=== PATIENT | male | born 1940 | race Caucasian/White ===

== ENCOUNTER → 2020-03-16 11:05 | Outpatient (BNVA) | payer MEDICARE, OTHER, SELFPAY | PROVIDERS: PCP Internal Medicine; Visit Provider Surgery Vascular Surgery | DX: I83.11 Varicose veins of right lower extremity with inflammation (principal); Z98.890 Other specified postprocedural states | CPT/HCPCS: 99213 ==

== ENCOUNTER → 2020-03-23 11:42 | Outpatient (BNVA) | payer MEDICARE, OTHER, SELFPAY | PROVIDERS: PCP Internal Medicine; Visit Provider Internal Medicine | DX: I48.92 Unspecified atrial flutter (principal); Z51.81 Encounter for therapeutic drug level monitoring; Z79.01 Long term (current) use of anticoagulants | CPT/HCPCS: 85610 ==

== ENCOUNTER 2020-04-07 10:39 | Outpatient (REF) | payer MEDICARE, OTHER, SELFPAY ==
[2020-04-07 13:51] LABS: MANUAL DIFF FLAG NO
[2020-04-07 14:02] LABS: Basophils Absolute Auto 0.1 X10*3/uL (0.0-0.2); Basophils Percent Auto 0.9 % (0-2); Hematocrit 45.4 % (42-52); Hemoglobin 14.4 g/dl (14.0-18.0); Imm Gran Abs Auto 0.02 X10*3/uL (0.00-0.03); Imm Gran Pct Auto 0.3 % (0.0-0.4); Mean Corpuscular HGB Conc 31.7 g/dl (31.0-36.0); Mean Corpuscular Hemoglobin 28.2 pg (27.0-33.0); Mean Platelet Volume 12.1 fL (9.4-12.4); Monocytes Absolute Auto 0.8 X10*3/uL (0.1-1.2); Monocytes Percent Auto 10.6 % (2-11); Neutrophils Absolute Auto 4.9 X10*3/uL (2.0-8.3); Neutrophils Percent Auto 62.2 % (45-73); Platelet Count 151 X10*3/uL (160-400); Red Cell Distribution Width 13.4 % (11.0-16.0); White Blood Count 7.8 X10*3/uL (4.8-10.8)
[2020-04-07 14:26] LABS: Alanine Aminotransferase 24 U/L (0-40); Alkaline Phosphatase 71 U/L (39-117); Anion Gap 12 (12-20); Aspartate Amino Transferase 23 U/L (5-37); Bilirubin Total 0.8 mg/dL (0.0-1.0); Blood Urea Nitrogen 26 mg/dL (9-16); Calcium 8.5 mg/dL (8.4-10.2); Carbon Dioxide 29 mmol/L (22-29); Chloride 102 mmol/L (96-108); Cholesterol 209 mg/dL; Estimated Glomerular Filt Rate > 60; Glucose Random 90 mg/dL (60-115); HDL Cholesterol 67 mg/dL; LDL Cholesterol Calculated 113 mg/dl; Potassium 4.5 mmol/l (3.3-5.1); Sodium 138 mmol/L (135-145); Total Protein 6.8 g/dL (6.5-8.0); Triglycerides 147 mg/dL
[2020-04-07 14:47] LABS: Prostate Specific Antigen 0.09 ng/mL (<0.05-4.0)
[2020-04-12 11:41] LABS: IgA 109 mg/dL (70-320); IgG 1312 mg/dL (600-1540); IgM 65 mg/dL (50-300)
== END 2020-04-07 10:40 | disposition home or self-care (01) ==
LOC: HO.HMGCLDS 10:39
PROVIDERS: PCP Internal Medicine; Visit Provider Internal Medicine Medical Oncology
DX: D47.2 Monoclonal gammopathy (principal); N40.0 Benign prostatic hyperplasia without lower urinary tract symptoms; C67.9 Malignant neoplasm of bladder, unspecified; C61 Malignant neoplasm of prostate; E66.09 Other obesity due to excess calories
CPT/HCPCS: 36415; 80053; 80061; 82784; 84153; 85025; 86334

== ENCOUNTER → 2020-04-20 11:30 | Outpatient (BNVA) | payer MEDICARE, OTHER, SELFPAY | PROVIDERS: PCP Internal Medicine; Visit Provider Internal Medicine | DX: I48.92 Unspecified atrial flutter (principal); Z51.81 Encounter for therapeutic drug level monitoring; Z79.01 Long term (current) use of anticoagulants | CPT/HCPCS: 85610; 99211 ==

== ENCOUNTER → 2020-05-20 10:49 | Outpatient (BNVA) | payer MEDICARE, OTHER, SELFPAY | PROVIDERS: PCP Internal Medicine; Visit Provider Internal Medicine | DX: I48.92 Unspecified atrial flutter (principal); Z51.81 Encounter for therapeutic drug level monitoring; Z79.01 Long term (current) use of anticoagulants | CPT/HCPCS: 85610; 99211 ==

== ENCOUNTER → 2020-06-15 09:25 | Outpatient (BNVA) | payer MEDICARE, OTHER, SELFPAY | PROVIDERS: PCP Internal Medicine; Referring Provider Internal Medicine; Visit Provider Surgery Vascular Surgery | DX: I83.11 Varicose veins of right lower extremity with inflammation (principal) | CPT/HCPCS: 99212 ==

== ENCOUNTER → 2020-06-17 11:06 | Outpatient (BNVA) | payer MEDICARE, OTHER, SELFPAY | PROVIDERS: PCP Internal Medicine; Visit Provider Internal Medicine | DX: I48.92 Unspecified atrial flutter (principal); Z79.01 Long term (current) use of anticoagulants; Z51.81 Encounter for therapeutic drug level monitoring | CPT/HCPCS: 85610; 99211 ==

== ENCOUNTER 2020-07-02 10:11 | Outpatient (REF) | payer MEDICARE, OTHER, SELFPAY ==
[2020-07-02 12:12] LABS: Prostate Specific Antigen 0.11 ng/mL (<0.05-4.0)
== END 2020-07-02 10:12 | disposition home or self-care (01) ==
LOC: HO.HMGCLDS 10:11
PROVIDERS: PCP Internal Medicine; Visit Provider Urology
DX: C61 Malignant neoplasm of prostate (principal); Z12.5 Encounter for screening for malignant neoplasm of prostate
CPT/HCPCS: 36415; 84153

== ENCOUNTER → 2020-07-09 10:25 | Outpatient (BNVA) | payer MEDICARE, OTHER, SELFPAY | PROVIDERS: PCP Internal Medicine; Visit Provider Urology | DX: Z13.89 Encounter for screening for other disorder (principal) | CPT/HCPCS: Q3014 ==

== ENCOUNTER → 2020-07-15 11:03 | Outpatient (BNVA) | payer MEDICARE, OTHER, SELFPAY | PROVIDERS: PCP Internal Medicine; Visit Provider Internal Medicine | DX: I48.92 Unspecified atrial flutter (principal); Z51.81 Encounter for therapeutic drug level monitoring; Z79.01 Long term (current) use of anticoagulants | CPT/HCPCS: 85610; 99211 ==

== ENCOUNTER → 2020-08-12 11:12 | Outpatient (BNVA) | payer MEDICARE, OTHER, SELFPAY | PROVIDERS: PCP Internal Medicine; Visit Provider Internal Medicine | DX: I48.92 Unspecified atrial flutter (principal); Z51.81 Encounter for therapeutic drug level monitoring; Z79.01 Long term (current) use of anticoagulants | CPT/HCPCS: 85610; 99211 ==

== ENCOUNTER → 2020-08-20 15:10 | Outpatient (REF) | payer MEDICARE, OTHER, SELFPAY ==
--- NOTE | 2020-08-20 15:13 | CA_ITS ---
Transthoracic Echocardiogram Patient (Last, First, Middle): Jung Funes C Gender: Male Date of : 1940 Age: 80 Procedure Date: 08/20/2020 Procedure Type: Transthoracic Echocardiogram Location: OP Height: 162.56 cm Weight: 90.72 kg BSA: 1.96 m2 Heart Rate: bpm BP: 132 / 65 mmHg Mold Tooling Technician: SATHYA Referring MD: Ever Davis MD Promotional Model: Bryce Yu MD Symptoms: I48.0 PAF Study Quality: Fair ECG Rhythm: Ventriculary paced rhythm Conclusions: - 1. Normal LV systolic function 2. At least mildly dilated left atrium 3. Mild aortic regurgitation 4. Normal calculated RV systolic pressure with elevated right atrial pressures 5. No gross pericardial effusion Findings Left Ventricle Normal left ventricular size, thickness, and systolic function. The visually estimated ejection fraction is between 60-65%. There is paradoxical septal motion consistent with a right ventricular pacemaker. Diastolic function is indeterminate on the basis of available data. Right Ventricle Normal right ventricular cavity size and systolic function. There is a pacemaker wire seen in the right ventricle. Atria The left atrium is mildly dilated. Interatrial shunt cannot be excluded. The right atrium is normal in size. A pacemaker wire is identified in the right atrium. Aortic Valve The aortic valve structure and function is likely normal. There is no aortic valve stenosis. There is mild aortic valve regurgitation. Mitral Valve There is mild anterior mitral leaflet thickening. There is trace mitral valve regurgitation. There is no mitral valve stenosis. Pulmonic Valve The pulmonic valve was not well visualized. Tricuspid Valve Likely normal tricuspid valve structure and function. There is mild tricuspid valve regurgitation. The right ventricular systolic pressure is normal. Mildly elevated right atrial pressure. There is no evidence of pulmonary hypertension. Great Vessels The pulmonary artery was not well visualized. There is mild dilatation of the ascending aorta measuring 4.10 cm. Venous The inferior vena cava is mildly dilated and collapses less than 50% with inspiration. Pericardium/Pleural There is no evidence of pericardial effusion. Prior Study Comparison No previous study in the last 5 years for comparison Measurements M-Mode Liner Measurements Normals - Women/Men AOV Cusps: 2.10 1.5-2.6 cm/m2 2D Linear Measurements IVSd: 1.03 0.6-0.9/0.6-1.0 cm LVIDd: 5.21 3.9-5.3/4.2-5.9 cm LVIDd Index: 2.66 2.4-3.2/2.2-3.1 cm/m2 LVIDs: 3.37 2.0-3.6 cm LVPWd: 1.01 0.7-1.1 cm Ao Root: 4.20 2.1-3.5 cm LA Diam: 3.90 2.7-3.8/3.0-4.0 cm LAIDs Index: 1.99 1.5-2.3 cm/m2 LV Mass: 249.24 67-162/88-224 g LV Mass Index: 127.17 43-95/49-115 g/m2 LVOT Diam: 2.20 3.0+(-)1.3 cm 2D Systolic Function EF 4C: 61.50 >55% EF 2C: 77.10 >55% EF BiP: 71.90 >55% Mitral Valve MV Pk E: 1.07 MV PK A: 0.47 MV Decel Time: 167.00 E/A: 2.30 E'Lateral: 9.46 E'Medial: 4.57 E/E' Med: 23.40 E/E' Lat: 11.30 PHT: 49.00 MVA PHT: 4.49 Decel Cochran: 6.40 Aortic Valve AoV Pk Luisito: 1.34 AoV Pk Grad: 7.00 LVOT LVOT Pk Luisito: 0.85 LVOT Mn Luisito: 0.62 LVOT VTI: 0.19 LVOT Pk Grad: 3.00 LVOT Mn Grad: 2.00 LVOT Diam: 2.20 LVOT Area: 3.80 Diastolic Function MV Pk E: 1.07 MV Pk A: 0.47 E/A: 2.30 E'Medial: 4.57 E/E' Med: 23.40 E' Laterial: 9.46 E/E' Lat: 11.30 Tricuspid Valve TR Pk Luisito: 2.67 TR Pk Grad: 29.00 RA Press: 8.00 RVSP: 37.00 Great Vessels Aorta Ao Root-2D: 4.20 2.0-3.7 cm Ao Asc: 4.10 2.1-3.4 cm Pulmonary Valve PV Pk Luisito: 0.92 Peak PV Grad: 3.00 Updated in Other Vendor System with Status of Final Bryce Yu MD electronically signed on 08/20/2020 4:50:34 PM with status of Final
== END ==
LOC: HO.CARD 15:10
PROVIDERS: Visit Provider Internal Medicine
DX: I48.0 Paroxysmal atrial fibrillation (principal)
CPT/HCPCS: 93306

== ENCOUNTER → 2020-08-30 13:59 | Outpatient (BNVA) | payer MEDICARE, OTHER, SELFPAY | PROVIDERS: PCP Internal Medicine; Visit Provider Internal Medicine | DX: I48.0 Paroxysmal atrial fibrillation (principal); I10 Essential (primary) hypertension; I77.810 Thoracic aortic ectasia | CPT/HCPCS: 93005; 99212 ==

== ENCOUNTER → 2020-09-09 11:09 | Outpatient (BNVA) | payer MEDICARE, OTHER, SELFPAY | PROVIDERS: PCP Internal Medicine; Visit Provider Internal Medicine | DX: I48.92 Unspecified atrial flutter (principal); Z51.81 Encounter for therapeutic drug level monitoring; Z79.01 Long term (current) use of anticoagulants | CPT/HCPCS: 85610; 99211 ==

== ENCOUNTER → 2020-09-14 09:15 | Outpatient (BNVA) | payer MEDICARE, OTHER, SELFPAY | PROVIDERS: PCP Internal Medicine; Visit Provider Surgery Vascular Surgery | DX: I83.11 Varicose veins of right lower extremity with inflammation (principal) | CPT/HCPCS: 99212 ==

== ENCOUNTER 2020-09-30 11:21 | Outpatient (REF) | payer MEDICARE, OTHER, SELFPAY ==
[2020-09-30 14:56] LABS: Prostate Specific Antigen 0.15 ng/mL (<0.05-4.0)
== END 2020-09-30 11:22 | disposition home or self-care (01) ==
LOC: HO.HMGCLDS 11:21
PROVIDERS: PCP Internal Medicine; Visit Provider Radiology Radiation Oncology
DX: Z12.5 Encounter for screening for malignant neoplasm of prostate (principal); C61 Malignant neoplasm of prostate
CPT/HCPCS: 36415; 84153

== ENCOUNTER 2020-10-06 10:39 | Outpatient (REF) | payer MEDICARE, OTHER, SELFPAY ==
[2020-10-06 11:36] LABS: MANUAL DIFF FLAG NO
[2020-10-06 11:51] LABS: Basophils Absolute Auto 0.1 X10*3/uL (0.0-0.2); Hematocrit 44.2 % (42-52); Hemoglobin 14.3 g/dl (14.0-18.0); Imm Gran Abs Auto 0.02 X10*3/uL (0.00-0.03); Imm Gran Pct Auto 0.3 % (0.0-0.4); Lymphocytes Absolute Auto 1.5 X10*3/uL (1.2-4.9); Mean Corpuscular HGB Conc 32.4 g/dl (31.0-36.0); Mean Corpuscular Hemoglobin 28.8 pg (27.0-33.0); Mean Corpuscular Volume 89.1 fL (80-98); Mean Platelet Volume 12.4 fL (9.4-12.4); Monocytes Absolute Auto 0.8 X10*3/uL (0.1-1.2); Monocytes Percent Auto 11.7 % (2-11); Neutrophils Absolute Auto 4.6 X10*3/uL (2.0-8.3); Platelet Count 145 X10*3/uL (160-400); Red Blood Count 4.96 X10*6/uL (4.60-5.80); Red Cell Distribution Width 13.3 % (11.0-16.0)
[2020-10-06 12:10] LABS: Alanine Aminotransferase 30 U/L (0-40); Alkaline Phosphatase 77 U/L (39-117); Anion Gap 11 (12-20); Aspartate Amino Transferase 20 U/L (5-37); Bilirubin Total 0.9 mg/dL (0.0-1.0); Blood Urea Nitrogen 24 mg/dL (9-16); Carbon Dioxide 27 mmol/L (22-29); Chloride 107 mmol/L (96-108); Estimated Glomerular Filt Rate > 60; Glucose Random 75 mg/dL (60-115); Potassium 4.3 mmol/L (3.3-5.1); Sodium 141 mmol/L (135-145); Total Protein 6.5 g/dL (6.5-8.0)
[2020-10-08 10:17] LABS: IgA 105 mg/dL (70-320); IgG 1219 mg/dL (600-1540); IgM 84 mg/dL (50-300)
== END 2020-10-06 10:40 | disposition home or self-care (01) ==
LOC: HO.LAB 10:39
PROVIDERS: PCP Internal Medicine; Visit Provider Internal Medicine Medical Oncology
DX: I48.92 Unspecified atrial flutter (principal); D47.2 Monoclonal gammopathy; Z51.81 Encounter for therapeutic drug level monitoring; Z79.01 Long term (current) use of anticoagulants
CPT/HCPCS: 36415; 80053; 82784; 85025; 85610; 86334; 99211

== ENCOUNTER 2020-10-14 08:09 | Outpatient (REF) | payer MEDICARE, OTHER, SELFPAY ==
[2020-10-14 11:48] LABS: Hematocrit 48.1 % (42-52); Hemoglobin 15.2 g/dl (14.0-18.0); Mean Corpuscular HGB Conc 31.6 g/dl (31.0-36.0); Mean Corpuscular Hemoglobin 28.4 pg (27.0-33.0); Mean Corpuscular Volume 89.9 fL (80-98); Mean Platelet Volume 12.2 fL (9.4-12.4); Platelet Count 145 X10*3/uL (160-400); Red Blood Count 5.35 X10*6/uL (4.60-5.80); Red Cell Distribution Width 13.6 % (11.0-16.0)
[2020-10-14 12:12] LABS: Alanine Aminotransferase 23 U/L (0-40); Albumin Level 4.3 g/dL (3.5-5.0); Alkaline Phosphatase 80 U/L (39-117); Anion Gap 10 (12-20); Aspartate Amino Transferase 22 U/L (5-37); Bilirubin Total 1.1 mg/dL (0.0-1.0); Blood Urea Nitrogen 24 mg/dL (9-16); Calcium 9.3 mg/dL (8.4-10.2); Carbon Dioxide 29 mmol/L (22-29); Chloride 106 mmol/L (96-108); Cholesterol 186 mg/dL; Estimated Glomerular Filt Rate > 60; Glucose Fasting 94 mg/dL (60-99); HDL Cholesterol 65 mg/dL; LDL Cholesterol Calculated 102 mg/dl; Potassium 4.4 mmol/L (3.3-5.1); Sodium 141 mmol/L (135-145); Total Protein 7.2 g/dL (6.5-8.0); Triglycerides 97 mg/dL
== END 2020-10-14 08:10 | disposition home or self-care (01) ==
LOC: HO.HMGCLDS 08:09
PROVIDERS: PCP Internal Medicine; Visit Provider Internal Medicine
DX: E78.5 Hyperlipidemia, unspecified (principal); I10 Essential (primary) hypertension; I83.11 Varicose veins of right lower extremity with inflammation; Z79.01 Long term (current) use of anticoagulants
CPT/HCPCS: 36415; 80053; 80061; 85027

== ENCOUNTER → 2020-11-03 11:22 | Outpatient (BNVA) | payer MEDICARE, OTHER, SELFPAY | PROVIDERS: PCP Internal Medicine; Visit Provider Internal Medicine | DX: I48.92 Unspecified atrial flutter (principal); Z51.81 Encounter for therapeutic drug level monitoring; Z79.01 Long term (current) use of anticoagulants | CPT/HCPCS: 85610; 99211 ==

== ENCOUNTER → 2020-11-18 11:23 | Outpatient (BNVA) | payer MEDICARE, OTHER, SELFPAY | PROVIDERS: PCP Internal Medicine; Visit Provider Internal Medicine | DX: I48.92 Unspecified atrial flutter (principal); Z51.81 Encounter for therapeutic drug level monitoring; Z79.01 Long term (current) use of anticoagulants | CPT/HCPCS: 85610; 99211 ==

== ENCOUNTER → 2020-12-16 11:26 | Outpatient (BNVA) | payer MEDICARE, OTHER, SELFPAY | PROVIDERS: PCP Internal Medicine; Visit Provider Internal Medicine | DX: I48.92 Unspecified atrial flutter (principal); Z51.81 Encounter for therapeutic drug level monitoring; Z79.01 Long term (current) use of anticoagulants | CPT/HCPCS: 85610; 99211 ==

== ENCOUNTER → 2021-01-20 11:28 | Outpatient (BNVA) | payer MEDICARE, OTHER, SELFPAY | PROVIDERS: PCP Internal Medicine; Visit Provider Internal Medicine | DX: I48.92 Unspecified atrial flutter (principal); Z51.81 Encounter for therapeutic drug level monitoring; Z79.01 Long term (current) use of anticoagulants | CPT/HCPCS: 85610; 99211 ==

== ENCOUNTER 2021-02-11 09:27 | Outpatient (REF) | payer MEDICARE, OTHER, SELFPAY ==
[2021-02-11 11:19] LABS: MANUAL DIFF FLAG NO
[2021-02-11 11:23] LABS: Basophils Percent Auto 0.7 % (0-2); Eosinophils Absolute Auto 0.1 X10*3/uL (0.0-0.4); Eosinophils Percent Auto 1.6 % (0-4); Hematocrit 44.7 % (42-52); Hemoglobin 14.5 g/dl (14.0-18.0); Imm Gran Abs Auto 0.01 X10*3/uL (0.00-0.03); Imm Gran Pct Auto 0.2 % (0.0-0.4); Lymphocytes Absolute Auto 1.4 X10*3/uL (1.2-4.9); Lymphocytes Percent Auto 25.1 % (20-40); Mean Corpuscular HGB Conc 32.4 g/dl (31.0-36.0); Mean Corpuscular Hemoglobin 29.1 pg (27.0-33.0); Mean Corpuscular Volume 89.6 fL (80-98); Mean Platelet Volume 11.7 fL (9.4-12.4); Monocytes Absolute Auto 0.6 X10*3/uL (0.1-1.2); Monocytes Percent Auto 10.5 % (2-11); Neutrophils Absolute Auto 3.4 X10*3/uL (2.0-8.3); Neutrophils Percent Auto 61.9 % (45-73); Platelet Count 142 X10*3/uL (160-400); Red Blood Count 4.99 X10*6/uL (4.60-5.80); Red Cell Distribution Width 13.5 % (11.0-16.0); White Blood Count 5.5 X10*3/uL (4.8-10.8)
[2021-02-11 11:37] LABS: Alanine Aminotransferase 20 U/L (0-40); Albumin Level 4.1 g/dL (3.5-5.0); Alkaline Phosphatase 79 U/L (39-117); Anion Gap 11 (12-20); Aspartate Amino Transferase 22 U/L (5-37); Bilirubin Total 1.1 mg/dL (0.0-1.0); Blood Urea Nitrogen 23 mg/dL (9-16); Calcium 9.2 mg/dL (8.4-10.2); Carbon Dioxide 26 mmol/L (22-29); Chloride 108 mmol/L (96-108); Cholesterol 179 mg/dL; Estimated Glomerular Filt Rate > 60; Glucose Fasting 89 mg/dL (60-99); HDL Cholesterol 67 mg/dL; LDL Cholesterol Calculated 98 mg/dl; Potassium 4.1 mmol/L (3.3-5.1); Sodium 141 mmol/L (135-145); Total Protein 6.7 g/dL (6.5-8.0); Triglycerides 74 mg/dL
[2021-02-11 12:00] LABS: Prostate Specific Antigen 0.09 ng/mL (<0.05-4.0)
[2021-02-15 21:06] LABS: PES - Abn Protein Band 1 0.5 g/dL (NONE DETECTED); Prot Elec - Albumin 4.2 g/dL (3.8-4.8); Prot Elec - Alpha1 0.3 g/dL (0.2-0.3); Prot Elec - Alpha2 0.7 g/dL (0.5-0.9); Prot Elec - Beta 1 0.4 g/dL (0.4-0.6); Prot Elec - Beta 2 0.2 g/dL (0.2-0.5); Prot Elec - Gamma 1.2 g/dL (0.8-1.7); Prot Elec - Total Protein 6.9 g/dL (6.1-8.1)
[2021-02-15 22:11] LABS: Kappa Light Chain, Free Serum 28.5 mg/L (3.3-19.4); Kappa/Lambda Lt Ch Free Ratio 0.96 (0.26-1.65); Lambda Light Chain, Free Serum 29.6 mg/L (5.7-26.3)
[2021-02-16 11:42] LABS: IgA 111 mg/dL (70-320); IgG 1255 mg/dL (600-1540); IgM 75 mg/dL (50-300)
[2021-02-16 15:31] LABS: Kappa, Serum 212 mg/dL (176-443); Kappa/Lambda Ratio, Serum 1.13 (1.29-2.55); Lambda, Serum 188 mg/dL (91-240)
== END 2021-02-11 09:28 | disposition home or self-care (01) ==
LOC: HO.HMGCLDS 09:27
PROVIDERS: PCP Internal Medicine; Visit Provider Internal Medicine Medical Oncology
DX: Z12.5 Encounter for screening for malignant neoplasm of prostate (principal); D47.2 Monoclonal gammopathy; N40.0 Benign prostatic hyperplasia without lower urinary tract symptoms; C61 Malignant neoplasm of prostate; E66.8 Other obesity
CPT/HCPCS: 36415; 80053; 80061; 82784; 83520; 83883; 84153; 84165; 85025; 86334

== ENCOUNTER → 2021-02-17 10:17 | Outpatient (BNVA) | payer MEDICARE, OTHER, SELFPAY | PROVIDERS: PCP Internal Medicine; Visit Provider Internal Medicine | DX: I48.92 Unspecified atrial flutter (principal); Z51.81 Encounter for therapeutic drug level monitoring; Z79.01 Long term (current) use of anticoagulants | CPT/HCPCS: 85610; 99211 ==

== ENCOUNTER 2021-03-10 11:49 | Outpatient (REF) | payer MEDICARE, OTHER, SELFPAY ==
[2021-03-10 14:42] LABS: PSA,Total (Free>4and<10) 0.09 ng/mL (0.00-4.00)
== END 2021-03-10 11:50 | disposition home or self-care (01) ==
LOC: HO.HMGCLDS 11:49
PROVIDERS: PCP Internal Medicine; Visit Provider Urology
DX: Z12.5 Encounter for screening for malignant neoplasm of prostate (principal); C61 Malignant neoplasm of prostate
CPT/HCPCS: 36415; 84153

== ENCOUNTER → 2021-03-16 15:40 | Outpatient (BNVA) | payer MEDICARE, OTHER, SELFPAY | PROVIDERS: PCP Internal Medicine; Visit Provider Urology | DX: N52.35 Erectile dysfunction following radiation therapy (principal); C67.9 Malignant neoplasm of bladder, unspecified; C61 Malignant neoplasm of prostate | CPT/HCPCS: 99212 ==

== ENCOUNTER → 2021-03-17 11:12 | Outpatient (BNVA) | payer MEDICARE, OTHER, SELFPAY | PROVIDERS: PCP Internal Medicine; Visit Provider Internal Medicine | DX: I48.92 Unspecified atrial flutter (principal); Z51.81 Encounter for therapeutic drug level monitoring; Z79.01 Long term (current) use of anticoagulants | CPT/HCPCS: 85610; 99211 ==

== ENCOUNTER → 2021-04-14 11:19 | Outpatient (BNVA) | payer MEDICARE, OTHER, SELFPAY | PROVIDERS: PCP Internal Medicine; Visit Provider Internal Medicine | DX: I48.92 Unspecified atrial flutter (principal); Z51.81 Encounter for therapeutic drug level monitoring; Z79.01 Long term (current) use of anticoagulants | CPT/HCPCS: 85610; 99211 ==

== ENCOUNTER 2021-04-29 07:57 | Outpatient (REF) | payer MEDICARE, OTHER, SELFPAY ==
[2021-04-29 11:33] LABS: Hematocrit 45.8 % (42.0-52.0); Hemoglobin 14.5 g/dl (14.0-18.0); Mean Corpuscular HGB Conc 31.7 g/dl (31.0-36.0); Mean Corpuscular Hemoglobin 28.5 pg (27.0-33.0); Mean Platelet Volume 12.5 fL (9.4-12.4); Platelet Count 154 X10*3/uL (160-400); Red Blood Count 5.09 X10*6/uL (4.60-5.80); Red Cell Distribution Width 13.1 % (11.0-16.0); White Blood Count 6.6 X10*3/uL (4.8-10.8)
[2021-04-29 12:12] LABS: Alanine Aminotransferase 21 U/L (0-40); Alkaline Phosphatase 75 U/L (39-117); Anion Gap 13 (12-20); Aspartate Amino Transferase 21 U/L (5-37); Blood Urea Nitrogen 27 mg/dL (9-16); Calcium 8.9 mg/dL (8.4-10.2); Carbon Dioxide 26 mmol/L (22-29); Chloride 106 mmol/L (96-108); Estimated Glomerular Filt Rate > 60; Glucose Random 94 mg/dL (60-115); Potassium 4.5 mmol/L (3.3-5.1); Sodium 140 mmol/L (135-145); Total Protein 6.9 g/dL (6.5-8.0)
== END 2021-04-29 07:58 | disposition home or self-care (01) ==
LOC: HO.HMGCLDS 07:57
PROVIDERS: PCP Internal Medicine; Visit Provider Internal Medicine
DX: E78.5 Hyperlipidemia, unspecified (principal); I10 Essential (primary) hypertension; I48.0 Paroxysmal atrial fibrillation
CPT/HCPCS: 36415; 80053; 85027

== ENCOUNTER 2021-05-11 11:04 | Outpatient (RCR) | payer MEDICARE, OTHER, SELFPAY ==
--- NOTE | 2021-05-12 08:28 | MHC.OT.OEV ---
[address] [phone] F: [phone] Occupational Therapy Evaluation Diagnosis: LATERAL EPICONDYLITIS OF LT ELBOW Date of Onset: 02/09/21 Attending Provider: Minnie Lowe Prescribed Treatment: KIKA KAN Follow Up Appointment: 06/18/20 History of Current Condition: REPORTS PAIN IN LEFT DORSAL FOREARM FOR ABOUT THREE MONTHS. HE STATES THE PAIN IS MOST SEVERE WITH LIFTING AND CARRYING ITEMS. PAIN RADIATES JUST PROXIMAL TO ELBOW DOWN TO RADIAL WRIST. Significant Medical History: MILD LEFT D3 OA, PPM (ATRIAL FLUTTER), BLADDER CANCER Precautions/Contraindications: [facility] Patient Goals: TO END THE PAIN Hand Dominance: Right QuickDASH Score: 16% Prior Level of Function and Occupation Self Care, Employment, Leisure: RETIRED. IND ADLs AND IADLs. 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 SPOUSE DOES MOST OF THE COOKING. 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 Living Situation, Family and/or Social Support: LIVES WITH SPOUSE Current Level of Function and Occupation Self Care, Employment, Leisure: DIFFICULTIES WITH LIFTING LAUNDRY WITH LEFT HAND OR CONTAINER OF WATER WITH OUTSTRETCHED ARM. PAIN WITH USE OF [address] IGOR (EXTENDED POLE) DENIES DIFFICULTIES WITH ADLs INCLUDING BUTTONS, ZIPPERS Sleep: MILD INTERRUPTIONS WITH SLEEPING Driving: NO DIFFICULTIES Pain Assessment Pain Score: 0-4/10 Pain Scale Used: Numeric (0 - 10) Pain Location and Description: PAINFREE AT REST 3-4/10 TO DORSAL FOREARM/ EXTENSOR WAD, SHARP PAIN Aggravating Factors: LIFTING, CARRYING, YARD WORK Alleviating Factors: REPOSITION ARM, ENJOYS SOAKING IN HOT TUB TAKES 1 ARTHRITIS PILL A DAY (FOR KNEES) Skin and Soft Tissue Assessment Skin and Soft Tissue: Fibrosis Comments: TENDER TO PALPATION AT EXTENSOR WAD OF LEFT FOREARM Edema Assessment Upper Extremity: Lower Extremity: Comments: CIRCUMFERENCE OF FOREARM, 20 CM PROXIMAL TO US LEFT 24.5 CM, RIGHT 23.5 CM CIRCUMFERENCE OF WRIST, DISTAL TO US LEFT 16.0 CM, RIGHT 15.8 CM Dexterity Assessment Dexterity: WNL Comments: Special Tests Comments: (+) COZENS AROM(PROM) Strength Elbow Flexion: L 145 Extension: L 3 Pronation: Supination: Comments: PAIN WITH RESISTED SUPINATION Flexion: Extension: Pronation: Supination: Comments: Wrist Flexion: L 40, R 42 Extension: L 62, R 48 Ulnar Deviation: Radial Deviation: Comments: Flexion: Extension: Ulnar Deviation: Radial Deviation: Comments: Thumb Thumb CMC Flexion: Thumb MCP Flexion: Thumb IP Flexion: Radial Abduction: Palmar Abduction: [place] (Kapandji 0-10): L 9, R 9 Comments: Digits Index MCP: PIP: DIP: Long MCP: PIP: DIP: Ring MCP: PIP: DIP: Small MCP: PIP: DIP: Comments: Gross Grasp: L 45, R 48 Lateral Pinch: Two-Point Pinch: Three-Jaw Niranjan: Comments: DENIES PAIN WITH MEDICAL INSURANCE VERIFIER TESTING WITH ELBOW EXTENDED: L 52, R 55 Patient Education Primary Language: Ivorian Washing Machine Loader Required: No Current Knowledge: Understands information with skills for self-management Teaching Method: Demonstration Handouts Phone Call Verbal Education Needs Identified on Evaluation: ADL's Disease Information Equipment Use Exercise Pain Safety How did patient/family demonstrate learning? Patient demonstrates Patient verbalizes Barriers to Learning: Hearing Readiness for Learning: Accepting Who was educated? Patient Comments: Plan of Care Assessment: MR OSMAN REPORTS A THREE MONTH HISTORY OF LEFT FOREARM PAIN THAT RADIATES FROM HIS DISTAL BICEP TO HIS RADIAL WRIST. HE STATES THAT THE PAIN IS REPRODUCED WITH LIFTING AND CARRYING OF OBJECTS > 5 POUNDS. HE STATES DOING MORE YARD WORK THIS FALL, WHICH INVOLVED USING A 10 FT POLE TO TRIM HIS BUSHES. A (+) COZENS SIGN WAS ELICITED AND REPORTED PAIN WITH RESISTED SUPINATION. A 16% LIMITATION IS REPORTED PER THE QUICK DASH ASSESSMENT. ONGOING SKILLED OT IS WARRANTED TO ACHIEVE OPTIMAL FUNCTIONAL LEVEL AND IMPROVE QOL. STG Duration: SEE BELOW Short Term Goals: SEE BELOW LTG Duration: 4 WEEKS Under Water Assistant Goals: IND HEP IND HEAT AND ICE QUICK DASH <8% IND JOINT PROTECTION AND ACTIVITY MODIFICATION STRATEGIES REPORT <2/10 PAIN WITH IADLs AND LIFTING ABOUT 10 POUNDS USING PROPER LIFTING STRATEGIES Frequency and Duration: The patient will be seen 2X/WEEK FOR 4 WEEKS Treatment Plan: Therapeutic Exercise Therapeutic Activity Home Exercise Program Splinting Neuro Re-ed Patient Education Desensitization/Sensory Re-ed Edema Control ADL Training Ultrasound NMES Iontophoresis Paraffin Fluidotherapy MHP Cold Packs Joint Mobilization Soft Tissue Mobilization Kinesiotaping Electronically Signed By: DARIEL CORONADO OTR/L Reviewed/agree with student documentation: N/A Therapist: Please sign and return to therapist, Thank you for your referral.
--- NOTE | 2021-05-26 07:37 | MHC.OT.DC ---
[address] [phone] F: [phone] Occupational Therapy Discharge Note Provider: Minnie Lowe Diagnosis: LATERAL EPICONDYLITIS OF LT ELBOW Date of Evaluation: 05/11/21 Date of Discharge: 05/26/21 Treatments to Date: 1 Cancellations to Date: 4 No Shows to Date: 0 Discharge Status: Patient Elected to Stop Discharge Summary: MR OSMAN PRESENTED TO OT WITH A DIAGNOSIS OF LATERAL EPICONDYLITIS. AT HIS FIRST INITIAL EVALUATION, Pt WAS EDUCATED ON MECHANISM OF INJURY, TASK MODIFICATION AND GENTLE STRETCHING. HE NOW REPORTS HIS ARM IS FEELING BETTER AND WOULD LIKE TO SELF DISCHARGE. D/C OT SERVICES. Electronically Signed By: DARIEL CORONADO OTR/Cassidy Reviewed/agree with student documentation: N/A Therapist: Please Sign and return to therapist, thank you for your referral.
== END 2021-05-26 13:05 | disposition home or self-care (01) ==
LOC: HO.OT 11:04
PROVIDERS: PCP Internal Medicine; Visit Provider Internal Medicine
DX: M77.12 Lateral epicondylitis, left elbow (principal)
CPT/HCPCS: 97035; 97110; 97166

== ENCOUNTER → 2021-05-12 11:10 | Outpatient (BNVA) | payer MEDICARE, OTHER, SELFPAY | PROVIDERS: PCP Internal Medicine; Visit Provider Internal Medicine | DX: I48.92 Unspecified atrial flutter (principal); Z51.81 Encounter for therapeutic drug level monitoring; Z79.01 Long term (current) use of anticoagulants | CPT/HCPCS: 85610; 99211 ==

== ENCOUNTER → 2021-06-22 10:57 | Outpatient (BNVA) | payer MEDICARE, OTHER, SELFPAY | PROVIDERS: PCP Internal Medicine; Visit Provider Internal Medicine | DX: I48.92 Unspecified atrial flutter (principal); Z51.81 Encounter for therapeutic drug level monitoring; Z79.01 Long term (current) use of anticoagulants | CPT/HCPCS: 85610; 99211 ==

== ENCOUNTER → 2021-07-20 11:21 | Outpatient (BNVA) | payer MEDICARE, OTHER, SELFPAY | PROVIDERS: PCP Internal Medicine; Visit Provider Internal Medicine | DX: I48.3 Typical atrial flutter (principal); Z51.81 Encounter for therapeutic drug level monitoring; Z79.01 Long term (current) use of anticoagulants | CPT/HCPCS: 85610; 99211 ==

== ENCOUNTER → 2021-07-28 14:08 | Outpatient (REF) | payer MEDICARE, OTHER, SELFPAY ==
--- NOTE | 2021-07-28 14:12 | CA_ITS ---
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 Normal LV systolic function with pseudonormal filling pattern 2. Mildly dilated left atrium 3. Mild aortic regurgitation 4. Normal RV systolic pressure 5. Mildly dilated ascending aorta at 4.2 cm 6. No gross pericardial effusion Findings Left Ventricle Normal left ventricular size, thickness, and systolic function. The visually estimated ejection fraction is between 60-65%. There is paradoxical septal motion consistent with a right ventricular pacemaker. Spectral Doppler is indicative of a pseudonormal filling pattern. measured global longitudinal endocardial strain is -13.9% which is reduced. Right Ventricle Normal right ventricular cavity size and systolic function. There is a pacemaker wire seen in the right ventricle. Atria The left atrium is mildly dilated. Interatrial shunt cannot be excluded. The right atrium is likely dilated. A pacemaker wire is identified in the right atrium. Aortic Valve There is mild calcification of the aortic valve. There is no aortic valve stenosis. There is mild aortic valve regurgitation. Mitral Valve Likely normal mitral valve structure and function. There is trace mitral valve regurgitation. There is no mitral valve stenosis. Pulmonic Valve The pulmonic valve was not well visualized. Tricuspid Valve Likely normal tricuspid valve structure and function. There is trace tricuspid valve regurgitation. Normal right atrial pressure. There is no evidence of pulmonary hypertension. Great Vessels The pulmonary artery was not well visualized. There is mild dilatation of the ascending aorta measuring 4.20 cm. Venous The inferior vena cava is normal in size and collapses greater than 50% with inspiration. Pericardium/Pleural There is no evidence of pericardial effusion. Prior Study Comparison No significant change compared to prior study dated: 08/20/2020. Measurements 2D Linear Measurements IVSd: 1.16 0.6-0.9/0.6-1.0 cm LVIDd: 4.26 3.9-5.3/4.2-5.9 cm LVIDd Index: 2.23 2.4-3.2/2.2-3.1 cm/m2 LVIDs: 3.02 2.0-3.6 cm LVPWd: 1.03 0.7-1.1 cm Ao Root: 4.30 2.1-3.5 cm LA Diam: 3.60 2.7-3.8/3.0-4.0 cm LAIDs Index: 1.88 1.5-2.3 cm/m2 LV Mass: 198.67 67-162/88-224 g LV Mass Index: 104.01 43-95/49-115 g/m2 LVOT Diam: 2.20 3.0+(-)1.3 cm 2D Systolic Function EF 4C: 61.50 >55% EF 2C: 60.40 >55% EF BiP: 60.40 >55% Aortic Valve AoV Pk Luisito: 1.22 AoV Mn Luisito: 0.83 AoV VTI: 0.22 AoV Pk Grad: 6.00 Aov Mn Grad: 3.00 CODY Cont.VTI: 3.10 LVOT LVOT Pk Luisito: 0.88 LVOT Mn Luisito: 0.64 LVOT VTI: 0.18 LVOT Pk Grad: 3.00 LVOT Mn Grad: 2.00 LVOT Diam: 2.20 LVOT Area: 3.80 Right Ventricle TAPSE (mm): 17.50 TVS' Luisito: 14.40 Tricuspid Valve TR Pk Luisito: 2.43 TR Pk Grad: 24.00 RA Press: 8.00 RVSP: 32.00 Great Vessels Aorta Ao Root-2D: 4.30 2.0-3.7 cm Ao Asc: 4.20 2.1-3.4 cm Ao Arch: 2.60 Updated in Other Vendor System with Status of Final Bryce Yu MD electronically signed on 07/29/2021 4:20:50 PM with status of Final
== END ==
LOC: HO.CARD 14:08
PROVIDERS: Visit Provider Internal Medicine
DX: I77.810 Thoracic aortic ectasia (principal)
CPT/HCPCS: 93306; 93356

== ENCOUNTER 2021-08-11 08:12 | Outpatient (REF) | payer MEDICARE, OTHER, SELFPAY ==
[2021-08-11 11:02] LABS: MANUAL DIFF FLAG NO
[2021-08-11 11:12] LABS: Basophils Absolute Auto 0.1 X10*3/uL (0.0-0.2); Basophils Percent Auto 1.1 % (0-2); Hematocrit 46.3 % (42.0-52.0); Hemoglobin 14.7 g/dl (14.0-18.0); Imm Gran Abs Auto 0.02 X10*3/uL (0.00-0.03); Imm Gran Pct Auto 0.3 % (0.0-0.4); Lymphocytes Absolute Auto 1.7 X10*3/uL (1.2-4.9); Lymphocytes Percent Auto 26.7 % (20-40); Mean Corpuscular HGB Conc 31.7 g/dl (31.0-36.0); Mean Corpuscular Hemoglobin 28.3 pg (27.0-33.0); Mean Corpuscular Volume 89.2 fL (80.0-98.0); Mean Platelet Volume 11.4 fL (9.4-12.4); Monocytes Absolute Auto 0.7 X10*3/uL (0.1-1.2); Monocytes Percent Auto 10.8 % (2-11); Neutrophils Percent Auto 61.1 % (45-73); Platelet Count 162 X10*3/uL (160-400); Red Blood Count 5.19 X10*6/uL (4.60-5.80); Red Cell Distribution Width 13.4 % (11.0-16.0); White Blood Count 6.5 X10*3/uL (4.8-10.8)
[2021-08-11 11:37] LABS: Sodium 142 mmol/L (135-145)
[2021-08-11 11:38] LABS: Alanine Aminotransferase 23 U/L (0-40); Albumin Level 4.1 g/dL (3.5-5.0); Alkaline Phosphatase 80 U/L (39-117); Anion Gap 11 (12-20); Aspartate Amino Transferase 24 U/L (5-37); Bilirubin Total 1.1 mg/dL (0.0-1.0); Blood Urea Nitrogen 35 mg/dL (9-16); Calcium 9.2 mg/dL (8.4-10.2); Carbon Dioxide 29 mmol/L (22-29); Chloride 106 mmol/L (96-108); Estimated Glomerular Filt Rate > 60; Glucose Random 94 mg/dL (60-115); Potassium 4.3 mmol/L (3.3-5.1)
[2021-08-12 13:06] LABS: IgA 123 mg/dL (70-320); IgG 1420 mg/dL (600-1540); IgM 76 mg/dL (50-300)
[2021-08-12 17:45] LABS: Kappa Light Chain, Free Serum 28.8 mg/L (3.3-19.4); Kappa/Lambda Lt Ch Free Ratio 1.35 (0.26-1.65); Lambda Light Chain, Free Serum 21.3 mg/L (5.7-26.3)
[2021-08-13 13:36] LABS: Beta-2 Microglobulin, Serum 2.49 mg/L (< OR = 2.51)
[2021-08-15 13:12] LABS: PES - Abn Protein Band 1 0.5 g/dL (NONE DETECTED); Prot Elec - Albumin 4.5 g/dL (3.8-4.8); Prot Elec - Alpha1 0.2 g/dL (0.2-0.3); Prot Elec - Alpha2 0.7 g/dL (0.5-0.9); Prot Elec - Beta 1 0.4 g/dL (0.4-0.6); Prot Elec - Beta 2 0.3 g/dL (0.2-0.5); Prot Elec - Gamma 1.4 g/dL (0.8-1.7); Prot Elec - Total Protein 7.5 g/dL (6.1-8.1)
[2021-08-16 15:36] LABS: Kappa, Serum 237 mg/dL (176-443); Kappa/Lambda Ratio, Serum 1.19 (1.29-2.55); Lambda, Serum 199 mg/dL (91-240)
== END 2021-08-11 08:13 | disposition home or self-care (01) ==
LOC: HO.HMGCLDS 08:12
PROVIDERS: PCP Internal Medicine; Visit Provider Internal Medicine Medical Oncology
DX: D47.2 Monoclonal gammopathy (principal); C67.9 Malignant neoplasm of bladder, unspecified; C61 Malignant neoplasm of prostate
CPT/HCPCS: 36415; 80053; 82232; 82784; 83521; 83883; 84165; 85025; 86334

== ENCOUNTER → 2021-08-17 11:42 | Outpatient (BNVA) | payer MEDICARE, OTHER, SELFPAY | PROVIDERS: PCP Internal Medicine; Visit Provider Internal Medicine | DX: I48.92 Unspecified atrial flutter (principal); Z51.81 Encounter for therapeutic drug level monitoring; Z79.01 Long term (current) use of anticoagulants | CPT/HCPCS: 85610; 99211 ==

== ENCOUNTER → 2021-09-05 12:37 | Outpatient (BNVA) | payer MEDICARE, OTHER, SELFPAY | PROVIDERS: PCP Internal Medicine; Referring Provider Internal Medicine; Visit Provider Internal Medicine | DX: Z45.018 Encounter for adjustment and management of other part of cardiac pacemaker (principal); I48.0 Paroxysmal atrial fibrillation; I77.810 Thoracic aortic ectasia; I10 Essential (primary) hypertension | CPT/HCPCS: 93005; 99212 ==

== ENCOUNTER → 2021-09-14 11:15 | Outpatient (BNVA) | payer MEDICARE, OTHER, SELFPAY | PROVIDERS: PCP Internal Medicine; Visit Provider Internal Medicine | DX: I48.92 Unspecified atrial flutter (principal); Z51.81 Encounter for therapeutic drug level monitoring; Z79.01 Long term (current) use of anticoagulants | CPT/HCPCS: 85610; 99211 ==

== ENCOUNTER → 2021-10-12 11:33 | Outpatient (BNVA) | payer MEDICARE, OTHER, SELFPAY | PROVIDERS: PCP Internal Medicine; Visit Provider Internal Medicine | DX: I48.92 Unspecified atrial flutter (principal); Z79.01 Long term (current) use of anticoagulants; Z51.81 Encounter for therapeutic drug level monitoring | CPT/HCPCS: 85610; 99211 ==

== ENCOUNTER 2021-10-19 10:55 | Outpatient (REF) | payer MEDICARE, OTHER, SELFPAY ==
[2021-10-19 14:10] LABS: Alanine Aminotransferase 27 U/L (0-40); Albumin Level 3.9 g/dL (3.5-5.0); Alkaline Phosphatase 74 U/L (39-117); Anion Gap 10 (12-20); Aspartate Amino Transferase 22 U/L (5-37); Bilirubin Total 1.3 mg/dL (0.0-1.0); Blood Urea Nitrogen 27 mg/dL (9-16); Calcium 9.1 mg/dL (8.4-10.2); Carbon Dioxide 27 mmol/L (22-29); Chloride 109 mmol/L (96-108); Cholesterol 165 mg/dL; Estimated Glomerular Filt Rate > 60; Glucose Fasting 97 mg/dL (60-99); HDL Cholesterol 61 mg/dL; LDL Cholesterol Calculated 91 mg/dl; Potassium 4.4 mmol/L (3.3-5.1); Sodium 142 mmol/L (135-145); Total Protein 6.8 g/dL (6.5-8.0); Triglycerides 67 mg/dL
== END 2021-10-19 10:56 | disposition home or self-care (01) ==
LOC: HO.HMGCLDS 10:55
PROVIDERS: PCP Internal Medicine; Visit Provider Internal Medicine
DX: E78.5 Hyperlipidemia, unspecified (principal); I10 Essential (primary) hypertension
CPT/HCPCS: 36415; 80053; 80061

== ENCOUNTER → 2021-11-14 11:34 | Outpatient (BNVA) | payer MEDICARE, OTHER, SELFPAY | PROVIDERS: PCP Internal Medicine; Visit Provider Internal Medicine | DX: I48.92 Unspecified atrial flutter (principal); Z79.01 Long term (current) use of anticoagulants; Z51.81 Encounter for therapeutic drug level monitoring | CPT/HCPCS: 85610; 99211 ==

== ENCOUNTER → 2021-12-22 11:20 | Outpatient (BNVA) | payer MEDICARE, OTHER, SELFPAY | PROVIDERS: PCP Internal Medicine; Visit Provider Internal Medicine | DX: I48.92 Unspecified atrial flutter (principal); Z51.81 Encounter for therapeutic drug level monitoring; Z79.01 Long term (current) use of anticoagulants | CPT/HCPCS: 85610; 99211 ==

== ENCOUNTER 2022-01-09 10:20 | Outpatient (REF) | payer MEDICARE, OTHER, SELFPAY ==
--- NOTE | ~2022-01-09 | US_ITS ---
EXAMINATION: US VENOUS ULTRASOUND WITH DOPPLER LOWER EXTREMITY, RIGHT CLINICAL INFORMATION: Right lower extremity pain and swelling. COMPARISON: None TECHNIQUE: Ultrasound of the deep veins is performed from the hip to the calf with compression sonography and color and pulse Doppler assessment. Spectral analysis with color-flow imaging is performed. FINDINGS: There is normal venous compression and respiratory variation and augmented flow. The visualized common femoral vein, superficial femoral vein, profunda femoral vein, popliteal vein, and the trifurcation region shows no evidence of deep venous thrombosis. Right popliteal cyst measuring 4.0 x 2.3 x 0.6 cm. Probable small to moderate right knee joint effusion. Moderate subcutaneous edema in the right calf. If the patient's symptoms persist, followup ultrasound in 5 days 7 days might be of value to exclude proximal propagation from a non-visualized calf vein. US/US venous duplex LE RT IMPRESSION: 1. No evidence for deep venous thrombosis in the visualized veins of the right lower extremity. 2. Right popliteal cyst as detailed above. 3. Small to moderate right knee joint effusion. 4. Moderate right calf subcutaneous edema.
== END 2022-01-09 10:21 | disposition home or self-care (01) ==
LOC: HO.HMGCX 10:20
PROVIDERS: Visit Provider Physician Assistant
DX: R22.41 Localized swelling, mass and lump, right lower limb (principal); M25.561 Pain in right knee
CPT/HCPCS: 93971

== ENCOUNTER 2022-01-10 10:56 | Outpatient (REF) | payer MEDICARE, OTHER, SELFPAY ==
--- NOTE | ~2022-01-10 | XR_ITS ---
EXAMINATION: XR KNEE, RIGHT CLINICAL INFORMATION: Right knee pain. COMPARISON: None TECHNIQUE: Four views of the right knee. FINDINGS: Mild to moderate tricompartmental degenerative joint changes are seen most pronounced in the femoral tibial compartments with joint space narrowing and chondrocalcinosis. There is no acute fracture or dislocation. Probable trace suprapatellar joint effusion. Moderate XR/XR knee RT 4V IMPRESSION: [id number] tricompartmental degenerative joint changes and probable trace suprapatellar joint effusion without definitive acute osseous abnormality. Moderate surrounding soft tissue swelling.
== END 2022-01-10 10:57 | disposition home or self-care (01) ==
LOC: HO.HMGCX 10:56
PROVIDERS: PCP Internal Medicine; Visit Provider Physician Assistant
DX: M25.561 Pain in right knee (principal)
CPT/HCPCS: 73564

== ENCOUNTER 2022-01-12 05:54 | Outpatient (REF) | payer MEDICARE, OTHER, SELFPAY ==
--- NOTE | ~2022-01-12 | XR_ITS ---
EXAMINATION: XR KNEE AP STANDING. Right knee. CLINICAL INFORMATION: Pain right knee COMPARISON: None TECHNIQUE: AP bilateral standing view of the knees was obtained. Right knee 1 view FINDINGS: AP bilateral knee standing: There is moderate loss of medial compartment joint space both knees with periarticular spurring. There are no loose bodies or bony erosive changes. There is calcification of menisci bilaterally. Right knee: There is moderate to severe loss of patellofemoral compartment joint space with periarticular spurring. No bony erosive changes seen. The soft tissues are normal. XR/XR knee RT 1V IMPRESSION: Moderate to severe degenerative changes medial compartment both knees. No visible acute fracture or dislocation seen. Bilateral chondrocalcinosis Moderate to severe degenerative changes patellofemoral compartment right knee.
--- NOTE | ~2022-01-12 | XR_ITS ---
EXAMINATION: XR KNEE AP STANDING. Right knee. CLINICAL INFORMATION: Pain right knee COMPARISON: None TECHNIQUE: AP bilateral standing view of the knees was obtained. Right knee 1 view FINDINGS: AP bilateral knee standing: There is moderate loss of medial compartment joint space both knees with periarticular spurring. There are no loose bodies or bony erosive changes. There is calcification of menisci bilaterally. Right knee: There is moderate to severe loss of patellofemoral compartment joint space with periarticular spurring. No bony erosive changes seen. The soft tissues are normal. XR/XR knee standing BI IMPRESSION: Moderate to severe degenerative changes medial compartment both knees. No visible acute fracture or dislocation seen. Bilateral chondrocalcinosis Moderate to severe degenerative changes patellofemoral compartment right knee.
== END 2022-01-12 05:55 | disposition home or self-care (01) ==
LOC: HO.HOSX 05:54
PROVIDERS: Visit Provider Physician Assistant
DX: M17.11 Unilateral primary osteoarthritis, right knee (principal); M25.562 Pain in left knee
CPT/HCPCS: 20610; 73560; 73565; 99202; J1040

== ENCOUNTER → 2022-01-25 11:27 | Outpatient (BNVA) | payer MEDICARE, OTHER, SELFPAY | PROVIDERS: PCP Internal Medicine; Visit Provider Internal Medicine | DX: I48.92 Unspecified atrial flutter (principal); Z79.01 Long term (current) use of anticoagulants; Z51.81 Encounter for therapeutic drug level monitoring | CPT/HCPCS: 85610; 99211 ==

== ENCOUNTER → 2022-01-27 11:28 | Outpatient (BNVA) | payer MEDICARE, OTHER, SELFPAY | PROVIDERS: PCP Internal Medicine; Visit Provider Internal Medicine | DX: I48.92 Unspecified atrial flutter (principal); Z79.01 Long term (current) use of anticoagulants; Z51.81 Encounter for therapeutic drug level monitoring | CPT/HCPCS: 85610; 99211 ==

== ENCOUNTER → 2022-02-06 11:10 | Outpatient (BNVA) | payer MEDICARE, OTHER, SELFPAY | PROVIDERS: PCP Internal Medicine; Visit Provider Internal Medicine | DX: I48.92 Unspecified atrial flutter (principal); Z51.81 Encounter for therapeutic drug level monitoring; Z79.01 Long term (current) use of anticoagulants | CPT/HCPCS: 85610; 99211 ==

== ENCOUNTER 2022-02-09 08:04 | Outpatient (REF) | payer MEDICARE, OTHER, SELFPAY ==
[2022-02-09 11:36] LABS: MANUAL DIFF FLAG NO
[2022-02-09 11:51] LABS: Basophils Percent Auto 0.7 % (0-2); Eosinophils Absolute Auto 0.2 X10*3/uL (0.0-0.4); Eosinophils Percent Auto 2.7 % (0-4); Hematocrit 42.6 % (42.0-52.0); Hemoglobin 13.8 g/dl (14.0-18.0); Imm Gran Abs Auto 0.02 X10*3/uL (0.00-0.03); Imm Gran Pct Auto 0.4 % (0.0-0.4); Lymphocytes Absolute Auto 1.3 X10*3/uL (1.2-4.9); Lymphocytes Percent Auto 23.7 % (20-40); Mean Corpuscular HGB Conc 32.4 g/dl (31.0-36.0); Mean Corpuscular Hemoglobin 29.4 pg (27.0-33.0); Mean Corpuscular Volume 90.6 fL (80.0-98.0); Mean Platelet Volume 11.7 fL (9.4-12.4); Monocytes Absolute Auto 0.6 X10*3/uL (0.1-1.2); Monocytes Percent Auto 10.9 % (2-11); Neutrophils Absolute Auto 3.5 x10*3/uL (2.0-8.3); Neutrophils Percent Auto 61.6 % (45-73); Platelet Count 118 X10*3/uL (160-400); Red Cell Distribution Width 15.5 % (11.0-16.0); White Blood Count 5.6 X10*3/uL (4.8-10.8)
[2022-02-14 14:17] LABS: IgA 109 mg/dL (70-320); IgG 1279 mg/dL (600-1540); IgM 60 mg/dL (50-300)
[2022-02-14 15:32] LABS: Kappa Light Chain, Free Serum 26.9 mg/L (3.3-19.4); Kappa/Lambda Lt Ch Free Ratio 1.36 (0.26-1.65); Lambda Light Chain, Free Serum 19.8 mg/L (5.7-26.3)
[2022-02-14 23:26] LABS: PES - Abn Protein Band 1 0.5 g/dL (NONE DETECTED); Prot Elec - Albumin 3.7 g/dL (3.8-4.8); Prot Elec - Alpha1 0.3 g/dL (0.2-0.3); Prot Elec - Alpha2 0.7 g/dL (0.5-0.9); Prot Elec - Beta 1 0.4 g/dL (0.4-0.6); Prot Elec - Beta 2 0.2 g/dL (0.2-0.5); Prot Elec - Gamma 1.1 g/dL (0.8-1.7); Prot Elec - Total Protein 6.4 g/dL (6.1-8.1)
[2022-02-18 15:32] LABS: Kappa, Serum 222 mg/dL (176-443); Kappa/Lambda Ratio, Serum 1.33 (1.29-2.55); Lambda, Serum 167 mg/dL (91-240)
== END 2022-02-09 08:05 | disposition home or self-care (01) ==
LOC: HO.HMGCLDS 08:04
PROVIDERS: PCP Internal Medicine; Visit Provider Internal Medicine Medical Oncology
DX: D47.2 Monoclonal gammopathy (principal)
CPT/HCPCS: 36415; 82784; 83521; 83883; 84165; 85025; 86334

== ENCOUNTER 2022-02-17 15:19 | Outpatient (REF) | payer MEDICARE, OTHER, SELFPAY ==
[2022-02-17 16:27] LABS: MANUAL DIFF FLAG NO
[2022-02-17 16:41] LABS: Anion Gap 14 (12-20); Carbon Dioxide 26 mmol/L (22-29); Chloride 105 mmol/L (96-108); Potassium 4.4 mmol/L (3.3-5.1); Sodium 141 mmol/L (135-145)
[2022-02-17 16:44] LABS: Basophils Percent Auto 0.6 % (0-2); Eosinophils Absolute Auto 0.2 X10*3/uL (0.0-0.4); Eosinophils Percent Auto 2.7 % (0-4); Hematocrit 41.8 % (42.0-52.0); Hemoglobin 13.7 g/dl (14.0-18.0); Imm Gran Abs Auto 0.02 X10*3/uL (0.00-0.03); Imm Gran Pct Auto 0.3 % (0.0-0.4); Lymphocytes Absolute Auto 1.5 X10*3/uL (1.2-4.9); Lymphocytes Percent Auto 22.6 % (20-40); Mean Corpuscular HGB Conc 32.8 g/dl (31.0-36.0); Mean Corpuscular Hemoglobin 29.2 pg (27.0-33.0); Mean Corpuscular Volume 89.1 fL (80.0-98.0); Mean Platelet Volume 11.4 fL (9.4-12.4); Monocytes Absolute Auto 0.7 X10*3/uL (0.1-1.2); Monocytes Percent Auto 10.7 % (2-11); Neutrophils Absolute Auto 4.3 x10*3/uL (2.0-8.3); Neutrophils Percent Auto 63.1 % (45-73); Platelet Count 162 X10*3/uL (160-400); Red Blood Count 4.69 X10*6/uL (4.60-5.80); Red Cell Distribution Width 15.5 % (11.0-16.0); White Blood Count 6.8 X10*3/uL (4.8-10.8)
[2022-02-17 16:52] LABS: B Type Natriuretic Peptide 295 pg/mL (<100); Troponin-I High Sensitivity 39.8 ng/L (<3.5-35.0)
[2022-02-20 12:46] LABS: NT-proBNP 1100 pg/mL
== END 2022-02-17 15:20 | disposition home or self-care (01) ==
LOC: HO.HMGCLDS 15:19
PROVIDERS: Absent Provider Internal Medicine Medical Oncology; PCP Internal Medicine
DX: R60.9 Edema, unspecified (principal)
CPT/HCPCS: 36415; 80051; 83880; 84484; 85025

== ENCOUNTER → 2022-02-20 11:11 | Outpatient (BNVA) | payer MEDICARE, OTHER, SELFPAY | PROVIDERS: PCP Internal Medicine; Visit Provider Internal Medicine | DX: I48.92 Unspecified atrial flutter (principal); Z79.01 Long term (current) use of anticoagulants; Z51.81 Encounter for therapeutic drug level monitoring | CPT/HCPCS: 85610; 99211 ==

== ENCOUNTER 2022-03-01 09:27 | Outpatient (REF) | payer MEDICARE, OTHER, SELFPAY ==
[2022-03-01 11:43] LABS: Anion Gap 13 (12-20); Blood Urea Nitrogen 28 mg/dL (9-16); Calcium 8.7 mg/dL (8.4-10.2); Carbon Dioxide 26 mmol/L (22-29); Chloride 107 mmol/L (96-108); Estimated Glomerular Filt Rate > 60; Glucose Random 95 mg/dL (60-115); Potassium 4.2 mmol/L (3.3-5.1); Sodium 142 mmol/L (135-145)
[2022-03-01 12:08] LABS: Prostate Specific Antigen 0.09 ng/mL (<0.05-4.0)
== END 2022-03-01 09:28 | disposition home or self-care (01) ==
LOC: HO.HMGCLDS 09:27
PROVIDERS: Urology; PCP Internal Medicine; Visit Provider Internal Medicine
DX: Z12.5 Encounter for screening for malignant neoplasm of prostate (principal); C61 Malignant neoplasm of prostate; N13.8 Other obstructive and reflux uropathy; N40.1 Benign prostatic hyperplasia with lower urinary tract symptoms; R60.9 Edema, unspecified
CPT/HCPCS: 36415; 80048; 84153

== ENCOUNTER → 2022-03-14 10:57 | Outpatient (BNVA) | payer MEDICARE, OTHER, SELFPAY | PROVIDERS: PCP Internal Medicine; Visit Provider Urology | DX: C61 Malignant neoplasm of prostate (principal); C67.9 Malignant neoplasm of bladder, unspecified; N52.35 Erectile dysfunction following radiation therapy | CPT/HCPCS: 99212 ==

== ENCOUNTER → 2022-03-28 11:39 | Outpatient (BNVA) | payer MEDICARE, OTHER, SELFPAY | PROVIDERS: PCP Internal Medicine; Visit Provider Internal Medicine | DX: I48.92 Unspecified atrial flutter (principal); Z79.01 Long term (current) use of anticoagulants; Z51.81 Encounter for therapeutic drug level monitoring | CPT/HCPCS: 85610; 99211 ==

== ENCOUNTER 2022-04-04 15:36 | Outpatient (REF) | payer MEDICARE, OTHER, SELFPAY ==
--- NOTE | ~2022-04-04 | US_ITS ---
EXAMINATION: Noninvasive assessment of the bilateral lower extremities with ARTERIAL DUPLEX CLINICAL INFORMATION: Peripheral vascular disease TECHNIQUE: Duplex Doppler techniques with waveform analysis and measurement of velocities in the bilateral common femoral, profunda femoris, superficial femoral, popliteal and tibial arteries were performed. COMPARISON: 02/25/2018 FINDINGS: DIRECT DUPLEX DOPPLER FINDINGS: RIGHT LEG: Common femoral artery: 104 cm/s, phasicity: Triphasic Profunda femoris artery: 66.3 cm/s, phasicity: Triphasic Superficial femoral artery (proximal): 92.5 cm/s, phasicity: Triphasic Superficial femoral artery (mid): 106 cm/s, phasicity: Triphasic Superficial femoral artery (distal): 104 cm/s, phasicity: Triphasic Popliteal artery: 63.4 cm/s, phasicity: Triphasic Posterior tibial artery: 104 cm/s, phasicity: Triphasic Peroneal artery: 49.1 cm/s, phasicity: Biphasic LEFT LEG: Common femoral artery: 79.1 cm/s, phasicity: Triphasic Profunda femoris artery: 52.2 cm/s, phasicity: Triphasic Superficial femoral artery (proximal): 85.6 cm/s, phasicity: Triphasic Superficial femoral artery (mid): 96.9 cm/s, phasicity: Triphasic Superficial femoral artery (distal): 120 cm/s, phasicity: Triphasic Popliteal artery: 69.6 cm/s, phasicity: Triphasic Posterior tibial artery: 87.0 cm/s, phasicity: Biphasic Peroneal artery: 58.0 cm/s, phasicity: Triphasic US/US arterial duplex LE BI IMPRESSION: Right leg: Normal duplex arterial ultrasound of the right lower extremity. No significant arterial stenosis or occlusion Left leg: Normal duplex arterial ultrasound of the left lower extremity. No significant arterial stenosis or occlusion
== END 2022-04-04 15:37 | disposition home or self-care (01) ==
LOC: HO.US 15:36
PROVIDERS: Visit Provider Internal Medicine
DX: I73.9 Peripheral vascular disease, unspecified (principal)
CPT/HCPCS: 93925

== ENCOUNTER 2022-04-12 15:29 | Outpatient (AMB) | payer MEDICARE, OTHER, SELFPAY ==
--- NOTE | 2022-04-12 15:42 | A.OFFVIS_ITS ---
Intake Intake Visit Reasons: Hydrocele Intake Note: Patient is present for Hydrocele Blood Thinner: Warfarin (Has pacemaker) Allergies No Known Allergies Allergy (Verified 12/21/22 11:15) HPI HPI Comments History of Present Illness Details Monica is a pleasant male. He is a patient of Dr. Lowe. He is seen for the following urologic conditions - prostate cancer - bladder cancer - erectile dysfunction Everything stable PSA stable Emptying stable Has upcoming March cystoscopy at [facility] No longer interested in sildenafil Prostate cancer brachytherapy 2015 [facility] Prostate cancer diagnosed by Dr. Joe Initial therapy brachytherapy at [facility] 2015 PSA well controlled subsequently Had mild associated urgency frequency responsive to Flomax Occasional nocturia PSA 03/01 0.1, 03/02 0.1 Continue surveillance Bladder cancer TURBT 2014 and 2015 Superficial bladder cancer diagnosed by Dr. Joe Management with TURBT Associated therapy immunotherapy induction at [facility] Check cystoscopies performed at [facility] Patient states last check cystoscopy normal Erectile Dysfunction Has not used any previous medication Previously prescribe sildenafil 100 mg Most common side effect is headache PFSH Medical History Annual physical exam Bladder cancer Bladder outlet obstruction Essential hypertension History of atrial fibrillation History of hydrocele HTN (hypertension) Hyperlipidemia Left tennis elbow Nocturia Nocturnal hypoxemia Normally functioning cardiac pacemaker present SHALONDA (obstructive sleep apnea) PAF (paroxysmal atrial fibrillation) Peripheral edema Prostate cancer Varicose veins of bilateral lower extremities with other complications Surgical History History of hydrocelectomy History of phacoemulsification of cataract of both eyes with intraocular lens implantation Hx of cardiac pacemaker Hx of colonoscopy Hx of cystoscopy Hx of parathyroidectomy Hx of subdural hematoma Hx of varicose vein stripping Family History Father Cancer Prostate cancer Mother Cancer, Onset Age: 85 Son No problems noted. Daughter No problems noted. Maternal Grandfather No problems noted. Maternal Grandmother No problems noted. Paternal Grandfather No problems noted. Paternal Grandmother No problems noted. Social History Housing: House Alcohol intake: current Alcohol intake frequency: holidays/special occasions only Alcohol type: wine Patient Tobacco Use Status: Never used Tobacco e-Cigarette/Vaping Use: Never Used Current occupational status: retired Cognitive needs: No Hearing needs: No Vision needs: Yes Review of Systems Const Denies chills and Denies fever(s) Card Reports no additional complaints and Denies syncope Resp Denies cough GI Denies abdominal pain and Denies heartburn Reports as per HPI and Denies change in libido Neuro Denies syncope Psych Denies change in libido Endo Denies change in libido Physical Exam Const General: cooperative, healthy appearing, comfortable and no acute distress Orientation/consciousness: patient oriented x3 HEENT Face and sinus: Yes normal facial exam Mouth: moist mucous membranes Neck Neck: Yes normal visual inspection, Yes full ROM and Yes trachea midline Chest Chest palpation & inspection: normal inspection of the chest Resp Effort & Inspection: normal respiratory effort, able to speak in complete sentences and no respiratory distress GI Inspection: Yes normal to inspection Rectal Exam - Male: Yes normal sphincter tone and Yes prostate normal Male General Exam: Yes normal external exam Penis: normal penis and circumcised Meatus: meatus normal Scrotum: scrotum normal Testes: Testes normal Back/Spine/Pelvis Cervical Spine: normal cervical lordosis Thoracic/Lumbar Spine: thoracic and lumbar spine normal to inspection Skin General skin exam: no rashes or lesions noted Neuro General: patient oriented x3, gait normal, tone normal and moves all extremities Extrem General: Yes normal to inspection and Yes capillary refill normal Assessment & Plan Assessment & Plan (1) Scrotal edema: Code(s): N50.89 - Other specified disorders of the male genital organs Plan No intervention needed Patient Instructions: Imaging studies, laboratory and physical exam results were discussed and reviewed in detail. No major barriers to patient understanding were identified. An opportunity to ask questions regarding the treatment plan was provided. All questions were answered. The patient expressed understanding and agreement with the above treatment plan. The patient is aware they should contact our office by phone for worsening of their current condition or the appearance of new urologic symptoms. Compliance is encouraged with any medications and followup testing that is ordered. It is a privilege to participate in the urologic care of your patient. If you have any questions or concerns regarding treatment for the above conditions, or other urologic issues, please do not hesitate to contact me. The office telephone contact is [phone]. This note is constructed using voice recognition software. While every effort has been made to ensure accuracy bruise trimmer errors may have been included. Yours sincerely, Dr Kalia Tavera MD, [facility] - Urology Providers of Expert, Compassionate Care for the Genitourinary System Coding Level of Care Code Est Pt Level 3 (25787) Diagnoses Scrotal edema N50.89
== END 2022-04-12 16:16 | disposition home or self-care (01) ==
LOC: HO.HUSH 15:29
PROVIDERS: PCP Internal Medicine; Visit Provider Urology
DX: N50.89 Other specified disorders of the male genital organs (principal)
CPT/HCPCS: 99213

== ENCOUNTER → 2022-04-12 15:29 | Outpatient (BNVA) | payer MEDICARE, OTHER, SELFPAY | PROVIDERS: PCP Internal Medicine; Visit Provider Urology | DX: N50.89 Other specified disorders of the male genital organs (principal) | CPT/HCPCS: 99212 ==

== ENCOUNTER 2022-04-20 12:41 | Outpatient (REF) | payer MEDICARE, OTHER, SELFPAY ==
--- NOTE | ~2022-04-20 | US_ITS ---
EXAMINATION: US ABDOMEN LIMITED CLINICAL INFORMATION: Question of ascites. COMPARISON: CT abdomen pelvis 01/18/2012 TECHNIQUE: Real-time imaging of the right upper quadrant abdominal viscera. FINDINGS: All 4 quadrants were examined and no ascites is seen. US/US abdomen limited IMPRESSION: No ascites is seen.
== END 2022-04-20 12:42 | disposition home or self-care (01) ==
LOC: HO.US 12:41
PROVIDERS: PCP Internal Medicine; Visit Provider Internal Medicine
DX: N50.89 Other specified disorders of the male genital organs (principal)
CPT/HCPCS: 76705

== ENCOUNTER → 2022-04-24 11:20 | Outpatient (BNVA) | payer MEDICARE, OTHER, SELFPAY | PROVIDERS: PCP Internal Medicine; Visit Provider Internal Medicine | DX: I48.92 Unspecified atrial flutter (principal); Z79.01 Long term (current) use of anticoagulants; Z51.81 Encounter for therapeutic drug level monitoring | CPT/HCPCS: 85610; 99211 ==

== ENCOUNTER 2022-04-27 09:47 | Outpatient (REF) | payer MEDICARE, OTHER, SELFPAY ==
[2022-04-27 12:12] LABS: Alanine Aminotransferase 24 U/L (0-40); Alkaline Phosphatase 102 U/L (39-117); Anion Gap 13 (12-20); Aspartate Amino Transferase 27 U/L (5-37); Bilirubin Total 1.3 mg/dL (0.0-1.0); Blood Urea Nitrogen 38 mg/dL (9-16); Calcium 8.9 mg/dL (8.4-10.2); Carbon Dioxide 28 mmol/L (22-29); Chloride 105 mmol/L (96-108); Estimated Glomerular Filt Rate 56; Glucose Random 95 mg/dL (60-115); Potassium 4.2 mmol/L (3.3-5.1); Sodium 142 mmol/L (135-145); Total Protein 7.1 g/dL (6.5-8.0)
[2022-04-27 12:16] LABS: HBS Num1 1.66 mIU/mL (0-7.99); HBc Num1 0.09 S/CO (0.00-0.79); HBsAGNum1 0.22 S/CO (0.00-0.99); Hepatitis B Core Antibody Nonreactive (Nonreactive); Hepatitis B Surface Antigen Negative (Negative); ~HepC Num1 0.11 S/CO (0.00-0.79); ~Hepatitis B Surface Antibody NONREACTIVE (Nonreactive); ~Hepatitis C Antibody Nonreactive (Nonreactive)
[2022-04-27 12:17] LABS: B Type Natriuretic Peptide 277 pg/mL (<100)
[2022-04-28 13:15] LABS: Hepatitis A Antibody IgM 0.17 Index (0-0.79); ~Hepatitis A Antibody IgM Nonreactive (Nonreactive)
[2022-05-01 15:46] LABS: Alpha Fetoprotein 2.2 ng/mL (<6.1)
== END 2022-04-27 09:48 | disposition home or self-care (01) ==
LOC: HO.HMGCLDS 09:47
PROVIDERS: PCP Internal Medicine; Visit Provider Internal Medicine
DX: N50.89 Other specified disorders of the male genital organs (principal); R18.8 Other ascites
CPT/HCPCS: 36415; 80053; 82105; 83880; 86704; 86706; 86709; 86803; 87340

== ENCOUNTER → 2022-05-17 11:02 | Outpatient (BNVA) | payer MEDICARE, OTHER, SELFPAY | PROVIDERS: PCP Internal Medicine; Visit Provider Urology | DX: C67.9 Malignant neoplasm of bladder, unspecified (principal); N50.89 Other specified disorders of the male genital organs | CPT/HCPCS: 51798; 99212 ==

== ENCOUNTER 2022-05-18 09:06 | Outpatient (REF) | payer MEDICARE, OTHER, SELFPAY | END 2022-05-18 09:07 | disposition home or self-care (01) | LOC: HO.SH 09:06 | PROVIDERS: Visit Provider Internal Medicine | DX: Z01.118 Encounter for examination of ears and hearing with other abnormal findings (principal); H90.3 Sensorineural hearing loss, bilateral | CPT/HCPCS: 92557 ==

== ENCOUNTER → 2022-05-22 11:06 | Outpatient (BNVA) | payer MEDICARE, OTHER, SELFPAY | PROVIDERS: PCP Internal Medicine; Visit Provider Internal Medicine | DX: I48.92 Unspecified atrial flutter (principal); Z79.01 Long term (current) use of anticoagulants; Z51.81 Encounter for therapeutic drug level monitoring | CPT/HCPCS: 85610; 99211 ==

== ENCOUNTER 2022-05-30 13:39 | Outpatient (REF) | payer SELFPAY ==
--- NOTE | 2022-05-30 14:20 | MHC.AU.HAS ---
Hearing Aid Evaluation Date of Visit: 05/30/22 Wash Test Checker Used: Historical Information: Description of Hearing: Audiogram dated 05/18/22 reveals normal hearing 250-1000Hz sloping to a mild to moderately-severe sensorineural hearing loss 1500-8000Hz in both ears. SRT is in agreement. WRS is good in the left ear and is excellent in the right ear. Summary: We discussed different hearing aid manufacturers and hearing aids styles. The patient decided to proceed with a pair of Oticon More 2 miniRITE-T 312 hearing aids in the color silver. / receivers. Double de la rosa domes. He has an iPhone but does not want to pair his hearing aids to his phone at the initial fitting. Quoted $3803 due at the hearing aid fitting. The patient has a $1700 reimbursable benefit (confirmed by Bianca). This was explained to the patient. He will call his insurance to confirm this. Paid nonrefundable $350 dispensing fee today. Patient will be contacted to schedule the fitting once the hearing aids arrive at our clinic. Hearing Aid Prescription: Based on the individual?s shared listening needs, communication environments, dexterity, desire for connectivity, and personal preferences, the following prescription for amplification has been made: Right ear: Peer Tutor: Oticon Model: More 2 miniRITE-T Battery Size: 312 Color: Silver Television Anchor: 2/85 Type of Dome: Double de la rosa Left ear: Left ear prescription to be same as Right Hearing Aid above: Peer Tutor: Oticon Model: More 2 miniRITE-T Battery Size: 312 Color: Silver Television Anchor: 2/85 Type of Dome: Double de la rosa Plan of Care: Patient wishes to purchase hearing aids as prescribed Primary Diagnosis: H90.3 Bilateral Sensorineural Hearing Loss Signature: Provider: Morgan Rothman, CCC-A
== END 2022-05-30 13:40 | disposition home or self-care (01) ==
LOC: HO.HAP 13:39
PROVIDERS: Visit Provider Internal Medicine
DX: Z46.1 Encounter for fitting and adjustment of hearing aid (principal); H90.3 Sensorineural hearing loss, bilateral
CPT/HCPCS: 92590

== ENCOUNTER → 2022-06-09 13:57 | Outpatient (BNVA) | payer MEDICARE, OTHER, SELFPAY | PROVIDERS: PCP Internal Medicine; Visit Provider Physician Assistant | DX: R60.0 Localized edema (principal) | CPT/HCPCS: 99212 ==

== ENCOUNTER 2022-06-13 13:49 | Outpatient (REF) | payer SELFPAY ==
--- NOTE | 2022-06-13 12:57 | MHC.AU.NPS ---
PURCHASE AND SALE AGREEMENT Date of Fitting: End of Adjustment Period:30 days from fitting date Intake Nurse: [facility] 3 YR Service Agreement? Opt In: expires? Following the expiration of [facility]?s service agreement, charges for items and services are billed at the usual and customary rate. Payment is due at the time of service. ? (Initialed) X Opt out: I understand by opting out of the service agreement I will be charged for any and all hearing aid related services obtained after the adjustment period.? (Initialed) Total Due at Fitting $?3803.00? Includes any opted in hearing aid service agreement, earmolds and accessories Right Ear: Left Ear: Make, Model, Serial Number and Color: Oticon More 2 miniRITE-T Serial #[id number] Silver Make, Model, Serial Number and Color: Oticon More 2 miniRITE-T Serial #[id number] Silver Manager Telemetry/Slim Tube: 2 Manager Telemetry/Slim Tube: 2/85 Earmold/Dome/CShell/SlimTip: Double de la rosa Earmold/Dome/CShell/SlimTip: Double de la rosa Type of Wax Guard: ProWax mini fit Type of Wax Guard: ProWax mini fit Battery Size: 312 Battery Size: 312 Needle Loom Operator Helper Repair Warranty: 07/02/2025 Needle Loom Operator Helper Repair Warranty: 07/02/2025 Needle Loom Operator Helper Loss and Damage Warranty: 07/02/2025 Needle Loom Operator Helper Loss and Damage Warranty: 07/02/2025 [facility] Service Plan: [facility] Service Plan: Accessories/Assistive Technology: The following items that may be supplied at initial fitting are not included in any warranty or service package: ? Hearing aid batteries ($5), Wax Guard packages ($10) Per [place] regulations, during the 30-day adjustment period, the pc analyst shall be able to cancel the purchase with a limited money back guarantee.? When a pc analyst returns the hearing aid within the adjustment period, the seller shall be entitled to retain the charges for earmolds, services provided to fit the hearing aid; and any repair, remake or adjustment performed that is not contained within any other warranty of sale or service, not to exceed 20% of the purchase garcia. ? [facility]?s non-refundable portion of the process, not including earmolds, is the previously paid hearing aid evaluation and selection fee of $350. ? Hearing aids that are lost or damaged beyond repair cannot be returned for credit, and the pc analyst is liable for the full purchase garcia. My signature below acknowledges that I have read and understand this hearing aid contract and have received the goods and services out lined above. ?Date? Home Address: ? This hearing aid will not restore normal hearing nor will it prevent further hearing loss. The sale of a hearing aid is restricted to those individuals who have obtained a medical evaluation from a licensed physician or tin can laborer. A fully informed adult whose hindu or personal beliefs preclude consultation with a physician may waive the requirement of a medical evaluation. The exercise of such a waiver is not in your best health interest and its use is strongly discouraged. It is also required that a person under the age of eighteen years obtain an evaluation by an parts designer in addition to the medical evaluation before a hearing aid can be sold to such person. Otilia Kruse,Title XV,Chapter 93:74 ?Base cost of hearing aid(s) includes the following one-time services during adjustment period: ? Pre-fitting programming ? Electroacoustic check ? Conformity Evaluation ? Hearing aid dispensing ? One adjustment period visit after fitting ? Instruction on use of devices ? Custom modifications to settings, fit ? As needed: Starter battery packs, wax guards, cleaning tools, case ? Pairing devices as needed
--- NOTE | 2022-06-13 15:58 | MHC.AU.HFA ---
Hearing Instrument Fitting- Adult- Binaural Date of Visit: 06/13/22 Hearing Instruments Dispensed: Right Ear: Oticon More 2 miniRITE-T Serial #[id number] Silver Repair Warranty: 07/02/2025 Loss and Damage Warranty: 07/02/2025 Service Plan: opted out Battery Size: 312 Diet Counselor: Type of Dome: 8mm Double de la rosa Type of Wax Guard: ProWax mini fit Left Ear: Oticon More 2 miniRITE-T Serial #[id number] Silver Repair Warranty: 07/02/2025 Loss and Damage Warranty: 07/02/2025 Service Plan: opted out Battery Size: 312 Diet Counselor: 2 Type of Dome: 8mm Double de la rosa Type of Wax Guard: ProWax mini fit Summary of Fitting: The patient is here today for a hearing aid fitting. The hearing aids were programmed to the patient's audiogram on adaptation level 3 with volume control and push buttons disabled. Real ear measurements reveals the hearing aids are functioning and meeting targets appropriately. The patient reported a comfortable sound percept and fit bilaterally. He was able to manipulate, insert and remove the hearing aids after some practice. We reviewed batteries and hearing aid care/cleaning. The importance of consistent, daily use was emphasized. We will evaluate retention and discuss need for any programming changes at the follow-up in 2-3 weeks. The patient prefers not to pair his hearing aids to his iPhone at the moment. He paid $3,803 today. He will submit paperwork to his insurance for a $1,700 reimbursement. A copy of the signed purchase agreement was given. Medical clearance waiver was signed. Diagnosis Code(s): Primary Diagnosis: H90.3 Bilateral Sensorineural Hearing Loss Signature: Provider: Morgan Rothman, [facility]
== END 2022-06-13 13:50 | disposition home or self-care (01) ==
LOC: HO.HAP 13:49
PROVIDERS: Visit Provider Internal Medicine
DX: Z46.1 Encounter for fitting and adjustment of hearing aid (principal)
CPT/HCPCS: V5261

== ENCOUNTER → 2022-06-22 11:10 | Outpatient (BNVA) | payer MEDICARE, OTHER, SELFPAY | PROVIDERS: PCP Internal Medicine; Visit Provider Internal Medicine | DX: I48.92 Unspecified atrial flutter (principal); Z79.01 Long term (current) use of anticoagulants; Z51.81 Encounter for therapeutic drug level monitoring | CPT/HCPCS: 85610; 99211 ==

== ENCOUNTER 2022-06-27 13:32 | Outpatient (REF) | payer OTHER, MEDICARE, SELFPAY ==
--- NOTE | 2022-06-27 13:56 | MHC.AU.HFU ---
Hearing Instrument Follow-Up- Binaural Date of Visit: 06/27/22 Right Ear: Oticon More 2 miniRITE-T Serial #[id number] Silver Repair Warranty: 07/02/2025 Loss and Damage Warranty: 07/02/2025 Service Plan: opted out Battery Size: 312 Wood Heel Back Liner: Type of Dome: 8mm Double de la rosa Type of Wax Guard: ProWax mini fit Dispensed By: [facility] Date of Fittin06/13/2022 Left Ear: Oticon More 2 miniRITE-T Serial #[id number] Silver Repair Warranty: 07/02/2025 Loss and Damage Warranty: 07/02/2025 Service Plan: opted out Battery Size: 312 Wood Heel Back Liner: Type of Dome: 8mm Double de la rosa Type of Wax Guard: ProWax mini fit Dispensed By: [facility] Date of Fittin06/13/2022 Follow-Up Summary: Jung Funes is here for a hearing aid check following his fitting. He reports improved hearing in all listening environments. 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 Jung reports no issues with fit or retention. He has been able to change batteries with no issues. We reviewed cleaning and general hearing aid care. He does not wish to have any programming changes made today. He does not want volume control and does not want his hearing aids paired to his iPhone. Reviewed charges as he opted out of the service plan. Recommended annual audiogram with hearing aid check, explained our protocol for scheduling that. Additional follow-up as needed. Diagnosis Code(s): Primary Diagnosis: H90.3 Bilateral Sensorineural Hearing Loss Signature: Provider: Karo Jacome, Morgan, CCC-A
== END 2022-06-27 13:33 | disposition home or self-care (01) ==
LOC: HO.HAP 13:32
PROVIDERS: Visit Provider Internal Medicine
DX: Z13.89 Encounter for screening for other disorder (principal)

== ENCOUNTER → 2022-08-08 10:11 | Outpatient (BNVA) | payer MEDICARE, OTHER, SELFPAY | PROVIDERS: PCP Internal Medicine; Visit Provider Surgery Vascular Surgery | DX: I48.92 Unspecified atrial flutter (principal); Z79.01 Long term (current) use of anticoagulants; Z51.81 Encounter for therapeutic drug level monitoring; I83.11 Varicose veins of right lower extremity with inflammation; R10.9 Unspecified abdominal pain | CPT/HCPCS: 85610; 99211; 99212 ==

== ENCOUNTER → 2022-08-10 12:52 | Outpatient (REF) | payer MEDICARE, OTHER, SELFPAY ==
--- NOTE | 2022-08-10 12:56 | CA_ITS ---
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 Normal LV systolic function with suggestion of elevated LVEDP 2. Moderately dilated right-sided chambers with mildly reduced RV systolic function 3. Mildly dilated left atrium 4. Mild aortic and mitral regurgitation 5. Moderately elevated retic a systolic pressure with significant elevated right atrial pressures 6. Mildly dilated ascending aorta at 4.3 cm 7. No gross pericardial effusion Findings Left Ventricle Normal left ventricular size, thickness, and systolic function. The visually estimated ejection fraction is between 60-65%. Elevated left ventricular end diastolic pressure. Peak GLS is -13.9%, which is reduced. Right Ventricle Moderately increased right ventricular cavity size. There is mildly decreased right ventricular systolic function. There is a pacemaker wire seen in the right ventricle. Atria The left atrium is mildly dilated. There is no evidence of interatrial shunt. The right atrium is moderately dilated. A pacemaker wire is identified in the right atrium. Aortic Valve There is mild calcification of the aortic valve. There is no aortic valve stenosis. There is mild aortic valve regurgitation. Mitral Valve Likely normal mitral valve structure and function. There is mild mitral annular calcification. There is mild mitral valve regurgitation. There is no mitral valve stenosis. Pulmonic Valve The pulmonic valve is likely normal. There is mild pulmonic valve regurgitation. Tricuspid Valve Normal tricuspid valve structure. There is moderate tricuspid valve regurgitation. Significantly elevated right atrial pressure. Moderate pulmonary hypertension is present. Great Vessels There is mild dilatation of the ascending aorta measuring 4.30 cm. Venous The inferior vena cava is moderately dilated and does not collapse with inspiration. Pericardium/Pleural There is no evidence of pericardial effusion. Prior Study Comparison Changes noted compared to prior study dated: 07/28/2021. Right-sided chambers are dilated with moderately elevated right ventricular systolic pressure of significantly elevated right atrial pressures Measurements 2D Linear Measurements IVSd: 1.07 0.6-0.9/0.6-1.0 cm LVIDd: 4.81 3.9-5.3/4.2-5.9 cm LVIDd Index: 2.36 2.4-3.2/2.2-3.1 cm/m2 LVIDs: 3.32 2.0-3.6 cm LVPWd: 1.01 0.7-1.1 cm LA Diam: 4.30 2.7-3.8/3.0-4.0 cm LAIDs Index: 2.11 1.5-2.3 cm/m2 LV Mass: 224.43 67-162/88-224 g LV Mass Index: 110.01 43-95/49-115 g/m2 LVOT Diam: 2.30 3.0+(-)1.3 cm 2D Systolic Function EF 4C: 64.70 >55% EF 2C: 64.70 >55% EF BiP: 64.10 >55% Mitral Valve MV Pk E: 0.84 MV Decel Time: 221.00 E'Lateral: 5.77 E'Medial: 5.33 E/E' Med: 15.80 E/E' Lat: 14.60 PHT: 65.00 MVA PHT: 3.38 Decel Broome: 3.79 Aortic Valve AoV Pk Luisito: 1.31 AoV Mn Luisito: 0.91 AoV VTI: 0.26 AoV Pk Grad: 7.00 Aov Mn Grad: 4.00 CODY Cont.VTI: 3.38 LVOT LVOT Pk Luisito: 0.99 LVOT Mn Luisito: 0.62 LVOT VTI: 0.22 LVOT Pk Grad: 4.00 LVOT Mn Grad: 2.00 LVOT Diam: 2.30 LVOT Area: 4.15 Diastolic Function MV Pk E: 0.84 E'Medial: 5.33 E/E' Med: 15.80 E' Laterial: 5.77 E/E' Lat: 14.60 Right Ventricle TAPSE (mm): 16.10 TVS' Luisito: 10.80 Tricuspid Valve TR Pk Luisito: 3.14 TR Pk Grad: 39.00 RA Press: 15.00 RVSP: 54.00 Great Vessels Aorta Sinus of Valsalva: 4.15 2.0-3.5 cm Ao Asc: 4.30 2.1-3.4 cm Updated in Other Vendor System with Status of Final Bryce Yu MD electronically signed on 08/11/2022 1:51:02 PM with status of Final
== END ==
LOC: HO.CARD 12:52
PROVIDERS: PCP Internal Medicine; Visit Provider Internal Medicine
DX: I77.810 Thoracic aortic ectasia (principal)
CPT/HCPCS: 93306; 93356

== ENCOUNTER 2022-08-11 10:42 | Outpatient (REF) | payer SELFPAY ==
--- NOTE | 2022-08-11 11:09 | MHC.AU.HFU ---
Hearing Instrument Follow-Up- Binaural Date of Visit: 08/11/22 Right Ear:Charger Tester: Oticon More 2 miniRITE-T Serial #[id number] Silver Repair Warranty: 07/02/2025 Loss and Damage Warranty: 07/02/2025 Service Plan: opted out Battery Size: 312 Rig Superintendent: Type of Dome: 8mm Double de la rosa Type of Wax Guard: ProWax mini fit Dispensed By: [facility] Date of Fittin06/13/2022 Left Ear:Charger Tester: Oticon More 2 miniRITE-T Serial #[id number] Silver Repair Warranty: 07/02/2025 Loss and Damage Warranty: 07/02/2025 Service Plan: opted out Battery Size: 312 Rig Superintendent: Type of Dome: 8mm Double de la rosa Type of Wax Guard: ProWax mini fit Dispensed By: [facility] Date of Fittin06/13/2022 Follow-Up Summary: Hearing Aid Problem - Shortly after last visit, patient went on vacation and the right aid stopped working. A new battery did not help. He is back from vacation. Listening check confirmed the right aid is not working. Changed wax guard (old one had debris on the under part of the guard) with aid now working. Showed patient how to change and practiced wax guard and dome change. Did not charge for today's visit, but patient knows from this appointment on he will be responsible for all services performed in the office. Recommendations: Hearing instrument follow-up or maintenance as needed.Please contact our clinic with any questions or concerns. Diagnosis Code(s):Primary Diagnosis: H90.3 Bilateral Sensorineural Hearing Loss Signature:Provider: Johnie Lopez, [facility]
== END 2022-08-11 10:43 | disposition home or self-care (01) ==
LOC: HO.HAP 10:42
PROVIDERS: Visit Provider Internal Medicine
DX: Z13.89 Encounter for screening for other disorder (principal)

== ENCOUNTER 2022-08-11 14:18 | Outpatient (REF) | payer MEDICARE, OTHER, SELFPAY ==
[2022-08-11 14:51] LABS: MANUAL DIFF FLAG NO
[2022-08-11 15:49] LABS: Basophils Absolute Auto 0.1 X10*3/uL (0.0-0.2); Basophils Percent Auto 0.9 % (0-2); Eosinophils Absolute Auto 0.2 X10*3/uL (0.0-0.4); Eosinophils Percent Auto 2.6 % (0-4); Hematocrit 39.5 % (42.0-52.0); Hemoglobin 12.5 g/dl (14.0-18.0); Imm Gran Abs Auto 0.02 X10*3/uL (0.00-0.03); Imm Gran Pct Auto 0.3 % (0.0-0.4); Lymphocytes Absolute Auto 1.2 X10*3/uL (1.2-4.9); Lymphocytes Percent Auto 20.4 % (20-40); Mean Corpuscular HGB Conc 31.6 g/dl (31.0-36.0); Mean Corpuscular Hemoglobin 28.9 pg (27.0-33.0); Mean Corpuscular Volume 91.4 fL (80.0-98.0); Mean Platelet Volume 11.6 fL (9.4-12.4); Monocytes Absolute Auto 0.8 X10*3/uL (0.1-1.2); Monocytes Percent Auto 13.7 % (2-11); Neutrophils Absolute Auto 3.6 x10*3/uL (2.0-8.3); Neutrophils Percent Auto 62.1 % (45-73); Platelet Count 124 X10*3/uL (160-400); Red Blood Count 4.32 X10*6/uL (4.60-5.80); White Blood Count 5.8 X10*3/uL (4.8-10.8)
[2022-08-11 16:06] LABS: B Type Natriuretic Peptide 325 pg/mL (<100)
[2022-08-11 16:13] LABS: Alanine Aminotransferase 23 U/L (0-40); Albumin Level 3.7 g/dL (3.5-5.0); Alkaline Phosphatase 115 U/L (39-117); Anion Gap 11 (12-20); Aspartate Amino Transferase 26 U/L (5-37); Bilirubin Total 1.8 mg/dL (0.0-1.0); Blood Urea Nitrogen 40 mg/dL (9-16); Calcium 9.4 mg/dL (8.4-10.2); Carbon Dioxide 31 mmol/L (22-29); Chloride 104 mmol/L (96-108); Estimated Glomerular Filt Rate > 60; Glucose Random 102 mg/dL (60-115); Potassium 4.3 mmol/L (3.3-5.1); Sodium 142 mmol/L (135-145); Total Protein 6.7 g/dL (6.5-8.0)
[2022-08-11 16:25] LABS: Prostate Specific Antigen < 0.10 ng/mL (<0.05-4.0)
[2022-08-14 16:34] LABS: IgA 156 mg/dL (70-320); IgG 1658 mg/dL (600-1540); IgM 103 mg/dL (50-300)
[2022-08-14 22:58] LABS: PES - Abn Protein Band 1 0.4 g/dL (NONE DETECTED); Prot Elec - Albumin 3.6 g/dL (3.8-4.8); Prot Elec - Alpha1 0.3 g/dL (0.2-0.3); Prot Elec - Alpha2 0.6 g/dL (0.5-0.9); Prot Elec - Beta 1 0.4 g/dL (0.4-0.6); Prot Elec - Beta 2 0.3 g/dL (0.2-0.5); Prot Elec - Gamma 1.3 g/dL (0.8-1.7); Prot Elec - Total Protein 6.4 g/dL (6.1-8.1)
[2022-08-15 13:23] LABS: Kappa Light Chain, Free Serum 58.4 mg/L (3.3-19.4); Kappa/Lambda Lt Ch Free Ratio 1.84 (0.26-1.65); Lambda Light Chain, Free Serum 31.8 mg/L (5.7-26.3)
[2022-08-18 16:23] LABS: Kappa, Serum 301 mg/dL (176-443); Kappa/Lambda Ratio, Serum 1.38 (1.29-2.55); Lambda, Serum 218 mg/dL (91-240)
== END 2022-08-11 14:19 | disposition home or self-care (01) ==
LOC: HO.LAB 14:18
PROVIDERS: PCP Internal Medicine; Visit Provider Internal Medicine Medical Oncology
DX: Z12.5 Encounter for screening for malignant neoplasm of prostate (principal); N40.0 Benign prostatic hyperplasia without lower urinary tract symptoms; D47.2 Monoclonal gammopathy; C67.9 Malignant neoplasm of bladder, unspecified; C61 Malignant neoplasm of prostate
CPT/HCPCS: 36415; 80053; 82784; 83521; 83880; 83883; 84153; 84165; 85025; 86334

== ENCOUNTER 2022-08-24 08:06 | Outpatient (REF) | payer MEDICARE, OTHER, SELFPAY ==
--- NOTE | ~2022-08-24 | CT_ITS ---
EXAMINATION: CT ABDOMEN AND PELVIS WITHOUT CONTRAST CLINICAL INFORMATION: Abdominal pain. COMPARISON: CT abdomen pelvis 01/18/2012. TECHNIQUE: Multidetector volumetric imaging was performed from the superior aspect of the liver through the pubic symphysis. Sagittal and coronal reformatted images were obtained on the technologist's workstation. This CT examination was performed using dose optimization techniques as appropriate, variously including the following: *Automated exposure control *Adjustment of mA and/or kV according to patient size (this includes techniques or standardized protocols for targeted exams where dose is matched to indication/reason for exam; i.e. extremities or head) *Use of iterative reconstruction technique DLP: 635 mGy-cm FINDINGS: LUNG BASES: Minimal platelike atelectasis in the left lung base. LIVER, GALLBLADDER, AND BILIARY TREE: The liver is normal size, shape with lobulated contour and normal attenuation. No focal lesion or intrahepatic ductal dilatation seen. The gallbladder is unremarkable with no evidence of radiopaque gallstones, gallbladder wall thickening, or obvious pericholecystic inflammatory changes. PANCREAS: Unremarkable. SPLEEN: The spleen is unremarkable. There is a small accessory splenule along the medial inferior tip of the spleen. ADRENAL GLANDS: Unremarkable. KIDNEYS AND URETERS: The kidneys are normal in size, shape, and attenuation. No hydronephrosis, hydroureter, or calculi seen. No perinephric stranding. There is a moderate size simple exophytic cyst upper pole right kidney measuring 4.6 x 4.5 x 4.7 cm. BLADDER: Unremarkable. GASTROINTESTINAL TRACT: There is diffuse diverticuli, oral contrast and stool without distention. There is no evidence of diverticulitis or bowel obstruction. The small bowel loops are normal caliber. Appendix is normal caliber. No inflammatory process seen in the abdomen. ABDOMINAL WALL: No significant hernia is appreciated. LYMPH NODES: Normal. VASCULAR: The abdominal aorta is normal caliber. 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 The intrahepatic IVC is prominent. IVC entering the right atrium is of normal caliber. The right atrium is normal size. The IVC is dilated extending into bilateral common iliac veins and hence varicose veins. Etiology for a dilated supra renal IVC needs to be excluded. Differential diagnosis includes ectasia, clot or stricture higher up. PELVIC VISCERA: There are radiation seeds in the prostate gland with a normal size prostate gland. No free fluid seen. Prominent inguinal canals containing fat is noted. There is small lipoma of left iliacus and left gluteus minimus muscles. OSSEOUS STRUCTURES: No aggressive lytic or sclerotic process seen. There is degenerative disc changes and vacuum disc phenomena throughout lumbar spine. 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 Differential diagnosis includes ectasia, stricture or thrombus. Recommend CT IVC study or routine venogram under fluoroscopy. 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 Diffuse colonic diverticulosis without diverticulitis. Mild constipation. Simple exophytic cyst upper pole right kidney. Fleischner guidelines were followed.
[2022-08-24] MEDS: Barium Sulfate Oral (Vanilla) 450 ML ORAL.SUSP PO (10:36)
[2022-08-24] MEDS: Barium Sulfate Oral (Mocha) 450 ML ORAL.SUSP PO (10:36)
== END 2022-08-24 08:07 | disposition home or self-care (01) ==
LOC: HO.CT 08:06
PROVIDERS: PCP Internal Medicine; Visit Provider Surgery Vascular Surgery
DX: R10.9 Unspecified abdominal pain (principal)
CPT/HCPCS: 74176

== ENCOUNTER 2022-08-25 10:38 | Outpatient (REF) | payer MEDICARE, OTHER, SELFPAY ==
--- NOTE | ~2022-08-25 | US_ITS ---
EXAMINATION: US LOWER EXTREMITY VENOUS (REFLUX EXAM), BILATERAL CLINICAL INDICATION: Chronic venous insufficiency with lower extremity varicose veins. Status post prior venous evaluation of the bilateral great saphenous veins. History of recurrent varicose veins with pain COMPARISON: 01/22/2020 and 01/09/2022 TECHNIQUE: Color flow triplex imaging and compression Doppler was performed to evaluate both the deep and the superficial systems bilaterally. To evaluate the superficial system, the examination was performed in the upright position. Color-flow Doppler ultrasound and compression ultrasound were utilized. In addition, maneuvers were utilized to demonstrate reflux. FINDINGS: 1. DEEP VENOUS ULTRASOUND OF THE RIGHT LOWER EXTREMITY: Common Femoral Vein: Compressible, normal respiratory variation and augmented flow. Femoral Vein: Compressible, normal color flow and augmentation. Popliteal Vein: Compressible, normal augmentation. Deep Reflux: There is deep venous reflux in the popliteal vein and superficial femoral vein measuring 2400 ms in each. There is no evidence of a Linares's cyst. 2. SUPERFICIAL ULTRASOUND WITH DOPPLER OF RIGHT LOWER EXTREMITY: GREAT SAPHENOUS VEIN: Saphenofemoral Junction: 1.1 cm; Reflux: 2604 ms Proximal Thigh: 0.8 cm; Reflux: 2032 ms Mid Thigh: Not visualized Above Knee: Not visualized At Knee: Possible remnant measuring 0.3 cm; Reflux: 3008 ms Below Knee: Possible remnant measuring 0.3 cm; Reflux: 2856 ms Mid Calf: Possible remnant measuring 0.5 cm; Reflux: 2660 ms Ankle: 0.5 cm; Reflux: 2268 ms DUPLICATED MEDIAL GREAT SAPHENOUS VEIN: Diameter: None Imaged Reflux: NA DUPLICATED LATERAL GREAT SAPHENOUS VEIN: Diameter: 0.3 cm Reflux: None SMALL SAPHENOUS VEIN: Proximal: 0.3 cm; Reflux: 0 ms Distal: 0.3 cm; Reflux: 0 ms VEIN OF GIACOMINI: None Imaged. PERFORATORS: Location: None Imaged Size: NA Reflux: NA VARICOSITIES: Location: Large varicose vein arising from of the residual great saphenous vein in the proximal thigh. Varicosities extending to the thigh and into the calf Size: 1.9 cm in the proximal thigh, 1.0 cm at the knee and 0.5 cm within the calf Reflux: Ranging from 640 ms to 3168 ms 3. DEEP VENOUS ULTRASOUND OF THE LEFT LOWER EXTREMITY: Common Femoral Vein: Compressible, normal respiratory variation and augmented flow. Femoral Vein: Compressible, normal color flow and augmentation. Popliteal Vein: Compressible, normal augmentation. Deep Reflux: Deep venous reflux is seen in the common femoral vein, superficial femoral vein and popliteal vein with reflux ranging from 1208 ms to 2488 ms There is no evidence of a Linares's cyst. 4. SUPERFICIAL ULTRASOUND WITH DOPPLER OF LEFT LOWER EXTREMITY: GREAT SAPHENOUS VEIN: Saphenofemoral Junction: 0.8 cm; Reflux: 0 ms Proximal Thigh: 0.8 cm; Reflux: 2160 ms Mid Thigh: Not visualized Above Knee: Not visualized At Knee: Not visualized Below Knee: Questionable remnant measuring 0.3 cm; Reflux: 0 ms Mid Calf: Questionable remnant measuring 0.3 cm; Reflux: 0 ms Ankle: Questionable remnant measuring 0.3 cm; Reflux: 2576 ms DUPLICATED MEDIAL GREAT SAPHENOUS VEIN: Diameter: None Imaged Reflux: NA DUPLICATED LATERAL GREAT SAPHENOUS VEIN: Diameter: 0.4 cm Reflux: None SMALL SAPHENOUS VEIN: Proximal: 0.4 cm; Reflux: 0 ms Distal: 0.4 cm; Reflux: 0 ms VEIN OF GIACOMINI: None Imaged. PERFORATORS: Location: None Imaged Size: NA Reflux: NA VARICOSITIES: Location: Distal thigh, knee and proximal calf Size: Ranging from 0.3 to 0.7 cm Reflux: Ranging from 2696 ms to 2840 ms US/US venous duplex LE BI IMPRESSION: Right: Great saphenous vein within the mid and distal thigh is not visualized consistent with prior ablation. Residual great saphenous vein in the at the saphenofemoral junction and proximal most thigh gives rise to a very large extensive varicose veins extending throughout the thigh and into the calf as described above. Questionable remnant great saphenous vein reverses varicosities seen in the calf. Severe deep venous reflux is seen within the right lower extremity Left: Great saphenous vein within the mid and distal thigh to the knee is not visualized consistent with prior ablation. Small residual great saphenous vein in the proximal thigh demonstrates reflux. Varicose veins seen in the distal thigh, knee and proximal calf reconstituted flow in the great saphenous vein in the calf. Severe deep venous reflux is seen throughout the left lower extremity
== END 2022-08-25 10:39 | disposition home or self-care (01) ==
LOC: HO.US 10:38
PROVIDERS: PCP Internal Medicine; Visit Provider Surgery Vascular Surgery
DX: I83.893 Varicose veins of bilateral lower extremities with other complications (principal)
CPT/HCPCS: 93970

== ENCOUNTER → 2022-09-04 12:51 | Outpatient (BNVA) | payer MEDICARE, OTHER, SELFPAY | PROVIDERS: PCP Internal Medicine; Visit Provider Internal Medicine | DX: Z45.018 Encounter for adjustment and management of other part of cardiac pacemaker (principal); I77.810 Thoracic aortic ectasia; I50.812 Chronic right heart failure; I36.1 Nonrheumatic tricuspid (valve) insufficiency; I48.0 Paroxysmal atrial fibrillation; I10 Essential (primary) hypertension | CPT/HCPCS: 93005; 93280; 99212 ==

== ENCOUNTER → 2022-09-05 11:19 | Outpatient (BNVA) | payer MEDICARE, OTHER, SELFPAY | PROVIDERS: PCP Internal Medicine; Visit Provider Internal Medicine | DX: I48.92 Unspecified atrial flutter (principal); Z79.01 Long term (current) use of anticoagulants; Z51.81 Encounter for therapeutic drug level monitoring | CPT/HCPCS: 85610; 99211 ==

== ENCOUNTER → 2022-09-13 15:10 | Outpatient (REF) | payer MEDICARE, OTHER, SELFPAY | LOC: HO.SL 15:10 | PROVIDERS: PCP Internal Medicine; Visit Provider Internal Medicine | DX: G47.33 Obstructive sleep apnea (adult) (pediatric) (principal) | CPT/HCPCS: 95806 ==

== ENCOUNTER → 2022-09-28 14:02 | Outpatient (BNVA) | payer MEDICARE, OTHER, SELFPAY | PROVIDERS: PCP Internal Medicine; Visit Provider Surgery Vascular Surgery | DX: I50.812 Chronic right heart failure (principal); R60.0 Localized edema; Z95.0 Presence of cardiac pacemaker | CPT/HCPCS: 99212 ==

== ENCOUNTER 2022-10-03 11:20 | Outpatient (REF) | payer MEDICARE, OTHER, SELFPAY ==
[2022-10-03 13:17] LABS: Anion Gap 15 (12-20); Blood Urea Nitrogen 44 mg/dL (9-16); Calcium 9.2 mg/dL (8.4-10.2); Carbon Dioxide 26 mmol/L (22-29); Chloride 106 mmol/L (96-108); Estimated Glomerular Filt Rate 52; Glucose Random 93 mg/dL (60-115); Potassium 4.4 mmol/L (3.3-5.1); Sodium 143 mmol/L (135-145)
== END 2022-10-03 11:21 | disposition home or self-care (01) ==
LOC: HO.LAB 11:20
PROVIDERS: Absent Provider Internal Medicine; PCP Internal Medicine; Visit Provider Internal Medicine
DX: I50.812 Chronic right heart failure (principal); I48.92 Unspecified atrial flutter
CPT/HCPCS: 36415; 80048; 85610; 99211

== ENCOUNTER → 2022-10-31 11:11 | Outpatient (BNVA) | payer MEDICARE, OTHER, SELFPAY | PROVIDERS: PCP Internal Medicine; Visit Provider Internal Medicine | DX: I48.92 Unspecified atrial flutter (principal); Z79.01 Long term (current) use of anticoagulants; Z51.81 Encounter for therapeutic drug level monitoring | CPT/HCPCS: 85610; 99211 ==

== ENCOUNTER 2022-11-08 08:49 | Outpatient (REF) | payer MEDICARE, OTHER, SELFPAY ==
[2022-11-08 11:05] LABS: MANUAL DIFF FLAG NO
[2022-11-08 11:40] LABS: Alanine Aminotransferase 31 U/L (0-40); Albumin Level 3.8 g/dL (3.5-5.0); Alkaline Phosphatase 139 U/L (39-117); Anion Gap 10 (12-20); Aspartate Amino Transferase 33 U/L (5-37); Blood Urea Nitrogen 41 mg/dL (9-16); Calcium 9.1 mg/dL (8.4-10.2); Carbon Dioxide 30 mmol/L (22-29); Chloride 107 mmol/L (96-108); Estimated Glomerular Filt Rate 56; Glucose Random 91 mg/dL (60-115); Potassium 4.4 mmol/L (3.3-5.1); Sodium 143 mmol/L (135-145); Total Protein 6.9 g/dL (6.5-8.0)
[2022-11-08 11:47] LABS: Basophils Percent Auto 0.7 % (0-2); Eosinophils Absolute Auto 0.1 X10*3/uL (0.0-0.4); Eosinophils Percent Auto 2.5 % (0-4); Hematocrit 42.8 % (42.0-52.0); Hemoglobin 13.8 g/dl (14.0-18.0); Imm Gran Abs Auto 0.02 X10*3/uL (0.00-0.03); Imm Gran Pct Auto 0.4 % (0.0-0.4); Lymphocytes Absolute Auto 1.6 X10*3/uL (1.2-4.9); Lymphocytes Percent Auto 27.9 % (20-40); Mean Corpuscular HGB Conc 32.2 g/dl (31.0-36.0); Mean Corpuscular Hemoglobin 29.7 pg (27.0-33.0); Mean Corpuscular Volume 92.2 fL (80.0-98.0); Mean Platelet Volume 11.2 fL (9.4-12.4); Monocytes Absolute Auto 0.6 X10*3/uL (0.1-1.2); Monocytes Percent Auto 10.6 % (2-11); Neutrophils Absolute Auto 3.3 x10*3/uL (2.0-8.3); Neutrophils Percent Auto 57.9 % (45-73); Platelet Count 154 X10*3/uL (160-400); Red Blood Count 4.64 X10*6/uL (4.60-5.80); Red Cell Distribution Width 14.1 % (11.0-16.0); White Blood Count 5.7 X10*3/uL (4.8-10.8)
[2022-11-08 11:49] LABS: Alanine Aminotransferase 29 U/L (0-40); Albumin Level 3.7 g/dL (3.5-5.0); Alkaline Phosphatase 142 U/L (39-117); Anion Gap 11 (12-20); Aspartate Amino Transferase 32 U/L (5-37); Blood Urea Nitrogen 42 mg/dL (9-16); Calcium 9.2 mg/dL (8.4-10.2); Carbon Dioxide 30 mmol/L (22-29); Chloride 108 mmol/L (96-108); Cholesterol 169 mg/dL; Estimated Glomerular Filt Rate > 60; Glucose Fasting 90 mg/dL (60-99); HDL Cholesterol 59 mg/dL; LDL Cholesterol Calculated 94 mg/dl; Potassium 4.5 mmol/L (3.3-5.1); Sodium 144 mmol/L (135-145); Total Protein 6.9 g/dL (6.5-8.0); Triglycerides 82 mg/dL
[2022-11-13 00:03] LABS: PES - Abn Protein Band 1 0.3 g/dL (NONE DETECTED); Prot Elec - Albumin 3.8 g/dL (3.8-4.8); Prot Elec - Alpha1 0.3 g/dL (0.2-0.3); Prot Elec - Alpha2 0.7 g/dL (0.5-0.9); Prot Elec - Beta 1 0.5 g/dL (0.4-0.6); Prot Elec - Beta 2 0.3 g/dL (0.2-0.5); Prot Elec - Gamma 1.5 g/dL (0.8-1.7); Prot Elec - Total Protein 6.9 g/dL (6.1-8.1)
[2022-11-13 20:49] LABS: IgA 152 mg/dL (70-320); IgG 1462 mg/dL (600-1540); IgM 99 mg/dL (50-300)
[2022-11-14 18:24] LABS: Kappa Light Chain, Free Serum 54.6 mg/L (3.3-19.4); Kappa/Lambda Lt Ch Free Ratio 1.96 (0.26-1.65); Lambda Light Chain, Free Serum 27.9 mg/L (5.7-26.3)
[2022-11-17 14:04] LABS: Kappa, Serum 276 mg/dL (176-443); Kappa/Lambda Ratio, Serum 1.36 (1.29-2.55); Lambda, Serum 203 mg/dL (91-240)
== END 2022-11-08 08:50 | disposition home or self-care (01) ==
LOC: HO.HMGCLDS 08:49
PROVIDERS: Internal Medicine Medical Oncology; PCP Internal Medicine; Visit Provider Internal Medicine
DX: Z00.00 Encounter for general adult medical examination without abnormal findings (principal); I10 Essential (primary) hypertension; I48.0 Paroxysmal atrial fibrillation; R60.9 Edema, unspecified; D47.2 Monoclonal gammopathy; C67.9 Malignant neoplasm of bladder, unspecified; C61 Malignant neoplasm of prostate
CPT/HCPCS: 36415; 80053; 80061; 82784; 83521; 83883; 84165; 85025; 86334

== ENCOUNTER → 2022-11-09 12:45 | Outpatient (BNVA) | payer MEDICARE, OTHER, SELFPAY | PROVIDERS: PCP Internal Medicine; Referring Provider Internal Medicine; Visit Provider Internal Medicine | DX: I11.0 Hypertensive heart disease with heart failure (principal); I50.812 Chronic right heart failure; I36.1 Nonrheumatic tricuspid (valve) insufficiency; I48.0 Paroxysmal atrial fibrillation; I77.810 Thoracic aortic ectasia | CPT/HCPCS: 99212 ==

== ENCOUNTER → 2022-11-28 11:40 | Outpatient (BNVA) | payer MEDICARE, OTHER, SELFPAY | PROVIDERS: PCP Internal Medicine; Visit Provider Internal Medicine | DX: I48.92 Unspecified atrial flutter (principal); Z79.01 Long term (current) use of anticoagulants; Z51.81 Encounter for therapeutic drug level monitoring | CPT/HCPCS: 85610; 99211 ==

== ENCOUNTER → 2022-12-04 14:45 | Outpatient (BNVA) | payer MEDICARE, OTHER, SELFPAY | PROVIDERS: PCP Internal Medicine; Visit Provider Internal Medicine | DX: G47.33 Obstructive sleep apnea (adult) (pediatric) (principal); G47.34 Idiopathic sleep related nonobstructive alveolar hypoventilation; I11.0 Hypertensive heart disease with heart failure; I50.812 Chronic right heart failure; I48.0 Paroxysmal atrial fibrillation; I36.1 Nonrheumatic tricuspid (valve) insufficiency; R60.0 Localized edema; Z95.0 Presence of cardiac pacemaker; Z79.01 Long term (current) use of anticoagulants; Z79.899 Other long term (current) drug therapy | CPT/HCPCS: 99202 ==

== ENCOUNTER 2022-12-04 15:39 | Outpatient (REF) | payer MEDICARE, OTHER, SELFPAY ==
--- NOTE | 2022-12-04 16:06 | MHC.AU.HA3 ---
Hearing Instrument Follow-Up- Binaural Date of Visit: 12/04/22 Right Ear: Make, Model, Color, Serial Number: Oticon More 2 miniRITE-T Serial #[id number] Silver Admissions Clinician Repair Warranty: 07/02/2025 Admissions Clinician Loss and Damage Warranty: 07/02/2025 [facility] Service Plan: opted out Battery Size: 312 Bicycle Ii Assembler/Slim Tube: 2/85 Earmold/Dome/CShell/SlimTip:8mm Double de la rosa Type of Wax Guard: ProWax mini fit Dispensed By: [facility] Date of Fittin06/13/2022 Left Ear: Make, Model, Color, Serial Number: Oticon More 2 miniRITE-T Serial #[id number] Silver Admissions Clinician Repair Warranty: 07/02/2025 Admissions Clinician Loss and Damage Warranty: 07/02/2025 [facility] Service Plan: opted out Battery Size: 312 Bicycle Ii Assembler/Slim Tube: 2/85 Earmold/Dome/CShell/SlimTip: 8mm Double de la rosa Type of Wax Guard: ProWax mini fit Dispensed By: [facility] Date of Fittin06/13/2022 Follow-Up Summary: Jung dropped off his left hearing aid reporting that it is . Upon inspection, wax guard was plugged. Cleaned hearing aid. Vacuumed microphones and replaced dome and wax guard. A listening check demonstrated that the hearing aid is now in good working order. Billed $50.00 (no service agreement). Recommendations: Hearing instrument follow-up or maintenance as needed. Diagnosis Code(s): Primary Diagnosis: H90.3 Bilateral Sensorineural Hearing Loss Signature: Provider: Johnie Chinchilla, [facility]
== END 2022-12-04 15:40 | disposition home or self-care (01) ==
LOC: HO.HAP 15:39
PROVIDERS: Visit Provider Internal Medicine
DX: Z13.89 Encounter for screening for other disorder (principal)

== ENCOUNTER → 2022-12-07 11:42 | Outpatient (BNVA) | payer MEDICARE, OTHER, SELFPAY | PROVIDERS: PCP Internal Medicine; Visit Provider Internal Medicine | DX: I48.92 Unspecified atrial flutter (principal); Z51.81 Encounter for therapeutic drug level monitoring; Z79.01 Long term (current) use of anticoagulants | CPT/HCPCS: 85610; 99211 ==

== ENCOUNTER 2022-12-07 12:26 | Outpatient (REF) | payer SELFPAY | END 2022-12-07 12:27 | disposition home or self-care (01) | LOC: HO.HAP 12:26 | PROVIDERS: Visit Provider Internal Medicine | DX: Z46.1 Encounter for fitting and adjustment of hearing aid (principal); H90.3 Sensorineural hearing loss, bilateral | CPT/HCPCS: 92593 ==

== ENCOUNTER 2022-12-08 10:52 | Outpatient (REF) | payer SELFPAY ==
--- NOTE | 2022-12-08 13:27 | MHC.AU.HA3 ---
Hearing Instrument Follow-Up- Binaural Date of Visit: 12/08/22 Right Ear: Make, Model, Color, Serial Number: Oticon More 2 miniRITE-T Serial #[id number] Silver Plumber Helper Repair Warranty: 07/02/2025 Plumber Helper Loss and Damage Warranty: 07/02/2025 [facility] Service Plan: opted out Battery Size: 312 Motion Picture Photographer/Slim Tube: 2/85 Earmold/Dome/CShell/SlimTip:8mm Double de la rosa Type of Wax Guard: ProWax mini fit Dispensed By: [facility] Date of Fittin06/13/2022 Left Ear: Make, Model, Color, Serial Number: Oticon More 2 miniRITE-T Serial #[id number] Silver Plumber Helper Repair Warranty: 07/02/2025 Plumber Helper Loss and Damage Warranty: 07/02/2025 [facility] Service Plan: opted out Battery Size: 312 Motion Picture Photographer/Slim Tube: 2/85 Earmold/Dome/CShell/SlimTip: 8mm Double de la rosa Type of Wax Guard: ProWax mini fit Dispensed By: [facility] Date of Fittin06/13/2022 Follow-Up Summary: [employer] dropped off his left hearing aid again reporting high battery drain. Could not replicate in office. A listening check demonstrated that the hearing aid is in good working order. However, will send for in-warranty highway safety engineer repair to check. Recommendations: Patient will be contacted when materials have arrived. Diagnosis Code(s): Primary Diagnosis: H90.3 Bilateral Sensorineural Hearing Loss Signature: Provider: Johnie Chinchilla, [facility]
== END 2022-12-08 10:53 | disposition home or self-care (01) ==
LOC: HO.HAP 10:52
PROVIDERS: Visit Provider Internal Medicine
DX: Z13.89 Encounter for screening for other disorder (principal)

== ENCOUNTER 2022-12-19 11:29 | Outpatient (AMB) | payer MEDICARE, OTHER, SELFPAY ==
[2022-12-19 11:24] VITALS: BMI 32.8
--- NOTE | 2022-12-19 11:24 | MHC.OFFVIS ---
Intake Vital Signs 12/19/22 11:24 Height 5 ft 4 in Weight 191 lb BMI 32.8 Intake Visit Reasons: 3 month leg check Intake Note: 3 mo leg check s/p conservative treatment compression,elevation & exercise. is still on diuretic and has lost a total of 30 lbs. Accompanied by: Self / Same As Patient Allergies No Known Allergies Allergy (Verified 12/19/22 11:32) HPI 3 month leg check HPI Details Very pleasant 82-year-old gentleman presents for follow-up regarding venous disease. He has done extremely well in terms of his lower extremity edema with Lasix. He had been double dosed by Cardiology and reports that he lost nearly 30 lb. He is overall doing significantly better in ambulating much better. He continues to be concerned about these extremely large varicosities in particular the right lower extremity. They have been a source of pain and discomfort for him. [facility] Medical History Annual physical exam Bladder cancer Bladder outlet obstruction Essential hypertension History of atrial fibrillation History of hydrocele HTN (hypertension) Hyperlipidemia Left tennis elbow Nocturia Nocturnal hypoxemia Normally functioning cardiac pacemaker present SHALONDA (obstructive sleep apnea) PAF (paroxysmal atrial fibrillation) Peripheral edema Prostate cancer Varicose veins of bilateral lower extremities with other complications Surgical History History of hydrocelectomy History of phacoemulsification of cataract of both eyes with intraocular lens implantation Hx of cardiac pacemaker Hx of colonoscopy Hx of cystoscopy Hx of parathyroidectomy Hx of subdural hematoma Hx of varicose vein stripping Family History Father Cancer Prostate cancer Mother Cancer, Onset Age: 85 Son No problems noted. Daughter No problems noted. Maternal Grandfather No problems noted. Maternal Grandmother No problems noted. Paternal Grandfather No problems noted. Paternal Grandmother No problems noted. Social History Housing: House Alcohol intake: current Alcohol intake frequency: holidays/special occasions only Alcohol type: wine Patient Tobacco Use Status: Never used Tobacco e-Cigarette/Vaping Use: Never Used Current occupational status: retired Cognitive needs: No Hearing needs: No Vision needs: Yes Review of Systems Const Reports as per HPI ENT Reports no additional complaints Card Denies chest pain, Denies chest pain at rest and Denies chest pain with activity Resp Denies chest congestion and Denies cough GI Reports no additional complaints Musc Details: pain over varicosities, aching of lower extremities, swelling, cramping, heaviness and tiredness, itching Denies abnormal gait Skin/Breast Reports pruritus and Denies wounds Neuro Reports no additional complaints and Denies abnormal gait Psych Denies no additional complaints Physical Exam Vital Signs: BMI result Body Mass Index 32.8 Const General: cooperative, healthy appearing and comfortable Orientation/consciousness: oriented to person, oriented to place and oriented to time Neck Carotids: no bruits Chest Chest palpation & inspection: normal inspection of the chest and normal palpation of entire chest wall Resp Effort & Inspection: normal respiratory effort and able to speak in complete sentences Cardio Rate: regular rate Heart sounds: S1 normal heart sound present and S2 normal heart sound present Peripheral pulses: Peripheral pulses 2+ throughout GI Inspection: Yes normal to inspection Skin Other: +2 edema, large rope-like varicosities greater than 4 mm right and left thigh and calf CEAP Classification C4 - skin color changes Ep - Etiology Primary As - superficial veins P - reflux General skin exam: dry skin Neuro General: oriented to person, oriented to place and oriented to time Extrem Right lower extremity: full ROM, normal capillary refill and edema Left lower extremity: full ROM, normal capillary refill and edema Psych Mental Status: mental status grossly normal Results Reviewed Results Reviewed: Brief summary of venous insufficiency testing is as follows: right great saphenous vein: Positive right small saphenous vein: negative right accessory vein: none present left great saphenous vein: Positive left small saphenous vein: negative left accessory vein: none present Please note there is no evidence of any venous aneurysms or significant tortuosity Assessment & Plan Assessment & Plan (1) Varicose veins of right lower extremity with inflammation: Code(s): I83.11 - Varicose veins of right lower extremity with inflammation Plan: This patient has varicose veins with inflammation. They continue to be a source of discomfort for the patient. The patient has tried conservative treatment with compression, leg elevation and exercise program for over 3 months time. They have been compliant with all treatment. This has provided minimal relief for the patient. I do not anticipate this course of treatment will alter the underlying etiology. The patient has been scheduled for lower extremity venous treatment inclusive of --- right great saphenous vein Cyanoacralate ablation. Risks, benefits, and complications of this procedure has been discussed in detail with the patient including but not limited to bleeding, infection, and the development of a DVT. The patient has demonstrated a clear understanding and has consented. We will schedule the patient as soon as possible. Thank you for allowing us to participate in this patient's care. If there are any questions or concerns please do not hesitate to contact us. Coding Level of Care Code Est Pt Level 4 (06736) Diagnoses Varicose veins of right lower extremity with inflammation I83.11
== END 2022-12-19 12:06 | disposition home or self-care (01) ==
LOC: HO.HVS 11:29
PROVIDERS: PCP Internal Medicine; Visit Provider Surgery Vascular Surgery
DX: I83.11 Varicose veins of right lower extremity with inflammation (principal)
CPT/HCPCS: 99214

== ENCOUNTER → 2022-12-19 11:29 | Outpatient (BNVA) | payer MEDICARE, OTHER, SELFPAY | PROVIDERS: PCP Internal Medicine; Visit Provider Surgery Vascular Surgery | DX: I83.11 Varicose veins of right lower extremity with inflammation (principal) | CPT/HCPCS: 99212 ==

== ENCOUNTER 2022-12-21 11:14 | Outpatient (AMB) | payer MEDICARE, OTHER, SELFPAY ==
[2022-12-21 11:20] LABS: ~PT, ~INR - Anti Coag Clinic 4.3 (0.9-1.1)
--- NOTE | 2022-12-21 11:40 | MHC.OFFVISCO ---
Intake Intake Visit Reasons: Anticoagulation Allergies No Known Allergies Allergy (Verified 12/21/22 11:15) Medication List - Last Reconciled 12/21/22 by Lily Lerner, RN acetaminophen ER (Tylenol Arthritis Pain) 650 mg PO Q8H amlodipine 2.5 mg PO DAILY furosemide (Lasix) 80 mg (2 x 40 mg) PO DAILY 90 days lisinopril 40 mg PO DAILY multivitamin 1 tab PO DAILY sildenafil 100 mg PO DAILY PRN 30 days tamsulosin 0.4 mg PO BEDTIME warfarin 5 mg See Protocol PO DIRECTED zolpidem 10 mg PO ONCE 2 days Nursing Note INR 4.3 out of therapeutic range INR HAS BEEN LABILE - NOT SURE OF SOURCE JUST YET MAY BE RELATED TO :1) MVI BRAND AND TYPE CHANGE FROM A SOLID TO A GUMMY ABOUT 1 MONTH AGO 2) FUROSEMIDE INCREASED ABOUT 1 MONTH AGO- EDEMA HAS DECREASED Medications and supplements reviewed Patient status: STATES FEELS BETTER WITH INCREASED FUROSEMIDE - Medications or supplements: NO RECENT - 1 MONTH AGO MENTIONED ABOVE Diet: GOOD EATS A MIX OF FRUITS AND VEGETABLES Denies any signs and symptoms of bleeding or clotting or unusual bruising Bleeding, bruising, clotting discussed Nutritional guidance given: REVIEW FOOD LIST WEEKLY TO SEE IF ANY THING HAS SNUCK INTO YOUR DIET Dose: HOLD TODAY THEN DECREASE DOSE 2.5MG X 3 DAYS/ 5MG X 4 DAYS F/U INR Date: 1 WEEK ? BRING PHOTO OF LABEL WITH PHONE TO CHECK MG AMTS OF VIT AND MIN IN MVI ? Patient verbalizing understanding of instructions given. Anti-Coag Initial Assessment Social Hx Patient Tobacco Use Status: Never used Tobacco alcohol intake: current Alcohol intake frequency: holidays/special occasions only Coding Level of Care Code Est Patient Level 1 Diagnoses Current use of anticoagulant therapy Z79.01 Assessment & Plan Assessment & Plan (1) Current use of anticoagulant therapy: Code(s): Z79.01 - half-way (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
== END 2022-12-21 11:46 | disposition home or self-care (01) ==
LOC: HO.ACS 11:14
PROVIDERS: PCP Internal Medicine; Visit Provider Internal Medicine
DX: Z79.01 Long term (current) use of anticoagulants (principal)

== ENCOUNTER → 2022-12-21 11:14 | Outpatient (BNVA) | payer MEDICARE, OTHER, SELFPAY | PROVIDERS: PCP Internal Medicine; Visit Provider Internal Medicine | DX: I48.92 Unspecified atrial flutter (principal); Z79.01 Long term (current) use of anticoagulants; Z51.81 Encounter for therapeutic drug level monitoring | CPT/HCPCS: 85610; 99211 ==

== ENCOUNTER 2022-12-26 14:00 | Outpatient (REF) | payer MEDICARE, OTHER, SELFPAY | END 2022-12-26 14:01 | disposition home or self-care (01) | LOC: HO.HAP 14:00 | PROVIDERS: Visit Provider Internal Medicine | DX: Z13.89 Encounter for screening for other disorder (principal) ==

== ENCOUNTER 2023-01-01 11:47 | Outpatient (AMB) | payer MEDICARE, OTHER, SELFPAY ==
[2023-01-01 12:02] LABS: ~PT, ~INR - Anti Coag Clinic 2.8 (0.9-1.1)
--- NOTE | 2023-01-01 12:12 | MHC.OFFVISCO ---
Intake Intake Visit Reasons: Anticoagulation Allergies No Known Allergies Allergy (Verified 01/01/23 11:53) Medication List - Last Reconciled 01/01/23 by Mireille Donato RN acetaminophen ER (Tylenol Arthritis Pain) 650 mg PO Q8H amlodipine 2.5 mg PO DAILY furosemide (Lasix) 80 mg (2 x 40 mg) PO DAILY 90 days lisinopril 40 mg PO DAILY multivitamin 1 tab PO DAILY sildenafil 100 mg PO DAILY PRN 30 days tamsulosin 0.4 mg PO BEDTIME warfarin 5 mg See Protocol PO DIRECTED zolpidem 10 mg PO ONCE 2 days Nursing Note NO CP,SOB,DIET/MED CHANGES,FALLS OR SX OF BLEEDING. RESUME PREV.DOSE AND FOLLOW-UP IN 4 WEEKS. GOOD UNDERSTANDING OF DOSING INSTR.L Anti-Coag Initial Assessment Social Hx Patient Tobacco Use Status: Never used Tobacco alcohol intake: current Alcohol intake frequency: holidays/special occasions only Coding Level of Care Code Est Patient Level 1 Diagnoses Current use of anticoagulant therapy Z79.01 Results AMB INR Fingerstick AMB INR Fingerstick 2.8 Last Edit by Mireille Donato RN on 01/01/23 12:03 Assessment & Plan Assessment & Plan (1) Current use of anticoagulant therapy: Code(s): Z79.01 - FPC (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
== END 2023-01-01 12:15 | disposition home or self-care (01) ==
LOC: HO.ACS 11:49
PROVIDERS: PCP Internal Medicine; Visit Provider Internal Medicine
DX: Z79.01 Long term (current) use of anticoagulants (principal)

== ENCOUNTER → 2023-01-01 11:47 | Outpatient (BNVA) | payer MEDICARE, OTHER, SELFPAY | PROVIDERS: PCP Internal Medicine; Visit Provider Internal Medicine | DX: I48.92 Unspecified atrial flutter (principal); Z51.81 Encounter for therapeutic drug level monitoring; Z79.01 Long term (current) use of anticoagulants | CPT/HCPCS: 85610; 99211 ==

== ENCOUNTER → 2023-01-21 20:30 | Outpatient (REF) | payer MEDICARE, OTHER, SELFPAY | LOC: HO.SL 20:30 | PROVIDERS: PCP Internal Medicine; Visit Provider Internal Medicine | DX: G47.33 Obstructive sleep apnea (adult) (pediatric) (principal); G47.34 Idiopathic sleep related nonobstructive alveolar hypoventilation | CPT/HCPCS: 95811 ==

== ENCOUNTER → 2023-01-21 20:30 | Outpatient (BNV) | payer MEDICARE, OTHER, SELFPAY | PROVIDERS: PCP Internal Medicine; Visit Provider Internal Medicine | DX: G47.33 Obstructive sleep apnea (adult) (pediatric) (principal) | CPT/HCPCS: 95811 ==

== ENCOUNTER 2023-01-25 10:38 | Outpatient (REF) | payer MEDICARE, OTHER, SELFPAY ==
[2023-01-25 13:25] LABS: MANUAL DIFF FLAG NO
[2023-01-25 13:51] LABS: Basophils Absolute Auto 0.1 X10*3/uL (0.0-0.2); Basophils Percent Auto 0.7 % (0-2); Hematocrit 38.3 % (42.0-52.0); Hemoglobin 12.6 g/dl (14.0-18.0); Imm Gran Abs Auto 0.05 X10*3/uL (0.00-0.03); Imm Gran Pct Auto 0.6 % (0.0-0.4); Lymphocytes Absolute Auto 1.1 X10*3/uL (1.2-4.9); Lymphocytes Percent Auto 13.2 % (20-40); Mean Corpuscular HGB Conc 32.9 g/dl (31.0-36.0); Mean Corpuscular Hemoglobin 30.3 pg (27.0-33.0); Mean Corpuscular Volume 92.1 fL (80.0-98.0); Monocytes Absolute Auto 1.1 X10*3/uL (0.1-1.2); Monocytes Percent Auto 13.2 % (2-11); Neutrophils Percent Auto 72.3 % (45-73); Platelet Count 199 X10*3/uL (160-400); Red Blood Count 4.16 X10*6/uL (4.60-5.80); Red Cell Distribution Width 13.8 % (11.0-16.0); White Blood Count 8.3 X10*3/uL (4.8-10.8)
[2023-01-25 13:59] LABS: Alanine Aminotransferase 19 U/L (0-40); Albumin Level 3.8 g/dL (3.5-5.0); Alkaline Phosphatase 113 U/L (39-117); Anion Gap 12 (12-20); Aspartate Amino Transferase 22 U/L (5-37); Bilirubin Total 0.9 mg/dL (0.0-1.0); Blood Urea Nitrogen 46 mg/dL (9-16); Calcium 9.6 mg/dL (8.4-10.2); Carbon Dioxide 27 mmol/L (22-29); Chloride 106 mmol/L (96-108); Cholesterol 171 mg/dL; Estimated Glomerular Filt Rate 49; Glucose Fasting 81 mg/dL (60-99); HDL Cholesterol 52 mg/dL; LDL Cholesterol Calculated 100 mg/dl; Potassium 4.4 mmol/L (3.3-5.1); Sodium 141 mmol/L (135-145); Total Protein 7.3 g/dL (6.5-8.0); Triglycerides 96 mg/dL
[2023-01-25 14:48] LABS: Erythrocyte Sedimentation Rate 42 MM/HR (0-15)
== END 2023-01-25 10:39 | disposition home or self-care (01) ==
LOC: HO.HMGCLDS 10:38
PROVIDERS: Internal Medicine Medical Oncology; PCP Internal Medicine; Visit Provider Urology
DX: Z12.5 Encounter for screening for malignant neoplasm of prostate (principal); N40.0 Benign prostatic hyperplasia without lower urinary tract symptoms; C61 Malignant neoplasm of prostate; E66.8 Other obesity
CPT/HCPCS: 36415; 80053; 80061; 84153; 85025; 85652

== ENCOUNTER 2023-01-29 13:20 | Outpatient (AMB) | payer MEDICARE, OTHER, SELFPAY ==
[2023-01-29 13:29] VITALS: BP 96/54; PULSE 70; O2SAT 94; BMI 32.8
--- NOTE | 2023-01-29 13:29 | MHC.OFFVIS ---
Intake Vital Signs 01/29/23 13:29 Height 5 ft 4 in Weight 191 lb BMI 32.8 BP 96/54 L Blood Pressure Location Lt brachial Position Sitting Pulse 70 Pulse Source Pulse Oximeter Pulse Oximetry (%) 94 Oxygen Delivery Method Room Air Intake Visit Reasons: Obstructive sleep apnea Intake Note: pt is here for follow up and states he is feeling okay today, here for titration study. Cloth Pattern Maker Required: No Allergies No Known Allergies Allergy (Verified 01/29/23 13:47) Medication List - Last Reconciled 01/29/23 by David Membreno MD acetaminophen ER (Tylenol Arthritis Pain) 650 mg PO Q8H amlodipine 2.5 mg PO DAILY furosemide (Lasix) 80 mg (2 x 40 mg) PO DAILY 90 days lisinopril 40 mg PO DAILY multivitamin 1 tab PO DAILY sildenafil 100 mg PO DAILY PRN 30 days tamsulosin 0.4 mg PO BEDTIME warfarin 5 mg See Protocol PO DIRECTED zolpidem 10 mg PO ONCE 2 days Do you need a note to return to daycare/school/sports/work: No HPI Obstructive sleep apnea HPI Details This 82 years old very pleasant gentleman is here for follow-up after polysomnogram study in the sleep lab. He had CPAP titration study in the sleep lab because associated nocturnal hypoxemia with moderately severe obstructive sleep apnea. He say is that his sleep was restless cause of aches and pains in the body, however he did sleep fairly well. He tolerated the fullface mask okay, Patient was titrated to a pressure of 15 cm to achieve optimal results. There were still some residual hypopneas and apneas but not significant. Further increase in the pressure is caused emergence of some central apnea. There was some residual hypoxemia and oxygen at 1 L/minute was required. [facility] Medical History Annual physical exam Bladder cancer Bladder outlet obstruction Essential hypertension History of atrial fibrillation History of hydrocele HTN (hypertension) Hyperlipidemia Left tennis elbow Nocturia Nocturnal hypoxemia Normally functioning cardiac pacemaker present SHALONDA (obstructive sleep apnea) PAF (paroxysmal atrial fibrillation) Peripheral edema Prostate cancer Varicose veins of bilateral lower extremities with other complications Surgical History History of hydrocelectomy History of phacoemulsification of cataract of both eyes with intraocular lens implantation Hx of cardiac pacemaker Hx of colonoscopy Hx of cystoscopy Hx of parathyroidectomy Hx of subdural hematoma Hx of varicose vein stripping Family History Father Cancer Prostate cancer Mother Cancer, Onset Age: 85 Son No problems noted. Daughter No problems noted. Maternal Grandfather No problems noted. Maternal Grandmother No problems noted. Paternal Grandfather No problems noted. Paternal Grandmother No problems noted. Social History Housing: House Alcohol intake: current Alcohol intake frequency: holidays/special occasions only Alcohol type: wine Patient Tobacco Use Status: Never used Tobacco e-Cigarette/Vaping Use: Never Used Current occupational status: retired Cognitive needs: No Hearing needs: No Vision needs: Yes Review of Systems Const All systems reviewed & are unremarkable except as noted in HPI and below Eyes Reports no additional complaints ENT Reports no additional complaints Card Denies chest pain, Reports irregular heart rhythm, Reports leg edema and Denies dyspnea on exertion Resp Denies cough, Denies excessive phlegm production, Denies dyspnea on exertion and Denies wheezing GI Reports no additional complaints Reports erectile dysfunction Musc Reports no additional complaints Skin/Breast Reports system reviewed and no additional complaints, except as documented Neuro Reports no additional complaints Psych Reports no additional complaints Aller/Immun Denies wheezing Physical Exam Vital Signs: Last Vital Signs Pulse 70 01/29/23 13:29 BP 96/54 L 01/29/23 13:29 Pulse Ox 94 01/29/23 13:29 Oxygen Delivery Method Room Air 01/29/23 13:29 BMI result Body Mass Index 32.8 Const General: comfortable, no acute distress, alert and awake Orientation/consciousness: patient oriented x3 HEENT Head: Yes normal to inspection General nose exam: No nasal polyps present and No nasal discharge present Face and sinus: Yes sinuses nontender Mouth: oropharynx normal (MALLAMPATI CLASS 2) Throat: Yes posterior oropharynx normal Eyes General: appearance normal, both eyes and all related structures Neck Neck: Yes normal visual inspection, Yes no lymphadenopathy, Yes trachea midline and Yes no JVD Thyroid: Thyroid normal Chest Chest palpation & inspection: normal inspection of the chest, normal palpation of entire chest wall and no tenderness Resp Effort & Inspection: normal respiratory effort Auscultation: clear to auscultation bilaterally, no crackles and no wheezes Cardio Palpation: normal PMI Rate: regular rate Rhythm: regular rhythm Heart sounds: no gallops and no murmurs GI Palpation (GI): Soft to palpation, Tenderness to palpation present (GI), No hepatosplenomegaly present and Palpable mass present Auscultation: normal bowel sounds Back/Spine/Pelvis Thoracic/Lumbar Spine: thoracic and lumbar spine normal to inspection Skin General skin exam: no rashes or lesions noted Neuro General: patient oriented x3 and no focal motor deficits Cranial nerves: Yes CN's II-XII intact bilaterally Extrem General: Yes normal to inspection, Yes no calf tenderness and Yes edema (VARICOSE VEINS AND STASIS EDEMA OF BOTH LEGS MORE SO ON THE RIGHT SIDE.) Psych Appearance: grossly normal and well kempt Speech and movement: Normal speech and movement present Results Reviewed Results Reviewed: CPAP titration study in the sleep lab, reviewed on , shows that the optimal results were obtained with pressure of 15 cm. Beyond that addition of higher bilevel pressures , did not make any significant difference. He did have O2 sat below 88% for 88 minutes, this was corrected by adding O2 1 L/minute. Assessment & Plan Assessment & Plan (1) SHALONDA (obstructive sleep apnea): Comment: THE SLEEP STUDY IS POSITIVE FOR MODERATELY SEVERE OBSTRUCTIVE SLEEP APNEA. I THINK BECAUSE HE HAS LOST SIGNIFICANT AMOUNT OF WEIGHT, THE DEGREE OF SLEEP APNEA MAY HAVE BEEN DECREASED. ASSOCIATED NOCTURNAL HYPOXEMIA IS OF CONCERN. PATIENT DID HAVE CPAP TITRATION STUDY OPTIMAL RESULTS OBTAINED WITH PRESSURE OF 15 CM USING FULLFACE MASK OF MEDIUM SIZE. PATIENT ALSO NEEDED O2 1 L/MINUTE ALONG WITH THE CPAP. I HAVE DISCUSSED WITH THE PATIENT TODAY HE AGREES TO GO ON THE CPAP. ORDERS ARE BEING GENERATED AND WILL BE SENT TO DME PROVIDER. Code(s): G47.33 - Obstructive sleep apnea (adult) (pediatric) (2) Nocturnal hypoxemia: Comment: PATIENT DOES HAVE ASSOCIATED NOCTURNAL HYPOXEMIA. IT WAS CORRECTED WITH THE USE OF CPAP BUT RESIDUAL HYPOXEMIA REMAINED AND HE REQUIRED O2 SUPPLEMENTATION AT 1 L/MINUTE. WE WILL ORDER OXYGEN 1 L/MINUTE ALONG WITH THE CPAP. Code(s): G47.34 - Idiopathic sleep related nonobstructive alveolar hypoventilation (3) Chronic right heart failure: Comment: PATIENT IS A KNOWN CASE OF CHRONIC RIGHT-SIDED HEART FAILURE, HE HAD RATHER SEVERE EDEMA OF LOWER EXTREMITIES, BACK ABOUT 3 MONTHS AGO, WHICH HAS IMPROVED WITH DIURESIS. THIS HAS RESULTED IN A WEIGHT LOSS OF ABOUT 36 LB. Code(s): I50.812 - Chronic right heart failure (4) Bilateral lower extremity edema: Comment: HE HAS MODERATE DEGREE OF EDEMA OF LOWER EXTREMITIES , WHICH IS PARTLY DUE TO CONGESTIVE HEART FAILURE AND PARTLY DUE TO PRESENCE OF VARICOSE VEINS. PATIENT IS BEING TREATED WITH DIURESIS IS AND HE IS ALSO FOLLOWED BY E VASCULAR SURGEON DR. PEREYRA, REGULARLY Code(s): R60.0 - Localized edema Coding Level of Care Code Est Pt Level 3 (13997) Diagnoses SHALONDA (obstructive sleep apnea) G47.33 Nocturnal hypoxemia G47.34 Chronic right heart failure I50.812 Bilateral lower extremity edema R60.0
== END 2023-01-29 13:47 | disposition home or self-care (01) ==
PROVIDERS: PCP Internal Medicine; Visit Provider Internal Medicine
DX: G47.33 Obstructive sleep apnea (adult) (pediatric) (principal); G47.34 Idiopathic sleep related nonobstructive alveolar hypoventilation; I50.812 Chronic right heart failure; R60.0 Localized edema
CPT/HCPCS: 99213

== ENCOUNTER → 2023-01-29 13:20 | Outpatient (BNVA) | payer MEDICARE, OTHER, SELFPAY | PROVIDERS: PCP Internal Medicine; Visit Provider Internal Medicine | DX: G47.33 Obstructive sleep apnea (adult) (pediatric) (principal); G47.34 Idiopathic sleep related nonobstructive alveolar hypoventilation; I50.812 Chronic right heart failure; R60.0 Localized edema | CPT/HCPCS: 99212 ==

== ENCOUNTER 2023-02-07 11:08 | Outpatient (AMB) | payer MEDICARE, OTHER, SELFPAY ==
[2023-02-07 11:27] LABS: Prothrombin Time Whole Bld POC 51.5 sec (11.1-13.5); ~PT, ~INR - Anti Coag Clinic 4.3 (0.9-1.1)
--- NOTE | 2023-02-07 11:30 | MHC.OFFVISCO ---
Intake Intake Visit Reasons: Anticoagulation Allergies No Known Allergies Allergy (Verified 02/07/23 11:21) Medication List - Last Reconciled 02/07/23 by Savannah Barrios RN acetaminophen ER (Tylenol Arthritis Pain) 650 mg PO Q8H amlodipine 2.5 mg PO DAILY furosemide (Lasix) 80 mg (2 x 40 mg) PO DAILY 90 days lisinopril 40 mg PO DAILY multivitamin 1 tab PO DAILY sildenafil 100 mg PO DAILY PRN 30 days tamsulosin 0.4 mg PO BEDTIME warfarin 5 mg See Protocol PO DIRECTED zolpidem 10 mg PO ONCE 2 days Nursing Note INR 4.3-? out of therapeutic range Medications and supplements reviewed Patient status: no c.o- unsure why inr is elev, denies new medications, denies tylenol, denies etoh, denies n/v/d Medications or supplements:no changes Diet: less Denies any signs and symptoms of bleeding or clotting or unusual bruising Bleeding, bruising, clotting discussed - aware high risk for bleeding- avoid high risk activities bruise noted- left forearm Nutritional guidance given: eat greens for 2 days, no reds for 2 days Dose: hold today, 2.5mg tomm then cont reg 2.5mg x 2, 5mg x 5 F/U INR Date : 1 week?? Patient verbalizing understanding of instructions given. pt to have right venaseal on 02/16/23 Anti-Coag Initial Assessment Social Hx Patient Tobacco Use Status: Never used Tobacco alcohol intake: current Alcohol intake frequency: holidays/special occasions only Coding Level of Care Code Est Patient Level 1 Diagnoses Current use of anticoagulant therapy Z79.01 Assessment & Plan Assessment & Plan (1) Current use of anticoagulant therapy: Code(s): Z79.01 - buttermaker continuous churn (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
== END 2023-02-07 11:41 | disposition home or self-care (01) ==
LOC: HO.ACS 11:08
PROVIDERS: PCP Internal Medicine; Visit Provider Internal Medicine
DX: Z79.01 Long term (current) use of anticoagulants (principal)

== ENCOUNTER → 2023-02-07 11:08 | Outpatient (BNVA) | payer MEDICARE, OTHER, SELFPAY | PROVIDERS: PCP Internal Medicine; Visit Provider Internal Medicine | DX: I48.92 Unspecified atrial flutter (principal); Z79.01 Long term (current) use of anticoagulants; Z51.81 Encounter for therapeutic drug level monitoring | CPT/HCPCS: 85610; 99211 ==

== ENCOUNTER → 2023-02-09 23:59 | Outpatient (BNV) | payer MEDICARE, OTHER, SELFPAY ==
--- NOTE | 2023-02-18 17:11 | MHC.OFFVIS ---
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 Daughter No problems noted. Maternal Grandfather No problems noted. Maternal Grandmother No problems noted. Paternal Grandfather No problems noted. Paternal Grandmother No problems noted. Social History Housing: House Alcohol intake: current Alcohol intake frequency: holidays/special occasions only Alcohol type: wine Patient Tobacco Use Status: Never used Tobacco Smoked in Last 30 Days: No e-Cigarette/Vaping Use: Never Used Use of substances other than those prescribed or required for medical reasons: No Advance Directives: No Advance Directives Information Provided: Yes Current occupational status: retired Cognitive needs: No Hearing needs: No Vision needs: Yes Office Procedures Cardiac Device Check Cardiac Device Check Details: Date of service- 02/09/2023 ; Battery life 40%; normal lead parameters; AP 21%; PATHOLOGY TECHNICIAN 93%; persistent atrial fibrillation, controlled. Overall normal device function. [id number]-Tixxop Cardiac Device Interrogation, pacemaker Procedure code (CPT) selection complete Assessment & Plan Assessment & Plan (1) PAF (paroxysmal atrial fibrillation): Code(s): I48.0 - Paroxysmal atrial fibrillation Coding Level of Care Code Procedure Only Diagnoses PAF (paroxysmal atrial fibrillation) I48.0 CPT Codes Cardiac Device Check - Cardiac Device 12: 10574-[id number] Cardiac Device Interrogation, pacemaker ([id number])
== END ==
PROVIDERS: PCP Internal Medicine; Visit Provider Internal Medicine
DX: I48.0 Paroxysmal atrial fibrillation (principal); Z95.0 Presence of cardiac pacemaker
CPT/HCPCS: 93294

== ENCOUNTER 2023-02-13 11:10 | Outpatient (AMB) | payer MEDICARE, OTHER, SELFPAY ==
[2023-02-13 11:34] LABS: Prothrombin Time Whole Bld POC 38.5 sec (11.1-13.5); ~PT, ~INR - Anti Coag Clinic 3.2 (0.9-1.1)
--- NOTE | 2023-02-13 11:42 | MHC.OFFVISCO ---
Intake Intake Visit Reasons: Anticoagulation Allergies No Known Allergies Allergy (Verified 02/13/23 11:27) Medication List - Last Reconciled 02/13/23 by Juliana Martinez, RN acetaminophen ER (Tylenol Arthritis Pain) 650 mg PO Q8H amlodipine 2.5 mg PO DAILY furosemide (Lasix) 80 mg (2 x 40 mg) PO DAILY 90 days lisinopril 40 mg PO DAILY multivitamin 1 tab PO DAILY sildenafil 100 mg PO DAILY PRN 30 days tamsulosin 0.4 mg PO BEDTIME warfarin 5 mg See Protocol PO DIRECTED zolpidem 10 mg PO ONCE 2 days Nursing Note Amb to ACS feeling ok, sts previous high INR, sts he had some salads with rick lettuce Medications and supplements reviewed HAS VENASEAL PRCEDURE SCED 02/[address] PEREYRA PT STS WARFARIN NOT DISCUSSED, PT PLAN TO CONTINUE WARFARIN, WILL COMPOSE NOTE TO DR PEREYRA No other changes in health, diet, medications, or supplements Denies any unusual signs and symptoms of bruising, bleeding, has resolving large ecchymosis left forearm Denies any new Chest pain, SOB, or clotting INR: 3.2 just above therapeutic range (prev INR was 4.3 on 02/07 had hold and decrease of warfarin) Nutritional guidance given: greens today then balance greens and reds in diet Dose: with upcoming procedure decrease warfarin today to 2.5mg (vs 5mg) then continue usual dosing; 2.5mg x 2 days and 5mg x 5 days unless otherwise directed by Dr Pereyra for procedure F/U INR: 1 week Patient verbalizes understanding of instructions given with accurate read back/ teach back of dosing Anti-Coag Initial Assessment Social Hx Patient Tobacco Use Status: Never used Tobacco alcohol intake: current Alcohol intake frequency: holidays/special occasions only Coding Level of Care Code Est Patient Level 1 Diagnoses Current use of anticoagulant therapy Z79.01 Time Spent (min) 15 Assessment & Plan Assessment & Plan (1) Current use of anticoagulant therapy: Code(s): Z79.01 - intermodal customer service (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
== END 2023-02-13 12:02 | disposition home or self-care (01) ==
LOC: HO.ACS 11:10
PROVIDERS: PCP Internal Medicine; Visit Provider Internal Medicine
DX: Z79.01 Long term (current) use of anticoagulants (principal)

== ENCOUNTER → 2023-02-13 11:10 | Outpatient (BNVA) | payer MEDICARE, OTHER, SELFPAY | PROVIDERS: PCP Internal Medicine; Visit Provider Internal Medicine | DX: C61 Malignant neoplasm of prostate (principal); C67.9 Malignant neoplasm of bladder, unspecified; I48.92 Unspecified atrial flutter; Z79.01 Long term (current) use of anticoagulants; Z51.81 Encounter for therapeutic drug level monitoring | CPT/HCPCS: 85610; 99211; 99212 ==

== ENCOUNTER 2023-02-13 11:52 | Outpatient (AMB) | payer MEDICARE, OTHER, SELFPAY ==
--- NOTE | 2023-02-13 11:56 | MHC.OFFVIS ---
Intake Intake Visit Reasons: PSA Follow Up(set) Intake Note: Patient is present for Follow Up PSA Urology Med: Sildenafil, Tamsulosin Antibiotic Allergy: none Blood Thinner: Warfarin [facility]: [facility] Allergies No Known Allergies Allergy (Verified 02/13/23 11:27) Medication List - Last Reconciled 02/13/23 by Kalia Tavera MD acetaminophen ER (Tylenol Arthritis Pain) 650 mg PO Q8H amlodipine 2.5 mg PO DAILY furosemide (Lasix) 80 mg (2 x 40 mg) PO DAILY 90 days lisinopril 40 mg PO DAILY multivitamin 1 tab PO DAILY sildenafil 100 mg PO DAILY PRN 30 days tamsulosin 0.4 mg PO BEDTIME warfarin 5 mg See Protocol PO DIRECTED zolpidem 10 mg PO ONCE 2 days HPI HPI Comments History of Present Illness Details Monica is a pleasant male. He is a patient of Dr. Lowe. He is seen for the following urologic conditions - prostate cancer - bladder cancer - erectile dysfunction PSA remains well controlled Continues with cystoscopy and checks at [facility] May check next year in office Prostate cancer brachytherapy 2015 [facility] Prostate cancer diagnosed by Dr. Joe Initial therapy brachytherapy at [facility] 2015 PSA well controlled subsequently Had mild associated urgency frequency responsive to Flomax Occasional nocturia PSA 03/01 0.1, 03/02 0.1, 01/31 0.1 Continue surveillance Bladder cancer TURBT 2014 and 2015 Superficial bladder cancer diagnosed by Dr. Joe Management with TURBT Associated therapy immunotherapy induction at [facility] Check cystoscopies performed at [facility] - March 2022 Patient states last check cystoscopy normal Erectile Dysfunction Has not used any previous medication Previously prescribe sildenafil 100 mg Most common side effect is headache PFSH Medical History Annual physical exam Bladder cancer Bladder outlet obstruction Essential hypertension History of atrial fibrillation History of hydrocele HTN (hypertension) Hyperlipidemia Left tennis elbow Nocturia Nocturnal hypoxemia Normally functioning cardiac pacemaker present SHALONDA (obstructive sleep apnea) PAF (paroxysmal atrial fibrillation) Peripheral edema Prostate cancer Varicose veins of bilateral lower extremities with other complications Surgical History History of hydrocelectomy History of phacoemulsification of cataract of both eyes with intraocular lens implantation Hx of cardiac pacemaker Hx of colonoscopy Hx of cystoscopy Hx of parathyroidectomy Hx of subdural hematoma Hx of varicose vein stripping Family History Father Cancer Prostate cancer Mother Cancer, Onset Age: 85 Son No problems noted. Daughter No problems noted. Maternal Grandfather No problems noted. Maternal Grandmother No problems noted. Paternal Grandfather No problems noted. Paternal Grandmother No problems noted. Social History Housing: House Alcohol intake: current Alcohol intake frequency: holidays/special occasions only Alcohol type: wine Patient Tobacco Use Status: Never used Tobacco e-Cigarette/Vaping Use: Never Used Current occupational status: retired Cognitive needs: No Hearing needs: No Vision needs: Yes Review of Systems Const Denies chills and Denies fever(s) Card Reports no additional complaints and Denies syncope Resp Denies cough GI Denies abdominal pain and Denies heartburn Reports as per HPI and Denies change in libido Neuro Denies syncope Psych Denies change in libido Endo Denies change in libido Physical Exam Const General: cooperative, healthy appearing, comfortable and no acute distress Orientation/consciousness: patient oriented x3 HEENT Face and sinus: Yes normal facial exam Mouth: moist mucous membranes Neck Neck: Yes normal visual inspection, Yes full ROM and Yes trachea midline Chest Chest palpation & inspection: normal inspection of the chest Resp Effort & Inspection: normal respiratory effort, able to speak in complete sentences and no respiratory distress GI Inspection: Yes normal to inspection Back/Spine/Pelvis Cervical Spine: normal cervical lordosis Thoracic/Lumbar Spine: thoracic and lumbar spine normal to inspection Skin General skin exam: no rashes or lesions noted Neuro General: patient oriented x3, gait normal, tone normal and moves all extremities Extrem General: Yes normal to inspection and Yes capillary refill normal Assessment & Plan Assessment & Plan (1) Prostate cancer: Comment: s/p RTX seed Code(s): C61 - Malignant neoplasm of prostate (2) Bladder cancer: Code(s): C67.9 - Malignant neoplasm of bladder, unspecified Qualifiers: Bladder location: unspecified site Qualified Code(s): C67.9 - Malignant neoplasm of bladder, unspecified Plan PSA next year Orders: Orders Prostate Specific Antigen 364 Days C61 - Malignant neoplasm of prostate Medications: Changed From tamsulosin 0.4 mg PO BEDTIME 90 caps 2RF C61 - Malignant neoplasm of prostate To tamsulosin 0.4 mg PO BEDTIME 90 caps 3RF 90 days C61 - Malignant neoplasm of prostate Patient Instructions: Imaging studies, laboratory and physical exam results were discussed and reviewed in detail. No major barriers to patient understanding were identified. An opportunity to ask questions regarding the treatment plan was provided. All questions were answered. The patient expressed understanding and agreement with the above treatment plan. The patient is aware they should contact our office by phone for worsening of their current condition or the appearance of new urologic symptoms. Compliance is encouraged with any medications and followup testing that is ordered. It is a privilege to participate in the urologic care of your patient. If you have any questions or concerns regarding treatment for the above conditions, or other urologic issues, please do not hesitate to contact me. The office telephone contact is [phone]. This note is constructed using voice recognition software. While every effort has been made to ensure accuracy casting house laborer errors may have been included. Yours sincerely, Dr Kalia Tavera MD, [facility] - Urology Providers of Expert, Compassionate Care for the Genitourinary System Coding Level of Care Code Est Pt Level 4 (40504) Diagnoses Prostate cancer C61 Bladder cancer C67.9 Bladder location: unspecified site
== END 2023-02-13 12:13 | disposition home or self-care (01) ==
PROVIDERS: PCP Internal Medicine; Visit Provider Urology
DX: C61 Malignant neoplasm of prostate (principal); C67.9 Malignant neoplasm of bladder, unspecified
CPT/HCPCS: 99214

== ENCOUNTER 2023-02-16 08:17 | Outpatient (AMB) | payer MEDICARE, OTHER, SELFPAY ==
[2023-02-16 08:56] VITALS: BMI 32.8
--- NOTE | 2023-02-16 08:56 | MHC.OFFVIS ---
Intake Vital Signs 02/16/23 08:56 Height 5 ft 4 in Weight 191 lb BMI 32.8 Intake Visit Reasons: Right Venaseal Intake Note: Right Venaseal Allergies No Known Allergies Allergy (Verified 02/13/23 11:27) [facility] Medical History Annual physical exam Bladder cancer Bladder outlet obstruction Essential hypertension History of atrial fibrillation History of hydrocele HTN (hypertension) Hyperlipidemia Left tennis elbow Nocturia Nocturnal hypoxemia Normally functioning cardiac pacemaker present SHALONDA (obstructive sleep apnea) PAF (paroxysmal atrial fibrillation) Peripheral edema Prostate cancer Varicose veins of bilateral lower extremities with other complications Surgical History History of hydrocelectomy History of phacoemulsification of cataract of both eyes with intraocular lens implantation Hx of cardiac pacemaker Hx of colonoscopy Hx of cystoscopy Hx of parathyroidectomy Hx of subdural hematoma Hx of varicose vein stripping Family History Father Cancer Prostate cancer Mother Cancer, Onset Age: 85 Son No problems noted. Daughter No problems noted. Maternal Grandfather No problems noted. Maternal Grandmother No problems noted. Paternal Grandfather No problems noted. Paternal Grandmother No problems noted. Social History Housing: House Alcohol intake: current Alcohol intake frequency: holidays/special occasions only Alcohol type: wine Patient Tobacco Use Status: Never used Tobacco e-Cigarette/Vaping Use: Never Used Current occupational status: retired Cognitive needs: No Hearing needs: No Vision needs: Yes Physical Exam Vital Signs: BMI result Body Mass Index 32.8 Office Procedures Vascular Office Procedure Details Details: Diagnosis: Right Leg varicose veins with inflammation Procedure: Endovenous Ablation of the right Great Saphenous Vein and accessory saphenous vein with VenaSeal Closure System Anesthesia: Local infiltration 5 cc, Estimated Blood Loss: min Specimen: none Duplex ultrasound was used to map out the insufficient saphenous vein, and access was determined and marked on the overlying skin. The depth and diameter of the vein(s) to be treated was documented. The patient was placed supine on the procedure table and the leg was prepped and draped using sterile technique. Ultasound guidance was again used to localize the access site. 1% lidocaine was injected as a local anesthetic in the subcutaneous tissues at the target location in the GSV in the lower leg. Using ultrasound guidance, access was gained at this location with the 19 gauge thin walled access needle and followed by introduction of a short guidewire, location confirmed with ultrasound. A small, 3 mm incision was made at the access site to allow for introduction and placement of the 7 Fr x7cm introducer/dilator. The dilator and guidewire were removed. The 0.035 guidewire from the VenaSeal kit was then introduced and positioned at the saphenofemoral junction using ultrasound guidance. The 80 cm 7 Fr introducer sheath/dilator was positioned 5cm from the saphenofemoral junction. The guidewire and dilator were removed, and the remaining sheath was flushed with sterile saline, with the syringe remaining in place prior to the next steps. The cyanoacrylate adhesive was precisely primed into the 5 F delivery catheter and this catheter/syringe combination was attached within the dispenser gun. This assembly was introduced through the 7F sheath and positioned 5 cm caudal of the saphenofemoral junction under ultrasound guidance. The steps from the IFU were followed for dispensing amounts, locations and compression times, 2 aliquots proximally with 3 minutes of compression, and 1 aliquot every 3 cm distally with 30 sec of compression along the course of the vessel. Following the last injection and compression sequence, the catheter and introducer sheath were pulled out from the access site. Hemostasis was achieved with manual compression and an adhesive bandage was applied to the incision. Ultrasound confirmed complete coaptation and closure of the treated segments of the GSV, and the absence of any DVT at the saphenofemoral junction. Treatment time was approximately 4 minutes and the vein length treated was 15 cm. In a similar fashion and accessory vein which was more medial and distal was treated it. Seven Urdu sheath was introduced. The assembly was introduced through that 7 Urdu sheath. We brought it as proximally as it would go. Due to tortuosity and had to be stopped. We then delivered 1 aliquot every 3 cm with 30 seconds of compression following along the course of the vessel. Treatment time was 2 minutes and a treatment length of 10 cm The drapes were removed and the patient cleaned and prepared for discharge. Post op ultrasound check is scheduled for 48-72 hours and the patient was given written post-op instructions. 04365 - Endoven Ther Chem Adhes 1st 00930 - Chem Ashes, subsequent vein All charges added?: Procedure code (CPT) selection complete Assessment & Plan Assessment & Plan Orders: Orders US venous duplex LE RT 02/19/23 M79.604 - Pain in right leg Coding Level of Care Code Procedure Only CPT Codes Details - Vascular 3: 88412 - Endoven Ther Chem Adhes 1st ([id number])
== END 2023-02-16 09:33 | disposition home or self-care (01) ==
PROVIDERS: PCP Internal Medicine; Visit Provider Surgery Vascular Surgery
DX: I83.11 Varicose veins of right lower extremity with inflammation (principal)
CPT/HCPCS: 36482

== ENCOUNTER → 2023-02-16 08:17 | Outpatient (BNVA) | payer MEDICARE, OTHER, SELFPAY | PROVIDERS: PCP Internal Medicine; Visit Provider Surgery Vascular Surgery | DX: I83.11 Varicose veins of right lower extremity with inflammation (principal) | CPT/HCPCS: 36482 ==

== ENCOUNTER 2023-02-17 08:08 | Emergency (ER) | payer MEDICARE, OTHER, SELFPAY ==
[2023-02-17 08:14] VITALS: BP 107/58; PULSE 86; RESP 19; TEMP 36.6; O2SAT 98; BMI 32.1
--- NOTE | 2023-02-17 09:11 | ED_ITS ---
HPI - Wound/Laceration General Chief Complaint: Wound/Laceration Stated Complaint: Bleeding / Venaseal post procedure 02/16 Time Seen by Provider: 02/17/23 09:02 Source: patient and family Mode of arrival: ambulatory Limitations: no limitations History of Present Illness HPI narrative: 82-year-old male history of varicose vein, and patient had endovenous ablation of the right great saphenous vein with venaseal closure system yesterday. Patient is on Coumadin for atrial fibrillation his AC was held for 2 days supposed to resume today patient did not take his medication yet. Woke up this morning found that the dressing was soaked with blood. No CP, no SOB, no dizziness. Related Data Home Medications Medication Instructions Recorded Confirmed acetaminophen 650 mg 650 mg PO Q8H 10/22/20 02/13/23 tablet,extended release (Tylenol Arthritis Pain) multivitamin 1 tab PO DAILY 05/12/21 02/13/23 Previous Rx's Medication Instructions Recorded sildenafil 100 mg tablet 100 mg PO DAILY PRN sexual 03/16/21 activity 30 days #30 tabs amlodipine 2.5 mg tablet 2.5 mg PO DAILY #90 tabs 05/01/22 warfarin 5 mg tablet 5 mg PO DIRECTED #120 tabs 07/28/22 lisinopril 40 mg tablet 40 mg PO DAILY #90 tabs 08/04/22 furosemide 40 mg tablet (Lasix) 80 mg (2 x 40 mg) PO DAILY 90 days 09/04/22 #180 tabs zolpidem 10 mg tablet 10 mg PO ONCE SLEEP STUDY 2 days 12/04/22 #2 tabs tamsulosin 0.4 mg capsule 0.4 mg PO BEDTIME 90 days #90 caps 02/13/23 Allergies Allergy/AdvReac Type Severity Reaction Status Date / Time No Known Allergies Allergy Verified 02/17/23 08:14 Review of Systems 2 Review of Systems: All other systems are reviewed and are negative Constitutional: Reports as per HPI and Reports no additional constitutional complaints Eyes: Reports as per HPI and Reports no additional eye complaints Reports system reviewed and no additional complaints, except as documented Cardiovascular: Reports as per HPI and Reports no additional cardiovascular complaints Respiratory: Reports as per HPI and Reports no additional respiratory complaints Gastrointestinal: Reports as per HPI and Reports no additional gastrointestinal complaints Genitourinary: Reports no additional female genitourinary complaints Musculoskeletal: Reports no additional musculoskeletal complaints Skin/Breast: Reports system reviewed and no additional complaints, except as docu Psychiatric: Reports no additional psychiatric complaints Endocrine: Reports no additional endocrine complaints Hematologic/Lymphatic: Reports no additional hematologic/lymphatic complaints Allergic/Immunologic: Reports no additional allergic/immunologic complaints Reports system reviewed and no additional complaints, except as documented and Reports Abnormal speech present [facility] Past Medical History Medical History Nocturnal hypoxemia SHALONDA (obstructive sleep apnea) Peripheral edema Annual physical exam Left tennis elbow Essential hypertension PAF (paroxysmal atrial fibrillation) History of hydrocele Nocturia Bladder outlet obstruction Bladder cancer Prostate cancer Hyperlipidemia HTN (hypertension) 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 Daughter No problems noted. Maternal Grandfather No problems noted. Maternal Grandmother No problems noted. Paternal Grandfather No problems noted. Paternal Grandmother No problems noted. Social History Social History Housing: House Alcohol intake: current Alcohol intake frequency: holidays/special occasions only Alcohol type: wine Patient Tobacco Use Status: Never used Tobacco Smoked in Last 30 Days: No e-Cigarette/Vaping Use: Never Used Use of substances other than those prescribed or required for medical reasons: No Advance Directives: No Advance Directives Information Provided: Yes Current occupational status: retired Cognitive needs: No Hearing needs: No Vision needs: Yes Physical Exam 2 Vital Signs: Vital Signs: Last Vital Signs Temp 97.8 F 02/17/23 09:12 Pulse 69 02/17/23 09:12 Resp 16 02/17/23 09:12 BP 121/69 02/17/23 09:12 Pulse Ox 95 02/17/23 09:12 O2 Del Method Room Air 02/17/23 09:12 BMI result Body Mass Index 32.1 Vital signs have been reviewed and appear to be correct. Blood pressure elevated. Heart rate normal. Respiratory rate normal. Temperature normal. Oxygen saturation normal. Appearance: Alert. Oriented X3. No acute distress. Head: Normal external exam. Normocephalic. Atraumatic. No Diaz signs noted. No raccoon eyes noted Eyes: PERRLA. EOMI. Conjunctiva and sclera normal. Eyelids normal. ENT: TM's Normal. Pharynx normal. Uvula midline. Moist mucous membranes. No trismus noted. No drooling noted. No muffled voice noted. Neck: Normal inspection. Neck supple. FROM. No adenopathy. Thyroid Normal. No meningeal signs. No neck mass noted. CVS: Normal heart rate and rhythm. Heart sound normal. No murmurs noted. Pulses normal throughout. Respiratory: No respiratory distress. Painless inspiration. Breath sounds normal. No wheezes/rales/rhonchi noted. Chest nontender. No accessory muscle usage noted or decreased air movement noted. Abdomen: Soft and nontender. Bowel sounds normal in all 4 quadrants. No distention noted. No organomegaly noted. No visible injury noted. Back: No CVA tenderness. Full range of motion noted. Skin: Skin warm and dry. Normal skin color. Normal skin turgor. No rashes/lesions/lacerations noted. Extremities: 2 small surgical incision on the inner aspect of the right leg, the mid calf incision is dry and clean and intact the mid thigh incision is soaked with blood no active oozing or bleeding. Otherwise neurovascular exam is intact. Cranial nerve exam: II-XII are grossly intact No motor deficit. No sensory deficit. Reflexes normal. Course Course Course Narrative: 82-year-old male on AC therapy Coumadin was held today is the 3rd day, had venous ablation of the right great saphenous vein yesterday today with mild surgical incision bleeding. Will check coags/CBC. Pressure dressing was applied to the incision then will recheck in [address] Will discuss with Dr[address] Smith. Reevaluation(s) Reevaluation #1: Demetri bandage with mild pressure wrap applied to the right mid thigh, surgical side was observed with no bleeding. Patient was instructed to resume his Coumadin therapy. Labs showing mild thrombocytopenia which is patient's baseline, INR is 2.1 today. Time: 10:59 Medical Decision Making Differential Diagnosis Differential Diagnoses: The differential diagnosis associated with the presentation includes (Coagulopathy, thrombocytopenia, severe anemia, severe varicose vein bleeding.) Admission/Observation Consideration of admission/observation: Escalation of care including admission/observation considered Consult Healthcare Provider Management of the patient was discussed with: Face Hardener (Dr. Smith) Lab Data MDM Lab Attestation statement: I reviewed the patient's lab results. 02/17/23 09:26 Labs: Lab Results 02/17/23 Range/Units 09:26 WBC 7.6 (4.8-10.8) X10*3/uL RBC 4.08 L (4.60-5.80) X10*6/uL Hgb 12.5 L (14.0-18.0) g/dl Hct 36.9 L (42.0-52.0) % MCV 90.4 (80.0-98.0) fL MCH 30.6 (27.0-33.0) pg MCHC 33.9 (31.0-36.0) g/dl RDW 13.5 (11.0-16.0) % Plt Count 132 L D (160-400) X10*3/uL MPV 10.6 (9.4-12.4) fL Immature Gran % (Auto) 0.3 (0.0-0.4) % Neut % (Auto) 65.1 (45-73) % Lymph % (Auto) 20.5 (20-40) % [place] % (Auto) 13.4 H (2-11) % Eos % (Auto) 0.0 (0-4) % Baso % (Auto) 0.7 (0-2) % Lymph # (Auto) 1.6 (1.2-4.9) X10*3/uL [place] # (Auto) 1.0 (0.1-1.2) X10*3/uL Eos # (Auto) 0.0 (0.0-0.4) X10*3/uL Baso # (Auto) 0.1 (0.0-0.2) X10*3/uL Abs Immat Gran (auto) 0.02 (0.00-0.03) X10*3/uL Absolute Neuts (auto) 5.0 (2.0-8.3) x10*3/uL Absolute Nucleated RBC 0.000 (0.0-0.012) X10*3/uL Nucleated RBC % (auto) 0.0 (0.0-0.2) /100WBC PT 25.5 H (11.1-13.3) SEC INR 2.1 H (0.9-1.1) APTT 38.4 H (26.0-36.4) SEC Discharge Plan Discharge Clinical Impression: Bleeding from varicose veins of right lower extremity Patient Disposition: Home, Self-Care Additional Instructions: Resume Coumadin therapy at 2.5 mg Coumadin today and tomorrow then full year old schedule on Sunday. Keep the pressure dressing for 2 days then can take it off. Follow-up with Dr. Smith as scheduled. Prescriptions: No Action amlodipine 2.5 mg tablet 2.5 mg PO DAILY Qty: 90 3RF warfarin 5 mg tablet 5 mg PO DIRECTED Qty: 120 3RF Protocol: Dose Management Condition: Sunday (Week One) Dose/Route: 5 mg Instruction: 1 x 5 mg tablet Condition: Sunday Dose/Route: 5 mg Instruction: 1 x 5 mg tablet Condition: Sunday Dose/Route: 2.5 mg Instruction: 0.5 x 5 mg tablets Condition: Sunday Dose/Route: 2.5 mg Instruction: 0.5 x 5 mg tablets Condition: Dose/Route: 5 mg Instruction: 1 x 5 mg tablet Condition: Sunday Dose/Route: 5 mg Instruction: 1 x 5 mg tablet Condition: Sunday Dose/Route: 2.5 mg Instruction: 0.5 x 5 mg tablets Condition: Sunday (Week Two) Dose/Route: 5 mg Instruction: 1 x 5 mg tablet Condition: Sunday Dose/Route: 5 mg Instruction: 1 x 5 mg tablet Condition: Sunday Dose/Route: 5 mg Instruction: 1 x 5 mg tablet Condition: Sunday Dose/Route: 2.5 mg Instruction: 0.5 x 5 mg tablets Condition: Dose/Route: 5 mg Instruction: 1 x 5 mg tablet Condition: Sunday Dose/Route: 5 mg Instruction: 1 x 5 mg tablet Condition: Sunday Dose/Route: 2.5 mg Instruction: 0.5 x 5 mg tablets Protocol Text: Adjustment Start Date: Sunday02/13/23 INR Value: 3.2 INR Date: 02/13/23 Recheck Date: 02/20/23 lisinopril 40 mg tablet 40 mg PO DAILY Qty: 90 3RF acetaminophen [Tylenol Arthritis Pain] 650 mg tablet extended release 650 mg PO Q8H sildenafil 100 mg tablet 100 mg PO DAILY PRN (Reason: sexual activity) 30 Days Qty: 30 1RF Rx Instructions: administer 60 minutes before intended activity multivitamin Tablet 1 tab PO DAILY tamsulosin 0.4 mg capsule 0.4 mg PO BEDTIME 90 Days Qty: 90 3RF furosemide [Lasix] 40 mg tablet 80 mg PO DAILY 90 Days Qty: 180 3RF zolpidem 10 mg tablet 10 mg PO ONCE 2 Days Qty: 2 0RF Referrals: Minnie Lowe MD [Primary Care Provider] - Bryant Smith MD [Physician] - (As scheduled.)
[2023-02-17 09:12] VITALS: BP 121/69; PULSE 69; RESP 16; TEMP 36.6; O2SAT 95
--- NOTE | 2023-02-17 09:16 | PC.NURSE ---
pt a&ox3, vss, pt comes in d/t post vein procedure on right leg/knee yesterday. pt verbalizing no pain daron. pt resting comfortably in no apparent distress. call rubin placed within reach.
[2023-02-17 09:29] LABS: MANUAL DIFF FLAG NO
[2023-02-17 09:32] LABS: Basophils Absolute Auto 0.1 X10*3/uL (0.0-0.2); Basophils Percent Auto 0.7 % (0-2); Hematocrit 36.9 % (42.0-52.0); Hemoglobin 12.5 g/dl (14.0-18.0); Imm Gran Abs Auto 0.02 X10*3/uL (0.00-0.03); Imm Gran Pct Auto 0.3 % (0.0-0.4); Lymphocytes Absolute Auto 1.6 X10*3/uL (1.2-4.9); Lymphocytes Percent Auto 20.5 % (20-40); Mean Corpuscular HGB Conc 33.9 g/dl (31.0-36.0); Mean Corpuscular Hemoglobin 30.6 pg (27.0-33.0); Mean Corpuscular Volume 90.4 fL (80.0-98.0); Mean Platelet Volume 10.6 fL (9.4-12.4); Monocytes Percent Auto 13.4 % (2-11); Neutrophils Percent Auto 65.1 % (45-73); Platelet Count 132 X10*3/uL (160-400); Red Blood Count 4.08 X10*6/uL (4.60-5.80); Red Cell Distribution Width 13.5 % (11.0-16.0); White Blood Count 7.6 X10*3/uL (4.8-10.8)
[2023-02-17 09:36] LABS: INTERNATIONAL NORM RATIO 2.1 (0.9-1.1); Prothrombin Time 25.5 SEC (11.1-13.3)
[2023-02-17 09:39] LABS: Partial Thromboplastin Time 38.4 SEC (26.0-36.4)
--- NOTE | 2023-02-17 09:43 | PC.NURSE ---
pt currently sleeping daron. respirations even and unlabored. call rubin placed within reach.
--- NOTE | 2023-02-17 11:13 | PC.NURSE ---
pt provided w/ discharge instructions - pt awaiting ride/clothes from before being discharged.
== END 2023-02-17 11:50 | disposition home or self-care (01) ==
PROVIDERS: Emergency Provider Emergency Medicine; PCP Internal Medicine
DX: I83.891 Varicose veins of right lower extremity with other complications (principal); I10 Essential (primary) hypertension; E78.5 Hyperlipidemia, unspecified; C61 Malignant neoplasm of prostate; I48.0 Paroxysmal atrial fibrillation; Z79.01 Long term (current) use of anticoagulants; Z79.899 Other long term (current) drug therapy
CPT/HCPCS: 36415; 85025; 85610; 85730; 99283; 99284

== ENCOUNTER 2023-02-19 10:32 | Outpatient (REF) | payer MEDICARE, OTHER, SELFPAY ==
--- NOTE | ~2023-02-19 | US_ITS ---
EXAMINATION: WITH DOPPLER OF RIGHT LOWER EXTREMITY CLINICAL INFORMATION: Status post Venaseal procedure on 02/16/2023. COMPARISON: Duplex from 08/25/2022. TECHNIQUE: Color flow triplex imaging and compression Doppler were performed as well as superficial ultrasound with Doppler. FINDINGS: TRIPLEX SCANNING OF RIGHT LOWER EXTREMITY: Respiratory variation, normal compression and augmented flow are noted throughout the lower extremity. The visualized common femoral vein, femoral vein, profunda femoral vein, popliteal vein and the calf veins show no evidence of deep venous thrombosis. There is no evidence of Linares's cyst. SUPERFICIAL ULTRASOUND WITH DOPPLER OF RIGHT LOWER EXTREMITY: The right great saphenous vein is occluded from the access site to 3.8 before the saphenofemoral junction. There is no extension of thrombus into the deep system. Multiple residual subcutaneous varicose veins are seen which are patent. US/US venous duplex LE RT IMPRESSION: 1. Normal triplex scan of the right lower extremity without evidence of deep venous thrombosis. 2. Excellent appearance status post Venaseal of the right great saphenous vein.
== END 2023-02-19 10:33 | disposition home or self-care (01) ==
LOC: HO.HMGCX 10:32
PROVIDERS: PCP Internal Medicine; Visit Provider Surgery Vascular Surgery
DX: M79.604 Pain in right leg (principal)
CPT/HCPCS: 93971

== ENCOUNTER 2023-02-22 11:15 | Outpatient (AMB) | payer MEDICARE, OTHER, SELFPAY ==
[2023-02-22 11:27] LABS: Prothrombin Time Whole Bld POC 16.6 sec (11.1-13.5); ~PT, ~INR - Anti Coag Clinic 1.4 (0.9-1.1)
--- NOTE | 2023-02-22 11:34 | MHC.OFFVISCO ---
Intake Intake Visit Reasons: Anticoagulation Allergies No Known Allergies Allergy (Verified 02/22/23 11:19) Medication List - Last Reconciled 02/22/23 by Juliana Martinez, RN acetaminophen ER (Tylenol Arthritis Pain) 650 mg PO Q8H amlodipine 2.5 mg PO DAILY furosemide (Lasix) 80 mg (2 x 40 mg) PO DAILY 90 days lisinopril 40 mg PO DAILY multivitamin 1 tab PO DAILY sildenafil 100 mg PO DAILY PRN 30 days tamsulosin 0.4 mg PO BEDTIME 90 days warfarin 5 mg See Protocol PO DIRECTED zolpidem 10 mg PO ONCE 2 days Nursing Note Amb to [facility] feeling OK was in ED 02/17 after bleeding from veno seal procedure of 02/16, sts he woke up on Sunday bleeding from one of the sites in ED INR 2.1, instructed to hold warfarin 02/17 and decrease dose to 2.5mg (vs 5mg) on 02/18 and 02/19 bleeding stopped in ED Medications and supplements reviewed No other changes in health, diet, medications, or supplements Denies any unusual signs and symptoms of bruising, bleeding, no further bleeding Denies any new Chest pain, SOB, or clotting INR: 1.4 critical below therapeutic range Nutritional guidance given: no greens x 2 days then balance greens and reds in diet Dose: increase dose today to 7.5mg, usual 5mg tomorrow, increase to 5mg on Sunday then resume usual dosing pattern Sunday (5mg x 5 days 2.5mg x 2 days); F/U INR: 1 week Patient verbalizes understanding of instructions given with accurate read back/ teach back of dosing critical INR 1.4 reported to [facility] at [facility], recent medical history, ED, dosing from ED, dosing plan for weekend and F/U Anti-Coag Initial Assessment Social Hx Patient Tobacco Use Status: Never used Tobacco alcohol intake: current Alcohol intake frequency: holidays/special occasions only Coding Level of Care Code Est Patient Level 1 Diagnoses Current use of anticoagulant therapy Z79.01 Time Spent (min) 20 Assessment & Plan Assessment & Plan (1) Current use of anticoagulant therapy: Code(s): Z79.01 - [facility] (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
== END 2023-02-22 12:00 | disposition home or self-care (01) ==
LOC: HO.ACS 11:15
PROVIDERS: PCP Internal Medicine; Visit Provider Internal Medicine
DX: Z79.01 Long term (current) use of anticoagulants (principal)

== ENCOUNTER → 2023-02-22 11:15 | Outpatient (BNVA) | payer MEDICARE, OTHER, SELFPAY | PROVIDERS: PCP Internal Medicine; Visit Provider Internal Medicine | DX: I48.92 Unspecified atrial flutter (principal); Z79.01 Long term (current) use of anticoagulants; Z51.81 Encounter for therapeutic drug level monitoring | CPT/HCPCS: 85610; 99211 ==

== ENCOUNTER 2023-02-22 11:51 | Outpatient (REF) | payer MEDICARE, OTHER, SELFPAY ==
--- NOTE | 2023-02-23 10:09 | MHC.AU.HA3 ---
Hearing Instrument Follow-Up- Binaural Date of Visit: 02/23/23 Right Ear: Make, Model, Color, Serial Number: Oticon More 2 miniRITE-T SN: [id number] Color: Silver Freight Car Cleaner Repair Warranty: 07/02/2025 Freight Car Cleaner Loss and Damage Warranty: 07/02/2025 [facility] Service Plan: OPTED OUT Battery Size: 312 Acute Care Certified Nursing Assistant/Slim Tube: 2/85 Earmold/Dome/CShell/SlimTip:8mm double de la rosa dome (no retention tail) Type of Wax Guard: miniFit ProWax Dispensed By: [facility] Date of Fittin06/13/2022 Left Ear: Make, Model, Color, Serial Number: Oticon More 2 miniRITE-T SN: [id number] Color: Silver Freight Car Cleaner Repair Warranty: 07/02/2025 Freight Car Cleaner Loss and Damage Warranty: 07/02/2025 [facility] Service Plan: OPTED OUT Battery Size: 312 Acute Care Certified Nursing Assistant/Slim Tube: 2/85 Earmold/Dome/CShell/SlimTip: 8mm double de la rosa dome (no retention tail) Type of Wax Guard: miniFit ProWax Dispensed By: [facility] Date of Fittin06/13/2022 Follow-Up Summary: Jung dropped off his right hearing aid reporting that it is . Upon inspection, wax guard was plugged. Cleaned hearing aid. Vacuumed microphones. Replaced dome and wax guard. A listening check demonstrated that the hearing aid is in good working order. Recommendations: Hearing instrument follow-up or maintenance as needed. Please contact our clinic with any questions or concerns. Diagnosis Code(s): Primary Diagnosis: H90.3 Bilateral Sensorineural Hearing Loss Signature: Provider: Johnie Chinchilla, [facility]
== END 2023-02-22 11:52 | disposition home or self-care (01) ==
LOC: HO.HAP 11:51
PROVIDERS: Visit Provider Internal Medicine
DX: Z13.89 Encounter for screening for other disorder (principal)
CPT/HCPCS: 85610; 99211

== ENCOUNTER 2023-02-26 12:12 | Outpatient (REF) | payer SELFPAY | END 2023-02-26 12:13 | disposition home or self-care (01) | LOC: HO.HAP 12:12 | PROVIDERS: Visit Provider Internal Medicine | DX: Z46.1 Encounter for fitting and adjustment of hearing aid (principal); H90.3 Sensorineural hearing loss, bilateral | CPT/HCPCS: 92592 ==

== ENCOUNTER 2023-03-01 10:00 | Outpatient (AMB) | payer MEDICARE, OTHER, SELFPAY ==
--- NOTE | 2023-03-01 10:07 | MHC.OFFVIS ---
Intake Vital Signs 03/01/23 10:07 Height 5 ft 4 in Intake Visit Reasons: 2 week follow up right venaseal Intake Note: 2 week follow up Right Venaseal 02/16/2023, pt states that he had bleeding at home after procedure and ended up going to the ED. Accompanied by: Self / Same As Patient Allergies No Known Allergies Allergy (Verified 03/01/23 11:24) HPI 2 week follow up right venaseal HPI Details Very pleasant 82-year-old gentleman presents for follow-up regarding right great saphenous vein Cyanoacralate ablation. He did relatively well postprocedure. He did have 1 bleeding episode after the procedure that did bring him to the emergency room. It was controlled with direct pressure. He has done well subsequent to that. Of note postprocedure ultrasound was negative for DVT. He is concerned about large cluster varicosities in particular the right calf. 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 Daughter No problems noted. Maternal Grandfather No problems noted. Maternal Grandmother No problems noted. Paternal Grandfather No problems noted. Paternal Grandmother No problems noted. Social History Housing: House Alcohol intake: current Alcohol intake frequency: holidays/special occasions only Alcohol type: wine Patient Tobacco Use Status: Never used Tobacco e-Cigarette/Vaping Use: Never Used Current occupational status: retired Cognitive needs: No Hearing needs: No Vision needs: Yes Review of Systems Const Reports as per HPI ENT Reports no additional complaints Card Denies chest pain, Denies chest pain at rest and Denies chest pain with activity Resp Denies chest congestion and Denies cough GI Reports no additional complaints Musc Details: pain over varicosities, aching of lower extremities, swelling, cramping, heaviness and tiredness, itching Denies abnormal gait Skin/Breast Reports pruritus and Denies wounds Neuro Reports no additional complaints and Denies abnormal gait Psych Denies no additional complaints Physical Exam Const General: cooperative, healthy appearing and comfortable Orientation/consciousness: oriented to person, oriented to place and oriented to time Neck Carotids: no bruits Chest Chest palpation & inspection: normal inspection of the chest and normal palpation of entire chest wall Resp Effort & Inspection: normal respiratory effort and able to speak in complete sentences Cardio Rate: regular rate Heart sounds: S1 normal heart sound present and S2 normal heart sound present Peripheral pulses: Peripheral pulses 2+ throughout GI Inspection: Yes normal to inspection Skin Other: +2 edema, large rope-like varicosities greater than 4 mm right thigh and calf CEAP Classification C4 - skin color changes Ep - Etiology Primary As - superficial veins P - reflux General skin exam: dry skin Neuro General: oriented to person, oriented to place and oriented to time Extrem Right lower extremity: full ROM, normal capillary refill and edema Left lower extremity: full ROM, normal capillary refill and edema Psych Mental Status: mental status grossly normal Assessment & Plan Assessment & Plan (1) Varicose veins of right lower extremity with inflammation: Comment: 02/16/2023 right great saphenous vein Cyanoacralate ablation Code(s): I83.11 - Varicose veins of right lower extremity with inflammation Plan: This patient has varicose veins with inflammation. They continue to be a source of discomfort for the patient. The patient has tried conservative treatment with compression, leg elevation and exercise program for over 3 months time. They have been compliant with all treatment. This has provided minimal relief for the patient. I do not anticipate this course of treatment will alter the underlying etiology. The patient has been scheduled for lower extremity venous treatment inclusive of --- right leg microphlebectomy. Risks, benefits, and complications of this procedure has been discussed in detail with the patient including but not limited to bleeding, infection, and the development of a DVT. The patient has demonstrated a clear understanding and has consented. We will schedule the patient as soon as possible. Thank you for allowing us to participate in this patient's care. If there are any questions or concerns please do not hesitate to contact us. Coding Level of Care Code Est Pt Level 4 (26169) Diagnoses Varicose veins of right lower extremity with inflammation I83.11
== END 2023-03-01 10:42 | disposition home or self-care (01) ==
PROVIDERS: PCP Internal Medicine; Visit Provider Surgery Vascular Surgery
DX: I83.11 Varicose veins of right lower extremity with inflammation (principal)
CPT/HCPCS: 99214

== ENCOUNTER → 2023-03-01 10:00 | Outpatient (BNVA) | payer MEDICARE, OTHER, SELFPAY | PROVIDERS: PCP Internal Medicine; Visit Provider Surgery Vascular Surgery | DX: I83.11 Varicose veins of right lower extremity with inflammation (principal); I48.92 Unspecified atrial flutter; Z51.81 Encounter for therapeutic drug level monitoring; Z79.01 Long term (current) use of anticoagulants | CPT/HCPCS: 85610; 99212 ==

== ENCOUNTER 2023-03-01 11:22 | Outpatient (AMB) | payer MEDICARE, OTHER, SELFPAY ==
[2023-03-01 11:31] LABS: Prothrombin Time Whole Bld POC 31.8 sec (11.1-13.5); ~PT, ~INR - Anti Coag Clinic 2.6 (0.9-1.1)
--- NOTE | 2023-03-01 11:33 | MHC.OFFVISCO ---
Intake Intake Visit Reasons: Anticoagulation Allergies No Known Allergies Allergy (Verified 03/01/23 11:24) Medication List - Last Reconciled 03/01/23 by Juliana Martinez, RN acetaminophen ER (Tylenol Arthritis Pain) 650 mg PO Q8H amlodipine 2.5 mg PO DAILY furosemide (Lasix) 80 mg (2 x 40 mg) PO DAILY 90 days lisinopril 40 mg PO DAILY multivitamin 1 tab PO DAILY sildenafil 100 mg PO DAILY PRN 30 days tamsulosin 0.4 mg PO BEDTIME 90 days warfarin 5 mg See Protocol PO DIRECTED zolpidem 10 mg PO ONCE 2 days Nursing Note Amb to [facility] feeling well Medications and supplements reviewed No changes in health, diet, medications, or supplements Denies any unusual signs and symptoms of bruising, bleeding Denies any new Chest pain, SOB, or clotting INR: 2.6 now in therapeutic range Nutritional guidance given: balance greens and reds in diet Dose: continue usual dosing; 2.5mg x 2 days and 5mg x 5 days F/U INR: 4 weeks Patient verbalizes understanding of instructions given with accurate read back/ teach back of dosing at very end of visit after all dosing pt then sts I will be holding the warfarin for a few days as having more work done on the leg March 13 Sts it all just happened today, going to OR on 03/13 for next procedure, I guess I should of told you that first adjusted warfarin dosing sheet, reviewed with pt LD warfarin 03/07 then hold, resume warfarin on 03/13 after procedure, take 5mg daily until Sunday usual 2.5mg, no greens until INR check 03/22, pt left chart review indicated SSS on 03/12, review of draft from Dr Smith no instructions for warfarin at present urgent compose note sent regarding instructions and that we will call pt with any update in the instructions as instructions given today based on date given by pt 03/13 Anti-Coag Initial Assessment Social Hx Patient Tobacco Use Status: Never used Tobacco alcohol intake: current Alcohol intake frequency: holidays/special occasions only Coding Level of Care Code Est Patient Level 2 Diagnoses Current use of anticoagulant therapy Z79.01 Time Spent (min) 30 Assessment & Plan Assessment & Plan (1) Current use of anticoagulant therapy: Code(s): 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
== END 2023-03-01 16:25 | disposition home or self-care (01) ==
LOC: HO.ACS 11:22
PROVIDERS: PCP Internal Medicine; Visit Provider Internal Medicine
DX: Z79.01 Long term (current) use of anticoagulants (principal)

== ENCOUNTER → 2023-03-07 14:00 | Outpatient (BNVA) | payer MEDICARE, OTHER, SELFPAY | PROVIDERS: PCP Internal Medicine; Visit Provider Internal Medicine ==

== ENCOUNTER 2023-03-13 11:37 | Outpatient (AMB) | payer MEDICARE, OTHER, SELFPAY ==
--- NOTE | 2023-03-13 11:49 | A.OFFVIS_ITS ---
Intake Intake Visit Reasons: 1Y PSA(set) Intake Note: Patient is Present for Follow Up PSA Urology Medication: TAMSULOSIN, SILDENAFIL Antibiotic Allergies: NKA Blood Thinners: NO Pharmacy:[facility] Compliants:OUT OF SILDENAFIL Allergies No Known Allergies Allergy (Verified 03/01/23 11:24) Medication List - Last Reconciled 03/13/23 by Kalia Tavera MD acetaminophen ER (Tylenol Arthritis Pain) 650 mg PO Q8H amlodipine 2.5 mg PO DAILY furosemide (Lasix) 80 mg (2 x 40 mg) PO DAILY 90 days lisinopril 40 mg PO DAILY multivitamin 1 tab PO DAILY sildenafil 100 mg PO DAILY PRN 30 days tamsulosin 0.4 mg PO BEDTIME 90 days warfarin 5 mg See Protocol PO DIRECTED zolpidem 10 mg PO ONCE 2 days HPI HPI Comments History of Present Illness Details Monica is a pleasant male. He is a patient of Dr. Lowe. He is seen for the following urologic conditions - prostate cancer - bladder cancer - erectile dysfunction PSA remains well controlled Continues with cystoscopy and checks at [facility] May check next year in office with cystoscopy Prostate cancer brachytherapy 2015 [facility] Prostate cancer diagnosed by Dr. Joe Initial therapy brachytherapy at [facility] 2015 PSA well controlled subsequently Had mild associated urgency frequency responsive to Flomax Occasional nocturia PSA 03/01 0.1, 03/02 0.1, 01/31 0.1 Continue surveillance Bladder cancer TURBT 2014 and 2015 Superficial bladder cancer diagnosed by Dr. Joe Management with TURBT Associated therapy immunotherapy induction at [facility] Check cystoscopies performed at 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 Daughter No problems noted. Maternal Grandfather No problems noted. Maternal Grandmother No problems noted. Paternal Grandfather No problems noted. Paternal Grandmother No problems noted. Social History Housing: House Alcohol intake: current Alcohol intake frequency: holidays/special occasions only Alcohol type: wine Patient Tobacco Use Status: Never used Tobacco e-Cigarette/Vaping Use: Never Used Current occupational status: retired Cognitive needs: No Hearing needs: No Vision needs: Yes Review of Systems Const Denies chills and Denies fever(s) Card Reports no additional complaints and Denies syncope Resp Denies cough GI Denies abdominal pain and Denies heartburn Reports as per HPI and Denies change in libido Neuro Denies syncope Psych Denies change in libido Endo Denies change in libido Physical Exam Const General: cooperative, healthy appearing, comfortable and no acute distress Orientation/consciousness: patient oriented x3 HEENT Face and sinus: Yes normal facial exam Mouth: moist mucous membranes Neck Neck: Yes normal visual inspection, Yes full ROM and Yes trachea midline Chest Chest palpation & inspection: normal inspection of the chest Resp Effort & Inspection: normal respiratory effort, able to speak in complete sentences and no respiratory distress GI Inspection: Yes normal to inspection Back/Spine/Pelvis Cervical Spine: normal cervical lordosis Thoracic/Lumbar Spine: thoracic and lumbar spine normal to inspection Skin General skin exam: no rashes or lesions noted Neuro General: patient oriented x3, gait normal, tone normal and moves all extremities Extrem General: Yes normal to inspection and Yes capillary refill normal Assessment & Plan Assessment & Plan (1) Prostate cancer: Comment: s/p RTX seed Code(s): C61 - Malignant neoplasm of prostate (2) Bladder outlet obstruction: Code(s): N32.0 - Bladder-neck obstruction Plan Twelve month follow-up cystoscopy with PSA Orders: Orders Prostate Specific Antigen 364 Days C61 - Malignant neoplasm of prostate Patient Instructions: Imaging studies, laboratory and physical exam results were discussed and reviewed in detail. No major barriers to patient understanding were identified. An opportunity to ask questions regarding the treatment plan was provided. All questions were answered. The patient expressed understanding and agreement with the above treatment plan. The patient is aware they should contact our office by phone for worsening of their current condition or the appearance of new urologic symptoms. Compliance is encouraged with any medications and followup testing that is ordered. It is a privilege to participate in the urologic care of your patient. If you have any questions or concerns regarding treatment for the above conditions, or other urologic issues, please do not hesitate to contact me. The office telephone contact is [phone]. This note is constructed using voice recognition software. While every effort has been made to ensure accuracy salad counter attendant errors may have been included. Yours sincerely, Dr Kalia Tavera MD, [facility] - Urology Providers of Expert, Compassionate Care for the Genitourinary System Coding Level of Care Code Est Pt Level 4 (59463) Diagnoses Prostate cancer C61 Bladder outlet obstruction N32.0
== END 2023-03-13 12:20 | disposition home or self-care (01) ==
PROVIDERS: PCP Internal Medicine; Visit Provider Urology
DX: C61 Malignant neoplasm of prostate (principal); N32.0 Bladder-neck obstruction
CPT/HCPCS: 99213

== ENCOUNTER → 2023-03-13 11:37 | Outpatient (BNVA) | payer MEDICARE, OTHER, SELFPAY | PROVIDERS: Visit Provider Urology | DX: C61 Malignant neoplasm of prostate (principal); N32.0 Bladder-neck obstruction; N52.9 Male erectile dysfunction, unspecified; Z85.51 Personal history of malignant neoplasm of bladder | CPT/HCPCS: 99212 ==

== ENCOUNTER 2023-04-02 07:40 | Day surgery (SDC) | payer MEDICARE, OTHER, SELFPAY ==
[2023-03-29 15:18] VITALS: BMI 33.5
[2023-04-02] VITALS (14 sets, daily range): BP systolic 99–117; BP diastolic 54–72; PULSE 69–71; RESP 16–20; TEMP 36.1–36.2; O2SAT 92–99
[2023-04-02 08:21] LABS: Hematocrit 38.9 % (42.0-52.0); Hemoglobin 12.8 g/dl (14.0-18.0); Mean Corpuscular HGB Conc 32.9 g/dl (31.0-36.0); Mean Corpuscular Hemoglobin 30.6 pg (27.0-33.0); Mean Corpuscular Volume 93.1 fL (80.0-98.0); Mean Platelet Volume 10.6 fL (9.4-12.4); Platelet Count 152 X10*3/uL (160-400); Red Blood Count 4.18 X10*6/uL (4.60-5.80); Red Cell Distribution Width 12.3 % (11.0-16.0); White Blood Count 6.9 X10*3/uL (4.8-10.8)
[2023-04-02 08:28] LABS: INTERNATIONAL NORM RATIO 1.2 (0.9-1.1); Prothrombin Time 14.6 SEC (11.1-13.3)
[2023-04-02 08:50] LABS: Anion Gap 11 (12-20); Blood Urea Nitrogen 38 mg/dL (9-16); Calcium 9.3 mg/dL (8.4-10.2); Carbon Dioxide 25 mmol/L (22-29); Chloride 109 mmol/L (96-108); Creatinine Clr Calc Pharmacy 44.7; Estimated Glomerular Filt Rate 58; Glucose Random 97 mg/dL (60-115); Sodium 141 mmol/L (135-145)
[2023-04-02] MEDS: Lactated Ringers 1,000 ML 50 ML IVCONT (09:14)
--- NOTE | 2023-04-02 10:05 | P.CONAN_ITS ---
Documented by User: Ange Mcclain NP 03/30/23 08:30 HPI - Anesthesia Eval Consult details Narrative: 82yo M for Right Micro Phlebectomy Pacer in situ Warfarin for persistant afib Follows [facility] [place] cardiology. Last office visit 08/2022 with bilat LE and scrotal swelling. Improved on increase lasix dose. 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 (Acute) Essential hypertension (Acute) PAF (paroxysmal atrial fibrillation) (Acute) Ascending aorta dilatation (Acute) Nocturia (Acute) Bladder outlet obstruction (Acute) Bladder cancer (Acute) Prostate cancer (Acute) Hyperlipidemia (Acute) HTN (hypertension) (Acute) Normally functioning cardiac pacemaker present (Acute) Current use of anticoagulant therapy (Acute) Varicose veins of right lower extremity with inflammation (Acute) Past Medical History Medical History (Updated 03/30/23 @ 11:22 by Nydia Banks RN) CHF (congestive heart failure) Nocturnal hypoxemia SHALONDA (obstructive sleep apnea) Peripheral edema Annual physical exam Left tennis elbow Essential hypertension PAF (paroxysmal atrial fibrillation) History of hydrocele Nocturia Bladder outlet obstruction Bladder cancer Prostate cancer Hyperlipidemia HTN (hypertension) 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 Daughter No problems noted. Maternal Grandfather No problems noted. Maternal Grandmother No problems noted. Paternal Grandfather No problems noted. Paternal Grandmother No problems noted. Surgical History Surgical History History of hydrocelectomy Hx of varicose vein stripping Hx of subdural hematoma History of phacoemulsification of cataract of both eyes with intraocular lens implantation Hx of cardiac pacemaker Hx of colonoscopy Hx of parathyroidectomy Hx of cystoscopy Social History Social History Housing: House Are you a primary anesthesiologist and critical care to a significant other at home: No Do you presently have visiting nurse or other home services: No Alcohol intake: current Alcohol intake frequency: holidays/special occasions only Alcohol type: wine Patient Tobacco Use Status: Never used Tobacco e-Cigarette/Vaping Use: Never Used Use of substances other than those prescribed or required for medical reasons: No Have you been hit, kicked, punched, or otherwise hurt by someone within the past year? If so, by whom?: No Are you DNR?: No Advance Directives: No Advance Directives Information Provided: Yes Advance Directives on File: No Recently lost weight without trying: No Current occupational status: retired Cognitive needs: No Hearing needs: No Vision needs: Yes Meds Allergies Allergy/AdvReac Type Severity Reaction Status Date / Time No Known Allergies Allergy Verified 04/02/23 08:10 Home Medications Medication Instructions Recorded Confirmed Last Taken Type acetaminophen 650 mg 650 mg PO Q8H 10/22/20 04/02/23 Unknown History tablet,extended release (Tylenol Arthritis Pain) multivitamin 1 tab PO DAILY 05/12/21 04/02/23 Unknown History Exam Exam Date and Time: March 30, 2023822 Height,Weight and Vital Signs: Height 5 ft 3 in Weight 85.729 kg Pertinent Lab Results Pertinent Lab Results: Laboratory Tests 01/25/23 02/17/23 10:52 09:26 WBC 7.6 Hgb 12.5 L Hct 36.9 L Plt Count 132 L D Sodium 141 Potassium 4.4 Chloride 106 Carbon Dioxide 27 BUN 46 H Creatinine 1.38 Narrative Narrative: Cardiac Device Check 08/2022 Details: Pacemaker interrogated today. Dual-chamber device, programmed DDDR mode. Battery status more than 3 years. Normal lead parameters. 20 recorded events. One episode of NSVT, 6 seconds. 19 atrial high rate events, longest 12 minutes. Probable atrial tachycardia. Less likely flutter. Pacing in the atrium 90%. Pacing the ventricle 96%. EKG 08/2022 Details: EKG with ventricular paced rhythm at 68/Min; possible atrial pacing versus sensing but not clear. PVCs. ECHO 08/2022 Conclusions: - 1. Normal LV systolic function with suggestion of elevated LVEDP 2. Moderately dilated right-sided chambers with mildly reduced RV systolic function 3. Mildly dilated left atrium 4. Mild aortic and mitral regurgitation 5. Moderately elevated retic a systolic pressure with significant elevated right atrial pressures 6. Mildly dilated ascending aorta at 4.3 cm 7. 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 Daughter No problems noted. Maternal Grandfather No problems noted. Maternal Grandmother No problems noted. Paternal Grandfather No problems noted. Paternal Grandmother No problems noted. Family history of problems with anesthesia: No Surgical History Surgical History History of hydrocelectomy Hx of varicose vein stripping Hx of subdural hematoma History of phacoemulsification of cataract of both eyes with intraocular lens implantation Hx of cardiac pacemaker Hx of colonoscopy Hx of parathyroidectomy Hx of cystoscopy History of Problems with Anesthesia: No Social History Social History Housing: House Are you a primary anesthesiologist and critical care to a significant other at home: No Do you presently have visiting nurse or other home services: No Alcohol intake: current Alcohol intake frequency: holidays/special occasions only Alcohol type: wine Patient Tobacco Use Status: Never used Tobacco e-Cigarette/Vaping Use: Never Used Use of substances other than those prescribed or required for medical reasons: No Have you been hit, kicked, punched, or otherwise hurt by someone within the past year? If so, by whom?: No Are you DNR?: No Advance Directives: No Advance Directives Information Provided: Yes Advance Directives on File: No Recently lost weight without trying: No Current occupational status: retired Cognitive needs: No Hearing needs: No Vision needs: Yes Meds Allergies Allergy/AdvReac Type Severity Reaction Status Date / Time No Known Allergies Allergy Verified 04/02/23 08:10 Home Medications Medication Instructions Recorded Confirmed Last Taken Type acetaminophen 650 mg 650 mg PO Q8H 10/22/20 04/02/23 Unknown History tablet,extended release (Tylenol Arthritis Pain) multivitamin 1 tab PO DAILY 05/12/21 04/02/23 Unknown History Exam Exam Date and Time: April 02, 2023 1002 Height,Weight and Vital Signs: Height 5 ft 3 in Weight 85.729 kg Vital Signs Temperature 97.2 F 04/02/23 08:07 Pulse Rate 69 04/02/23 08:07 Respiratory Rate 16 04/02/23 08:07 Blood Pressure 115/66 04/02/23 08:07 Pulse Oximetry 97 04/02/23 08:07 Oxygen Delivery Method Room Air 04/02/23 08:07 Temperature 97.2 F 04/02/23 08:07 Pulse Rate 69 04/02/23 08:07 Respiratory Rate 16 04/02/23 08:07 Blood Pressure 115/66 04/02/23 08:07 Pulse Oximetry 97 04/02/23 08:07 Oxygen Delivery Method Room Air 04/02/23 08:07 Airway Mallampati Class: II TM Dist: <=3cm Neck ROM: Limited Loose/Missing/Broken Teeth: No (patient denies) Heart: S1S2 Lungs: CTAB Assessment and Plan Assessment Anesthesia Assessment: Anesthesia Plan Discussed and Chart Reviewed Final Anesthetic Review Family History of Problems with Anesthesia: No History of Problems with Anesthesia: No NPO: Yes ASA Class: III Final Preanesthetic Review: No Changes in Pt Med Stat, Meds/Allgs Chart Reviewed and Consent Obtained/Reviewed Patient Risk: Intermediate Procedure Risk: Low Anesthetic Plan Anesthetic Plan: GA and Agree w/ Assess. and Plan Disposition: Standard PACU
--- NOTE | 2023-04-02 10:05 | MHC.SHP ---
Pre-Procedural Eval Section A Date of Service: 04/02/23 The patient is an INPATIENT: No Changes since office visit: Yes Patient answered all questions The History & Physical has been completed within 30 days and I have reviewed it.: No Section B Chief Complaint: Varicose veins of right lower extremity with infla Allergies: Allergies Allergy/AdvReac Type Severity Reaction Status Date / Time No Known Allergies Allergy Verified 04/02/23 08:10 Plan I have reviewed the history and physical and performed a pertinent physical examination on my patient. No changes have occurred unless specified. Time Spent With Patient Time: Total time managing care of this patient today ____ minutes.
--- NOTE | 2023-04-02 11:35 | P.OP_ITS ---
Operative Note Operative Note Date of Service: 04/02/23 Narrative: Operative note by [facility] Preoperative diagnosis: Right leg varicose veins with inflammation Postoperative diagnosis: Same Procedure:1. Right leg microphlebectomy (22) 2. Ligation of venous cluster x3 Surgeon:Bryant Smith M.D. Reptile Farmer: Alyssia Anesthesia: General Specimens: 1 Drains: None Estimated blood loss: 100 mL Indications: 82-year-old gentleman with a history of severe varicosities presents for right lower extremity microphlebectomy. Of note he has had prior office venous ablation is. He now presents for operative phlebectomy. The patient has signed the informed consent after reviewing risks, complications, benefits, and alternatives previously discussed with the patient. The patient was given the opportunity to ask any additional questions or voice any concerns. All questions were answered to the patient's satisfaction. Procedure in detail: Varicose veins were marked in the standing position on the right leg and the patient was then placed in the supine position. The right lower extremity was prepared and draped to allow knee flexion in the sterile field. The patient had large superficial varicose veins with significant symptoms of pain. It was there fore determined to perform microphlebectomies of the clusters of varicose veins. The patient had bulging varicose veins which were previously marked in the standing position. A small stab incision was made longitudinally directly overlying the varicose vein in the calf and the varicose vein was grasped with a hemostat aided by a vein hook. It was then dissected as far proximally and distally as possible and avulsed. A total of 22 stab incisions were made and the procedure of stab phlebectomies was repeated 22 times. In addition there was significant medial thigh clusters. Three individual c lusters had to be identified and ligated at the base with a 3-0 Polysorb. Residual varicosities were removed. Once again this was done in 3 separate locations. Hemostasis was checked and stab incision sites were closed with steri-strips and sterile dressing was given with gauze and krilex wrap followed by an davie bandage. Post-Op instructions were given and a follow-up appointment was recommended. This note is constructed using voice recognition software. While every effort has been made to ensure accuracy, interior design coordinator errors may have been included. Thank you for allowing me to participate in the care of your patient. Yours sincerely, Bryant Smith MD, FACS, R.P.V.I.
[2023-04-02] MEDS: fentaNYL citrate/PF 100 MCG/2 ML VIAL 25 MCG IVPUSH ×3 (11:42→12:22)
[2023-04-02] MEDS: Acetaminophen 325 MG TABLET 650 MG PO (11:42)
== END 2023-04-02 13:21 | disposition home or self-care (01) ==
PROVIDERS: PCP Internal Medicine; Visit Provider Surgery Vascular Surgery
PROC: (CPT 37766; principal; 2023-04-02 09:10)
DX: I83.11 Varicose veins of right lower extremity with inflammation (principal); M79.661 Pain in right lower leg; I10 Essential (primary) hypertension; I48.0 Paroxysmal atrial fibrillation; Z95.0 Presence of cardiac pacemaker; G47.33 Obstructive sleep apnea (adult) (pediatric); C61 Malignant neoplasm of prostate; C67.9 Malignant neoplasm of bladder, unspecified; Z79.01 Long term (current) use of anticoagulants; Z79.899 Other long term (current) drug therapy
CPT/HCPCS: 37766; 37785; 36415; 80048; 85027; 85610; 88304; J0690; J2371; J2405; J2795; J3010

== ENCOUNTER → 2023-04-02 07:40 | Outpatient (BNV) | payer MEDICARE, OTHER, SELFPAY | PROVIDERS: PCP Internal Medicine; Visit Provider Surgery Vascular Surgery | DX: I83.11 Varicose veins of right lower extremity with inflammation (principal) | CPT/HCPCS: 37766; 37785 ==

== ENCOUNTER 2023-04-05 11:07 | Outpatient (AMB) | payer MEDICARE, OTHER, SELFPAY ==
[2023-04-05 11:13] LABS: Prothrombin Time Whole Bld POC 13.6 sec (11.1-13.5); ~PT, ~INR - Anti Coag Clinic 1.1 (0.9-1.1)
--- NOTE | 2023-04-05 11:18 | MHC.OFFVISCO ---
Intake Intake Visit Reasons: Anticoagulation Allergies No Known Allergies Allergy (Verified 04/05/23 11:08) Medication List - Last Reconciled 04/05/23 by Juliana Martinez, RN acetaminophen ER (Tylenol Arthritis Pain) 650 mg PO Q8H amlodipine 2.5 mg PO DAILY furosemide (Lasix) 80 mg (2 x 40 mg) PO DAILY 90 days lisinopril 40 mg PO DAILY multivitamin 1 tab PO DAILY sildenafil 100 mg PO DAILY PRN 30 days tamsulosin 0.4 mg PO BEDTIME 90 days warfarin 5 mg See Protocol PO DIRECTED Nursing Note Amb to [facility] feeling well, sts he had his vein procedure on Monday 04/02 (no noted phone call from pt other than 03/07 phone call and DOS was not confirmed) pt sts he did call us back to change the appt to today pt sts he had LD warfarin on 03/28 and initially stated that he has not restarted it, as appt progressed he then stated that he took 5mg warfarin last night (Sunday) as this RN had concerns why warfarin not resumed before tonight and INR would be low, sts he bled after a previous procedure where warfarin was not held so physician wanted to hold this time before and after per pt Medications and supplements reviewed sts he has not been taking any tylenol there is discomfort only when I touch it No other changes in health, diet, medications, or supplements Denies any unusual signs and symptoms of bruising, bleeding, denies any post vein procedure right leg bleeding Denies any new Chest pain, SOB, or clotting INR: 1.1 expected low as pt only resumed warfarin last evening Nutritional guidance given: no greens x 3 more days, then balance greens and reds in diet Dose: took 5mg warfarin last night per pt, will take 5mg today and tomorrow then resume usual dosing schedule on Sunday, 2..5mg x 2 days and 5mg x 5 days F/U INR:Monday 04/09 Patient verbalizes understanding of instructions given with accurate read back/ teach back of dosing initial call to Dr Lowe office 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
== END 2023-04-05 12:17 | disposition home or self-care (01) ==
LOC: HO.ACS 11:07
PROVIDERS: PCP Internal Medicine; Visit Provider Internal Medicine
DX: Z79.01 Long term (current) use of anticoagulants (principal)

== ENCOUNTER → 2023-04-05 11:07 | Outpatient (BNVA) | payer MEDICARE, OTHER, SELFPAY | PROVIDERS: PCP Internal Medicine; Visit Provider Internal Medicine | DX: I48.92 Unspecified atrial flutter (principal); Z79.01 Long term (current) use of anticoagulants; Z51.81 Encounter for therapeutic drug level monitoring | CPT/HCPCS: 85610; 99212 ==

== ENCOUNTER 2023-04-09 11:05 | Outpatient (AMB) | payer MEDICARE, OTHER, SELFPAY ==
--- NOTE | 2023-04-09 11:12 | MHC.OFFVISCO ---
Intake Intake Visit Reasons: Anticoagulation Allergies No Known Allergies Allergy (Verified 04/09/23 11:05) Medication List - Last Reconciled 04/09/23 by Lily Lerner, RN acetaminophen ER (Tylenol Arthritis Pain) 650 mg PO Q8H amlodipine 2.5 mg PO DAILY furosemide (Lasix) 80 mg (2 x 40 mg) PO DAILY 90 days lisinopril 40 mg PO DAILY multivitamin 1 tab PO DAILY sildenafil 100 mg PO DAILY PRN 30 days tamsulosin 0.4 mg PO BEDTIME 90 days warfarin 5 mg See Protocol PO DIRECTED Nursing Note INR 1.4 UP FROM 1.1? out of therapeutic range Medications and supplements reviewed Patient status: PT HAD VEIN PROCEDURES AND HWLD WAFARFIN X 5 DAYS THEN DID NOT RESUME FOR SEVERAL DAYS AFTER DUE TO HX OF BLEED IN THE PAST Medications or supplements: NO CHANGES Diet: GOOD Denies any signs and symptoms of bleeding or clotting or unusual bruising Bleeding, bruising, clotting discussed Nutritional guidance given: AVOID GREENS X 2 DAYS Dose: 7.5MG TODAY THEN 2.5MG SUN SAT/ 5MG X OTHER DYS F/U INR Date : 04/13/23 ?? Patient verbalizing understanding of instructions given. Anti-Coag Initial Assessment Social Hx Patient Tobacco Use Status: Never used Tobacco alcohol intake: current Alcohol intake frequency: holidays/special occasions only Coding Level of Care Code Est Patient Level 1 Diagnoses Current use of anticoagulant therapy Z79.01 Assessment & Plan Assessment & Plan (1) Current use of anticoagulant therapy: Code(s): Z79.01 - shelter (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
[2023-04-09 11:13] LABS: Prothrombin Time Whole Bld POC 17.3 sec (11.1-13.5); ~PT, ~INR - Anti Coag Clinic 1.4 (0.9-1.1)
== END 2023-04-09 11:24 | disposition home or self-care (01) ==
LOC: HO.ACS 11:05
PROVIDERS: PCP Internal Medicine; Visit Provider Internal Medicine
DX: Z79.01 Long term (current) use of anticoagulants (principal)

== ENCOUNTER → 2023-04-09 11:05 | Outpatient (BNVA) | payer MEDICARE, OTHER, SELFPAY | PROVIDERS: PCP Internal Medicine; Visit Provider Internal Medicine | DX: I48.92 Unspecified atrial flutter (principal); Z79.01 Long term (current) use of anticoagulants; Z51.81 Encounter for therapeutic drug level monitoring | CPT/HCPCS: 85610; 99211 ==

== ENCOUNTER 2023-04-13 11:17 | Outpatient (AMB) | payer MEDICARE, OTHER, SELFPAY ==
--- NOTE | 2023-04-13 11:25 | MHC.OFFVISCO ---
Intake Intake Visit Reasons: Anticoagulation Allergies No Known Allergies Allergy (Verified 04/13/23 11:21) Medication List - Last Reconciled 04/13/23 by Savannah Barrios RN acetaminophen ER (Tylenol Arthritis Pain) 650 mg PO Q8H amlodipine 2.5 mg PO DAILY furosemide (Lasix) 80 mg (2 x 40 mg) PO DAILY 90 days lisinopril 40 mg PO DAILY multivitamin 1 tab PO DAILY sildenafil 100 mg PO DAILY PRN 30 days tamsulosin 0.4 mg PO BEDTIME 90 days warfarin 5 mg See Protocol PO DIRECTED Nursing Note INR: 2.5- in therapeutic range of 2-3 Medications and supplements reviewed- no changes No changes in health, diet, medications, or supplements, Denies any signs and symptoms of bleeding or bruising or clotting. 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
[2023-04-13 11:26] LABS: Prothrombin Time Whole Bld POC 29.8 sec (11.1-13.5); ~PT, ~INR - Anti Coag Clinic 2.5 (0.9-1.1)
== END 2023-04-13 11:38 | disposition home or self-care (01) ==
LOC: HO.ACS 11:17
PROVIDERS: PCP Internal Medicine; Visit Provider Internal Medicine
DX: Z79.01 Long term (current) use of anticoagulants (principal)

== ENCOUNTER → 2023-04-13 11:17 | Outpatient (BNVA) | payer MEDICARE, OTHER, SELFPAY | PROVIDERS: PCP Internal Medicine; Visit Provider Internal Medicine | DX: I48.92 Unspecified atrial flutter (principal); Z79.01 Long term (current) use of anticoagulants; Z51.81 Encounter for therapeutic drug level monitoring | CPT/HCPCS: 85610; 99211 ==

== ENCOUNTER 2023-04-19 11:10 | Outpatient (AMB) | payer MEDICARE, OTHER, SELFPAY ==
--- NOTE | 2023-04-19 11:12 | A.OFFVIS_ITS ---
Intake Vital Signs 04/19/23 11:14 Height 5 ft 4 in Weight 187 lb BMI 32.1 Intake Visit Reasons: 2 week follow up OR Micro Intake Note: pt here for 2 week FU micro on 04/02/23 and a hx of right venaseal on 02/16/23 Pt says his leg is still swollen and has some soreness on it but for the most part it feels ok Allergies No Known Allergies Allergy (Verified 04/19/23 11:14) HPI 2 week follow up OR Micro HPI Details Very pleasant 82-year-old gentleman presents for follow-up regarding venous disease. He has undergone right lower extremity operative microphlebectomy. He also has undergone ligation of venous cluster. Reports that the right leg is doing significantly better. He does have a little bit of a phlebitic area in the right medial calf. Other than that no significant complaints. He does have some varicosities on the left leg which have been a source of discomfort for him as well. 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 Daughter No problems noted. Maternal Grandfather No problems noted. Maternal Grandmother No problems noted. Paternal Grandfather No problems noted. Paternal Grandmother No problems noted. Social History Housing: House Are you a primary acute care registered nurse to a significant other at home: No Do you presently have visiting nurse or other home services: No Alcohol intake: current Alcohol intake frequency: holidays/special occasions only Alcohol type: wine Patient Tobacco Use Status: Never used Tobacco e-Cigarette/Vaping Use: Never Used Current occupational status: retired Cognitive needs: No Hearing needs: No Vision needs: Yes Review of Systems Const Reports as per HPI ENT Reports no additional complaints Card Denies chest pain, Denies chest pain at rest and Denies chest pain with activity Resp Denies chest congestion and Denies cough GI Reports no additional complaints Musc Details: pain over varicosities, aching of lower extremities, swelling, cramping, heaviness and tiredness, itching Denies abnormal gait Skin/Breast Reports pruritus and Denies wounds Neuro Reports no additional complaints and Denies abnormal gait Psych Denies no additional complaints Physical Exam Vital Signs: BMI result Body Mass Index 32.1 Const General: cooperative, healthy appearing and comfortable Orientation/consciousness: oriented to person, oriented to place and oriented to time Neck Carotids: no bruits Chest Chest palpation & inspection: normal inspection of the chest and normal palpation of entire chest wall Resp Effort & Inspection: normal respiratory effort and able to speak in complete sentences Cardio Rate: regular rate Heart sounds: S1 normal heart sound present and S2 normal heart sound present Peripheral pulses: Peripheral pulses 2+ throughout GI Inspection: Yes normal to inspection Skin Other: +2 edema, large rope-like varicosities greater than 4 mm CEAP Classification C4 - skin color changes Ep - Etiology Primary As - superficial veins P - reflux General skin exam: dry skin Neuro General: oriented to person, oriented to place and oriented to time Extrem Right lower extremity: full ROM, normal capillary refill and edema Left lower extremity: full ROM, normal capillary refill and edema Psych Mental Status: mental status grossly normal Assessment & Plan Assessment & Plan (1) Varicose veins of right lower extremity with inflammation: Comment: 02/16/2023 right great saphenous vein Cyanoacralate ablation 04/02/2023 - right leg operative microphlebectomy Code(s): I83.11 - Varicose veins of right lower extremity with inflammation (2) Varicose veins of left lower extremity with inflammation: Code(s): I83.12 - Varicose veins of left lower extremity with inflammation Plan: Patient has done well with right leg venous treatment. He continues to have prominent varicosities in the left lower extremity. They are a source of pain and discomfort for him. At the current time he has elected to manage this conservatively. Will plan for approximately a 3 month follow-up regarding his venous disease. At that time if they continue to be an issue may plan for microphlebectomy. Thank you for allowing us to assist in his care. If there ar e any questions or concerns please do not hesitate to contact us. Coding Level of Care Code Est Pt Level 4 (06493) Diagnoses Varicose veins of right lower extremity with inflammation I83.11 Varicose veins of left lower extremity with inflammation I83.12
[2023-04-19 11:14] VITALS: BMI 32.1
== END 2023-04-19 11:40 | disposition home or self-care (01) ==
PROVIDERS: PCP Internal Medicine; Visit Provider Surgery Vascular Surgery
DX: I83.11 Varicose veins of right lower extremity with inflammation (principal); I83.12 Varicose veins of left lower extremity with inflammation
CPT/HCPCS: 99024

== ENCOUNTER → 2023-04-19 11:10 | Outpatient (BNVA) | payer MEDICARE, OTHER, SELFPAY | PROVIDERS: PCP Internal Medicine; Visit Provider Surgery Vascular Surgery | DX: I83.11 Varicose veins of right lower extremity with inflammation (principal); I83.12 Varicose veins of left lower extremity with inflammation | CPT/HCPCS: 99212 ==

== ENCOUNTER 2023-05-02 11:15 | Outpatient (AMB) | payer MEDICARE, OTHER, SELFPAY ==
[2023-05-02 11:32] LABS: Prothrombin Time Whole Bld POC 37.3 sec (11.1-13.5); ~PT, ~INR - Anti Coag Clinic 3.1 (0.9-1.1)
--- NOTE | 2023-05-02 11:42 | MHC.OFFVISCO ---
Intake Intake Visit Reasons: Anticoagulation Allergies No Known Allergies Allergy (Verified 05/02/23 11:27) Medication List - Last Reconciled 05/02/23 by Mireille Donato RN acetaminophen ER (Tylenol Arthritis Pain) 650 mg PO Q8H amlodipine 2.5 mg PO DAILY furosemide (Lasix) 80 mg (2 x 40 mg) PO DAILY 90 days lisinopril 40 mg PO DAILY multivitamin 1 tab PO DAILY sildenafil 100 mg PO DAILY PRN 30 days tamsulosin 0.4 mg PO BEDTIME 90 days warfarin 5 mg See Protocol PO DIRECTED Nursing Note NO CP,SOB,DIET/MED CHANGES,FALLS OR SX OF BLEEDING. CONTINUE PRESENT DOSE AND FOLLOW-UP[ IN 3 WEEKS. GREENS TODAY GOOD UNDERSTANDING OF DOSING INSTR. Anti-Coag Initial Assessment Social Hx Patient Tobacco Use Status: Never used Tobacco alcohol intake: current Alcohol intake frequency: holidays/special occasions only Coding Level of Care Code Est Patient Level 1
== END 2023-05-02 11:44 | disposition home or self-care (01) ==
LOC: HO.ACS 11:15
PROVIDERS: PCP Internal Medicine; Visit Provider Internal Medicine
DX: Z79.01 Long term (current) use of anticoagulants (principal)

== ENCOUNTER → 2023-05-02 11:15 | Outpatient (BNVA) | payer MEDICARE, OTHER, SELFPAY | PROVIDERS: PCP Internal Medicine; Visit Provider Internal Medicine | DX: I48.92 Unspecified atrial flutter (principal); Z79.01 Long term (current) use of anticoagulants; Z51.81 Encounter for therapeutic drug level monitoring | CPT/HCPCS: 85610; 99211 ==

== ENCOUNTER → 2023-05-07 23:59 | Outpatient (BNV) | payer MEDICARE, OTHER, SELFPAY ==
--- NOTE | 2023-05-09 12:36 | A.OFFVIS_ITS ---
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 Daughter No problems noted. Maternal Grandfather No problems noted. Maternal Grandmother No problems noted. Paternal Grandfather No problems noted. Paternal Grandmother No problems noted. Social History Housing: House Are you a primary care director rn to a significant other at home: No Do you presently have visiting nurse or other home services: No Alcohol intake: current Alcohol intake frequency: holidays/special occasions only Alcohol type: wine Patient Tobacco Use Status: Never used Tobacco e-Cigarette/Vaping Use: Never Used Current occupational status: retired Cognitive needs: No Hearing needs: No Vision needs: Yes Office Procedures Cardiac Device Check Cardiac Device Check Details: Date of service- 05/07/2023 ; Battery life 40%; normal lead parameters; AP 13%; DISEASE AND INSECT CONTROL BOSS 94%; atrial burden 84%; Overall normal device function. [id number] Cardiac Device Interrogation, pacemaker Procedure code (CPT) selection complete Assessment & Plan Assessment & Plan (1) PAF (paroxysmal atrial fibrillation): Code(s): I48.0 - Paroxysmal atrial fibrillation Plan x Coding Level of Care Code Procedure Only Diagnoses PAF (paroxysmal atrial fibrillation) I48.0 CPT Codes Cardiac Device Check - Cardiac Device 12: [id number] Cardiac Device Interrogation, pacemaker ([id number])
== END ==
PROVIDERS: PCP Internal Medicine; Visit Provider Internal Medicine
DX: I48.0 Paroxysmal atrial fibrillation (principal); Z95.0 Presence of cardiac pacemaker
CPT/HCPCS: 93294

== ENCOUNTER 2023-05-10 11:45 | Outpatient (REF) | payer MEDICARE, OTHER, SELFPAY ==
[2023-05-10 13:06] LABS: MANUAL DIFF FLAG NO
[2023-05-10 13:26] LABS: Basophils Absolute Auto 0.1 X10*3/uL (0.0-0.2); Basophils Percent Auto 1.1 % (0-2); Eosinophils Absolute Auto 0.1 X10*3/uL (0.0-0.4); Hematocrit 39.5 % (42.0-52.0); Hemoglobin 12.6 g/dl (14.0-18.0); Imm Gran Abs Auto 0.02 X10*3/uL (0.00-0.03); Imm Gran Pct Auto 0.4 % (0.0-0.4); Lymphocytes Absolute Auto 1.5 X10*3/uL (1.2-4.9); Lymphocytes Percent Auto 26.2 % (20-40); Mean Corpuscular HGB Conc 31.9 g/dl (31.0-36.0); Mean Corpuscular Hemoglobin 29.2 pg (27.0-33.0); Mean Corpuscular Volume 91.6 fL (80.0-98.0); Mean Platelet Volume 11.3 fL (9.4-12.4); Monocytes Absolute Auto 0.7 X10*3/uL (0.1-1.2); Monocytes Percent Auto 11.7 % (2-11); Neutrophils Absolute Auto 3.3 x10*3/uL (2.0-8.3); Neutrophils Percent Auto 58.6 % (45-73); Platelet Count 170 X10*3/uL (160-400); Red Blood Count 4.31 X10*6/uL (4.60-5.80); Red Cell Distribution Width 12.7 % (11.0-16.0); White Blood Count 5.6 X10*3/uL (4.8-10.8)
[2023-05-10 13:58] LABS: Alanine Aminotransferase 18 U/L (0-40); Albumin Level 3.9 g/dL (3.5-5.0); Alkaline Phosphatase 96 U/L (39-117); Anion Gap 10 (12-20); Aspartate Amino Transferase 23 U/L (5-37); Bilirubin Total 0.8 mg/dL (0.0-1.0); Blood Urea Nitrogen 52 mg/dL (9-16); Calcium 9.1 mg/dL (8.4-10.2); Carbon Dioxide 26 mmol/L (22-29); Chloride 108 mmol/L (96-108); Estimated Glomerular Filt Rate > 60; Glucose Fasting 97 mg/dL (60-99); Potassium 4.3 mmol/L (3.3-5.1); Sodium 140 mmol/L (135-145); Total Protein 7.2 g/dL (6.5-8.0)
== END 2023-05-10 11:46 | disposition home or self-care (01) ==
LOC: HO.HMGCLDS 11:45
PROVIDERS: PCP Internal Medicine; Visit Provider Internal Medicine
DX: I10 Essential (primary) hypertension (principal); I48.0 Paroxysmal atrial fibrillation
CPT/HCPCS: 36415; 80053; 85025

== ENCOUNTER 2023-05-13 12:50 | Emergency (ER) | payer MEDICARE, OTHER, SELFPAY ==
--- NOTE | ~2023-05-13 | CT_ITS ---
EXAMINATION: CT HEAD WITHOUT CONTRAST CT CERVICAL SPINE WITHOUT CONTRAST CLINICAL INFORMATION: Trauma. COMPARISON: No similar priors. TECHNIQUE: Contiguous axial imaging was performed from the skull base to vertex without intravenous administration of contrast. Contiguous axial imaging was performed from the upper chest through the skull base without intravenous administration of contrast. Coronal and sagittal reformats were obtained at the acquisition workstation. This CT examination was performed using dose optimization techniques as appropriate, variously including the following: *Automated exposure control *Adjustment of mA and/or kV according to patient size (this includes techniques or standardized protocols for targeted exams where dose is matched to indication/reason for exam; i.e. extremities or head) *Use of iterative reconstruction technique DLP: 640 and 493 mGy-cm FINDINGS: Head: Examination is limited by motion. There is no evidence of acute intracranial hemorrhage or edematous territorial infarction. Scattered hypoattenuation in the periventricular and deep white matter are consistent with moderate microangiopathy. Hameed-white matter differentiation is preserved. Proportional prominence of the ventricles and sulcal spaces. No evidence for obstructive hydrocephalus. No abnormal mass effect or midline shift. No extra-axial fluid collections. No acute soft tissue or osseous abnormalities. Mucus retention cysts in the maxillary sinuses. Other paranasal sinuses, mastoids and middle ear cavities are clear. Bilateral lens extraction. Cervical Spine: Trace anterolisthesis disease of C3 on C4 and C7 on T1, most likely degenerative in nature, no associated soft tissue swelling or hematoma. No evidence of acute compression deformity or traumatic subluxation. Moderate to severe multilevel intervertebral disc height loss. Moderate multilevel uncovertebral/facet hypertrophy leading to various degrees of neural foraminal encroachment. Prominent degenerative calcifications in the atlantodental joint. No prevertebral soft tissue thickening. The thyroid gland and remaining cervical soft tissues are normal in appearance. Platelike opacities in the right upper lobe, favored to represent scarring or subsegmental atelectasis. Minimal smooth septal thickening of the right than left apices that could be seen with some degree of pulmonary edema. Superficial soft tissue nodule in the right occipital region measuring 1.4 cm (5:65) favoring to represent a nonaggressive skin-based lesion such as sebaceous cyst. CT/CT cervical spine wo IV con IMPRESSION: 1. No acute intracranial pathology. 2. Moderate chronic microangiopathy and generalized cerebral volume loss. 3. No acute cervical spinal fractures or malalignment. 4. Moderate to severe multilevel cervical spondylosis.
--- NOTE | ~2023-05-13 | XR_ITS ---
EXAMINATION: XR RIBS, RIGHT CLINICAL INFORMATION: Fall in bathtub, COMPARISON: Chest radiograph 04/04/2007. TECHNIQUE: 3 views of the right ribs were obtained. FINDINGS: Left subclavian pacemaker with leads terminating over the right atrium and right ventricle. Low lung volumes with mild scattered bibasilar reticular opacities, likely atelectasis. No focal consolidation. No appreciable pneumothorax, or pleural effusion. Cardiomediastinal silhouette is unchanged. Surgical clips overlie the right neck soft tissues. Osseous structures are unremarkable. Ribs are intact. Acute, mildly displaced right posterolateral ninth and 10th rib fractures. XR/XR ribs RT min 3V w CXR1V IMPRESSION: 1. Acute, mildly displaced right posterolateral 9th and 10th rib fractures. No appreciable pneumothorax. 2. Low lung volumes with mild bibasilar atelectasis.
--- NOTE | ~2023-05-13 | CT_ITS ---
Examination: CT chest, abdomen and pelvis with IV contrast. Clinical indications: Trauma. COMPARISON: CT abdomen pelvis 08/28/2022. TECHNIQUE: 5 mm thin axial and reformatted 3 mm thin sagittal and coronal images of chest, abdomen and pelvis were obtained following IV however mL Omnipaque 350 50. DLP 1533. This CT examination was performed using dose optimization technique as appropriate, variously including the following: Automated exposure control Adjustment of MA and/or KV according to patient size(this includes techniques or standardized protocols for targeted exams where dose is matched to indication/reason for exam; extremities or head. Use of iterative reconstruction techniques. FINDINGS: CHEST: LUNGS: The lungs are well-expanded with dependent bilateral posterior segment upper lobe atelectasis. Mild atelectatic changes also visualized in the lingula and right lower lobe. There is a right lower lobe moderate size consolidation/contusion or atelectasis. Mediastinum: The heart size is enlarged. There is visualized aorta is normal caliber without dissection or aneurysm. The periarticular is normal. There is mild coronary artery calcifications. No pericardial effusion seen. No abnormal size mediastinal or hilar lymph nodes seen. The central trachea and the bronchi widely patent. Thyroid lobes are symmetrical and normal. Dual pacer electrodes in right atrium and right ventricle. Pleura: There is minimal right posterior pleural thickening. No evidence of pleural effusion or calcified pleural plaques. Axilla: No abnormal-sized size lymph nodes seen. The chest wall is unremarkable. Osseous structures: No aggressive lytic or sclerotic process seen. Abdomen and pelvis: Liver, ducts and gallbladder: The liver is homogeneous in density, normal size and contour. No focal lesion or intrahepatic ductal dilatation seen. The gallbladder is unremarkable. Spleen: Unremarkable. Small accessory splenule seen inferior to the hilum. Pancreas: Unremarkable. Adrenal glands: Unremarkable. Kidneys and ureter: Both kidney nephrograms are normal size, shape and position. There are bilateral nonenhancing simple renal cysts. No radiopaque renal calculi or hydronephrosis seen. Lymphovascular structures: The abdominal aorta is of normal caliber. The IVC is slightly prominent and so are bilateral common iliac veins but no obstructive etiology seen GI tract: There is scattered stool, gas and diverticuli throughout the colon without distention or diverticulitis. Appendix is normal caliber. The small bowel loops are normal caliber. Abdominal wall: Unremarkable. There is a small lipoma of the left iliopsoas muscle measuring approximately 4.1 cm in length Pelvis: The urinary bladder is nondistended. There are radiation seeds in the prostate gland. No abnormal pelvic or inguinal lymphadenopathy. Osseous structures: Mild degenerative disc changes seen throughout lumbar spine. No aggressive lytic or sclerotic process. No evidence of fracture. CT/CT abdomen pelvis w IV con IMPRESSION: 1. Right lower lobe moderate size consolidation/contusion or atelectasis. There is minimal right posterior pleural thickening. Scattered atelectatic changes as described above 2. There is no pleural effusion or pneumothorax. 3. Mild cardiomegaly with coronary artery calcifications. 4. Bilateral renal cysts without radiopaque calculi or hydronephrosis. 5. Mild constipation with scattered colonic diverticulosis without diverticulitis. 6. Radiation seeds in the prostate gland. 7. Small lipoma left iliopsoas muscle.
[2023-05-13 13:07] VITALS: BP 102/60; BP 122/72; PULSE 70; PULSE 71; RESP 16; TEMP 36.6; O2SAT 96; O2SAT 98; BMI 25.8
[2023-05-13 14:52] LABS: MANUAL DIFF FLAG NO
[2023-05-13 14:53] LABS: Basophils Absolute Auto 0.1 X10*3/uL (0.0-0.2); Basophils Percent Auto 0.7 % (0-2); Eosinophils Percent Auto 0.2 % (0-4); Hemoglobin 12.3 g/dl (14.0-18.0); Imm Gran Abs Auto 0.02 X10*3/uL (0.00-0.03); Imm Gran Pct Auto 0.2 % (0.0-0.4); Lymphocytes Absolute Auto 1.2 X10*3/uL (1.2-4.9); Lymphocytes Percent Auto 14.4 % (20-40); Mean Corpuscular HGB Conc 32.4 g/dl (31.0-36.0); Mean Corpuscular Hemoglobin 29.5 pg (27.0-33.0); Mean Corpuscular Volume 91.1 fL (80.0-98.0); Mean Platelet Volume 10.4 fL (9.4-12.4); Monocytes Percent Auto 12.3 % (2-11); Neutrophils Absolute Auto 5.8 x10*3/uL (2.0-8.3); Neutrophils Percent Auto 72.2 % (45-73); Platelet Count 147 X10*3/uL (160-400); Red Blood Count 4.17 X10*6/uL (4.60-5.80); Red Cell Distribution Width 12.9 % (11.0-16.0); White Blood Count 8.1 X10*3/uL (4.8-10.8)
[2023-05-13 14:59] LABS: INTERNATIONAL NORM RATIO 3.9 (0.9-1.1); Prothrombin Time 47.9 SEC (11.1-13.3)
[2023-05-13 15:01] LABS: Partial Thromboplastin Time 50.3 SEC (26.0-36.4)
[2023-05-13 15:12] LABS: Alanine Aminotransferase 20 U/L (0-40); Albumin Level 3.7 g/dL (3.5-5.0); Alkaline Phosphatase 89 U/L (39-117); Anion Gap 12 (12-20); Aspartate Amino Transferase 23 U/L (5-37); Bilirubin Total 0.9 mg/dL (0.0-1.0); Blood Urea Nitrogen 37 mg/dL (9-16); Calcium 9.1 mg/dL (8.4-10.2); Carbon Dioxide 23 mmol/L (22-29); Chloride 110 mmol/L (96-108); Creatinine Clr Calc Pharmacy 47.7; Estimated Glomerular Filt Rate 58; Glucose Random 96 mg/dL (60-115); Potassium 4.9 mmol/L (3.3-5.1); Sodium 140 mmol/L (135-145)
--- NOTE | 2023-05-13 15:28 | ED_ITS ---
HPI - Fall General Chief Complaint: Fall Stated Complaint: BACK/RLQ PAIN W/BREATHING S/P FALL T-1 PER EMS Time Seen by Provider: 05/13/23 13:38 Source: patient Mode of arrival: EMS Limitations: no limitations History of Present Illness HPI Narrative: THIS IS 82 YEARS OLD MALE PRESENTED TO THE EMERGENCY DEPARTMENT COMPLAINING OF FALL THAT YESTERDAY, IS COMPLAINING OF RIGHT FLANK PAIN AND RIGHT CHEST WALL PAIN. IS ANTICOAGULATED WITH WARFARIN HE HAD A PACEMAKER IN THE PAST, HAS HISTORY OF SUBDURAL HEMATOMA, PAROXYSMAL AFIB Onset (ago): day(s) (1) Fall from: standing Fall witnessed: no Place fall occurred: home Loss of consciousness: none Prolonged down time: no Symptoms prior to fall: none Related Data Home Medications Medication Instructions Recorded Confirmed acetaminophen 650 mg 650 mg PO Q8H 10/22/20 04/09/23 tablet,extended release (Tylenol Arthritis Pain) multivitamin 1 tab PO DAILY 05/12/21 04/09/23 Previous Rx's Medication Instructions Recorded warfarin 5 mg tablet 5 mg PO DIRECTED #120 tabs 07/28/22 lisinopril 40 mg tablet 40 mg PO DAILY #90 tabs 08/04/22 furosemide 40 mg tablet (Lasix) 80 mg (2 x 40 mg) PO DAILY 90 days 09/04/22 #180 tabs tamsulosin 0.4 mg capsule 0.4 mg PO BEDTIME 90 days #90 caps 02/13/23 sildenafil 100 mg tablet 100 mg PO DAILY PRN sexual 03/13/23 activity 30 days #30 tabs amlodipine 2.5 mg tablet 2.5 mg PO DAILY #90 tabs 04/28/23 Allergies Allergy/AdvReac Type Severity Reaction Status Date / Time No Known Allergies Allergy Verified 05/02/23 11:27 Review of Systems 2 Constitutional: Constitutional: Reports no additional constitutional complaints Cardiovascular: Cardiovascular: Reports no additional cardiovascular complaints [facility] Past Medical History Attestation statement: The following information was validated with the patient. 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 Daughter No problems noted. Maternal Grandfather No problems noted. Maternal Grandmother No problems noted. Paternal Grandfather No problems noted. Paternal Grandmother No problems noted. Social History Social History Housing: House Are you a primary managed care coordinator to a significant other at home: No Do you presently have visiting nurse or other home services: No Alcohol intake: current Alcohol intake frequency: holidays/special occasions only Alcohol type: wine Patient Tobacco Use Status: Never used Tobacco e-Cigarette/Vaping Use: Never Used Advance Directives: Yes Advance Directives on File: Yes Advance Directives Date on File: 05/02/21 Current occupational status: retired Cognitive needs: No Hearing needs: No Vision needs: Yes Physical Exam 2 Vital Signs: Vital Signs: Last Vital Signs Temp 97.9 F 05/13/23 13:07 Pulse 71 05/13/23 13:07 Resp 16 05/13/23 13:07 BP 102/60 05/13/23 13:07 Pulse Ox 96 05/13/23 13:07 O2 Del Method Room Air 05/13/23 13:07 BMI result Body Mass Index 25.8 Const: General: cooperative Nutritional Appearance: well nourished O rientation/consciousness: patient oriented x3 HEENT: Other: NO INJURY Head: Yes normal to inspection General nose exam: Normal external nose present Face and sinus: Yes normal facial exam Mouth: Normal oral and palatal mucosa present Teeth and gingiva: dentition normal Throat: Yes posterior oropharynx normal Neck: Neck: Yes normal visual inspection Chest: Chest palpation & inspection: normal inspection of the chest Resp: Effort & Inspection: normal respiratory effort Cardio: Jugular venous distension: no JVD Rate: regular rate Rhythm: r egular rhythm GI: Other: TENDERNESS RT FLANK Inspection: Yes normal to inspection : General: Yes no CVA tenderness Back/Spine/Pelvis: Back: no CVA tenderness Thoracic/Lumbar Spine: thoracic and lumbar spine normal to inspection and other (TENDERNESS IN THE RIGHT CHEST WALL) Neuro: General: patient oriented x3 Cranial nerves: Yes CN's II-XII intact bilaterally Course Reevaluation(s) Reevaluation #1: SIGNED OUT TO DR Sewell CT PENDING Time: 16:38 Medical Decision Making Medical Decision Making [facility] Narrative: PATIENT PRESENTED TO EMERGENCY ROOM AFTER A FALL YESTERDAY HE IS ANTICOAGULATED WITH COUMADIN HE WILL NEED SCANS Differential Diagnosis Differential Diagnoses: The differential diagnosis associated with the presentation includes Admission/Observation Consideration of admission/observation: Escalation of care including admission/observation considered Lab Data 05/13/23 14:47 05/13/23 14:47 Labs: Lab Results 05/13/23 Range/Units 14:47 WBC 8.1 (4.8-10.8) X10*3/uL RBC 4.17 L (4.60-5.80) X10*6/uL Hgb 12.3 L (14.0-18.0) g/dl Hct 38.0 L (42.0-52.0) % MCV 91.1 (80.0-98.0) fL MCH 29.5 (27.0-33.0) pg MCHC 32.4 (31.0-36.0) g/dl RDW 12.9 (11.0-16.0) % Plt Count 147 L (160-400) X10*3/uL MPV 10.4 (9.4-12.4) fL Immature Gran % (Auto) 0.2 (0.0-0.4) % Neut % (Auto) 72.2 (45-73) % Lymph % (Auto) 14.4 L (20-40) % Cecil % (Auto) 12.3 H (2-11) % Eos % (Auto) 0.2 (0-4) % Baso % (Auto) 0.7 (0-2) % Lymph # (Auto) 1.2 (1.2-4.9) X10*3/uL Cecil # (Auto) 1.0 (0.1-1.2) X10*3/uL Eos # (Auto) 0.0 (0.0-0.4) X10*3/uL Baso # (Auto) 0.1 (0.0-0.2) X10*3/uL Abs Immat Gran (auto) 0.02 (0.00-0.03) X10*3/uL Absolute Neuts (auto) 5.8 (2.0-8.3) x10*3/uL Absolute Nucleated RBC 0.000 (0.0-0.012) X10*3/uL Nucleated RBC % (auto) 0.0 (0.0-0.2) /100WBC PT 47.9 H D (11.1-13.3) SEC INR 3.9 H D (0.9-1.1) APTT 50.3 H D (26.0-36.4) SEC Sodium 140 (135-145) mmol/L Potassium 4.9 (3.3-5.1) mmol/L Chloride 110 H (96-108) mmol/L Carbon Dioxide 23 (22-29) mmol/L Anion Gap 12 (12-20) BUN 37 H (9-16) mg/dL Creatinine 1.19 (0.5-1.4) mg/dL Estim Creat Clear Calc 47.7 Estimated GFR 58 Random Glucose 96 (60-115) mg/dL Calcium 9.1 (8.4-10.2) mg/dL Total Bilirubin 0.9 (0.0-1.0) mg/dL AST 23 (5-37) U/L ALT 20 (0-40) U/L Alkaline Phosphatase 89 (39-117) U/L Total Protein 7.0 (6.5-8.0) g/dL Albumin 3.7 (3.5-5.0) g/dL Discharge Plan Discharge Clinical Impression: Fall, Flank pain Prescriptions: No Action warfarin 5 mg tablet 5 mg PO DIRECTED Qty: 120 3RF Protocol: Dose Management Condition: Sunday (Week One) Dose/Route: 5 mg Instruction: 1 x 5 mg tablet Condition: Sunday Dose/Route: 5 mg Instruction: 1 x 5 mg tablet Condition: Sunday Dose/Route: 5 mg Instruction: 1 x 5 mg tablet Condition: Sunday Dose/Route: 2.5 mg Instruction: 0.5 x 5 mg tablets Condition: Dose/Route: 5 mg Instruction: 1 x 5 mg tablet Condition: Sunday Dose/Route: 5 mg Instruction: 1 x 5 mg tablet Condition: Sunday Dose/Route: 2.5 mg Instruction: 0.5 x 5 mg tablets Condition: Sunday (Week Two) Dose/Route: 5 mg Instruction: 1 x 5 mg tablet Condition: Sunday Dose/Route: 5 mg Instruction: 1 x 5 mg tablet Condition: Sunday Dose/Route: 5 mg Instruction: 1 x 5 mg tablet Condition: Sunday Dose/Route: 2.5 mg Instruction: 0.5 x 5 mg tablets Condition: Dose/Route: 5 mg Instruction: 1 x 5 mg tablet Condition: Sunday Dose/Route: 5 mg Instruction: 1 x 5 mg tablet Condition: Sunday Dose/Route: 2.5 mg Instruction: 0.5 x 5 mg tablets Protocol Text: Adjustment Start Date: Sunday05/02/23 INR Value: 3.1 INR Date: 05/02/23 Recheck Date: 05/23/23 lisinopril 40 mg tablet 40 mg PO DAILY Qty: 90 3RF amlodipine 2.5 mg tablet 2.5 mg PO DAILY Qty: 90 3RF acetaminophen [Tylenol Arthritis Pain] 650 mg tablet extended release 650 mg PO Q8H sildenafil 100 mg tablet 100 mg PO DAILY PRN (Reason: sexual activity) 30 Days Qty: 30 1RF Rx Instructions: administer 60 minutes before intended activity multivitamin Tablet 1 tab PO DAILY tamsulosin 0.4 mg capsule 0.4 mg PO BEDTIME 90 Days Qty: 90 3RF furosemide [Lasix] 40 mg tablet 80 mg PO DAILY 90 Days Qty: 180 3RF
[2023-05-13] MEDS: iohexoL 350 MG/ML 100 ML INFUS..BTL 85 ML IV (17:16)
[2023-05-13] MEDS: oxyCODONE HCl Immed Release 5 MG TABLET 10 MG PO (19:29)
[2023-05-13] MEDS: Morphine Sulfate 4 MG/ML CARTRIDGE IVPUSH (19:30)
[2023-05-13] MEDS: ondansetron HCL 4 MG/2 ML VIAL IVPUSH (19:30)
[2023-05-13 19:31] VITALS: BP 108/63; PULSE 89; RESP 16; O2SAT 99
--- NOTE | 2023-05-13 19:35 | PC.NURSE ---
late entry: Patient had 20g IV in RAC. pain medications administered
== END 2023-05-13 20:19 | disposition home or self-care (01) ==
PROVIDERS: Emergency Provider Emergency Medicine; PCP Internal Medicine
DX: R07.89 Other chest pain (principal); R10.9 Unspecified abdominal pain; I48.0 Paroxysmal atrial fibrillation; Z79.01 Long term (current) use of anticoagulants; Z79.899 Other long term (current) drug therapy
CPT/HCPCS: 36415; 70450; 71101; 71260; 72125; 74177; 80053; 85025; 85610; 85730; 96374; 96375; 99284; J2270; J2405; Q9967

== ENCOUNTER 2023-05-16 21:56 | Inpatient (IN) | payer MEDICARE, OTHER, SELFPAY ==
--- NOTE | ~2023-05-16 | XR_ITS ---
EXAMINATION: XR ANKLE, RIGHT CLINICAL INFORMATION: Pain and swelling. History of fall. COMPARISON: None available. TECHNIQUE: AP oblique, AP oblique, AP oblique, lateral radiographs of the right ankle FINDINGS: The oblique views are suboptimally oriented. The talar dome appears intact. Soft tissue prominence is present concentrically about the ankle. No acute appearing fractures visualized. Diffuse vascular calcifications. The base of the fifth metatarsal appears intact. The subtalar joints appear intact. No ankle effusion visualized. XR/XR ankle RT 2V IMPRESSION: *Concentric soft tissue prominence about the ankle which may represent edema or soft tissue inflammatory changes. *No acute fractures identified.
--- NOTE | ~2023-05-16 | XR_ITS ---
EXAMINATION: XR CHEST CLINICAL INFORMATION: NG tube placement. COMPARISON: 05/13/2023 TECHNIQUE: Frontal view of the chest was obtained. FINDINGS: Left subclavian pacer with leads in the right atrium and right ventricle. New NG tube is below the diaphragm. Cardiomediastinal silhouette is stable. Lungs are hypoexpanded with minimal atelectatic changes at the left lung base. No consolidation. No effusion. No pneumothorax. XR/XR chest 1V IMPRESSION: NG tube below the diaphragm.
--- NOTE | ~2023-05-16 | XR_ITS ---
EXAMINATION: XR HUMERUS RIGHT XR SHOULDER RIGHT CLINICAL INFORMATION: Right arm pain. COMPARISON: CT images of the chest (that include part of the right shoulder) from 05/17/2023. TECHNIQUE: Right shoulder, 3 views Right humerus, 2 views FINDINGS: Right shoulder: Alignment is normal at the acromioclavicular and glenohumeral joints. There is clavicular osteophyte formation and mild subchondral cystic change at the acromioclavicular joint. The humeral head is well-positioned over the intact glenoid. The glenohumeral joint space is maintained. There is chondrocalcinosis of the joint. No evidence of scapular or upper rib fracture. No apical pneumothorax. A right arm peripherally inserted catheter is partially included in the [id number]. Right humerus: Intact. Alignment is normal at the shoulder and elbow. Again noted is the right arm peripherally inserted catheter. The patient has displaced fractures of right 9th, 10th and 11th ribs. These are well seen on the recent chest CT from 05/17/2023. XR/XR humerus RT IMPRESSION: * No acute fracture or malalignment at the right shoulder or elbow. The humerus is intact. * Mild osteoarthritis of the acromioclavicular joint. * Again noted are acute fractures of right posterior 9th, 10th and 11th ribs.
--- NOTE | ~2023-05-16 | XR_ITS ---
EXAMINATION: XR HUMERUS RIGHT XR SHOULDER RIGHT CLINICAL INFORMATION: Right arm pain. COMPARISON: CT images of the chest (that include part of the right shoulder) from 05/17/2023. TECHNIQUE: Right shoulder, 3 views Right humerus, 2 views FINDINGS: Right shoulder: Alignment is normal at the acromioclavicular and glenohumeral joints. There is clavicular osteophyte formation and mild subchondral cystic change at the acromioclavicular joint. The humeral head is well-positioned over the intact glenoid. The glenohumeral joint space is maintained. There is chondrocalcinosis of the joint. No evidence of scapular or upper rib fracture. No apical pneumothorax. A right arm peripherally inserted catheter is partially included in the [id number]. Right humerus: Intact. Alignment is normal at the shoulder and elbow. Again noted is the right arm peripherally inserted catheter. The patient has displaced fractures of right 9th, 10th and 11th ribs. These are well seen on the recent chest CT from 05/17/2023. XR/XR shoulder RT min 2V IMPRESSION: * No acute fracture or malalignment at the right shoulder or elbow. The humerus is intact. * Mild osteoarthritis of the acromioclavicular joint. * Again noted are acute fractures of right posterior 9th, 10th and 11th ribs.
--- NOTE | ~2023-05-16 | XR_ITS ---
EXAMINATION: XR CHEST CLINICAL INFORMATION: PICC line placement. COMPARISON: Most recent chest radiograph dated 05/20/2023. TECHNIQUE: Frontal view of the chest was obtained. FINDINGS: Interval placement of a right-sided central venous catheter with the tip in the region of the distal SVC. Enterogastric tube redemonstrated with the tip beneath the left hemidiaphragm in the region of the gastric fundus. Left chest wall pacer again noted with its leads in the right heart. Linear atelectasis versus scarring within the left midlung and left lung base appearing similar when compared to the prior examination. New somewhat linear opacities within the right midlung which could represent atelectasis versus very early infiltrate. No pleural effusion or pneumothorax. Stable cardiomediastinal silhouette. XR/XR chest 1V IMPRESSION: 1. Interval placement of a right-sided central venous catheter with the tip in the region of the distal SVC. 2. Enterogastric tube in unchanged position. 3. New somewhat linear opacities within the right midlung which could represent atelectasis versus very early infiltrate. Stable linear atelectasis versus scarring within the left midlung and left lung base.
--- NOTE | ~2023-05-16 | CT_ITS ---
EXAMINATION: CT CHEST, ABDOMEN AND PELVIS WITH CONTRAST CLINICAL INFORMATION: Fall. Pain. COMPARISON: None available. TECHNIQUE: Multidetector volumetric imaging was performed from the thoracic inlet through the pubic symphysis following the administration of: Oral contrast: No Intravenous contrast: 85 mL Omnipaque 350 No contrast reaction reported Sagittal and coronal reformatted images were obtained on the technologist workstation. This CT examination was performed using dose optimization techniques as appropriate, variously including the following: *Automated exposure control *Adjustment of mA and/or kV according to patient size (this includes techniques or standardized protocols for targeted exams where dose is matched to indication/reason for exam; i.e. extremities or head) *Use of iterative reconstruction technique Total exam dose-length product: 1765 mGy-cm FINDINGS: CHEST: VASCULAR: The aorta is normal; no evidence of dissection, aneurysm, or traumatic aortic injury. The central pulmonary arteries enhance normally. AORTIC ISTHMUS: Normal. MEDIASTINUM:The heart is mildly enlarged. There is no pericardial effusion. There is no significant lymph node enlargement. LUNG: There is consolidation at the right lung base associated with minimal pleural fluid. There is right middle lobe and lingular scarring. CORONARY ARTERY CALCIFICATION: Moderate. PLEURA: There is minimal right pleural fluid. CHEST WALL/AXILLA: Unremarkable. ABDOMEN/PELVIS: LIVER : The liver is normal in size, shape, and attenuation. No focal liver lesions are seen. There is no intrahepatic biliary duct dilatation. GALLBLADDER, AND BILIARY TREE: unremarkable. PANCREAS: Normal; no mass or surrounding fluid. SPLEEN: Heterogeneous attenuation of the spleen related to contrast timing which limits assessment of subtle splenic injury. Normal in size. ADRENAL GLANDS: Masslike enlargement of the left adrenal gland measuring 3.4 x 3.2 cm with a small volume surrounding fluid/blood products. The right adrenal gland is unremarkable. KIDNEYS AND URETERS: The kidneys are normal in size, shape, and attenuation. No hydronephrosis, hydroureter, or calculi. There are scattered renal cysts measuring up to 4.4 cm upper pole right kidney. There is no hydronephrosis. URINARY BLADDER: No focal mass or wall thickening seen. Incidental left bladder diverticulum. No bladder calculi. GASTROINTESTINAL TRACT: There is retained stool throughout the colon particularly within the right colon. There are diverticula throughout the transverse descending and sigmoid colon without diverticulitis. There is mild infiltrative change/fluid along the right colon. VASCULAR STRUCTURES: There is no evidence of aortic or iliac injury. The inferior vena cava is intact. ACTIVE BLEEDING: No. LYMPH NODES: No lymphadenopathy. The aorta is unremarkable. PELVIC VISCERA: There is significant wall thickening of the vagina. ABDOMINAL WALL: No significant hernia is appreciated. OTHER OSSEOUS STRUCTURES: There is diffuse thoracolumbar disc degenerative change. There are fractures of the posterior lateral 9th, 10th and 11th ribs. CT/CT abdomen pelvis w IV con IMPRESSION: Fractures of the posterior lateral right 9th 10th and 11th ribs. Minimal right pleural effusion with associated right lung base consolidation likely representing atelectasis/scarring/contusion. Early infiltrate considered less likely. Retained stool throughout the colon particularly the right colon with right-sided pericolonic infiltrative change. Consider a right stercoral colitis. Diverticula of the transverse, descending and sigmoid colon without diverticulitis. Fleischner guidelines were followed.
--- NOTE | ~2023-05-16 | US_ITS ---
EXAMINATION: US VENOUS ULTRASOUND WITH DOPPLER LOWER EXTREMITY, RIGHT CLINICAL INFORMATION: Lower extremity swelling. Evaluate for deep vein thrombosis. COMPARISON: 02/19/2023 TECHNIQUE: Ultrasound of the deep veins is performed from the hip to the calf with compression sonography and color and pulse Doppler assessment. Spectral analysis with color-flow imaging is performed. FINDINGS: The common femoral vein is compressible. There is pulsatile flow within the visualized common femoral, profunda femoris, femoral and popliteal veins. Within the proximal thigh, the visualized profunda femoris vein is patent. Again noted is the occluded greater saphenous vein, although approximately 3 cm segment of vein is patent proximal to the saphenofemoral junction. Superficial femoral vein is patent in the proximal, mid and distal thigh. Popliteal vein is normal to the level of the trifurcation. On compression melton scale and color Doppler images, the visualized deep calf veins are grossly patent. The knee is suboptimally evaluated on this venous ultrasound exam. There appears to be a small amount of joint fluid at the medial knee. US/US venous duplex LE RT IMPRESSION: * No evidence of deep vein thrombosis in the right lower extremity. * The pulsatile flow within the femoral and popliteal veins could be a manifestation of elevated right-sided cardiac pressures. 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 * There appears to be a small right knee joint effusion.
--- NOTE | ~2023-05-16 | CT_ITS ---
EXAMINATION: CT HEAD WITHOUT CONTRAST CT CERVICAL SPINE WITHOUT CONTRAST CLINICAL INFORMATION: Fall. Patient on Coumadin. COMPARISON: None available. TECHNIQUE: Contiguous axial imaging was performed through the head and cervical spine without intravenous administration of contrast. This CT examination was performed using dose optimization techniques as appropriate, variously including the following: *Automated exposure control *Adjustment of mA and/or kV according to patient size (this includes techniques or standardized protocols for targeted exams where dose is matched to indication/reason for exam; i.e. extremities or head) *Use of iterative reconstruction technique DLP: 1018 mGy-cm FINDINGS: The lateral, third and fourth ventricles are normally outlined. The cortical sulci and basal cisterns are normally outlined as well. There is no acute territorial defect, hemorrhage or midline shift. The extra-axial spaces are unremarkable. Calvarium: Intact. Maxillofacial sinuses and mastoids: Clear as visualized. Cervical spine: There is minimal anterolisthesis C5 over C6 and C7 over T1. There is minimal retrolisthesis C4 over C5. The alignment is otherwise stable. There is diffuse [id number] cervical disc degenerative change with loss of disc space, endplate change and mild posterior osteophytes associated with diffuse facet osteoarthritic hypertrophic change with multilevel mild spinal canal and mild neuroforaminal narrowing. There is no fracture. The soft tissues are unremarkable. The visualized upper lung ge[place] are clear. CT/CT head/brain wo IV con IMPRESSION: No acute intracranial abnormality. No acute abnormality of the cervical spine.
--- NOTE | ~2023-05-16 | CT_ITS ---
EXAMINATION: CT HEAD WITHOUT CONTRAST CT CERVICAL SPINE WITHOUT CONTRAST CLINICAL INFORMATION: Fall. Patient on Coumadin. COMPARISON: None available. TECHNIQUE: Contiguous axial imaging was performed through the head and cervical spine without intravenous administration of contrast. This CT examination was performed using dose optimization techniques as appropriate, variously including the following: *Automated exposure control *Adjustment of mA and/or kV according to patient size (this includes techniques or standardized protocols for targeted exams where dose is matched to indication/reason for exam; i.e. extremities or head) *Use of iterative reconstruction technique DLP: 1018 mGy-cm FINDINGS: The lateral, third and fourth ventricles are normally outlined. The cortical sulci and basal cisterns are normally outlined as well. There is no acute territorial defect, hemorrhage or midline shift. The extra-axial spaces are unremarkable. Calvarium: Intact. Maxillofacial sinuses and mastoids: Clear as visualized. Cervical spine: There is minimal anterolisthesis C5 over C6 and C7 over T1. There is minimal retrolisthesis C4 over C5. The alignment is otherwise stable. There is diffuse [id number] cervical disc degenerative change with loss of disc space, endplate change and mild posterior osteophytes associated with diffuse facet osteoarthritic hypertrophic change with multilevel mild spinal canal and mild neuroforaminal narrowing. There is no fracture. The soft tissues are unremarkable. The visualized upper lung ge[place] are clear. CT/CT cervical spine wo IV con IMPRESSION: No acute intracranial abnormality. No acute abnormality of the cervical spine.
--- NOTE | ~2023-05-16 | CT_ITS ---
EXAMINATION: CT ABDOMEN AND PELVIS WITHOUT CONTRAST CLINICAL INFORMATION: Abdominal pain and distention COMPARISON: Previous CT of the abdomen and pelvis most recent 05/17/2023 TECHNIQUE: Multidetector volumetric imaging was performed from the superior aspect of the liver through the pubic symphysis. Sagittal and coronal reformatted images were obtained on the technologist's workstation. This CT examination was performed using dose optimization techniques as appropriate, variously including the following: *Automated exposure control *Adjustment of mA and/or kV according to patient size (this includes techniques or standardized protocols for targeted exams where dose is matched to indication/reason for exam; i.e. extremities or head) *Use of iterative reconstruction technique DLP: 831 mGy-cm FINDINGS: LUNG BASES: Atelectasis or small infiltrate in the right lower lobe and small right pleural effusion minimally increased from 05/17/2023 exam. Enlarged heart. Pacemaker leads partially visualized. LIVER, GALLBLADDER, AND BILIARY TREE: The liver is normal in size, shape, and attenuation. No focal hepatic lesion or biliary ductal dilatation is present. Shelby attenuation in the gallbladder probably representing vicarious excretion of previously administered IV contrast. PANCREAS: Unremarkable. SPLEEN: Unremarkable. ADRENAL GLANDS: Unremarkable. KIDNEYS AND URETERS: The kidneys are normal in size, shape, and attenuation. No hydronephrosis, hydroureter, or calculi seen. I lateral renal cysts. No imaging follow-up recommended. No perinephric stranding. BLADDER: Unremarkable. GASTROINTESTINAL TRACT: There is stool in the proximal colon. There is evidence of diverticulosis. No evidence of diverticulitis. The stomach is very distended and fluid-filled. Small bowel loops are dilated and fluid-filled. The small bowel is dilated to the cecum. This is new or increased compared to previous exam. Appendix is normal. There is a new small amount of ascites. ABDOMINAL WALL: No significant hernia is appreciated. LYMPH NODES: Normal. VASCULAR: Atherosclerotic disease. No aneurysm. PELVIC VISCERA: Radiation the prostate gland. OSSEOUS STRUCTURES: Recent-appearing right posterior ninth through 11th rib fractures. Degenerative changes of the spine and hip joints. CT/CT abdomen pelvis wo IV con IMPRESSION: New very dilated fluid-filled stomach. New dilated fluid-filled loops of small bowel. Small bowel dilated to the cecum. Differential would include ileus and distal small bowel obstruction. No abnormality of the ileocecal valve suggest the latter seen. Small amount of ascites. Stool in the right colon suggestive of constipation. Diverticulosis. Imaging follow-up recommended. Nasogastric tube placement should be considered to prevent possible aspiration. Increasing atelectasis/consolidation in the right lower lobe and small right pleural effusion. Findings will be communicated by the [place] workflow job setter Hipolito guidelines were followed.
[2023-05-16 22:01] VITALS: BP 124/73; BP 142/74; PULSE 120; PULSE 122; RESP 20; TEMP 36.9; O2SAT 92; O2SAT 97; BMI 32.4
--- NOTE | 2023-05-16 22:37 | ED_ITS ---
HPI - General Adult General Chief complaint: Fall Stated complaint: FALL T-4 DAYS AGO W/2 RIB FXS RUQ/ABD PAIN PER EMS Time Seen by Provider: 05/16/23 22:33 Source: patient Mode of arrival: ambulatory Limitations: no limitations History of Present Illness HPI narrative: Patient with history of AFib on Coumadin was seen here on 05/13 after mechanical fall with 2 rib fractures on the right side today he comes here as he fell again last night in tangled in his socks and now complaining of pain in the right side of the abdomen and a loss of consciousness hit his head to the ground also no nausea no vomiting no fever no neck pain patient drinking eating normally otherwise Related Data Home Medications Medication Instructions Recorded Confirmed acetaminophen 650 mg 650 mg PO Q8H 10/22/20 04/09/23 tablet,extended release (Tylenol Arthritis Pain) multivitamin 1 tab PO DAILY 05/12/21 04/09/23 Previous Rx's Medication Instructions Recorded warfarin 5 mg tablet 5 mg PO DIRECTED #120 tabs 07/28/22 lisinopril 40 mg tablet 40 mg PO DAILY #90 tabs 08/04/22 furosemide 40 mg tablet (Lasix) 80 mg (2 x 40 mg) PO DAILY 90 days 09/04/22 #180 tabs tamsulosin 0.4 mg capsule 0.4 mg PO BEDTIME 90 days #90 caps 02/13/23 sildenafil 100 mg tablet 100 mg PO DAILY PRN sexual 03/13/23 activity 30 days #30 tabs amlodipine 2.5 mg tablet 2.5 mg PO DAILY #90 tabs 04/28/23 oxycodone 5 mg tablet 5 mg PO Q6H PRN pain #20 tabs 05/13/23 Allergies Allergy/AdvReac Type Severity Reaction Status Date / Time No Known Allergies Allergy Verified 05/02/23 11:27 Review of Systems 2 Review of Systems: Yes all other systems are reviewed and are negative [facility] Past Medical History Medical History CHF (congestive heart failure) Nocturnal hypoxemia SHALONDA (obstructive sleep apnea) Peripheral edema Annual physical exam Left tennis elbow Essential hypertension PAF (paroxysmal atrial fibrillation) History of hydrocele Nocturia Bladder outlet obstruction Bladder cancer Prostate cancer Hyperlipidemia HTN (hypertension) 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 Daughter No problems noted. Maternal Grandfather No problems noted. Maternal Grandmother No problems noted. Paternal Grandfather No problems noted. Paternal Grandmother No problems noted. Social History Social History Housing: House Are you a primary adult caregiver to a significant other at home: No Do you presently have visiting nurse or other home services: No Alcohol intake: current Alcohol intake frequency: holidays/special occasions only Alcohol type: wine Patient Tobacco Use Status: Never used Tobacco Smoked in Last 30 Days: No e-Cigarette/Vaping Use: Never Used Use of substances other than those prescribed or required for medical reasons: No Advance Directives: Yes Advance Directives on File: Yes Advance Directives Date on File: 05/02/21 Current occupational status: retired Cognitive needs: No Hearing needs: No Vision needs: Yes Physical Exam ED Vital Signs: Vital Signs - 24 hr 05/16/23 22:01 05/16/23 23:29 Temperature 98.5 F 98.9 F Pulse Rate 122 H 69 Respiratory Rate 20 13 Blood Pressure 124/73 110/65 Pulse Oximetry 92 94 Oxygen Delivery Method Room Air Room Air BMI result Body Mass Index 32.4 Appearance: Alert. Oriented X3. No acute distress. Eyes: PERRLA, No Nystagmus ENT: Pharynx normal. Oral Mucosa moist Neck: Normal inspection. Neck supple. CVS: Normal heart rate and rhythm. Pulses normal. Respiratory: No respiratory distress. Equal air entry bilateral, no wheezing/rales/rhonchi Abdomen: Soft and nontender. Bowel sounds are present, no mass palpable, no CVA tenderness right abdominal wall hematoma Skin: Skin warm and dry. Normal skin color. Normal skin turgor. Extremities: No lower extremity edema. No calf tenderness Neuro: Oriented X 3. No motor deficit. No sensory deficit.No cerebellar signs , cranial nerves II-XII intact Medications Administered Discontinued Medications Generic Name Dose Route Start Last Admin Trade Name Aye PRN Reason Stop Dose Admin Sodium Chloride 1,000 mls @ 999 mls/hr 05/16/23 23:05 05/17/23 00:36 Ns IV 05/17/23 00:05 Infused .Q1H1M ONE Infusion Iohexol 85 ml 05/17/23 00:54 05/17/23 00:55 Iohexol 350 Mg/Ml 100 Ml Infus..Btl IV 05/17/23 00:55 85 ml ONCE ONE Administration Morphine Sulfate 2 mg 05/16/23 23:48 05/16/23 23:53 Morphine Sulfate 2 Mg/Ml Cartridge IVPUSH 05/16/23 23:49 2 mg ONCE ONE Administration Protocol Ondansetron HCl 4 mg 05/16/23 23:48 05/16/23 23:53 Ondansetron Hcl 4 Mg/2 Ml Vial IVPUSH 05/16/23 23:49 4 mg ONCE ONE Administration Medical Decision Making Medical Decision Making [facility] Narrative: Patient status post mechanical fall on Coumadin with right abdominal wall hematoma level showed JB with creatinine increased from 1.19 on 05/13 to 2.18 today patient says been drinking enough fluids , patient is on furosemide which he is not taking for last 2 days. Will admit patient for JB and abdominal wall hematoma hospitalist aware about the CT scan Differential Diagnosis Differential Diagnoses: The differential diagnosis associated with the presentation includes Abdominal wall hematoma/frequent falls/hepatic injury/lung contusion Admission/Observation Consideration of admission/observation: Escalation of care including admission/observation considered Consult Healthcare Provider Management of the patient was discussed with: Hospitalist Lab Data [facility] Lab Attestation statement: I reviewed the patient's lab results. 05/16/23 23:24 05/16/23 23:24 Labs: Lab Results 05/16/23 Range/Units 23:24 WBC 12.8 H (4.8-10.8) X10*3/uL RBC 3.94 L (4.60-5.80) X10*6/uL Hgb 11.5 L (14.0-18.0) g/dl Hct 35.6 L (42.0-52.0) % MCV 90.4 (80.0-98.0) fL MCH 29.2 (27.0-33.0) pg MCHC 32.3 (31.0-36.0) g/dl RDW 12.7 (11.0-16.0) % Plt Count 167 (160-400) X10*3/uL MPV 10.5 (9.4-12.4) fL Immature Gran % (Auto) 0.5 H (0.0-0.4) % Neut % (Auto) 82.8 H (45-73) % Lymph % (Auto) 4.2 L (20-40) % [place] % (Auto) 12.3 H (2-11) % Eos % (Auto) 0.0 (0-4) % Baso % (Auto) 0.2 (0-2) % Lymph # (Auto) 0.5 L (1.2-4.9) X10*3/uL [place] # (Auto) 1.6 H (0.1-1.2) X10*3/uL Eos # (Auto) 0.0 (0.0-0.4) X10*3/uL Baso # (Auto) 0.0 (0.0-0.2) X10*3/uL Abs Immat Gran (auto) 0.06 H (0.00-0.03) X10*3/uL Absolute Neuts (auto) 10.6 H (2.0-8.3) x10*3/uL Absolute Nucleated RBC 0.000 (0.0-0.012) X10*3/uL Nucleated RBC % (auto) 0.0 (0.0-0.2) /100WBC Smear Tech's Comments VERIFIED PT 55.7 H (11.1-13.3) SEC INR 4.6 H (0.9-1.1) Sodium 133 L (135-145) mmol/L Potassium 5.0 (3.3-5.1) mmol/L Chloride 104 (96-108) mmol/L Carbon Dioxide 21 L (22-29) mmol/L Anion Gap 13 (12-20) BUN 70 H (9-16) mg/dL Creatinine 2.18 H (0.5-1.4) mg/dL Estim Creat Clear Calc 24.9 Estimated GFR 29 Random Glucose 119 H (60-115) mg/dL Calcium 9.0 (8.4-10.2) mg/dL Independent Interpretation I performed an independent interpretation of an: CT Scan Radiology Impression Discussion of test interpretation with radiology: I have reviewed the radiologist's reading. Discharge Plan Discharge Clinical Impression: Acute renal failure, Abdominal wall contusion, Right rib fracture Patient Disposition: Admitted As Inpatient
[2023-05-16 23:29] VITALS: BP 110/65; PULSE 69; RESP 13; TEMP 37.2; O2SAT 94
[2023-05-16 23:29] LABS: Basophils Percent Auto 0.2 % (0-2); Hematocrit 35.6 % (42.0-52.0); Hemoglobin 11.5 g/dl (14.0-18.0); Imm Gran Abs Auto 0.06 X10*3/uL (0.00-0.03); Imm Gran Pct Auto 0.5 % (0.0-0.4); Lymphocytes Absolute Auto 0.5 X10*3/uL (1.2-4.9); Lymphocytes Percent Auto 4.2 % (20-40); MANUAL DIFF FLAG SCAN; Mean Corpuscular HGB Conc 32.3 g/dl (31.0-36.0); Mean Corpuscular Hemoglobin 29.2 pg (27.0-33.0); Mean Corpuscular Volume 90.4 fL (80.0-98.0); Mean Platelet Volume 10.5 fL (9.4-12.4); Monocytes Absolute Auto 1.6 X10*3/uL (0.1-1.2); Monocytes Percent Auto 12.3 % (2-11); Neutrophils Absolute Auto 10.6 x10*3/uL (2.0-8.3); Neutrophils Percent Auto 82.8 % (45-73); Platelet Count 167 X10*3/uL (160-400); Red Blood Count 3.94 X10*6/uL (4.60-5.80); Red Cell Distribution Width 12.7 % (11.0-16.0); SCAN SMEAR FLAG 1; White Blood Count 12.8 X10*3/uL (4.8-10.8)
[2023-05-16] MEDS: 0.9 % Sodium Chloride 1,000 ML 999 ML IV (23:29)
[2023-05-16 23:32] LABS: SLIDE REVIEW VERIFIED
[2023-05-16 23:38] LABS: INTERNATIONAL NORM RATIO 4.6 (0.9-1.1); Prothrombin Time 55.7 SEC (11.1-13.3)
[2023-05-16 23:41] LABS: Anion Gap 13 (12-20); Blood Urea Nitrogen 70 mg/dL (9-16); Carbon Dioxide 21 mmol/L (22-29); Chloride 104 mmol/L (96-108); Creatinine Clr Calc Pharmacy 24.9; Estimated Glomerular Filt Rate 29; Glucose Random 119 mg/dL (60-115); Sodium 133 mmol/L (135-145)
[2023-05-16] MEDS: ondansetron HCL 4 MG/2 ML VIAL IVPUSH (23:53)
[2023-05-16] MEDS: Morphine Sulfate 2 MG/ML CARTRIDGE IVPUSH (23:53)
--- NOTE | 2023-05-17 | ECG_ITS ---
Test Reason : chest wall pain Blood Pressure : / mmHG Vent. Rate : 069 BPM Atrial Rate : 069 BPM P-R Int : 000 ms QRS Dur : 176 ms QT Int : 464 ms P-R-T Axes : 000 -88 084 degrees QTc Int : 497 ms Ventricular-paced rhythm Abnormal ECG When compared with ECG of 26-SEP-2017 13:06, No significant changes seen Referred By: Gordy Lopez Electronically Signed By:KELSEY PRADHAN
--- NOTE | 2023-05-17 00:49 | PC.NURSE ---
pt reports not taking his lasix for a few days prior to arrival today
--- NOTE | 2023-05-17 00:51 | PC.NURSE ---
O2 89-90%. placed on 2L NC at this time. now 94%
[2023-05-17] MEDS: iohexoL 350 MG/ML 100 ML INFUS..BTL 85 ML IV (00:55)
[2023-05-17 03:11] LABS: Appearance Urine Clear; Color Urine Yellow; Glucose Urine UA Negative (Negative); Leukocyte Esterase Urine Negative (Negative); Nitrite Urine Negative (Negative); UMIC TRIGGER UACC YES; Urine Blood Trace (Negative); Urine Ketones Negative (Negative); Urine Protein 30 (1+) mg/dL (Neg-Trace)
[2023-05-17 03:14] VITALS: BP 111/55; PULSE 71; RESP 17; O2SAT 95
[2023-05-17 03:15] LABS: Bacteria Urine None Seen (None Seen); RBC Urine 0-2 /HPF (0-2); UACC Culture Trigger YES
--- NOTE | 2023-05-17 05:50 | PC.NURSE ---
hospitalist at bedside for admit
--- NOTE | 2023-05-17 06:00 | PC.NURSE ---
med rec complete. pt reports his has changed some of his meds so she knows more about his medications than he does at this time. will be back later today
[2023-05-17 06:03] VITALS: BP 104/50; PULSE 69; RESP 15; TEMP 37.3; O2SAT 92
[2023-05-17] MEDS: Morphine Sulfate 2 MG/ML CARTRIDGE IVPUSH ×2 (06:49→23:16)
--- NOTE | 2023-05-17 06:53 | P.HPHOSP_ITS ---
History of Present Illness Date of Service: 05/17/23 Attending physician on admission: Gordy Lopez Chief Complaint: RLQ abdominal pain following a fall Patient is a 82 year old pleasant white male with history of PAF, HTN, HLD, CHF, SHALONDA, ED, Prostate cancer, Bladder cancer and recent mechanical fall with resultant 9th & 10th rib fractures and lung contusion for which he was seen in the ED on 05/13 now returns to the Ed complaining of worsening RLQ abdominal pain for last several days. He additionally suffered another fall last night after he got entangled in his socks and reportedly hit his head and now reports rpain in the right side of the abdomen. A CT chest done tonight shows fractures of the posterior lateral right 9th, 10th and 11th ribs with minimal right pleural effusion and associated right lung base consolidation. He is also noted to have retained stool and concerns for right stercoral colitis. Lab work done was notable for elevated INR of 4.6 and acute renal failure with BUN of 70 and creatinine of 2.18 from 37 and 1.19 (05/13/23) respectively. He reports not taking his diuretics and Coumadin since he left the ER (highly doubt it). 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 Daughter No problems noted. Maternal Grandfather No problems noted. Maternal Grandmother No problems noted. Paternal Grandfather No problems noted. Paternal Grandmother No problems noted. Surgical History History of hydrocelectomy Hx of varicose vein stripping Hx of subdural hematoma History of phacoemulsification of cataract of both eyes with intraocular lens implantation Hx of cardiac pacemaker Hx of colonoscopy Hx of parathyroidectomy Hx of cystoscopy Social History Housing: House Are you a primary child care attendant school to a significant other at home: No Do you presently have visiting nurse or other home services: No Alcohol intake: current Alcohol intake frequency: holidays/special occasions only Alcohol type: wine Patient Tobacco Use Status: Never used Tobacco Smoked in Last 30 Days: No e-Cigarette/Vaping Use: Never Used Use of substances other than those prescribed or required for medical reasons: No Advance Directives: Yes Advance Directives on File: Yes Advance Directives Date on File: 05/02/21 Current occupational status: retired Cognitive needs: No Hearing needs: No Vision needs: Yes Meds Allergies Allergy/AdvReac Type Severity Reaction Status Date / Time No Known Allergies Allergy Verified 05/02/23 11:27 Home Medications Medication Instructions Recorded Confirmed Last Taken Type acetaminophen 650 mg 650 mg PO Q6-8H PRN Pain 10/22/20 05/17/23 Unknown History tablet,extended release (Tylenol Arthritis Pain) multivitamin 1 tab PO DAILY 05/12/21 05/17/23 Unknown History Physical Exam 2 Vital Signs and Narrative: Vital Signs: Last Vital Signs Temp 99.1 F 05/17/23 06:03 Pulse 69 05/17/23 06:03 Resp 15 05/17/23 06:03 BP 104/50 L 05/17/23 06:03 Pulse Ox 92 05/17/23 06:03 O2 Del Method Nasal Cannula 05/17/23 06:03 O2 Flow Rate 1 05/17/23 06:03 BMI result Body Mass Index 32.4 General: Well nourished elderly WM. Awake, alert and oriented x 4. No apparent distress Eyes: No pallor or jaundice. PERRLA, EOMI HENT: Moist oral mucus membranes. No oropharyngeal lesions. Neck: Supple. No cervical adenopathy. No JVD Cardiovascular: Irregularly irregular rate and rhythm. Normal heart sounds. No murmurs, rubs or gallops. No JVD. Trace bipedal peripheral edema. Respiratory: Normal respiratory effort with no accessory muscle use. CTAB. , CTA bilaterally Gastrointestinal: Abdomen is soft, non-tender, non-distended. NABS. No hepatosplenomegaly Extremities: No edema. No calf tenderness. Good peripheral pulses Skin: Warm/Dry. No rashes. No mottling. Capillary refill is < 2 seconds Neurological: AAOx4. Intact speech & cognition. Normal gait & balance. CN II - XII grossly intact but not individually tested. No motor or sensory deficits Hematologic: Noted with a huge ecchymosis on the right lower quadrant & right inguinal region concerning for abdominal wall hematoma. Psychiatric: Cooperative. Appropriate mood and affect. Results Labs 05/16/23 23:24 05/16/23 23:24 Labs: Laboratory Results - last 24 hr 05/16/23 12 23:24 02:56 MCV 90.4 MCH 29.2 MCHC 32.3 RDW 12.7 Plt Count 167 MPV 10.5 Immature Gran % (Auto) 0.5 H Neut % (Auto) 82.8 H Lymph % (Auto) 4.2 L [place] % (Auto) 12.3 H Eos % (Auto) 0.0 Baso % (Auto) 0.2 Lymph # (Auto) 0.5 L [place] # (Auto) 1.6 H Eos # (Auto) 0.0 Baso # (Auto) 0.0 Abs Immat Gran (auto) 0.06 H Absolute Neuts (auto) 10.6 H Absolute Nucleated RBC 0.000 Nucleated RBC % (auto) 0.0 Smear Tech's Comments VERIFIED PT 55.7 H INR 4.6 H Anion Gap 13 Estim Creat Clear Calc 24.9 Estimated GFR 29 Random Glucose 119 H Calcium 9.0 Urine Color Yellow Urine Appearance Clear Urine pH 5.0 Ur Specific [place] 1.020 Urine Protein 30 (1+) H Urine Glucose (UA) Negative Urine Ketones Negative Urine Blood Trace H Urine Nitrite Negative Ur Leukocyte Esterase Negative Urine RBC 0-2 Urine WBC 6-10 H Ur Squamous Epith Cells 11-20 Urine Bacteria None Seen Hyaline Casts 3-5 Imaging Radiologist's Impressions: Impressions Abdomen/Pelvis CT 05/17/23 01:18 IMPRESSION: Fractures of the posterior lateral right 9th 10th and 11th ribs. Minimal right pleural effusion with associated right lung base consolidation likely representing atelectasis/scarring/contusion. Early infiltrate considered less likely. Retained stool throughout the colon particularly the right colon with right-sided pericolonic infiltrative change. Consider a right stercoral colitis. Diverticula of the transverse, descending and sigmoid colon without diverticulitis. Fleischner guidelines were followed. Cervical Spine CT 05/17/23 01:18 IMPRESSION: No acute intracranial abnormality. No acute abnormality of the cervical spine. Chest CT 05/17/23 01:18 IMPRESSION: Fractures of the posterior lateral right 9th 10th and 11th ribs. Minimal right pleural effusion with associated right lung base consolidation likely representing atelectasis/scarring/contusion. Early infiltrate considered less likely. Retained stool throughout the colon particularly the right colon with right-sided pericolonic infiltrative change. Consider a right stercoral colitis. Diverticula of the transverse, descending and sigmoid colon without diverticulitis. Fleischner guidelines were followed. Head CT 05/17/23 01:18 IMPRESSION: No acute intracranial abnormality. No acute abnormality of the cervical spine. Assessment and Plan (1) Acute renal failure: Status: Acute (2) Right rib fracture: Status: Acute (3) Abdominal wall contusion: Status: Acute (4) Frequent falls: Status: Acute Plan 82 year old pleasant white male with history of PAF, HTN, HLD, CHF, SHALONDA, ED, Prostate cancer, Bladder cancer and recent mechanical fall with resultant 9th & 10th rib fractures and lung contusion here with 1. Acute renal failure - noted with BUN of 70 and creatinine of 2.18 from 37 and 1.19 (05/13/23) respectively - consider ATN - also possible component of pre-renal azotemia given soft BP - hold Lisinopril and Lasix - monitor - Renal consult if does not improve with these conservative measures 2. Right lower quadrant abdominal pain - with hematoma - admit for pain control - hold Coumadin and monitor INR - PRN analgesics 3. Supratherapeutic INR - INR of 4.6 (target 2-3) - hold Coumadin to 4. Frequent falls - unclear why he is falling so frequently - get PT evaluation - ?? implications on continued Warfarin therapy 5. Multiple rib fractures - noted with fracture right 9, 10 and 11 ribs (non-displaced) - breathing well without splinting DVT: Supratherapeutic INR CODE STATUS: Full code Admission for at least 2 midnights for management of JB, supratherapetic INR and PT eval for unsteady gait. Total time managing care of this patient today: 75 minutes. Quality Stroke Does the patient have a stroke diagnosis?: No VTE Prior VTE?: No VTE Risk Level:: Medical - moderate - high VTE Device Contraindication: N/A - Device Ordered VTE Drug Contraindication: Treatment Not Indicated
[2023-05-17 08:00] VITALS: BP 95/58; PULSE 69; RESP 15; TEMP 37; O2SAT 91
[2023-05-17] MEDS: 0.9 % Sodium Chloride 500 ML IV (08:01)
--- NOTE | 2023-05-17 08:47 | PHA.MEDREC ---
Pharmacy Consult ? Medication Reconciliation Pharmacy has completed the medication reconciliation. Spoke to patient and his at bedside. Patient states he stopped taking his warfarin after he was told to during a visit to the ED this past Sunday 05/13. His normal dosing schedule for warfarin was 5mg daily EXCEPT 2.5mg on Sunday and Sunday. His states he is not very good about taking his medications and hasn't been taking the water pill like he should, that's why he is here. Patient confirmed he takes his BP meds and tamsulosin at night, except the OTC meds and lasix he takes in the morning.
[2023-05-17 09:21] VITALS: BP 107/60; PULSE 64; RESP 16; TEMP 36.3; O2SAT 92
[2023-05-17 09:44] LABS: Hematocrit 33.6 % (42.0-52.0); Hemoglobin 11.1 g/dl (14.0-18.0); Mean Corpuscular Hemoglobin 29.9 pg (27.0-33.0); Mean Corpuscular Volume 90.6 fL (80.0-98.0); Mean Platelet Volume 10.5 fL (9.4-12.4); Platelet Count 161 X10*3/uL (160-400); Red Blood Count 3.71 X10*6/uL (4.60-5.80); White Blood Count 11.2 X10*3/uL (4.8-10.8)
[2023-05-17 09:53] LABS: INTERNATIONAL NORM RATIO 4.3 (0.9-1.1); Prothrombin Time 52.7 SEC (11.1-13.3)
[2023-05-17 09:56] LABS: Anion Gap 13 (12-20); Blood Urea Nitrogen 68 mg/dL (9-16); Calcium 8.5 mg/dL (8.4-10.2); Carbon Dioxide 20 mmol/L (22-29); Chloride 106 mmol/L (96-108); Creatinine Clr Calc Pharmacy 26.2; Estimated Glomerular Filt Rate 31; Glucose Random 105 mg/dL (60-115); Sodium 134 mmol/L (135-145)
[2023-05-17] MEDS: Morphine Sulfate 4 MG/ML CARTRIDGE 2 MG IVPUSH ×2 (09:57→16:51)
--- NOTE | 2023-05-17 09:57 | MHC.CM.PN ---
Addendum entered by Lissett Donato 05/17/23 11:07: A copy of the pts HCP has been requested. Original Note: IMM 05/17/23 Patient lives with . He is independnet with all functional mobility. PT rec Home w services. Preference of [facility] obtained. A referral has been sent to [facility]. DP home w [facility]. Pts will transport home.
[2023-05-17] MEDS: Docusate Sodium 100 MG CAPSULE PO ×2 (09:58→19:58)
[2023-05-17] MEDS: Multivitamin TABLET 1 TAB PO (09:58)
[2023-05-17] MEDS: Tamsulosin HCL 0.4 MG CAPSULE PO ×2 (09:58→19:58)
--- NOTE | 2023-05-17 14:03 | PM.EVENT ---
Event Note Date of Service: 05/17/23 Event Note: 82 year old pleasant white male with history of PAF, HTN, HLD, CHF, SHALONDA, ED, Prostate cancer, Bladder cancer and recent mechanical fall with resultant 9th & 10th rib fractures and lung contusion admitted for JB and abdominal hematoma 1. JB on CKD3 CPK low 110 possible component of pre-renal azotemia given soft BP - hold Lisinopril and Lasix - monitor renal function - Renal consult if does not improve with these conservative measures 2. Right lower quadrant abdominal pain likely due to fall and hematoma (see pictures) - admit for pain control - hold Coumadin and monitor INR - PRN analgesics 3. Supratherapeutic INR - INR of 4.3 (target 2-3) - hold Coumadin - follow INR daily 4. Frequent falls pt says he strained his shoulder carrying something heavy which caused him to slip the first time, then he slipped in his socks on the hardwood floor seen by PT - rec home with PT services when medically ready - ?? implications on continued Warfarin therapy 5. Multiple rib fractures - noted with fracture right 9, 10 and 11 ribs (non-displaced) - breathing well without splinting - IS 6. stercoral colitis will start bowel regimen 7. HTN bp soft hold lisinpril, lasix, norvasc follow bp closely 8. acute hyponatremia, mild ? due to diuretics improving, NA 134 DVT: Supratherapeutic INR, coumadin on hold CODE STATUS: Full code attending - dr. barbour Ongoing inpatient stay for management of JB, supratherapetic INR and PT eval for unsteady gait, closely monitoring of INR/blood pressure Time Spent With Patient Time: Total time managing care of this patient today ____ minutes.
[2023-05-17] MEDS: Lactated Ringers 1,000 ML 100 ML IVCONT (14:10)
[2023-05-17 15:26] VITALS: BP 115/64; PULSE 70; RESP 17; TEMP 36.6; O2SAT 94
[2023-05-17 19:36] VITALS: BP 122/57; PULSE 69; RESP 17; TEMP 36.7; O2SAT 93
[2023-05-17] MEDS: oxyCODONE HCl Immed Release 5 MG TABLET PO (19:57)
[2023-05-17] MEDS: Sennosides 8.6 MG TABLET 17.2 MG PO (19:58)
[2023-05-17] MEDS: 0.9 % Sodium Chloride Flush 3 ML SYRINGE IVFLUSH (19:58)
[2023-05-18] MEDS: Lactated Ringers 1,000 ML 100 ML IVCONT ×2 (01:09→09:41)
[2023-05-18 03:53] VITALS: BP 118/59; PULSE 69; RESP 18; TEMP 36.7; O2SAT 94
[2023-05-18] MEDS: Morphine Sulfate 2 MG/ML CARTRIDGE IVPUSH ×3 (06:17→21:43)
[2023-05-18 06:25] LABS: Hematocrit 33.6 % (42.0-52.0); Hemoglobin 11.1 g/dl (14.0-18.0); Mean Corpuscular Hemoglobin 29.8 pg (27.0-33.0); Mean Corpuscular Volume 90.3 fL (80.0-98.0); Mean Platelet Volume 10.9 fL (9.4-12.4); Platelet Count 161 X10*3/uL (160-400); Red Blood Count 3.72 X10*6/uL (4.60-5.80); White Blood Count 6.9 X10*3/uL (4.8-10.8)
[2023-05-18 06:28] LABS: Prothrombin Time 48.9 SEC (11.1-13.3)
[2023-05-18 06:36] LABS: Anion Gap 12 (12-20); Blood Urea Nitrogen 67 mg/dL (9-16); Calcium 8.5 mg/dL (8.4-10.2); Carbon Dioxide 19 mmol/L (22-29); Chloride 109 mmol/L (96-108); Creatinine Clr Calc Pharmacy 33.1; Estimated Glomerular Filt Rate 40; Glucose Random 99 mg/dL (60-115); Sodium 135 mmol/L (135-145)
[2023-05-18 07:16] VITALS: BP 117/54; PULSE 70; RESP 16; TEMP 36.6; O2SAT 92
[2023-05-18] MEDS: 0.9 % Sodium Chloride Flush 3 ML SYRINGE IVFLUSH ×3 (09:41→21:31)
[2023-05-18] MEDS: Multivitamin TABLET 1 TAB PO (09:41)
[2023-05-18] MEDS: Docusate Sodium 100 MG CAPSULE PO ×2 (09:41→21:30)
[2023-05-18] MEDS: polyethylene glycoL 3350 17 GM POWD.PACK PO (09:41)
[2023-05-18 11:06] VITALS: BP 117/54; PULSE 70; O2SAT 92
[2023-05-18] MEDS: Lactulose 20 GM/30 ML SOLUTION PO (12:09)
--- NOTE | 2023-05-18 12:29 | MHC.CM.PN ---
Per MD rounds pt not cleared for dc today. He is being weaned off O2. He may dc tomorrow DP [facility] will transport. [facility] notified of possible discharge tomorrow.
--- NOTE | 2023-05-18 12:40 | P.PNIM_ITS ---
Subjective Subjective Date of Service: 05/18/23 Interval History: seen and examined this morning follow up for fall, JB still feeling sore on right side, no other complaints no sob, no cough Review of Systems Review of Systems: Yes all other systems are reviewed and are negative Constitutional Constitutional: Denies chills and Denies fever(s) Cardiovascular Cardiovascular: Denies palpitations and Denies dyspnea Respiratory Respiratory: Denies cough and Denies dyspnea Endocrine Endocrine: Denies palpitations Physical Exam 2 Vital Signs: Vital Signs: Last Vital Signs Temp 97.9 F 05/18/23 07:16 Pulse 70 05/18/23 11:06 Resp 16 05/18/23 07:16 BP 117/54 L 05/18/23 11:06 Pulse Ox 92 05/18/23 11:06 O2 Del Method Nasal Cannula 05/18/23 07:16 O2 Flow Rate 1 05/18/23 07:16 BMI result Body Mass Index 32.4 Const: General: cooperative, comfortable, alert and awake Nutritional Appearance: overweight Orientation/consciousness: patient oriented x3 Resp: Effort & Inspection: able to speak in complete sentences, no respiratory distress and no use of accessory muscles Cardio: Rate: regular rate GI: Other: softly distended, no guarding, no rebound; +BS Palpation (GI): Soft to palpation Skin: Other: bruising similar to yesterday right side, groin and left leg Neuro: General: patient oriented x3, moves all extremities and CN's II-XI intact bilaterally Objective Data Active Medications Acetaminophen (Acetaminophen 325 Mg Tablet) 650 mg PO Q6H PRN PRN Reason: Pain, Mild (Pain Scale 1-3) Al Hydroxide/Mg Hydroxide (Magnesium Hydrox/Alum Hydrox 30 Ml Oral.Susp) 30 ml PO Q4H PRN PRN Reason: Heartburn/Nausea Docusate Sodium (Docusate Sodium 100 Mg Capsule) 100 mg PO BID [facility] Last Admin: 05/18/23 09:41 Dose: 100 mg Documented By: ASTER Lactated Ringer's (Lr) 1,000 mls @ 100 mls/hr IVCONT .Q10H [facility] Last Admin: 05/18/23 09:41 Dose: 100 mls/hr Documented By: ASTER Melatonin (Melatonin 3 Mg Tablet) 6 mg PO BEDTIME PRN PRN Reason: Insomnia Morphine Sulfate (Morphine Sulfate 2 Mg/Ml Cartridge) 2 mg IVPUSH Q4H PRN; Protocol PRN Reason: Pain, Severe (Pain Scale 7-10) Last Admin: 05/18/23 10:56 Dose: 2 mg Documented By: ASTER Multivitamins/Vitamin C (Multivitamin Tablet) 1 tab PO DAILY [facility] Last Admin: 05/18/23 09:41 Dose: 1 tab Documented By: ASTER Ondansetron HCl (Ondansetron Hcl 4 Mg/2 Ml Vial) 4 mg IVPUSH Q8H PRN PRN Reason: Nausea and Vomiting Oxycodone HCl (Oxycodone Hcl Immed Release 5 Mg Tablet) 5 mg PO Q6H PRN PRN Reason: Pain, Moderate(Pain Scale 4-6) Last Admin: 05/17/23 19:57 Dose: 5 mg Documented By: RONI Polyethylene Glycol (Polyethylene Glycol 3350 17 Gm Powd.Pack) 17 gm PO DAILY [facility] Last Admin: 05/18/23 09:41 Dose: 17 gm Documented By: ASTER Senna (Sennosides 8.6 Mg Tablet) 17.2 mg PO BEDTIME [facility] Last Admin: 05/17/23 19:58 Dose: 17.2 mg Documented By: RONI Sodium Chloride (0.9 % Sodium Chloride Flush 3 Ml Syringe) 3 ml IVFLUSH QSHIFT [facility] Last Admin: 05/18/23 09:41 Dose: 3 ml Documented By: ASTER Tamsulosin HCl (Tamsulosin Hcl 0.4 Mg Capsule) 0.4 mg PO BEDTIME [facility] Last Admin: 05/17/23 19:58 Dose: 0.4 mg Documented By: RONI Labs 05/18/23 06:04 05/18/23 06:04 Labs: Laboratory Results - last 24 hr 05/18/23 06:04 MCV 90.3 MCH 29.8 MCHC 33.0 RDW 13.0 Plt Count 161 MPV 10.9 Absolute Nucleated RBC 0.000 Nucleated RBC % (auto) 0.0 PT 48.9 H INR 4.0 H Anion Gap 12 Estim Creat Clear Calc 33.1 Estimated GFR 40 Random Glucose 99 Calcium 8.5 Microbiology Microbiology Results: Microbiology 05/17/23 Unknown Urine Culture - Final Urine clean catch - Urine allen top Assessment and Plan (1) Right rib fracture: Status: Acute (2) Abdominal wall contusion: Status: Acute (3) Acute renal failure: Status: Acute Plan 82 year old pleasant white male with history of PAF, HTN, HLD, CHF, SHALONDA, ED, Prostate cancer, Bladder cancer and recent mechanical fall with resultant 9th & 10th rib fractures and lung contusion here with 1. JB on CKD3 CPK low 110 possible component of pre-renal azotemia given soft BP hold Lisinopril and Lasix creatinine improving but not back to baseline 2. Right lower quadrant abdominal pain likely due to fall and hematoma (see pictures) H/H has remained stable hold Coumadin and monitor INR PRN analgesics 3. Supratherapeutic INR/paraoxysmal atrial fibrillation INR of 4.0 (target 2-3) hold Coumadin H/H stable follow INR daily 4. Frequent falls pt says he strained his shoulder carrying something heavy which caused him to slip the first time, then he slipped in his socks on the hardwood floor seen by PT - rec home with PT services when medically ready 5. Multiple rib fractures right 9, 10 and 11 ribs (non-displaced) breathing well without splinting continue pain control, IS 6. stercoral colitis continue bowel regimen 7. HTN bp soft hold lisinpril, lasix, norvasc follow bp closely 8. acute hyponatremia, mild resolved DVT: Supratherapeutic INR, coumadin on hold CODE STATUS: Full code attending - dr. barbour Ongoing inpatient stay for management of JB, supratherapetic INR and PT eval for unsteady gait, closely monitoring of INR/blood pressure Quality Stroke Does the patient have a stroke diagnosis?: No VTE Prior VTE?: No VTE Risk Level:: Medical - moderate - high VTE Device Contraindication: N/A - Device Ordered VTE Drug Contraindication: Treatment Not Indicated
[2023-05-18 15:49] VITALS: BP 110/60; PULSE 69; RESP 18; TEMP 36.3; O2SAT 93
[2023-05-18] MEDS: oxyCODONE HCl Immed Release 5 MG TABLET PO (18:15)
[2023-05-18 19:59] VITALS: BP 123/57; PULSE 69; RESP 18; TEMP 36.1; O2SAT 92
[2023-05-18] MEDS: Sennosides 8.6 MG TABLET 17.2 MG PO (21:30)
[2023-05-18] MEDS: Tamsulosin HCL 0.4 MG CAPSULE PO (21:30)
[2023-05-19] MEDS: Acetaminophen 325 MG TABLET 650 MG PO (03:17)
[2023-05-19] MEDS: oxyCODONE HCl Immed Release 5 MG TABLET PO (03:18)
[2023-05-19] MEDS: Melatonin 3 MG TABLET 6 MG PO (03:23)
[2023-05-19 03:59] VITALS: BP 128/58; PULSE 80; RESP 16; TEMP 36.6; O2SAT 93
[2023-05-19] MEDS: ondansetron HCL 4 MG/2 ML VIAL IVPUSH (05:55)
[2023-05-19 06:17] LABS: INTERNATIONAL NORM RATIO 4.6 (0.9-1.1); Prothrombin Time 55.9 SEC (11.1-13.3)
[2023-05-19 07:44] VITALS: BP 112/65; PULSE 68; RESP 18; TEMP 36.8; O2SAT 94
[2023-05-19] MEDS: Multivitamin TABLET 1 TAB PO (09:15)
[2023-05-19] MEDS: Docusate Sodium 100 MG CAPSULE PO ×2 (09:15→21:05)
[2023-05-19] MEDS: polyethylene glycoL 3350 17 GM POWD.PACK PO (09:15)
[2023-05-19] MEDS: 0.9 % Sodium Chloride Flush 3 ML SYRINGE IVFLUSH ×3 (09:15→21:05)
--- NOTE | 2023-05-19 10:14 | HO.PM.IMPN ---
Subjective Subjective Date of Service: 05/19/23 Interval History: seen and examined this morning follow up for fall, JB still feeling sore on right side complaining of constipation no sob, no cough Review of Systems Review of Systems: Yes all other systems are reviewed and are negative Constitutional Constitutional: Denies chills and Denies fever(s) Cardiovascular Cardiovascular: Denies palpitations and Denies dyspnea Respiratory Respiratory: Denies cough and Denies dyspnea Endocrine Endocrine: Denies palpitations Physical Exam Vital Signs: Vital Signs: Last Vital Signs Temp 98.2 F 05/19/23 07:44 Pulse 68 05/19/23 07:44 Resp 18 05/19/23 07:44 BP 112/65 05/19/23 07:44 Pulse Ox 94 05/19/23 07:44 O2 Del Method Room Air 05/19/23 07:44 O2 Flow Rate 1 05/18/23 07:16 BMI result Body Mass Index 32.4 Appearing in no acute distress lung sounds are clear to auscultation heart regular rate rhythm, clear S1, S2 positive bowel sounds, abdomen is soft, nontender neuro patient is alert x3, no focal deficits Hematoma to right side abd wrapping around to back, Left thigh hematoma Objective Data Active Medications Acetaminophen (Acetaminophen 325 Mg Tablet) 650 mg PO Q6H PRN PRN Reason: Pain, Mild (Pain Scale 1-3) Last Admin: 05/19/23 03:17 Dose: 650 mg Documented By: GUZMAN Al Hydroxide/Mg Hydroxide (Magnesium Hydrox/Alum Hydrox 30 Ml Oral.Susp) 30 ml PO Q4H PRN PRN Reason: Heartburn/Nausea Docusate Sodium (Docusate Sodium 100 Mg Capsule) 100 mg PO BID [facility] Last Admin: 05/19/23 09:15 Dose: 100 mg Documented By: KIANA Melatonin (Melatonin 3 Mg Tablet) 6 mg PO BEDTIME PRN PRN Reason: Insomnia Last Admin: 05/19/23 03:23 Dose: 6 mg Documented By: GUZMAN Morphine Sulfate (Morphine Sulfate 2 Mg/Ml Cartridge) 2 mg IVPUSH Q4H PRN; Protocol PRN Reason: Pain, Severe (Pain Scale 7-10) Last Admin: 05/18/23 21:43 Dose: 2 mg Documented By: GUZMAN Multivitamins/Vitamin C (Multivitamin Tablet) 1 tab PO DAILY [facility] Last Admin: 05/19/23 09:15 Dose: 1 tab Documented By: KIANA Ondansetron HCl (Ondansetron Hcl 4 Mg/2 Ml Vial) 4 mg IVPUSH Q8H PRN PRN Reason: Nausea and Vomiting Last Admin: 05/19/23 05:55 Dose: 4 mg Documented By: GUZMAN Oxycodone HCl (Oxycodone Hcl Immed Release 5 Mg Tablet) 5 mg PO Q6H PRN PRN Reason: Pain, Moderate(Pain Scale 4-6) Last Admin: 05/19/23 03:18 Dose: 5 mg Documented By: GUZMAN Polyethylene Glycol (Polyethylene Glycol 3350 17 Gm Powd.Pack) 17 gm PO DAILY [facility] Last Admin: 05/19/23 09:15 Dose: 17 gm Documented By: KIANA Senna (Sennosides 8.6 Mg Tablet) 17.2 mg PO BEDTIME [facility] Last Admin: 05/18/23 21:30 Dose: 17.2 mg Documented By: GUZMAN Sodium Chloride (0.9 % Sodium Chloride Flush 3 Ml Syringe) 3 ml IVFLUSH QSHIFT [facility] Last Admin: 05/19/23 09:15 Dose: 3 ml Documented By: KIANA Tamsulosin HCl (Tamsulosin Hcl 0.4 Mg Capsule) 0.4 mg PO BEDTIME [facility] Last Admin: 05/18/23 21:30 Dose: 0.4 mg Documented By: GUZMAN Labs 05/18/23 06:04 05/18/23 06:04 Labs: Laboratory Results - last 24 hr 05/19/23 05:27 Hold Purple Top SEE NOTE PT 55.9 H INR 4.6 H Microbiology Microbiology Results: Microbiology 05/17/23 Unknown Urine Culture - Final Urine clean catch - Urine allen top Assessment and Plan (1) Right rib fracture: Status: Acute (2) Abdominal wall contusion: Status: Acute (3) Acute renal failure: Status: Acute Plan 82 year old pleasant white male with history of PAF, HTN, HLD, CHF, SHALONDA, ED, Prostate cancer, Bladder cancer and recent mechanical fall with resultant 9th & 10th rib fractures and lung contusion here with JB on CKD3. resolving possible component of pre-renal azotemia given soft BP hold Lisinopril and Lasix for now creatinine improving but not back to baseline Right lower quadrant abdominal pain likely due to fall and hematoma H/H has remained stable hold Coumadin and monitor INR PRN analgesics Supratherapeutic INR/paraoxysmal atrial fibrillation INR of 4.6 (target 2-3) hold Coumadin H/H stable follow INR daily stercoral colitis continue bowel regimen fleets enema Frequent falls pt says he strained his shoulder carrying something heavy which caused him to slip the first time, then he slipped in his socks on the hardwood floor seen by PT - rec home with PT services when medically ready Multiple rib fractures right 9, 10 and 11 ribs (non-displaced) breathing well without splinting continue pain control, IS HTN bp soft hold lisinopril, lasix, norvasc follow bp closely Acute hyponatremia, mild resolved DVT: Supratherapeutic INR, coumadin on hold CODE STATUS: Full code attending Dr. Nava Ongoing inpatient stay for management of JB, supratherapetic INR and PT eval for unsteady gait, closely monitoring of INR/blood pressure Quality Stroke Does the patient have a stroke diagnosis?: No VTE Prior VTE?: No VTE Risk Level:: Medical - moderate - high VTE Device Contraindication: N/A - Device Ordered VTE Drug Contraindication: Treatment Not Indicated
[2023-05-19 15:16] VITALS: BP 119/62; PULSE 86; RESP 18; TEMP 36.3; O2SAT 93
[2023-05-19] MEDS: Mineral OiL enema 133 ML ENEMA PR (16:54)
[2023-05-19 19:30] VITALS: BP 123/63; PULSE 70; RESP 18; TEMP 36.3; O2SAT 93
[2023-05-19] MEDS: Sennosides 8.6 MG TABLET 17.2 MG PO (21:05)
[2023-05-19] MEDS: Tamsulosin HCL 0.4 MG CAPSULE PO (21:05)
[2023-05-20] MEDS: Morphine Sulfate 2 MG/ML CARTRIDGE IVPUSH ×2 (00:38→08:47)
[2023-05-20 00:47] VITALS: BP 123/61; PULSE 70; RESP 19; TEMP 36.6; O2SAT 93
[2023-05-20] MEDS: oxyCODONE HCl Immed Release 5 MG TABLET PO (02:38)
[2023-05-20] MEDS: Acetaminophen 325 MG TABLET 650 MG PO (02:39)
[2023-05-20] MEDS: ondansetron HCL 4 MG/2 ML VIAL IVPUSH (02:58)
[2023-05-20] MEDS: Magnesium Hydrox/Alum Hydrox 30 ML ORAL.SUSP PO ×2 (04:13→08:41)
[2023-05-20 07:09] LABS: Prothrombin Time 72.3 SEC (11.1-13.3)
[2023-05-20 07:17] VITALS: BP 109/93; PULSE 64; RESP 18; TEMP 36.2; O2SAT 93
[2023-05-20 08:19] LABS: INTERNATIONAL NORM RATIO 5.9 (0.9-1.1)
[2023-05-20] MEDS: 0.9 % Sodium Chloride Flush 3 ML SYRINGE IVFLUSH ×2 (08:37→20:38)
[2023-05-20] MEDS: Multivitamin TABLET 1 TAB PO (08:41)
[2023-05-20] MEDS: polyethylene glycoL 3350 17 GM POWD.PACK PO (08:41)
[2023-05-20] MEDS: Docusate Sodium 100 MG CAPSULE PO (08:41)
[2023-05-20 08:51] LABS: MANUAL DIFF FLAG NO
[2023-05-20 08:57] LABS: Basophils Percent Auto 0.5 % (0-2); Hemoglobin 12.9 g/dl (14.0-18.0); Imm Gran Abs Auto 0.04 X10*3/uL (0.00-0.03); Imm Gran Pct Auto 0.7 % (0.0-0.4); Lymphocytes Absolute Auto 0.5 X10*3/uL (1.2-4.9); Lymphocytes Percent Auto 8.3 % (20-40); Mean Corpuscular HGB Conc 33.1 g/dl (31.0-36.0); Mean Corpuscular Hemoglobin 29.3 pg (27.0-33.0); Mean Corpuscular Volume 88.4 fL (80.0-98.0); Mean Platelet Volume 10.3 fL (9.4-12.4); Monocytes Absolute Auto 0.9 X10*3/uL (0.1-1.2); Monocytes Percent Auto 16.2 % (2-11); Neutrophils Absolute Auto 4.2 x10*3/uL (2.0-8.3); Neutrophils Percent Auto 74.3 % (45-73); Platelet Count 240 X10*3/uL (160-400); Red Blood Count 4.41 X10*6/uL (4.60-5.80); Red Cell Distribution Width 12.6 % (11.0-16.0); White Blood Count 5.7 X10*3/uL (4.8-10.8)
[2023-05-20 09:05] LABS: Lactic Acid 1.4 mmol/L (0.5-2.0)
[2023-05-20 09:08] LABS: Anion Gap 17 (12-20); Blood Urea Nitrogen 59 mg/dL (9-16); Calcium 9.8 mg/dL (8.4-10.2); Carbon Dioxide 21 mmol/L (22-29); Chloride 108 mmol/L (96-108); Estimated Glomerular Filt Rate 55; Glucose Random 136 mg/dL (60-115); Potassium 4.6 mmol/L (3.3-5.1); Sodium 141 mmol/L (135-145)
--- NOTE | 2023-05-20 12:20 | P.PNIM_ITS ---
Subjective Subjective Date of Service: 05/20/23 Interval History: follow up for fall, JB complaining of constipation and abdominal distension no sob, no cough Review of Systems Review of Systems: Yes all other systems are reviewed and are negative Constitutional Constitutional: Denies chills and Denies fever(s) Cardiovascular Cardiovascular: Denies palpitations and Denies dyspnea Respiratory Respiratory: Denies cough and Denies dyspnea Endocrine Endocrine: Denies palpitations Physical Exam 2 Vital Signs: Vital Signs: Last Vital Signs Temp 97.1 F 05/20/23 07:17 Pulse 64 05/20/23 07:17 Resp 18 05/20/23 07:17 BP 109/93 H 05/20/23 07:17 Pulse Ox 93 05/20/23 07:17 O2 Del Method Room Air 05/20/23 07:17 O2 Flow Rate 1 05/18/23 07:16 BMI result Body Mass Index 32.4 Appearing in no acute distress lung sounds are clear to auscultation heart regular rate rhythm, clear S1, S2 Absent bowel sounds, distended neuro patient is alert x3, no focal deficits Objective Data Active Medications Acetaminophen (Acetaminophen 325 Mg Tablet) 650 mg PO Q6H PRN PRN Reason: Pain, Mild (Pain Scale 1-3) Last Admin: 05/20/23 02:39 Dose: 650 mg Documented By: GUZMAN Al Hydroxide/Mg Hydroxide (Magnesium Hydrox/Alum Hydrox 30 Ml Oral.Susp) 30 ml PO Q4H PRN PRN Reason: Heartburn/Nausea Last Admin: 05/20/23 08:41 Dose: 30 ml Documented By: SUSANNAH Docusate Sodium (Docusate Sodium 100 Mg Capsule) 100 mg PO BID [facility] Last Admin: 05/20/23 08:41 Dose: 100 mg Documented By: SUSANNAH Melatonin (Melatonin 3 Mg Tablet) 6 mg PO BEDTIME PRN PRN Reason: Insomnia Last Admin: 05/19/23 03:23 Dose: 6 mg Documented By: GUZMAN Morphine Sulfate (Morphine Sulfate 2 Mg/Ml Cartridge) 2 mg IVPUSH Q4H PRN; Protocol PRN Reason: Pain, Severe (Pain Scale 7-10) Last Admin: 05/20/23 08:47 Dose: 2 mg Documented By: SUSANNAH Multivitamins/Vitamin C (Multivitamin Tablet) 1 tab PO DAILY [facility] Last Admin: 05/20/23 08:41 Dose: 1 tab Documented By: SUSANNAH Ondansetron HCl (Ondansetron Hcl 4 Mg/2 Ml Vial) 4 mg IVPUSH Q8H PRN PRN Reason: Nausea and Vomiting Last Admin: 05/20/23 02:58 Dose: 4 mg Documented By: GUZMAN Oxycodone HCl (Oxycodone Hcl Immed Release 5 Mg Tablet) 5 mg PO Q6H PRN PRN Reason: Pain, Moderate(Pain Scale 4-6) Last Admin: 05/20/23 02:38 Dose: 5 mg Documented By: GUZMAN Polyethylene Glycol (Polyethylene Glycol 3350 17 Gm Powd.Pack) 17 gm PO DAILY [facility] Last Admin: 05/20/23 08:41 Dose: 17 gm Documented By: SUSANNAH Senna (Sennosides 8.6 Mg Tablet) 17.2 mg PO BEDTIME [facility] Last Admin: 05/19/23 21:05 Dose: 17.2 mg Documented By: GUZMAN Sodium Chloride (0.9 % Sodium Chloride Flush 3 Ml Syringe) 3 ml IVFLUSH QSHIFT [facility] Last Admin: 05/20/23 08:37 Dose: 3 ml Documented By: SUSANNAH Tamsulosin HCl (Tamsulosin Hcl 0.4 Mg Capsule) 0.4 mg PO BEDTIME [facility] Last Admin: 05/19/23 21:05 Dose: 0.4 mg Documented By: GUZMAN Labs 05/20/23 08:47 05/20/23 08:46 Labs: Laboratory Results - last 24 hr 05/20/23 05/20/23 05/20/23 05:35 08:46 08:47 MCV 88.4 MCH 29.3 MCHC 33.1 RDW 12.6 Plt Count 240 D MPV 10.3 Immature Gran % (Auto) 0.7 H Neut % (Auto) 74.3 H Lymph % (Auto) 8.3 L [place] % (Auto) 16.2 H Eos % (Auto) 0.0 Baso % (Auto) 0.5 Lymph # (Auto) 0.5 L [place] # (Auto) 0.9 Eos # (Auto) 0.0 Baso # (Auto) 0.0 Abs Immat Gran (auto) 0.04 H Absolute Neuts (auto) 4.2 Absolute Nucleated RBC 0.000 Nucleated RBC % (auto) 0.0 Hold Purple Top SEE NOTE PT 72.3 H D INR 5.9 H* Anion Gap 17 Cancelled Estim Creat Clear Calc 43.0 Cancelled Estimated GFR 55 Cancelled Random Glucose 136 H Cancelled Lactic Acid 1.4 Calcium 9.8 D Cancelled Assessment and Plan (1) Right rib fracture: Status: Acute (2) Abdominal wall contusion: Status: Acute (3) Acute renal failure: Status: Acute Plan 82 year old pleasant white male with history of PAF, HTN, HLD, CHF, SHALONDA, ED, Prostate cancer, Bladder cancer and recent mechanical fall with resultant 9th & 10th rib fractures and lung contusion here with SBO NGT Placed to [facility] General surgery consulted NPO for now Supratherapeutic INR/paraoxysmal atrial fibrillation INR of 5.9 (target 2-3) continue to hold Coumadin H/H stable follow INR daily vitamin K 2.5 mg now in ligh tof SBO and placement of NGT JB on CKD3. resolving possible component of pre-renal azotemia given soft BP hold Lisinopril and Lasix for now creatinine improving but not back to baseline Right lower quadrant abdominal pain likely due to fall and hematoma H/H has remained stable hold Coumadin and monitor INR PRN analgesics stercoral colitis continue bowel regimen fleets enema Frequent falls pt says he strained his shoulder carrying something heavy which caused him to slip the first time, then he slipped in his socks on the hardwood floor seen by PT - rec home with PT services when medically ready Multiple rib fractures right 9, 10 and 11 ribs (non-displaced) breathing well without splinting continue pain control, IS HTN bp soft hold lisinopril, lasix, norvasc follow bp closely Acute hyponatremia, mild resolved DVT: Supratherapeutic INR, coumadin on hold CODE STATUS: Full code attending Dr. Nava Ongoing inpatient stay for management of JB, supratherapetic INR and PT eval for unsteady gait, closely monitoring of INR/blood pressure Quality Stroke Does the patient have a stroke diagnosis?: No VTE Prior VTE?: No VTE Risk Level:: Medical - moderate - high VTE Device Contraindication: N/A - Device Ordered VTE Drug Contraindication: Treatment Not Indicated
--- NOTE | 2023-05-20 12:54 | P.CONGS_ITS ---
History of Present Illness Consult details Consult date: 05/20/23 Reason for consult: other (Abdominal distension, 3 rib fractures after a fall while anticoagulated) Requesting physician: Raeann Cristobal Narrative: The pt is an 82yo man on Coumadin for afib who fell on 05/12/23 when getting tangled in his socks. He is on Coumadin for PAF. He also has a history of obstructive sleep apnea, HTN, tricuspid insufficiency, LE edema. The patient presented to the emergency department here on 05/13/2023 after a fall. He was discharged home after evaluation. At that visit, he was supratherapeutic on his Coumadin and was diagnosed with 3 rib fractures including a pulmonary contusion. However, the patient was satting well according to EMR which was taken into account when he was discharged home. The patient return to the emergency department on 05/16/2023 with worsening pain and admitted to the hospitalist service. Patient has had ongoing abdominal distension and I was asked to evaluate the patient because of trauma, anticoagulation and concerns raised by the radiologist about possible right- sided colon stercoral colitis given the stool burden. The patient is accompanied by his at the bedside and daughter. Patient gave me permission to speak in front of them and examined him with them present. The patient reports he is fall in the bathtub after becoming unbalanced while trying to turn on the water with his left arm in an awkward position due to a right shoulder injury that occurred while moving stuff in his car the prior day. He continues to report deltoid pain that is improving. He continues to have right-sided chest and abdominal pain. He notes he is not passing gas and it has been almost a week, possibly longer without a bowel movement. He notes his abdominal bloating has affected his ability to eat and drink noting that he really was not eating for possibly more than a week as well. 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 Daughter No problems noted. Maternal Grandfather No problems noted. Maternal Grandmother No problems noted. Paternal Grandfather No problems noted. Paternal Grandmother No problems noted. Surgical History Surgical History History of hydrocelectomy Hx of varicose vein stripping Hx of subdural hematoma History of phacoemulsification of cataract of both eyes with intraocular lens implantation Hx of cardiac pacemaker Hx of colonoscopy Hx of parathyroidectomy Hx of cystoscopy Social History Social History Household Members: Spouse Housing: House Are you a primary client care specialist to a significant other at home: No Do you presently have visiting nurse or other home services: No Alcohol intake: current Alcohol intake frequency: holidays/special occasions only Alcohol type: wine Patient Tobacco Use Status: Never used Tobacco e-Cigarette/Vaping Use: Never Used Advance Directives Date on File: 05/02/21 service: No Current occupational status: retired Cognitive needs: No Hearing needs: No Vision needs: Yes Meds Allergies Allergy/AdvReac Type Severity Reaction Status Date / Time No Known Allergies Allergy Verified 05/02/23 11:27 Active Medications: Current Medications Acetaminophen (Acetaminophen 325 Mg Tablet) 650 mg PO Q6H PRN PRN Reason: Pain, Mild (Pain Scale 1-3) Last Admin: 05/20/23 02:39 Dose: 650 mg Al Hydroxide/Mg Hydroxide (Magnesium Hydrox/Alum Hydrox 30 Ml Oral.Susp) 30 ml PO Q4H PRN PRN Reason: Heartburn/Nausea Last Admin: 05/20/23 08:41 Dose: 30 ml Docusate Sodium (Docusate Sodium 100 Mg Capsule) 100 mg PO BID [facility] Last Admin: 05/20/23 08:41 Dose: 100 mg Melatonin (Melatonin 3 Mg Tablet) 6 mg PO BEDTIME PRN PRN Reason: Insomnia Last Admin: 05/19/23 03:23 Dose: 6 mg Morphine Sulfate (Morphine Sulfate 2 Mg/Ml Cartridge) 2 mg IVPUSH Q4H PRN; Protocol PRN Reason: Pain, Severe (Pain Scale 7-10) Last Admin: 05/20/23 08:47 Dose: 2 mg Multivitamins/Vitamin C (Multivitamin Tablet) 1 tab PO DAILY [facility] Last Admin: 05/20/23 08:41 Dose: 1 tab Ondansetron HCl (Ondansetron Hcl 4 Mg/2 Ml Vial) 4 mg IVPUSH Q8H PRN PRN Reason: Nausea and Vomiting Last Admin: 05/20/23 02:58 Dose: 4 mg Oxycodone HCl (Oxycodone Hcl Immed Release 5 Mg Tablet) 5 mg PO Q6H PRN PRN Reason: Pain, Moderate(Pain Scale 4-6) Last Admin: 05/20/23 02:38 Dose: 5 mg Polyethylene Glycol (Polyethylene Glycol 3350 17 Gm Powd.Pack) 17 gm PO DAILY [facility] Last Admin: 05/20/23 08:41 Dose: 17 gm Senna (Sennosides 8.6 Mg Tablet) 17.2 mg PO BEDTIME [facility] Last Admin: 05/19/23 21:05 Dose: 17.2 mg Sodium Chloride (0.9 % Sodium Chloride Flush 3 Ml Syringe) [facility] Last Admin: 05/20/23 08:37 Dose: 3 ml Tamsulosin HCl (Tamsulosin Hcl 0.4 Mg Capsule) 0.4 mg PO BEDTIME [facility] Last Admin: 05/19/23 21:05 Dose: 0.4 mg Home Medications Medication Instructions Recorded Confirmed Last Taken Type acetaminophen 650 mg 650 mg PO DAILY Pain 10/22/20 05/17/23 Unknown History tablet,extended release (Tylenol Arthritis Pain) multivitamin 1 tab PO DAILY 05/12/21 05/17/23 Unknown History amlodipine 2.5 mg tablet 2.5 mg PO BEDTIME 05/17/23 05/17/23 Unknown History calcium carbonate 600 mg-vitamin 1 tab PO DAILY 05/17/23 05/17/23 Unknown History D3 5 mcg (200 unit) tablet cholecalciferol (vitamin D3) 25 25 mcg PO DAILY 05/17/23 05/17/23 Unknown History mcg (1,000 unit) tablet lisinopril 40 mg tablet 40 mg PO BEDTIME 05/17/23 05/17/23 Unknown History Physical Exam 2 Vital Signs: Vital Signs: Last Vital Signs Temp 97.1 F 05/20/23 07:17 Pulse 64 05/20/23 07:17 Resp 18 05/20/23 07:17 BP 109/93 H 05/20/23 07:17 Pulse Ox 93 05/20/23 07:17 O2 Del Method Room Air 05/20/23 07:17 O2 Flow Rate 1 05/18/23 07:16 BMI result Body Mass Index 32.4 The patient is non-toxic & in surprisingly good spirits NC/AT, PERRLA, EOMI Mood, affect & judgment all appear appropriate Sclera anicteric conjunctiva pink and moist Oropharynx is clear with no aphthous ulcers, mucous membranes moist Neck is supple with no tenderness, masses, adenopathy or bruits Heart is regular, normal S1-S2 no rubs or murmurs Lungs are clear and equal anteriorly with no audible wheezing, rubs or dullness to percussion Abdomen is overweight with no demonstrable hernias. He has diffuse tympany but no peritoneal sign to percussion. No HSM, rebound, rigidity, guarding, masses or bruits are present. Rectal exam is deferred Skin has good turgor and is free of rashes Extremities free of cyanosis clubbing edema Results Labs 05/20/23 08:47 05/20/23 08:46 Labs: Abnormal lab results 05/20/23 05/20/23 05/20/23 Range/Units 05:35 08:46 08:47 RBC 4.41 L (4.60-5.80) X10*6/uL Hgb 12.9 L (14.0-18.0) g/dl Hct 39.0 L (42.0-52.0) % Immature Gran % (Auto) 0.7 H (0.0-0.4) % Neut % (Auto) 74.3 H (45-73) % Lymph % (Auto) 8.3 L (20-40) % [place] % (Auto) 16.2 H (2-11) % Lymph # (Auto) 0.5 L (1.2-4.9) X10*3/uL Abs Immat Gran (auto) 0.04 H (0.00-0.03) X10*3/uL PT 72.3 H D (11.1-13.3) SEC INR 5.9 H* (0.9-1.1) Carbon Dioxide 21 L (22-29) mmol/L BUN 59 H (9-16) mg/dL Random Glucose 136 H (60-115) mg/dL Short CBC 05/20/23 Range/Units 08:47 WBC 5.7 (4.8-10.8) X10*3/uL Hgb 12.9 L (14.0-18.0) g/dl Hct 39.0 L (42.0-52.0) % Plt Count 240 D (160-400) X10*3/uL BMP 05/20/23 05/20/23 08:46 08:47 Sodium 141 Cancelled Potassium 4.6 Cancelled Chloride 108 Cancelled Carbon Dioxide 21 L Cancelled BUN 59 H Cancelled Creatinine 1.26 Cancelled Calcium 9.8 D Cancelled Urine 05/17/23 Range/Units 02:56 Urine Color Yellow Urine Appearance Clear Urine pH 5.0 (5.0-9.0) Ur Specific [place] 1.020 (1.005-1.025) Urine Protein 30 (1+) H (Neg-Trace) mg/dL Urine Glucose (UA) Negative (Negative) mg/dL All other labs normal. Imaging Chest x-ray: image reviewed Abdomen CT scan report/results: report reviewed and image reviewed CT scan - chest: report reviewed and image reviewed CT scan - pelvis: report reviewed and image reviewed Additional studies: CTs to the day after his injury 05/13/23 were reviewed. Chest x-ray post nasogastric insertion today is reviewed. The NG is in proper position. It was secured to his gown with tape. Official read currently pending Assessment and Plan (1) Right rib fracture: Status: Acute (2) Abdominal wall contusion: Status: Acute (3) Acute renal failure: Status: Acute (4) Frequent falls: Status: Acute (5) Chronic right heart failure: Status: Acute (6) Anticoagulated on Coumadin: Status: Acute (7) Nonrheumatic tricuspid (valve) insufficiency: Status: Acute (8) Current use of anticoagulant therapy: Status: Acute (9) SHALONDA (obstructive sleep apnea): Status: Acute (10) Normally functioning cardiac pacemaker present: Status: Acute (11) HTN (hypertension): Status: Acute (12) Hyperlipidemia: Status: Acute Plan Retrospectively, in reviewing the patient's presenting CT of the abdomen and pelvis from 05/13/2023, I believe the patient had a right perinephric/abdominal contusion. In the setting of supratherapeutic anticoagulation, the patient likely continued to bleed contributing to relative hypovolemia that led to his acute kidney injury. Patient's renal numbers are currently improving, given his creatinine of 1.26 and BUN of 59 which is also down, however his INR is still supratherapeutic at 5.9, so gently adjusting his INR is in order; the patient has likely developed some mild degree of consumptive coagulopathy since his INR is increasing rather than decreasing and not eating vegetable/vitamin K is likely also contributing. His decreased p.o. intake including liquids is also likely contributing to a prerenal state due to his abdominal distension. His abdominal distention is likely more of an ileus than stercoral colitis given his lack of abdominal tenderness, lack of leukocytosis, however the patient is at risk for this since it has been a week since his last bowel movement. Abdominal distension puts him at risk for pulmonary complications so encourage IS/pulmonary toilet, out of bed and deep breathing. Per nursing, 1 full container has been aspirated out of the NG tube representing 1500 cc of old bilious material. Please monitor the nasogastric tube and it is okay to reposition p.r.n.. While the patient can have ice chips for comfort, he should not drink liquids due to risk of aspiration pneumonia. I reassured the patient and his that there is no evidence of hemothorax or hemoperitoneum as an etiology and that I do not believe he will require operative intervention, but rather support, possibly nutritionally while his body recovers. We discussed the possible plan in 2-3 days to obtain a Gastrografin small-bowel follow-through which would likely be both diagnostic and therapeutic the patient does not have return of bowel function. Would hold on any MiraLax or stimulant laxatives at this point to allow his ileus time to decompress and and the muscularis to recover. In communication with Raeann Cristobal, I recommended a nasogastric tube in gentle reversal of the Coumadin, continue to monitor the labs and physical exam. After 2-3 days of decompression, a Gastrografin study may be both diagnostic and therapeutic. The stool burden in the right colon, while significant, has a fair amount of air in it and historically, stercoral colitis tends to occur with firm/hard pellet it stool that mechanically erodes the mucosa causing the ulcer, pain in often leukocytosis which is lacking. Given this clinical setting, I do not believe that that is what is occurring. I have ordered a pre-albumin to assess the patient's nutritional status. By history, he does not sound like he has great nutritional reserves. He was taking a multivitamin, he focuses mostly on salads and carbohydrates rather than protein, so discussion regarding PICC and TPN may be in order when the patient has a better control PT/INR and when we see whether or not he is going to open up following NG decompression. Will follow. Please call me with questions or clinical changes Procedures Date of Service Date of Service: 05/20/23
[2023-05-20] MEDS: Phytonadione (Vit K1) Oral 10 MG/ML AMPUL 2.5 MG PO (15:11)
[2023-05-20 16:07] VITALS: BP 123/69; PULSE 68; RESP 20; TEMP 36.6; O2SAT 94
[2023-05-20] MEDS: 0.9 % Sodium Chloride 1,000 ML 75 ML IVCONT (19:07)
[2023-05-20 20:00] VITALS: BP 123/68; PULSE 70; RESP 18; TEMP 36.4; O2SAT 91
[2023-05-20] MEDS: Trolamine Salicylate 10 % Cream 85 GM TUBE 1 APPL TOPICAL (20:37)
[2023-05-21 03:46] VITALS: BP 123/77; PULSE 71; RESP 16; TEMP 36.3; O2SAT 93
[2023-05-21] MEDS: Morphine Sulfate 2 MG/ML CARTRIDGE IVPUSH (04:04)
[2023-05-21 06:26] LABS: Anion Gap 14 (12-20); Blood Urea Nitrogen 61 mg/dL (9-16); Calcium 9.5 mg/dL (8.4-10.2); Carbon Dioxide 26 mmol/L (22-29); Chloride 108 mmol/L (96-108); Creatinine Clr Calc Pharmacy 42.4; Estimated Glomerular Filt Rate 54; Glucose Random 106 mg/dL (60-115); Potassium 4.1 mmol/L (3.3-5.1); Sodium 144 mmol/L (135-145)
[2023-05-21 06:29] LABS: Prothrombin Time 71.2 SEC (11.1-13.3)
--- NOTE | 2023-05-21 06:48 | P.PNGS_ITS ---
Subjective Subjective Date of Service: 05/21/23 Patient reports: no new complaints, feels better, still having pain and no flatus Interval history: NG in place. The patient notes what he believes to be interval improvement in that he is now hungry but he is not passing any gas. He has the usual complaints from the nasogastric tube, however he denies any worsening chest pain, difficulty breathing, abdominal pain or new localizing neurological symptoms. Physical Exam 2 Vital Signs: Vital Signs: Last Vital Signs Temp 97.4 F 05/21/23 03:46 Pulse 71 05/21/23 03:46 Resp 16 05/21/23 03:46 BP 123/77 05/21/23 03:46 Pulse Ox 93 05/21/23 03:46 O2 Del Method Room Air 05/21/23 03:46 O2 Flow Rate 1 05/18/23 07:16 BMI result Body Mass Index 32.4 On exam he is speaking in full sentences He appears comfortable He is having no respiratory difficulty His abdomen is a difficult assessment. He notes that he feels less bloated, however it appears to be about the same as yesterday when I evaluated him and there is still no tenderness, rebound. No peritoneal sign to percussion is noted and he is tympanitic, perhaps less so than yesterday The nasogastric output was reviewed in in excess of 1500 cc of old stagnant bile. By comparison, this morning's bile appears fresh/yellow green which is encouraging. Objective Data Active Medications Acetaminophen (Acetaminophen 325 Mg Tablet) 650 mg PO Q6H PRN PRN Reason: Pain, Mild (Pain Scale 1-3) Last Admin: 05/20/23 02:39 Dose: 650 mg Documented By: GUZMAN Al Hydroxide/Mg Hydroxide (Magnesium Hydrox/Alum Hydrox 30 Ml Oral.Susp) 30 ml PO Q4H PRN PRN Reason: Heartburn/Nausea Last Admin: 05/20/23 08:41 Dose: 30 ml Documented By: KARLIEARTAngelica Docusate Sodium (Docusate Sodium 100 Mg Capsule) 100 mg PO BID [facility] Last Admin: 05/20/23 20:12 Dose: Not Given Documented By: NICOLA Non-Admin Reason: NPO Sodium Chloride (Ns) 1,000 mls @ 75 mls/hr IVCONT .[id number] [facility] Last Admin: 05/20/23 19:07 Dose: 75 mls/hr Documented By: SUSANNAH Melatonin (Melatonin 3 Mg Tablet) 6 mg PO BEDTIME PRN PRN Reason: Insomnia Last Admin: 05/19/23 03:23 Dose: 6 mg Documented By: GUZMAN Morphine Sulfate (Morphine Sulfate 2 Mg/Ml Cartridge) 2 mg IVPUSH Q4H PRN; Protocol PRN Reason: Pain, Severe (Pain Scale 7-10) Last Admin: 05/21/23 04:04 Dose: 2 mg Documented By: DARIA Multivitamins/Vitamin C (Multivitamin Tablet) 1 tab PO DAILY [facility] Last Admin: 05/20/23 08:41 Dose: 1 tab Documented By: SUSANNAH Ondansetron HCl (Ondansetron Hcl 4 Mg/2 Ml Vial) 4 mg IVPUSH Q8H PRN PRN Reason: Nausea and Vomiting Last Admin: 05/20/23 02:58 Dose: 4 mg Documented By: GUZMAN Oxycodone HCl (Oxycodone Hcl Immed Release 5 Mg Tablet) 5 mg PO Q6H PRN PRN Reason: Pain, Moderate(Pain Scale 4-6) Last Admin: 05/20/23 02:38 Dose: 5 mg Documented By: GUZMAN Polyethylene Glycol (Polyethylene Glycol 3350 17 Gm Powd.Pack) 17 gm PO DAILY [facility] Last Admin: 05/20/23 08:41 Dose: 17 gm Documented By: SUSANNAH Senna (Sennosides 8.6 Mg Tablet) 17.2 mg PO BEDTIME [facility] Last Admin: 05/20/23 20:12 Dose: Not Given Documented By: NICOLA Non-Admin Reason: NPO Sodium Chloride (0.9 % Sodium Chloride Flush 3 Ml Syringe) 3 ml IVFLUSH QSHIFT [facility] Last Admin: 05/20/23 20:38 Dose: 3 ml Documented By: NICOLA Tamsulosin HCl (Tamsulosin Hcl 0.4 Mg Capsule) 0.4 mg PO BEDTIME [facility] Last Admin: 05/20/23 20:13 Dose: Not Given Documented By: NICOLA Non-Admin Reason: NPO Trolamine Salicylate (Trolamine Salicylate 10 % Cream 85 Gm Tube) 1 appl TOPICAL TID PRN; Protocol PRN Reason: Pain, Mild (Pain Scale 1-3) Last Admin: 05/20/23 20:37 Dose: 1 appl Documented By: NICOLA Labs 05/20/23 08:47 05/21/23 05:49 Labs: Laboratory Results - last 24 hr 05/20/23 05/20/23 05/20/23 05:35 08:46 08:47 MCV 88.4 MCH 29.3 MCHC 33.1 RDW 12.6 Plt Count 240 D MPV 10.3 Immature Gran % (Auto) 0.7 H Neut % (Auto) 74.3 H Lymph % (Auto) 8.3 L [place] % (Auto) 16.2 H Eos % (Auto) 0.0 Baso % (Auto) 0.5 Lymph # (Auto) 0.5 L [place] # (Auto) 0.9 Eos # (Auto) 0.0 Baso # (Auto) 0.0 Abs Immat Gran (auto) 0.04 H Absolute Neuts (auto) 4.2 Absolute Nucleated RBC 0.000 Nucleated RBC % (auto) 0.0 PT 72.3 H D INR 5.9 H* Anion Gap 17 Cancelled Estim Creat Clear Calc 43.0 Cancelled Estimated GFR 55 Cancelled Random Glucose 136 H Cancelled Lactic Acid 1.4 Calcium 9.8 D Cancelled Prealbumin 05/20/23 05/21/23 14:55 05:49 MCV MCH MCHC RDW Plt Count MPV Immature Gran % (Auto) Neut % (Auto) Lymph % (Auto) [place] % (Auto) Eos % (Auto) Baso % (Auto) Lymph # (Auto) [place] # (Auto) Eos # (Auto) Baso # (Auto) Abs Immat Gran (auto) Absolute Neuts (auto) Absolute Nucleated RBC Nucleated RBC % (auto) PT INR Anion Gap 14 Estim Creat Clear Calc 42.4 Estimated GFR 54 Random Glucose 106 Lactic Acid Calcium 9.5 Prealbumin 14.0 L Procedures Date of Service Date of Service: 05/21/23 Progress Note: A&P Assessment and plan (1) Protein calorie malnutrition: Status: Acute (2) Anticoagulated on Coumadin: Status: Acute (3) Frequent falls: Status: Acute (4) Acute renal failure: Status: Acute (5) Ileus: Status: Acute Plan Given the patient's self-reported not eating for a week, his documented pre- albumin of 14 and ileus, a discussion for possible TPN in the next day or so should be considered. It is encouraging that the nature of NG output is changed to fresh appearing bile and that he is hungry, however, he is still not passing gas and may need TPN support. Encourage out of bed to chair and walking with supervision/support. Await better GI function, minimize narcotics. Recommend gentle correction of his coagulopathy and will reassess PT/INR when available later today. Will reassess later today. Okay for ice chips but given the questionable GI function, I would recommend avoiding p.o. meds and clamping the NG tube at this time. Time Spent With Patient Time: Total time managing care of this patient today ____ minutes. Quality Stroke Does the patient have a stroke diagnosis?: No VTE Prior VTE?: No VTE Risk Level:: Medical - moderate - high VTE Device Contraindication: N/A - Device Ordered VTE Drug Contraindication: Treatment Not Indicated
[2023-05-21 07:45] VITALS: BP 117/66; PULSE 86; RESP 18; TEMP 36.7; O2SAT 90
[2023-05-21 08:16] LABS: INTERNATIONAL NORM RATIO 5.8 (0.9-1.1)
--- NOTE | 2023-05-21 08:50 | P.PNIM_ITS ---
Subjective Subjective Date of Service: 05/21/23 Interval History: follow up for fall, JB, SBO complaining of constipation abdominal distension has improved no sob, no cough Review of Systems Review of Systems: Yes all other systems are reviewed and are negative Constitutional Constitutional: Denies chills and Denies fever(s) Cardiovascular Cardiovascular: Denies palpitations and Denies dyspnea Respiratory Respiratory: Denies cough and Denies dyspnea Endocrine Endocrine: Denies palpitations Physical Exam 2 Vital Signs: Vital Signs: Last Vital Signs Temp 98.1 F 05/21/23 07:45 Pulse 86 05/21/23 07:45 Resp 18 05/21/23 07:45 BP 117/66 05/21/23 07:45 Pulse Ox 90 L 05/21/23 07:45 O2 Del Method Room Air 05/21/23 07:45 O2 Flow Rate 1 05/18/23 07:16 BMI result Body Mass Index 32.4 Appearing in no acute distress lung sounds are clear to auscultation heart regular rate rhythm, clear S1, S2 positive bowel sounds, abdomen is soft, nontender neuro patient is alert x3, no focal deficits NGT in place to LIS Objective Data Active Medications Acetaminophen (Acetaminophen 325 Mg Tablet) 650 mg PO Q6H PRN PRN Reason: Pain, Mild (Pain Scale 1-3) Last Admin: 05/20/23 02:39 Dose: 650 mg Documented By: GUZMAN Al Hydroxide/Mg Hydroxide (Magnesium Hydrox/Alum Hydrox 30 Ml Oral.Susp) 30 ml PO Q4H PRN PRN Reason: Heartburn/Nausea Last Admin: 05/20/23 08:41 Dose: 30 ml Documented By: SUSANNAH Docusate Sodium (Docusate Sodium 100 Mg Capsule) 100 mg PO BID [facility] Last Admin: 05/20/23 20:12 Dose: Not Given Documented By: NICOLA Non-Admin Reason: NPO Sodium Chloride (Ns) 1,000 mls @ 75 mls/hr IVCONT .[id number] [facility] Last Admin: 05/20/23 19:07 Dose: 75 mls/hr Documented By: SUSANNAH Melatonin (Melatonin 3 Mg Tablet) 6 mg PO BEDTIME PRN PRN Reason: Insomnia Last Admin: 05/19/23 03:23 Dose: 6 mg Documented By: HO.ODRISM Morphine Sulfate (Morphine Sulfate 2 Mg/Ml Cartridge) 2 mg IVPUSH Q4H PRN; Protocol PRN Reason: Pain, Severe (Pain Scale 7-10) Last Admin: 05/21/23 04:04 Dose: 2 mg Documented By: DARIA Multivitamins/Vitamin C (Multivitamin Tablet) 1 tab PO DAILY [facility] Last Admin: 05/20/23 08:41 Dose: 1 tab Documented By: SUSANNAH Ondansetron HCl (Ondansetron Hcl 4 Mg/2 Ml Vial) 4 mg IVPUSH Q8H PRN PRN Reason: Nausea and Vomiting Last Admin: 05/20/23 02:58 Dose: 4 mg Documented By: GUZMAN Oxycodone HCl (Oxycodone Hcl Immed Release 5 Mg Tablet) 5 mg PO Q6H PRN PRN Reason: Pain, Moderate(Pain Scale 4-6) Last Admin: 05/20/23 02:38 Dose: 5 mg Documented By: GUZMAN Polyethylene Glycol (Polyethylene Glycol 3350 17 Gm Powd.Pack) 17 gm PO DAILY [facility] Last Admin: 05/20/23 08:41 Dose: 17 gm Documented By: SUSANNAH Senna (Sennosides 8.6 Mg Tablet) 17.2 mg PO BEDTIME [facility] Last Admin: 05/20/23 20:12 Dose: Not Given Documented By: NICOLA Non-Admin Reason: NPO Sodium Chloride (0.9 % Sodium Chloride Flush 3 Ml Syringe) [facility] Last Admin: 05/20/23 20:38 Dose: 3 ml Documented By: NICOLA Tamsulosin HCl (Tamsulosin Hcl 0.4 Mg Capsule) 0.4 mg PO BEDTIME [facility] Last Admin: 05/20/23 20:13 Dose: Not Given Documented By: NICOLA Non-Admin Reason: NPO Trolamine Salicylate (Trolamine Salicylate 10 % Cream 85 Gm Tube) 1 appl TOPICAL TID PRN; Protocol PRN Reason: Pain, Mild (Pain Scale 1-3) Last Admin: 05/20/23 20:37 Dose: 1 appl Documented By: NICOLA Labs 05/20/23 08:47 05/21/23 05:49 Labs: Laboratory Results - last 24 hr 05/20/23 05/20/23 05/20/23 08:46 08:47 14:55 MCV 88.4 MCH 29.3 MCHC 33.1 RDW 12.6 Plt Count 240 D MPV 10.3 Immature Gran % (Auto) 0.7 H Neut % (Auto) 74.3 H Lymph % (Auto) 8.3 L [place] % (Auto) 16.2 H Eos % (Auto) 0.0 Baso % (Auto) 0.5 Lymph # (Auto) 0.5 L [place] # (Auto) 0.9 Eos # (Auto) 0.0 Baso # (Auto) 0.0 Abs Immat Gran (auto) 0.04 H Absolute Neuts (auto) 4.2 Absolute Nucleated RBC 0.000 Nucleated RBC % (auto) 0.0 PT INR Anion Gap 17 Cancelled Estim Creat Clear Calc 43.0 Cancelled Estimated GFR 55 Cancelled Random Glucose 136 H Cancelled Lactic Acid 1.4 Calcium 9.8 D Cancelled Prealbumin 14.0 L 05/21/23 05:49 MCV MCH MCHC RDW Plt Count MPV Immature Gran % (Auto) Neut % (Auto) Lymph % (Auto) [place] % (Auto) Eos % (Auto) Baso % (Auto) Lymph # (Auto) [place] # (Auto) Eos # (Auto) Baso # (Auto) Abs Immat Gran (auto) Absolute Neuts (auto) Absolute Nucleated RBC Nucleated RBC % (auto) PT 71.2 H INR 5.8 H* Anion Gap 14 Estim Creat Clear Calc 42.4 Estimated GFR 54 Random Glucose 106 Lactic Acid Calcium 9.5 Prealbumin Assessment and Plan (1) Right rib fracture: Status: Acute (2) Abdominal wall contusion: Status: Acute (3) Acute renal failure: Status: Acute Plan 82 year old pleasant white male with history of PAF, HTN, HLD, CHF, SHALONDA, ED, Prostate cancer, Bladder cancer and recent mechanical fall with resultant 9th & 10th rib fractures and lung contusion here with SBO NGT Placed to LIS op so far, 3250ml General surgery following continue NPO for now encourage oob ambulating Supratherapeutic INR/paraoxysmal atrial fibrillation INR of 5.8 (target 2-3) continue to hold Coumadin H/H stable follow INR daily s/p oral vitamin K 2.5 mg will give one IV dose of 2.5 vit k now JB on CKD3. Resolved possible component of pre-renal azotemia given soft BP hold Lisinopril and Lasix Right lower quadrant abdominal pain likely due to fall and hematoma H/H has remained stable hold Coumadin and monitor INR PRN analgesics stercoral colitis continue bowel regimen fleets enema Frequent falls pt says he strained his shoulder carrying something heavy which caused him to slip the first time, then he slipped in his socks on the hardwood floor seen by PT - rec home with PT services when medically ready Multiple rib fractures right 9, 10 and 11 ribs (non-displaced) breathing well without splinting continue pain control, IS HTN bp soft hold lisinopril, lasix, norvasc follow bp closely Acute hyponatremia, mild resolved DVT: Supratherapeutic INR, coumadin on hold CODE STATUS: Full code attending Dr. Yo Ongoing inpatient stay for management of JB, supratherapetic INR and PT eval for unsteady gait, closely monitoring of INR/blood pressure Quality Stroke Does the patient have a stroke diagnosis?: No VTE Prior VTE?: No VTE Risk Level:: Medical - moderate - high VTE Device Contraindication: N/A - Device Ordered VTE Drug Contraindication: Treatment Not Indicated
[2023-05-21] MEDS: 0.9 % Sodium Chloride Flush 3 ML SYRINGE IVFLUSH ×3 (09:33→23:51)
[2023-05-21] MEDS: 0.9 % Sodium Chloride 1,000 ML 75 ML IVCONT ×2 (09:37→20:27)
[2023-05-21] MEDS: Phytonadione (Vit K1) 2.5 MG in 0.9 % Sodium Chloride 50 ML 50.25 MG IV (09:56)
--- NOTE | 2023-05-21 14:55 | MHC.CM.PN ---
Per MD rounds patient is not ready to discharge. Patients abdomen is distended. He has a Naso-gastric tube in place. Imaging indicates Bowel obstruction/illeus. PT evaluation recommendation initially, Home with services. Patients spouse was going to provide transportation home. If the patient requires STR CM will set up. Transport would be BLS if final disposition is STR.
[2023-05-21 15:31] VITALS: BP 131/72; PULSE 68; RESP 18; TEMP 36.4; O2SAT 90
[2023-05-21 20:00] VITALS: BP 141/74; PULSE 72; RESP 18; TEMP 36.4; O2SAT 93
[2023-05-22] MEDS: Morphine Sulfate 2 MG/ML CARTRIDGE IVPUSH ×2 (02:15→09:03)
[2023-05-22 04:00] VITALS: BP 139/72; PULSE 56; RESP 18; TEMP 37.2; O2SAT 93
--- NOTE | 2023-05-22 07:25 | PM.PNGS ---
Subjective Subjective Date of Service: 05/22/23 Patient reports: no new complaints, feels better, still having pain and flatus Interval history: The patient reports that he feels like he needs to have a bowel movement. He feels gurgling in his abdomen and started having flatus over the past few hours and is awaiting the nurse to take him to the toilet. He otherwise denies any new complaints such as localizing neurological symptoms, worsening chest pain, shortness of breath or visual changes Physical Exam Vital Signs: Vital Signs: Last Vital Signs Temp 98.9 F 05/22/23 04:00 Pulse 56 05/22/23 04:00 Resp 18 05/22/23 04:00 BP 139/72 05/22/23 04:00 Pulse Ox 93 05/22/23 04:00 O2 Del Method Room Air 05/22/23 04:00 O2 Flow Rate 1 05/18/23 07:16 BMI result Body Mass Index 32.4 On exam, he appears comfortable and nontoxic He is having no respiratory difficulty Abdomen is obese and protrude burnt with continued tympany but no peritoneal sign. Patient asked me to press lightly during the exam so he did not soil himself Objective Data Active Medications Acetaminophen (Acetaminophen 325 Mg Tablet) 650 mg PO Q6H PRN PRN Reason: Pain, Mild (Pain Scale 1-3) Last Admin: 05/20/23 02:39 Dose: 650 mg Documented By: GUZMAN Al Hydroxide/Mg Hydroxide (Magnesium Hydrox/Alum Hydrox 30 Ml Oral.Susp) 30 ml PO Q4H PRN PRN Reason: Heartburn/Nausea Last Admin: 05/20/23 08:41 Dose: 30 ml Documented By: SUSANNAH Docusate Sodium (Docusate Sodium 100 Mg Capsule) 100 mg PO BID [facility] Last Admin: 05/21/23 20:22 Dose: Not Given Documented By: ANGELY Non-Admin Reason: NPO Sodium Chloride (Ns) 1,000 mls @ 75 mls/hr IVCONT .[id number] [facility] Last Admin: 05/21/23 20:27 Dose: 75 mls/hr Documented By: ANGELY Melatonin (Melatonin 3 Mg Tablet) 6 mg PO BEDTIME PRN PRN Reason: Insomnia Last Admin: 05/19/23 03:23 Dose: 6 mg Documented By: GUZMAN Morphine Sulfate (Morphine Sulfate 2 Mg/Ml Cartridge) 2 mg IVPUSH Q4H PRN; Protocol PRN Reason: Pain, Severe (Pain Scale 7-10) Last Admin: 05/22/23 02:15 Dose: 2 mg Documented By: DARIA Multivitamins/Vitamin C (Multivitamin Tablet) 1 tab PO DAILY [facility] Last Admin: 05/21/23 09:39 Dose: Not Given Documented By: SONAM Non-Admin Reason: NPO Ondansetron HCl (Ondansetron Hcl 4 Mg/2 Ml Vial) 4 mg IVPUSH Q8H PRN PRN Reason: Nausea and Vomiting Last Admin: 05/20/23 02:58 Dose: 4 mg Documented By: GUZMAN Polyethylene Glycol (Polyethylene Glycol 3350 17 Gm Powd.Pack) 17 gm PO DAILY [facility] Last Admin: 05/21/23 09:39 Dose: Not Given Documented By: SONAM Non-Admin Reason: NPO Senna (Sennosides 8.6 Mg Tablet) 17.2 mg PO BEDTIME [facility] Last Admin: 05/21/23 20:23 Dose: Not Given Documented By: ANGELY Non-Admin Reason: NPO Sodium Chloride (0.9 % Sodium Chloride Flush 3 Ml Syringe) [facility] Last Admin: 05/21/23 23:51 Dose: 3 ml Documented By: DARIA Tamsulosin HCl (Tamsulosin Hcl 0.4 Mg Capsule) 0.4 mg PO BEDTIME [facility] Last Admin: 05/21/23 20:23 Dose: Not Given Documented By: ANGELY Non-Admin Reason: NPO Trolamine Salicylate (Trolamine Salicylate 10 % Cream 85 Gm Tube) 1 appl TOPICAL TID PRN; Protocol PRN Reason: Pain, Mild (Pain Scale 1-3) Last Admin: 05/20/23 20:37 Dose: 1 appl Documented By: NICOLA Labs 05/20/23 08:47 05/21/23 05:49 Labs: Laboratory Results - last 24 hr 05/21/23 05:49 PT 71.2 H INR 5.8 H* Labs from 05/22/2023 are currently pending Procedures Date of Service Date of Service: 05/22/23 Progress Note: A&P Assessment and plan (1) Ileus: Status: Acute (2) Protein calorie malnutrition: Status: Acute (3) Anticoagulated on Coumadin: Status: Acute (4) Frequent falls: Status: Acute (5) Right rib fracture: Status: Acute (6) Abdominal wall contusion: Status: Acute (7) Acute renal failure: Status: Acute (8) Chronic right heart failure: Status: Acute Plan Await morning labs for 05/22/2023 Await to see whether not the patient is having bowel function as evidenced by flatus and his complaints that he feels like he needs to defecate. Continue present management in the meantime. Time Spent With Patient Time: Total time managing care of this patient today ____ minutes. Quality Stroke Does the patient have a stroke diagnosis?: No VTE Prior VTE?: No VTE Risk Level:: Medical - moderate - high VTE Device Contraindication: N/A - Device Ordered VTE Drug Contraindication: Treatment Not Indicated
[2023-05-22 07:43] LABS: INTERNATIONAL NORM RATIO 1.4 (0.9-1.1); Prothrombin Time 17.2 SEC (11.1-13.3)
[2023-05-22 07:51] LABS: Anion Gap 15 (12-20); Blood Urea Nitrogen 59 mg/dL (9-16); Calcium 9.2 mg/dL (8.4-10.2); Carbon Dioxide 28 mmol/L (22-29); Chloride 111 mmol/L (96-108); Creatinine Clr Calc Pharmacy 44.8; Estimated Glomerular Filt Rate 57; Glucose Random 106 mg/dL (60-115); Potassium 3.8 mmol/L (3.3-5.1); Sodium 150 mmol/L (135-145)
[2023-05-22 07:52] VITALS: BP 148/73; PULSE 69; RESP 17; TEMP 36.5; O2SAT 92
[2023-05-22] MEDS: 0.9 % Sodium Chloride Flush 3 ML SYRINGE IVFLUSH (09:08)
[2023-05-22] MEDS: Dextrose 5 % 1,000 ML 100 ML IVCONT ×2 (09:30→20:05)
--- NOTE | 2023-05-22 10:25 | MHC.CM.PN ---
Per MD rounds no discharge today. Patient continue with high out put from NG tube. Dietitian consult ordered. TPN/PPN may be ordered today. DP home with [facility]. Patients will provide transportation home.
--- NOTE | 2023-05-22 10:52 | HO.PM.IMPN ---
Subjective Subjective Date of Service: 05/22/23 Interval History: follow up for fall, JB, SBO has small soft BM today abdominal distension has improved no sob, no cough Review of Systems Review of Systems: Yes all other systems are reviewed and are negative Constitutional Constitutional: Denies chills and Denies fever(s) Cardiovascular Cardiovascular: Denies palpitations and Denies dyspnea Respiratory Respiratory: Denies cough and Denies dyspnea Endocrine Endocrine: Denies palpitations Physical Exam Vital Signs: Vital Signs: Last Vital Signs Temp 97.7 F 05/22/23 07:52 Pulse 69 05/22/23 07:52 Resp 17 05/22/23 07:52 BP 148/73 H 05/22/23 07:52 Pulse Ox 92 05/22/23 07:52 O2 Del Method Room Air 05/22/23 07:52 O2 Flow Rate 1 05/18/23 07:16 BMI result Body Mass Index 32.4 Appearing in no acute distress lung sounds are clear to auscultation heart regular rate rhythm, clear S1, S2 positive bowel sounds, abdomen is soft, NGT neuro patient is alert x3, no focal deficits Objective Data Active Medications Acetaminophen (Acetaminophen 325 Mg Tablet) 650 mg PO Q6H PRN PRN Reason: Pain, Mild (Pain Scale 1-3) Last Admin: 05/20/23 02:39 Dose: 650 mg Documented By: GUZMAN Al Hydroxide/Mg Hydroxide (Magnesium Hydrox/Alum Hydrox 30 Ml Oral.Susp) 30 ml PO Q4H PRN PRN Reason: Heartburn/Nausea Last Admin: 05/20/23 08:41 Dose: 30 ml Documented By: SUSANNAH Docusate Sodium (Docusate Sodium 100 Mg Capsule) 100 mg PO BID [facility] Last Admin: 05/22/23 09:08 Dose: Not Given Documented By: SONAM Non-Admin Reason: NPO Dextrose (D5w) 1,000 mls @ 100 mls/hr IVCONT .Q10H [facility] Melatonin (Melatonin 3 Mg Tablet) 6 mg PO BEDTIME PRN PRN Reason: Insomnia Last Admin: 05/19/23 03:23 Dose: 6 mg Documented By: GUZMAN Morphine Sulfate (Morphine Sulfate 2 Mg/Ml Cartridge) 2 mg IVPUSH Q4H PRN; Protocol PRN Reason: Pain, Severe (Pain Scale 7-10) Last Admin: 05/22/23 09:03 Dose: 2 mg Documented By: SONAM Multivitamins/Vitamin C (Multivitamin Tablet) 1 tab PO DAILY [facility] Last Admin: 05/22/23 09:08 Dose: Not Given Documented By: SONAM Non-Admin Reason: NPO Ondansetron HCl (Ondansetron Hcl 4 Mg/2 Ml Vial) 4 mg IVPUSH Q8H PRN PRN Reason: Nausea and Vomiting Last Admin: 05/20/23 02:58 Dose: 4 mg Documented By: GUZMAN Polyethylene Glycol (Polyethylene Glycol 3350 17 Gm Powd.Pack) 17 gm PO DAILY [facility] Last Admin: 05/22/23 09:08 Dose: Not Given Documented By: SONAM Non-Anthony Reason: NPO Senna (Sennosides 8.6 Mg Tablet) 17.2 mg PO BEDTIME [facility] Last Admin: 05/21/23 20:23 Dose: Not Given Documented By: ANGELY Non-Admin Reason: NPO Sodium Chloride (0.9 % Sodium Chloride Flush 3 Ml Syringe) 3 ml IVFLUSH QSHIFT [facility] Last Admin: 05/22/23 09:08 Dose: 3 ml Documented By: SONAM Tamsulosin HCl (Tamsulosin Hcl 0.4 Mg Capsule) 0.4 mg PO BEDTIME [facility] Last Admin: 05/21/23 20:23 Dose: Not Given Documented By: ANGELY Non-Admin Reason: NPO Trolamine Salicylate (Trolamine Salicylate 10 % Cream 85 Gm Tube) 1 appl TOPICAL TID PRN; Protocol PRN Reason: Pain, Mild (Pain Scale 1-3) Last Admin: 05/20/23 20:37 Dose: 1 appl Documented By: NICOLA Labs 05/20/23 08:47 05/22/23 07:11 Labs: Laboratory Results - last 24 hr 05/22/23 07:11 Hold Purple Top SEE NOTE PT 17.2 H D INR 1.4 H D Anion Gap 15 Estim Creat Clear Calc 44.8 Estimated GFR 57 Random Glucose 106 Calcium 9.2 Assessment and Plan (1) Right rib fracture: Status: Acute (2) Abdominal wall contusion: Status: Acute (3) Acute renal failure: Status: Acute Plan 82 year old pleasant white male with history of PAF, HTN, HLD, CHF, SHALONDA, ED, Prostate cancer, Bladder cancer and recent mechanical fall with resultant 9th & 10th rib fractures and lung contusion here with Hypernatremia likely from hypovolemia, NPO status start D5W, recheck sodium this afternoon SBO NGT to LIS op last 24 hrs 1100ml General surgery following continue NPO for now with ice chips encourage oob ambulating Nutrition consult pending Supratherapeutic INR/paraoxysmal atrial fibrillation INR now 1.4 (target 2-3) H/H stable s/p vitamin K x2 resume warfarin 5 mg daily JB on CKD3. Resolved possible component of pre-renal azotemia given soft BP continue to hold Lisinopril and Lasix Right lower quadrant abdominal pain due to fall and hematoma H/H has remained stable PRN analgesics stercoral colitis continue bowel regimen when SBO resolves s/p fleets enema Frequent falls pt says he strained his shoulder carrying something heavy which caused him to slip the first time, then he slipped in his socks on the hardwood floor seen by PT - rec home with PT services when medically ready Multiple rib fractures right 9, 10 and 11 ribs (non-displaced) breathing well without splinting continue pain control, IS HTN bp soft hold lisinopril, lasix, norvasc follow bp closely Acute hyponatremia, mild resolved DVT: coumadin CODE STATUS: Full code attending Dr. Yo Ongoing inpatient stay for management of JB, supratherapetic INR and PT eval for unsteady gait, closely monitoring of INR/blood pressure Quality Stroke Does the patient have a stroke diagnosis?: No VTE Prior VTE?: No VTE Risk Level:: Medical - moderate - high VTE Device Contraindication: N/A - Device Ordered VTE Drug Contraindication: Treatment Not Indicated
--- NOTE | 2023-05-22 15:42 | PC.NURSE ---
NG clamped at 0945. Reattached to suction at 1400. No output after 1 hour attached to suction. Abdomen softly distended. Patient had a liquid BM. Reports feeling pressure in rectum. Dr. Mcmahon notified.
[2023-05-22 15:58] VITALS: BP 151/75; PULSE 65; RESP 18; TEMP 36.3; O2SAT 92
[2023-05-22 17:48] LABS: Sodium 149 mmol/L (135-145)
--- NOTE | 2023-05-22 18:02 | PC.NURSE ---
NA level 149 ,AMBER Cristobal made aware
[2023-05-22 20:00] VITALS: BP 148/73; PULSE 64; RESP 17; TEMP 36.8; O2SAT 92
--- NOTE | 2023-05-22 20:22 | PC.NURSE ---
Clamped NG tube at 1999,emptied for 420 ml of brown drainage,educated patient that only ice chips are allowed.Abdomen distended,hypoactive bowel sounds,no nausea,denies need for pain meds.Patient reports pasing small amt of flatus.
[2023-05-23 04:00] VITALS: BP 137/60; PULSE 69; RESP 16; TEMP 37.3; O2SAT 92
[2023-05-23] MEDS: Dextrose 5 % 1,000 ML 100 ML IVCONT ×3 (05:21→23:27)
[2023-05-23 06:45] LABS: INTERNATIONAL NORM RATIO 1.4 (0.9-1.1); Prothrombin Time 16.7 SEC (11.1-13.3)
[2023-05-23 07:05] LABS: Anion Gap 12 (12-20); Blood Urea Nitrogen 45 mg/dL (9-16); Calcium 8.8 mg/dL (8.4-10.2); Carbon Dioxide 30 mmol/L (22-29); Chloride 107 mmol/L (96-108); Creatinine Clr Calc Pharmacy 48.9; Estimated Glomerular Filt Rate > 60; Glucose Random 130 mg/dL (60-115); Potassium 3.5 mmol/L (3.3-5.1); Sodium 145 mmol/L (135-145)
[2023-05-23 07:50] VITALS: BP 135/69; PULSE 69; RESP 17; TEMP 36.9; O2SAT 92
--- NOTE | 2023-05-23 07:58 | PM.PNGS ---
Subjective Subjective Date of Service: 05/23/23 Patient reports: no flatus and no bowel movement Interval history: The patient reports minimal flatus since yesterday. He has self exam and his rectum and states that he feels particles and gravel and feels like he needs to move his bowels. He denies any abd pain but is uncomfortable from the NG tube. He is unsure how much liquid or ice he is taking, noting he is taking whatever the nurses give. He denies chest pain or shortness of breath Physical Exam Vital Signs: Vital Signs: Last Vital Signs Temp 98.4 F 05/23/23 07:50 Pulse 69 05/23/23 07:50 Resp 17 05/23/23 07:50 BP 135/69 05/23/23 07:50 Pulse Ox 92 05/23/23 07:50 O2 Del Method Room Air 05/23/23 07:50 O2 Flow Rate 1 05/18/23 07:16 BMI result Body Mass Index 32.4 On exam he is nontoxic He is having no respiratory distress Abdomen is per true Shawn nontender with tympany. Is unchanged since yesterday. No rebound, rigidity, peritoneal sign is noted. Objective Data Active Medications Acetaminophen (Acetaminophen 325 Mg Tablet) 650 mg PO Q6H PRN PRN Reason: Pain, Mild (Pain Scale 1-3) Last Admin: 05/20/23 02:39 Dose: 650 mg Documented By: GUZMAN Al Hydroxide/Mg Hydroxide (Magnesium Hydrox/Alum Hydrox 30 Ml Oral.Susp) 30 ml PO Q4H PRN PRN Reason: Heartburn/Nausea Last Admin: 05/20/23 08:41 Dose: 30 ml Documented By: KARLIEARTAngelica Docusate Sodium (Docusate Sodium 100 Mg Capsule) 100 mg PO BID [facility] Last Admin: 05/22/23 20:04 Dose: Not Given Documented By: ANGELY Non-Admin Reason: NPO Dextrose (D5w) 1,000 mls @ 100 mls/hr IVCONT .Q10H [facility] Last Admin: 05/23/23 05:21 Dose: 100 mls/hr Documented By: DARIA Melatonin (Melatonin 3 Mg Tablet) 6 mg PO BEDTIME PRN PRN Reason: Insomnia Last Admin: 05/19/23 03:23 Dose: 6 mg Documented By: HO.ODRISM Morphine Sulfate (Morphine Sulfate 2 Mg/Ml Cartridge) 1 mg IVPUSH Q4H PRN; Protocol PRN Reason: Pain, Moderate(Pain Scale 4-6) Multivitamins/Vitamin C (Multivitamin Tablet) 1 tab PO DAILY [facility] Last Admin: 05/22/23 09:08 Dose: Not Given Documented By: SONAM Non-Admin Reason: NPO Ondansetron HCl (Ondansetron Hcl 4 Mg/2 Ml Vial) 4 mg IVPUSH Q8H PRN PRN Reason: Nausea and Vomiting Last Admin: 05/20/23 02:58 Dose: 4 mg Documented By: CAREYRISGarfield Polyethylene Glycol (Polyethylene Glycol 3350 17 Gm Powd.Pack) 17 gm PO DAILY [facility] Last Admin: 05/22/23 09:08 Dose: Not Given Documented By: SONAM Non-Admin Reason: NPO Senna (Sennosides 8.6 Mg Tablet) 17.2 mg PO BEDTIME [facility] Last Admin: 05/22/23 20:04 Dose: Not Given Documented By: ANGELY Non-Admin Reason: NPO Sodium Chloride (0.9 % Sodium Chloride Flush 3 Ml Syringe) 3 ml IVFLUSH QSHIFT [facility] Last Admin: 05/23/23 00:50 Dose: Not Given Documented By: DARIA Non-Admin Reason: IV Running Tamsulosin HCl (Tamsulosin Hcl 0.4 Mg Capsule) 0.4 mg PO BEDTIME [facility] Last Admin: 05/22/23 20:04 Dose: Not Given Documented By: ANGELY Non-Admin Reason: NPO Trolamine Salicylate (Trolamine Salicylate 10 % Cream 85 Gm Tube) 1 appl TOPICAL TID PRN; Protocol PRN Reason: Pain, Mild (Pain Scale 1-3) Last Admin: 05/20/23 20:37 Dose: 1 appl Documented By: NICOLA Labs 05/20/23 08:47 05/23/23 05:42 Labs: Laboratory Results - last 24 hr 05/23/23 05:42 Hold Purple Top SEE NOTE PT 16.7 H INR 1.4 H Anion Gap 12 Estim Creat Clear Calc 48.9 Estimated GFR > 60 Random Glucose 130 H Calcium 8.8 Procedures Date of Service Date of Service: 05/23/23 Progress Note: A&P Assessment and plan (1) Ileus: Status: Acute (2) Protein calorie malnutrition: Status: Acute (3) Anticoagulated on Coumadin: Status: Acute (4) Frequent falls: Status: Acute (5) Right rib fracture: Status: Acute (6) Abdominal wall contusion: Status: Acute (7) Acute renal failure: Status: Acute (8) Constipation: Status: Acute Plan A communicated with the nurse since the patient's nasogastric tube is not secured and it is falling out. Per nursing notes, the patient appears to have received 1600 cc p.o.; in the setting of an ileus, this is not advised since the intestines are not working and increase the risk of aspiration as well as prolonging the ileus since the muscularis needs to recover. Consider a non osmotic enema given the patient's self rectal exam and concern regarding firm stool. His renal function precludes administration of phosphate/osmotic enemas. Consider TPN; consider Gastrografin small-bowel follow-through. I will be away starting noon today. Please consult the surgeon on-call if additional input regarding patient management is required. Time Spent With Patient Time: Total time managing care of this patient today ____ minutes. Quality Stroke Does the patient have a stroke diagnosis?: No VTE Prior VTE?: No VTE Risk Level:: Medical - moderate - high VTE Device Contraindication: N/A - Device Ordered VTE Drug Contraindication: Treatment Not Indicated
[2023-05-23] MEDS: Morphine Sulfate 2 MG/ML CARTRIDGE 1 MG IVPUSH ×2 (10:59→23:58)
--- NOTE | 2023-05-23 11:53 | P.PNIM_ITS ---
Subjective Subjective Date of Service: 05/23/23 Interval History: Continues to have drainage through NG tube. States abdomen feels less taut Review of Systems Denies chest pain Denies shortness of breath Denies nausea vomiting diarrhea Denies fever chills Physical Exam 2 Vital Signs: Vital Signs: Last Vital Signs Temp 98.4 F 05/23/23 07:50 Pulse 69 05/23/23 07:50 Resp 17 05/23/23 07:50 BP 135/69 05/23/23 07:50 Pulse Ox 92 05/23/23 07:50 O2 Del Method Room Air 05/23/23 07:50 O2 Flow Rate 1 05/18/23 07:16 BMI result Body Mass Index 32.4 Const: Other: Awake ill-appearing Resp: Other: Clear to auscultation bilaterally no rales rhonchi or wheezes Cardio: Other: No S4; positive S1-S2; no S3 murmurs rubs or gallops GI: Other: Distended slightly tympanitic. Quiet bowel sounds Extrem: Other: No edema bilaterally Objective Data Active Medications Acetaminophen (Acetaminophen 325 Mg Tablet) 650 mg PO Q6H PRN PRN Reason: Pain, Mild (Pain Scale 1-3) Last Admin: 05/20/23 02:39 Dose: 650 mg Documented By: GUZMAN Al Hydroxide/Mg Hydroxide (Magnesium Hydrox/Alum Hydrox 30 Ml Oral.Susp) 30 ml PO Q4H PRN PRN Reason: Heartburn/Nausea Last Admin: 05/20/23 08:41 Dose: 30 ml Documented By: FOGARTAngelica Docusate Sodium (Docusate Sodium 100 Mg Capsule) 100 mg PO BID [facility] Last Admin: 05/23/23 09:09 Dose: Not Given Documented By: SONAM Non-Admin Reason: NPO Dextrose (D5w) 1,000 mls @ 100 mls/hr IVCONT .Q10H [facility] Last Admin: 05/23/23 05:21 Dose: 100 mls/hr Documented By: DARIA Melatonin (Melatonin 3 Mg Tablet) 6 mg PO BEDTIME PRN PRN Reason: Insomnia Last Admin: 05/19/23 03:23 Dose: 6 mg Documented By: GUZMAN Morphine Sulfate (Morphine Sulfate 2 Mg/Ml Cartridge) 1 mg IVPUSH Q4H PRN; Protocol PRN Reason: Pain, Moderate(Pain Scale 4-6) Last Admin: 05/23/23 10:59 Dose: 1 mg Documented By: SONAM Multivitamins/Vitamin C (Multivitamin Tablet) 1 tab PO DAILY [facility] Last Admin: 05/23/23 09:09 Dose: Not Given Documented By: SONAM Non-Admin Reason: NPO Ondansetron HCl (Ondansetron Hcl 4 Mg/2 Ml Vial) 4 mg IVPUSH Q8H PRN PRN Reason: Nausea and Vomiting Last Admin: 05/20/23 02:58 Dose: 4 mg Documented By: CAREYRISGarfield Polyethylene Glycol (Polyethylene Glycol 3350 17 Gm Powd.Pack) 17 gm PO DAILY [facility] Last Admin: 05/23/23 09:09 Dose: Not Given Documented By: SONAM Non-Admin Reason: NPO Senna (Sennosides 8.6 Mg Tablet) 17.2 mg PO BEDTIME [facility] Last Admin: 05/22/23 20:04 Dose: Not Given Documented By: ANGELY Non-Admin Reason: NPO Sodium Chloride (0.9 % Sodium Chloride Flush 3 Ml Syringe) 3 ml IVFLUSH QSHIFT [facility] Last Admin: 05/23/23 09:09 Dose: Not Given Documented By: SONAM Non-Admin Reason: IV Running Tamsulosin HCl (Tamsulosin Hcl 0.4 Mg Capsule) 0.4 mg PO BEDTIME [facility] Last Admin: 05/22/23 20:04 Dose: Not Given Documented By: ANGELY Non-Admin Reason: NPO Trolamine Salicylate (Trolamine Salicylate 10 % Cream 85 Gm Tube) 1 appl TOPICAL TID PRN; Protocol PRN Reason: Pain, Mild (Pain Scale 1-3) Last Admin: 05/20/23 20:37 Dose: 1 appl Documented By: NICOLA Labs 05/20/23 08:47 05/23/23 05:42 Labs: Laboratory Results - last 24 hr 05/23/23 05:42 Hold Purple Top SEE NOTE PT 16.7 H INR 1.4 H Anion Gap 12 Estim Creat Clear Calc 48.9 Estimated GFR > 60 Random Glucose 130 H Calcium 8.8 Assessment and Plan (1) Hypernatremia: Status: Acute (2) SBO (small bowel obstruction): Status: Acute Plan 82 year old pleasant white male with history of PAF, HTN, HLD, CHF, SHALONDA, ED, Prostate cancer, Bladder cancer and recent mechanical fall with resultant 9th & 10th rib fractures and lung contusion ; developed SBO now on NG decompression 1.Hypernatremia -free water deficit remains 1.5 L -continue D5 W as ordered -follow renals/divalents 2.SBO -continue NGT to LIS -NPO for now with ice chips -Nutrition consult pending 3.Supratherapeutic INR/paraoxysmal atrial fibrillation -INR now 1.4 (target 2-3) -Given NPO status... 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
--- NOTE | 2023-05-23 14:35 | MHC.CM.PN ---
Per MD rounds no discharge today. The patient continues with NG tube. Dark drainage continues. DP confirmed with patient DP is still home with [facility]. Patients will transport.
[2023-05-23 15:04] VITALS: BMI 32.4
--- NOTE | 2023-05-23 15:32 | PC.NURSE ---
Soap suds enema administered per order. Pt currently retaining enema contents . Some light brown liquid drained. Awaiting enema results.
--- NOTE | 2023-05-23 15:33 | MHC.CLN ---
NUTRITION COMMUNICATED WITH MD. PLAN FOR PATIENT TO BEGIN PARENTERAL NUTRITION TOMORROW. NPO SINCE 05/20 WITH PATIENT REPORTING THAT HE HASN'T EATEN SINCE 05/19. CURRENTLY WITH PERIPHERAL LINE. QUESTION IF WILL RECEIVE CENTRAL LINE. IF PPN, RECOMMEND START AT 35 ML PER HOUR, 84 G DEXTROSE, 36 G PROTEIN, 428 KCALS. IF TPN, RECOMMEND START AT 30 ML PER HOUR, 108 G DEXTROSE, 36 G PROTEIN, 511 KCALS. REPLETE LYTES NEEDED. CHECK TRIGLYCERIDES. FOLLOW FOR PARENTERAL NUTRITION NEEDS AND DIET ADVANCEMENT. SEE CLINICAL NUTRITION ASSESSMENT 05/23/23.
[2023-05-23 15:48] VITALS: BP 133/82; PULSE 70; RESP 18; TEMP 37; O2SAT 92
--- NOTE | 2023-05-23 17:26 | PC.NURSE ---
per order NG tube was connected to suction for 1 hr. There was 50ml of dark brown fluid drained. NG tube clamped at 1730 per order for next 4 hrs - will report to the retail shift manager
[2023-05-23 19:03] VITALS: BP 134/64; PULSE 70; RESP 17; TEMP 36.5; O2SAT 95
[2023-05-24 03:26] VITALS: BP 134/71; PULSE 69; RESP 17; TEMP 36.7; O2SAT 94
[2023-05-24 06:17] LABS: Anion Gap 11 (12-20); Blood Urea Nitrogen 34 mg/dL (9-16); Calcium 8.2 mg/dL (8.4-10.2); Carbon Dioxide 30 mmol/L (22-29); Chloride 104 mmol/L (96-108); Creatinine Clr Calc Pharmacy 52.7; Estimated Glomerular Filt Rate > 60; Glucose Random 121 mg/dL (60-115); Magnesium 2.5 mg/dL (1.6-2.6); Phosphorus 2.6 mg/dL (2.7-4.5); Potassium 3.1 mmol/L (3.3-5.1); Sodium 142 mmol/L (135-145)
[2023-05-24 07:49] VITALS: BP 132/71; PULSE 69; RESP 17; TEMP 37.7; O2SAT 93
[2023-05-24 08:16] LABS: Albumin Level 2.9 g/dL (3.5-5.0)
--- NOTE | 2023-05-24 10:18 | HO.PICC ---
PICC Line Insertion NPICC Diagnosis: [] Indication: TPN Pertinent Labs: REVIEWED Technique: Following informed consent including risks, benefits and alternatives and using sterile technique including cap and mask, sterile gown, glove and drape, the RIGHT arm was prepped and draped in the usual sterile fashion of full barrier technique with CHG. Following completion of [place] Protocol the skin and soft tissues were anesthetized with 1% Lidocaine plain. Using ultrasound guidance, RIGHT BASILIC vein access was obtained. Over an 0.018 wire through peel-away sheath, a 5FR TRIPLE LUMEN PICC line PASV was positioned. Catheter length is 44CM internal length, AT THE 0CM AT THE BLAIRE external length, for a total trimmed length of 44CM. The procedure was performed in RM 272. Tip verification was performed by Marie Tee with Arthur 3CG. Tip located in SVC. Ultrasound was used to document vein patency and for needle entry. A CXR IS NEEDED FOR PICC PLACEMENT DUE TO HISTORY OF AFIB/PACER. Vascular Financial Accounting Manager has released the line for use and it is currently dressed with a StatLock, Tegaderm, and CHG disc. Verification has been performed for blood return and line patency. Arm Circumference: 28CM Equipment: Matchup POWER PICC SOLO Catheter Type: 5FR TRIPLE LUMEN PICC PASV Lot #: [id number]
--- NOTE | 2023-05-24 10:43 | MHC.CLN ---
F/U PLAN FOR PATIENT TO BEGIN TPN PICC LINE PLACED DISCUSSED WITH MD MOELLER SINCE 05/20 WITH PATIENT REPORTING THAT HE HASN'T EATEN SINCE 05/19 RECOMMEND START TPN AT 30 ML PER HOUR TO PROVIDE 511 KCALS, 108 G DEXTROSE, 36 G PROTEIN DISCUSSED WITH PHARMACY REPLETE LYTES NEEDED CHECK TRIGLYCERIDES 05/25
[2023-05-24 10:56] LABS: Basophils Absolute Auto 0.1 X10*3/uL (0.0-0.2); Basophils Percent Auto 0.5 % (0-2); Eosinophils Absolute Auto 0.2 X10*3/uL (0.0-0.4); Eosinophils Percent Auto 1.8 % (0-4); Hematocrit 36.8 % (42.0-52.0); Hemoglobin 11.8 g/dl (14.0-18.0); Imm Gran Abs Auto 0.36 X10*3/uL (0.00-0.03); Imm Gran Pct Auto 2.7 % (0.0-0.4); Lymphocytes Absolute Auto 1.3 X10*3/uL (1.2-4.9); Lymphocytes Percent Auto 10.1 % (20-40); MANUAL DIFF FLAG SCAN; Mean Corpuscular HGB Conc 32.1 g/dl (31.0-36.0); Mean Corpuscular Hemoglobin 29.6 pg (27.0-33.0); Mean Corpuscular Volume 92.2 fL (80.0-98.0); Mean Platelet Volume 10.7 fL (9.4-12.4); Monocytes Absolute Auto 1.6 X10*3/uL (0.1-1.2); Monocytes Percent Auto 12.3 % (2-11); NRBC Pct Auto 0.3 /100WBC (0.0-0.2); Neutrophils Absolute Auto 9.6 x10*3/uL (2.0-8.3); Neutrophils Percent Auto 72.6 % (45-73); Platelet Count 221 X10*3/uL (160-400); Red Blood Count 3.99 X10*6/uL (4.60-5.80); Red Cell Distribution Width 12.9 % (11.0-16.0); SCAN SMEAR FLAG 1; White Blood Count 13.2 X10*3/uL (4.8-10.8)
[2023-05-24] MEDS: Morphine Sulfate 2 MG/ML CARTRIDGE 1 MG IVPUSH (11:20)
[2023-05-24 11:21] LABS: SLIDE REVIEW VERIFIED
--- NOTE | 2023-05-24 14:26 | PM.PNGS ---
Subjective Subjective Date of Service: 05/24/23 <Radha Hoff PA-C - Last Filed: 05/24/23 14:28> 05/24/23 <Shahzad Lee MD - Last Filed: 05/24/23 16:16> Interval history: Denies abd pain, nausea. Passing flatus and has had multiple loose stools. Wants NGT out. <Radha Hoff PA-C - Last Filed: 05/24/23 14:28> Physical Exam Vital Signs: Vital Signs: Last Vital Signs Temp 99.8 F 05/24/23 07:49 Pulse 69 05/24/23 07:49 Resp 17 05/24/23 07:49 BP 132/71 05/24/23 07:49 Pulse Ox 93 05/24/23 07:49 O2 Del Method Room Air 05/24/23 07:49 O2 Flow Rate 1 05/18/23 07:16 BMI result Body Mass Index 32.4 <Radha Hoff PA-C - Last Filed: 05/24/23 14:28> Const: General: comfortable, no acute distress and alert <Radha Hoff PA-C - Last Filed: 05/24/23 14:28> GI: Inspection: Yes distended (mild) <Radha Hoff PA-C - Last Filed: 05/24/23 14:28> Palpation (GI): Soft to palpation, nontender, no guarding and not rigid <Radha Hoff PA-C - Last Filed: 05/24/23 14:28> Objective Data Active Medications Acetaminophen (Acetaminophen 325 Mg Tablet) 650 mg PO Q6H PRN PRN Reason: Pain, Mild (Pain Scale 1-3) Last Admin: 05/20/23 02:39 Dose: 650 mg Documented By: GUZMAN Al Hydroxide/Mg Hydroxide (Magnesium Hydrox/Alum Hydrox 30 Ml Oral.Susp) 30 ml PO Q4H PRN PRN Reason: Heartburn/Nausea Last Admin: 05/20/23 08:41 Dose: 30 ml Documented By: SUSANNAH Docusate Sodium (Docusate Sodium 100 Mg Capsule) 100 mg PO BID [facility] Last Admin: 05/24/23 10:54 Dose: Not Given Documented By: KIRA Non-Admin Reason: NPO Nutrition (Parenteral) (Parenteral Nutrition) 720 mls @ 30 mls/hr IV .Q24H [facility]; Protocol Stop: 05/25/23 20:59 Melatonin (Melatonin 3 Mg Tablet) 6 mg PO BEDTIME PRN PRN Reason: Insomnia Last Admin: 05/19/23 03:23 Dose: 6 mg Documented By: GUZMAN Morphine Sulfate (Morphine Sulfate 2 Mg/Ml Cartridge) 1 mg IVPUSH Q4H PRN; Protocol PRN Reason: Pain, Moderate(Pain Scale 4-6) Last Admin: 05/24/23 11:20 Dose: 1 mg Documented By: KIRA Multivitamins/Vitamin C (Multivitamin Tablet) 1 tab PO DAILY [facility] Last Admin: 05/24/23 10:54 Dose: Not Given Documented By: KIRA Non-Admin Reason: NPO Ondansetron HCl (Ondansetron Hcl 4 Mg/2 Ml Vial) 4 mg IVPUSH Q8H PRN PRN Reason: Nausea and Vomiting Last Admin: 05/20/23 02:58 Dose: 4 mg Documented By: GUZMAN Pharmacy Consult (Consult Rx Parenteral Nutrition Ordering) 1 each MISCELLANE DAILY PRN PRN Reason: Consult order Polyethylene Glycol (Polyethylene Glycol 3350 17 Gm Powd.Pack) 17 gm PO DAILY [facility] Last Admin: 05/24/23 10:54 Dose: Not Given Documented By: KIRA Non-Admin Reason: NPO Senna (Sennosides 8.6 Mg Tablet) 17.2 mg PO BEDTIME [facility] Last Admin: 05/23/23 20:54 Dose: Not Given Documented By: RAHUL Non-Admin Reason: NPO Sodium Chloride (0.9 % Sodium Chloride Flush 3 Ml Syringe) 3 ml IVFLUSH QSHIFT [facility] Last Admin: 05/24/23 10:53 Dose: Not Given Documented By: KIRA Non-Admin Reason: IV Running Sodium Chloride (0.9 % Sodium Chloride Flush 10 Ml Syringe) 5 ml IVFLUSH TID [facility] Tamsulosin HCl (Tamsulosin Hcl 0.4 Mg Capsule) 0.4 mg PO BEDTIME [facility] Last Admin: 05/23/23 20:54 Dose: Not Given Documented By: RAHUL Non-Admin Reason: NPO Trolamine Salicylate (Trolamine Salicylate 10 % Cream 85 Gm Tube) 1 appl TOPICAL TID PRN; Protocol PRN Reason: Pain, Mild (Pain Scale 1-3) Last Admin: 05/20/23 20:37 Dose: 1 appl Documented By: NICOLA <Radha Hoff PA-C - Last Filed: 05/24/23 14:28> Labs CBC & Chem 7: 05/24/23 05:42 05/24/23 05:45 <Radha Hoff PA-C - Last Filed: 05/24/23 14:28> Labs: Laboratory Results - last 24 hr 05/24/23 05/24/23 05:42 05:45 MCV 92.2 MCH 29.6 MCHC 32.1 RDW 12.9 Plt Count 221 MPV 10.7 Immature Gran % (Auto) 2.7 H Neut % (Auto) 72.6 Lymph % (Auto) 10.1 L Ness % (Auto) 12.3 H Eos % (Auto) 1.8 Baso % (Auto) 0.5 Lymph # (Auto) 1.3 Ness # (Auto) 1.6 H Eos # (Auto) 0.2 Baso # (Auto) 0.1 Abs Immat Gran (auto) 0.36 H Absolute Neuts (auto) 9.6 H Absolute Nucleated RBC 0.040 H Nucleated RBC % (auto) 0.3 H Smear Tech's Comments VERIFIED Hold Purple Top SEE NOTE PT 24.0 H D INR 2.0 H Anion Gap 11 L Estim Creat Clear Calc 52.7 Estimated GFR > 60 Random Glucose 121 H Calcium 8.2 L D Phosphorus 2.6 L Magnesium 2.5 Albumin 2.9 L <Radha Hoff PA-C - Last Filed: 05/24/23 14:28> Procedures Date of Service Date of Service: 05/24/23 <Radha Hoff PA-C - Last Filed: 05/24/23 14:28> 05/24/23 <Shahzad Lee MD - Last Filed: 05/24/23 16:16> Progress Note: A&P Assessment and plan (1) Ileus: Status: Acute <Radha Hoff PA-C - Last Filed: 05/24/23 14:28> Assessment and Plan: NGT has had scant output and abdomen is benign with evidence of return of GI function. Will dc NGT, advance to clears. To be started on TPN by medicine according to RN. <Radha Hoff PA-C - Last Filed: 05/24/23 14:28> NGT has had scant output and abdomen is benign with evidence of return of GI function. Will dc NGT, advance to clears. To be started on TPN by medicine according to RN. Agree with the above assessment and plan. Patient still distended but feels much improved after at passing multiple soft bowel movements. NG tube with minimal output. Continue non operative management. <Shahzad Lee MD - Last Filed: 05/24/23 16:16> Time Spent With Patient Time: Total time managing care of this patient today ____ minutes. <Radha Hoff PA-C - Last Filed: 05/24/23 14:28> Quality Stroke Does the patient have a stroke diagnosis?: No <Radha Hoff PA-C - Last Filed: 05/24/23 14:28> VTE Prior VTE?: No <Rahda Hoff PA-C - Last Filed: 05/24/23 14:28> VTE Risk Level:: Medical - moderate - high <Radha Hoff PA-C - Last Filed: 05/24/23 14:28> VTE Device Contraindication: N/A - Device Ordered <Radha Hoff PA-C - Last Filed: 05/24/23 14:28> VTE Drug Contraindication: Treatment Not Indicated <Radha Hoff PA-C - Last Filed: 05/24/23 14:28>
[2023-05-24 15:12] VITALS: BP 140/69; PULSE 69; RESP 18; TEMP 37.2; O2SAT 90
--- NOTE | 2023-05-24 15:30 | PC.NURSE ---
NG- tube removed at 1515 without complications. Patient tolerated well. Mouth care provided immediately after removal.
--- NOTE | 2023-05-24 15:46 | P.PNIM_ITS ---
Subjective Subjective Date of Service: 05/24/23 Interval History: seen and examined follow up for fall/rib fractures/hematoma and sbo pt reports having multiple BMs, abdominal pain improving no sob reporting right arm pain Review of Systems Review of Systems: Yes all other systems are reviewed and are negative Constitutional Constitutional: Denies chills and Denies fever(s) Cardiovascular Cardiovascular: Denies chest pain and Denies dyspnea Respiratory Respiratory: Denies dyspnea Gastrointestinal Gastrointestinal: Denies abdominal pain Physical Exam 2 Vital Signs: Vital Signs: Last Vital Signs Temp 99.0 F 05/24/23 15:12 Pulse 69 05/24/23 15:12 Resp 18 05/24/23 15:12 BP 140/69 H 05/24/23 15:12 Pulse Ox 90 L 05/24/23 15:12 O2 Del Method Room Air 05/24/23 15:12 O2 Flow Rate 1 05/18/23 07:16 BMI result Body Mass Index 32.4 Const: General: cooperative, comfortable, no acute distress, alert and awake Nutritional Appearance: overweight Orientation/consciousness: patient oriented x3 HEENT: Other: NGT in place draining dark material Resp: Effort & Inspection: normal respiratory effort, able to speak in complete sentences, no respiratory distress and no use of accessory muscles Cardio: Rate: regular rate GI: Inspection: No distended Palpation (GI): Soft to palpation Skin: Other: bruising to right side and left thigh Neuro: General: patient oriented x3, moves all extremities and CN's II-XI intact bilaterally Extrem: General: Yes no pedal edema Objective Data Active Medications Acetaminophen (Acetaminophen 325 Mg Tablet) 650 mg PO Q6H PRN PRN Reason: Pain, Mild (Pain Scale 1-3) Last Admin: 05/20/23 02:39 Dose: 650 mg Documented By: GUZMAN Al Hydroxide/Mg Hydroxide (Magnesium Hydrox/Alum Hydrox 30 Ml Oral.Susp) 30 ml PO Q4H PRN PRN Reason: Heartburn/Nausea Last Admin: 05/20/23 08:41 Dose: 30 ml Documented By: SUSANNAH Docusate Sodium (Docusate Sodium 100 Mg Capsule) 100 mg PO BID SUDARSHAN Last Admin: 05/24/23 10:54 Dose: Not Given Documented By: KIRA Non-Admin Reason: NPO Nutrition (Parenteral) (Parenteral Nutrition) 720 mls @ 30 mls/hr IV .Q24H SUDARSHAN; Protocol Stop: 05/25/23 20:59 Melatonin (Melatonin 3 Mg Tablet) 6 mg PO BEDTIME PRN PRN Reason: Insomnia Last Admin: 05/19/23 03:23 Dose: 6 mg Documented By: GUZMAN Morphine Sulfate (Morphine Sulfate 2 Mg/Ml Cartridge) 1 mg IVPUSH Q4H PRN; Protocol PRN Reason: Pain, Moderate(Pain Scale 4-6) Last Admin: 05/24/23 11:20 Dose: 1 mg Documented By: KIRA Multivitamins/Vitamin C (Multivitamin Tablet) 1 tab PO DAILY SUDARSHAN Last Admin: 05/24/23 10:54 Dose: Not Given Documented By: KIRA Non-Admin Reason: NPO Ondansetron HCl (Ondansetron Hcl 4 Mg/2 Ml Vial) 4 mg IVPUSH Q8H PRN PRN Reason: Nausea and Vomiting Last Admin: 05/20/23 02:58 Dose: 4 mg Documented By: GUZMAN Pharmacy Consult (Consult Rx Parenteral Nutrition Ordering) 1 each MISCELLANE DAILY PRN PRN Reason: Consult order Polyethylene Glycol (Polyethylene Glycol 3350 17 Gm Powd.Pack) 17 gm PO DAILY [facility] Last Admin: 05/24/23 10:54 Dose: Not Given Documented By: KIRA Non-Admin Reason: NPO Senna (Sennosides 8.6 Mg Tablet) 17.2 mg PO BEDTIME SUDARSHAN Last Admin: 05/23/23 20:54 Dose: Not Given Documented By: RAHUL Non-Admin Reason: NPO Sodium Chloride (0.9 % Sodium Chloride Flush 3 Ml Syringe) 3 ml IVFLUSH QSHIFT [facility] Last Admin: 05/24/23 10:53 Dose: Not Given Documented By: KIRA Non-Admin Reason: IV Running Sodium Chloride (0.9 % Sodium Chloride Flush 10 Ml Syringe) 5 ml IVFLUSH TID SUDARSHAN Tamsulosin HCl (Tamsulosin Hcl 0.4 Mg Capsule) 0.4 mg PO BEDTIME [facility] Last Admin: 05/23/23 20:54 Dose: Not Given Documented By: RAHUL Non-Admin Reason: NPO Trolamine Salicylate (Trolamine Salicylate 10 % Cream 85 Gm Tube) 1 appl TOPICAL TID PRN; Protocol PRN Reason: Pain, Mild (Pain Scale 1-3) Last Admin: 05/20/23 20:37 Dose: 1 appl Documented By: NICOLA Labs 05/24/23 05:42 05/24/23 05:45 Labs: Laboratory Results - last 24 hr 05/24/23 05/24/23 05:42 05:45 MCV 92.2 MCH 29.6 MCHC 32.1 RDW 12.9 Plt Count 221 MPV 10.7 Immature Gran % (Auto) 2.7 H Neut % (Auto) 72.6 Lymph % (Auto) 10.1 L [place] % (Auto) 12.3 H Eos % (Auto) 1.8 Baso % (Auto) 0.5 Lymph # (Auto) 1.3 [place] # (Auto) 1.6 H Eos # (Auto) 0.2 Baso # (Auto) 0.1 Abs Immat Gran (auto) 0.36 H Absolute Neuts (auto) 9.6 H Absolute Nucleated RBC 0.040 H Nucleated RBC % (auto) 0.3 H Smear Tech's Comments VERIFIED Hold Purple Top SEE NOTE PT 24.0 H D INR 2.0 H Anion Gap 11 L Estim Creat Clear Calc 52.7 Estimated GFR > 60 Random Glucose 121 H Calcium 8.2 L D Phosphorus 2.6 L Magnesium 2.5 Albumin 2.9 L Assessment and Plan (1) SBO (small bowel obstruction): Status: Acute (2) Constipation: Status: Acute Plan 82 year old pleasant white male with history of PAF, HTN, HLD, CHF, SHALONDA, ED, Prostate cancer, Bladder cancer and recent mechanical fall with resultant 9th & 10th rib fractures and lung contusion here with SBO discussed with surgery, NGT clamped, will remove if low residuals General surgery following NPO, PICC placed 05/24 for TPN encourage oob ambulating right arm pain reports r/t previous fall will obtain xrays Hypernatremia resolved Supratherapeutic INR/paraoxysmal atrial fibrillation INR now 2.0 (target 2-3) H/H stable s/p vitamin K x2 resume warfarin 5 mg daily when able to tolerate po JB on CKD3. Resolved possible component of pre-renal azotemia given soft BP continue to hold Lisinopril and Lasix Right lower quadrant abdominal pain due to fall and hematoma H/H has remained stable PRN analgesics stercoral colitis continue bowel regimen when SBO resolves s/p fleets enema Frequent falls pt says he strained his shoulder carrying something heavy which caused him to slip the first time, then he slipped in his socks on the hardwood floor seen by PT - rec home with PT services when medically ready Multiple rib fractures right 9, 10 and 11 ribs (non-displaced) breathing well without splinting continue pain control, IS HTN bp soft hold lisinopril, lasix, norvasc follow bp closely SHALONDA has not yet received CPAp machine DVT: mechanical devices, INR therapeutic 2.0 CODE STATUS: Full code attending Dr. Yo Ongoing inpatient stay for management of bowel obstruction, TPN, closely monitoring of INR/blood pressure Quality Stroke Does the patient have a stroke diagnosis?: No VTE Prior VTE?: No VTE Risk Level:: Medical - moderate - high VTE Device Contraindication: N/A - Device Ordered VTE Drug Contraindication: Treatment Not Indicated
[2023-05-24 19:49] VITALS: BP 126/79; PULSE 80; RESP 17; TEMP 37.6; O2SAT 92
[2023-05-24] MEDS: Parenteral Nutrition 720 ML 30 ML IV (21:41)
[2023-05-24] MEDS: 0.9 % Sodium Chloride Flush 10 ML SYRINGE 5 ML IVFLUSH (21:42)
[2023-05-25 02:37] VITALS: BP 122/62; PULSE 70; RESP 18; TEMP 37.1; O2SAT 92
[2023-05-25 06:32] LABS: INTERNATIONAL NORM RATIO 1.7 (0.9-1.1); Prothrombin Time 21.1 SEC (11.1-13.3)
[2023-05-25 06:35] LABS: Anion Gap 15 (12-20); Blood Urea Nitrogen 28 mg/dL (9-16); Calcium 8.3 mg/dL (8.4-10.2); Carbon Dioxide 29 mmol/L (22-29); Chloride 102 mmol/L (96-108); Creatinine Clr Calc Pharmacy 54.2; Estimated Glomerular Filt Rate > 60; Glucose Random 116 mg/dL (60-115); Potassium 3.3 mmol/L (3.3-5.1); Sodium 143 mmol/L (135-145)
[2023-05-25 06:55] LABS: Magnesium 2.5 mg/dL (1.6-2.6); Phosphorus 2.3 mg/dL (2.7-4.5); Triglycerides 68 mg/dL (<150)
[2023-05-25 07:32] VITALS: BP 131/62; PULSE 69; RESP 18; TEMP 36.9; O2SAT 93
[2023-05-25 08:24] LABS: Basophils Percent Auto 0.2 % (0-2); Hematocrit 35.1 % (42.0-52.0); Hemoglobin 11.3 g/dl (14.0-18.0); Imm Gran Abs Auto 0.45 X10*3/uL (0.00-0.03); Imm Gran Pct Auto 2.6 % (0.0-0.4); Lymphocytes Absolute Auto 1.6 X10*3/uL (1.2-4.9); Lymphocytes Percent Auto 9.3 % (20-40); MANUAL DIFF FLAG SCAN; Mean Corpuscular HGB Conc 32.2 g/dl (31.0-36.0); Mean Corpuscular Hemoglobin 29.6 pg (27.0-33.0); Mean Corpuscular Volume 91.9 fL (80.0-98.0); Monocytes Absolute Auto 1.7 X10*3/uL (0.1-1.2); Monocytes Percent Auto 9.9 % (2-11); NRBC Pct Auto 0.2 /100WBC (0.0-0.2); Neutrophils Absolute Auto 13.4 x10*3/uL (2.0-8.3); Platelet Count 220 X10*3/uL (160-400); Red Blood Count 3.82 X10*6/uL (4.60-5.80); Red Cell Distribution Width 12.9 % (11.0-16.0); SCAN SMEAR FLAG 1; White Blood Count 17.2 X10*3/uL (4.8-10.8)
[2023-05-25 08:52] LABS: SLIDE REVIEW VERIFIED
[2023-05-25] MEDS: Potassium Phosphate/NS 15 MMOL/250 ML PLAST..BAG 62.5 MMOL IV (09:10)
[2023-05-25] MEDS: 0.9 % Sodium Chloride Flush 10 ML SYRINGE 5 ML IVFLUSH ×3 (09:10→22:14)
--- NOTE | 2023-05-25 10:15 | MHC.CLN ---
Addendum entered by Maggi Salmeron, LATISHA 05/25/23 14:35: DIET ADVANCED TO REGULAR, LOW FIBER 05/25. FOLLOW FOR PO INTAKE AND NUTRITIONAL NEEDS. Original Note: F/U PICC LINE PLACED. NGT OUT AND STARTED CLEAR LIQUIDS 05/24. CONTINUE TPN. LABS REVIEWED. DISCUSSED WITH PHARMACY. RECOMMEND DAY 2 TPN 05/25: TPN AT 45 ML PER HOUR TO PROVIDE 767 KCALS, 162 G DEXTROSE, 54 G PROTEIN. REPLETE LYTES NEEDED. RECOMMEND DAY 3 TPN 05/26: TPN AT 65 ML PER HOUR, ADD 70 G LIPIDS TO PROVIDE 1808 KCALS (27.5 KCALS/KG CMW), 234 G DEXTROSE, 78 G PROTEIN (1.2 G/KG CMW). REPLETE LYTES NEEDED. FOLLOW FOR TPN TOLERANCE, LYTES, DIET ADVANCEMENT AND PO INTAKE.
[2023-05-25 10:38] VITALS: BP 131/62; PULSE 69; O2SAT 93
--- NOTE | 2023-05-25 11:36 | MHC.CM.PN ---
PER MD ROUNDS, PT NOT READY TO [place] DCP REMAINS HOME VIA FAMILY TRANSPORT A REFERRAL HAS ALSO BEEN MADE TO [place] IN CASE SERVICES ARE INDICATED AT [place]
[2023-05-25] MEDS: Morphine Sulfate 2 MG/ML CARTRIDGE 1 MG IVPUSH (12:22)
--- NOTE | 2023-05-25 15:17 | P.PNIM_ITS ---
Subjective Subjective Date of Service: 05/25/23 Interval History: seen and examined this morning follow up for hematoma, rib fractures, sbo still passing gas, no abdominal pain. having some right foot pain no sob no cough Review of Systems Review of Systems: Yes all other systems are reviewed and are negative Constitutional Constitutional: Denies chills and Denies fever(s) Cardiovascular Cardiovascular: Denies chest pain, Denies palpitations and Denies dyspnea Respiratory Respiratory: Denies cough and Denies dyspnea Gastrointestinal Gastrointestinal: Denies abdominal pain Endocrine Endocrine: Denies palpitations Physical Exam 2 Vital Signs: Vital Signs: Last Vital Signs Temp 98.5 F 05/25/23 07:32 Pulse 69 05/25/23 10:38 Resp 18 05/25/23 07:32 BP 131/62 05/25/23 10:38 Pulse Ox 93 05/25/23 10:38 O2 Del Method Room Air 05/25/23 07:32 O2 Flow Rate 1 05/18/23 07:16 BMI result Body Mass Index 32.4 Const: General: cooperative, comfortable, no acute distress, alert and awake Nutritional Appearance: overweight Orientation/consciousness: patient oriented x3 Resp: Effort & Inspection: normal respiratory effort, able to speak in complete sentences, no respiratory distress and no use of accessory muscles Cardio: Rate: regular rate GI: Other: softly distended, no guarding, no rebound; +BS Inspection: No distended Palpation (GI): Soft to palpation Skin: Other: bruising to right side and left thigh Neuro: General: patient oriented x3, moves all extremities and CN's II-XI intact bilaterally Extrem: General: Yes no pedal edema Objective Data Active Medications Acetaminophen (Acetaminophen 325 Mg Tablet) 650 mg PO Q6H PRN PRN Reason: Pain, Mild (Pain Scale 1-3) Last Admin: 05/20/23 02:39 Dose: 650 mg Documented By: GUZMAN Al Hydroxide/Mg Hydroxide (Magnesium Hydrox/Alum Hydrox 30 Ml Oral.Susp) 30 ml PO Q4H PRN PRN Reason: Heartburn/Nausea Last Admin: 05/20/23 08:41 Dose: 30 ml Documented By: SUSANNAH Docusate Sodium (Docusate Sodium 100 Mg Capsule) 100 mg PO BID SUDARSHAN Last Admin: 05/25/23 09:40 Dose: Not Given Documented By: KIRA Non-Admin Reason: Normal bowel movements Nutrition (Parenteral) (Parenteral Nutrition) 720 mls @ 30 mls/hr IV .Q24H SUDARSHAN; Protocol Stop: 05/25/23 20:59 Last Admin: 05/24/23 21:41 Dose: 30 mls/hr Documented By: ELLA Nutrition (Parenteral) (Parenteral Nutrition) 1,080 mls @ 45 mls/hr IV .Q24H SUDARSHAN; Protocol Stop: 05/26/23 20:59 Melatonin (Melatonin 3 Mg Tablet) 6 mg PO BEDTIME PRN PRN Reason: Insomnia Last Admin: 05/19/23 03:23 Dose: 6 mg Documented By: GUZMAN Morphine Sulfate (Morphine Sulfate 2 Mg/Ml Cartridge) 1 mg IVPUSH Q4H PRN; Protocol PRN Reason: Pain, Moderate(Pain Scale 4-6) Last Admin: 05/25/23 12:22 Dose: 1 mg Documented By: JOHNNA Multivitamins/Vitamin C (Multivitamin Tablet) 1 tab PO DAILY [facility] Last Admin: 05/25/23 09:40 Dose: Not Given Documented By: KIRA Non-Admin Reason: Physician Approved Ondansetron HCl (Ondansetron Hcl 4 Mg/2 Ml Vial) 4 mg IVPUSH Q8H PRN PRN Reason: Nausea and Vomiting Last Admin: 05/20/23 02:58 Dose: 4 mg Documented By: GUZMAN Pharmacy Consult (Consult Rx Parenteral Nutrition Ordering) 1 each MISCELLANE DAILY PRN PRN Reason: Consult order Polyethylene Glycol (Polyethylene Glycol 3350 17 Gm Powd.Pack) 17 gm PO DAILY [facility] Last Admin: 05/25/23 09:40 Dose: Not Given Documented By: KIRA Non-Admin Reason: Normal bowel movements Senna (Sennosides 8.6 Mg Tablet) 17.2 mg PO BEDTIME [facility] Last Admin: 05/24/23 20:44 Dose: Not Given Documented By: ELLA Non-Admin Reason: pending PO tolerance Sodium Chloride (0.9 % Sodium Chloride Flush 3 Ml Syringe) 3 ml IVFLUSH QSHIFT [facility] Last Admin: 05/25/23 09:40 Dose: Not Given Documented By: KIRA Non-Admin Reason: Previously Administered Sodium Chloride (0.9 % Sodium Chloride Flush 10 Ml Syringe) 5 ml IVFLUSH TID [facility] Last Admin: 05/25/23 09:10 Dose: 5 ml Documented By: KIRA Tamsulosin HCl (Tamsulosin Hcl 0.4 Mg Capsule) 0.4 mg PO BEDTIME [facility] Last Admin: 05/24/23 20:44 Dose: Not Given Documented By: ELLA Non-Admin Reason: pending PO tolerance Trolamine Salicylate (Trolamine Salicylate 10 % Cream 85 Gm Tube) 1 appl TOPICAL TID PRN; Protocol PRN Reason: Pain, Mild (Pain Scale 1-3) Last Admin: 05/20/23 20:37 Dose: 1 appl Documented By: NICOLA Warfarin Sodium (Warfarin Sodium 5 Mg Tablet) 5 mg PO DAILY@1800 [facility] Labs 05/25/23 05:28 05/25/23 05:28 Labs: Laboratory Results - last 24 hr 05/25/23 05:28 MCV 91.9 MCH 29.6 MCHC 32.2 RDW 12.9 Plt Count 220 MPV 11.0 Immature Gran % (Auto) 2.6 H Neut % (Auto) 78.0 H Lymph % (Auto) 9.3 L [place] % (Auto) 9.9 Eos % (Auto) 0.0 Baso % (Auto) 0.2 Lymph # (Auto) 1.6 [place] # (Auto) 1.7 H Eos # (Auto) 0.0 Baso # (Auto) 0.0 Abs Immat Gran (auto) 0.45 H Absolute Neuts (auto) 13.4 H Absolute Nucleated RBC 0.030 H Nucleated RBC % (auto) 0.2 Smear Tech's Comments VERIFIED Hold Purple Top SEE NOTE PT 21.1 H INR 1.7 H Anion Gap 15 Estim Creat Clear Calc 54.2 Estimated GFR > 60 Random Glucose 116 H Calcium 8.3 L Phosphorus 2.3 L Magnesium 2.5 Triglycerides 68 Assessment and Plan (1) SBO (small bowel obstruction): Status: Acute (2) Right rib fracture: Status: Acute Plan 82 year old pleasant white male with history of PAF, HTN, HLD, CHF, SHALONDA, ED, Prostate cancer, Bladder cancer and recent mechanical fall with resultant 9th & 10th rib fractures and lung contusion here with anemia and hematoma, hospital course complicated by SBO s/p NGT placement improving with conservative management and now with possible pneumonia possible pneumonia CXR 05/24 showing likely atelectasis but can't rule out early infiltrate given increase in white count, will start antibiotics no sepsis blood cultures ordered continue IS SBO NGT removed 05/24, tolerating clear liquids PICC placed 05/24 for TPN, will continue until tolerating solids general surgery following encourage oob ambulating, IS right arm pain reports r/t previous fall xrays negative ortho recommended outpatient follow up Hypernatremia resolved Supratherapeutic INR/paraoxysmal atrial fibrillation INR 1.7 (target 2-3) H/H stable resume warfarin 5 mg daily follow INR daily JB on CKD3. Resolved possible component of pre-renal azotemia given soft BP continue to hold Lisinopril Right lower quadrant abdominal pain due to fall and hematoma H/H has remained stable PRN analgesics stercoral colitis continue bowel regimen when SBO resolves s/p fleets enema and having bowel movements Frequent falls pt says he strained his shoulder carrying something heavy which caused him to slip the first time, then he slipped in his socks on the hardwood floor seen by PT - rec home with PT services when medically ready Multiple rib fractures right 9, 10 and 11 ribs (non-displaced) breathing well without splinting continue pain control, IS HTN bp under adequate control at this time hold lisinopril, norvasc follow bp closely on lasix for leg edema per patient will resume SHALONDA has not yet received CPAp machine DVT: mechanical devices, resume coumadin CODE STATUS: Full code attending Dr. Yo dispo: home vs str when medically ready. will need PICC line removed prior to discharge Ongoing inpatient stay for management of bowel obstruction, TPN, closely monitoring of INR/blood pressure Quality Stroke Does the patient have a stroke diagnosis?: No VTE Prior VTE?: No VTE Risk Level:: Medical - moderate - high VTE Device Contraindication: N/A - Device Ordered VTE Drug Contraindication: Treatment Not Indicated
[2023-05-25 15:44] VITALS: BP 134/66; PULSE 72; RESP 17; TEMP 37.3; O2SAT 92
[2023-05-25] MEDS: Furosemide 40 MG/4 ML VIAL IVPUSH (15:47)
[2023-05-25] MEDS: 0.9 % Sodium Chloride Flush 3 ML SYRINGE IVFLUSH ×2 (15:49→22:18)
[2023-05-25] MEDS: cefTRIAXone sodium 1 GM in 0.9 % Sodium Chloride 50 ML IV (16:48)
[2023-05-25] MEDS: Doxycycline Hyclate 100 MG in 0.9 % Sodium Chloride 250 ML 166.67 MG IV (17:33)
[2023-05-25] MEDS: Warfarin Sodium 5 MG TABLET PO (17:34)
[2023-05-25 19:43] VITALS: BP 120/59; PULSE 70; RESP 17; TEMP 37; O2SAT 92
[2023-05-25] MEDS: Parenteral Nutrition 1,080 ML 45 ML IV (22:08)
[2023-05-25] MEDS: Tamsulosin HCL 0.4 MG CAPSULE PO (22:16)
--- NOTE | 2023-05-25 22:36 | PC.NURSE ---
Pt experiencing frequent loose stools, at least 5 BM's since care was assumed at 1900. Dr. Lopez notified, no new orders placed. Plan of care ongoing.
[2023-05-26 04:00] VITALS: BP 128/61; PULSE 72; RESP 16; TEMP 36.7; O2SAT 92
[2023-05-26] MEDS: Doxycycline Hyclate 100 MG in 0.9 % Sodium Chloride 250 ML 166.67 MG IV ×2 (05:09→18:33)
[2023-05-26] MEDS: Morphine Sulfate 2 MG/ML CARTRIDGE 1 MG IVPUSH ×2 (05:11→12:07)
[2023-05-26] MEDS: Trolamine Salicylate 10 % Cream 85 GM TUBE 1 APPL TOPICAL (05:12)
[2023-05-26 06:24] LABS: Hematocrit 34.1 % (42.0-52.0); Hemoglobin 11.4 g/dl (14.0-18.0); Mean Corpuscular HGB Conc 33.4 g/dl (31.0-36.0); Mean Corpuscular Hemoglobin 30.4 pg (27.0-33.0); Mean Corpuscular Volume 90.9 fL (80.0-98.0); Platelet Count 199 X10*3/uL (160-400); Red Blood Count 3.75 X10*6/uL (4.60-5.80); Red Cell Distribution Width 13.2 % (11.0-16.0); White Blood Count 21.6 X10*3/uL (4.8-10.8)
[2023-05-26 06:30] LABS: INTERNATIONAL NORM RATIO 1.4 (0.9-1.1); Prothrombin Time 17.1 SEC (11.1-13.3)
[2023-05-26 06:42] LABS: Albumin Level 2.9 g/dL (3.5-5.0); Anion Gap 15 (12-20); Blood Urea Nitrogen 27 mg/dL (9-16); Calcium 8.2 mg/dL (8.4-10.2); Carbon Dioxide 28 mmol/L (22-29); Chloride 100 mmol/L (96-108); Creatinine Clr Calc Pharmacy 42.7; Estimated Glomerular Filt Rate 54; Glucose Random 120 mg/dL (60-115); Magnesium 2.2 mg/dL (1.6-2.6); Phosphorus 2.6 mg/dL (2.7-4.5); Potassium 3.2 mmol/L (3.3-5.1); Sodium 140 mmol/L (135-145)
[2023-05-26 06:57] VITALS: BP 152/67; PULSE 76; RESP 16; TEMP 37.6; O2SAT 93
[2023-05-26 08:29] LABS: Uric Acid 8.1 mg/dL (3.4-7.0)
[2023-05-26] MEDS: Multivitamin TABLET 1 TAB PO (09:37)
--- NOTE | 2023-05-26 09:39 | HO.PM.IMPN ---
Subjective Subjective Date of Service: 05/26/23 Interval History: seen and examined this morning follow up for rib fractures, hematoma, SBO belly pain improved, having diarrhea no cough, no sob Review of Systems Review of Systems: Yes all other systems are reviewed and are negative Constitutional Constitutional: Denies chills and Denies fever(s) Cardiovascular Cardiovascular: Denies chest pain, Denies palpitations and Denies dyspnea Respiratory Respiratory: Denies cough and Denies dyspnea Endocrine Endocrine: Denies palpitations Physical Exam Vital Signs: Vital Signs: Last Vital Signs Temp 99.6 F 05/26/23 06:57 Pulse 76 05/26/23 06:57 Resp 16 05/26/23 06:57 BP 152/67 H 05/26/23 06:57 Pulse Ox 93 05/26/23 06:57 O2 Del Method Room Air 05/26/23 06:57 O2 Flow Rate 1 05/18/23 07:16 BMI result Body Mass Index 32.4 Const: General: cooperative, no acute distress, alert and awake Nutritional Appearance: overweight Orientation/consciousness: patient oriented x3 Resp: Other: diminished breath sounds; no rales or wheezing Effort & Inspection: normal respiratory effort, able to speak in complete sentences, no respiratory distress and no use of accessory muscles Cardio: Rate: regular rate GI: Other: softly distended, +BS, no guarding, no rebound Palpation (GI): Soft to palpation Skin: Other: old bruising right side trunk, left leg and groin Neuro: General: patient oriented x3, moves all extremities and CN's II-XI intact bilaterally Extrem: Other: chronic venous stasis changes b/l; swelling right ankle Objective Data Active Medications Acetaminophen (Acetaminophen 325 Mg Tablet) 650 mg PO Q6H PRN PRN Reason: Pain, Mild (Pain Scale 1-3) Last Admin: 05/20/23 02:39 Dose: 650 mg Documented By: GUZMAN Al Hydroxide/Mg Hydroxide (Magnesium Hydrox/Alum Hydrox 30 Ml Oral.Susp) 30 ml PO Q4H PRN PRN Reason: Heartburn/Nausea Last Admin: 05/20/23 08:41 Dose: 30 ml Documented By: SUSANNAH Docusate Sodium (Docusate Sodium 100 Mg Capsule) 100 mg PO BID SUDARSHAN Last Admin: 05/25/23 20:15 Dose: Not Given Documented By: ELLA Non-Admin Reason: frequent BM Nutrition (Parenteral) (Parenteral Nutrition) 1,080 mls @ 45 mls/hr IV .Q24H SUDARSHAN; Protocol Stop: 05/26/23 20:59 Last Admin: 05/25/23 22:08 Dose: 45 mls/hr Documented By: ELLA Ceftriaxone Sodium 1 gm/ (Sodium Chloride) 50 mls @ 100 mls/hr IV Q24H SUDARSHAN Last Infusion: 05/25/23 17:39 Dose: Infused Documented By: KIRA Doxycycline Hyclate 100 mg/ (Sodium Chloride) 250 mls @ 166.67 mls/hr IV Q12H SUDARSHAN Last Infusion: 05/26/23 07:50 Dose: Infused Documented By: SONAM Melatonin (Melatonin 3 Mg Tablet) 6 mg PO BEDTIME PRN PRN Reason: Insomnia Last Admin: 05/19/23 03:23 Dose: 6 mg Documented By: GUZMAN Morphine Sulfate (Morphine Sulfate 2 Mg/Ml Cartridge) 1 mg IVPUSH Q4H PRN; Protocol PRN Reason: Pain, Moderate(Pain Scale 4-6) Last Admin: 05/26/23 05:11 Dose: 1 mg Documented By: ELLA Multivitamins/Vitamin C (Multivitamin Tablet) 1 tab PO DAILY [facility] Last Admin: 05/25/23 09:40 Dose: Not Given Documented By: KIRA Non-Admin Reason: Physician Approved Ondansetron HCl (Ondansetron Hcl 4 Mg/2 Ml Vial) 4 mg IVPUSH Q8H PRN PRN Reason: Nausea and Vomiting Last Admin: 05/20/23 02:58 Dose: 4 mg Documented By: GUZMAN Pharmacy Consult (Consult Rx Parenteral Nutrition Ordering) 1 each MISCELLANE DAILY PRN PRN Reason: Consult order Polyethylene Glycol (Polyethylene Glycol 3350 17 Gm Powd.Pack) 17 gm PO DAILY [facility] Last Admin: 05/25/23 09:40 Dose: Not Given Documented By: KIRA Non-Admin Reason: Normal bowel movements Senna (Sennosides 8.6 Mg Tablet) 17.2 mg PO BEDTIME [facility] Last Admin: 05/25/23 20:15 Dose: Not Given Documented By: ELLA Non-Admin Reason: Frequent BM Sodium Chloride (0.9 % Sodium Chloride Flush 3 Ml Syringe) 3 ml IVFLUSH QSHIFT [facility] Last Admin: 05/25/23 22:18 Dose: 3 ml Documented By: ELLA Sodium Chloride (0.9 % Sodium Chloride Flush 10 Ml Syringe) 5 ml IVFLUSH TID [facility] Last Admin: 05/25/23 22:14 Dose: 5 ml Documented By: ELLA Tamsulosin HCl (Tamsulosin Hcl 0.4 Mg Capsule) 0.4 mg PO BEDTIME [facility] Last Admin: 05/25/23 22:16 Dose: 0.4 mg Documented By: ELLA Trolamine Salicylate (Trolamine Salicylate 10 % Cream 85 Gm Tube) 1 appl TOPICAL TID PRN; Protocol PRN Reason: Pain, Mild (Pain Scale 1-3) Last Admin: 05/26/23 05:12 Dose: 1 appl Documented By: ELLA Warfarin Sodium (Warfarin Sodium 5 Mg Tablet) 5 mg PO DAILY@1800 [facility] Last Admin: 05/25/23 17:34 Dose: 5 mg Documented By: KIRA Labs 05/26/23 05:44 05/26/23 05:44 Labs: Laboratory Results - last 24 hr 05/25/23 05/26/23 16:28 05:44 MCV 90.9 MCH 30.4 MCHC 33.4 RDW 13.2 Plt Count 199 MPV 11.0 Absolute Nucleated RBC 0.000 Nucleated RBC % (auto) 0.0 Hold Purple Top SEE NOTE PT 17.1 H INR 1.4 H Anion Gap 15 Estim Creat Clear Calc 42.7 Estimated GFR 54 Random Glucose 120 H Uric Acid 8.1 H Calcium 8.2 L Phosphorus 2.6 L Magnesium 2.2 Albumin 2.9 L Hold Yellow Top See Note Microbiology Microbiology Results: Microbiology 05/25/23 16:28 Blood Culture - Preliminary Blood - Venous Assessment and Plan (1) SBO (small bowel obstruction): Status: Acute (2) Right rib fracture: Status: Acute (3) Abdominal wall contusion: Status: Acute Plan 82 year old pleasant white male with history of PAF, HTN, HLD, CHF, SHALONDA, ED, Prostate cancer, Bladder cancer and recent mechanical fall with resultant 9th & 10th rib fractures and lung contusion here with anemia and hematoma, hospital course complicated by SBO s/p NGT placement improving with conservative management and now with possible pneumonia possible pneumonia CXR 05/24 showing likely atelectasis but can't rule out early infiltrate given increase in white count, will start antibiotics to cover for possible pneumonia no sepsis blood cultures pending continue IS SBO PICC placed 05/24 for TPN, will continue until tolerating solids NGT removed 05/24, tolerating clear liquids general surgery following encourage oob ambulating, IS right arm pain reports r/t previous fall xrays negative for fracture ortho recommended outpatient follow up OT evaluation pending Hypernatremia resolved paraoxysmal atrial fibrillation INitially with Supratherapeutic INR and coumadin was held due to hematoma INR 1.4 (target 2-3) H/H stable continue warfarin 5 mg daily follow INR daily JB on CKD3. Resolved with IVF possible component of pre-renal azotemia given soft BP continue to hold Lisinopril Right lower quadrant abdominal pain due to fall and hematoma H/H has remained stable PRN analgesics stercoral colitis continue bowel regimen when SBO resolves s/p fleets enema and having bowel movements - follow diarrhea if continues consider checking cdif Frequent falls pt says he strained his shoulder carrying something heavy which caused him to slip the first time, then he slipped in his socks on the hardwood floor seen by PT - rec home with PT services when medically ready Multiple rib fractures right 9, 10 and 11 ribs (non-displaced) breathing well without splinting continue pain control, IS HTN bp under adequate control at this time hold lisinopril, norvasc follow bp closely on lasix for leg edema per patient overall in positive fluid balance given one dose of IV lasix home dose of lasix (80) remains on hold - follow fluid status closely SHALONDA has not yet received CPAP machine DVT: mechanical devices, resume coumadin CODE STATUS: Full code attending Dr. Yo dispo: home vs str when medically ready. will need PICC line removed prior to discharge Ongoing inpatient stay for management of bowel obstruction, TPN, closely monitoring of INR/blood pressure Quality Stroke Does the patient have a stroke diagnosis?: No VTE Prior VTE?: No VTE Risk Level:: Medical - moderate - high VTE Device Contraindication: N/A - Device Ordered VTE Drug Contraindication: Treatment Not Indicated
[2023-05-26] MEDS: 0.9 % Sodium Chloride Flush 3 ML SYRINGE IVFLUSH ×3 (10:34→18:34)
[2023-05-26] MEDS: 0.9 % Sodium Chloride Flush 10 ML SYRINGE 5 ML IVFLUSH ×3 (10:34→20:40)
[2023-05-26 15:27] VITALS: BP 130/64; PULSE 83; RESP 20; TEMP 36.9; O2SAT 92
--- NOTE | 2023-05-26 15:33 | PC.NURSE ---
Patient reporting pain in bottom of both feet and right ankle. Right ankle and leg more edematous than left. Limited ROM right ankle. Pain with manipulation. Difficulty bearing weight, but OOB with Kira Steady. Venous doppler done yesterday negative. +PP. skin dry and intact. Dr. Dove in to assess. Order for ankle xray and change in pain medication. SALOME wrap applied to right ankle.
[2023-05-26] MEDS: cefTRIAXone sodium 1 GM in 0.9 % Sodium Chloride 50 ML IV (17:48)
[2023-05-26] MEDS: Warfarin Sodium 5 MG TABLET PO (17:49)
[2023-05-26] MEDS: oxyCODONE HCl Immed Release 5 MG TABLET PO (18:42)
[2023-05-26 19:36] VITALS: BP 116/58; PULSE 74; RESP 18; TEMP 37.3; O2SAT 94
[2023-05-26] MEDS: Parenteral Nutrition 1,560 ML 65 ML IV (20:28)
[2023-05-26] MEDS: Docusate Sodium 100 MG CAPSULE PO (20:40)
[2023-05-26] MEDS: Tamsulosin HCL 0.4 MG CAPSULE PO (20:40)
[2023-05-27 03:18] VITALS: BP 113/67; PULSE 72; RESP 16; TEMP 37.3; O2SAT 93
[2023-05-27] MEDS: Acetaminophen 325 MG TABLET 650 MG PO ×2 (03:34→20:47)
[2023-05-27] MEDS: Doxycycline Hyclate 100 MG in 0.9 % Sodium Chloride 250 ML 166.67 MG IV ×2 (05:44→16:48)
[2023-05-27 07:02] LABS: MANUAL DIFF FLAG NO
[2023-05-27 07:08] LABS: Basophils Absolute Auto 0.1 X10*3/uL (0.0-0.2); Basophils Percent Auto 0.3 % (0-2); Lymphocytes Percent Auto 8.2 % (20-40); PLT CLUMP 1; Red Cell Distribution Width 13.2 % (11.0-16.0); SCAN SMEAR FLAG 1
[2023-05-27 07:10] LABS: Hematocrit 29.9 % (42.0-52.0); Hemoglobin 9.8 g/dl (14.0-18.0); Imm Gran Abs Auto 0.35 X10*3/uL (0.00-0.03); Imm Gran Pct Auto 1.9 % (0.0-0.4); Lymphocytes Absolute Auto 1.5 X10*3/uL (1.2-4.9); Mean Corpuscular HGB Conc 32.8 g/dl (31.0-36.0); Mean Corpuscular Hemoglobin 29.6 pg (27.0-33.0); Mean Corpuscular Volume 90.3 fL (80.0-98.0); Mean Platelet Volume 11.1 fL (9.4-12.4); Monocytes Absolute Auto 1.5 X10*3/uL (0.1-1.2); Monocytes Percent Auto 8.2 % (2-11); Neutrophils Absolute Auto 14.7 x10*3/uL (2.0-8.3); Neutrophils Percent Auto 81.4 % (45-73); Red Blood Count 3.31 X10*6/uL (4.60-5.80)
[2023-05-27 07:12] LABS: Platelet Count 138 X10*3/uL (160-400); White Blood Count 18.1 X10*3/uL (4.8-10.8)
[2023-05-27 07:15] LABS: INTERNATIONAL NORM RATIO 1.5 (0.9-1.1); Prothrombin Time 18.5 SEC (11.1-13.3)
[2023-05-27 07:20] VITALS: BP 106/55; PULSE 71; RESP 18; TEMP 36.8; O2SAT 95
[2023-05-27 07:27] LABS: Anion Gap 13 (12-20); Blood Urea Nitrogen 33 mg/dL (9-16); Calcium 7.9 mg/dL (8.4-10.2); Carbon Dioxide 23 mmol/L (22-29); Chloride 101 mmol/L (96-108); Creatinine Clr Calc Pharmacy 49.8; Estimated Glomerular Filt Rate > 60; Glucose Random 130 mg/dL (60-115); Magnesium 2.2 mg/dL (1.6-2.6); Phosphorus 3.4 mg/dL (2.7-4.5); Potassium 3.6 mmol/L (3.3-5.1); Sodium 133 mmol/L (135-145)
[2023-05-27] MEDS: Furosemide 40 MG TABLET PO (08:09)
[2023-05-27] MEDS: 0.9 % Sodium Chloride Flush 10 ML SYRINGE 5 ML IVFLUSH ×3 (08:10→22:08)
[2023-05-27] MEDS: 0.9 % Sodium Chloride Flush 3 ML SYRINGE IVFLUSH ×3 (08:10→23:48)
[2023-05-27] MEDS: Docusate Sodium 100 MG CAPSULE PO ×2 (08:10→20:43)
[2023-05-27] MEDS: Multivitamin TABLET 1 TAB PO (08:10)
[2023-05-27 08:38] LABS: Immature Retic Fraction 15.1 % (2.3-13.4); Retic HGB Equivalent 27.6 pg (30.0-35.0); Reticulocyte Percent 1.2 % (0.5-1.8); Reticulocytes Absolute 0.038 X10*6/uL (0.026-0.095)
[2023-05-27 08:47] LABS: Iron 14 mcg/dL (45-160); Lactate Dehydrogenase 347 U/L (118-273); Percent Iron Saturation 13 % (15-50); Total Iron Binding Capacity 109 mcg/dL (228-428); Unsaturated Iron Binding 95 ug/dL
[2023-05-27 09:19] LABS: Ferritin 616 ng/mL (20-250)
[2023-05-27 09:23] LABS: Procalcitonin 1.68 ng/mL
[2023-05-27 11:10] LABS: OBS Int Ctl Valid YES; OBS1 POSITIVE (NEGATIVE)
--- NOTE | 2023-05-27 11:55 | HO.PM.IMPN ---
Subjective Subjective Date of Service: 05/27/23 Interval History: tolerating full liquids, passing gas, no diarrhea minimal cough Review of Systems Review of Systems: Yes all other systems are reviewed and are negative Physical Exam Vital Signs: Vital Signs: Last Vital Signs Temp 98.3 F 05/27/23 07:20 Pulse 71 05/27/23 07:20 Resp 18 05/27/23 07:20 BP 106/55 L 05/27/23 07:20 Pulse Ox 95 05/27/23 07:20 O2 Del Method Room Air 05/27/23 07:20 O2 Flow Rate 1 05/18/23 07:16 BMI result Body Mass Index 32.4 Gen: in no acute distress HEENT: sclera anicteric, moist mucus membranes Neck: supple Lungs: clear to auscultation bilaterally Heart: regular rate and rhythm, no murmurs Abd: soft, non-tender, non-distended, normal bowel sounds x4 quad Ext: no edema, RUE PICC Skin: warm/well-perfused Neuro: alert and oriented x3, no focal findings Psych: appropriate affect Objective Data Active Medications Acetaminophen (Acetaminophen 325 Mg Tablet) 650 mg PO Q6H PRN PRN Reason: Pain, Mild (Pain Scale 1-3) Last Admin: 05/27/23 03:34 Dose: 650 mg Documented By: CELSO Al Hydroxide/Mg Hydroxide (Magnesium Hydrox/Alum Hydrox 30 Ml Oral.Susp) 30 ml PO Q4H PRN PRN Reason: Heartburn/Nausea Last Admin: 05/20/23 08:41 Dose: 30 ml Documented By: SUSANNAH Docusate Sodium (Docusate Sodium 100 Mg Capsule) 100 mg PO BID [facility] Last Admin: 05/27/23 08:10 Dose: 100 mg Documented By: SONAM Furosemide (Furosemide 40 Mg Tablet) 40 mg PO DAILY [facility]; Protocol Last Admin: 05/27/23 08:09 Dose: 40 mg Documented By: SONAM Ceftriaxone Sodium 1 gm/ (Sodium Chloride) 50 mls @ 100 mls/hr IV Q24H [facility] Last Infusion: 05/26/23 18:22 Dose: Infused Documented By: ANGELY Doxycycline Hyclate 100 mg/ (Sodium Chloride) 250 mls @ 166.67 mls/hr IV Q12H [facility] Last Infusion: 05/27/23 07:15 Dose: Infused Documented By: SONAM Nutrition (Parenteral) (Parenteral Nutrition) 1,560 mls @ 65 mls/hr IV .Q24H [facility]; Protocol Stop: 05/27/23 20:59 Last Admin: 05/26/23 20:28 Dose: 65 mls/hr Documented By: GENESIS Melatonin (Melatonin 3 Mg Tablet) 6 mg PO BEDTIME PRN PRN Reason: Insomnia Last Admin: 05/19/23 03:23 Dose: 6 mg Documented By: GUZMAN Morphine Sulfate (Morphine Sulfate 2 Mg/Ml Cartridge) 1 mg IVPUSH Q4H PRN; Protocol PRN Reason: Pain, Moderate(Pain Scale 4-6) Last Admin: 05/26/23 12:07 Dose: 1 mg Documented By: SONAM Multivitamins/Vitamin C (Multivitamin Tablet) 1 tab PO DAILY [facility] Last Admin: 05/27/23 08:10 Dose: 1 tab Documented By: SONAM Ondansetron HCl (Ondansetron Hcl 4 Mg/2 Ml Vial) 4 mg IVPUSH Q8H PRN PRN Reason: Nausea and Vomiting Last Admin: 05/20/23 02:58 Dose: 4 mg Documented By: GUZMAN Oxycodone HCl (Oxycodone Hcl Immed Release 5 Mg Tablet) 5 mg PO Q6H PRN PRN Reason: Pain, Severe (Pain Scale 7-10) Last Admin: 05/26/23 18:42 Dose: 5 mg Documented By: ANGELY Polyethylene Glycol (Polyethylene Glycol 3350 17 Gm Powd.Pack) 17 gm PO DAILY [facility] Last Admin: 05/25/23 09:40 Dose: Not Given Documented By: KIRA Non-Admin Reason: Normal bowel movements Senna (Sennosides 8.6 Mg Tablet) 17.2 mg PO BEDTIME [facility] Last Admin: 05/25/23 20:15 Dose: Not Given Documented By: ELLA Non-Admin Reason: Frequent BM Sodium Chloride (0.9 % Sodium Chloride Flush 3 Ml Syringe) 3 ml IVFLUSH QSHIFT [facility] Last Admin: 05/27/23 08:10 Dose: 3 ml Documented By: SONAM Sodium Chloride (0.9 % Sodium Chloride Flush 10 Ml Syringe) 5 ml IVFLUSH TID [facility] Last Admin: 05/27/23 08:10 Dose: 5 ml Documented By: SONAM Tamsulosin HCl (Tamsulosin Hcl 0.4 Mg Capsule) 0.4 mg PO BEDTIME [facility] Last Admin: 05/26/23 20:40 Dose: 0.4 mg Documented By: GENESIS Trolamine Salicylate (Trolamine Salicylate 10 % Cream 85 Gm Tube) 1 appl TOPICAL TID PRN; Protocol PRN Reason: Pain, Mild (Pain Scale 1-3) Last Admin: 05/26/23 05:12 Dose: 1 appl Documented By: ELLA Warfarin Sodium (Warfarin Sodium 5 Mg Tablet) 5 mg PO DAILY@1800 [facility] Last Admin: 05/26/23 17:49 Dose: 5 mg Documented By: ASTER Labs 05/27/23 06:49 05/27/23 06:48 Labs: Laboratory Results - last 24 hr 05/27/23 05/27/23 05/27/23 06:48 06:49 10:51 MCV 90.3 MCH 29.6 MCHC 32.8 RDW 13.2 Plt Count 138 L D MPV 11.1 Immature Gran % (Auto) 1.9 H Neut % (Auto) 81.4 H Lymph % (Auto) 8.2 L [place] % (Auto) 8.2 Eos % (Auto) 0.0 Baso % (Auto) 0.3 Lymph # (Auto) 1.5 [place] # (Auto) 1.5 H Eos # (Auto) 0.0 Baso # (Auto) 0.1 Abs Immat Gran (auto) 0.35 H Absolute Neuts (auto) 14.7 H Absolute Nucleated RBC 0.000 Nucleated RBC % (auto) 0.0 Absolute Retic 0.038 Percent Retic 1.2 Immature Retic Fraction 15.1 H Retic Hgb Equivalent 27.6 L PT 18.5 H INR 1.5 H Anion Gap 13 Estim Creat Clear Calc 49.8 Estimated GFR > 60 Random Glucose 130 H Calcium 7.9 L Phosphorus 3.4 Magnesium 2.2 Iron 14 L TIBC 109 L % Saturation 13 L Unsat Iron Binding 95 Ferritin 616 H Lactate Dehydrogenase 347 H Procalcitonin 1.68 Stool Occult Blood POSITIVE Microbiology Microbiology Results: Microbiology 05/25/23 16:28 Blood Culture - Preliminary Blood - Venous No growth after 24 hours. 05/25/23 16:28 Blood Culture - Preliminary Blood - Venous No growth after 24 hours. Assessment and Plan (1) SBO (small bowel obstruction): Status: Acute (2) Right rib fracture: Status: Acute (3) Abdominal wall contusion: Status: Acute Plan d11 82yo M with pAF, HTN, HLD, CHF, SHALONDA, hx prostate + bladder CA admitted with 9th + 10th + 11th rib fractures/lung contusion after mechanical fall hospital course complicated by SBO + pneumonia PNA - started ceftriaxone + doxycycline 05/25/23 given early infiltrate + leukocytosis; PCT elevated; blood cultures negative; not hypoxic SBO - NGT removed 05/24/23 - advance to regular diet and monitor for tolerance - PICC placed 05/24 for TPN, will d/c TPN today R arm pain - due to fall; no fracture, outpt f/u per Orthopedics, OT eval pending RLQ pain - due to fall; H+H stable hyperNa - resolved paroxysmal AF - initially INR supratherapeutic and warfarin held due to hematoma - INR today 1.5, continue to monitor on warfarin 5 mg daily, goal 2-3 prerenal JB/CKD3 - resolved with IV fluids and holding lisinopril stercoral colitis - resume bowel regimen normocytic anemia - FOBT+ but likely due to stercoral colitis; continue to monitor H+H - start iron repletion upon discharge frequent falls - pt strained shoulder carring something heavy then slipped on hardwood floor while wearing socks - per PT, home with PT multiple rib fractures - pain control, IS HTN - BP controlled despite holding lisinopril + amlodipine peripheral edema - on furosemide for leg edema; given 1 dose IV for positive fluid balance SHALONDA - awaiting home CPAP machine VTE ppx - warfarin dispo - anticipate home with VNA In my clinical judgment, the patient requires continued inpatient hospitalization for the following reasons: SBO resolution Total time managing care of this patient today: 40 minutes. Quality Stroke Does the patient have a stroke diagnosis?: No VTE Prior VTE?: No VTE Risk Level:: Medical - moderate - high VTE Device Contraindication: N/A - Device Ordered VTE Drug Contraindication: Treatment Not Indicated
[2023-05-27 12:24] LABS: CDiff Gene PCR NEGATIVE (Negative)
[2023-05-27 15:31] VITALS: BP 120/60; PULSE 74; RESP 16; TEMP 37.4; O2SAT 95
[2023-05-27] MEDS: cefTRIAXone sodium 1 GM in 0.9 % Sodium Chloride 50 ML IV (16:15)
--- NOTE | 2023-05-27 16:35 | PC.NURSE ---
OOB to recliner with 2 assist and a walker ,patient very weak but tolerated it fairly well
[2023-05-27] MEDS: oxyCODONE HCl Immed Release 5 MG TABLET PO (17:48)
[2023-05-27] MEDS: Warfarin Sodium 5 MG TABLET PO (17:50)
[2023-05-27 19:09] VITALS: BP 124/60; PULSE 77; RESP 16; TEMP 36.5; O2SAT 97
[2023-05-27] MEDS: Tamsulosin HCL 0.4 MG CAPSULE PO (20:43)
[2023-05-28] VITALS: BP 115/62; PULSE 70; RESP 18; TEMP 36.6; O2SAT 94
[2023-05-28] MEDS: Doxycycline Hyclate 100 MG in 0.9 % Sodium Chloride 250 ML 166.67 MG IV (05:56)
[2023-05-28 06:55] LABS: Hematocrit 30.2 % (42.0-52.0); Hemoglobin 9.8 g/dl (14.0-18.0); Mean Corpuscular HGB Conc 32.5 g/dl (31.0-36.0); Mean Corpuscular Hemoglobin 29.2 pg (27.0-33.0); Mean Corpuscular Volume 89.9 fL (80.0-98.0); Mean Platelet Volume 11.5 fL (9.4-12.4); Platelet Count 142 X10*3/uL (160-400); Red Blood Count 3.36 X10*6/uL (4.60-5.80); Red Cell Distribution Width 13.2 % (11.0-16.0); White Blood Count 15.8 X10*3/uL (4.8-10.8)
[2023-05-28 06:58] LABS: Anion Gap 12 (12-20); Blood Urea Nitrogen 33 mg/dL (9-16); Calcium 8.2 mg/dL (8.4-10.2); Carbon Dioxide 24 mmol/L (22-29); Chloride 102 mmol/L (96-108); Creatinine Clr Calc Pharmacy 52.7; Estimated Glomerular Filt Rate > 60; Glucose Random 89 mg/dL (60-115); Magnesium 2.2 mg/dL (1.6-2.6); Phosphorus 3.4 mg/dL (2.7-4.5); Potassium 3.9 mmol/L (3.3-5.1); Sodium 134 mmol/L (135-145)
[2023-05-28 07:06] LABS: INTERNATIONAL NORM RATIO 1.4 (0.9-1.1); Prothrombin Time 16.6 SEC (11.1-13.3)
[2023-05-28 07:34] VITALS: BP 117/56; PULSE 71; RESP 16; TEMP 36.1; O2SAT 94
[2023-05-28 07:36] LABS: Folate 10.3 ng/mL (> or = 4.0); Vitamin B12 890 pg/mL (200-900)
[2023-05-28] MEDS: 0.9 % Sodium Chloride Flush 3 ML SYRINGE IVFLUSH (09:05)
[2023-05-28] MEDS: Multivitamin TABLET 1 TAB PO (09:05)
[2023-05-28] MEDS: Furosemide 40 MG TABLET PO (09:05)
--- NOTE | 2023-05-28 11:37 | PM.DS ---
DS: Providers Provider Date of Service: 05/28/23 Date of admission: 05/17/23 06:13 Primary care physician: Minine Lowe MD Consults: 05/20/23 12:20 Consult to General Surgery Routine Consulting Provider: [facility] General Surgeons Reason for consultation: SBO 05/25/23 11:36 Consult to Orthopedics Routine Consulting Provider: [facility] Orthopedic Surgeons Reason for consultation: right shoulder pain, limited ROM Has provider been notified: No DS: Diagnosis Discharge Diagnosis (1) SBO (small bowel obstruction): Status: Acute (2) Right rib fracture: Status: Acute (3) Abdominal wall contusion: Status: Acute DS: Summary Hospital Course Hospital Course: Patient is a 82 year old pleasant white male with history of PAF, HTN, HLD, CHF, SHALONDA, ED, Prostate cancer, Bladder cancer and recent mechanical fall with resultant 9th & 10th rib fractures and lung contusion for which he was seen in the ED on 05/13 now returns to the Ed complaining of worsening RLQ abdominal pain for last several days. He additionally suffered another fall last night after he got entangled in his socks and reportedly hit his head and now reports rpain in the right side of the abdomen. A CT chest done tonight shows fractures of the posterior lateral right 9th, 10th and 11th ribs with minimal right pleural effusion and associated right lung base consolidation. He is also noted to have retained stool and concerns for right stercoral colitis. Lab work done was notable for elevated INR of 4.6 and acute renal failure with BUN of 70 and creatinine of 2.18 from 37 and 1.19 (05/13/23) respectively. He reports not taking his diuretics and Coumadin since he left the ER (highly doubt it). [age] treated for pneumonia, ileus, small-bowel obstruction, supratherapeutic INR. Initially patient was admitted for a rib fractures and hematoma due to supratherapeutic INR. His course was complicated by ileus and then subsequently small-bowel obstruction. NG tube had been placed and initially had drained significant amount of fluid, NGT for 3 days. clamped a few times in between, Started TPN 05/24/23-05/27/23. He has been doing really well, Good appetite, moving his bowels, ambulating in room and hallway. He also had JB on CKD which resolved after holding lisinopril and Lasix and his creatinine improved back to baseline. The hematoma to abd and thigh started resolving on their own, his warfarin was held for several days and INR went from 5.9-1.4 and he received 2 doses of vitamin k while his INR was over 5 because at that time he had an SBO and there may have been a possibility of surgical intervention. Fortunately he did not require surgical intervention and SBO resolved with NGT. Plan os for dc home with services multiple rib fractures good pain control during hospital stay, may continue to use IS at home HTN BP controlled despite holding lisinopril + amlodipine, both stopped on discharge SHALONDA cpap Time Attestation Discharge coordination time: Greater than 30 minutes Quality: Safe Use of Opioids Does Pt have an Active Cancer Diagnosis on the Problem List?: No Quality: Stroke Does the patient have a stroke diagnosis?: No Physical Exam Vital Signs: Vital Signs: Last Vital Signs Temp 97.0 F 05/28/23 07:34 Pulse 71 05/28/23 07:34 Resp 16 05/28/23 07:34 BP 117/56 L 05/28/23 07:34 Pulse Ox 94 05/28/23 07:34 O2 Del Method Room Air 05/28/23 07:34 O2 Flow Rate 1 05/18/23 07:16 BMI result Body Mass Index 32.4 Appearing in no acute distress head is normocephalic atraumatic eyes pupils are PERRLA sclera is anicteric mouth throat mucous membranes are intact and moist neck is supple no lymphadenopathy, no JVD noted lung sounds are clear to auscultation heart regular rate rhythm, clear S1, S2 positive bowel sounds, abdomen is soft, nontender neuro patient is alert x3, no focal deficits DS: Data Data Completed and Pending Labs on day of discharge: Laboratory Results - last 24 hr 05/27/23 05/28/23 10:51 06:12 WBC 15.8 H RBC 3.36 L Hgb 9.8 L Hct 30.2 L MCV 89.9 MCH 29.2 MCHC 32.5 RDW 13.2 Plt Count 142 L MPV 11.5 Absolute Nucleated RBC 0.000 Nucleated RBC % (auto) 0.0 PT 16.6 H INR 1.4 H Sodium 134 L Potassium 3.9 Chloride 102 Carbon Dioxide 24 Anion Gap 12 BUN 33 H Creatinine 1.03 Estim Creat Clear Calc 52.7 Estimated GFR > 60 Random Glucose 89 Calcium 8.2 L Phosphorus 3.4 Magnesium 2.2 Vitamin B12 890 Folate 10.3 C. difficile Tox B Gene NEGATIVE Preliminary micro results at discharge 05/25/23 16:28 Blood Culture - Preliminary Blood - Venous No growth after 48 hours. 05/25/23 16:28 Blood Culture - Preliminary Blood - Venous No growth after 48 hours. Discharge Plan Discharge Anticipated Discharge Date/Time: 05/28/23 11:31 Patient Disposition: Home Health Service Discharge Diagnosis: Small-bowel obstruction Pneumonia Ileus JB on CKD stage 3 Stercoral colitis Normocytic anemia Frequent falls Referrals: [facility] [Outside] - 3-5 Days (HOME CARE SERVICES FOR SN AND PT- A NURSE WILL CALL YOU TO SET UP FIRST VISIT) Minnie Lowe MD [Primary Care Provider] - 1 Week Discharge Medications: New cefuroxime axetil 500 mg tablet 500 mg PO BID Qty: 6 0RF doxycycline hyclate 100 mg tablet 100 mg PO BID Qty: 6 0RF Continued calcium carbonate-vitamin D3 600 mg-5 mcg (200 unit) Tablet 1 tab PO DAILY cholecalciferol (vitamin D3) 25 mcg (1,000 unit) Tablet 25 mcg PO DAILY warfarin 5 mg tablet 5 mg PO DAILY acetaminophen [Tylenol Arthritis Pain] 650 mg tablet extended release 650 mg PO DAILY multivitamin Tablet 1 tab PO DAILY tamsulosin 0.4 mg capsule 0.4 mg PO BEDTIME 90 Days Qty: 90 3RF furosemide [Lasix] 40 mg tablet 80 mg PO DAILY 90 Days Qty: 180 3RF Discontinued amlodipine 2.5 mg tablet 2.5 mg PO BEDTIME lisinopril 40 mg tablet 40 mg PO BEDTIME Discharge Orders: Discharge Order (Routine); Ordered 05/28/23 Ordered By: Raeann Cristobal Diet: Advance to usual diet Activity on Discharge: As tolerated Stand Alone Forms: Patient Portal Discharge page Care Plan Goals: Complete course of antibiotic for pneumonia your blood pressure medications (lisinoprol, amlodipine) were stopped due to low blood pressure. May discuss with your primary care provider to restart of blood pressure allows. Health Concerns: Small-bowel obstruction Pneumonia Ileus JB on CKD stage 3 Stercoral colitis Normocytic anemia Frequent falls Plan of Treatment: Follow-up with primary care provider as needed Take all medications as prescribed Assessment: See discharge summary
--- NOTE | 2023-05-28 11:44 | MHC.CM.PN ---
Addendum entered by Gabby Nash 05/28/23 14:19: DP: PT HAS FAILED O.T. EVAL, REC. ACUTE REHAB. PT AND ARE AGREEABLE AND ACCEPT [facility] BED. BLS TRANSPORT BOOKED FOR 3: 30 PM VIA [facility]. [email or web address] AWARE. IMM ADDRESSED Original Note: DP: PT HAS BEEN MEDICALLY CLEARED FOR DC HOME WITH NEW [facility] SERVICES . FAMILY WILL TRANSPORT. [facility] NOTIFIED OF TODAY'S DC.
--- NOTE | 2023-05-28 11:54 | P.F2F_ITS ---
Service Date Service Date: 05/28/23 Encounter Date of encounter: 05/28/23 Reasons for Services Signs and symptoms assessed: SBO Ileus pneumonia JB Reason for [facility]: CV/CP assess and/or care Reason for occupational therapy: home safety and mobility Homebound: Leaving the home is medically contraindicated at this time without the asist of a device and/or another person due th the listed conditions above and below. Reason homebound: unsteady gait / fall risk Certification: Based on the above findings, I certify that this patient is confined to the home and needs intermittent [facility] care, physical therapy and/or speech therapy, or continues to need occupational therapy. The patient is under my care, and I have initiated the establishment of the plan of care. The patient will be followed by a physician who will periodically review the plan of care. Time Spent With Patient Time: Total time managing care of this patient today ____ minutes.
--- NOTE | 2023-05-28 12:06 | MHC.CLN ---
F/U DIET ADVANCED TO REGULAR ON 05/27. TPN DISCONTINUED AFTER 05/27 BAG ADMINISTERED. PATIENT SCHEDULED FOR DISCHARGE TODAY.
--- NOTE | 2023-05-30 14:34 | P.CDIM_ITS ---
PROVIDER RESPONSE TEXT: To clarify, the appropriate diagnosis supported by the clinical indicators: Moderate QUERY TEXT: PHYSICIAN'S DOCUMENTATION REQUEST Date of Query: 05/23/2023 12:18 PM EST Patient Name: Jung Funes Admit Date: 05/17/2023 Dear Omid Smart, A review of the medical record indicates additional documentation may be needed. Please review below and update the documentation accordingly. Documentation General Surgery Progress Note 05/23/23 includes the diagnosis of malnutrition. Additional clinical indicators from the record include: HT: 5'4 WT: 85.729 kg BMI: 32.4 If possible, please provide additional specificity regarding the severity of the malnutrition using t he above information: Mild Moderate Severe Other (explain) Clinically unable to determine (explain) Thank you, Cristine Rangel RN Use of terms such as suspected, likely, concern for, or probable (associated with a specific diagnosi s that is being evaluated, monitored, or treated as if it exists) are acceptable and can be coded in the inpatient se tting, when documented at the time of discharge. Please use your independent medical judgment in providing your response. THIS QUERY IS PART OF THE PERMANENT MEDICAL RECORD
== END 2023-05-28 16:07 | DRG 813 ==
LOC: HO.ED 05-17 01:55 → HO.EDOVER 05-17 06:20 → HO.S3 05-17 07:30
PROVIDERS: Family Medicine; Physician Assistant Medical; Surgery; Admitting Provider Internal Medicine; Emergency Provider Internal Medicine; PCP Internal Medicine; Visit Provider Nurse Practitioner Acute Care
DX: D68.32 Hemorrhagic disorder due to extrinsic circulating anticoagulants (principal); J18.9 Pneumonia, unspecified organism; N17.9 Acute kidney failure, unspecified; E87.0 Hyperosmolality and hypernatremia; E87.1 Hypo-osmolality and hyponatremia; S22.41XA Multiple fractures of ribs, right side, initial encounter for closed fracture; I13.0 Hypertensive heart and chronic kidney disease with heart failure and stage 1 through stage 4 chronic kidney disease, or unspecified chronic kidney disease; K56.7 Ileus, unspecified; J98.11 Atelectasis; E44.0 Moderate protein-calorie malnutrition; K56.609 Unspecified intestinal obstruction, unspecified as to partial versus complete obstruction; I07.1 Rheumatic tricuspid insufficiency; S70.12XA Contusion of left thigh, initial encounter; S30.1XXA Contusion of abdominal wall, initial encounter; R79.1 Abnormal coagulation profile; K52.89 Other specified noninfective gastroenteritis and colitis; Z68.32 Body mass index [BMI] 32.0-32.9, adult; T45.515A Adverse effect of anticoagulants, initial encounter; I50.812 Chronic right heart failure; I48.0 Paroxysmal atrial fibrillation; W19.XXXA Unspecified fall, initial encounter; N18.30 Chronic kidney disease, stage 3 unspecified; R29.6 Repeated falls; Z95.0 Presence of cardiac pacemaker; Z79.01 Long term (current) use of anticoagulants; Z79.899 Other long term (current) drug therapy
CPT/HCPCS: 36415; 36573; 70450; 71045; 71260; 72125; 73030; 73060; 73600; 74176; 74177; 80048; 81001; 82040; 82272; 82550; 82607; 82728; 82746; 83540; 83605; 83615; 83735; 84100; 84134; 84145; 84295; 84478; 84550; 85025; 85027; 85045; 85610; 87040; 87086; 87493; 93005; 93971; 97162; 97167; 97530; 99285; C1751; J0696; J1940; J2270; J2405; J3430; J7120; Q9967

== ENCOUNTER 2023-05-17 06:13 | Outpatient (BNV) | payer MEDICARE, OTHER, SELFPAY | END 2023-05-17 07:26 | PROVIDERS: Admitting Provider Internal Medicine; Emergency Provider Internal Medicine; PCP Internal Medicine; Visit Provider Internal Medicine | DX: R07.89 Other chest pain (principal); R94.31 Abnormal electrocardiogram [ECG] [EKG] | CPT/HCPCS: 93010 ==

== ENCOUNTER → 2023-05-17 06:13 | Outpatient (BNV) | payer MEDICARE, OTHER, SELFPAY | PROVIDERS: Admitting Provider Internal Medicine; Emergency Provider Internal Medicine; Visit Provider Internal Medicine | DX: K56.609 Unspecified intestinal obstruction, unspecified as to partial versus complete obstruction (principal); S22.31XA Fracture of one rib, right side, initial encounter for closed fracture; S30.1XXA Contusion of abdominal wall, initial encounter | CPT/HCPCS: 99223; 99232; 99233; 99239; 99499; G0180 ==

== ENCOUNTER → 2023-05-17 06:13 | Outpatient (BNV) | payer MEDICARE, OTHER, SELFPAY | PROVIDERS: Admitting Provider Internal Medicine; Emergency Provider Internal Medicine; PCP Internal Medicine; Visit Provider Surgery | DX: K56.7 Ileus, unspecified (principal) | CPT/HCPCS: 99222; 99231; 99232 ==

== ENCOUNTER → 2023-06-18 15:30 | Outpatient (BNVA) | payer MEDICARE, OTHER, SELFPAY | PROVIDERS: PCP Internal Medicine; Visit Provider Nurse Practitioner Family | DX: I11.0 Hypertensive heart disease with heart failure (principal); I50.812 Chronic right heart failure; I48.0 Paroxysmal atrial fibrillation; I77.810 Thoracic aortic ectasia; I36.1 Nonrheumatic tricuspid (valve) insufficiency; Z79.01 Long term (current) use of anticoagulants; Z95.0 Presence of cardiac pacemaker | CPT/HCPCS: 99212 ==

== ENCOUNTER 2023-06-18 15:31 | Outpatient (AMB) | payer MEDICARE, OTHER, SELFPAY ==
--- NOTE | 2023-06-18 15:32 | MHC.OFFVIS ---
Intake Vital Signs 06/18/23 15:33 Height 5 ft 4 in Weight 190 lb 7.67 oz BMI 32.7 BP 114/62 Blood Pressure Location Lt brachial Position Sitting Pulse 70 Pulse Source Pulse Oximeter Intake Visit Reasons: FU after cardiac rehab Dining Room Attendant Required: No On Site Wastewater Systems Technician: On Site Wastewater Systems Technician Present Accompanied by: Significant Other Allergies No Known Allergies Allergy (Verified 06/18/23 15:36) Medication List - Last Reconciled 06/18/23 by KATHLEEN AtkinsC acetaminophen ER (Tylenol Arthritis Pain) 650 mg PO DAILY calcium carbonate-vitamin D3 600 mg-5 mcg (200 unit) 1 tab PO DAILY cefuroxime axetil 500 mg PO BID cholecalciferol (vitamin D3) 25 mcg PO DAILY doxycycline hyclate 100 mg PO BID furosemide 20 mg PO DAILY furosemide (Lasix) 40 mg PO DAILY multivitamin 1 tab PO DAILY pantoprazole 40 mg PO BID tamsulosin 0.4 mg PO BEDTIME 90 days warfarin 5 mg PO DAILY HPI FU after cardiac rehab HPI Details Monica since an 82-year-old male with past medical history of hypertension, hyperlipidemia, paroxysmal atrial fibrillation, tricuspid regurgitation, pacemaker, chronic right heart failure who was recently admitted to [facility] after having a mechanical fall pre for developing pneumonia. He was sent to rehab then had GI bleeding and was admitted at [facility] for 2 days. He was then sent back to rehab and was finally discharged to home on 06/15/2023. Today he reports that he is still feeling very weak overall. He has discomfort in his legs and is ambulating with a walker. He will have home physical therapy set up. He denies any chest discomfort at rest or with activity. No shortness of breath, PND, orthopnea. He does have bilateral leg edema which he says looks improved from increased swelling that he had in the recent past. No lightheadedness, presyncope, syncope, recurrent falls. No signs of bleeding. He has follow-up with GI in 10 days. Takes all his medications as directed including Coumadin. is present. [facility] Medical History (Updated 06/18/23 @ 16:50 by AKTHLEEN AtkinsC) Nonrheumatic tricuspid (valve) insufficiency Chronic right heart failure Current use of anticoagulant therapy Anticoagulated on Coumadin Right rib fracture CHF (congestive heart failure) Nocturnal hypoxemia SHALONDA (obstructive sleep apnea) Peripheral edema Annual physical exam Left tennis elbow Essential hypertension PAF (paroxysmal atrial fibrillation) History of hydrocele Nocturia Bladder outlet obstruction Bladder cancer Prostate cancer Hyperlipidemia HTN (hypertension) Normally functioning cardiac pacemaker present Varicose veins of bilateral lower extremities with other complications History of atrial fibrillation Surgical History History of hydrocelectomy Hx of varicose vein stripping Hx of subdural hematoma History of phacoemulsification of cataract of both eyes with intraocular lens implantation Hx of cardiac pacemaker Hx of colonoscopy Hx of parathyroidectomy Hx of cystoscopy Family History Father Cancer Prostate cancer Mother Cancer, Onset Age: 85 Son No problems noted. Daughter No problems noted. Maternal Grandfather No problems noted. Maternal Grandmother No problems noted. Paternal Grandfather No problems noted. Paternal Grandmother No problems noted. Social History Household Members: Spouse Housing: House Are you a primary school child care attendant to a significant other at home: No Do you presently have visiting nurse or other home services: No Alcohol intake: current Alcohol intake frequency: holidays/special occasions only Alcohol type: wine Patient Tobacco Use Status: Never used Tobacco e-Cigarette/Vaping Use: Never Used Advance Directives Date on File: 05/02/21 service: No Current occupational status: retired Cognitive needs: No Hearing needs: No Vision needs: Yes Review of Systems Const All systems reviewed & are unremarkable except as noted in HPI and below Reports fatigue and Reports weakness ENT Denies dizziness Card Denies chest pain, Denies chest pain at rest, Denies chest pain with activity, Denies rapid heart rate, Denies pedal edema, Denies edema, Denies leg edema, Denies lightheadedness, Denies palpitations, Denies dyspnea, Denies dyspnea on exertion and Denies orthopnea Resp Denies cough, Denies dyspnea and Denies dyspnea on exertion GI Denies hematochezia and Denies change in stool character Musc Reports abnormal gait, Reports limited range of motion (leg weakness), Denies muscle cramps, Denies muscle weakness, Denies numbness, Denies radiating pain into limb, Denies stiffness and Denies tingling Neuro Reports abnormal gait, Denies dizziness, Denies numbness, Denies tingling and Reports weakness Endo Reports fatigue and Denies palpitations Physical Exam Vital Signs: Last Vital Signs Pulse 70 06/18/23 15:33 BP 114/62 06/18/23 15:33 BMI result Body Mass Index 32.7 Const Other: ambulates slowly with walker General: cooperative and no acute distress Orientation/consciousness: patient oriented x3 Neck Neck: Yes normal visual inspection and Yes no JVD Resp Effort & Inspection: normal respiratory effort Auscultation: clear to auscultation bilaterally, no crackles, no rales, no rhonchi and no wheezes Cardio Jugular venous distension: no JVD Rate: regular rate Rhythm: regular rhythm Heart sounds: S1 normal heart sound present, S2 normal heart sound present, no murmurs and no rubs Neuro General: patient oriented x3 Extrem Other: tight bilateral lower leg edema to level of knee. R>L - he states improved from prior Psych Appearance: grossly normal Mental Status: mental status grossly normal Speech and movement: Normal speech and movement present Assessment & Plan Assessment & Plan (1) Chronic right heart failure: Comment: PATIENT IS A KNOWN CASE OF CHRONIC RIGHT-SIDED HEART FAILURE, HE HAD RATHER SEVERE EDEMA OF LOWER EXTREMITIES, BACK ABOUT 3 MONTHS AGO, WHICH HAS IMPROVED WITH DIURESIS. THIS HAS RESULTED IN A WEIGHT LOSS OF ABOUT 36 LB. Code(s): I50.812 - Chronic right heart failure Plan: History of chronic right heart failure. Last echo done on 08/10/2022 showing EF 60-65%, moderate increase in the RV size and mildly decreased RV systolic function, moderately elevated RV systolic pressure with significant elevated right atrial pressures, moderate tricuspid regurgitation, dilated ascending aorta 4.3. He is on Lasix which had been 80 mg daily. He tells me that during rehab his dose was reduced down to 60 mg daily. He does have bilateral leg edema on examination which seems to be chronic for him. He tells me overall his legs currently look better than they had been in the recent past. Signs and symptoms of decompensated heart failure reviewed with him. Instructed to increase his Lasix to 80 mg daily if he sees that his leg edema is increasing or weight is going up. Instructed on daily weight monitoring. Low-salt diet reviewed. Leg elevation when sitting. (2) PAF (paroxysmal atrial fibrillation): Code(s): I48.0 - Paroxysmal atrial fibrillation Plan: History of paroxysmal atrial fibrillation. Recent hospitalization with acute illness. Discharge summary reviewed and does not seem that he had issues with PAF during his admission. He is not on rate slowing medications. He is on Coumadin for anticoagulation. INR goal 2-3. Follows with [facility] anticoagulation Clinic. Did have GI bleeding at rehab facility and was admitted to [facility] for 2 days. He has follow-up with Dr. Barraza for GI on 06/28/2023. At present he denies any bleeding issues. (3) Ascending aorta dilatation: Code(s): I77.810 - Thoracic aortic ectasia Plan: As above, 4.3 cm. Will follow with periodic echoes. Blood pressure well controlled. (4) Nonrheumatic tricuspid (valve) insufficiency: Comment: THIS MAY BE THE UNDERLYING CAUSE FOR HIS CONGESTIVE HEART FAILURE, PATIENT IS BEING ACTIVELY FOLLOWED BY CARDIOLOGY. Code(s): I36.1 - Nonrheumatic tricuspid (valve) insufficiency Plan: Moderate tricuspid regurgitation. May be related to pacemaker wire that goes through valve and is sitting in right ventricle. Managing with diuretics at this time. (5) Current use of anticoagulant therapy: Code(s): Z79.01 - correction (current) use of anticoagulants Plan: He is on Coumadin for anticoagulation as above. (6) Essential hypertension: Code(s): I10 - Essential (primary) hypertension Plan: Well controlled at present. No med changes made. (7) Pacemaker: Code(s): Z95.0 - Presence of cardiac pacemaker Plan: Biotronik dual-chamber pacemaker in place. Functioning normally on remote pacemaker monitoring. V paces 94%, A paced 13 %. Battery 40%. Plan Time spent with chart review, documentation, interview and assessment Coding Level of Care Code Est Pt Level 4 (27440) Diagnoses Chronic right heart failure I50.812 PAF (paroxysmal atrial fibrillation) I48.0 Ascending aorta dilatation I77.810 Nonrheumatic tricuspid (valve) insufficiency I36.1 Current use of anticoagulant therapy Z79.01 Essential hypertension I10 Pacemaker Z95.0 Time Spent (min) 30
[2023-06-18 15:33] VITALS: BP 114/62; PULSE 70; BMI 32.7
== END 2023-06-18 16:20 | disposition home or self-care (01) ==
PROVIDERS: PCP Internal Medicine; Visit Provider Nurse Practitioner Family
DX: I50.812 Chronic right heart failure (principal); I48.0 Paroxysmal atrial fibrillation; I77.810 Thoracic aortic ectasia; I36.1 Nonrheumatic tricuspid (valve) insufficiency; Z79.01 Long term (current) use of anticoagulants; I10 Essential (primary) hypertension; Z95.0 Presence of cardiac pacemaker
CPT/HCPCS: 99214

== ENCOUNTER → 2023-06-20 14:14 | Outpatient (BNVA) | payer MEDICARE, OTHER, SELFPAY | PROVIDERS: PCP Internal Medicine; Visit Provider Internal Medicine ==

== ENCOUNTER → 2023-06-22 16:02 | Outpatient (BNVA) | payer MEDICARE, OTHER, SELFPAY | PROVIDERS: PCP Internal Medicine; Visit Provider Internal Medicine ==

== ENCOUNTER 2023-06-25 09:40 | Outpatient (AMB) | payer MEDICARE, OTHER, SELFPAY ==
--- NOTE | 2023-06-25 09:49 | MHC.PC.OV ---
Vital Signs 06/25/23 09:50 Height 5 ft 4 in Weight 200 lb BMI 34.3 BP 120/66 Blood Pressure Location Lt brachial Position Sitting Pulse 68 Pulse Source Pulse Oximeter Pulse Oximetry (%) 95 Oxygen Delivery Method Room Air Intake Visit Reasons: HD F/U-[place] 06/15/22-Bowel Obstruction/GI Bleed Intake Note: Pt is here today for a Hospital follow up visit. Allergies No Known Allergies Allergy (Verified 06/25/23 09:54) Tobacco use date assessed: 06/25/23 Fall risk assessment: 2 + Falls in past year Last assessed Fall Risk: 06/25/23 Dental Screening Dental Screen Date: 06/25/23 Did you have a dental visit in the last 12 months?: Yes Did you have a dental problem in the last 6 months where you did not have access to dental care?: No Was dental information given to patient?: Patient has dentist HPI HD F/U-[place] 06/15/22-Bowel Obstruction/GI Bleed HPI Details Patient presents for follow-up of hospitalization for pneumonia followed by low-grade GI bleed and diverticulitis and prolonged SNF stay for deconditioning. Patient is feeling better but still weak having difficulties walking up and down the stairs. he denies palpitation chest pain PND orthopnea. He is chronic lower extremity edema has been managed with furosemide. Patient has been on Coumadin for AFib. Patient follows up with GI for episode of a bleed most likely related to diverticular disease. He has been getting periodic blood test for CBC and electrolytes. [facility] Medical History (Updated 06/25/23 @ 11:27 by Minnie Lowe MD) Nonrheumatic tricuspid (valve) insufficiency Chronic right heart failure Current use of anticoagulant therapy Anticoagulated on Coumadin Right rib fracture CHF (congestive heart failure) Nocturnal hypoxemia SHALONDA (obstructive sleep apnea) Peripheral edema Annual physical exam Left tennis elbow Essential hypertension PAF (paroxysmal atrial fibrillation) History of hydrocele Nocturia Bladder outlet obstruction Bladder cancer Prostate cancer Hyperlipidemia HTN (hypertension) Normally functioning cardiac pacemaker present Varicose veins of bilateral lower extremities with other complications History of atrial fibrillation Surgical History History of hydrocelectomy Hx of varicose vein stripping Hx of subdural hematoma History of phacoemulsification of cataract of both eyes with intraocular lens implantation Hx of cardiac pacemaker Hx of colonoscopy Hx of parathyroidectomy Hx of cystoscopy Family History Father Cancer Prostate cancer Mother Cancer, Onset Age: 85 Son No problems noted. Daughter No problems noted. Maternal Grandfather No problems noted. Maternal Grandmother No problems noted. Paternal Grandfather No problems noted. Paternal Grandmother No problems noted. Social History Household Members: Spouse Housing: House Are you a primary career resource technician to a significant other at home: No Do you presently have visiting nurse or other home services: No Alcohol intake: current Alcohol intake frequency: holidays/special occasions only Alcohol type: wine Patient Tobacco Use Status: Never used Tobacco e-Cigarette/Vaping Use: Never Used Advance Directives Date on File: 05/02/21 service: No Current occupational status: retired Cognitive needs: No Hearing needs: No Vision needs: Yes Questionnaire PHQ-9 Over the last 2 weeks, how often have you been bothered by any of the following problems? 1. Little interest or pleasure in doing things: not at all 2. Feeling down, depressed, or hopeless: not at all 3. Trouble falling or staying asleep, or sleeping too much: several days 4. Feeling tired or having little energy: several days 5. Poor appetite or overeating: not at all 6. Feeling bad about yourself - or that you are a failure or have let yourself or your family down: not at all 7. Trouble concentrating on things, such as reading the newspaper or watching television: not at all 8. Moving or speaking so slowly that other people could have noticed. Or the opposite - being so fidgety or restless that you have been moving around a lot more than usual: not at all 9. Thoughts that you would be better off or of hurting yourself in some way: not at all Total score: 2 Depression Screening Interpretation: Negative Depression Screening Done: Yes Source: Developed by Drs. Chago Lowery, Jennifer Farah, Ricardo Godoy and colleagues, with an educational jared from [employer]. Thrive Questionnaire Date Thrive assessed: 06/25/23 I am a: Patient What is your living situation today?: I have a steady place to live Within the past 12 months, did the food you bought not last and you didn't have the money to get more?: Never true Within the past 12 months, did you worry whether your food would run out before you got money to buy more?: Never true Do you have trouble paying for medicines?: No Do you have trouble getting transportation to medical appointments?: No Do you have trouble paying your heating and electricity bill?: No Do you have trouble taking care of your child, family member or friend?: No Do you have trouble with day-to-day activities such as bathing, preparing meals, shopping, managing finances, etc.?: No Are you currently unemployed and looking for a job?: No Are you interested in more education?: No Please select the resources that you would like help with: None AUDIT C Alcohol Use Questionnaire (AUDIT-C) 1. How often do you have a drink containing alcohol?: Monthly or less 2. How many drinks containing alcohol do you have on a typical day when you are drinking?: 1 or 2 3. How often do you have six or more drinks on one occasion?: Never Total Score: 1 TIMMY-7 AMB Questionnaire TIMMY-7 Date TIMMY - 7 assessed: 06/25/23 Feeling nervous, anxious, or on edge: 0 = Not at all Not being able to stop or control worryin = Not at all Worrying too much about different things: 0 = Not at all Trouble relaxin = Not at all Being so restless that it is hard to sit still: 0 = Not at all Becoming easily annoyed or irritable: 0 = Not at all Feeling afraid as if something awful might happen: 0 = Not at all Total TIMMY-7 score (0-4 normal; 5-9 mild; 10-14 moderate; 15-21 severe): 0 Source: Developed by Drs. Chago Lowery, Jennifer Farah, Ricardo Godoy and colleagues, with an educational jared from [employer]. Review of Systems Const All systems reviewed & are unremarkable except as noted in HPI and below Reports no additional complaints Eyes Reports no additional complaints ENT Reports no additional complaints Card Reports no additional complaints Resp Reports no additional complaints GI Reports no additional complaints Reports no additional complaints Physical exam (Primary Care) Vital Signs: Last Vital Signs Pulse 68 06/25/23 09:50 BP 120/66 06/25/23 09:50 Pulse Ox 95 06/25/23 09:50 Oxygen Delivery Method Room Air 06/25/23 09:50 BMI result Body Mass Index 34.3 Tobacco/Smoking Status: Tobacco use Status Tobacco use date assessed 06/25/23 06/25/23 09:56 Patient Tobacco Use Status Never used Tobacco 06/25/23 09:56 e-Cigarette/Vaping Use Never Used 06/25/23 09:56 PHQ-9: PHQ-9 Score PHQ-9: Total score 2 06/25/23 11:03 Depression Screening Interpretation: Negative Thrive Assessment: Date of Thrive Assessment Date Thrive assessed 06/25/23 06/25/23 11:03 Const General: no acute distress HENMT Head: Yes normal to inspection Mouth: Normal oral and palatal mucosa present Eyes General: appearance normal, both eyes and all related structures Neck Neck: Yes supple Resp Effort & Inspection: normal respiratory effort Auscultation: clear to auscultation bilaterally Cardio Rhythm: abnormal rhythm irregularly irregular Heart sounds: S1 normal heart sound present and S2 normal heart sound present GI Inspection: Yes obesity Palpation (GI): Soft to palpation Extrem Other: 3+ pitting edema bilaterally Assessment and Plan Assessment & Plan (1) PAF (paroxysmal atrial fibrillation): Comment: S/P pacemaker, on Coumadin Code(s): I48.0 - Paroxysmal atrial fibrillation Plan: Follow-up with Coumadin clinic (2) Prostate cancer: Comment: s/p RTX seed Code(s): C61 - Malignant neoplasm of prostate Plan: Follow-up with urology (3) Bladder cancer: Code(s): C67.9 - Malignant neoplasm of bladder, unspecified Qualifiers: Bladder location: unspecified site Qualified Code(s): C67.9 - Malignant neoplasm of bladder, unspecified Plan: Follow-up with urology (4) GI bleed: Comment: 2 diverticula, f/u GI Code(s): K92.2 - Gastrointestinal hemorrhage, unspecified Plan: Monitor CBC and follow-up with GI, continue iron supplement (5) Bilateral lower extremity edema: Comment: HE HAS MODERATE DEGREE OF EDEMA OF LOWER EXTREMITIES, PATIENT IS BEING TREATED WITH DIURESIS IS AND HE IS ALSO FOLLOWED BY E VASCULAR SURGEON DR. PEREYRA, REGULARLY Code(s): R60.0 - Localized edema Plan: Continue high dose of Lasix monitor electrolytes and renal function, Coding Level of Care Code Est Pt Level 4 (39415) Diagnoses PAF (paroxysmal atrial fibrillation) I48.0 Prostate cancer C61 Malignant neoplasm of urinary bladder, unspecified site C67.9 Bladder location: unspecified site GI bleed K92.2 Bilateral lower extremity edema R60.0
[2023-06-25 09:50] VITALS: BP 120/66; PULSE 68; O2SAT 95; BMI 34.3
== END 2023-06-25 10:24 | disposition home or self-care (01) ==
PROVIDERS: PCP Internal Medicine; Visit Provider Internal Medicine
DX: I48.0 Paroxysmal atrial fibrillation (principal); C61 Malignant neoplasm of prostate; C67.9 Malignant neoplasm of bladder, unspecified; K92.2 Gastrointestinal hemorrhage, unspecified; R60.0 Localized edema
CPT/HCPCS: 99214

== ENCOUNTER → 2023-06-25 12:43 | Outpatient (BNVA) | payer MEDICARE, OTHER, SELFPAY | PROVIDERS: PCP Internal Medicine; Visit Provider Internal Medicine ==

== ENCOUNTER 2023-06-28 08:25 | Outpatient (REF) | payer MEDICARE, OTHER, SELFPAY ==
[2023-06-28 11:47] LABS: MANUAL DIFF FLAG NO
[2023-06-28 12:22] LABS: Basophils Absolute Auto 0.1 X10*3/uL (0.0-0.2); Basophils Percent Auto 1.1 % (0-2); Hematocrit 33.8 % (42.0-52.0); Hemoglobin 10.3 g/dl (14.0-18.0); Imm Gran Abs Auto 0.02 X10*3/uL (0.00-0.03); Imm Gran Pct Auto 0.3 % (0.0-0.4); Lymphocytes Absolute Auto 1.5 X10*3/uL (1.2-4.9); Lymphocytes Percent Auto 21.4 % (20-40); Mean Corpuscular HGB Conc 30.5 g/dl (31.0-36.0); Mean Corpuscular Hemoglobin 29.1 pg (27.0-33.0); Mean Corpuscular Volume 95.5 fL (80.0-98.0); Monocytes Absolute Auto 0.8 X10*3/uL (0.1-1.2); Monocytes Percent Auto 11.4 % (2-11); Neutrophils Absolute Auto 4.6 x10*3/uL (2.0-8.3); Neutrophils Percent Auto 65.8 % (45-73); Platelet Count 240 X10*3/uL (160-400); Red Blood Count 3.54 X10*6/uL (4.60-5.80); Red Cell Distribution Width 16.7 % (11.0-16.0)
[2023-06-28 12:30] LABS: Alanine Aminotransferase 15 U/L (0-40); Albumin Level 3.6 g/dL (3.5-5.0); Alkaline Phosphatase 128 U/L (39-117); Anion Gap 14 (12-20); Aspartate Amino Transferase 21 U/L (5-37); Blood Urea Nitrogen 25 mg/dL (9-16); Carbon Dioxide 30 mmol/L (22-29); Chloride 104 mmol/L (96-108); Cholesterol 148 mg/dL (<200); Estimated Glomerular Filt Rate 58; Glucose Fasting 104 mg/dL (60-99); HDL Cholesterol 57 mg/dL (>40); LDL Cholesterol Calculated 75 mg/dL (<100); Potassium 3.3 mmol/L (3.3-5.1); Sodium 145 mmol/L (135-145); Total Protein 7.1 g/dL (6.5-8.0); Triglycerides 82 mg/dL (<150)
[2023-06-28 12:33] LABS: Prostate Specific Antigen 0.11 ng/mL (<0.05-4.0)
[2023-06-29 11:27] LABS: PES - Abn Protein Band 1 0.3 g/dL (NONE DETECTED); Prot Elec - Albumin 3.3 g/dL (3.8-4.8); Prot Elec - Alpha1 0.4 g/dL (0.2-0.3); Prot Elec - Alpha2 0.8 g/dL (0.5-0.9); Prot Elec - Beta 1 0.4 g/dL (0.4-0.6); Prot Elec - Beta 2 0.3 g/dL (0.2-0.5); Prot Elec - Gamma 1.4 g/dL (0.8-1.7); Prot Elec - Total Protein 6.5 g/dL (6.1-8.1)
[2023-06-29 16:57] LABS: Kappa Light Chain, Free Serum 81.7 mg/L (3.3-19.4); Lambda Light Chain, Free Serum 38.9 mg/L (5.7-26.3)
[2023-07-03 15:39] LABS: Kappa, Serum 330 mg/dL (176-443); Lambda, Serum 194 mg/dL (91-240)
== END 2023-06-28 08:26 | disposition home or self-care (01) ==
LOC: HO.HMGCLDS 08:25
PROVIDERS: PCP Internal Medicine; Visit Provider Internal Medicine Medical Oncology
DX: N40.0 Benign prostatic hyperplasia without lower urinary tract symptoms (principal); E66.8 Other obesity; C61 Malignant neoplasm of prostate; C67.9 Malignant neoplasm of bladder, unspecified; D47.2 Monoclonal gammopathy; Z12.5 Encounter for screening for malignant neoplasm of prostate
CPT/HCPCS: 36415; 80053; 80061; 83521; 83883; 84153; 84165; 85025

== ENCOUNTER → 2023-06-29 23:59 | Outpatient (BNV) | payer MEDICARE, OTHER, SELFPAY | PROVIDERS: PCP Internal Medicine; Visit Provider Internal Medicine | DX: I11.0 Hypertensive heart disease with heart failure (principal); I50.9 Heart failure, unspecified; I48.0 Paroxysmal atrial fibrillation; I71.02 Dissection of abdominal aorta | CPT/HCPCS: G0180 ==

== ENCOUNTER → 2023-07-02 14:41 | Outpatient (BNVA) | payer MEDICARE, OTHER, SELFPAY | PROVIDERS: PCP Internal Medicine; Visit Provider Internal Medicine ==

== ENCOUNTER → 2023-07-06 15:54 | Outpatient (BNVA) | payer MEDICARE, OTHER, SELFPAY | PROVIDERS: PCP Internal Medicine; Visit Provider Internal Medicine ==

== ENCOUNTER → 2023-07-09 11:32 | Outpatient (BNVA) | payer MEDICARE, OTHER, SELFPAY | PROVIDERS: PCP Internal Medicine; Visit Provider Internal Medicine ==

== ENCOUNTER 2023-07-10 13:40 | Outpatient (AMB) | payer MEDICARE, OTHER, SELFPAY ==
[2023-07-10 13:51] LABS: Prothrombin Time Whole Bld POC > 96.0 sec (11.1-13.5); ~PT, ~INR - Anti Coag Clinic > 8.0 (0.9-1.1)
--- NOTE | 2023-07-10 14:26 | MHC.OFFVISCO ---
Intake Intake Visit Reasons: Anticoagulation Allergies No Known Allergies Allergy (Verified 07/10/23 13:41) Medication List - Last Reconciled 07/10/23 by Juliana Lynn, RN acetaminophen ER (Tylenol Arthritis Pain) 650 mg PO DAILY calcium carbonate-vitamin D3 600 mg-5 mcg (200 unit) 1 tab PO DAILY cholecalciferol (vitamin D3) 25 mcg PO DAILY docusate sodium 100 mg PO BID PRN furosemide (Lasix) 80 mg PO DAILY magnesium oxide 400 mg PO BID multivitamin 1 tab PO DAILY pantoprazole 40 mg PO BID pantoprazole 40 mg PO BID tamsulosin 0.4 mg PO BEDTIME 90 days thiamine HCl (vitamin B1) 100 mg PO DAILY warfarin 5 mg See Protocol PO DAILY warfarin 2.5 mg See Protocol PO DAILY Nursing Note INR yesterday was 5.7 by [facility] after taking double doses by mistake over the weekend. INR: POC >8 X2. PT BROUGHT TO LAB FOR VERIFICATION WITH ADDED CBC AND BMPF. CALLED AND IS NOW HERE IN LAB SITTING WITH PT. PT RECOGNIZES NEED FOR ASSISTANCE AND ASKED FOR TO BE CALLED. UPON QUESTIONING PT, HE NOTED DARK STOOLS LATELY. NO OTHER OBVIOUS BLEEDING. PT IS EDEMATOUS UP TO HIS SCROTUM. DENIES ANY PAIN BUT VEBALIZES DISCOMFORT. STATES FUROSEMIDE IS 80MG DAILY. INR 9.3 confirmed by lab CBC and BMP completed and requested Dr Lowe be notified with results t/c to PCP - Dr Lowe recommends pt go to the ER Call placed to ER by nurse Lily spoke with nurse Perez with pt status above. Pt was brought to the ER via wheel chair with , with unusual large amt of people waiting spouse and decided they will go home and come back tomorrow, Pt and state he will go to ER or call ambulance with any black stools, change in mental status or confusion,any falls, unusual bleeding or bruising, instructed not take any warfarin both pt and understand and agree They will report back [facility] tomorrow for repeat INR. stated that she will feed him foods high in vit k such as broccoli and spinach as soon as they get home. Both advised to stay home and minimize any activity to decrease risk of falls Will also notify Dr Bush of pt status with this note. Anti-Coag Initial Assessment Social Hx Patient Tobacco Use Status: Never used Tobacco alcohol intake: current Alcohol intake frequency: holidays/special occasions only Coding Level of Care Code Est Patient Level 2 Diagnoses Current use of anticoagulant therapy Z79. 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 - half-way (current) use of anticoagulants Complete Blood Count Auto Diff Today Z79. - half-way (current) use of anticoagulants
== END 2023-07-10 16:15 | disposition home or self-care (01) ==
LOC: HO.ACS 13:40
PROVIDERS: PCP Internal Medicine; Visit Provider Internal Medicine
DX: Z79.01 Long term (current) use of anticoagulants (principal)

== ENCOUNTER 2023-07-10 13:40 | Outpatient (REF) | payer MEDICARE, OTHER, SELFPAY ==
[2023-07-10 14:43] LABS: MANUAL DIFF FLAG NO
[2023-07-10 14:47] LABS: Basophils Absolute Auto 0.1 X10*3/uL (0.0-0.2); Basophils Percent Auto 0.8 % (0-2); Hematocrit 34.3 % (42.0-52.0); Hemoglobin 10.5 g/dl (14.0-18.0); Imm Gran Abs Auto 0.02 X10*3/uL (0.00-0.03); Imm Gran Pct Auto 0.3 % (0.0-0.4); Lymphocytes Absolute Auto 1.4 X10*3/uL (1.2-4.9); Lymphocytes Percent Auto 19.2 % (20-40); Mean Corpuscular HGB Conc 30.6 g/dl (31.0-36.0); Mean Corpuscular Hemoglobin 29.2 pg (27.0-33.0); Mean Corpuscular Volume 95.5 fL (80.0-98.0); Monocytes Absolute Auto 0.9 X10*3/uL (0.1-1.2); Monocytes Percent Auto 11.9 % (2-11); Neutrophils Absolute Auto 4.9 x10*3/uL (2.0-8.3); Neutrophils Percent Auto 67.8 % (45-73); Platelet Count 198 X10*3/uL (160-400); Red Blood Count 3.59 X10*6/uL (4.60-5.80); Red Cell Distribution Width 17.2 % (11.0-16.0); White Blood Count 7.3 X10*3/uL (4.8-10.8)
[2023-07-10 14:57] LABS: Prothrombin Time 113.3 SEC (11.1-13.3)
[2023-07-10 14:58] LABS: Anion Gap 13 (12-20); Blood Urea Nitrogen 29 mg/dL (9-16); Calcium 9.2 mg/dL (8.4-10.2); Carbon Dioxide 31 mmol/L (22-29); Chloride 102 mmol/L (96-108); Estimated Glomerular Filt Rate > 60; Glucose Random 101 mg/dL (60-115); Potassium 3.3 mmol/L (3.3-5.1); Sodium 143 mmol/L (135-145)
[2023-07-10 15:09] LABS: INTERNATIONAL NORM RATIO 9.3 (0.9-1.1)
== END 2023-07-10 13:41 | disposition home or self-care (01) ==
LOC: HO.LAB 13:40
PROVIDERS: PCP Internal Medicine; Visit Provider Internal Medicine
DX: Z13.89 Encounter for screening for other disorder (principal)
CPT/HCPCS: 36415; 80048; 85025; 85610; 99212

== ENCOUNTER 2023-07-11 11:17 | Inpatient (IN) | payer MEDICARE, OTHER, SELFPAY ==
--- NOTE | ~2023-07-11 | XR_ITS ---
EXAMINATION: XR CHEST CLINICAL INFORMATION: CHF exacerbation COMPARISON: Chest x-ray May 24, 2023 TECHNIQUE: Frontal portable view of the chest was obtained. 1224 hours FINDINGS: Pacemaker leads in right atrium and right ventricle. No acute airspace disease. No pulmonary vascular congestion. There is no pleural effusion and no pneumothorax. XR/XR chest 1V IMPRESSION: No acute abnormality of chest.
--- NOTE | ~2023-07-11 | US_ITS ---
EXAMINATION: US VENOUS ULTRASOUND WITH DOPPLER LOWER EXTREMITY, BILATERAL CLINICAL INFORMATION: Bilateral leg swelling. Bilateral leg swelling. COMPARISON: Venous ultrasound 05/25/2023. TECHNIQUE: Ultrasound of the deep veins is performed from the hip to the calf with compression sonography and color and pulse Doppler assessment. Spectral analysis with color-flow imaging is performed. FINDINGS: RIGHT: There is normal venous compression and respiratory variation and augmented flow. The visualized common femoral vein, superficial femoral vein, profunda femoral vein, popliteal vein, and the trifurcation region shows no evidence of deep venous thrombosis. Biphasic waveforms throughout suggestive of increased right atrial pressure. 5.9 x 1.1 x 1.0 cm Linares's cyst. LEFT: There is normal venous compression and respiratory variation and augmented flow. The visualized common femoral vein, superficial femoral vein, profunda femoral vein, popliteal vein, and the trifurcation region shows no evidence of deep venous thrombosis. There is eccentric wall thickening of the gastrocnemius vein which may relate to changes from a remote DVT but does not have the appearance of an acute DVT. Biphasic waveforms throughout suggestive of increased right atrial pressure. There is no significant popliteal fossa cyst. US/US venous duplex LE BI IMPRESSION: No evidence of acute DVT in the bilateral lower extremities. Eccentric wall thickening of the left gastrocnemius vein consistent with sequela of prior DVT. Biphasic venous Doppler waveforms suggesting elevated right heart pressures. 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
--- NOTE | 2023-07-11 07:00 | CA_ITS ---
Transthoracic Echocardiogram Patient (Last, First, Middle): Jung Funes C Gender: Male Date of : 1940 Age: 83 Procedure Date: 07/11/2023 Procedure Type: Transthoracic Echocardiogram Location: ER Height: 162.56 cm Weight: 94.35 kg BSA: 1.99 m2 Heart Rate: bpm BP: 126 / 78 mmHg Director Franchise Sales: TO Referring MD: Annalisa CLARK Clinical Molecular Geneticist: Bryce Yu MD Symptoms: chf exacerbation Study Quality: Fair/Contrast ECG Rhythm: Ventriculary paced rhythm Conclusions: - 1. Mildly reduced LV ejection fraction 45-50% 2. Moderately dilated right ventricle with moderately reduced RV systolic function 3. Biatrial enlargement with severe left atrial enlargement 4. Mild aortic and mitral regurgitation 5. Moderately elevated right ventricular systolic pressure significantly elevated right atrial pressures 6. No gross pericardial effusion Findings Procedure Information Contrast agent, definity, is being given per protocol without apparent complications. Left Ventricle Normal left ventricular cavity size. There is mildly increased left ventricular wall thickness. The left ventricular systolic function is mildly decreased. The visually estimated ejection fraction is between 45-50%. There is paradoxical septal motion consistent with a right ventricular pacemaker. Elevated filling pressures. Right Ventricle Moderately increased right ventricular cavity size. There is moderately decreased right ventricular systolic function. There is a pacemaker wire seen in the right ventricle. Atria The left atrium is severely dilated. The right atrium is moderately dilated. Aortic Valve There is mild calcification of the aortic valve. There is no aortic valve stenosis. There is mild aortic valve regurgitation. Mitral Valve There is mild anterior and posterior mitral leaflet thickening. There is mild mitral valve regurgitation. There is no mitral valve stenosis. Pulmonic Valve The pulmonic valve was not well visualized. Tricuspid Valve There is mild to moderate tricuspid valve regurgitation. Significantly elevated right atrial pressure. Moderate pulmonary hypertension is present. Great Vessels The pulmonary artery was not well visualized. There is moderate dilatation of the ascending aorta measuring 4.60 cm. Venous The inferior vena cava is moderately dilated and does not collapse with inspiration. Pericardium/Pleural There is no evidence of pericardial effusion. Prior Study Comparison Changes noted compared to prior study dated: 08/10/2022. LV systolic function is mildly reduced. Delay in reporting due to technical issues Measurements 2D Linear Measurements IVSd: 1.51 0.6-0.9/0.6-1.0 cm LVIDd: 4.47 3.9-5.3/4.2-5.9 cm LVIDd Index: 2.25 2.4-3.2/2.2-3.1 cm/m2 LVIDs: 3.42 2.0-3.6 cm LVPWd: 1.22 0.7-1.1 cm LA Diam: 3.80 2.7-3.8/3.0-4.0 cm LAIDs Index: 1.91 1.5-2.3 cm/m2 LV Mass: 295.29 67-162/88-224 g LV Mass Index: 148.39 43-95/49-115 g/m2 LVOT Diam: 2.20 3.0+(-)1.3 cm 2D Systolic Function EF 4C: 46.70 >55% EF 2C: 45.60 >55% EF BiP: 46.00 >55% Mitral Valve MV Pk E: 0.75 MV PK A: 0.33 MV Decel Time: 182.00 E/A: 2.30 E'Lateral: 4.90 E'Medial: 4.03 E/E' Med: 18.70 E/E' Lat: 15.40 PHT: 53.00 MVA PHT: 4.15 Decel Clayton: 4.15 Aortic Valve AoV Pk Luisito: 1.10 AoV Pk Grad: 5.00 LVOT LVOT Pk Luisito: 0.81 LVOT Mn Luisito: 0.52 LVOT VTI: 0.16 LVOT Pk Grad: 3.00 LVOT Mn Grad: 1.00 LVOT Diam: 2.20 LVOT Area: 3.80 Diastolic Function MV Pk E: 0.75 MV Pk A: 0.33 E/A: 2.30 E'Medial: 4.03 E/E' Med: 18.70 E' Laterial: 4.90 E/E' Lat: 15.40 Right Ventricle TAPSE (mm): 12.90 TVS' Luisito: 8.74 Tricuspid Valve TR Pk Luisito: 3.32 TR Pk Grad: 44.00 RA Press: 15.00 RVSP: 59.00 Great Vessels Aorta Sinus of Valsalva: 4.57 2.0-3.[address] [place]: 3.75 1.7-3.4 cm Ao Asc: 4.60 2.1-3.4 cm Updated in Other Vendor System with Status of Final Bryce Yu MD electronically signed on 07/12/2023 12:25:50 PM with status of Final
[2023-07-11 11:19] VITALS: BP 137/86; PULSE 71; RESP 18; TEMP 36.3; O2SAT 93; BMI 35.7
--- NOTE | 2023-07-11 11:24 | ECG_ITS ---
Test Reason : LEG SWELLING Blood Pressure : / mmHG Vent. Rate : 069 BPM Atrial Rate : 055 BPM P-R Int : 000 ms QRS Dur : 184 ms QT Int : 512 ms P-R-T Axes : 000 267 081 degrees QTc Int : 548 ms Ventricular-paced rhythm Abnormal ECG When compared with ECG of 17-MAY-2023 07:26, No significant change was found Referred By: Grey Carrillo Electronically Signed By:EDI COSTELLO MD
--- NOTE | 2023-07-11 11:26 | ED.GENADULT ---
HPI - General Adult General Chief complaint: General Medical Stated complaint: Needs infusion Time Seen by Provider: 07/11/23 12:28 Source: patient Mode of arrival: ambulatory Limitations: no limitations History of Present Illness HPI narrative: Patient is an 83 year old assigned male at with a history of CHF, pacemaker, and atrial fib on coumadin presenting to the emergency department today with increased weight gain and concern of high INR. Patient states that he was told yesterday that he has an elevated INR and has been experiencing significant weight gain of at least 10lbs despite being on 80mg of lasix. Patient denies any dizziness, lightheadedness, abdominal pain, nausea, vomiting, fever, chills, blurry vision, double vision, loss of vision, chest pain, difficulty breathing, shortness of breath, back pain, night sweats, pain with urination, increased urinary frequency, increased urinary urgency, blood in his urine or stool, syncope or a near syncopal episode, recent trauma or falls, bowel incontinence, bladder incontinence, bowel retention, bladder retention, or any other complaints at this time. Onset (ago): day(s) Relieving factors: none Exacerbating factors: none Associated symptoms: denies other symptoms Treatments prior to arrival: none Related Data Home Medications Medication Instructions Recorded Confirmed acetaminophen 650 mg 650 mg PO DAILY Pain 10/22/20 07/11/23 tablet,extended release (Tylenol Arthritis Pain) multivitamin 1 tab PO DAILY 05/12/21 07/11/23 calcium carbonate 600 mg-vitamin 1 tab PO DAILY 05/17/23 07/11/23 D3 5 mcg (200 unit) tablet cholecalciferol (vitamin D3) 25 25 mcg PO DAILY 05/17/23 07/11/23 mcg (1,000 unit) tablet magnesium oxide 400 mg (241.3 mg 400 mg PO DAILY 06/20/23 07/11/23 magnesium) tablet furosemide 40 mg tablet (Lasix) 80 mg PO DAILY 06/25/23 07/11/23 amlodipine 2.5 mg tablet 2.5 mg PO DAILY 07/11/23 07/11/23 ferrous sulfate 325 mg (65 mg 325 mg PO DAILY 07/11/23 07/11/23 iron) tablet lisinopril 40 mg tablet 40 mg PO DAILY 07/11/23 07/11/23 Previous Rx's Medication Instructions Recorded tamsulosin 0.4 mg capsule 0.4 mg PO BEDTIME 90 days #90 caps 02/13/23 Allergies Allergy/AdvReac Type Severity Reaction Status Date / Time No Known Allergies Allergy Verified 07/10/23 13:41 Review of Systems Constitutional: Constitutional: Reports no additional constitutional complaints, Denies chills, Denies fever(s), Denies night sweats and Reports weight gain Eyes: Eyes: Reports no additional eye complaints, Denies blurry vision, Denies change in vision, Denies diplopia, Denies eye discharge, Denies loss of vision and Denies eye pain ENT: Denies dizziness Cardiovascular: Cardiovascular: Reports no additional cardiovascular complaints, Denies chest pain, Reports leg edema, Denies lightheadedness, Denies Loss of Consciousness and Denies dyspnea Respiratory: Respiratory: Reports no additional respiratory complaints and Denies dyspnea Gastrointestinal: Gastrointestinal: Reports no additional gastrointestinal complaints, Denies abdominal pain, Denies melena, Denies hematochezia, Denies change in bowel habits and Denies change in stool character Genitourinary: Genitourinary: Reports no additional male genitourinary complaints, Denies hematuria, Denies oliguria, Denies difficulty urinating, Denies dysuria, Denies urinary frequency, Denies urinary hesitancy, Denies urinary incontinence and Denies urinary urgency Musculoskeletal: Musculoskeletal: Reports no additional musculoskeletal complaints, Denies numbness and Denies tingling Neurologic: Denies dizziness, Denies loss of vision, Denies numbness and Denies tingling Psychiatric: Psychiatric: Reports no additional psychiatric complaints Endocrine: Endocrine: Reports no additional endocrine complaints Hematologic/Lymphatic: Hematologic/Lymphatic: Reports no additional hematologic/lymphatic complaints Allergic/Immunologic: Allergic/Immunologic: Reports no additional allergic/immunologic complaints [facility] Past Medical History Attestation statement: The following information was validated with the patient. 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 Daughter No problems noted. Maternal Grandfather No problems noted. Maternal Grandmother No problems noted. Paternal Grandfather No problems noted. Paternal Grandmother No problems noted. Social History Social History Household Members: Spouse Housing: House Are you a primary morning caregiver to a significant other at home: No Do you presently have visiting nurse or other home services: No Alcohol intake: current Alcohol intake frequency: holidays/special occasions only Alcohol type: wine Patient Tobacco Use Status: Never used Tobacco e-Cigarette/Vaping Use: Never Used Use of substances other than those prescribed or required for medical reasons: No Currently Displaying Signs/Symptoms of Drug Intoxication Withdrawal: No Any prior treatment program specific to substance use: No Have you been hit, kicked, punched, or otherwise hurt by someone within the past year? If so, by whom?: No Do you feel safe in your current relationship?: Yes Is there a partner from a previous relationship who is making you feel unsafe now?: No Are you made to feel afraid or neglected: No Protestant Healthcare Practices: hinduism Advance Directives: Yes Advance Directives on File: Yes Advance Directives Date on File: 05/02/21 Do you have thoughts of harming others: None Do you have a plan to hurt others: No Plan Recently lost weight without trying: No Eating poorly because of decreased appetite: No Nutrition Risks: No Nutritional Risk service: No Current occupational status: retired Cognitive needs: No Hearing needs: No Vision needs: Yes Physical Exam ED Vital Signs: Vital Signs - 24 hr 07/11/23 11:19 07/11/23 13:27 07/11/23 13:58 Temperature 97.4 F 97.6 F 97.6 F Pulse Rate 71 69 68 Respiratory Rate 18 18 16 Blood Pressure 137/86 124/77 126/79 Pulse Oximetry 93 95 94 Oxygen Delivery Method Room Air Room Air Room Air BMI result Body Mass Index 35.7 Const General: cooperative, no acute distress, alert and awake Nutritional Appearance: well nourished Orientation/consciousness: patient oriented x3 Limitations: no limitations HENMT Head: Yes normal to inspection and Yes atraumatic Ears: hearing grossly normal bilaterally and external ears normal General nose exam: Normal external nose present, no nasal discharge noted and no epistaxis Face and sinus: Yes normal facial exam, No abrasion and No laceration Mouth: Normal oral and palatal mucosa present, no drooling and no muffled voice Eyes General: appearance normal, both eyes and all related structures Periorbital: periorbital findings normal Eyelids: Yes eyelids normal Conjunctivae: conjunctivae normal Pupils: Equal, round and reactive pupils present EOM: EOMs intact bilaterally Neck Neck: Yes normal visual inspection, Yes full ROM and Yes no lymphadenopathy Chest Chest palpation & inspection: normal inspection of the chest Resp Effort & Inspection: normal respiratory effort and able to speak in complete sentences GI Inspection: Yes normal to inspection Neuro General: patient oriented x3 and moves all extremities Cranial nerves: Yes Equal, round and reactive pupils present Cognition (Neuro): normal cognition Motor exam (neuro): 5/5 motor strength present throughout Sensory Exam: Normal double simultaneous stimulation for sensation Coordination: [id number]-vc-[id number] test normal Extrem Other: bilateral lower leg 4+ edema General: Yes full ROM and Yes capillary refill normal Psych Appearance: grossly normal Mental Status: mental status grossly normal Affect: normal affect Attitude: cooperative Thought process: Normal thought process present Thought content: Normal thought content present Insight: Good insight present (Psych) Course Course Course Narrative: RME: 83-year-old male history of pacemaker, right-sided heart failure, GI bleed presents to the ED for elevated Coumadin and also increased swelling of lower extremities. Patient states last INR test was 9. Patient denies any chest pain or shortness of breath. Patient admits to increased swelling of lower extremities and scrotum. Labs, EKG, ultrasound, chest x-ray, COVID swab ordered. Positive for bilateral lower extremity swelling with pitting edema. Lower extremity anasarca. Medications Administered Generic Name Dose Route Start Last Admin Trade Name Freq PRN Reason Stop Dose Admin Sodium Chloride 3 ml 07/11/23 16:00 07/11/23 16:40 0.9 % Sodium Chloride Flush 3 Ml Syringe IVFLUSH 3 ml QSHIFT SUDARSHAN Administration Discontinued Medications Generic Name Dose Route Start Last Admin Trade Name Aye PRN Reason Stop Dose Admin Furosemide 80 mg 07/11/23 12:49 07/11/23 13:23 Furosemide 100 Mg/10 Ml Vial IVPUSH 07/11/23 12:50 80 mg ONCE ONE Administration Protocol Potassium Chloride 10 meq in 100 mls @ 100 mls/hr 07/11/23 13:00 07/11/23 19:13 Potassium Chloride/H20 IV 07/11/23 14:59 Infused Q1H SUDARSHAN Infusion Metolazone 5 mg 07/11/23 12:49 07/11/23 13:23 Metolazone 5 Mg Tablet PO 07/11/23 12:50 5 mg ONCE ONE Administration Potassium Chloride 40 meq 07/11/23 14:05 07/11/23 15:18 Potassium Chloride Packet 20 Meq Packet PO 07/11/23 14:06 40 meq ONCE ONE Administration Medical Decision Making Medical Decision Making [facility] Narrative: Patient is an 83 year old assigned male at with a history of CHF, atrial fib on coumadin, and a pacemaker presenting to the emergency department today with weight gain and an elevated Coumadin. Patient's physical exam was as noted in the physical exam portion of this note. Patient has significant edema to the bilateral lower extremities. Patient's blood work showed an elevated BNP of 352, potassium of 3.1, and INR of 8.1. Patient's EKG was unremarkable. Patient's chest x-ray and bilateral venous duplex US of the lower extremities showed no acute process. 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 Hospitalist team agreed to admission. I explained my physical exam findings as well as all test results to the patient. I answered all questions asked by the patient. Patient verbalized agreement and understanding with this treatment plan and admission. Differential Diagnosis Differential Diagnoses: The differential diagnosis associated with the presentation includes Fluid retention Anasarca CHF exacerbation Elevated INR Admission/Observation Consideration of admission/observation: Escalation of care including admission/observation considered Patient would have been admitted to the hospital had his work up had any findings where hospital admission was appropriate and his clinical presentation warranted hospital admission. Consult Healthcare Provider Management of the patient was discussed with: Hospitalist (agreed to admission.) and Finished Cloth Checker (spoke with cardiology as noted in the MDM Rationale portion of this note.) Lab Data [facility] Lab Attestation statement: I reviewed the patient's lab results. My interpretation of these results are in the MDM Rationale portion of this note. 07/11/23 11:37 07/11/23 11:37 Labs: Lab Results 07/11/23 07/11/23 Range/Units 11:37 13:57 WBC 6.2 (4.8-10.8) X10*3/uL RBC 3.80 L (4.60-5.80) X10*6/uL Hgb 10.9 L (14.0-18.0) g/dl Hct 35.8 L (42.0-52.0) % MCV 94.2 (80.0-98.0) fL MCH 28.7 (27.0-33.0) pg MCHC 30.4 L (31.0-36.0) g/dl RDW 17.1 H (11.0-16.0) % Plt Count 203 (160-400) X10*3/uL MPV 10.4 (9.4-12.4) fL Immature Gran % (Auto) 0.5 H (0.0-0.4) % Neut % (Auto) 67.4 (45-73) % Lymph % (Auto) 18.3 L (20-40) % Gordon % (Auto) 12.5 H (2-11) % Eos % (Auto) 0.2 (0-4) % Baso % (Auto) 1.1 (0-2) % Lymph # (Auto) 1.1 L (1.2-4.9) X10*3/uL Gordon # (Auto) 0.8 (0.1-1.2) X10*3/uL Eos # (Auto) 0.0 (0.0-0.4) X10*3/uL Baso # (Auto) 0.1 (0.0-0.2) X10*3/uL Abs Immat Gran (auto) 0.03 (0.00-0.03) X10*3/uL Absolute Neuts (auto) 4.2 (2.0-8.3) x10*3/uL Absolute Nucleated RBC 0.000 (0.0-0.012) X10*3/uL Nucleated RBC % (auto) 0.0 (0.0-0.2) /100WBC PT 98.7 H (11.1-13.3) SEC INR 8.1 H* (0.9-1.1) APTT 51.7 H (26.0-36.8) SEC Sodium 142 (135-145) mmol/L Potassium 3.1 L (3.3-5.1) mmol/L Chloride 102 (96-108) mmol/L Carbon Dioxide 31 H (22-29) mmol/L Anion Gap 12 (12-20) BUN 28 H (9-16) mg/dL Creatinine 1.06 (0.5-1.4) mg/dL Estim Creat Clear Calc 52.7 Estimated GFR > 60 Random Glucose 97 (60-115) mg/dL Calcium 9.1 (8.4-10.2) mg/dL Total Bilirubin 0.9 (0.0-1.0) mg/dL AST 23 (5-37) U/L ALT 13 (0-40) U/L Alkaline Phosphatase 125 H (39-117) U/L Troponin I High Sens 96.7 H 97.7 H (<3.5-35.0) ng/L B-Natriuretic Peptide 352 H (<100) pg/mL Total Protein 7.1 (6.5-8.0) g/dL Albumin 3.7 (3.5-5.0) g/dL COVID-19 (BOY) Negative (Negative) COVID-19 Clin Com See Note Independent Interpretation I performed an independent interpretation of an: EKG, Plain X-Ray and CT Scan Interpretation: My interpretation is in agreement with the radiologist's impression of these imaging studies. EXAMINATION: XR CHEST CLINICAL INFORMATION: CHF exacerbation COMPARISON: Chest x-ray May 24, 2023 TECHNIQUE: Frontal portable view of the chest was obtained. 1224 hours FINDINGS: Pacemaker leads in right atrium and right ventricle. No acute airspace disease. No pulmonary vascular congestion. There is no pleural effusion and no pneumothorax. XR/XR chest 1V IMPRESSION: No acute abnormality of chest. Dictated By: Link Rehman MD Signed By: Electronically signed by Link Rehman MD 07/11/23 1411 EXAMINATION: US VENOUS ULTRASOUND WITH DOPPLER LOWER EXTREMITY, BILATERAL CLINICAL INFORMATION: Bilateral leg swelling. Bilateral leg swelling. COMPARISON: Venous ultrasound 05/25/2023. TECHNIQUE: Ultrasound of the deep veins is performed from the hip to the calf with compression sonography and color and pulse Doppler assessment. Spectral analysis with color-flow imaging is performed. FINDINGS: RIGHT: There is normal venous compression and respiratory variation and augmented flow. The visualized common femoral vein, superficial femoral vein, profunda femoral vein, popliteal vein, and the trifurcation region shows no evidence of deep venous thrombosis. Biphasic waveforms throughout suggestive of increased right atrial pressure. 5.9 x 1.1 x 1.0 cm Linares's cyst. LEFT: There is normal venous compression and respiratory variation and augmented flow. The visualized common femoral vein, superficial femoral vein, profunda femoral vein, popliteal vein, and the trifurcation region shows no evidence of deep venous thrombosis. There is eccentric wall thickening of the gastrocnemius vein which may relate to changes from a remote DVT but does not have the appearance of an acute DVT. Biphasic waveforms throughout suggestive of increased right atrial pressure. There is no significant popliteal fossa cyst. US/US venous duplex LE BI IMPRESSION: No evidence of acute DVT in the bilateral lower extremities. Eccentric wall thickening of the left gastrocnemius vein consistent with sequela of prior DVT. Biphasic venous Doppler waveforms suggesting elevated right heart pressures. 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 Dictated By: Jamal Ang MD Signed By: Electronically signed by Jamal Ang MD 07/11/23 1339 Vent. Rate: 069 BPM Atrial Rate: 055 BPM P-R Int: 000 ms QRS Dur: 184 ms QT Int: 512 ms P-R-T Axes: 000 267 081 degrees QTc Int: 548 ms Ventricular-paced rhythm Abnormal ECG When compared with ECG of 17-MAY-2023 07:26, No significant change was found DD/ 1132 Radiology Impression Discussion of test interpretation with radiology: I have reviewed the radiologist's reading. Critical Care Time Critical Care Time Critical Care Time: Yes Total Critical Care Time: 45 Attestation: I spent 45 minutes of Critical Care Time with this patient. This does not include time spent on separately reported billable procedures. Discharge Plan Discharge Clinical Impression: Fluid overload, Elevated INR Patient Disposition: Admitted As Inpatient Interventions: Admission Worksheet (ED) Last Done: 07/11/23 15:12 Discharge Date/Time: 07/11/23 16:12
[2023-07-11 11:46] LABS: MANUAL DIFF FLAG NO
[2023-07-11 11:54] LABS: Basophils Absolute Auto 0.1 X10*3/uL (0.0-0.2); Basophils Percent Auto 1.1 % (0-2); Eosinophils Percent Auto 0.2 % (0-4); Hematocrit 35.8 % (42.0-52.0); Hemoglobin 10.9 g/dl (14.0-18.0); Imm Gran Abs Auto 0.03 X10*3/uL (0.00-0.03); Imm Gran Pct Auto 0.5 % (0.0-0.4); Lymphocytes Absolute Auto 1.1 X10*3/uL (1.2-4.9); Lymphocytes Percent Auto 18.3 % (20-40); Mean Corpuscular HGB Conc 30.4 g/dl (31.0-36.0); Mean Corpuscular Hemoglobin 28.7 pg (27.0-33.0); Mean Corpuscular Volume 94.2 fL (80.0-98.0); Mean Platelet Volume 10.4 fL (9.4-12.4); Monocytes Absolute Auto 0.8 X10*3/uL (0.1-1.2); Monocytes Percent Auto 12.5 % (2-11); Neutrophils Absolute Auto 4.2 x10*3/uL (2.0-8.3); Neutrophils Percent Auto 67.4 % (45-73); Platelet Count 203 X10*3/uL (160-400); Red Cell Distribution Width 17.1 % (11.0-16.0); White Blood Count 6.2 X10*3/uL (4.8-10.8)
[2023-07-11 11:57] LABS: Partial Thromboplastin Time 51.7 SEC (26.0-36.8)
[2023-07-11 12:01] LABS: Prothrombin Time 98.7 SEC (11.1-13.3)
[2023-07-11 12:04] LABS: INTERNATIONAL NORM RATIO 8.1 (0.9-1.1)
[2023-07-11 12:06] LABS: Alanine Aminotransferase 13 U/L (0-40); Albumin Level 3.7 g/dL (3.5-5.0); Alkaline Phosphatase 125 U/L (39-117); Anion Gap 12 (12-20); Aspartate Amino Transferase 23 U/L (5-37); Bilirubin Total 0.9 mg/dL (0.0-1.0); Blood Urea Nitrogen 28 mg/dL (9-16); Calcium 9.1 mg/dL (8.4-10.2); Carbon Dioxide 31 mmol/L (22-29); Chloride 102 mmol/L (96-108); Creatinine Clr Calc Pharmacy 52.7; Estimated Glomerular Filt Rate > 60; Glucose Random 97 mg/dL (60-115); Potassium 3.1 mmol/L (3.3-5.1); Sodium 142 mmol/L (135-145); Total Protein 7.1 g/dL (6.5-8.0)
[2023-07-11 12:11] LABS: B Type Natriuretic Peptide 352 pg/mL (<100); Troponin-I High Sensitivity 96.7 ng/L (<3.5-35.0)
[2023-07-11 12:30] LABS: COVID-19 Test Negative (Negative); IDNOW Serial# 08D9AD1C
[2023-07-11] MEDS: metOLazone 5 MG TABLET PO (13:23)
[2023-07-11] MEDS: Potassium Chloride/H20 10 MEQ/100 ML PIGGYBACK 100 MEQ IV (13:23)
[2023-07-11] MEDS: Furosemide 100 MG/10 ML VIAL 80 MG IVPUSH (13:23)
[2023-07-11 13:27] VITALS: BP 124/77; PULSE 69; RESP 18; TEMP 36.4; O2SAT 95
[2023-07-11 13:58] VITALS: BP 126/79; PULSE 68; RESP 16; TEMP 36.4; O2SAT 94
--- NOTE | 2023-07-11 14:07 | PHA.MEDREC ---
Pharmacy Consult ? Medication Reconciliation Pharmacy has completed the medication reconciliation through Rx claims and verified with patient. Pt had list but it was very outdated. Pt unreliable historian and med rec was entered based on claims and how he stated he takes his medications. Patient said he does not take docusate so it was omitted, confirmed that he is taking 80mg of furosemide daily, not 20mg. Patient also stated he does not take pantoprazole and doesn't remember fir vitamin B1 is supposed to be on his list but states he does not take vitamine B1 100 mg from claims hx. Patient also stated that he was taking warfarin 5 mg 5 days of the week and 2.5 mg the other 2 days of the week previously, but stated he is not currently taking the warfarin because of high results and the need for adjustment Pt list was incomplete and unreliable and indicated that warfarin and furosemide were changing.
--- NOTE | 2023-07-11 14:09 | PM.IMHP ---
History of Present Illness Date of Service: 07/11/23 Attending physician on admission: [facility] Chief Complaint: edema 83 year old male with history of PAF, pacemaker in place, HTN, HLD, CHF, SHALONDA, ED, tricuspid regurgitation, Prostate cancer, Bladder cancer presented to the ED earlier to evaluate swelling in the legs and scrotum. He states he was started on lasix 80mg by cardiology, Dr Davis, and states he lost 30 pounds. However, was recently hospitalized due to a fall and lasix was reduced to 60mg. States since discharge has been gaining weight (appears to be about 20 pounds per record) with increased swelling in the legs and scrotum. Has some CORNEJO but not overly bothersome. No orthopnea, PND, lightheadness, palpitations, or chest pain. No recent illness. He does not restrict fluids but states he doesnt use much sodium. However, he is drinking 3/4 gallon of milk daily (about 1200mg sodium) in addition to some soft drinks and water. On arrival VSS. Hematology studies unremarkable. Renal function baseline. Lytes normal except for K 3.1, CO2 31. Initial trop 96, repeat pending. BNP 352. INR 8.1 (has been doubling dose of lasix). Negative COVID-19. Ble venous duplex negative for acute dvt, but shows sequela of prior dvt. Biphasic doppler suggests elevated R heart pressures. CXR negative for any acute pulmonary abnormality. In the ED, given 10meq KCl IV, 5mg metolazone, and 80 mg IV lasix. Review of Systems Review of Systems: General: No fevers, malaise, unintentional weight loss HEENT: No blurred vision, diplopia. No sore throat, nasal congestion, rhinorrhea, sinus pain, ear pain Cardiovascular: No chest pain, palpitations. +ble edema, +scrotal edema Respiratory: +CORNEJO. No shortness of breath at rest, orthopnea, PND, wheezing, cough GI: No abdominal pain, nausea, vomiting, diarrhea, constipation, melena, hematochezia : No dysuria, hematuria, increased urinary frequency, decreased urinary output MSK: No myalgia, back pain Neuro: No headaches, weakness, paresthesias Skin: No rashes or lesions [facility] Medical History Nonrheumatic tricuspid (valve) insufficiency Chronic right heart failure Current use of anticoagulant therapy Anticoagulated on Coumadin Right rib fracture CHF (congestive heart failure) Nocturnal hypoxemia SHALONDA (obstructive sleep apnea) Peripheral edema Annual physical exam Left tennis elbow Essential hypertension PAF (paroxysmal atrial fibrillation) History of hydrocele Nocturia Bladder outlet obstruction Bladder cancer Prostate cancer Hyperlipidemia HTN (hypertension) Normally functioning cardiac pacemaker 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 Daughter No problems noted. Maternal Grandfather No problems noted. Maternal Grandmother No problems noted. Paternal Grandfather No problems noted. Paternal Grandmother No problems noted. Surgical History History of hydrocelectomy Hx of varicose vein stripping Hx of subdural hematoma History of phacoemulsification of cataract of both eyes with intraocular lens implantation Hx of cardiac pacemaker Hx of colonoscopy Hx of parathyroidectomy Hx of cystoscopy Social History Household Members: Spouse Housing: House Are you a primary physician primary care sports medicine to a significant other at home: No Do you presently have visiting nurse or other home services: No Alcohol intake: current Alcohol intake frequency: holidays/special occasions only Alcohol type: wine Patient Tobacco Use Status: Never used Tobacco e-Cigarette/Vaping Use: Never Used Use of substances other than those prescribed or required for medical reasons: No Currently Displaying Signs/Symptoms of Drug Intoxication Withdrawal: No Any prior treatment program specific to substance use: No Have you been hit, kicked, punched, or otherwise hurt by someone within the past year? If so, by whom?: No Do you feel safe in your current relationship?: Yes Is there a partner from a previous relationship who is making you feel unsafe now?: No Are you made to feel afraid or neglected: No [employer] Healthcare Practices: christian Advance Directives: Yes Advance Directives on File: Yes Advance Directives Date on File: 05/02/21 Do you have thoughts of harming others: None Do you have a plan to hurt others: No Plan Recently lost weight without trying: No Eating poorly because of decreased appetite: No Nutrition Risks: No Nutritional Risk service: No Current occupational status: retired Cognitive needs: No Hearing needs: No Vision needs: Yes Meds Allergies Allergy/AdvReac Type Severity Reaction Status Date / Time No Known Allergies Allergy Verified 07/10/23 13:41 Active Medications: Current Medications Acetaminophen (Acetaminophen 325 Mg Tablet) 650 mg PO Q6H PRN PRN Reason: Pain, Mild (Pain Scale 1-3) Furosemide (Furosemide 100 Mg/10 Ml Vial) 80 mg IVPUSH DAILY [facility]; Protocol Potassium Chloride (Potassium Chloride/H20) 10 meq in 100 mls @ 100 mls/hr IV Q1H SUDARSHAN Stop: 07/11/23 14:59 Last Infusion: 07/11/23 13:45 Dose: 0 mls/hr Ondansetron HCl (Ondansetron Hcl 4 Mg/2 Ml Vial) 4 mg IVPUSH Q8H PRN PRN Reason: Nausea and Vomiting Senna (Sennosides 8.6 Mg Tablet) 17.2 mg PO BEDTIME PRN PRN Reason: Constipation Sodium Chloride (0.9 % Sodium Chloride Flush 3 Ml Syringe) 3 ml IVFLUSH [facility] Home Medications Medication Instructions Recorded Confirmed Last Taken Type acetaminophen 650 mg 650 mg PO DAILY Pain 10/22/20 07/11/23 Unknown History tablet,extended release (Tylenol Arthritis Pain) multivitamin 1 tab PO DAILY 05/12/21 07/11/23 Unknown History calcium carbonate 600 mg-vitamin 1 tab PO DAILY 05/17/23 07/11/23 Unknown History D3 5 mcg (200 unit) tablet cholecalciferol (vitamin D3) 25 25 mcg PO DAILY 05/17/23 07/11/23 Unknown History mcg (1,000 unit) tablet magnesium oxide 400 mg (241.3 mg 400 mg PO DAILY 06/20/23 07/11/23 Unknown History magnesium) tablet furosemide 40 mg tablet (Lasix) 80 mg PO DAILY 06/25/23 07/11/23 Unknown History amlodipine 2.5 mg tablet 2.5 mg PO DAILY 07/11/23 07/11/23 Unknown History ferrous sulfate 325 mg (65 mg 325 mg PO DAILY 07/11/23 07/11/23 Unknown History iron) tablet lisinopril 40 mg tablet 40 mg PO DAILY 07/11/23 07/11/23 Unknown History Physical Exam Vital Signs and Narrative: Vital Signs: Last Vital Signs Temp 97.6 F 07/11/23 13:58 Pulse 68 07/11/23 13:58 Resp 16 07/11/23 13:58 BP 126/79 07/11/23 13:58 Pulse Ox 94 07/11/23 13:58 O2 Del Method Room Air 07/11/23 13:58 BMI result Body Mass Index 35.7 Constitutional - Awake and Alert, No apparent distress Eyes - PERRLA, EOMI Neck- +JVD Cardiovascular - S1S2, RRR, 4+ pitting edema ble Respiratory - Normal lung expansion, Normal respiratory effort, No respiratory distress, bibasilar crackles Gastrointestinal - NT / ND; +BS; No rebound or guarding - 3+scrotal edema Extremities - no calf tenderness bilaterally, no swelling Skin - Warm/Dry Neurological - Alert & oriented x3 Psychological - Appropriate affect Results Labs 07/11/23 11:37 07/11/23 11:37 Labs: Laboratory Results - last 24 hr 07/11/23 11:37 MCV 94.2 MCH 28.7 MCHC 30.4 L RDW 17.1 H Plt Count 203 MPV 10.4 Immature Gran % (Auto) 0.5 H Neut % (Auto) 67.4 Lymph % (Auto) 18.3 L Cassia % (Auto) 12.5 H Eos % (Auto) 0.2 Baso % (Auto) 1.1 Lymph # (Auto) 1.1 L Cassia # (Auto) 0.8 Eos # (Auto) 0.0 Baso # (Auto) 0.1 Abs Immat Gran (auto) 0.03 Absolute Neuts (auto) 4.2 Absolute Nucleated RBC 0.000 Nucleated RBC % (auto) 0.0 PT 98.7 H INR 8.1 H* APTT 51.7 H Anion Gap 12 Estim Creat Clear Calc 52.7 Estimated GFR > 60 Random Glucose 97 Calcium 9.1 Total Bilirubin 0.9 AST 23 ALT 13 Alkaline Phosphatase 125 H B-Natriuretic Peptide 352 H Total Protein 7.1 Albumin 3.7 COVID-19 (BOY) Negative COVID-19 Clin Com See Note Imaging Radiologist's Impressions: Impressions Venous Duplex 07/11/23 12:10 IMPRESSION: No evidence of acute DVT in the bilateral lower extremities. Eccentric wall thickening of the left gastrocnemius vein consistent with sequela of prior DVT. Biphasic venous Doppler waveforms suggesting elevated right heart pressures. 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 Assessment and Plan (1) CHF exacerbation: Status: Acute (2) Elevated INR: Status: Acute (3) Nonrheumatic tricuspid (valve) insufficiency: Status: Acute Plan 83 year old male with history of PAF, pacemaker in place, HTN, HLD, CHF, SHALONDA, ED, tricuspid regurgitation, Prostate cancer, Bladder cancer admitted for management of CHF exacebration #Acute CHF exacerbation -+JVD, scrotal edema, venous doppler suggestive of elevated R heart pressures -80mg IV lasix -Add 5mg metolazone daily per Dr. Davis -Strict I&O -Daily weights -Cardiac diet -update echo -cardiology consult -counseled on fluid restrictions and low sodium diet -follow renal fx, lytes, and trend bnp #Elevated troponins -likely due to above -echo -cardiology consult -monitor on telemetry #Tricuspid regurgitation -likely contributing to CHF above -cardiology consult -update echo #Hypokakemia -likely due to diuresis -repleted. Follow lytes #Supratherapuetic INR -INR 8.1. Vitamin K not indicated at this time. -Hold coumadin -Follow INR daily #HTN -bp reasonably controlled -continue home meds #Paroxysmal atrial fibrillation -hold coumadin given supratherapeutic INR -not on rate control medication #SHALONDA -not yet on cpap #HLD -statin DVt prophylaxis- scps- inr supratherapeutic, resume as appropriate Full code Pt requires inpt stay at least 2 midnights for IV diuresis for management of significant volume overload secondary to congestive heart failure and will require close monitoring of renal function, electrolytes, and I&O. Quality Stroke Does the patient have a stroke diagnosis?: No VTE Prior VTE?: No VTE Risk Level:: Medical - moderate - high VTE Device Contraindication: Treatment Not Indicated VTE Drug Contraindication: N/A - Med Ordered
[2023-07-11 14:23] LABS: Troponin-I High Sensitivity 97.7 ng/L (<3.5-35.0)
[2023-07-11] MEDS: Potassium Chloride Packet 20 MEQ PACKET 40 MEQ PO (15:18)
[2023-07-11 16:31] VITALS: BP 127/80; PULSE 73; RESP 18; TEMP 36.7; O2SAT 93
[2023-07-11] MEDS: 0.9 % Sodium Chloride Flush 3 ML SYRINGE IVFLUSH ×2 (16:40→20:11)
[2023-07-11 16:41] VITALS: BMI 36.3
[2023-07-11 19:13] VITALS: BP 132/67; PULSE 69; RESP 18; TEMP 36.7; O2SAT 97
[2023-07-11] MEDS: Tamsulosin HCL 0.4 MG CAPSULE PO (20:10)
[2023-07-11 23:59] VITALS: BP 123/78; PULSE 69; RESP 16; TEMP 37.1; O2SAT 96
[2023-07-12 04:00] VITALS: BP 111/58; PULSE 70; RESP 16; TEMP 37.5
[2023-07-12 06:52] LABS: MANUAL DIFF FLAG NO
[2023-07-12 06:59] LABS: Basophils Absolute Auto 0.1 X10*3/uL (0.0-0.2); Hematocrit 31.9 % (42.0-52.0); Lymphocytes Absolute Auto 1.6 X10*3/uL (1.2-4.9); Lymphocytes Percent Auto 23.2 % (20-40); Mean Corpuscular HGB Conc 31.3 g/dl (31.0-36.0); Mean Corpuscular Hemoglobin 28.8 pg (27.0-33.0); Mean Corpuscular Volume 91.9 fL (80.0-98.0); Mean Platelet Volume 10.6 fL (9.4-12.4); Monocytes Absolute Auto 0.9 X10*3/uL (0.1-1.2); Monocytes Percent Auto 13.6 % (2-11); Neutrophils Absolute Auto 4.2 x10*3/uL (2.0-8.3); Neutrophils Percent Auto 62.2 % (45-73); Platelet Count 170 X10*3/uL (160-400); Red Blood Count 3.47 X10*6/uL (4.60-5.80); Red Cell Distribution Width 17.2 % (11.0-16.0); White Blood Count 6.7 X10*3/uL (4.8-10.8)
[2023-07-12 07:14] LABS: Prothrombin Time 70.7 SEC (11.1-13.3)
[2023-07-12 07:17] LABS: B Type Natriuretic Peptide 397 pg/mL (<100)
[2023-07-12 07:21] VITALS: BP 107/64; PULSE 69; RESP 20; TEMP 37.1; O2SAT 95
[2023-07-12 07:25] LABS: Anion Gap 15 (12-20); Blood Urea Nitrogen 26 mg/dL (9-16); Calcium 8.9 mg/dL (8.4-10.2); Carbon Dioxide 31 mmol/L (22-29); Chloride 98 mmol/L (96-108); Creatinine Clr Calc Pharmacy 59.4; Estimated Glomerular Filt Rate > 60; Glucose Random 86 mg/dL (60-115); Potassium 2.6 mmol/L (3.3-5.1); Sodium 141 mmol/L (135-145)
[2023-07-12 07:37] LABS: INTERNATIONAL NORM RATIO 5.8 (0.9-1.1)
[2023-07-12 08:13] LABS: Magnesium 1.9 mg/dL (1.6-2.6)
--- NOTE | 2023-07-12 08:36 | MHC.CM.PN ---
IMM 2. Pt lives at home with his , self-care, uses a cane and walker. Pts will transport him home. DCP: return home self-care. HCP copy requested. PCP: Dr. Minnie Lowe
[2023-07-12] MEDS: Potassium Chloride ER 20 MEQ TAB.ER.PRT 40 MEQ PO ×3 (09:16→14:56)
[2023-07-12] MEDS: Cholecalciferol (Vitamin D3) 25 MCG TABLET PO (09:16)
[2023-07-12] MEDS: Ferrous Sulfate 324 MG TABLET.DR PO (09:16)
[2023-07-12] MEDS: lisinopriL 40 MG TABLET PO (09:16)
[2023-07-12] MEDS: amLODIPine Besylate 2.5 MG TABLET PO (09:16)
[2023-07-12] MEDS: Calcium + Vitamin D 250 MG TABLET 500 MG PO (09:17)
[2023-07-12] MEDS: Magnesium Oxide 400 MG TABLET PO (09:17)
[2023-07-12] MEDS: Multivitamin TABLET 1 TAB PO (09:17)
[2023-07-12] MEDS: Furosemide 100 MG/10 ML VIAL 80 MG IVPUSH (09:20)
[2023-07-12] MEDS: 0.9 % Sodium Chloride Flush 3 ML SYRINGE IVFLUSH ×2 (09:20→14:56)
--- NOTE | 2023-07-12 10:22 | P.CONCA_ITS ---
History of Present Illness History of Present Illness Date of Service: 07/12/23 Requesting physician: [facility] Consult reason: congestive heart failure Chief complaint: CHF exacerbation Narrative: I was consulted to see Jung in cardiology consultation today for congestive heart failure hospitalization. 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 He is on chronic high dose of Lasix at home for right heart failure. Patient came to the hospital with progressive leg swelling, scrotal swelling. He has not noticed much abdominal distension. However he is notice exertional shortness of breath when he climbs 3/4 of his stairs. He denies any significant orthopnea, PND. He denies any palpitations, lightheadedness, syncope. He came to the hospital was noted to have elevated BNP with significant right heart failure findings. His EKG shows ventricular paced rhythm. Underlying atrial rhythm is unclear could be atrial fibrillation. He said he feels better with leg swelling much improved since yesterday. Has a negative balance of 1300 cc. His creatinine is stable. He was also noted to be significantly elevated INR, he thinks this is due to his Ms. Taking taking warfarin therapy. Review of Systems 2 Constitutional: Constitutional: Reports poor appetite, Reports weakness and Reports weight gain Eyes: Eyes: Reports no additional eye complaints Cardiovascular: Cardiovascular: Reports Abdominal Distension, Denies chest pain, Denies rapid heart rate, Reports leg edema, Denies lightheadedness, Denies Loss of Consciousness, Denies palpitations and Reports dyspnea on exertion Respiratory: Respiratory: Reports dyspnea on exertion Gastrointestinal: Gastrointestinal: Reports no additional gastrointestinal complaints Genitourinary: Genitourinary: Reports scrotal swelling Integumentary/Breasts: Skin/Breast: Reports system reviewed and no additional complaints, except as docu Neurologic: Reports system reviewed and no additional complaints, except as documented and Reports weakness Psychiatric: Psychiatric: Reports no additional psychiatric complaints Endocrine: Endocrine: Denies palpitations PMFSH Past Medical History Medical History Nonrheumatic tricuspid (valve) insufficiency Chronic right heart failure Current use of anticoagulant therapy Anticoagulated on Coumadin Right rib fracture CHF (congestive heart failure) Nocturnal hypoxemia SHALONDA (obstructive sleep apnea) Peripheral edema Annual physical exam Left tennis elbow Essential hypertension PAF (paroxysmal atrial fibrillation) History of hydrocele Nocturia Bladder outlet obstruction Bladder cancer Prostate cancer Hyperlipidemia HTN (hypertension) 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 Daughter No problems noted. Maternal Grandfather No problems noted. Maternal Grandmother No problems noted. Paternal Grandfather No problems noted. Paternal Grandmother No problems noted. Surgical History Surgical History History of hydrocelectomy Hx of varicose vein stripping Hx of subdural hematoma History of phacoemulsification of cataract of both eyes with intraocular lens implantation Hx of cardiac pacemaker Hx of colonoscopy Hx of parathyroidectomy Hx of cystoscopy Social History Social History Household Members: Spouse Housing: House Are you a primary healthcare administrator to a significant other at home: No Do you presently have visiting nurse or other home services: No Alcohol intake: current Alcohol intake frequency: holidays/special occasions only Alcohol type: wine Patient Tobacco Use Status: Never used Tobacco e-Cigarette/Vaping Use: Never Used Use of substances other than those prescribed or required for medical reasons: No Currently Displaying Signs/Symptoms of Drug Intoxication Withdrawal: No Any prior treatment program specific to substance use: No Have you been hit, kicked, punched, or otherwise hurt by someone within the past year? If so, by whom?: No Do you feel safe in your current relationship?: Yes Is there a partner from a previous relationship who is making you feel unsafe now?: No Are you made to feel afraid or neglected: No Anabaptism Healthcare Practices: pentecostalism Advance Directives: Yes Advance Directives on File: Yes Advance Directives Date on File: 05/02/21 Do you have thoughts of harming others: None Do you have a plan to hurt others: No Plan Recently lost weight without trying: No Eating poorly because of decreased appetite: No Nutrition Risks: No Nutritional Risk service: No Current occupational status: retired Cognitive needs: No Hearing needs: No Vision needs: Yes Meds Allergies Allergy/AdvReac Type Severity Reaction Status Date / Time No Known Allergies Allergy Verified 07/10/23 13:41 Active Medications: Current Medications Acetaminophen (Acetaminophen 325 Mg Tablet) 650 mg PO Q6H PRN PRN Reason: Pain, Mild (Pain Scale 1-3) Amlodipine Besylate (Amlodipine Besylate 2.5 Mg Tablet) 2.5 mg PO DAILY [facility]; Protocol Last Admin: 07/12/23 09:16 Dose: 2.5 mg Calcium Carbonate/Cholecalciferol (Calcium + Vitamin D 250 Mg Tablet) 500 mg PO DAILY [facility] Last Admin: 07/12/23 09:17 Dose: 500 mg Ferrous Sulfate (Ferrous Sulfate 324 Mg Tablet.Dr) 324 mg PO DAILY [facility] Last Admin: 07/12/23 09:16 Dose: 324 mg Furosemide 200 mg/ Sodium (Chloride) 100 mls @ 2.5 mls/hr IVCONT .Q24H [facility] Lisinopril (Lisinopril 40 Mg Tablet) 40 mg PO DAILY [facility]; Protocol Last Admin: 07/12/23 09:16 Dose: 40 mg Magnesium Oxide (Magnesium Oxide 400 Mg Tablet) 400 mg PO DAILY [facility] Last Admin: 07/12/23 09:17 Dose: 400 mg Metolazone (Metolazone 5 Mg Tablet) 5 mg PO DAILY [facility] Multivitamins/Vitamin C (Multivitamin Tablet) 1 tab PO DAILY [facility] Last Admin: 07/12/23 09:17 Dose: 1 tab Ondansetron HCl (Ondansetron Hcl 4 Mg/2 Ml Vial) 4 mg IVPUSH Q8H PRN PRN Reason: Nausea and Vomiting Potassium Chloride (Potassium Chloride Er 20 Meq Tab.Er.Prt) 40 meq PO Q6H [facility] Stop: 07/12/23 13:31 Last Admin: 07/12/23 09:16 Dose: 40 meq Senna (Sennosides 8.6 Mg Tablet) 17.2 mg PO BEDTIME PRN PRN Reason: Constipation Sodium Chloride (0.9 % Sodium Chloride Flush 3 Ml Syringe) 3 ml IVFLUSH QSHIFT [facility] Last Admin: 07/12/23 09:20 Dose: 3 ml Tamsulosin HCl (Tamsulosin Hcl 0.4 Mg Capsule) 0.4 mg PO BEDTIME [facility] Last Admin: 07/11/23 20:10 Dose: 0.4 mg Vitamin D (Cholecalciferol (Vitamin D3) 25 Mcg Tablet) 25 mcg PO DAILY [facility] Last Admin: 07/12/23 09:16 Dose: 25 mcg Home Medications Medication Instructions Recorded Confirmed Last Taken Type acetaminophen 650 mg 650 mg PO DAILY Pain 10/22/20 07/11/23 Unknown History tablet,extended release (Tylenol Arthritis Pain) multivitamin 1 tab PO DAILY 05/12/21 07/11/23 Unknown History calcium carbonate 600 mg-vitamin 1 tab PO DAILY 05/17/23 07/11/23 Unknown History D3 5 mcg (200 unit) tablet cholecalciferol (vitamin D3) 25 25 mcg PO DAILY 05/17/23 07/11/23 Unknown History mcg (1,000 unit) tablet magnesium oxide 400 mg (241.3 mg 400 mg PO DAILY 06/20/23 07/11/23 Unknown History magnesium) tablet furosemide 40 mg tablet (Lasix) 80 mg PO DAILY 06/25/23 07/11/23 Unknown History amlodipine 2.5 mg tablet 2.5 mg PO DAILY 07/11/23 07/11/23 Unknown History ferrous sulfate 325 mg (65 mg 325 mg PO DAILY 07/11/23 07/11/23 Unknown History iron) tablet lisinopril 40 mg tablet 40 mg PO DAILY 07/11/23 07/11/23 Unknown History Physical Exam 2 Vital Signs: Vital Signs: Last Vital Signs Temp 98.7 F 07/12/23 07:21 Pulse 69 07/12/23 07:21 Resp 20 07/12/23 07:21 BP 107/64 07/12/23 07:21 Pulse Ox 95 07/12/23 07:21 O2 Del Method Room Air 07/12/23 07:21 BMI result Body Mass Index 36.3 Const: General: cooperative, comfortable, no acute distress, alert and awake Nutritional Appearance: obese Orientation/consciousness: patient oriented x3 Limitations: no limitations HEENT: Head: Yes normocephalic and Yes atraumatic Neck: Neck: Yes trachea midline, Yes supple and Yes JVD Resp: Effort & Inspection: normal respiratory effort Auscultation: crackles bilateral at the base Cardio: Jugular venous distension: JVD Rate: regular rate Rhythm: r egular rhythm Heart sounds: S1 normal heart sound present, S2 normal heart sound present, no click, no gallops and Murmur heart sound present systolic GI: Inspection: Yes distended Auscultation: normal bowel sounds Skin: General skin exam: no rashes or lesions noted and ecchymosis Neuro: General: patient oriented x3 and no focal motor deficits Extrem: General: No clubbing, No cyanosis and Yes edema Objective Labs and Meds 07/12/23 06:11 07/12/23 06:11 Lab results: Laboratory Results - last 24 hr 07/11/23 07/11/23 07/12/23 11:37 13:57 06:11 WBC 6.2 6.7 RBC 3.80 L 3.47 L Hgb 10.9 L 10.0 L Hct 35.8 L 31.9 L MCV 94.2 91.9 MCH 28.7 28.8 MCHC 30.4 L 31.3 RDW 17.1 H 17.2 H Plt Count 203 170 MPV 10.4 10.6 Immature Gran % (Auto) 0.5 H 0.0 Neut % (Auto) 67.4 62.2 Lymph % (Auto) 18.3 L 23.2 Guthrie % (Auto) 12.5 H 13.6 H Eos % (Auto) 0.2 0.0 Baso % (Auto) 1.1 1.0 Lymph # (Auto) 1.1 L 1.6 Guthrie # (Auto) 0.8 0.9 Eos # (Auto) 0.0 0.0 Baso # (Auto) 0.1 0.1 Abs Immat Gran (auto) 0.03 0.00 Absolute Neuts (auto) 4.2 4.2 Absolute Nucleated RBC 0.000 0.000 Nucleated RBC % (auto) 0.0 0.0 PT 98.7 H 70.7 H D INR 8.1 H* 5.8 H* D APTT 51.7 H Sodium 142 141 Potassium 3.1 L 2.6 L* Chloride 102 98 Carbon Dioxide 31 H 31 H Anion Gap 12 15 BUN 28 H 26 H Creatinine 1.06 0.95 Estim Creat Clear Calc 52.7 59.4 Estimated GFR > 60 > 60 Random Glucose 97 86 Calcium 9.1 8.9 Magnesium 1.9 Total Bilirubin 0.9 AST 23 ALT 13 Alkaline Phosphatase 125 H Troponin I High Sens 96.7 H 97.7 H B-Natriuretic Peptide 352 H 397 H Total Protein 7.1 Albumin 3.7 COVID-19 (BOY) Negative COVID-19 Clin Com See Note EKG shows ventricular paced rhythm Imaging Radiologist's impression: Impressions Venous Duplex 07/11/23 12:10 IMPRESSION: No evidence of acute DVT in the bilateral lower extremities. Eccentric wall thickening of the left gastrocnemius vein consistent with sequela of prior DVT. Biphasic venous Doppler waveforms suggesting elevated right heart pressures. 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 Chest X-Ray 07/11/23 12:15 IMPRESSION: No acute abnormality of chest. Assessment and Plan (1) CHF exacerbation: Status: Acute Patient with CHF exacerbation predominantly right-sided heart failure. Continues to remain significantly fluid overloaded at this time. Continue Lasix both switch to IV Lasix drip at 5 mg an hour. Also give metolazone 2.5 mg as he has some component of cardiorenal syndrome. Strict intake and output chart needs to be pursued. Continue to monitor electrolytes and renal function. Replace electrolytes as needed. Continue trend BNP. Most likely cause for a right heart failure seems to be RV dysfunction and persistent atrial fibrillation. I am not sure if tricuspid regurgitation is contributing to his symptoms. Will review the echocardiogram once it is available to be reviewed. (2) Pacemaker: Status: Acute Biotronik pacemaker in place seems to be working and pacing in the ventricle appropriately although there is no atrial pacing and appears patient might be in persistent atrial fibrillation. Unknown duration. Will have the pacemaker company interrogate the device. (3) PAF (paroxysmal atrial fibrillation): Status: Acute Atrial fibrillation, rate controlled. May be more persistent rather than paroxysmal at this point in time. On warfarin for long time but came with significantly elevated INR. Dangers of warfarin therapy in variant [place] INRs was discussed with him. Consider switching to direct oral anticoagulant. Would consider Eliquis 5 mg b.i.d. once the INR is below 2 and creatinine is less than 1.5. Will follow with you. Procedures Date of Service Date of Service: 07/12/23
--- NOTE | 2023-07-12 10:23 | HO.PM.IMPN ---
Subjective Subjective Date of Service: 07/12/23 Interval History: f/u on fluid overload chf, he remains highly fluid overloaded, potassium is low this morning and didn't tolerate IV Overall swelling is better in the the legs, no sob Physical Exam Vital Signs: Vital Signs: Last Vital Signs Temp 98.7 F 07/12/23 07:21 Pulse 69 07/12/23 07:21 Resp 20 07/12/23 07:21 BP 107/64 07/12/23 07:21 Pulse Ox 95 07/12/23 07:21 O2 Del Method Room Air 07/12/23 07:21 BMI result Body Mass Index 36.3 Constitutional - Awake and Alert, No apparent distress Eyes - PERRLA, EOMI Neck- +JVD Cardiovascular - S1S2, RRR, fabio 3+ pitting edema Respiratory - Normal lung expansion, Normal respiratory effort, No respiratory distress, bibasilar crackles Gastrointestinal - NT / ND; +BS; No rebound or guarding - 3+scrotal edema Extremities - no calf tenderness bilaterally, no swelling Skin - Warm/Dry Neurological - Alert & oriented x3 Psychological - Appropriate affect Objective Data Active Medications Acetaminophen (Acetaminophen 325 Mg Tablet) 650 mg PO Q6H PRN PRN Reason: Pain, Mild (Pain Scale 1-3) Amlodipine Besylate (Amlodipine Besylate 2.5 Mg Tablet) 2.5 mg PO DAILY [facility]; Protocol Last Admin: 07/12/23 09:16 Dose: 2.5 mg Documented By: MACEY Calcium Carbonate/Cholecalciferol (Calcium + Vitamin D 250 Mg Tablet) 500 mg PO DAILY [facility] Last Admin: 07/12/23 09:17 Dose: 500 mg Documented By: MACEY Ferrous Sulfate (Ferrous Sulfate 324 Mg Tablet.Dr) 324 mg PO DAILY [facility] Last Admin: 07/12/23 09:16 Dose: 324 mg Documented By: MACEY Furosemide 200 mg/ Sodium (Chloride) 100 mls @ 2.5 mls/hr IVCONT .Q24H [facility] Lisinopril (Lisinopril 40 Mg Tablet) 40 mg PO DAILY [facility]; Protocol Last Admin: 07/12/23 09:16 Dose: 40 mg Documented By: MACEY Magnesium Oxide (Magnesium Oxide 400 Mg Tablet) 400 mg PO DAILY [facility] Last Admin: 07/12/23 09:17 Dose: 400 mg Documented By: MACEY Metolazone (Metolazone 5 Mg Tablet) 5 mg PO DAILY [facility] Multivitamins/Vitamin C (Multivitamin Tablet) 1 tab PO DAILY [facility] Last Admin: 07/12/23 09:17 Dose: 1 tab Documented By: MACEY Ondansetron HCl (Ondansetron Hcl 4 Mg/2 Ml Vial) 4 mg IVPUSH Q8H PRN PRN Reason: Nausea and Vomiting Potassium Chloride (Potassium Chloride Er 20 Meq Tab.Er.Prt) 40 meq PO Q6H [facility] Stop: 07/12/23 13:31 Last Admin: 07/12/23 09:16 Dose: 40 meq Documented By: MACEY Senna (Sennosides 8.6 Mg Tablet) 17.2 mg PO BEDTIME PRN PRN Reason: Constipation Sodium Chloride (0.9 % Sodium Chloride Flush 3 Ml Syringe) 3 ml IVFLUSH QSHIFT [facility] Last Admin: 07/12/23 09:20 Dose: 3 ml Documented By: MACEY Tamsulosin HCl (Tamsulosin Hcl 0.4 Mg Capsule) 0.4 mg PO BEDTIME [facility] Last Admin: 07/11/23 20:10 Dose: 0.4 mg Documented By: TOCKULWINDER Vitamin D (Cholecalciferol (Vitamin D3) 25 Mcg Tablet) 25 mcg PO DAILY [facility] Last Admin: 07/12/23 09:16 Dose: 25 mcg Documented By: MACEY Labs 07/12/23 06:11 07/12/23 06:11 Labs: Laboratory Results - last 24 hr 07/11/23 07/12/23 11:37 06:11 MCV 94.2 91.9 MCH 28.7 28.8 MCHC 30.4 L 31.3 RDW 17.1 H 17.2 H Plt Count 203 170 MPV 10.4 10.6 Immature Gran % (Auto) 0.5 H 0.0 Neut % (Auto) 67.4 62.2 Lymph % (Auto) 18.3 L 23.2 Mcclain % (Auto) 12.5 H 13.6 H Eos % (Auto) 0.2 0.0 Baso % (Auto) 1.1 1.0 Lymph # (Auto) 1.1 L 1.6 [place]clain # (Auto) 0.8 0.9 Eos # (Auto) 0.0 0.0 Baso # (Auto) 0.1 0.1 Abs Immat Gran (auto) 0.03 0.00 Absolute Neuts (auto) 4.2 4.2 Absolute Nucleated RBC 0.000 0.000 Nucleated RBC % (auto) 0.0 0.0 PT 98.7 H 70.7 H D INR 8.1 H* 5.8 H* D APTT 51.7 H Anion Gap 12 15 Estim Creat Clear Calc 52.7 59.4 Estimated GFR > 60 > 60 Random Glucose 97 86 Calcium 9.1 8.9 Magnesium 1.9 Total Bilirubin 0.9 AST 23 ALT 13 Alkaline Phosphatase 125 H B-Natriuretic Peptide 352 H 397 H Total Protein 7.1 Albumin 3.7 COVID-19 (BOY) Negative COVID-19 Clin Com See Note Assessment and Plan (1) CHF exacerbation: Status: Acute (2) Elevated INR: Status: Acute Plan 83 year old male with history of PAF, pacemaker in place, HTN, HLD, CHF, SHALONDA, ED, tricuspid regurgitation, Prostate cancer, Bladder cancer admitted for management of CHF exacebration #Acute diastolic CHF exacerbation, last echo 08/31 EF 65%, markedly fluid, neg 1.3 L overnight -changed to IV Lasis drip -continue Metolazone -salt/water restriction, daily weight, chf education, -repeat echo -follow Bmp and correct as needed # HypOkalemia d/t diuretics, replace oraly, didn't tolerate iv #Elevated troponins, type 2 mi from acute heart failure #Tricuspid regurgitation -likely contributing to CHF above -update echo #Supratherapuetic INR, 8.1--> 5.8 today, resume coumadin when INR 2 or < 2 and consider possibility of changing to eliquis or xarelto -Follow INR daily #HTN--continue present meds #Paroxysmal atrial fibrillation, pacemaker interogation today #SHALONDA -not yet on cpap #HLD -statin DVt prophylaxis- scps- inr supratherapeutic, resume as appropriate Full code need for inptient: IV diuretics for acute heart failure and frequent electrolyte check re replacement and need for cardiac monitoring Quality Stroke Does the patient have a stroke diagnosis?: No VTE Prior VTE?: No VTE Risk Level:: Medical - moderate - high VTE Device Contraindication: Treatment Not Indicated VTE Drug Contraindication: N/A - Med Ordered
--- NOTE | 2023-07-12 11:00 | PC.NURSE ---
Assumed care for this pt at this time
[2023-07-12 11:28] VITALS: BP 99/52; PULSE 69; RESP 20; TEMP 36.6; O2SAT 95
[2023-07-12] MEDS: Furosemide 200 MG in 0.9 % Sodium Chloride 80 ML IVCONT (12:03)
[2023-07-12] MEDS: metOLazone 5 MG TABLET PO (12:03)
[2023-07-12 13:36] LABS: Anion Gap 14 (12-20); Carbon Dioxide 35 mmol/L (22-29); Chloride 93 mmol/L (96-108); Potassium 2.9 mmol/L (3.3-5.1); Sodium 139 mmol/L (135-145)
[2023-07-12 15:31] VITALS: BP 116/63; PULSE 69; RESP 19; TEMP 36.8; O2SAT 96
[2023-07-12 19:44] VITALS: BP 104/62; PULSE 72; RESP 19; TEMP 37.1; O2SAT 92
[2023-07-12] MEDS: Tamsulosin HCL 0.4 MG CAPSULE PO (20:08)
[2023-07-12 23:09] VITALS: BP 110/66; PULSE 69; RESP 20; TEMP 36.6; O2SAT 93
--- NOTE | 2023-07-12 23:21 | PC.RT ---
Patient refuses Cpap/Bipap. Patient attempted several times with a few adjustments to attempt to increase compliance. Patient states he cannot tolerate the mask. He will let staff know of he changes his mind. Vurrent vitals HR 68, RR 16, Spo2 96 on room air. Patient has pulse ox transmitted to nursing station.
[2023-07-13 03:21] LABS: Anion Gap 13 (12-20); Blood Urea Nitrogen 34 mg/dL (9-16); Calcium 8.9 mg/dL (8.4-10.2); Carbon Dioxide 37 mmol/L (22-29); Chloride 94 mmol/L (96-108); Creatinine Clr Calc Pharmacy 45.5; Estimated Glomerular Filt Rate 55; Glucose Random 93 mg/dL (60-115); Magnesium 1.8 mg/dL (1.6-2.6); Potassium 3.2 mmol/L (3.3-5.1); Sodium 141 mmol/L (135-145)
[2023-07-13 03:39] VITALS: BP 101/57; PULSE 75; RESP 18; TEMP 36.7; O2SAT 93
[2023-07-13] MEDS: Potassium Chloride Packet 20 MEQ PACKET 40 MEQ PO (04:34)
[2023-07-13 06:19] VITALS: BMI 34.4
[2023-07-13 07:12] VITALS: BP 96/52; PULSE 69; RESP 18; TEMP 37.4; O2SAT 98
[2023-07-13] MEDS: Ferrous Sulfate 324 MG TABLET.DR PO (07:55)
[2023-07-13] MEDS: Multivitamin TABLET 1 TAB PO (07:55)
[2023-07-13] MEDS: Potassium Chloride ER 20 MEQ TAB.ER.PRT 40 MEQ PO (07:55)
[2023-07-13] MEDS: amLODIPine Besylate 2.5 MG TABLET PO (07:55)
[2023-07-13] MEDS: lisinopriL 40 MG TABLET PO (07:55)
[2023-07-13] MEDS: Calcium + Vitamin D 250 MG TABLET 500 MG PO (07:55)
[2023-07-13] MEDS: Cholecalciferol (Vitamin D3) 25 MCG TABLET PO (07:55)
[2023-07-13] MEDS: 0.9 % Sodium Chloride Flush 3 ML SYRINGE IVFLUSH ×3 (07:56→20:12)
[2023-07-13] MEDS: metOLazone 5 MG TABLET PO (07:56)
[2023-07-13] MEDS: Magnesium Oxide 400 MG TABLET PO (07:56)
--- NOTE | 2023-07-13 10:38 | P.PNIM_ITS ---
Subjective Subjective Date of Service: 07/13/23 Interval History: f/u on fluid overload chf. His breathing is more comfortable and notes less swelling in the leg, but doesn't appreciate change in scrotal edema Physical Exam 2 Vital Signs: Vital Signs: Last Vital Signs Temp 99.3 F 07/13/23 07:12 Pulse 69 07/13/23 07:12 Resp 18 07/13/23 07:12 BP 96/52 L 07/13/23 07:12 Pulse Ox 98 07/13/23 07:12 O2 Del Method Nasal Cannula 07/13/23 07:12 O2 Flow Rate 2 07/13/23 07:12 BMI result Body Mass Index 34.4 Constitutional - Awake and Alert, No apparent distress Eyes - PERRLA, EOMI Neck- +JVD Cardiovascular - S1S2, RRR, fabio 2+ pitting edema Respiratory - Normal lung expansion, Normal respiratory effort, No respiratory distress, bibasilar crackles Gastrointestinal - NT / ND; +BS; No rebound or guarding - 3+scrotal edema Extremities - no calf tenderness bilaterally, no swelling Skin - Warm/Dry Neurological - Alert & oriented x3 Psychological - Appropriate affect Objective Data Active Medications Acetaminophen (Acetaminophen 325 Mg Tablet) 650 mg PO Q6H PRN PRN Reason: Pain, Mild (Pain Scale 1-3) Amlodipine Besylate (Amlodipine Besylate 2.5 Mg Tablet) 2.5 mg PO DAILY [facility]; Protocol Last Admin: 07/13/23 07:55 Dose: 2.5 mg Documented By: ZULY Calcium Carbonate/Cholecalciferol (Calcium + Vitamin D 250 Mg Tablet) 500 mg PO DAILY [facility] Last Admin: 07/13/23 07:55 Dose: 500 mg Documented By: ZULY Ferrous Sulfate (Ferrous Sulfate 324 Mg Tablet.Dr) 324 mg PO DAILY [facility] Last Admin: 07/13/23 07:55 Dose: 324 mg Documented By: ZULY Furosemide 200 mg/ Sodium (Chloride) 100 mls @ 2.5 mls/hr IVCONT .Q24H [facility] Last Admin: 07/12/23 12:03 Dose: 5 mg/hr, 2.5 mls/hr Documented By: ZULY Lisinopril (Lisinopril 40 Mg Tablet) 40 mg PO DAILY [facility]; Protocol Last Admin: 07/13/23 07:55 Dose: 40 mg Documented By: ZULY Magnesium Oxide (Magnesium Oxide 400 Mg Tablet) 400 mg PO DAILY [facility] Last Admin: 07/13/23 07:56 Dose: 400 mg Documented By: ZULY Metolazone (Metolazone 5 Mg Tablet) 5 mg PO DAILY [facility] Last Admin: 07/13/23 07:56 Dose: 5 mg Documented By: ZULY Multivitamins/Vitamin C (Multivitamin Tablet) 1 tab PO DAILY [facility] Last Admin: 07/13/23 07:55 Dose: 1 tab Documented By: ZULY Ondansetron HCl (Ondansetron Hcl 4 Mg/2 Ml Vial) 4 mg IVPUSH Q8H PRN PRN Reason: Nausea and Vomiting Potassium Chloride (Potassium Chloride Er 20 Meq Tab.Er.Prt) 40 meq PO DAILY [facility] Last Admin: 07/13/23 07:55 Dose: 40 meq Documented By: ZULY Senna (Sennosides 8.6 Mg Tablet) 17.2 mg PO BEDTIME PRN PRN Reason: Constipation Sodium Chloride (0.9 % Sodium Chloride Flush 3 Ml Syringe) 3 ml IVFLUSH QSHIFT [facility] Last Admin: 07/13/23 07:56 Dose: 3 ml Documented By: ZULY Tamsulosin HCl (Tamsulosin Hcl 0.4 Mg Capsule) 0.4 mg PO BEDTIME [facility] Last Admin: 07/12/23 20:08 Dose: 0.4 mg Documented By: JEAN Vitamin D (Cholecalciferol (Vitamin D3) 25 Mcg Tablet) 25 mcg PO DAILY [facility] Last Admin: 07/13/23 07:55 Dose: 25 mcg Documented By: ZULY Labs 07/12/23 06:11 07/13/23 02:58 Labs: Laboratory Results - last 24 hr 07/12/23 07/13/23 12:41 02:58 Hold Purple Top SEE NOTE Anion Gap 14 13 Estim Creat Clear Calc 45.5 Estimated GFR 55 Random Glucose 93 Calcium 8.9 Magnesium 1.8 Assessment and Plan (1) CHF exacerbation: Status: Acute (2) Elevated INR: Status: Acute Plan 83 year old male with history of PAF, pacemaker in place, HTN, HLD, CHF, SHALONDA, ED, tricuspid regurgitation, Prostate cancer, Bladder cancer admitted for management of CHF exacebration #Acute systolic CHF exacerbation, echo 07/11, EF 45-50%, -IV lasix push to IV lasix drip on 07/12, neg 5 liters, still with sings of overloa -continue Metolazone, reduce to 2.5 -salt/water restriction, daily weight, chf education, -follow Bmp and correct as needed -continue lisinpril but reduce dose given lower BP, stop norvasc and metolazone, will discuss jardiance and aldactone with cardiology # HypOkalemia d/t diuretics, replace oraly #Elevated troponins, type 2 mi from acute heart failure #Tricuspid regurgitation -likely contributing to CHF above -update echo #Paroxysmal atrial fibrillation, rate controlled #Supratherapuetic INR, 8.1--> 5.8, restart coumadin when inr around 2 #HTN--BP on lower side, reduce lisinopril, stop norvasc, stop metolazone #SHALONDA -not yet on cpap #HLD -statin DVt prophylaxis- scps- inr supratherapeutic, resume as appropriate Full code need for inptient: IV diuretics for acute heart failure and frequent electrolyte check re replacement and need for cardiac monitoring Quality Stroke Does the patient have a stroke diagnosis?: No VTE Prior VTE?: No VTE Risk Level:: Medical - moderate - high VTE Device Contraindication: Treatment Not Indicated VTE Drug Contraindication: N/A - Med Ordered
[2023-07-13 11:13] VITALS: BP 92/55; PULSE 69; RESP 20; TEMP 37.3; O2SAT 95
[2023-07-13 11:15] LABS: INTERNATIONAL NORM RATIO 3.7 (0.9-1.1); Prothrombin Time 45.1 SEC (11.1-13.3)
--- NOTE | 2023-07-13 11:21 | PM.PNCARD ---
Subjective Subjective Date of Service: 07/13/23 Principal diagnosis: CHF,, atrial fibrillation. Interval history: Patient overnight has diuresed about 3.5 L. Total negative balance of about 5 L. His creatinine is risen slightly. He is responded well to diuretic therapy at this point time. No bleeding issues. Feels better and says his scrotal selling as has leg edema is improved. Review of Systems Constitutional: Reports no additional constitutional complaints Cardiovascular: Denies chest pain, Reports leg edema (Improving), Denies lightheadedness, Denies Loss of Consciousness, Denies palpitations and Reports dyspnea on exertion Respiratory: Reports no additional respiratory complaints and Reports dyspnea on exertion Genitourinary: Reports scrotal swelling (Improving) Reports system reviewed and no additional complaints, except as documented Endocrine: Denies palpitations Physical Exam Vital Signs: Last Vital Signs Temp 99.2 F 07/13/23 11:13 Pulse 69 07/13/23 11:13 Resp 20 07/13/23 11:13 BP 92/55 L 07/13/23 11:13 Pulse Ox 95 07/13/23 11:13 O2 Del Method Nasal Cannula 07/13/23 11:13 O2 Flow Rate 2 07/13/23 11:13 BMI result Body Mass Index 34.4 Const General: cooperative, comfortable, no acute distress, alert and awake Nutritional Appearance: obese Orientation/consciousness: patient oriented x3 Limitations: no limitations HEENT Head: Yes normocephalic and Yes atraumatic Neck Neck: Yes trachea midline, Yes supple and Yes JVD Resp Effort & Inspection: normal respiratory effort Auscultation: crackles bilateral at the base Cardio Jugular venous distension: JVD Rate: regular rate Rhythm: regular rhythm Heart sounds: S1 normal heart sound present, S2 normal heart sound present, no click, no gallops and Murmur heart sound present systolic GI Inspection: Yes distended Auscultation: normal bowel sounds Skin General skin exam: no rashes or lesions noted and ecchymosis Neuro General: patient oriented x3 and no focal motor deficits Extrem General: No clubbing, No cyanosis and Yes edema Objective Labs and Meds 07/12/23 06:11 07/13/23 02:58 Lab results: Laboratory Results - last 24 hr 07/12/23 07/13/23 07/13/23 12:41 02:58 11:01 Hold Purple Top SEE NOTE PT 45.1 H D INR 3.7 H D Sodium 139 141 Potassium 2.9 L* 3.2 L Chloride 93 L 94 L Carbon Dioxide 35 H 37 H Anion Gap 14 13 BUN 34 H Creatinine 1.24 Estim Creat Clear Calc 45.5 Estimated GFR 55 Random Glucose 93 Calcium 8.9 Magnesium 1.8 Progress Note: A&P Assessment and plan (1) CHF exacerbation: Status: Acute Assessment and Plan: Right heart failure syndrome improving but more rapid diuresis than expected. Expected slight rise in creatinine has happened his rapid diuresis. Will temperature diuresis again and avoid using metolazone. Continue Lasix drip at 5 mg an hour. Continue strict intake and output chart. Replace potassium aggressively. Follow-up renal function and BNP tomorrow. Continues to need diuresis. (2) PAF (paroxysmal atrial fibrillation): Status: Acute Assessment and Plan: Prior history of paroxysmal atrial fibrillation appears to be more persistent. Will review pacer check if done not done will also pacer company to review his pacemaker. His INRs downtrending. Once INR is closer to 2 can switch to oral anticoagulation therapy with Eliquis depending on his renal function. Will follow with you Time Spent With Patient Time: Total time managing care of this patient today ____ minutes. Progress Note: Quality Stroke Does the patient have a stroke diagnosis?: No Procedures Date of Service Date of Service: 07/13/23
[2023-07-13 11:27] LABS: B Type Natriuretic Peptide 247 pg/mL (<100)
[2023-07-13] MEDS: Furosemide 200 MG in 0.9 % Sodium Chloride 80 ML IVCONT (11:54)
--- NOTE | 2023-07-13 12:11 | MHC.CM.PN ---
HCP obtained and added to chart, it names: Shira Funes as primary and Salo Funes as alternate.
[2023-07-13 15:50] VITALS: BP 102/55; PULSE 69; RESP 20; TEMP 36.7; O2SAT 91
[2023-07-13 19:35] VITALS: BP 93/51; PULSE 77; RESP 16; TEMP 37.2; O2SAT 94
[2023-07-13] MEDS: Tamsulosin HCL 0.4 MG CAPSULE PO (20:12)
[2023-07-13 22:57] VITALS: BP 110/62; PULSE 72; RESP 17; TEMP 36.7; O2SAT 97
[2023-07-14 03:25] VITALS: BP 98/43; PULSE 82; RESP 17; TEMP 36.9; O2SAT 94
[2023-07-14 06:39] LABS: Anion Gap 13 (12-20); Blood Urea Nitrogen 44 mg/dL (9-16); Calcium 9.1 mg/dL (8.4-10.2); Carbon Dioxide 36 mmol/L (22-29); Chloride 92 mmol/L (96-108); Creatinine Clr Calc Pharmacy 38.1; Estimated Glomerular Filt Rate 47; Glucose Random 95 mg/dL (60-115); Potassium 3.4 mmol/L (3.3-5.1); Sodium 138 mmol/L (135-145)
[2023-07-14 06:44] LABS: INTERNATIONAL NORM RATIO 2.9 (0.9-1.1); Prothrombin Time 35.4 SEC (11.1-13.3)
[2023-07-14] MEDS: Acetaminophen 325 MG TABLET 650 MG PO ×2 (07:16→19:46)
[2023-07-14 07:27] VITALS: BP 102/60; PULSE 63; RESP 18; TEMP 36.2; O2SAT 95
[2023-07-14] MEDS: Magnesium Oxide 400 MG TABLET PO (07:34)
[2023-07-14] MEDS: Multivitamin TABLET 1 TAB PO (07:34)
[2023-07-14] MEDS: Cholecalciferol (Vitamin D3) 25 MCG TABLET PO (07:34)
[2023-07-14] MEDS: Potassium Chloride ER 20 MEQ TAB.ER.PRT 40 MEQ PO (07:34)
[2023-07-14] MEDS: 0.9 % Sodium Chloride Flush 3 ML SYRINGE IVFLUSH ×2 (07:34→16:20)
[2023-07-14] MEDS: Calcium + Vitamin D 250 MG TABLET 500 MG PO (07:34)
[2023-07-14] MEDS: Ferrous Sulfate 324 MG TABLET.DR PO (07:34)
--- NOTE | 2023-07-14 08:32 | P.PNIM_ITS ---
Subjective Subjective Date of Service: 07/14/23 Interval History: f/u on fluid overload chf exacerbation. No sob leg swelling and scrotal swelling is better. Cr is trending up and BP on lower side Physical Exam 2 Vital Signs: Vital Signs: Last Vital Signs Temp 97.1 F 07/14/23 07:27 Pulse 63 07/14/23 07:27 Resp 18 07/14/23 07:27 BP 102/60 07/14/23 07:27 Pulse Ox 95 07/14/23 07:27 O2 Del Method Nasal Cannula 07/14/23 07:27 O2 Flow Rate 2 07/14/23 07:27 BMI result Body Mass Index 34.4 Constitutional - Awake and Alert, No apparent distress Eyes - PERRLA, EOMI Neck- -JVD Cardiovascular - S1S2, RRR, fabio 2+ pitting edema Respiratory - Normal lung expansion, Normal respiratory effort, No respiratory distress, bibasilar crackles Gastrointestinal - NT / ND; +BS; No rebound or guarding - 2+scrotal edema Extremities - no calf tenderness bilaterally, no swelling Skin - Warm/Dry Neurological - Alert & oriented x3 Psychological - Appropriate affect Objective Data Active Medications Acetaminophen (Acetaminophen 325 Mg Tablet) 650 mg PO Q6H PRN PRN Reason: Pain, Mild (Pain Scale 1-3) Last Admin: 07/14/23 07:16 Dose: 650 mg Documented By: ROSARIO Calcium Carbonate/Cholecalciferol (Calcium + Vitamin D 250 Mg Tablet) 500 mg PO DAILY [facility] Last Admin: 07/14/23 07:34 Dose: 500 mg Documented By: ROSARIO Ferrous Sulfate (Ferrous Sulfate 324 Mg Tablet.) 324 mg PO DAILY [facility] Last Admin: 07/14/23 07:34 Dose: 324 mg Documented By: ROSARIO Magnesium Oxide (Magnesium Oxide 400 Mg Tablet) 400 mg PO DAILY [facility] Last Admin: 07/14/23 07:34 Dose: 400 mg Documented By: ROSARIO Multivitamins/Vitamin C (Multivitamin Tablet) 1 tab PO DAILY [facility] Last Admin: 07/14/23 07:34 Dose: 1 tab Documented By: ROSARIO Ondansetron HCl (Ondansetron Hcl 4 Mg/2 Ml Vial) 4 mg IVPUSH Q8H PRN PRN Reason: Nausea and Vomiting Potassium Chloride (Potassium Chloride Er 20 Meq Tab.Er.Prt) 40 meq PO DAILY [facility] Last Admin: 07/14/23 07:34 Dose: 40 meq Documented By: ROSARIO Senna (Sennosides 8.6 Mg Tablet) 17.2 mg PO BEDTIME PRN PRN Reason: Constipation Sodium Chloride (0.9 % Sodium Chloride Flush 3 Ml Syringe) 3 ml IVFLUSH QSHIFT [facility] Last Admin: 07/14/23 07:34 Dose: 3 ml Documented By: ROSARIO Tamsulosin HCl (Tamsulosin Hcl 0.4 Mg Capsule) 0.4 mg PO BEDTIME [facility] Last Admin: 07/13/23 20:12 Dose: 0.4 mg Documented By: IRA Vitamin D (Cholecalciferol (Vitamin D3) 25 Mcg Tablet) 25 mcg PO DAILY [facility] Last Admin: 07/14/23 07:34 Dose: 25 mcg Documented By: ROSARIO Labs 07/12/23 06:11 07/14/23 05:59 Labs: Laboratory Results - last 24 hr 07/13/23 07/14/23 11:01 05:59 Hold Purple Top SEE NOTE PT 45.1 H D 35.4 H D INR 3.7 H D 2.9 H Anion Gap 13 Estim Creat Clear Calc 38.1 Estimated GFR 47 Random Glucose 95 Calcium 9.1 B-Natriuretic Peptide 247 H Assessment and Plan (1) CHF exacerbation: Status: Acute (2) Elevated INR: Status: Acute Plan 83 year old male with history of PAF, pacemaker in place, HTN, HLD, CHF, SHALONDA, ED, tricuspid regurgitation, Prostate cancer, Bladder cancer admitted for management of CHF exacebration #Acute systolic CHF exacerbation, echo 07/11, EF 45-50%, -Hold IV Lasix drip in light of rising Cr and BP trending down. IV lasix push to IV lasix drip on 07/12, neg 6 liters -salt/water restriction, daily weight, chf education, -follow Bmp and correct K as needed -hold lisinopril and norvascl today in light of low BP and rising Cr # HypOkalemia d/t diuretics, replace oraly #Elevated troponins, type 2 mi from acute heart failure #Paroxysmal atrial fibrillation, rate controlled #Supratherapuetic INR, in general variable INR levels, will switch to eliquis when INR < 2 #HTN--BP on lower side hold lisnipril, norvasc, metolazone and lasix drip #SHALONDA -not yet on cpap #HLD -statin DVt prophylaxis- scps- inr supratherapeutic, resume as appropriate Full code need for inptient: IV diuretics for acute heart failure and frequent electrolyte check re replacement and need for cardiac monitoring Quality Stroke Does the patient have a stroke diagnosis?: No VTE Prior VTE?: No VTE Risk Level:: Medical - moderate - high VTE Device Contraindication: Treatment Not Indicated VTE Drug Contraindication: N/A - Med Ordered
--- NOTE | 2023-07-14 11:04 | PM.PNCARD ---
Subjective Subjective Date of Service: 07/14/23 Principal diagnosis: CHF,, atrial fibrillation. Interval history: Patient has overall diuresed 6 L. BNP is downtrending. Creatinine is up to 1.44. He feels a lot better. Not using oxygen sleeping comfortably. INR today is 2.9. Potassium is still low Review of Systems Constitutional: Reports no additional constitutional complaints Physical Exam Vital Signs: Last Vital Signs Temp 97.1 F 07/14/23 07:27 Pulse 63 07/14/23 07:27 Resp 18 07/14/23 07:27 BP 102/60 07/14/23 07:27 Pulse Ox 95 07/14/23 07:27 O2 Del Method Nasal Cannula 07/14/23 07:27 O2 Flow Rate 2 07/14/23 07:27 BMI result Body Mass Index 34.4 Const General: cooperative, comfortable, no acute distress, alert and awake Nutritional Appearance: obese Orientation/consciousness: patient oriented x3 Limitations: no limitations HEENT Head: Yes normocephalic and Yes atraumatic Neck Neck: Yes trachea midline, Yes supple and Yes no JVD Resp Effort & Inspection: normal respiratory effort Auscultation: crackles bilateral at the base Cardio Jugular venous distension: no JVD Rate: regular rate Rhythm: regular rhythm Heart sounds: S1 normal heart sound present, S2 normal heart sound present, no click, no gallops and Murmur heart sound present systolic GI Inspection: Yes distended Auscultation: normal bowel sounds Skin General skin exam: no rashes or lesions noted and ecchymosis Neuro General: patient oriented x3 and no focal motor deficits Extrem General: No clubbing, No cyanosis and Yes edema Objective Labs and Meds 07/12/23 06:11 07/14/23 05:59 Lab results: Laboratory Results - last 24 hr 07/13/23 07/14/23 11:01 05:59 Hold Purple Top SEE NOTE PT 45.1 H D 35.4 H D INR 3.7 H D 2.9 H Sodium 138 Potassium 3.4 Chloride 92 L Carbon Dioxide 36 H Anion Gap 13 BUN 44 H Creatinine 1.44 H Estim Creat Clear Calc 38.1 Estimated GFR 47 Random Glucose 95 Calcium 9.1 B-Natriuretic Peptide 247 H Progress Note: A&P Assessment and plan (1) CHF exacerbation: Status: Acute Assessment and Plan: CHF exacerbation in this elderly gentleman related to possible persistent AFib and RV dysfunction. There is no significant tricuspid regurgitation explaining his right heart failure syndrome probably related to RV dysfunction persistent atrial fibrillation. Clinically doing well. Creatinine is going up probably due to more rapid diuresis. Can switch to p.o. Bumex rather than Lasix at 2 mg daily. Heart failure management was discussed with the patient. Additional diuretics at home if there is weight gain rather than hospitalization. He understands. Continue replace potassium to above 4. Follow-up BMP and BNP tomorrow. If stable can potentially discharged home. Out of bed to chair and ambulate with physical therapy consult. (2) PAF (paroxysmal atrial fibrillation): Status: Acute Assessment and Plan: Atrial fibrillation which appears to be more persistent at this point time. Although I do not see a pacemaker evaluation. Will need to monitor. Continue rate control for now. Once INR is closer to 2 can switch to Eliquis therapy for more predictable oral anticoagulation. Patient is agreeable to the same. Follow-up lab work tomorrow. Will sign of the case. Thank you for allowing me to partake in his care Time Spent With Patient Time: Total time managing care of this patient today ____ minutes. Progress Note: Quality Stroke Does the patient have a stroke diagnosis?: No Procedures Date of Service Date of Service: 07/14/23
[2023-07-14 11:32] VITALS: BP 100/60; PULSE 67; RESP 18; TEMP 36.2; O2SAT 92
[2023-07-14 15:59] VITALS: BP 84/70; PULSE 73; RESP 18; TEMP 36.5; O2SAT 92
[2023-07-14] MEDS: 0.9 % Sodium Chloride 1,000 ML 100 ML IVCONT (16:20)
[2023-07-14 18:00] VITALS: BP 97/53; PULSE 69; RESP 18; O2SAT 94
[2023-07-14] MEDS: Tamsulosin HCL 0.4 MG CAPSULE PO (19:46)
[2023-07-14 19:59] VITALS: BP 102/52; PULSE 69; RESP 18; TEMP 37.1; O2SAT 90
[2023-07-15] VITALS (7 sets, daily range): BP systolic 98–119; BP diastolic 54–61; PULSE 58–75; RESP 18–20; TEMP 36–37; O2SAT 92–97; BMI 32.6
[2023-07-15] MEDS: 0.9 % Sodium Chloride 1,000 ML 100 ML IVCONT (05:35)
[2023-07-15 06:01] LABS: INTERNATIONAL NORM RATIO 2.3 (0.9-1.1); Prothrombin Time 28.1 SEC (11.1-13.3)
[2023-07-15 06:09] LABS: Anion Gap 14 (12-20); Blood Urea Nitrogen 49 mg/dL (9-16); Calcium 8.6 mg/dL (8.4-10.2); Carbon Dioxide 36 mmol/L (22-29); Chloride 94 mmol/L (96-108); Creatinine Clr Calc Pharmacy 39.5; Estimated Glomerular Filt Rate 49; Glucose Random 92 mg/dL (60-115); Potassium 3.6 mmol/L (3.3-5.1); Sodium 140 mmol/L (135-145)
--- NOTE | 2023-07-15 08:41 | P.PNIM_ITS ---
Subjective Subjective Date of Service: 07/15/23 Interval History: feels better, no shorntess, has residual swelling in legs Physical Exam 2 Vital Signs: Vital Signs: Last Vital Signs Temp 97.1 F 07/15/23 07:36 Pulse 69 07/15/23 07:36 Resp 18 07/15/23 07:36 BP 119/60 07/15/23 07:36 Pulse Ox 95 07/15/23 07:36 O2 Del Method Nasal Cannula 07/15/23 07:36 O2 Flow Rate 3 07/15/23 07:36 BMI result Body Mass Index 32.6 Constitutional - Awake and Alert, No apparent distress Eyes - PERRLA, EOMI Neck- -JVD Cardiovascular - S1S2, RRR, fabio 2+ pitting edema Respiratory - Normal lung expansion, Normal respiratory effort, No respiratory distress, bibasilar crackles Gastrointestinal - NT / ND; +BS; No rebound or guarding - 2+scrotal edema Extremities - no calf tenderness bilaterally, no swelling Skin - Warm/Dry Neurological - Alert & oriented x3 Psychological - Appropriate affect Objective Data Active Medications Acetaminophen (Acetaminophen 325 Mg Tablet) 650 mg PO Q6H PRN PRN Reason: Pain, Mild (Pain Scale 1-3) Last Admin: 07/14/23 19:46 Dose: 650 mg Documented By: IRA Bumetanide (Bumetanide 1 Mg Tablet) 2 mg PO BID@0800,1700 [facility]; Protocol Last Admin: 07/14/23 16:20 Dose: Not Given Documented By: ROSARIO Non-Admin Reason: low BP. held med Calcium Carbonate/Cholecalciferol (Calcium + Vitamin D 250 Mg Tablet) 500 mg PO DAILY [facility] Last Admin: 07/14/23 07:34 Dose: 500 mg Documented By: ROSARIO Ferrous Sulfate (Ferrous Sulfate 324 Mg Tablet.) 324 mg PO DAILY [facility] Last Admin: 07/14/23 07:34 Dose: 324 mg Documented By: ROSARIO Magnesium Oxide (Magnesium Oxide 400 Mg Tablet) 400 mg PO DAILY [facility] Last Admin: 07/14/23 07:34 Dose: 400 mg Documented By: ROSARIO Multivitamins/Vitamin C (Multivitamin Tablet) 1 tab PO DAILY [facility] Last Admin: 07/14/23 07:34 Dose: 1 tab Documented By: HO.PHANLYM Ondansetron HCl (Ondansetron Hcl 4 Mg/2 Ml Vial) 4 mg IVPUSH Q8H PRN PRN Reason: Nausea and Vomiting Potassium Chloride (Potassium Chloride Er 20 Meq Tab.Er.Prt) 40 meq PO DAILY [facility] Last Admin: 07/14/23 07:34 Dose: 40 meq Documented By: ROSARIO Senna (Sennosides 8.6 Mg Tablet) 17.2 mg PO BEDTIME PRN PRN Reason: Constipation Sodium Chloride (0.9 % Sodium Chloride Flush 3 Ml Syringe) 3 ml IVFLUSH QSHIFT [facility] Last Admin: 07/14/23 19:47 Dose: Not Given Documented By: IRA Non-Admin Reason: IV Running Tamsulosin HCl (Tamsulosin Hcl 0.4 Mg Capsule) 0.4 mg PO BEDTIME [facility] Last Admin: 07/14/23 19:46 Dose: 0.4 mg Documented By: IRA Vitamin D (Cholecalciferol (Vitamin D3) 25 Mcg Tablet) 25 mcg PO DAILY [facility] Last Admin: 07/14/23 07:34 Dose: 25 mcg Documented By: ROSARIO Labs 07/12/23 06:11 07/15/23 05:43 Labs: Laboratory Results - last 24 hr 07/15/23 05:43 Hold Purple Top SEE NOTE PT 28.1 H D INR 2.3 H Anion Gap 14 Estim Creat Clear Calc 39.5 Estimated GFR 49 Random Glucose 92 Calcium 8.6 Assessment and Plan (1) CHF exacerbation: Status: Acute (2) Elevated INR: Status: Acute Plan 83 year old male with history of PAF, pacemaker in place, HTN, HLD, CHF, SHALONDA, ED, tricuspid regurgitation, Prostate cancer, Bladder cancer admitted for management of CHF exacebration #Acute systolic CHF exacerbation, echo 07/11, EF 45-50%, -started on IV Lasix push, changed to IV drip, now changed oral Bumex -salt/water restriction, daily weight, chf education, -follow Bmp and correct K as needed -Restart Lisinopril at lower dose, stop norvasc # HypOkalemia d/t diuretics, replace oraly #Elevated troponins, type 2 mi from acute heart failure #Paroxysmal atrial fibrillation, rate controlled #Supratherapuetic INR, inconistent level, will transition to eliquis when inr 2 or less #HTN--BP on lowe side, holding norvas, metolazone, restarting Lisinopril at lower dose #Mild JB--resolved. #SHALONDA -cpapa #HLD -statin DVt prophylaxis- scps- inr supratherapeutic, resume as appropriate Full code need for inptient: IV diuretics for acute heart failure and frequent electrolyte check re replacement and need for cardiac monitoring Quality Stroke Does the patient have a stroke diagnosis?: No VTE Prior VTE?: No VTE Risk Level:: Medical - moderate - high VTE Device Contraindication: Treatment Not Indicated VTE Drug Contraindication: N/A - Med Ordered
[2023-07-15] MEDS: Magnesium Oxide 400 MG TABLET PO (09:23)
[2023-07-15] MEDS: Cholecalciferol (Vitamin D3) 25 MCG TABLET PO (09:25)
[2023-07-15] MEDS: Potassium Chloride ER 20 MEQ TAB.ER.PRT 40 MEQ PO (09:25)
[2023-07-15] MEDS: Calcium + Vitamin D 250 MG TABLET 500 MG PO (09:25)
[2023-07-15] MEDS: lisinopriL 10 MG TABLET PO (09:25)
[2023-07-15] MEDS: Multivitamin TABLET 1 TAB PO (09:25)
[2023-07-15] MEDS: Ferrous Sulfate 324 MG TABLET.DR PO (09:25)
[2023-07-15] MEDS: Bumetanide 1 MG TABLET 2 MG PO ×2 (09:26→18:12)
[2023-07-15] MEDS: 0.9 % Sodium Chloride Flush 3 ML SYRINGE IVFLUSH ×3 (09:26→21:14)
[2023-07-15] MEDS: Tamsulosin HCL 0.4 MG CAPSULE PO (21:14)
[2023-07-16] VITALS (8 sets, daily range): BP systolic 86–121; BP diastolic 53–72; PULSE 2–74; RESP 16–20; TEMP 36.6–37.3; O2SAT 90–97
[2023-07-16 06:27] LABS: INTERNATIONAL NORM RATIO 1.8 (0.9-1.1); Prothrombin Time 22.5 SEC (11.1-13.3)
[2023-07-16 06:38] LABS: Anion Gap 13 (12-20); Blood Urea Nitrogen 48 mg/dL (9-16); Calcium 8.9 mg/dL (8.4-10.2); Carbon Dioxide 37 mmol/L (22-29); Chloride 90 mmol/L (96-108); Creatinine Clr Calc Pharmacy 41.4; Estimated Glomerular Filt Rate 53; Glucose Random 87 mg/dL (60-115); Potassium 3.1 mmol/L (3.3-5.1); Sodium 137 mmol/L (135-145)
[2023-07-16] MEDS: Calcium + Vitamin D 250 MG TABLET 500 MG PO (08:15)
[2023-07-16] MEDS: Ferrous Sulfate 324 MG TABLET.DR PO (08:15)
[2023-07-16] MEDS: Potassium Chloride ER 20 MEQ TAB.ER.PRT 40 MEQ PO (08:15)
[2023-07-16] MEDS: Cholecalciferol (Vitamin D3) 25 MCG TABLET PO (08:15)
[2023-07-16] MEDS: Apixaban 5 MG TABLET PO ×2 (08:15→21:08)
[2023-07-16] MEDS: Acetaminophen 325 MG TABLET 650 MG PO ×2 (08:15→16:50)
[2023-07-16] MEDS: Multivitamin TABLET 1 TAB PO (08:15)
[2023-07-16] MEDS: Magnesium Oxide 400 MG TABLET PO (08:15)
--- NOTE | 2023-07-16 08:28 | PC.NURSE ---
Addendum entered by Wei Arana RN 07/16/23 10:51: per md order and confirmed via telephone administer 250ml bolus once then cont infusion 100cc/hr NS until BP improves then d/c Original Note: informed MD of pt's bp. held meds d/t low bp
[2023-07-16] MEDS: 0.9 % Sodium Chloride 1,000 ML 250 ML IVCONT (10:47)
[2023-07-16] MEDS: 0.9 % Sodium Chloride 1,000 ML 100 ML IVCONT (10:47)
--- NOTE | 2023-07-16 13:00 | P.PNIM_ITS ---
Subjective Subjective Date of Service: 07/16/23 Interval History: f/u on heart failure, no sob, leg swelling is better, SBP was in the 80s and BP meds held and given some IVF with improvment, was asssymptoamtic Physical Exam 2 Vital Signs: Vital Signs: Last Vital Signs Temp 99.1 F 07/16/23 11:43 Pulse 73 07/16/23 11:43 Resp 17 07/16/23 11:43 BP 105/56 L 07/16/23 11:43 Pulse Ox 96 07/16/23 11:43 O2 Del Method Nasal Cannula 07/16/23 11:43 O2 Flow Rate 2 07/16/23 11:43 BMI result Body Mass Index 32.6 Constitutional - Awake and Alert, No apparent distress Eyes - PERRLA, EOMI Neck- -JVD Cardiovascular - S1S2, RRR, fabio 2+ pitting edema Respiratory - Normal lung expansion, Normal respiratory effort, No respiratory distress, bibasilar crackles Gastrointestinal - NT / ND; +BS; No rebound or guarding - 1+scrotal edema Extremities - no calf tenderness bilaterally, no swelling Skin - Warm/Dry Neurological - Alert & oriented x3 Psychological - Appropriate affect Objective Data Active Medications Acetaminophen (Acetaminophen 325 Mg Tablet) 650 mg PO Q6H PRN PRN Reason: Pain, Mild (Pain Scale 1-3) Last Admin: 07/16/23 08:15 Dose: 650 mg Documented By: CHETNA Apixaban (Apixaban 5 Mg Tablet) 5 mg PO BID [facility] Last Admin: 07/16/23 08:15 Dose: 5 mg Documented By: CHETNA Bumetanide (Bumetanide 1 Mg Tablet) 2 mg PO BID@0800,1700 [facility]; Protocol Last Admin: 07/16/23 08:21 Dose: Not Given Documented By: CHETNA Non-Admin Reason: low bp - holding Calcium Carbonate/Cholecalciferol (Calcium + Vitamin D 250 Mg Tablet) 500 mg PO DAILY [facility] Last Admin: 07/16/23 08:15 Dose: 500 mg Documented By: CHETNA Ferrous Sulfate (Ferrous Sulfate 324 Mg Tablet.) 324 mg PO DAILY [facility] Last Admin: 07/16/23 08:15 Dose: 324 mg Documented By: CHETNA Sodium Chloride (Ns) 1,000 mls @ 100 mls/hr IVCONT .Q10H [facility] Last Infusion: 07/16/23 12:25 Dose: Infused Documented By: CHETNA Sodium Chloride (Ns) 1,000 mls @ 250 mls/hr IVCONT .Q4H [facility] Stop: 07/16/23 13:59 Last Infusion: 07/16/23 12:25 Dose: Infused Documented By: CHETNA Lisinopril (Lisinopril 10 Mg Tablet) 10 mg PO DAILY [facility]; Protocol Last Admin: 07/16/23 08:21 Dose: Not Given Documented By: CHETNA Non-Admin Reason: low bp - holding Magnesium Oxide (Magnesium Oxide 400 Mg Tablet) 400 mg PO DAILY [facility] Last Admin: 07/16/23 08:15 Dose: 400 mg Documented By: CHETNA Multivitamins/Vitamin C (Multivitamin Tablet) 1 tab PO DAILY [facility] Last Admin: 07/16/23 08:15 Dose: 1 tab Documented By: CHETNA Ondansetron HCl (Ondansetron Hcl 4 Mg/2 Ml Vial) 4 mg IVPUSH Q8H PRN PRN Reason: Nausea and Vomiting Potassium Chloride (Potassium Chloride Er 20 Meq Tab.Er.Prt) 40 meq PO DAILY [facility] Last Admin: 07/16/23 08:15 Dose: 40 meq Documented By: CHETNA Senna (Sennosides 8.6 Mg Tablet) 17.2 mg PO BEDTIME PRN PRN Reason: Constipation Sodium Chloride (0.9 % Sodium Chloride Flush 3 Ml Syringe) 3 ml IVFLUSH QSHIFT [facility] Last Admin: 07/16/23 12:25 Dose: Not Given Documented By: CHETNA Non-Admin Reason: See Note Tamsulosin HCl (Tamsulosin Hcl 0.4 Mg Capsule) 0.4 mg PO BEDTIME [facility] Last Admin: 07/15/23 21:14 Dose: 0.4 mg Documented By: SHANIQUA Vitamin D (Cholecalciferol (Vitamin D3) 25 Mcg Tablet) 25 mcg PO DAILY [facility] Last Admin: 07/16/23 08:15 Dose: 25 mcg Documented By: CHETNA Labs 07/12/23 06:11 07/16/23 05:59 Labs: Laboratory Results - last 24 hr 07/16/23 05:59 Hold Purple Top SEE NOTE PT 22.5 H INR 1.8 H Anion Gap 13 Estim Creat Clear Calc 41.4 Estimated GFR 53 Random Glucose 87 Calcium 8.9 Assessment and Plan (1) CHF exacerbation: Status: Acute (2) Elevated INR: Status: Acute Plan 83 year old male with history of PAF, pacemaker in place, HTN, HLD, CHF, SHALONDA, ED, tricuspid regurgitation, Prostate cancer, Bladder cancer admitted for management of CHF exacebration #Acute systolic CHF exacerbation, echo 07/11, EF 45-50%, -initially treated with IV Lasix push, changed to IV drip and achieved good effect, and then changed to oral Bumex 2 bid. Neg 6.5 Liter -BP has been runing on low side and has prompted stopping Lisinopril 40, norvasc and infact Bumex has been on hold and given so normal saline for SBP in 80s today -salt/water restriction, daily weight, chf education, -follow Bmp and correct K as needed -Hold Lisinopril today (home dose 40 but was on 10 here)--hold today if BP is ok, resume tomorrow at 10 # HypOkalemia d/t diuretics, replace oraly, ? add Aldactone, discuss with cardiology #Elevated troponins, type 2 mi from acute heart failure #Paroxysmal atrial fibrillation, rate controlled #Supratherapuetic INR, inconistent levels, INR is now < 2, starting eliquis today 07/16 #HTN--BP on low side today with SBP in 80s, hold Lisinopril, Norvasc and Bumex #Mild JB--resolved. #SHALONDA -cpapa #HLD -statin DVt prophylaxis- eliquis Full code need for inpatient: heart failure with fluctuating blood pressure and meds being adjsusted in light of hypotension dc tomorrow if stable Quality Stroke Does the patient have a stroke diagnosis?: No VTE Prior VTE?: No VTE Risk Level:: Medical - moderate - high VTE Device Contraindication: Treatment Not Indicated VTE Drug Contraindication: N/A - Med Ordered
--- NOTE | 2023-07-16 13:14 | MHC.CM.PN ---
EMR REVIEWED, PT HYPOTENSIVE AND RECEIVING IV FLUIDS, PT ALSO REMAINS ON SUPPLEMENTAL O2, NO PLAN FOR DC AT THIS TIME, CM WILL CONT TO FOLLOW DC NEEDS.
[2023-07-16] MEDS: 0.9 % Sodium Chloride Flush 3 ML SYRINGE IVFLUSH (21:11)
[2023-07-17 03:50] VITALS: BP 100/53; PULSE 100; RESP 18; TEMP 37.2; O2SAT 96
[2023-07-17 07:03] LABS: INTERNATIONAL NORM RATIO 2.6 (0.9-1.1); Prothrombin Time 31.2 SEC (11.1-13.3)
[2023-07-17 07:43] VITALS: BP 108/55; PULSE 69; RESP 20; TEMP 36.6; O2SAT 96
[2023-07-17] MEDS: Calcium + Vitamin D 250 MG TABLET 500 MG PO (08:18)
[2023-07-17] MEDS: Magnesium Oxide 400 MG TABLET PO (08:18)
[2023-07-17] MEDS: Cholecalciferol (Vitamin D3) 25 MCG TABLET PO (08:18)
[2023-07-17] MEDS: 0.9 % Sodium Chloride Flush 3 ML SYRINGE IVFLUSH (08:18)
[2023-07-17] MEDS: Apixaban 5 MG TABLET PO (08:18)
[2023-07-17] MEDS: Ferrous Sulfate 324 MG TABLET.DR PO (08:18)
[2023-07-17] MEDS: Potassium Chloride ER 20 MEQ TAB.ER.PRT 40 MEQ PO (08:18)
[2023-07-17] MEDS: Multivitamin TABLET 1 TAB PO (08:18)
[2023-07-17] MEDS: Acetaminophen 325 MG TABLET 650 MG PO (08:46)
[2023-07-17 09:06] LABS: Anion Gap 13 (12-20); Blood Urea Nitrogen 48 mg/dL (9-16); Calcium 9.3 mg/dL (8.4-10.2); Carbon Dioxide 37 mmol/L (22-29); Chloride 91 mmol/L (96-108); Creatinine Clr Calc Pharmacy 41.7; Estimated Glomerular Filt Rate 53; Glucose Random 90 mg/dL (60-115); Potassium 3.6 mmol/L (3.3-5.1); Sodium 137 mmol/L (135-145)
--- NOTE | 2023-07-17 09:14 | P.F2F_ITS ---
Service Date Service Date: 07/17/23 Encounter Date of encounter: 07/17/23 Reasons for Services Signs and symptoms assessed: Heart failure, shortness of breath at rest Reason for half-way: medication management and teach disease management Homebound: Leaving the home is medically contraindicated at this time without the asist of a device and/or another person due th the listed conditions above and below. Reason homebound: leg weakness and shortness of breath with minimal effort Homebound supporting statement: Homebound due to shortness of breath with minimal effort from heart failure and therefore needs the assistnace of another p Certification: Based on the above findings, I certify that this patient is confined to the home and needs intermittent half-way care, physical therapy and/or speech t herapy, or continues to need occupational therapy. The patient is under my care, and I have initiated the establishment of the plan of care. The patient will be followed by a physician who will periodically review the plan of care. Time Spent With Patient Time: Total time managing care of this patient today ____ minutes.
--- NOTE | 2023-07-17 09:29 | PM.PNCARD ---
Subjective Subjective Date of Service: 07/17/23 Principal diagnosis: CHF,, atrial fibrillation. Interval history: He states he feels fine. Yesterday, he had some low blood pressure issues but that seems better now. Could be from over diuresis. Review of Systems Review of Systems Yes all other systems are reviewed and are negative Constitutional: Reports as per HPI and Reports no additional constitutional complaints Eyes: Reports as per HPI and Denies no additional eye complaints Denies system reviewed and no additional complaints, except as documented and Reports as per HPI Cardiovascular: Reports as per HPI, Reports no additional cardiovascular complaints, Denies acrocyanosis, Denies cool extremities, Denies chest pain, Denies leg edema, Denies lightheadedness, Denies palpitations and Denies dyspnea Respiratory: Reports as per HPI, Denies no additional respiratory complaints and Denies dyspnea Gastrointestinal: Reports as per HPI and Denies no additional gastrointestinal complaints Genitourinary: Reports no additional male genitourinary complaints and Reports as per HPI Musculoskeletal: Reports no additional musculoskeletal complaints and Reports as per HPI Skin/Breast: Reports system reviewed and no additional complaints, except as docu Reports system reviewed and no additional complaints, except as documented and Reports as per HPI Psychiatric: Reports no additional psychiatric complaints and Reports as per HPI Endocrine: Reports no additional endocrine complaints, Reports as per HPI and Denies palpitations Hematologic/Lymphatic: Reports no additional hematologic/lymphatic complaints and Reports as per HPI Allergic/Immunologic: Reports no additional allergic/immunologic complaints and Reports as per HPI Physical Exam Vital Signs: Last Vital Signs Temp 97.9 F 07/17/23 07:43 Pulse 69 07/17/23 07:43 Resp 20 07/17/23 07:43 BP 108/55 L 07/17/23 07:43 Pulse Ox 96 07/17/23 07:43 O2 Del Method Nasal Cannula 07/17/23 07:43 O2 Flow Rate 2 07/17/23 07:43 BMI result Body Mass Index 32.6 Const General: comfortable and no acute distress Orientation/consciousness: patient oriented x3 HEENT Other: Unremarkable Head: Yes normal to inspection Neck Neck: Yes normal visual inspection Chest Chest palpation & inspection: normal inspection of the chest Resp Auscultation: clear to auscultation bilaterally Cardio Palpation: normal PMI Heart sounds: S1 normal heart sound present, S2 normal heart sound present, no gallops, no murmurs and no rubs GI Palpation (GI): Soft to palpation Back/Spine/Pelvis Other: unremarkable Skin General skin exam: no rashes or lesions noted Neuro General: patient oriented x3 Extrem General: Yes normal to inspection Psych Mental Status: mental status grossly normal Objective Labs and Meds 07/12/23 06:11 07/17/23 08:45 Lab results: Laboratory Results - last 24 hr 07/17/23 07/17/23 05:53 08:45 Hold Purple Top SEE NOTE PT 31.2 H D INR 2.6 H Sodium 137 Potassium 3.6 Chloride 91 L Carbon Dioxide 37 H Anion Gap 13 BUN 48 H Creatinine 1.28 Estim Creat Clear Calc 41.7 Estimated GFR 53 Random Glucose 90 Calcium 9.3 Progress Note: A&P Assessment and plan (1) Acute on chronic right heart failure: Status: Acute (2) Pulmonary hypertension: Status: Acute (3) Cardiomyopathy: Status: Acute Plan In the recent echocardiogram, LVEF 45-50%. Dilated right ventricle with reduced function. Significant biatrial enlargement. Moderate pulmonary hypertension with increased right heart pressures. Clinically, he seems essentially euvolemic. So far, he is-7.5 L. Low blood pressure issues could be related to aggressive diuresis. Can hold the diuretic for a couple days or so. He is also off all the blood pressure medications. For diuretics, resume his home dose of Lasix in 2 days. We can add metolazone as needed during follow-up. Otherwise, spironolactone is also had because of hypokalemia. Further meds to be titrated as an outpatient once the blood pressure gets better. Follow-up in the clinic will be arranged. Discussed with Dr. Nava. Time Spent With Patient Time: Total time managing care of this patient today ____ minutes. Progress Note: Quality Stroke Does the patient have a stroke diagnosis?: No Procedures Date of Service Date of Service: 07/17/23
[2023-07-17 11:19] VITALS: BP 108/60; PULSE 70; RESP 20; TEMP 36.6; O2SAT 91
--- NOTE | 2023-07-17 11:36 | PM.DS ---
DS: Providers Provider Date of Service: 07/17/23 Date of admission: 07/11/23 14:00 Primary care physician: Minnie Lowe MD Consults: 07/11/23 14:29 Consult to Cardiology Routine Consulting Provider: [facility] Reason for consultation: chf exacerbation DS: Diagnosis Discharge Diagnosis (1) Acute on chronic right heart failure: Status: Acute (2) Pulmonary hypertension: Status: Acute (3) Cardiomyopathy: Status: Acute DS: Summary Hospital Course Hospital Course: admission HPI Chief Complaint: edema 83 year old male with history of PAF, pacemaker in place, HTN, HLD, CHF, SHALONDA, ED, tricuspid regurgitation, Prostate cancer, Bladder cancer presented to the ED earlier to evaluate swelling in the legs and scrotum. He states he was started on lasix 80mg by cardiology, Dr Davis, and states he lost 30 pounds. However, was recently hospitalized due to a fall and lasix was reduced to 60mg. States since discharge has been gaining weight (appears to be about 20 pounds per record) with increased swelling in the legs and scrotum. Has some CORNEJO but not overly bothersome. No orthopnea, PND, lightheadness, palpitations, or chest pain. No recent illness. He does not restrict fluids but states he doesnt use much sodium. However, he is drinking 3/4 gallon of milk daily (about 1200mg sodium) in addition to some soft drinks and water. On arrival VSS. Hematology studies unremarkable. Renal function baseline. Lytes normal except for K 3.1, CO2 31. Initial trop 96, repeat pending. BNP 352. INR 8.1 (has been doubling dose of lasix). Negative COVID-19. Ble venous duplex negative for acute dvt, but shows sequela of prior dvt. Biphasic doppler suggests elevated R heart pressures. CXR negative for any acute pulmonary abnormality. In the ED, given 10meq KCl IV, 5mg metolazone, and 80 mg IV lasix. Hospital course: Patient presented with increased leg edema, scrotal edema and weight gain, elevated BNP. His clinical presentation was consistent with acute exacerbation heart failue with reduced EF and initially was started on IV Lasix push, but due to peristent edema and positive fluid balance, he was then initiated on Lasix drip and Metolazone with good effect, he has since down 7.5 liters and blood pressure started trending down so Lisinopril, Novasc and Metolazone were stopped. He devellped mild renal insuficiency from the aggresive diuresis and in fact required some replacement due to low blood pressure. Renal function has recovered. He had hypokalemia d/t diuretics and was replaced. Potassium i snow 3.6. Aldactone 25 mg daily is being added to hep retain potassium. Of note he was on coumadin for AFIB with fluctuating INR levels, when he presented INR was 8 and was on hold until it dropped to less than and instrument and electrical technician advised transitioning to eliquis 5 bid. Due to blood pressure on lower side, lisinopril, Norvasc have been discontinued and he is to resume Lasix home dose in 2 days. Echo on 07/11, EF 45-50%, HypOkalemia d/t diuretics, replace oraly, added Aldactone, repeat labs within a week #Elevated troponins, type 2 mi from acute heart failure #Paroxysmal atrial fibrillation, rate controlled #Supratherapuetic INR, fluctuating INR levels, coumadin is changed to eliquis 5 mg bi #HTN--BP on low side so holding Lisinopril, Norvasc until he sees instrument and electrical technician or PCP #Mild JB--resolved. #HLD -statin Time Attestation Discharge coordination time: Greater than 30 minutes Quality: Safe Use of Opioids Does Pt have an Active Cancer Diagnosis on the Problem List?: No Quality: Stroke Does the patient have a stroke diagnosis?: No Physical Exam Vital Signs: Vital Signs: Last Vital Signs Temp 97.8 F 07/17/23 11:19 Pulse 70 07/17/23 11:19 Resp 20 07/17/23 11:19 BP 108/60 07/17/23 11:19 Pulse Ox 91 L 07/17/23 11:19 O2 Del Method Room Air 07/17/23 11:19 O2 Flow Rate 2 07/17/23 07:43 BMI result Body Mass Index 32.6 DS: Data Data Completed and Pending Completed studies during hospitalization [Text1]: Procedures Insertion of Infusion Device into Superior Vena Cava, Percutaneous Approach (05/17/23) Ultrasonography of Superior Vena Cava, Guidance (05/17/23) Labs on day of discharge: Laboratory Results - last 24 hr 07/17/23 07/17/23 05:53 08:45 Hold Purple Top SEE NOTE PT 31.2 H D INR 2.6 H Sodium 137 Potassium 3.6 Chloride 91 L Carbon Dioxide 37 H Anion Gap 13 BUN 48 H Creatinine 1.28 Estim Creat Clear Calc 41.7 Estimated GFR 53 Random Glucose 90 Calcium 9.3 Discharge Plan Discharge Anticipated Discharge Date/Time: 07/17/23 11:31 Patient Disposition: Home Health Service Discharge Diagnosis: Acute on chronic heart failure, hypokalemia Referrals: Minnie Lowe MD [Primary Care Provider] - 1 Week Discharge Medications: New Eliquis 5 mg Tablet 5 mg PO BID Qty: 60 2RF spironolactone [Aldactone] 25 mg tablet 25 mg PO DAILY Qty: 60 0RF Continued calcium carbonate-vitamin D3 600 mg-5 mcg (200 unit) Tablet 1 tab PO DAILY cholecalciferol (vitamin D3) 25 mcg (1,000 unit) Tablet 25 mcg PO DAILY ferrous sulfate 325 mg (65 mg iron) tablet 325 mg PO DAILY multivitamin Tablet 1 tab PO DAILY tamsulosin 0.4 mg capsule 0.4 mg PO BEDTIME 90 Days Qty: 90 3RF magnesium oxide 400 mg (241.3 mg magnesium) tablet 400 mg PO DAILY furosemide [Lasix] 40 mg tablet 80 mg PO DAILY Discontinued amlodipine 2.5 mg tablet 2.5 mg PO DAILY lisinopril 40 mg tablet 40 mg PO DAILY acetaminophen [Tylenol Arthritis Pain] 650 mg tablet extended release 650 mg PO DAILY Discharge Orders: Discharge Order (Routine); Ordered 07/17/23 Ordered By: Wily Nava Diet: Low salt diet Activity on Discharge: As tolerated Stand Alone Forms: Patient Portal Discharge page Care Plan Goals: recovery from heart failure Health Concerns: Acute on chronic heart failure Hypokalemia Plan of Treatment: Take your medications as prescribed Start taking Lasix on Follow up with Dr. Ryan Plunkettactone is new medication You will have lab work done next week to check potassium Stop taking Lisinopril and Amlodipine until you see Dr. Davis Avoid salty food and not drinking more than 1500 cc of water daily, weight yourself daily and if your weight goes up by 2 Ib in a single day, call your doctor Assessment: see above
--- NOTE | 2023-07-17 12:25 | MHC.CM.PN ---
PT MEDICALLY CLEARED FOR DC HOME, HOSPITALIST ORDERED VNA SERVICES HOWEVER CM MET W/PT WHO REPORTS HE IS LEAVING FOR [place] ON SUNDAY MORNING AND DECLINES VNA SERVICES, PT WILL DC ON AND HAS A $30 COPAY, DISCOUNT CARDS DID NOT APPLY WHEN CM CALLED NUMBERS INTO [facility], PT AWARE AND REPORTS NO ISSUES W/COVERING THE COST, FAMILY WILL TRANSPORT.
[2023-07-17] MEDS: Spironolactone 25 MG TABLET PO (13:02)
== END 2023-07-17 13:42 | disposition home health service (06) | DRG 280 ==
LOC: HO.ED 12:28 → HO.EDOVER 14:10 → HO.IMC 15:09
PROVIDERS: Physician Assistant; Physician Assistant Medical; Admitting Provider Physician Assistant; Emergency Provider Emergency Medicine Emergency Medical Services; PCP Internal Medicine; Visit Provider Internal Medicine
DX: I11.0 Hypertensive heart disease with heart failure (principal); I21.A1 Myocardial infarction type 2; I50.33 Acute on chronic diastolic (congestive) heart failure; N17.9 Acute kidney failure, unspecified; I48.19 Other persistent atrial fibrillation; I27.29 Other secondary pulmonary hypertension; I07.1 Rheumatic tricuspid insufficiency; I49.5 Sick sinus syndrome; I42.9 Cardiomyopathy, unspecified; E87.6 Hypokalemia; R79.1 Abnormal coagulation profile; I50.813 Acute on chronic right heart failure; G47.33 Obstructive sleep apnea (adult) (pediatric); Z95.0 Presence of cardiac pacemaker; Z79.01 Long term (current) use of anticoagulants; Z86.718 Personal history of other venous thrombosis and embolism; Z20.822 Contact with and (suspected) exposure to COVID-19; Z79.899 Other long term (current) drug therapy
CPT/HCPCS: 36415; 71045; 80048; 80051; 80053; 83735; 83880; 84484; 85025; 85610; 85730; 87635; 93005; 93306; 93970; 99212; 99285; J1940; J3480; Q9957

== ENCOUNTER → 2023-07-11 14:00 | Outpatient (BNV) | payer MEDICARE, OTHER, SELFPAY | PROVIDERS: Admitting Provider Physician Assistant; Emergency Provider Emergency Medicine Emergency Medical Services; PCP Internal Medicine; Visit Provider Physician Assistant | DX: I50.813 Acute on chronic right heart failure (principal); I27.20 Pulmonary hypertension, unspecified; I42.9 Cardiomyopathy, unspecified | CPT/HCPCS: 99223; 99232; 99233; 99238; G0180 ==

== ENCOUNTER → 2023-07-11 14:00 | Outpatient (BNV) | payer MEDICARE, OTHER, SELFPAY | PROVIDERS: Admitting Provider Physician Assistant; Emergency Provider Emergency Medicine Emergency Medical Services; PCP Internal Medicine; Visit Provider Internal Medicine Cardiovascular Disease | DX: I50.9 Heart failure, unspecified (principal); Z95.0 Presence of cardiac pacemaker; I48.0 Paroxysmal atrial fibrillation; R94.31 Abnormal electrocardiogram [ECG] [EKG]; I35.1 Nonrheumatic aortic (valve) insufficiency; I34.0 Nonrheumatic mitral (valve) insufficiency | CPT/HCPCS: 93010; 93306; 99222; 99233 ==

== ENCOUNTER → 2023-08-06 23:59 | Outpatient (BNV) | payer MEDICARE, OTHER, SELFPAY ==
--- NOTE | 2023-08-08 14:36 | A.OFFVIS_ITS ---
Intake Intake Visit Reasons: Remote Device Check- [employer] Allergies No Known Allergies Allergy (Verified 08/07/23 14:39) [facility] Medical History Cardiomyopathy Pulmonary hypertension Pacemaker Nonrheumatic tricuspid (valve) insufficiency Chronic right heart failure Current use of anticoagulant therapy Anticoagulated on Coumadin Right rib fracture CHF (congestive heart failure) Nocturnal hypoxemia SHALONDA (obstructive sleep apnea) Peripheral edema Annual physical exam Left tennis elbow Essential hypertension PAF (paroxysmal atrial fibrillation) History of hydrocele Nocturia Bladder outlet obstruction Bladder cancer Prostate cancer Hyperlipidemia HTN (hypertension) Normally functioning cardiac pacemaker present Varicose veins of bilateral lower extremities with other complications History of atrial fibrillation Surgical History History of hydrocelectomy Hx of varicose vein stripping Hx of subdural hematoma History of phacoemulsification of cataract of both eyes with intraocular lens implantation Hx of cardiac pacemaker Hx of colonoscopy Hx of parathyroidectomy Hx of cystoscopy Family History Father Cancer Prostate cancer Mother Cancer, Onset Age: 85 Son No problems noted. Daughter No problems noted. Maternal Grandfather No problems noted. Maternal Grandmother No problems noted. Paternal Grandfather No problems noted. Paternal Grandmother No problems noted. Social History Household Members: Spouse Housing: House Are you a primary child care leader to a significant other at home: No Do you presently have visiting nurse or other home services: No Alcohol intake: current Alcohol intake frequency: holidays/special occasions only Alcohol type: wine Patient Tobacco Use Status: Never used Tobacco e-Cigarette/Vaping Use: Never Used Advance Directives Date on File: 05/02/21 service: No Current occupational status: retired Cognitive needs: No Hearing needs: No Vision needs: Yes Office Procedures Cardiac Device Check Cardiac Device Check Details: Date of service- 08/06/2023 ; Battery life 40%; RA sensing amplitude intermittently below limit, otherwise normal lead parameters; AP 7%; SYSTEM DEVELOPER ASSOCIATE MANAGER 93%. Overall normal device function. [id number] Cardiac Device Interrogation, pacemaker Procedure code (CPT) selection complete Assessment & Plan Assessment & Plan (1) Chronic right heart failure: Comment: PATIENT IS A KNOWN CASE OF CHRONIC RIGHT-SIDED HEART FAILURE, HE HAD RATHER SEVERE EDEMA OF LOWER EXTREMITIES, BACK ABOUT 3 MONTHS AGO, WHICH HAS IMPROVED WITH DIURESIS. THIS HAS RESULTED IN A WEIGHT LOSS OF ABOUT 36 LB. Code(s): I50.812 - Chronic right heart failure Plan x Coding Level of Care Code Procedure Only Diagnoses Chronic right heart failure I50.812 CPT Codes Cardiac Device Check - Cardiac Device 12: [id number] Cardiac Device Interrogation, pacemaker ([id number])
== END ==
PROVIDERS: PCP Internal Medicine; Visit Provider Internal Medicine
DX: I50.812 Chronic right heart failure (principal); Z95.0 Presence of cardiac pacemaker
CPT/HCPCS: 93294

== ENCOUNTER 2023-08-07 14:07 | Outpatient (REF) | payer MEDICARE, OTHER, SELFPAY | END 2023-08-07 14:08 | disposition home or self-care (01) | LOC: HO.LAB 14:07 | PROVIDERS: PCP Internal Medicine; Visit Provider Urology | DX: C67.9 Malignant neoplasm of bladder, unspecified (principal); N52.9 Male erectile dysfunction, unspecified; Z85.46 Personal history of malignant neoplasm of prostate; Z79.01 Long term (current) use of anticoagulants; Z79.899 Other long term (current) drug therapy | CPT/HCPCS: 52000; 88121; 99212 ==

== ENCOUNTER 2023-08-07 14:07 | Outpatient (AMB) | payer MEDICARE, OTHER, SELFPAY ==
--- NOTE | 2023-08-07 14:37 | A.OFFVIS_ITS ---
Intake Intake Visit Reasons: Cysto/PSA(Set)VM to confirm Intake Note: Patient is Present for Cystoscopy Urology Med: Tamsulosin Antibiotic Allergy: None Blood Thinner: Eliquis URO- G Disposable Cystoscope lot: [id number] exp: 10/21/23 Allergies No Known Allergies Allergy (Verified 08/14/23 11:28) HPI HPI Comments History of Present Illness Details Monica is a pleasant male. He is a patient of Dr. Lowe. He is seen for the following urologic conditions - prostate cancer - bladder cancer - erectile dysfunction Cystoscopy normal Yearly followup Prostate cancer brachytherapy 2015 [facility] Prostate cancer diagnosed by Dr. Joe Initial therapy brachytherapy at [facility] 2015 PSA well controlled subsequently Had mild associated urgency frequency responsive to Flomax Occasional nocturia PSA 03/01 0.1, 03/02 0.1, 01/31 0.1 Continue surveillance Bladder cancer TURBT 2014 and 2015 Superficial bladder cancer diagnosed by Dr. Joe Management with TURBT Associated therapy immunotherapy induction at [facility] Check cystoscopies performed at [facility] - March 2022 Patient states last check cystoscopy normal Erectile Dysfunction Has not used any previous medication Previously prescribe sildenafil 100 mg Most common side effect is headache PFSH Medical History Cardiomyopathy Pulmonary hypertension Pacemaker Nonrheumatic tricuspid (valve) insufficiency Chronic right heart failure Current use of anticoagulant therapy Anticoagulated on Coumadin Right rib fracture CHF (congestive heart failure) Nocturnal hypoxemia SHALONDA (obstructive sleep apnea) Peripheral edema Annual physical exam Left tennis elbow Essential hypertension PAF (paroxysmal atrial fibrillation) History of hydrocele Nocturia Bladder outlet obstruction Bladder cancer Prostate cancer Hyperlipidemia HTN (hypertension) Normally functioning cardiac pacemaker present Varicose veins of bilateral lower extremities with other complications History of atrial fibrillation Surgical History History of hydrocelectomy Hx of varicose vein stripping Hx of subdural hematoma History of phacoemulsification of cataract of both eyes with intraocular lens implantation Hx of cardiac pacemaker Hx of colonoscopy Hx of parathyroidectomy Hx of cystoscopy Family History Father Cancer Prostate cancer Mother Cancer, Onset Age: 85 Son No problems noted. Daughter No problems noted. Maternal Grandfather No problems noted. Maternal Grandmother No problems noted. Paternal Grandfather No problems noted. Paternal Grandmother No problems noted. Social History Household Members: Spouse Housing: House Are you a primary wound care nurse to a significant other at home: No Do you presently have visiting nurse or other home services: No Alcohol intake: current Alcohol intake frequency: holidays/special occasions only Alcohol type: wine Patient Tobacco Use Status: Never used Tobacco e-Cigarette/Vaping Use: Never Used Advance Directives Date on File: 05/02/21 service: No Current occupational status: retired Cognitive needs: No Hearing needs: No Vision needs: Yes Review of Systems Const Denies chills and Denies fever(s) Card Reports no additional complaints and Denies syncope Resp Denies cough GI Denies abdominal pain and Denies heartburn Reports as per HPI and Denies change in libido Neuro Denies syncope Psych Denies change in libido Endo Denies change in libido Physical Exam Const General: cooperative, healthy appearing, comfortable and no acute distress Orientation/consciousness: patient oriented x3 HEENT Face and sinus: Yes normal facial exam Mouth: moist mucous membranes Neck Neck: Yes normal visual inspection, Yes full ROM and Yes trachea midline Chest Chest palpation & inspection: normal inspection of the chest Resp Effort & Inspection: normal respiratory effort, able to speak in complete sentences and no respiratory distress GI Inspection: Yes normal to inspection Back/Spine/Pelvis Cervical Spine: normal cervical lordosis Thoracic/Lumbar Spine: thoracic and lumbar spine normal to inspection Skin General skin exam: no rashes or lesions noted Neuro General: patient oriented x3, gait normal, tone normal and moves all extremities Extrem General: Yes normal to inspection and Yes capillary refill normal Office Procedures Cystoscopy Consent Discussed risk and benefit or proposed procedure with the patient. Information consent for procedure given to the patient. Discussed technical aspects, risks, benefits and alternatives in full. Addressed all of the patient's questions and concerns regarding the procedure. The patient demonstrated knowledge and un derstanding. They wish to proceed with this procedure. Preparation The patient was prepped in the usual manner. A residence counselor was present and in the room. Genitalia was prepped with betadine solution in a sterile manner. Lidocaine Jelly 2% was placed into the urethra and 16Fr flexible Olympus cystoscope was inserted into the meatus after adequate lubrication. Procedure Meatus circumcised Urethra anterior and posterior urethra normal Prostatic Urethra unremarkable Bladder examination with retroflexion of cystoscope Bladder Orifices normal shape and position Bladder Capacity medium Trabeculations - Cellule Formation - Diverticulum Formation - Mucosal Erythema - Bladder Tumor - [id number] DISPOSABLE SCOPE URO-G FLEXIBLE SCOPE Procedure code (CPT) selection complete Office Meds lidocaine HCl 2 % mucosal jelly in applicator Performing Provider: Kalia Tavera MD Performing Location: [facility] [place] [facility] Administered by: Jordin Penny LPN on 08/07/23 14:46 Dose Route Admin Location Dispensed Lot Number Expiration Date ND Risk Consulting Treasury Director 10 mL intra-urethral 10 mL nitrofurantoin monohydrate/macrocrystals 100 mg capsule Performing Provider: Kalia Tavera MD Performing Location: [facility] [place] Administered by: Jordin Penny LPN on 08/07/23 14:46 Dose Route Admin Location Dispensed Lot Number Expiration Date ND Risk Consulting Treasury Director 100 mg PO 1 cap naproxen 500 mg tablet Performing Provider: Kalia Tavera MD Performing Location: [facility] [place] Administered by: Jordin Penny LPN on 08/07/23 14:46 Dose Route Admin Location Dispensed Lot Number Expiration Date ND Risk Consulting Treasury Director 500 mg PO 1 tab Assessment & Plan Assessment & Plan (1) Prostate cancer: Comment: s/p RTX seed Code(s): C61 - Malignant neoplasm of prostate (2) Bladder cancer: Code(s): C67.9 - Malignant neoplasm of bladder, unspecified Qualifiers: Bladder location: unspecified site Qualified Code(s): C67.9 - Malignant neoplasm of bladder, unspecified Plan Twelve month follow-up cystoscopy Orders: Orders AMB Cystoscopy 08/07/23 C67.9 - Malignant neoplasm of bladder, unspecified AMB Urinalysis Automated 08/07/23 Z13.9 - Encounter for screening, unspecified FISH Bladder Cancer 08/07/23 C67.9 - Malignant neoplasm of bladder, unspecified Patient Instructions: Imaging studies, laboratory and physical exam results were discussed and reviewed in detail. No major barriers to patient understanding were identified. An opportunity to ask questions regarding the treatment plan was provided. All questions were answered. The patient expressed understanding and agreement with the above treatment plan. The patient is aware they should contact our office by phone for worsening of their current condition or the appearance of new urologic symptoms. Compliance is encouraged with any medications and followup testing that is ordered. It is a privilege to participate in the urologic care of your patient. If you have any questions or concerns regarding treatment for the above conditions, or other urologic issues, please do not hesitate to contact me. The office telephone contact is [phone]. This note is constructed using voice recognition software. While every effort has been made to ensure accuracy inspector multifocal lens errors may have been included. Yours sincerely, Dr Kalia Tavera MD, [facility] - [facility]rology Providers of Expert, Compassionate Care for the Genitourinary System Coding Level of Care Code Est Pt Level 4 (62451) Diagnoses Prostate cancer C61 Malignant neoplasm of urinary bladder, unspecified site C67.9 Bladder location: unspecified site CPT Codes Cystoscopy - CPT: 06539-[id number] ([id number])
== END 2023-08-07 15:13 | disposition home or self-care (01) ==
PROVIDERS: PCP Internal Medicine; Visit Provider Urology
DX: C67.9 Malignant neoplasm of bladder, unspecified (principal)
CPT/HCPCS: 52000; 99213

== ENCOUNTER 2023-08-08 15:09 | Outpatient (AMB) | payer MEDICARE, OTHER, SELFPAY ==
--- NOTE | 2023-08-08 15:11 | A.OFFVIS_ITS ---
Intake Vital Signs 08/08/23 15:12 Height 5 ft 4 in Weight 196 lb 3.382 oz BMI 33.7 BP 130/72 Blood Pressure Location Lt brachial Position Sitting Pulse 69 Intake Visit Reasons: [facility] [place] dc fu Intake Note: Follow-up [facility] [place] dc feeling ok Supervisor Accounts Receivable Required: No Allergies No Known Allergies Allergy (Verified 08/07/23 14:39) Medication List - Last Reconciled 08/08/23 by Ever Davis MD apixaban (Eliquis) 5 mg PO BID calcium carbonate-vitamin D3 600 mg-5 mcg (200 unit) 1 tab PO DAILY cholecalciferol (vitamin D3) 25 mcg PO DAILY ferrous sulfate 325 mg PO DAILY furosemide (Lasix) 80 mg PO DAILY multivitamin 1 tab PO DAILY spironolactone (Aldactone) 25 mg PO DAILY tamsulosin 0.4 mg PO BEDTIME 90 days HPI HPI Comments History of Present Illness Details Jung returns for follow-up regarding chronic atrial fibrillation as well as congestive heart failure. Recently hospitalized for heart failure exacerbation. He underwent diuresis and lost a significant amount of weight. Per documentation, he lost about 7.5 L. He states that he is actually doing much better. Not much of shortness of breath and that is about his baseline. His leg swelling is better but he states it has not completely gone. Scrotum is also improved. [facility], [facility] Medical History Cardiomyopathy Pulmonary hypertension Pacemaker Nonrheumatic tricuspid (valve) insufficiency Chronic right heart failure Current use of anticoagulant therapy Anticoagulated on Coumadin Right rib fracture CHF (congestive heart failure) Nocturnal hypoxemia SHALONDA (obstructive sleep apnea) Peripheral edema Annual physical exam Left tennis elbow Essential hypertension PAF (paroxysmal atrial fibrillation) History of hydrocele Nocturia Bladder outlet obstruction Bladder cancer Prostate cancer Hyperlipidemia HTN (hypertension) Normally functioning cardiac pacemaker present Varicose veins of bilateral lower extremities with other complications History of atrial fibrillation Surgical History History of hydrocelectomy Hx of varicose vein stripping Hx of subdural hematoma History of phacoemulsification of cataract of both eyes with intraocular lens implantation Hx of cardiac pacemaker Hx of colonoscopy Hx of parathyroidectomy Hx of cystoscopy Family History Father Cancer Prostate cancer Mother Cancer, Onset Age: 85 Son No problems noted. Daughter No problems noted. Maternal Grandfather No problems noted. Maternal Grandmother No problems noted. Paternal Grandfather No problems noted. Paternal Grandmother No problems noted. Social History Household Members: Spouse Housing: House Are you a primary child caregiver to a significant other at home: No Do you presently have visiting nurse or other home services: No Alcohol intake: current Alcohol intake frequency: holidays/special occasions only Alcohol type: wine Patient Tobacco Use Status: Never used Tobacco e-Cigarette/Vaping Use: Never Used Advance Directives Date on File: 05/02/21 service: No Current occupational status: retired Cognitive needs: No Hearing needs: No Vision needs: Yes Review of Systems Const Denies chills, Denies fatigue, Denies fever(s), Denies frequent falls, Denies weakness, Denies weight gain and Denies weight loss ENT Denies dizziness Card Denies chest pain, Denies leg edema, Denies lightheadedness, Denies palpitations, Denies dyspnea, Denies dyspnea on exertion, Denies orthopnea and Denies other (loss of consciousness) Resp Denies cough, Denies dyspnea and Denies dyspnea on exertion GI Denies hematochezia and Denies change in stool character Musc Denies abnormal gait, Denies muscle weakness, Denies numbness, Denies radiating pain into limb and Denies tingling Neuro Denies abnormal gait, Denies dizziness, Denies frequent falls, Denies numbness, Denies tingling and Denies weakness Endo Denies fatigue and Denies palpitations Physical Exam Vital Signs: Last Vital Signs Pulse 69 08/08/23 15:12 BP 130/72 08/08/23 15:12 BMI result Body Mass Index 33.7 Const General: comfortable and no acute distress Orientation/consciousness: patient oriented x3 HEENT Other: Unremarkable Head: Yes normal to inspection Neck Neck: Yes normal visual inspection Chest Chest palpation & inspection: normal inspection of the chest Resp Auscultation: clear to auscultation bilaterally Cardio Palpation: normal PMI Heart sounds: S1 normal heart sound present, S2 normal heart sound present, no gallops, no murmurs and no rubs GI Palpation (GI): Soft to palpation Back/Spine/Pelvis Other: unremarkable Skin General skin exam: no rashes or lesions noted Neuro General: patient oriented x3 Extrem Other: 2+ edema. General: Yes normal to inspection Psych Mental Status: mental status grossly normal Assessment & Plan Assessment & Plan (1) Chronic right heart failure: Code(s): I50.812 - Chronic right heart failure Plan: Add Lasix 40 mg p.m.. He can continue 80 mg a.m.. If still overloaded, probably increase it to 80 mg/80 mg or add some metolazone. Check labs before next visit. He did have hypokalemia and hence spironolactone was added. As we are increasing the diuretic, we can add some additional potassium. (2) Nonrheumatic tricuspid (valve) insufficiency: Code(s): I36.1 - Nonrheumatic tricuspid (valve) insufficiency Plan: Echocardiogram had [id number] tricuspid regurgitation. Again no specific management. Diuretics only. (3) Persistent atrial fibrillation: Code(s): I48.19 - Other persistent atrial fibrillation Plan: Continue Eliquis. (4) Ascending aorta dilatation: Code(s): I77.810 - Thoracic aortic ectasia Plan: In the most recent echocardiogram, size 4.6 cm. With his many comorbidities and age and frailty, may not be suitable for any interventions even if it is enlarging. (5) Essential hypertension: Code(s): I10 - Essential (primary) hypertension Plan: Stable. He has been on lisinopril and amlodipine in the past. Not in his list anymore. Plan To return in 4 weeks to reassess CHF. Orders: Orders Basic Metabolic Panel 4 Weeks I50.22 - Chronic systolic (congestive) heart failure Medications: New furosemide (Lasix) Take 80mg am and 40mg afternoon. 40 mg PO DAILY 90 days 90 tabs 3RF potassium chloride ER 20 mEq PO DAILY 90 days 90 tabs 3RF Coding Level of Care Code Est Pt Level 4 (92755) Diagnoses Chronic right heart failure I50.812 Nonrheumatic tricuspid (valve) insufficiency I36.1 Persistent atrial fibrillation I48.19 Ascending aorta dilatation I77.810 Essential hypertension I10
[2023-08-08 15:12] VITALS: BP 130/72; PULSE 69; BMI 33.7
== END 2023-08-08 15:37 | disposition home or self-care (01) ==
PROVIDERS: PCP Internal Medicine; Visit Provider Internal Medicine
DX: I50.812 Chronic right heart failure (principal); I36.1 Nonrheumatic tricuspid (valve) insufficiency; I48.19 Other persistent atrial fibrillation; I77.810 Thoracic aortic ectasia; I10 Essential (primary) hypertension
CPT/HCPCS: 99214

== ENCOUNTER → 2023-08-08 15:09 | Outpatient (BNVA) | payer MEDICARE, OTHER, SELFPAY | PROVIDERS: PCP Internal Medicine; Visit Provider Internal Medicine | DX: I11.0 Hypertensive heart disease with heart failure (principal); I50.812 Chronic right heart failure; I36.1 Nonrheumatic tricuspid (valve) insufficiency; I48.19 Other persistent atrial fibrillation; I77.810 Thoracic aortic ectasia | CPT/HCPCS: 99212 ==

== ENCOUNTER 2023-08-14 11:17 | Outpatient (AMB) | payer MEDICARE, OTHER, SELFPAY ==
--- NOTE | 2023-08-14 11:22 | MHC.OFFVIS ---
Intake Vital Signs 08/14/23 11:23 Height 5 ft 4 in Weight 196 lb BMI 33.6 Intake Visit Reasons: 4 month leg check Intake Note: Patient presents for a 4 month leg check. Patient states he was in the hospital for about 7 weeks for broken ribs and issues with his digestion due to his fall. Has swelling and redness on both legs. Right leg is worse. States he's taking a water pill to try to help with swelling. Accompanied by: Self / Same As Patient Allergies No Known Allergies Allergy (Verified 08/14/23 11:28) HPI 4 month leg check HPI Details Very pleasant 83-year-old gentleman presents for routine surveillance follow-up regarding venous disease. He unfortunately has had significant issues since his last visit. If he had a fall with several broken ribs. He also has a history of chronic AFib as well as congestive heart failure. He had been in the hospital for several weeks. He has had significant edema of the lower extremities. [facility] Medical History Cardiomyopathy Pulmonary hypertension Pacemaker Nonrheumatic tricuspid (valve) insufficiency Chronic right heart failure Current use of anticoagulant therapy Anticoagulated on Coumadin Right rib fracture CHF (congestive heart failure) Nocturnal hypoxemia SHALONDA (obstructive sleep apnea) Peripheral edema Annual physical exam Left tennis elbow Essential hypertension PAF (paroxysmal atrial fibrillation) History of hydrocele Nocturia Bladder outlet obstruction Bladder cancer Prostate cancer Hyperlipidemia HTN (hypertension) Normally functioning cardiac pacemaker present Varicose veins of bilateral lower extremities with other complications History of atrial fibrillation Surgical History History of hydrocelectomy Hx of varicose vein stripping Hx of subdural hematoma History of phacoemulsification of cataract of both eyes with intraocular lens implantation Hx of cardiac pacemaker Hx of colonoscopy Hx of parathyroidectomy Hx of cystoscopy Family History Father Cancer Prostate cancer Mother Cancer, Onset Age: 85 Son No problems noted. Daughter No problems noted. Maternal Grandfather No problems noted. Maternal Grandmother No problems noted. Paternal Grandfather No problems noted. Paternal Grandmother No problems noted. Social History Household Members: Spouse Housing: House Are you a primary director day care center to a significant other at home: No Do you presently have visiting nurse or other home services: No Alcohol intake: current Alcohol intake frequency: holidays/special occasions only Alcohol type: wine Patient Tobacco Use Status: Never used Tobacco e-Cigarette/Vaping Use: Never Used Advance Directives Date on File: 05/02/21 service: No Current occupational status: retired Cognitive needs: No Hearing needs: No Vision needs: Yes Review of Systems Const All systems reviewed & are unremarkable except as noted in HPI and below Reports no additional complaints ENT Reports Normal hearing present Card Denies chest pain, Denies chest pain at rest, Denies chest pain with activity and Denies pedal edema Resp Denies cough GI Denies abdominal pain Musc Denies abnormal gait, Denies muscle cramps and Denies radiating pain into limb Skin/Breast Denies skin ulcer and Denies wounds Neuro Reports Normal hearing present and Denies abnormal gait Psych Reports no additional complaints Physical Exam Vital Signs: BMI result Body Mass Index 33.6 Const General: cooperative, healthy appearing and comfortable Orientation/consciousness: oriented to person, oriented to place and oriented to time HEENT Head: Yes normal to inspection Neck Neck: Yes normal visual inspection Carotids: no bruits Chest Chest palpation & inspection: normal inspection of the chest Resp Effort & Inspection: normal respiratory effort and able to speak in complete sentences Auscultation: clear to auscultation bilaterally, no crackles, no rales, no rhonchi and no wheezes Cardio Rate: regular rate Rhythm: regular rhythm Heart sounds: S1 normal heart sound present and S2 normal heart sound present Bruits: no carotid bruits Peripheral pulses: Peripheral pulses 2+ throughout GI Inspection: Yes normal to inspection Skin Wounds: no wounds Hair: normal Neuro General: oriented to person, oriented to place and oriented to time Cranial nerves: Yes CN's II-XII intact bilaterally and Yes Normal hearing present Cognition (Neuro): normal cognition Motor exam (neuro): 5/5 motor strength present throughout Extrem Other: venous exam: +2 edema General: No clubbing, No cyanosis and No edema Psych Appearance: grossly normal Mental Status: mental status grossly normal Speech and movement: Normal speech and movement present Assessment & Plan Assessment & Plan (1) Bilateral lower extremity edema: Code(s): R60.0 - Localized edema Plan: Patient has significant amount of lower extremity edema. At the current time he has had multiple medical issues. At the current time would like to manage this electively. I will bring him back in approximately 3 months time for routine leg check. At that time I hope he does continue to diurese and improve. He will follow up with us once again in approximately 3 months time. In addition we did discuss conservative measures including compression elevation and exercise. Thank you for allowing us to assist in his care. Coding Level of Care Code Est Pt Level 3 (95020) Diagnoses Bilateral lower extremity edema R60.0
[2023-08-14 11:23] VITALS: BMI 33.6
== END 2023-08-14 11:45 | disposition home or self-care (01) ==
LOC: HO.HVS 11:18
PROVIDERS: PCP Internal Medicine; Visit Provider Surgery Vascular Surgery
DX: R60.0 Localized edema (principal)
CPT/HCPCS: 99213

== ENCOUNTER → 2023-08-14 11:17 | Outpatient (BNVA) | payer MEDICARE, OTHER, SELFPAY | PROVIDERS: PCP Internal Medicine; Visit Provider Surgery Vascular Surgery | DX: R60.0 Localized edema (principal) | CPT/HCPCS: 99212 ==

== ENCOUNTER 2023-08-21 09:53 | Outpatient (AMB) | payer MEDICARE, OTHER, SELFPAY ==
[2023-08-21 10:03] VITALS: BP 110/68; PULSE 67; O2SAT 96; BMI 35.2
--- NOTE | 2023-08-21 10:03 | MHC.PC.OV ---
Vital Signs 08/21/23 10:03 Height 5 ft 4 in Weight 205 lb BMI 35.2 BP 110/68 Blood Pressure Location Lt brachial Position Sitting Pulse 67 Pulse Source Pulse Oximeter Pulse Oximetry (%) 96 Oxygen Delivery Method Room Air Intake Visit Reasons: [facility], broken ribs Intake Note: Pt is here today for a Hospital follow up visit. Allergies No Known Allergies Allergy (Verified 08/21/23 10:05) Medication List - Last Reconciled 08/21/23 by Minnie Lowe MD apixaban (Eliquis) 5 mg PO BID calcium carbonate-vitamin D3 600 mg-5 mcg (200 unit) 1 tab PO DAILY cholecalciferol (vitamin D3) 25 mcg PO DAILY ferrous sulfate 325 mg PO DAILY furosemide (Lasix) 40 mg PO DIRECTED multivitamin 1 tab PO DAILY potassium chloride ER 20 mEq PO DAILY 90 days spironolactone (Aldactone) 25 mg PO DAILY tamsulosin 0.4 mg PO BEDTIME 90 days Tobacco use date assessed: 08/21/23 HPI [facility], broken ribs HPI Details Patient presents for the follow-up of hospitalization at [facility] for [facility] weeks after fall with a complication of fracture ribs and right-sided heart failure. Patient is feeling better ambulating with a cane and reports persistent weakness in the lower extremities which is slowly getting better with patient increasing physical activity. he denies chest pain shortness for breath. Patient reports persistent extensive bilateral lower extremities swelling due to lymphedema and right-sided heart failure. He follows up with Cardiology. Patient has been taking Eliquis for chronic AFib. Beta-blockers were discontinue during the hospitalization because of low blood pressure on high dose of diuretics. [facility] Medical History (Updated 08/21/23 @ 15:59 by Minnie Lowe MD) Cardiomyopathy Pulmonary hypertension Pacemaker Nonrheumatic tricuspid (valve) insufficiency Chronic right heart failure Current use of anticoagulant therapy Anticoagulated on Coumadin Right rib fracture CHF (congestive heart failure) Nocturnal hypoxemia SHALONDA (obstructive sleep apnea) Peripheral edema Annual physical exam Left tennis elbow Essential hypertension PAF (paroxysmal atrial fibrillation) History of hydrocele Nocturia Bladder outlet obstruction Bladder cancer Prostate cancer Hyperlipidemia HTN (hypertension) Normally functioning cardiac pacemaker present Varicose veins of bilateral lower extremities with other complications Surgical History History of hydrocelectomy Hx of varicose vein stripping Hx of subdural hematoma History of phacoemulsification of cataract of both eyes with intraocular lens implantation Hx of cardiac pacemaker Hx of colonoscopy Hx of parathyroidectomy Hx of cystoscopy Family History Father Cancer Prostate cancer Mother Cancer, Onset Age: 85 Son No problems noted. Daughter No problems noted. Maternal Grandfather No problems noted. Maternal Grandmother No problems noted. Paternal Grandfather No problems noted. Paternal Grandmother No problems noted. Social History Household Members: Spouse Housing: House Are you a primary direct care counselor to a significant other at home: No Do you presently have visiting nurse or other home services: No Alcohol intake: current Alcohol intake frequency: holidays/special occasions only Alcohol type: wine Patient Tobacco Use Status: Never used Tobacco e-Cigarette/Vaping Use: Never Used Advance Directives Date on File: 05/02/21 service: No Current occupational status: retired Cognitive needs: No Hearing needs: No Vision needs: Yes Questionnaire Thrive Questionnaire Date Thrive assessed: 07/12/23 TIMMY-7 AMB Questionnaire TIMMY-7 Date TIMMY - 7 assessed: 06/25/23 Source: Developed by Drs. Chago Lowery, Jennifer Farah, Ricardo Godoy and colleagues, with an educational jared from [employer]. Review of Systems Const All systems reviewed & are unremarkable except as noted in HPI and below Reports no additional complaints Eyes Reports no additional complaints ENT Reports no additional complaints Card Reports no additional complaints Resp Reports no additional complaints GI Reports no additional complaints Reports no additional complaints Physical exam (Primary Care) Vital Signs: Last Vital Signs Pulse 67 08/21/23 10:03 BP 110/68 08/21/23 10:03 Pulse Ox 96 08/21/23 10:03 Oxygen Delivery Method Room Air 08/21/23 10:03 BMI result Body Mass Index 35.2 Tobacco/Smoking Status: Tobacco use Status Tobacco use date assessed 08/21/23 08/21/23 10:10 Patient Tobacco Use Status Never used Tobacco 08/21/23 10:10 e-Cigarette/Vaping Use Never Used 08/21/23 10:10 Thrive Assessment: Date of Thrive Assessment Date Thrive assessed 07/12/23 08/21/23 10:10 Const General: no acute distress HENMT Head: Yes normal to inspection Neck Neck: Yes supple Resp Effort & Inspection: normal respiratory effort Auscultation: clear to auscultation bilaterally Cardio Rhythm: abnormal rhythm irregularly irregular Heart sounds: S1 normal heart sound present and S2 normal heart sound present GI Inspection: Yes normal to inspection Extrem Other: 4+ pitting edema bilaterally Assessment and Plan Assessment & Plan (1) Persistent atrial fibrillation: Comment: s/p pacemaker Code(s): I48.19 - Other persistent atrial fibrillation Plan: Continue Eliquis (2) Hypokalemia: Code(s): E87.6 - Hypokalemia Plan: Check basic metabolic panel (3) Chronic right heart failure: Comment: Echo 07/04: left ventricular ejection fraction 45-50%, moderately dilated right ventricle, moderate decreased, RV systolic function mild aortic and mitral regurgitation, moderately increased right ventricular systolic pressure Code(s): I50.812 - Chronic right heart failure Plan: Patient has been on spironolactone and high dose of furosemide for severe lower extremities but off beta blockers or SALOME inhibitors due to low blood pressure, follow-up with the cardiology (4) Ascending aorta dilatation: Code(s): I77.810 - Thoracic aortic ectasia (5) Bladder cancer: Comment: In remission follow-up with Dr. Tavera, negative cystoscopy at [id number] Code(s): C67.9 - Malignant neoplasm of bladder, unspecified Qualifiers: Bladder location: unspecified site Qualified Code(s): C67.9 - Malignant neoplasm of bladder, unspecified Plan: Follow-up with urology (6) Prostate cancer: Comment: s/p RTX seed Code(s): C61 - Malignant neoplasm of prostate Plan: Follow-up with urology, undetectable PSA for the last 3 years (7) Nocturnal hypoxemia: Comment: PATIENT DOES HAVE ASSOCIATED NOCTURNAL HYPOXEMIA. IT WAS CORRECTED WITH THE USE OF CPAP BUT RESIDUAL HYPOXEMIA REMAINED AND HE REQUIRED O2 SUPPLEMENTATION AT 1 L/MINUTE. WE WILL ORDER OXYGEN 1 L/MINUTE ALONG WITH THE CPAP. Code(s): G47.34 - Idiopathic sleep related nonobstructive alveolar hypoventilation Plan: Continue CPAP and supplemental O2 follow-up with pulmonology Orders: Orders Complete Blood Count Auto Diff Today E87.6 - Hypokalemia, I48.19 - Other persistent atrial fibrillation Comprehensive Met. Panel Today E87.6 - Hypokalemia, I48.19 - Other persistent atrial fibrillation Hemoglobin A1c Today E87.6 - Hypokalemia, I48.19 - Other persistent atrial fibrillation IRON PROFILE Today K92.2 - Gastrointestinal hemorrhage, unspecified Medications: Changed From furosemide (Lasix) Take 2 40mg tabs (80mg) in the morning. Take 1 40mg tab in the afternoon. 40 mg PO DIRECTED 90 tabs 3RF To furosemide (Lasix) Take 2 40mg tabs (80mg) in the morning. Take 1 40mg tab in the afternoon. 40 mg PO DIRECTED From spironolactone (Aldactone) 25 mg PO DAILY 60 tabs 0RF To spironolactone (Aldactone) 25 mg PO DAILY Coding Level of Care Code Est Pt Level 4 (19033) Diagnoses Persistent atrial fibrillation I48.19 Hypokalemia E87.6 Chronic right heart failure I50.812 Ascending aorta dilatation I77.810 Malignant neoplasm of urinary bladder, unspecified site C67.9 Bladder location: unspecified site Prostate cancer C61 Nocturnal hypoxemia G47.34
== END 2023-08-21 10:37 | disposition home or self-care (01) ==
LOC: HO.HMGC 09:54
PROVIDERS: PCP Internal Medicine; Visit Provider Internal Medicine
DX: I48.19 Other persistent atrial fibrillation (principal); I50.812 Chronic right heart failure; I77.810 Thoracic aortic ectasia; C67.9 Malignant neoplasm of bladder, unspecified; C61 Malignant neoplasm of prostate; E87.6 Hypokalemia; G47.34 Idiopathic sleep related nonobstructive alveolar hypoventilation
CPT/HCPCS: 99214

== ENCOUNTER 2023-08-21 10:38 | Outpatient (REF) | payer MEDICARE, OTHER, SELFPAY ==
[2023-08-21 13:16] LABS: MANUAL DIFF FLAG NO
[2023-08-21 13:31] LABS: Basophils Absolute Auto 0.1 X10*3/uL (0.0-0.2); Eosinophils Absolute Auto 0.2 X10*3/uL (0.0-0.4); Eosinophils Percent Auto 2.5 % (0-4); Hematocrit 36.4 % (42.0-52.0); Hemoglobin 11.3 g/dl (14.0-18.0); Imm Gran Abs Auto 0.02 X10*3/uL (0.00-0.03); Imm Gran Pct Auto 0.3 % (0.0-0.4); Lymphocytes Absolute Auto 1.5 X10*3/uL (1.2-4.9); Lymphocytes Percent Auto 23.5 % (20-40); Mean Corpuscular Hemoglobin 28.2 pg (27.0-33.0); Mean Corpuscular Volume 90.8 fL (80.0-98.0); Mean Platelet Volume 10.5 fL (9.4-12.4); Monocytes Percent Auto 16.5 % (2-11); Neutrophils Absolute Auto 3.5 x10*3/uL (2.0-8.3); Neutrophils Percent Auto 56.2 % (45-73); Platelet Count 197 X10*3/uL (160-400); Red Blood Count 4.01 X10*6/uL (4.60-5.80); Red Cell Distribution Width 16.1 % (11.0-16.0); White Blood Count 6.3 X10*3/uL (4.8-10.8)
[2023-08-21 13:59] LABS: Alanine Aminotransferase 16 U/L (0-40); Albumin Level 3.5 g/dL (3.5-5.0); Alkaline Phosphatase 145 U/L (39-117); Anion Gap 12 (12-20); Aspartate Amino Transferase 27 U/L (5-37); Blood Urea Nitrogen 32 mg/dL (9-16); Calcium 9.3 mg/dL (8.4-10.2); Carbon Dioxide 30 mmol/L (22-29); Chloride 104 mmol/L (96-108); Estimated Glomerular Filt Rate > 60; Glucose Random 85 mg/dL (60-115); Iron 26 mcg/dL (45-160); Percent Iron Saturation 8 % (15-50); Potassium 3.6 mmol/L (3.3-5.1); Sodium 142 mmol/L (135-145); Total Iron Binding Capacity 317 mcg/dL (228-428); Total Protein 7.2 g/dL (6.5-8.0); Unsaturated Iron Binding 291 ug/dL
[2023-08-21 14:06] LABS: Estimated Average Glucose 114 mg/dL; Hemoglobin A1c % 5.6 % (<6.0)
== END 2023-08-21 10:39 | disposition home or self-care (01) ==
LOC: HO.HMGCLDS 10:38
PROVIDERS: PCP Internal Medicine; Visit Provider Internal Medicine
DX: K92.2 Gastrointestinal hemorrhage, unspecified (principal); I48.19 Other persistent atrial fibrillation; E87.6 Hypokalemia
CPT/HCPCS: 36415; 80053; 83036; 83540; 85025

== ENCOUNTER 2023-08-28 13:39 | Outpatient (AMB) | payer MEDICARE, OTHER, SELFPAY ==
--- NOTE | 2023-08-28 13:40 | MHC.OFFVIS ---
Intake Intake Visit Reasons: Obstructive sleep apnea Intake Note: pt is on the phone for a follow up visit, on the phone to talk about cpap set up and current health issues. Retanned Leather Roller Required: No Allergies No Known Allergies Allergy (Verified 08/28/23 14:42) Medication List - Last Reconciled 08/28/23 by David Membreno MD apixaban (Eliquis) 5 mg PO BID calcium carbonate-vitamin D3 600 mg-5 mcg (200 unit) 1 tab PO DAILY cholecalciferol (vitamin D3) 25 mcg PO DAILY ferrous sulfate 325 mg PO DAILY furosemide (Lasix) 40 mg PO DIRECTED multivitamin 1 tab PO DAILY potassium chloride ER 20 mEq PO DAILY 90 days spironolactone (Aldactone) 25 mg PO DAILY tamsulosin 0.4 mg PO BEDTIME 90 days Do you need a note to return to daycare/school/sports/work: No HPI Obstructive sleep apnea HPI Details THIS 83 YEARS OLD GENTLEMAN, REQUESTED TELE VISIT BECAUSE HE COULD NOT COME TO THE OFFICE. HE WAS SCHEDULED TO HAVE AN OFFICE VISIT TO DISCUSS ABOUT THE CPAP DEVICE, THIS GENTLEMAN HAD HOME-BASED SLEEP STUDY WHICH SHOWED MODERATELY SEVERE OBSTRUCTIVE SLEEP APNEA AND NOCTURNAL HYPOXEMIA. THIS WAS FOLLOWED BY IS CPAP TITRATION STUDY IN THE SLEEP LAB DONE ON 01/21/2023. THEN THIS PATIENT WAS SEEN HERE ON 01/29 AND A CPAP DEVICE WAS ORDERED. PER TITRATION STUDY HE REQUIRED FULL FACE MASK WITH PRESSURE OF 15 CM TO TREAT HIS SLEEP APNEA DISORDER. 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 HE HAD FALLEN IN APRIL 2023 SUSTAINED MULTIPLE RIB FRACTURES. INITIALLY WAS IN THE HOSPITAL AND THEN SENT TO A REHAB FACILITY WHERE HE SPENT SEVERAL WEEKS.. SUBSEQUENTLY HE WAS AGAIN HOSPITALIZED IN RELATION TO ABDOMINAL PAIN AND OTHER MEDICAL ISSUES. BECAUSE OF THE BEING IN THE HOSPITAL IN AND OUT HE WAS NOT ABLE TO GET HIS CPAP DEVICE. DURING HIS HOSPITAL STAY HE WAS PROVIDED WITH THIS CPAP DEVICE AND HE SLEPT BETTER. NOW AT HOME HE HAS POOR SLEEP AGAIN. HE IS COMPLAINING OF FREQUENT AWAKENING AND HE IS FEELING TIRED AND SLEEPY DURING THE DAYTIME. [facility] Medical History (Updated 08/28/23 @ 14:54 by David Membreno MD) SHALONDA (obstructive sleep apnea) Cardiomyopathy Pulmonary hypertension Pacemaker Nonrheumatic tricuspid (valve) insufficiency Chronic right heart failure Current use of anticoagulant therapy Anticoagulated on Coumadin Right rib fracture CHF (congestive heart failure) Nocturnal hypoxemia Peripheral edema Annual physical exam Left tennis elbow Essential hypertension PAF (paroxysmal atrial fibrillation) History of hydrocele Nocturia Bladder outlet obstruction Bladder cancer Prostate cancer Hyperlipidemia HTN (hypertension) Normally functioning cardiac pacemaker present Varicose veins of bilateral lower extremities with other complications Surgical History History of hydrocelectomy Hx of varicose vein stripping Hx of subdural hematoma History of phacoemulsification of cataract of both eyes with intraocular lens implantation Hx of cardiac pacemaker Hx of colonoscopy Hx of parathyroidectomy Hx of cystoscopy Family History Father Cancer Prostate cancer Mother Cancer, Onset Age: 85 Son No problems noted. Daughter No problems noted. Maternal Grandfather No problems noted. Maternal Grandmother No problems noted. Paternal Grandfather No problems noted. Paternal Grandmother No problems noted. Social History Household Members: Spouse Housing: House Are you a primary women's health care nurse practitioner to a significant other at home: No Do you presently have visiting nurse or other home services: No Alcohol intake: current Alcohol intake frequency: holidays/special occasions only Alcohol type: wine Patient Tobacco Use Status: Never used Tobacco e-Cigarette/Vaping Use: Never Used Advance Directives Date on File: 05/02/21 service: No Current occupational status: retired Cognitive needs: No Hearing needs: No Vision needs: Yes Review of Systems Const All systems reviewed & are unremarkable except as noted in HPI and below Eyes Reports no additional complaints ENT Reports no additional complaints Card Denies chest pain, Reports irregular heart rhythm, Reports leg edema and Denies dyspnea on exertion Resp Denies cough, Denies excessive phlegm production, Denies dyspnea on exertion and Denies wheezing GI Reports no additional complaints Reports erectile dysfunction Musc Reports no additional complaints Skin/Breast Reports system reviewed and no additional complaints, except as documented Neuro Reports no additional complaints Psych Reports no additional complaints Aller/Immun Denies wheezing Physical Exam Const Other: TELE-VISIT NO PHYSICAL EXAM PERFORMED Results Reviewed Results Reviewed: CPAP TITRATION STUDY ON WAS SUCCESSFUL AND IS OBSTRUCTIVE EVENTS WELL HYPOXEMIA WAS CORRECTED WITH PRESSURE OF 15 CM USING FULLFACE MASK 2022 Assessment & Plan Assessment & Plan (1) Nocturnal hypoxemia: Comment: PATIENT DOES HAVE ASSOCIATED NOCTURNAL HYPOXEMIA. IT WAS CORRECTED WITH THE USE OF CPAP BUT RESIDUAL HYPOXEMIA REMAINED AND HE REQUIRED O2 SUPPLEMENTATION AT 1 L/MINUTE. WE WILL ORDER OXYGEN 1 L/MINUTE ALONG WITH THE CPAP. Code(s): G47.34 - Idiopathic sleep related nonobstructive alveolar hypoventilation Plan: FULLFACE MASK WITH PRESSURE OF 15 CM O2 1 L/MINUTE ALONG WITH THE CPAP (2) SHALONDA (obstructive sleep apnea): Comment: THE SLEEP STUDY WAS POSITIVE FOR MODERATELY SEVERE OBSTRUCTIVE SLEEP APNEA. HE ALSO HAD NOCTURNAL HYPOXEMIA. CPAP TITRATION STUDY ON 01/21, WAS SUCCESSFUL WITH PRESSURE OF 15 CM USING FULLFACE MASK. HE HAD PERSISTENT HYPOXEMIA WHICH REQUIRED O2 1 L/MINUTE TO CORRECT IT . Code(s): G47.33 - Obstructive sleep apnea (adult) (pediatric) Plan: CPAP ORDERS HAVE ALREADY BEEN SENT TO THE DME. EXPLANATION FOR DELAYED ELECTROENCEPHALOGRAPH TECHNICIAN OF THE CPAP IS BEING SENT . PATIENT IS GIVEN INSTRUCTIONS TO START USING THE CPAP SOON HE GETS IT. WILL RECHECK FOR COMPLIANCE IN ABOUT 6 WEEKS Telehealth Telehealth Location of provider rendering services: practice address Location of patient: address on file Patient Identification confirmed using: Name, : Yes Telehealth method: voice only Patient verbally consented to treatment: Yes Patient verbally consented to billing insurance company: Yes Patient informed of any privacy concerns related to visit: Yes Minutes spent on Phone/Video with Pt.: 20 Coding Level of Care Code Tele New Pt Level 4 (07922) Diagnoses Nocturnal hypoxemia G47.34 SHALONDA (obstructive sleep apnea) G47.33
== END 2023-08-28 14:43 | disposition home or self-care (01) ==
LOC: HO.HPS 13:39
PROVIDERS: PCP Internal Medicine; Visit Provider Internal Medicine
DX: G47.33 Obstructive sleep apnea (adult) (pediatric) (principal); G47.34 Idiopathic sleep related nonobstructive alveolar hypoventilation
CPT/HCPCS: 99442

== ENCOUNTER → 2023-08-28 13:39 | Outpatient (BNVA) | payer MEDICARE, OTHER, SELFPAY | PROVIDERS: PCP Internal Medicine; Visit Provider Internal Medicine ==

== ENCOUNTER 2023-09-05 13:26 | Outpatient (AMB) | payer MEDICARE, OTHER, SELFPAY ==
[2023-09-05 13:33] VITALS: BP 102/62; PULSE 77; BMI 34.4
--- NOTE | 2023-09-05 13:33 | A.OFFVIS_ITS ---
Intake Vital Signs 09/05/23 13:33 Height 5 ft 4 in Weight 200 lb 9.93 oz BMI 34.4 BP 102/62 Blood Pressure Location Lt brachial Position Sitting Pulse 77 Intake Visit Reasons: 4 wk f/up med chg HS Intake Note: 4 week follow up Supervisor Gluing Required: No Accompanied by: Self / Same As Patient Allergies No Known Allergies Allergy (Verified 09/05/23 13:36) Medication List - Last Reconciled 09/05/23 by Ever Davis MD apixaban (Eliquis) 5 mg PO BID calcium carbonate-vitamin D3 600 mg-5 mcg (200 unit) 1 tab PO DAILY cholecalciferol (vitamin D3) 25 mcg PO DAILY ferrous sulfate 325 mg PO DAILY furosemide (Lasix) 40 mg PO DIRECTED metolazone 2.5 mg PO DIRECTED multivitamin 1 tab PO DAILY potassium chloride ER 40 mEq (2 x 20 mEq) PO DAILY 90 days spironolactone (Aldactone) 25 mg PO DAILY tamsulosin 0.4 mg PO BEDTIME 90 days HPI HPI Comments History of Present Illness Details Jung returns for follow-up regarding chronic atrial fibrillation as well as congestive heart failure. Recently hospitalized for heart failure exacerbation. He underwent diuresis and lost a significant amount of weight. Per documentation, he lost about 7.5 L. He states that he is overall better but scrotum is still bothering him. It is still swollen up. He states that he is taking Lasix 80 mg in the morning and 40 mg in the afternoon. He is also taking metolazone twice a week, just started. Potassium was increased recently but he has not corrected that from pharmacy. Apart from scrotal swelling, he feels o julia. [facility] Medical History (Updated 09/05/23 @ 14:05 by Ever Davis MD) SHAOLNDA (obstructive sleep apnea) Cardiomyopathy Pulmonary hypertension Pacemaker Nonrheumatic tricuspid (valve) insufficiency Chronic right heart failure Current use of anticoagulant therapy Anticoagulated on Coumadin Right rib fracture CHF (congestive heart failure) Nocturnal hypoxemia Peripheral edema Annual physical exam Left tennis elbow Essential hypertension PAF (paroxysmal atrial fibrillation) History of hydrocele Nocturia Bladder outlet obstruction Bladder cancer Prostate cancer Hyperlipidemia HTN (hypertension) Normally functioning cardiac pacemaker present Varicose veins of bilateral lower extremities with other complications Surgical History History of hydrocelectomy Hx of varicose vein stripping Hx of subdural hematoma History of phacoemulsification of cataract of both eyes with intraocular lens implantation Hx of cardiac pacemaker Hx of colonoscopy Hx of parathyroidectomy Hx of cystoscopy Family History Father Cancer Prostate cancer Mother Cancer, Onset Age: 85 Son No problems noted. Daughter No problems noted. Maternal Grandfather No problems noted. Maternal Grandmother No problems noted. Paternal Grandfather No problems noted. Paternal Grandmother No problems noted. Social History Household Members: Spouse Housing: House Are you a primary child care team lead to a significant other at home: No Do you presently have visiting nurse or other home services: No Alcohol intake: current Alcohol intake frequency: holidays/special occasions only Alcohol type: wine Patient Tobacco Use Status: Never used Tobacco e-Cigarette/Vaping Use: Never Used Advance Directives Date on File: 05/02/21 service: No Current occupational status: retired Cognitive needs: No Hearing needs: No Vision needs: Yes Review of Systems Const Denies weakness ENT Denies dizziness Card Denies chest pain, Denies chest pain with activity, Denies syncope, Denies rapid heart rate, Denies pedal edema, Denies edema, Denies leg edema, Denies lightheadedness, Denies palpitations, Denies dyspnea, Denies dyspnea on exertion and Denies orthopnea Resp Denies cough, Denies dyspnea and Denies dyspnea on exertion GI Denies hematochezia and Denies change in stool character Musc Denies abnormal gait, Denies muscle cramps, Denies muscle weakness, Denies numbness, Denies radiating pain into limb and Denies tingling Neuro Denies abnormal gait, Denies dizziness, Denies syncope, Denies numbness, Denies tingling and Denies weakness Endo Denies palpitations Physical Exam Vital Signs: Last Vital Signs Pulse 77 09/05/23 13:33 BP 102/62 09/05/23 13:33 BMI result Body Mass Index 34.4 Const General: comfortable and no acute distress Orientation/consciousness: patient oriented x3 HEENT Other: Unremarkable Head: Yes normal to inspection Neck Neck: Yes normal visual inspection Chest Chest palpation & inspection: normal inspection of the chest Resp Auscultation: clear to auscultation bilaterally Cardio Palpation: normal PMI Heart sounds: S1 normal heart sound present, S2 normal heart sound present, no gallops, no murmurs and no rubs GI Palpation (GI): Soft to palpation Back/Spine/Pelvis Other: unremarkable Skin General skin exam: no rashes or lesions noted Neuro General: patient oriented x3 Extrem Other: 2+ edema. General: Yes normal to inspection Psych Mental Status: mental status grossly normal Office Procedures EKG Details: EKG with ventricular paced rhythm at 77/Min; PVCs and 1 couplet. [id number], Complete Assessment & Plan Assessment & Plan (1) Chronic right heart failure: Code(s): I50.812 - Chronic right heart failure Plan: Current regimen includes Lasix 80 mg/40 mg; metolazone 2.5 mg Mondays and . Check labs. Potassium was increased recently but he has not changed the dose at home yet. Further changes after labs are reviewed. Part of the reason why there is difficulty in controlling right heart failure is because of the sleep apnea and he still does not have CPAP mask. Advised him to get that sorted out. (2) Nonrheumatic tricuspid (valve) insufficiency: Code(s): I36.1 - Nonrheumatic tricuspid (valve) insufficiency Plan: Echocardiogram had [id number] tricuspid regurgitation. Diuretics as above. (3) Persistent atrial fibrillation: Code(s): I48.19 - Other persistent atrial fibrillation Plan: Continue Eliquis. This atrial fibrillation has been a recent issue over the last year. I am not clear if he will respond to cardioversion as he has got untreated sleep apnea. We will still keep this in mind. (4) Ascending aorta dilatation: Code(s): I77.810 - Thoracic aortic ectasia Plan: In the most recent echocardiogram, size 4.6 cm. With his many comorbidities and age and frailty, may not be suitable for any interventions even if it is enlarging. (5) Essential hypertension: Code(s): I10 - Essential (primary) hypertension Plan: Stable. He has been on lisinopril and amlodipine in the past. Not in his list anymore. (6) SHALONDA (obstructive sleep apnea): Code(s): G47.33 - Obstructive sleep apnea (adult) (pediatric) Plan: He is got moderately severe obstructive sleep apnea but not yet on CPAP. He states he is still trying to get it sorted out. Importance of the same discussed. (7) PVC (premature ventricular contraction): Code(s): I49.3 - Ventricular premature depolarization Plan: Somewhat fluctuating heart rate on exam. On the EKG there is ventricular paced rhythm with underlying atrial fibrillation and PVCs including a couplet. Reasonable to get a Holter monitor. Plan To return in 4 weeks to reassess CHF. Orders: Orders B Type Natriuretic Peptide Today I48.19 - Other persistent atrial fibrillation, I50.9 - Heart failure, unspecified Basic Metabolic Panel Today I48.19 - Other persistent atrial fibrillation Magnesium Today I48.19 - Other persistent atrial fibrillation, I50.22 - Chronic systolic (congestive) heart failure ECG 3 day holter monitor Today I48.19 - Other persistent atrial fibrillation Coding Level of Care Code Est Pt Level 4 (20155) Diagnoses Chronic right heart failure I50.812 Nonrheumatic tricuspid (valve) insufficiency I36.1 Persistent atrial fibrillation I48.19 Ascending aorta dilatation I77.810 Essential hypertension I10 SHALONDA (obstructive sleep apnea) G47.33 PVC (premature ventricular contraction) I49.3 CPT Codes EKG - CPT: [id number], Complete ([id number])
== END 2023-09-05 14:05 | disposition home or self-care (01) ==
PROVIDERS: PCP Internal Medicine; Visit Provider Internal Medicine
DX: I50.812 Chronic right heart failure (principal); I36.1 Nonrheumatic tricuspid (valve) insufficiency; I48.19 Other persistent atrial fibrillation; I77.810 Thoracic aortic ectasia; I10 Essential (primary) hypertension; G47.33 Obstructive sleep apnea (adult) (pediatric); I49.3 Ventricular premature depolarization
CPT/HCPCS: 93010; 99214

== ENCOUNTER 2023-09-05 13:26 | Outpatient (REF) | payer MEDICARE, OTHER, SELFPAY ==
[2023-09-05 15:32] LABS: Anion Gap 12 (12-20); Blood Urea Nitrogen 48 mg/dL (9-16); Calcium 9.5 mg/dL (8.4-10.2); Carbon Dioxide 36 mmol/L (22-29); Chloride 97 mmol/L (96-108); Estimated Glomerular Filt Rate 45; Glucose Random 96 mg/dL (60-115); Magnesium 2.2 mg/dL (1.6-2.6); Potassium 3.9 mmol/L (3.3-5.1); Sodium 141 mmol/L (135-145)
[2023-09-05 15:38] LABS: B Type Natriuretic Peptide 340 pg/mL (<100)
== END 2023-09-05 13:27 | disposition home or self-care (01) ==
LOC: HO.LAB 13:26
PROVIDERS: PCP Internal Medicine; Visit Provider Internal Medicine
DX: I11.0 Hypertensive heart disease with heart failure (principal); I50.812 Chronic right heart failure; I36.1 Nonrheumatic tricuspid (valve) insufficiency; I48.19 Other persistent atrial fibrillation; I77.810 Thoracic aortic ectasia; G47.33 Obstructive sleep apnea (adult) (pediatric); I49.3 Ventricular premature depolarization; Z79.899 Other long term (current) drug therapy
CPT/HCPCS: 36415; 80048; 83735; 83880; 93005; 99212

== ENCOUNTER 2023-09-13 09:54 | Outpatient (REF) | payer MEDICARE, OTHER, SELFPAY ==
[2023-09-13 11:26] LABS: Anion Gap 12 (12-20); Blood Urea Nitrogen 54 mg/dL (9-16); Calcium 9.5 mg/dL (8.4-10.2); Carbon Dioxide 34 mmol/L (22-29); Chloride 98 mmol/L (96-108); Estimated Glomerular Filt Rate 46; Glucose Random 127 mg/dL (60-115); Potassium 3.8 mmol/L (3.3-5.1); Sodium 140 mmol/L (135-145)
== END 2023-09-13 09:55 | disposition home or self-care (01) ==
LOC: HO.LAB 09:54
PROVIDERS: PCP Internal Medicine; Visit Provider Internal Medicine
DX: I50.812 Chronic right heart failure (principal); R60.0 Localized edema
CPT/HCPCS: 36415; 80048

== ENCOUNTER → 2023-09-19 11:43 | Outpatient (REF) | payer MEDICARE, OTHER, SELFPAY ==
--- NOTE | 2023-09-19 11:46 | HM_ITS ---
Conclusion: 1. Patient was monitored for total period of 2 days and 22 hours 2. Baseline appears to be ventricularly paced rhythm, atrial rhythm is unclear 3. Frequent PVCs noted with total burden of 3.7% with 1 ventricular triplet at 150 beats per minute 4. No patient marked events MTDD
== END ==
LOC: HO.CARD 11:43
PROVIDERS: PCP Internal Medicine; Visit Provider Internal Medicine
DX: I48.19 Other persistent atrial fibrillation (principal)
CPT/HCPCS: 93242

== ENCOUNTER → 2023-09-19 11:46 | Outpatient (BNV) | payer MEDICARE, OTHER, SELFPAY | PROVIDERS: PCP Internal Medicine; Visit Provider Internal Medicine Cardiovascular Disease | DX: I49.3 Ventricular premature depolarization (principal) | CPT/HCPCS: 93244 ==

== ENCOUNTER 2023-10-04 14:55 | Outpatient (REF) | payer MEDICARE, OTHER, SELFPAY ==
[2023-10-04 17:14] LABS: Alanine Aminotransferase 20 U/L (0-40); Albumin Level 4.2 g/dL (3.5-5.0); Alkaline Phosphatase 125 U/L (39-117); Anion Gap 12 (12-20); Aspartate Amino Transferase 32 U/L (5-37); Bilirubin Total 1.4 mg/dL (0.0-1.0); Blood Urea Nitrogen 94 mg/dL (9-16); Calcium 10.2 mg/dL (8.4-10.2); Carbon Dioxide 37 mmol/L (22-29); Chloride 93 mmol/L (96-108); Estimated Glomerular Filt Rate 35; Glucose Random 82 mg/dL (60-115); Magnesium 2.6 mg/dL (1.6-2.6); Potassium 3.7 mmol/L (3.3-5.1); Sodium 138 mmol/L (135-145); Total Protein 8.7 g/dL (6.5-8.0)
[2023-10-04 17:40] LABS: B Type Natriuretic Peptide 231 pg/mL (<100)
== END 2023-10-04 14:56 | disposition home or self-care (01) ==
LOC: HO.LAB 14:55
PROVIDERS: PCP Internal Medicine; Visit Provider Nurse Practitioner Family
DX: I11.0 Hypertensive heart disease with heart failure (principal); I50.812 Chronic right heart failure; E78.5 Hyperlipidemia, unspecified; I48.0 Paroxysmal atrial fibrillation; I77.810 Thoracic aortic ectasia; I36.1 Nonrheumatic tricuspid (valve) insufficiency; Z79.01 Long term (current) use of anticoagulants; Z95.0 Presence of cardiac pacemaker; Z79.899 Other long term (current) drug therapy
CPT/HCPCS: 36415; 80053; 83735; 83880; 99212

== ENCOUNTER 2023-10-04 14:55 | Outpatient (AMB) | payer MEDICARE, OTHER, SELFPAY ==
[2023-10-04 14:58] VITALS: BP 100/62; PULSE 68; BMI 32.2
--- NOTE | 2023-10-04 14:58 | MHC.OFFVIS ---
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 Required: No Allergies No Known Allergies Allergy (Verified 10/04/23 15:02) Medication List - Last Reconciled 10/04/23 by Nithya Trinh NP-C apixaban (Eliquis) 5 mg PO BID calcium carbonate-vitamin D3 600 mg-5 mcg (200 unit) 1 tab PO DAILY cholecalciferol (vitamin D3) 25 mcg PO DAILY ferrous sulfate 325 mg PO DAILY furosemide (Lasix) 40 mg PO DIRECTED metolazone 2.5 mg PO DIRECTED multivitamin 1 tab PO DAILY potassium chloride ER 40 mEq (2 x 20 mEq) PO DAILY 90 days spironolactone (Aldactone) 25 mg PO DAILY tamsulosin 0.4 mg PO BEDTIME 90 days HPI HPI 1 mth f/up labs / holter HS: Details: Monica is an 83-year-old male with past medical history of hypertension, hyperlipidemia, paroxysmal atrial fibrillation, tricuspid regurgitation, pacemaker, chronic right heart failure with last hospital admission 07/11/2023 for decompensated heart failure. He was diuresed and sent home with Lasix 80 mg daily which was increased from 40 mg daily. On follow-up visit he did have signs of fluid retention and his Lasix dose was further increased up to 80 mg b.i.d.. He now presents for follow-up. Today he reports that he has been feeling better since the increase Lasix dose. He has been urinating frequently. He says his leg edema is much improved. His scrotal swelling is nearly back to normal. No concerning shortness of breath, PND, orthopnea. No chest discomfort at rest or with activity. He denies heart palpitations, lightheadedness, presyncope, syncope, falls. No bleeding issues reported. Taking all meds as directed. is present. COUNT INCLUDES THE [facility] Medical History SHALONDA (obstructive sleep apnea) Cardiomyopathy Pulmonary hypertension Pacemaker Nonrheumatic tricuspid (valve) insufficiency Chronic right heart failure Current use of anticoagulant therapy Anticoagulated on Coumadin Right rib fracture CHF (congestive heart failure) Nocturnal hypoxemia Peripheral edema Annual physical exam Left tennis elbow Essential hypertension PAF (paroxysmal atrial fibrillation) History of hydrocele Nocturia Bladder outlet obstruction Bladder cancer Prostate cancer Hyperlipidemia HTN (hypertension) Normally functioning cardiac pacemaker present Varicose veins of bilateral lower extremities with other complications Surgical History History of hydrocelectomy Hx of varicose vein stripping Hx of subdural hematoma History of phacoemulsification of cataract of both eyes with intraocular lens implantation Hx of cardiac pacemaker Hx of colonoscopy Hx of parathyroidectomy Hx of cystoscopy Family History Father Cancer Prostate cancer Mother Cancer, Onset Age: 85 Son No problems noted. Daughter No problems noted. Maternal Grandfather No problems noted. Maternal Grandmother No problems noted. Paternal Grandfather No problems noted. Paternal Grandmother No problems noted. Social History Household Members: Spouse Housing: House Are you a primary rn medicare to a significant other at home: No Do you presently have visiting nurse or other home services: No Alcohol intake: current Alcohol intake frequency: holidays/special occasions only Alcohol type: wine Patient Tobacco Use Status: Never used Tobacco e-Cigarette/Vaping Use: Never Used Advance Directives Date on File: 05/02/21 service: No Current occupational status: retired Cognitive needs: No Hearing needs: No Vision needs: Yes Review of Systems Const All systems reviewed & are unremarkable except as noted in HPI and below ENT Denies dizziness Card Denies chest pain, Denies chest pain at rest, Denies chest pain with activity, Denies rapid heart rate, Denies pedal edema, Denies edema, Reports leg edema, Denies lightheadedness, Denies palpitations, Denies dyspnea, Denies dyspnea on exertion and Denies orthopnea Resp Denies cough, Denies dyspnea and Denies dyspnea on exertion GI Denies hematochezia and Denies change in stool character Details: Scrotal swelling has improved Musc Denies abnormal gait, Denies limited range of motion, Denies muscle cramps, Denies muscle weakness, Denies numbness, Denies radiating pain into limb, Denies stiffness and Denies tingling Neuro Denies abnormal gait, Denies dizziness, Denies numbness and Denies tingling Endo Denies palpitations Physical Exam Vital Signs: Last Vital Signs Pulse 68 10/04/23 14:58 BP 100/62 10/04/23 14:58 BMI result Body Mass Index 32.2 Const General: cooperative, healthy appearing, comfortable and no acute distress Orientation/consciousness: patient oriented x3 Neck Neck: Yes normal visual inspection and Yes no JVD Resp Effort & Inspection: normal respiratory effort Auscultation: clear to auscultation bilaterally, no rales, no rhonchi and no wheezes Cardio Jugular venous distension: no JVD Rate: regular rate Rhythm: regular rhythm Heart sounds: S1 normal heart sound present, S2 normal heart sound present, no murmurs and no rubs Neuro General: patient oriented x3 Extrem Other: Mildly pitting edema in his lower extremities. He reports legs are much improved then his last visit. Psych Appearance: grossly normal Mental Status: mental status grossly normal Speech and movement: Normal speech and movement present Assessment & Plan Assessment & Plan (1) Chronic right heart failure: Code(s): I50.812 - Chronic right heart failure Category: Medical Plan: History of chronic right heart failure. Last echo done on 07/11/2023 showing EF 45-50%, moderately reduced RV systolic function, mild aortic and mitral regurgitation, moderately elevated RVSP and RA pressures. Last heart failure admission that day. Since then as outpatient his diuretics have been further increase due to recurrent leg and scrotal edema. He is currently on 80 mg b.i.d.. On exam today he does have some mildly pitting lower leg edema. He reports that his scrotum is nearly normal. His weight is near his baseline. At this time will check labs to evaluate kidney function, electrolytes, BNP. --labs available prior to completion of this note. Shows potassium 3.7, chloride 93, CO2 37, BUN 94 which is greatly increased, creatinine 1.86 which is also increased, BNP 231 which is down from prior. Will have him reduce his Lasix back to 80 mg in the morning and 40 mg in the evening. Continue Aldactone 25 mg daily. P.r.n. metolazone when directed. Will need to reduce Eliquis dose down to 2.5 mg b.i.d. based on current kidney function. He should have recheck of labs in about 2 weeks. Patient informed. Reviewed fluid restriction 48 oz daily, low-salt diet. Signs and symptoms of right heart failure reviewed. Emergency care if warranted. Cardiology office visit in 2 months, sooner if needed. (2) PAF (paroxysmal atrial fibrillation): Comment: S/P pacemaker, on Coumadin Code(s): I48.0 - Paroxysmal atrial fibrillation Category: Medical Plan: History of paroxysmal atrial fibrillation. Holter monitor done on 09/19/2023 shows V paced rhythm, unclear assessment for atrial fibrillation, frequent PVCs with total burden 3.7%, 1 ventricular triplet 150 beats per minute. Pulse regular on examination today. He is not on rate slowing medications. He is on Eliquis for anticoagulation. Will need to temporarily reduced dose as above. At present he denies any bleeding issues. (3) Ascending aorta dilatation: Code(s): I77.810 - Thoracic aortic ectasia Category: Medical Plan: Echo shows ascending aorta 4.6 cm. Will follow with periodic echoes. Blood pressure well controlled. (4) Nonrheumatic tricuspid (valve) insufficiency: Code(s): I36.1 - Nonrheumatic tricuspid (valve) insufficiency Category: Medical Plan: Mild tricuspid regurgitation. May be related to pacemaker wire that goes through valve and is sitting in right ventricle. Managing with diuretics at this time. (5) Current use of anticoagulant therapy: Code(s): Z79.01 - custodial (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 Plan: He is on Eliquis for anticoagulation as above. (6) Essential hypertension: Code(s): I10 - Essential (primary) hypertension Category: Medical Plan: Well controlled at present. No med changes made. (7) Pacemaker: Code(s): Z95.0 - Presence of cardiac pacemaker Category: Medical Plan: Biotronik dual-chamber pacemaker in place. Functioning normally on remote pacemaker monitoring. Will arrange for office interrogation next visit. Plan Time spent with chart review, documentation, interview and assessment Orders: Orders Comprehensive Met. Panel 10/04/23 I50.812 - Chronic right heart failure B Type Natriuretic Peptide 10/04/23 I50.812 - Chronic right heart failure Magnesium 10/04/23 I50.812 - Chronic right heart failure Coding Level of Care Code Est Pt Level 4 (15304) Diagnoses Chronic right heart failure I50.812 PAF (paroxysmal atrial fibrillation) I48.0 Ascending aorta dilatation I77.810 Nonrheumatic tricuspid (valve) insufficiency I36.1 Current use of anticoagulant therapy Z79.01 Essential hypertension I10 Pacemaker Z95.0 Time Spent (min) 35
== END 2023-10-04 15:56 | disposition home or self-care (01) ==
PROVIDERS: PCP Internal Medicine; Visit Provider Nurse Practitioner Family
DX: I50.812 Chronic right heart failure (principal); I48.0 Paroxysmal atrial fibrillation; I77.810 Thoracic aortic ectasia; I36.1 Nonrheumatic tricuspid (valve) insufficiency; Z79.01 Long term (current) use of anticoagulants; I10 Essential (primary) hypertension; Z95.0 Presence of cardiac pacemaker
CPT/HCPCS: 99214

== ENCOUNTER 2023-10-18 08:41 | Outpatient (AMB) | payer MEDICARE, OTHER, SELFPAY ==
--- NOTE | 2023-10-18 08:42 | A.OFFPC_ITS ---
Vital Signs 10/18/23 08:57 Height 5 ft 4 in Weight 187 lb BMI 32.1 BP 118/76 Blood Pressure Location Lt brachial Position Sitting Pulse 63 Pulse Source Pulse Oximeter Pulse Oximetry (%) 96 Oxygen Delivery Method Room Air Intake Visit Reasons: Annual PE/ [facility] [place] pays for PE Intake Note: Pt is here today for PE. Allergies No Known Allergies Allergy (Verified 10/18/23 08:59) Medication List - Last Reconciled 10/18/23 by Minnie Lowe MD apixaban (Eliquis) 2.5 mg PO BID calcium carbonate-vitamin D3 600 mg-5 mcg (200 unit) 1 tab PO DAILY cholecalciferol (vitamin D3) 25 mcg PO DAILY ferrous sulfate 325 mg PO DAILY furosemide (Lasix) 80 mg PO QID metolazone 2.5 mg PO DIRECTED multivitamin 1 tab PO DAILY potassium chloride ER 40 mEq (2 x 20 mEq) PO DAILY 90 days spironolactone (Aldactone) 25 mg PO DAILY tamsulosin 0.4 mg PO BEDTIME 90 days Tobacco use date assessed: 10/18/23 Dental Screening Dental Screen Date: 06/25/23 HPI Annual PE/ [email or web address] [place] pays for PE HPI Details Pt presents for PE. Patient has a chronic lower extremity edema and has been on 3 diuretics managed by Cardiology [facility] Medical History (Updated 10/18/23 @ 15:56 by Minnie Lowe MD) SHALONDA (obstructive sleep apnea) Cardiomyopathy Pulmonary hypertension Pacemaker Nonrheumatic tricuspid (valve) insufficiency Chronic right heart failure Current use of anticoagulant therapy Anticoagulated on Coumadin Right rib fracture CHF (congestive heart failure) Nocturnal hypoxemia Peripheral edema Annual physical exam Left tennis elbow Essential hypertension PAF (paroxysmal atrial fibrillation) History of hydrocele Nocturia Bladder outlet obstruction Bladder cancer Prostate cancer Hyperlipidemia HTN (hypertension) Normally functioning cardiac pacemaker present Varicose veins of bilateral lower extremities with other complications Surgical History History of hydrocelectomy Hx of varicose vein stripping Hx of subdural hematoma History of phacoemulsification of cataract of both eyes with intraocular lens implantation Hx of cardiac pacemaker Hx of colonoscopy Hx of parathyroidectomy Hx of cystoscopy Family History Father Cancer Prostate cancer Mother Cancer, Onset Age: 85 Son No problems noted. Daughter No problems noted. Maternal Grandfather No problems noted. Maternal Grandmother No problems noted. Paternal Grandfather No problems noted. Paternal Grandmother No problems noted. Social History Household Members: Spouse Housing: House Are you a primary health care aide to a significant other at home: No Do you presently have visiting nurse or other home services: No Alcohol intake: current Alcohol intake frequency: holidays/special occasions only Alcohol type: wine Patient Tobacco Use Status: Never used Tobacco e-Cigarette/Vaping Use: Never Used Advance Directives Date on File: 05/02/21 service: No Current occupational status: retired Cognitive needs: No Hearing needs: No Vision needs: Yes Questionnaire Thrive Questionnaire Date Thrive assessed: 07/12/23 TIMMY-7 AMB Questionnaire TIMMY-7 Date TIMMY - 7 assessed: 06/25/23 Source: Developed by Drs. Chago Lowery, Jennifer Farah, Ricardo Godoy and colleagues, with an educational jared from [employer]. Review of Systems Const All systems reviewed & are unremarkable except as noted in HPI and below Reports no additional complaints Eyes Reports no additional complaints ENT Reports no additional complaints Card Reports no additional complaints Resp Reports no additional complaints GI Reports no additional complaints Reports no additional complaints Physical exam (Primary Care) Vital Signs: Last Vital Signs Pulse 63 10/18/23 08:57 BP 118/76 10/18/23 08:57 Pulse Ox 96 10/18/23 08:57 Oxygen Delivery Method Room Air 10/18/23 08:57 BMI result Body Mass Index 32.1 Tobacco/Smoking Status: Tobacco use Status Tobacco use date assessed 10/18/23 10/18/23 09:04 Patient Tobacco Use Status Never used Tobacco 10/18/23 08:43 e-Cigarette/Vaping Use Never Used 10/18/23 08:43 Thrive Assessment: Date of Thrive Assessment Date Thrive assessed 07/12/23 10/18/23 08:43 Const General: no acute distress HENMT Head: Yes normal to inspection Ears: hearing grossly normal bilaterally Face and sinus: Yes normal facial exam Mouth: Normal oral and palatal mucosa present Eyes General: appearance normal, both eyes and all related structures Neck Neck: Yes no lymphadenopathy and Yes supple Resp Effort & Inspection: normal respiratory effort Auscultation: clear to auscultation bilaterally Cardio Rhythm: regular rhythm Heart sounds: S1 normal heart sound present and S2 normal heart sound present GI Inspection: Yes normal to inspection Palpation (GI): Soft to palpation Extrem Other: 3+ pitting edema and chronic venous stasis of lower extremities Assessment and Plan Assessment & Plan (1) Prostate cancer: Comment: s/p RTX seed Code(s): C61 - Malignant neoplasm of prostate Plan: Follow-up with urology (2) Bladder cancer: Comment: In remission follow-up with Dr. Tavera, negative cystoscopy at [facility] 2021 Code(s): C67.9 - Malignant neoplasm of bladder, unspecified Qualifiers: Bladder location: unspecified site Qualified Code(s): C67.9 - Malignant neoplasm of bladder, unspecified Plan: Follow-up with urology (3) Essential hypertension: Comment: Off BP medications Code(s): I10 - Essential (primary) hypertension (4) Persistent atrial fibrillation: Comment: s/p pacemaker Code(s): I48.19 - Other persistent atrial fibrillation Plan: Anticoagulated on Eliquis (5) Chronic right heart failure: Comment: Echo 06/2023, left ventricular ejection fraction 45-50%, moderate dilated right ventricle, moderate reduced right ventricle systolic function and moderately elevated right ventricular systolic pressure severe left atrial enlargement, mild aortic regurgitation and mild mitral regurgitation Code(s): I50.812 - Chronic right heart failure Plan: Follow-up with the cardiology for management of chronic lower extremity edema (6) Bilateral lower extremity edema: Code(s): R60.0 - Localized edema Plan: See above (7) Varicose veins of right lower extremity with inflammation: Comment: 02/16/2023 right great saphenous vein Cyanoacralate ablation 04/02/2023 - right leg operative microphlebectomy Code(s): I83.11 - Varicose veins of right lower extremity with inflammation (8) Nocturnal hypoxemia: Comment: PATIENT DOES HAVE ASSOCIATED NOCTURNAL HYPOXEMIA. IT WAS CORRECTED WITH THE USE OF CPAP BUT RESIDUAL HYPOXEMIA REMAINED AND HE REQUIRED O2 SUPPLEMENTATION AT 1 L/MINUTE. WE WILL ORDER OXYGEN 1 L/MINUTE ALONG WITH THE CPAP. Code(s): G47.34 - Idiopathic sleep related nonobstructive alveolar hypoventilation Plan: Continue CPAP with oxygen supplement 2 L (9) Chronic kidney disease, stage 3: Code(s): N18.30 - Chronic kidney disease, stage 3 unspecified Plan: Monitor renal function and avoid nephrotoxins Orders: Orders Comprehensive Met. Panel Today Minnie Lowe MD C61 - Malignant neoplasm of prostate, C67.9 - Malignant neoplasm of bladder, unspecified, I10 - Essential (primary) hypertension, I48.19 - Other persistent atrial fibrillation, N17.9 - Acute kidney failure, unspecified Hemoglobin A1c Today Minnie Lowe MD C61 - Malignant neoplasm of prostate, C67.9 - Malignant neoplasm of bladder, unspecified, I10 - Essential (primary) hypertension, I48.19 - Other persistent atrial fibrillation, N17.9 - Acute kidney failure, unspecified Lipid Panel Today Minnie Lowe MD C61 - Malignant neoplasm of prostate, C67.9 - Malignant neoplasm of bladder, unspecified, I10 - Essential (primary) hypertension, I48.19 - Other persistent atrial fibrillation, N17.9 - Acute kidney failure, unspecified B Type Natriuretic Peptide Today Minnie Lowe MD C61 - Malignant neoplasm of prostate, C67.9 - Malignant neoplasm of bladder, unspecified, I10 - Essential (primary) hypertension, I48.19 - Other persistent atrial fibrillation, N17.9 - Acute kidney failure, unspecified Complete Blood Count Auto Diff Today Minnie Lowe MD C61 - Malignant neoplasm of prostate, C67.9 - Malignant neoplasm of bladder, unspecified, I10 - Essential (primary) hypertension, I48.19 - Other persistent atrial fibrillation, N17.9 - Acute kidney failure, unspecified IRON PROFILE Today Minnie Lowe MD C61 - Malignant neoplasm of prostate, C67.9 - Malignant neoplasm of bladder, unspecified, I10 - Essential (primary) hypertension, I48.19 - Other persistent atrial fibrillation, N17.9 - Acute kidney failure, unspecified Medications: Changed From apixaban (Eliquis) 5 mg PO BID 60 tabs 2RF To apixaban (Eliquis) 2.5 mg PO BID Wily Nava MD From furosemide (Lasix) 80 mg PO QID To furosemide (Lasix) 2 TAB QAM, 1 Q PM Minnie Lowe MD From potassium chloride ER NEW DOSE: Take 2 tabs daily to equal 40 mEq daily 40 mEq (2 x 20 mEq) PO DAILY 90 days 180 tabs 2RF To potassium chloride ER 40 mEq (2 x 20 mEq) PO BID 90 days 360 tabs 2RF Minnie Lowe MD Coding Level of Care Code Est Pt Prev Care >65y(86837) Diagnoses Prostate cancer C61 Malignant neoplasm of urinary bladder, unspecified site C67.9 Bladder location: unspecified site Essential hypertension I10 Persistent atrial fibrillation I48.19 Chronic right heart failure I50.812 Bilateral lower extremity edema R60.0 Varicose veins of right lower extremity with inflammation I83.11 Nocturnal hypoxemia G47.34 Chronic kidney disease, stage 3 N18.30
[2023-10-18 08:57] VITALS: BP 118/76; PULSE 63; O2SAT 96; BMI 32.1
== END 2023-10-18 10:10 | disposition home or self-care (01) ==
LOC: HO.HMGC 08:41
PROVIDERS: PCP Internal Medicine; Visit Provider Internal Medicine
DX: Z00.00 Encounter for general adult medical examination without abnormal findings (principal); C61 Malignant neoplasm of prostate; C67.9 Malignant neoplasm of bladder, unspecified; I48.19 Other persistent atrial fibrillation; N18.30 Chronic kidney disease, stage 3 unspecified; I50.812 Chronic right heart failure; I13.0 Hypertensive heart and chronic kidney disease with heart failure and stage 1 through stage 4 chronic kidney disease, or unspecified chronic kidney disease; R60.0 Localized edema; I83.11 Varicose veins of right lower extremity with inflammation; G47.34 Idiopathic sleep related nonobstructive alveolar hypoventilation
CPT/HCPCS: 99397

== ENCOUNTER 2023-10-18 09:50 | Outpatient (REF) | payer MEDICARE, OTHER, SELFPAY ==
[2023-10-18 13:40] LABS: B Type Natriuretic Peptide 315 pg/mL (<100)
[2023-10-18 14:03] LABS: Anion Gap 17 (12-20); Blood Urea Nitrogen 59 mg/dL (9-16); Calcium 9.6 mg/dL (8.4-10.2); Carbon Dioxide 28 mmol/L (22-29); Chloride 96 mmol/L (96-108); Estimated Glomerular Filt Rate 43; Glucose Random 100 mg/dL (60-115); Potassium 3.5 mmol/L (3.3-5.1); Sodium 137 mmol/L (135-145)
== END 2023-10-18 09:51 | disposition home or self-care (01) ==
LOC: HO.HMGCLDS 09:50
PROVIDERS: PCP Internal Medicine; Visit Provider Nurse Practitioner Family
DX: N17.9 Acute kidney failure, unspecified (principal); I50.812 Chronic right heart failure
CPT/HCPCS: 36415; 80048; 83880

== ENCOUNTER 2023-10-29 09:37 | Outpatient (AMB) | payer MEDICARE, OTHER, SELFPAY ==
--- NOTE | 2023-10-29 09:48 | MHC.OFFVIS ---
Vital Signs 10/29/23 09:49 Height 5 ft 4 in Weight 194 lb BMI 33.3 BP 98/60 Blood Pressure Location Lt brachial Position Sitting Pulse 71 Pulse Source Pulse Oximeter Pulse Oximetry (%) 94 Oxygen Delivery Method Room Air Intake Visit Reasons: Obstructive sleep apnea Intake Note: pt is here for follow up of SHALONDA, and is having great difficulty with pressure,he feels it is to high. and Surgical First Assistant Required: No Allergies No Known Allergies Allergy (Verified 10/29/23 09:57) Medication List - Last Reconciled 10/29/23 by David Membreno MD apixaban (Eliquis) 2.5 mg (1/2 x 5 mg) PO BID calcium carbonate-vitamin D3 600 mg-5 mcg (200 unit) 1 tab PO DAILY cholecalciferol (vitamin D3) 25 mcg PO DAILY ferrous sulfate 325 mg PO DAILY furosemide (Lasix) 2 TAB QAM, 1 Q PM metolazone 2.5 mg PO DIRECTED multivitamin 1 tab PO DAILY potassium chloride ER 40 mEq (2 x 20 mEq) PO BID 90 days spironolactone (Aldactone) 25 mg PO DAILY tamsulosin 0.4 mg PO BEDTIME 90 days Do you need a note to return to daycare/school/sports/work: No HPI HPI Obstructive sleep apnea: Details: This 83 years old gentleman comes for follow-up for his obstructive sleep apnea. As per his lost polysomnogram study in the sleep lab, he was noted to require BiPAP 22/18 cm along with O2 1 L/minute. He has been provided the BiPAP settings, but he is not able to use the BIPAP and complains that the pressures are too high. At the same time he has tried only about 3-4 times per night to use the BiPAP . His sleep is fragmented, he has hard time in sleeping in the bed. He sleeps better in a recliner, and he thinks that he can not use the BiPAP when sleeping in the recliner. He denies any daytime sleepiness. He does not have any ongoing respiratory problems such as cough wheezing or shortness of breath. [facility] Medical History SHALONDA (obstructive sleep apnea) Cardiomyopathy Pulmonary hypertension Pacemaker Nonrheumatic tricuspid (valve) insufficiency Chronic right heart failure Current use of anticoagulant therapy Anticoagulated on Coumadin Right rib fracture CHF (congestive heart failure) Nocturnal hypoxemia Peripheral edema Annual physical exam Left tennis elbow Essential hypertension PAF (paroxysmal atrial fibrillation) History of hydrocele Nocturia Bladder outlet obstruction Bladder cancer Prostate cancer Hyperlipidemia HTN (hypertension) Normally functioning cardiac pacemaker present Varicose veins of bilateral lower extremities with other complications Surgical History History of hydrocelectomy Hx of varicose vein stripping Hx of subdural hematoma History of phacoemulsification of cataract of both eyes with intraocular lens implantation Hx of cardiac pacemaker Hx of colonoscopy Hx of parathyroidectomy Hx of cystoscopy Family History Father Cancer Prostate cancer Mother Cancer, Onset Age: 85 Son No problems noted. Daughter No problems noted. Maternal Grandfather No problems noted. Maternal Grandmother No problems noted. Paternal Grandfather No problems noted. Paternal Grandmother No problems noted. Social History Household Members: Spouse Housing: House Are you a primary healthcare interpreter to a significant other at home: No Do you presently have visiting nurse or other home services: No Alcohol intake: current Alcohol intake frequency: holidays/special occasions only Alcohol type: wine Patient Tobacco Use Status: Never used Tobacco e-Cigarette/Vaping Use: Never Used Advance Directives Date on File: 05/02/21 service: No Current occupational status: retired Cognitive needs: No Hearing needs: No Vision needs: Yes Review of Systems Const All systems reviewed & are unremarkable except as noted in HPI and below Eyes Reports no additional complaints ENT Reports no additional complaints Card Denies chest pain, Reports irregular heart rhythm, Reports leg edema and Denies dyspnea on exertion Resp Denies cough, Denies excessive phlegm production, Denies dyspnea on exertion and Denies wheezing GI Reports no additional complaints Reports erectile dysfunction Musc Reports no additional complaints Skin/Breast Reports system reviewed and no additional complaints, except as documented Neuro Reports no additional complaints Psych Reports no additional complaints Aller/Immun Denies wheezing Physical Exam Vital Signs: Last Vital Signs Pulse 71 10/29/23 09:49 BP 98/60 10/29/23 09:49 Pulse Ox 94 10/29/23 09:49 Oxygen Delivery Method Room Air 10/29/23 09:49 BMI result Body Mass Index 33.3 Const General: comfortable, no acute distress, alert and awake Orientation/consciousness: patient oriented x3 HEENT Head: Yes normal to inspection General nose exam: No nasal polyps present and No nasal discharge present Face and sinus: Yes sinuses nontender Mouth: oropharynx normal Throat: Yes posterior oropharynx normal Eyes General: appearance normal, both eyes and all related structures Neck Neck: Yes normal visual inspection, Yes no lymphadenopathy, Yes trachea midline and Yes no JVD Thyroid: Thyroid normal Chest Chest palpation & inspection: normal inspection of the chest, normal palpation of entire chest wall and no tenderness Resp Other: Percussion note is resonant, breath sounds are only slightly distant. Lungs are basically clear I did not hear any wheezes rhonchi or crepitations. Cardio Palpation: normal PMI Rate: regular rate Rhythm: regular rhythm Heart sounds: no gallops and no murmurs GI Palpation (GI): Soft to palpation, nontender, No hepatosplenomegaly present and no masses Auscultation: normal bowel sounds Back/Spine/Pelvis Thoracic/Lumbar Spine: thoracic and lumbar spine normal to inspection and thoraco-lumbar ROM limited Skin General skin exam: no rashes or lesions noted Neuro General: patient oriented x3 and no focal motor deficits Cranial nerves: Yes CN's II-XII intact bilaterally Extrem General: Yes normal to inspection, Yes no clubbing, cyanosis or edema and Yes no calf tenderness Psych Appearance: grossly normal and well kempt Speech and movement: Normal speech and movement present Assessment & Plan Assessment & Plan (1) SHALONDA (obstructive sleep apnea): Comment: This 83 years old gentleman is a known case of obstructive sleep apnea . He has had CPAP titration study in the sleep lab, He was found to have rather severe obstructive sleep apnea and requiring high pressure ( BIPAP of 22/18 CMs ) along with O2 1 L/minute. Patient is having hard time in adjusting to the BiPAP. He tried only a few nights during. The last 30 nights Complains of pressure being too high. Code(s): G47.33 - Obstructive sleep apnea (adult) (pediatric) Category: Medical Plan: Had a long discussion with him. I stress that he does need to use the BiPAP at night. I would send instructions to the DME provider to down adjust the pressure to 20/ 16 cm and see if. He can tolerate it well I have also advised him to try to sleep in the recliner if that is more comfortable. (2) Nocturnal hypoxemia: Comment: PATIENT DOES HAVE ASSOCIATED NOCTURNAL HYPOXEMIA. HE HAS REQUIRED O2 1 L/MINUTE ALONG WITH THE BIPAP. Code(s): G47.34 - Idiopathic sleep related nonobstructive alveolar hypoventilation Category: Medical Plan: THE PLAN IS THAT ONCE HE STARTS USING THE BIPAP REGULARLY WE WILL DO ANOTHER OVERNIGHT OXIMETRY RECORDING TO SEE IF HE NEEDS. OXYGEN SUPPLEMENTATION Coding Level of Care Code Est Pt Level 3 (73737) Diagnoses SHALONDA (obstructive sleep apnea) G47.33 Nocturnal hypoxemia G47.34
[2023-10-29 09:49] VITALS: BP 98/60; PULSE 71; O2SAT 94; BMI 33.3
== END 2023-10-29 10:16 | disposition home or self-care (01) ==
PROVIDERS: PCP Internal Medicine; Visit Provider Internal Medicine
DX: G47.33 Obstructive sleep apnea (adult) (pediatric) (principal); G47.34 Idiopathic sleep related nonobstructive alveolar hypoventilation
CPT/HCPCS: 99213

== ENCOUNTER → 2023-10-29 09:37 | Outpatient (BNVA) | payer MEDICARE, OTHER, SELFPAY | PROVIDERS: PCP Internal Medicine; Visit Provider Internal Medicine | DX: G47.33 Obstructive sleep apnea (adult) (pediatric) (principal); G47.34 Idiopathic sleep related nonobstructive alveolar hypoventilation; Z99.81 Dependence on supplemental oxygen | CPT/HCPCS: 99212 ==

== ENCOUNTER 2023-11-01 09:28 | Outpatient (REF) | payer MEDICARE, OTHER, SELFPAY ==
[2023-11-01 13:16] LABS: MANUAL DIFF FLAG NO
[2023-11-01 13:36] LABS: Basophils Absolute Auto 0.1 X10*3/uL (0.0-0.2); Basophils Percent Auto 0.9 % (0-2); Hematocrit 41.9 % (42.0-52.0); Hemoglobin 13.3 g/dl (14.0-18.0); Imm Gran Abs Auto 0.04 X10*3/uL (0.00-0.03); Imm Gran Pct Auto 0.6 % (0.0-0.4); Lymphocytes Absolute Auto 1.3 X10*3/uL (1.2-4.9); Lymphocytes Percent Auto 20.1 % (20-40); Mean Corpuscular HGB Conc 31.7 g/dl (31.0-36.0); Mean Corpuscular Hemoglobin 28.7 pg (27.0-33.0); Mean Corpuscular Volume 90.3 fL (80.0-98.0); Mean Platelet Volume 10.5 fL (9.4-12.4); Monocytes Absolute Auto 0.9 X10*3/uL (0.1-1.2); Monocytes Percent Auto 13.7 % (2-11); Neutrophils Absolute Auto 4.2 x10*3/uL (2.0-8.3); Neutrophils Percent Auto 64.7 % (45-73); Platelet Count 208 X10*3/uL (160-400); Red Blood Count 4.64 X10*6/uL (4.60-5.80); Red Cell Distribution Width 19.2 % (11.0-16.0); White Blood Count 6.5 X10*3/uL (4.8-10.8)
[2023-11-01 13:56] LABS: Alanine Aminotransferase 25 U/L (0-40); Albumin Level 3.7 g/dL (3.5-5.0); Alkaline Phosphatase 117 U/L (39-117); Anion Gap 13 (12-20); Aspartate Amino Transferase 29 U/L (5-37); Bilirubin Total 1.3 mg/dL (0.0-1.0); Blood Urea Nitrogen 49 mg/dL (9-16); Calcium 9.8 mg/dL (8.4-10.2); Carbon Dioxide 31 mmol/L (22-29); Chloride 101 mmol/L (96-108); Cholesterol 151 mg/dL (<200); Estimated Glomerular Filt Rate 50; Glucose Fasting 107 mg/dL (60-99); HDL Cholesterol 63 mg/dL (>40); LDL Cholesterol Calculated 73 mg/dL (<100); Potassium 4.1 mmol/L (3.3-5.1); Sodium 141 mmol/L (135-145); Total Protein 7.9 g/dL (6.5-8.0); Triglycerides 76 mg/dL (<150)
[2023-11-01 14:02] LABS: Prostate Specific Antigen < 0.10 ng/mL (<0.05-4.0)
[2023-11-02 14:48] LABS: IgA 196 mg/dL (70-320); IgG 2023 mg/dL (600-1540); IgM 109 mg/dL (50-300)
[2023-11-02 22:28] LABS: PES - Abn Protein Band 1 0.3 g/dL (NONE DETECTED); Prot Elec - Albumin 3.7 g/dL (3.8-4.8); Prot Elec - Alpha1 0.3 g/dL (0.2-0.3); Prot Elec - Alpha2 0.7 g/dL (0.5-0.9); Prot Elec - Beta 1 0.4 g/dL (0.4-0.6); Prot Elec - Beta 2 0.4 g/dL (0.2-0.5); Prot Elec - Gamma 1.8 g/dL (0.8-1.7); Prot Elec - Total Protein 7.3 g/dL (6.1-8.1)
[2023-11-06 11:04] LABS: Kappa Light Chain, Free Serum 116.2 mg/L (3.3-19.4); Kappa/Lambda Lt Ch Free Ratio 2.89 (0.26-1.65); Lambda Light Chain, Free Serum 40.2 mg/L (5.7-26.3)
[2023-11-14 18:18] LABS: Kappa, Serum 439 mg/dL (176-443); Kappa/Lambda Ratio, Serum 1.86 (1.29-2.55); Lambda, Serum 236 mg/dL (91-240)
== END 2023-11-01 09:29 | disposition home or self-care (01) ==
LOC: HO.HMGCLDS 09:28
PROVIDERS: PCP Internal Medicine; Visit Provider Internal Medicine Medical Oncology
DX: N40.0 Benign prostatic hyperplasia without lower urinary tract symptoms (principal); E66.8 Other obesity; D47.2 Monoclonal gammopathy; C67.9 Malignant neoplasm of bladder, unspecified; Z12.5 Encounter for screening for malignant neoplasm of prostate
CPT/HCPCS: 36415; 80053; 80061; 82784; 83521; 83883; 84153; 84165; 85025; 86334

== ENCOUNTER 2023-11-06 11:48 | Outpatient (REF) | payer MEDICARE, OTHER, SELFPAY ==
[2023-11-06 12:06] LABS: MANUAL DIFF FLAG NO
[2023-11-06 12:29] LABS: Basophils Absolute Auto 0.1 X10*3/uL (0.0-0.2); Basophils Percent Auto 1.4 % (0-2); Eosinophils Percent Auto 0.7 % (0-4); Hematocrit 41.8 % (42.0-52.0); Hemoglobin 13.5 g/dl (14.0-18.0); Imm Gran Abs Auto 0.03 X10*3/uL (0.00-0.03); Imm Gran Pct Auto 0.5 % (0.0-0.4); Lymphocytes Absolute Auto 1.4 X10*3/uL (1.2-4.9); Lymphocytes Percent Auto 23.6 % (20-40); Mean Corpuscular HGB Conc 32.3 g/dl (31.0-36.0); Mean Corpuscular Hemoglobin 28.9 pg (27.0-33.0); Mean Corpuscular Volume 89.5 fL (80.0-98.0); Mean Platelet Volume 10.8 fL (9.4-12.4); Monocytes Absolute Auto 0.8 X10*3/uL (0.1-1.2); Monocytes Percent Auto 13.3 % (2-11); Neutrophils Absolute Auto 3.5 x10*3/uL (2.0-8.3); Neutrophils Percent Auto 60.5 % (45-73); Platelet Count 194 X10*3/uL (160-400); Red Blood Count 4.67 X10*6/uL (4.60-5.80); Red Cell Distribution Width 18.8 % (11.0-16.0); White Blood Count 5.8 X10*3/uL (4.8-10.8)
[2023-11-06 12:41] LABS: Estimated Average Glucose 126 mg/dL; Hemoglobin A1C 149.9419 umol/L
[2023-11-06 12:55] LABS: Alanine Aminotransferase 23 U/L (0-40); Albumin Level 3.7 g/dL (3.5-5.0); Alkaline Phosphatase 125 U/L (39-117); Anion Gap 11 (12-20); Aspartate Amino Transferase 31 U/L (5-37); B Type Natriuretic Peptide 552 pg/mL (<100); Bilirubin Total 1.4 mg/dL (0.0-1.0); Blood Urea Nitrogen 40 mg/dL (9-16); Calcium 9.4 mg/dL (8.4-10.2); Carbon Dioxide 32 mmol/L (22-29); Chloride 100 mmol/L (96-108); Cholesterol 151 mg/dL (<200); Estimated Glomerular Filt Rate 54; Glucose Random 101 mg/dL (60-115); HDL Cholesterol 64 mg/dL (>40); Iron 74 mcg/dL (45-160); LDL Cholesterol Calculated 73 mg/dL (<100); Percent Iron Saturation 23 % (15-50); Potassium 3.7 mmol/L (3.3-5.1); Sodium 139 mmol/L (135-145); Total Iron Binding Capacity 317 mcg/dL (228-428); Total Protein 7.6 g/dL (6.5-8.0); Triglycerides 71 mg/dL (<150); Unsaturated Iron Binding 243 ug/dL
== END 2023-11-06 11:49 | disposition home or self-care (01) ==
LOC: HO.LAB 11:48
PROVIDERS: PCP Internal Medicine; Visit Provider Internal Medicine
DX: N17.9 Acute kidney failure, unspecified (principal); I48.19 Other persistent atrial fibrillation; I10 Essential (primary) hypertension; C67.9 Malignant neoplasm of bladder, unspecified; C61 Malignant neoplasm of prostate
CPT/HCPCS: 36415; 80053; 80061; 83036; 83540; 83880; 85025

== ENCOUNTER → 2023-11-06 23:59 | Outpatient (BNV) | payer MEDICARE, OTHER, SELFPAY ==
--- NOTE | 2023-11-07 20:43 | A.OFFVIS_ITS ---
Intake Visit Reasons: Remote device check- [employer] Allergies No Known Allergies Allergy (Verified 10/29/23 09:57) [facility] Medical History SHALONDA (obstructive sleep apnea) Cardiomyopathy Pulmonary hypertension Pacemaker Nonrheumatic tricuspid (valve) insufficiency Chronic right heart failure Current use of anticoagulant therapy Anticoagulated on Coumadin Right rib fracture CHF (congestive heart failure) Nocturnal hypoxemia Peripheral edema Annual physical exam Left tennis elbow Essential hypertension PAF (paroxysmal atrial fibrillation) History of hydrocele Nocturia Bladder outlet obstruction Bladder cancer Prostate cancer Hyperlipidemia HTN (hypertension) Normally functioning cardiac pacemaker present Varicose veins of bilateral lower extremities with other complications Surgical History History of hydrocelectomy Hx of varicose vein stripping Hx of subdural hematoma History of phacoemulsification of cataract of both eyes with intraocular lens implantation Hx of cardiac pacemaker Hx of colonoscopy Hx of parathyroidectomy Hx of cystoscopy Family History Father Cancer Prostate cancer Mother Cancer, Onset Age: 85 Son No problems noted. Daughter No problems noted. Maternal Grandfather No problems noted. Maternal Grandmother No problems noted. Paternal Grandfather No problems noted. Paternal Grandmother No problems noted. Social History Household Members: Spouse Housing: House Are you a primary lead caregiver to a significant other at home: No Do you presently have visiting nurse or other home services: No Alcohol intake: current Alcohol intake frequency: holidays/special occasions only Alcohol type: wine Patient Tobacco Use Status: Never used Tobacco e-Cigarette/Vaping Use: Never Used Advance Directives Date on File: 05/02/21 service: No Current occupational status: retired Cognitive needs: No Hearing needs: No Vision needs: Yes Office Procedures Cardiac Device Check Cardiac Device Check Details: Date of service- 11/06/2023 ; Battery life 40%; normal lead parameters; AP 15%; [employer] 90%; no significant arrhythmias. Overall normal device function. [id number] Cardiac Device Interrogation, pacemaker Procedure code (CPT) selection complete Assessment & Plan Assessment & Plan (1) Persistent atrial fibrillation: Comment: s/p pacemaker Code(s): I48.19 - Other persistent atrial fibrillation Category: Medical Plan: x Coding Level of Care Code Procedure Only Diagnoses Persistent atrial fibrillation I48.19 CPT Codes Cardiac Device Check - Cardiac Device 12: [id number] Cardiac Device Interrogation, pacemaker ([id number])
== END ==
PROVIDERS: PCP Internal Medicine; Visit Provider Internal Medicine
DX: I48.19 Other persistent atrial fibrillation (principal); Z95.0 Presence of cardiac pacemaker
CPT/HCPCS: 93294

== ENCOUNTER 2023-12-03 13:47 | Outpatient (AMB) | payer MEDICARE, OTHER, SELFPAY ==
--- NOTE | 2023-12-03 14:09 | MHC.OFFVIS ---
Vital Signs 12/03/23 14:10 Height 5 ft 4 in Weight 194 lb BMI 33.3 BP 100/60 Blood Pressure Location Lt brachial Position Sitting Pulse 62 Pulse Source Pulse Oximeter Intake Visit Reasons: 2 mth fu with [facility] [employer] Allergies No Known Allergies Allergy (Verified 10/29/23 09:57) Medication List - Last Reconciled 12/03/23 by JUAN Atkins apixaban (Eliquis) 2.5 mg (1/2 x 5 mg) PO BID calcium carbonate-vitamin D3 600 mg-5 mcg (200 unit) 1 tab PO DAILY cholecalciferol (vitamin D3) 25 mcg PO DAILY ferrous sulfate 325 mg PO DAILY furosemide 80 mg PO DIRECTED metolazone 2.5 mg PO DIRECTED multivitamin 1 tab PO DAILY potassium chloride ER 40 mEq (2 x 20 mEq) PO BID 90 days spironolactone (Aldactone) 25 mg PO DAILY tamsulosin 0.4 mg PO BEDTIME 90 days HPI HPI 2 mth fu with [employer]: Details: Monica is an 83-year-old male with past medical history of hypertension, hyperlipidemia, paroxysmal atrial fibrillation, tricuspid regurgitation, pacemaker, chronic right heart failure with last hospital admission 07/11/2023 for decompensated heart failure who presents for follow-up. Today he reports that he has been doing well since his last follow-up in September. He tells me that his weight and swelling has been stable. He has some mild nonpitting leg edema and tells me the scrotal edema is nearly resolved. He has been taking Lasix 80 mg in the morning and 40 mg in the afternoon as directed. He has no concerning shortness of breath, PND, orthopnea. No chest discomfort at rest or with activity. He denies heart palpitations, lightheadedness, presyncope, syncope, falls. No bleeding issues reported. Taking all meds as directed. [facility] Medical History SHALONDA (obstructive sleep apnea) Cardiomyopathy Pulmonary hypertension Pacemaker Nonrheumatic tricuspid (valve) insufficiency Chronic right heart failure Current use of anticoagulant therapy Anticoagulated on Coumadin Right rib fracture CHF (congestive heart failure) Nocturnal hypoxemia Peripheral edema Annual physical exam Left tennis elbow Essential hypertension PAF (paroxysmal atrial fibrillation) History of hydrocele Nocturia Bladder outlet obstruction Bladder cancer Prostate cancer Hyperlipidemia HTN (hypertension) Normally functioning cardiac pacemaker present Varicose veins of bilateral lower extremities with other complications Surgical History History of hydrocelectomy Hx of varicose vein stripping Hx of subdural hematoma History of phacoemulsification of cataract of both eyes with intraocular lens implantation Hx of cardiac pacemaker Hx of colonoscopy Hx of parathyroidectomy Hx of cystoscopy Family History Father Cancer Prostate cancer Mother Cancer, Onset Age: 85 Son No problems noted. Daughter No problems noted. Maternal Grandfather No problems noted. Maternal Grandmother No problems noted. Paternal Grandfather No problems noted. Paternal Grandmother No problems noted. Social History Household Members: Spouse Housing: House Are you a primary disabilities caregiver to a significant other at home: No Do you presently have visiting nurse or other home services: No Alcohol intake: current Alcohol intake frequency: holidays/special occasions only Alcohol type: wine Patient Tobacco Use Status: Never used Tobacco e-Cigarette/Vaping Use: Never Used Advance Directives Date on File: 05/02/21 service: No Current occupational status: retired Cognitive needs: No Hearing needs: No Vision needs: Yes Review of Systems Const All systems reviewed & are unremarkable except as noted in HPI and below Denies weakness ENT Denies dizziness Card Denies chest pain, Denies chest pain with activity, Denies syncope, Denies rapid heart rate, Denies pedal edema, Denies edema, Reports leg edema, Denies lightheadedness, Denies palpitations, Denies dyspnea, Denies dyspnea on exertion and Denies orthopnea Resp Denies cough, Denies dyspnea and Denies dyspnea on exertion GI Denies hematochezia and Denies change in stool character Musc Denies abnormal gait, Denies muscle cramps, Denies muscle weakness, Denies numbness, Denies radiating pain into limb and Denies tingling Neuro Denies abnormal gait, Denies dizziness, Denies syncope, Denies numbness, Denies tingling and Denies weakness Endo Denies palpitations Physical Exam Vital Signs: Last Vital Signs Pulse 62 12/03/23 14:10 BP 100/60 12/03/23 14:10 BMI result Body Mass Index 33.3 Const General: cooperative, healthy appearing, comfortable and no acute distress Orientation/consciousness: patient oriented x3 Neck Neck: Yes normal visual inspection and Yes no JVD Chest Chest palpation & inspection: normal inspection of the chest Resp Effort & Inspection: normal respiratory effort Auscultation: clear to auscultation bilaterally, no crackles, no rales, no rhonchi and no wheezes Cardio Jugular venous distension: no JVD Rate: regular rate Rhythm: regular rhythm Heart sounds: S1 normal heart sound present, S2 normal heart sound present, no gallops, no murmurs and no rubs Neuro General: patient oriented x3 Extrem Other: mild nonpitting edema of lower legs Psych Appearance: grossly normal Mental Status: mental status grossly normal Speech and movement: Normal speech and movement present Office Procedures Cardiac Device Check Cardiac Device Check Details: [employer] dual-chamber pacemaker interrogation today, battery 3 years 3 months, right atrial threshold 0.4 volts at 0.4 milliseconds, RV threshold 0.4 volts at 0.4 milliseconds, DDDR mode with low rate 60, PAF episodes, longest 37 minutes, V rate controlled at 76, a paced 50%, V paced 95%, atrial burden 75% [id number] Cardiac Device Check, pacemaker dual lead Procedure code (CPT) selection complete Assessment & Plan Assessment & Plan (1) Chronic right heart failure: Comment: Echo 06/2023, left ventricular ejection fraction 45-50%, moderate dilated right ventricle, moderate reduced right ventricle systolic function and moderately elevated right ventricular systolic pressure severe left atrial enlargement, mild aortic regurgitation and mild mitral regurgitation Code(s): I50.812 - Chronic right heart failure Category: Medical Plan: History of chronic right heart failure. Last echo done on 07/11/2023 showing EF 45-50%, moderately reduced RV systolic function, mild aortic and mitral regurgitation, moderately elevated RVSP and RA pressures. Last heart failure admission 06/2023. Since then his condition has been fairly stable. His diuretics have been adjusted some due to swelling and then mild JB. At this point he is on metolazone 2.5 mg once weekly, Lasix 80 mg in the a.m. and 40 mg in the p.m., Aldactone 25 mg daily. Labs done on 11/06/2023 showed potassium 3.7, creatinine 1.27, BNP 552. His typical BNP seems to run in the 200-300s. Today he reports that his breathing, weight and edema have all been stable. On exam he does have some mild nonpitting leg edema. He is currently pleased with how he is doing. Will have him continue on current med management. Informed him that if he gains 3 lb in a day or 5 lb in a week he is to take additional 40 mg of Lasix in the p.m. for 2-3 days until weight is back to baseline. He also can take the additional Lasix if he notices increasing edema. Reviewed fluid restriction 48 oz daily, low-salt diet. Signs and symptoms of right heart failure reviewed. Emergency care if warranted. Cardiology office visit in 3 months, sooner if needed. (2) PAF (paroxysmal atrial fibrillation): Comment: S/P pacemaker, on Coumadin Code(s): I48.0 - Paroxysmal atrial fibrillation Category: Medical Plan: History of paroxysmal atrial fibrillation. Holter monitor done on 09/19/2023 shows V paced rhythm, unclear assessment for atrial fibrillation, frequent PVCs with total burden 3.7%, 1 ventricular triplet 150 beats per minute. Pulse regular on examination today. Device interrogation today does show an episode of atrial fibrillation lasting 37 minutes on 10/24/2023 with V rate 76. Patient denies any feelings of heart palpitations. He is not on rate slowing medications. He is on Eliquis for anticoagulation. Last labs done 11/06/2023 shows creatinine 1.27, GFR 54. Creatinine was as high as 1.86 on 10/04/2023. At that time his Eliquis dose was reduced to 0.5 mg b.i.d.. Now the creatinine has normalized will resume his 5 mg b.i.d. dosing to reduce stroke risk reduction. (3) Ascending aorta dilatation: Code(s): I77.810 - Thoracic aortic ectasia Category: Medical Plan: Echo 07/11/2023 shows ascending aorta 4.6 cm. Will follow with periodic echoes. Blood pressure well controlled. (4) Nonrheumatic tricuspid (valve) insufficiency: Code(s): I36.1 - Nonrheumatic tricuspid (valve) insufficiency Category: Medical Plan: Mild tricuspid regurgitation. May be related to pacemaker wire that goes through valve and is sitting in right ventricle. Managing with diuretics at this time. 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 (6) Essential hypertension: Comment: Off BP medications Code(s): I10 - Essential (primary) hypertension Category: Medical Plan: Well controlled at present. No med changes made. (7) Pacemaker: Code(s): Z95.0 - Presence of cardiac pacemaker Category: Medical Plan: [employer] dual-chamber pacemaker in place. Functioning normally on office interrogation done today. Next office interrogation due in 6 months. Continue with remote pacemaker monitoring. Plan Time spent with chart review, documentation, interview and assessment Medications: New apixaban (Eliquis) Dose increased, creatinine 1.27, weight 194 lb 5 mg PO BID 60 tabs 5RF Changed From furosemide Take two 40mg tabs in the morning and take one 40mg tab in the afternoon. 40 mg PO DIRECTED 90 days 90 tabs 0RF To furosemide Take two 40mg tabs in the morning and take one 40mg tab in the afternoon. 80 mg PO DIRECTED Discontinued apixaban (Eliquis) Discontinued Reason: Doctor's Order 2.5 mg (1/2 x 5 mg) PO BID 60 tabs 5RF Coding Level of Care Code Est Pt Level 4 (93823) Diagnoses Chronic right heart failure I50.812 PAF (paroxysmal atrial fibrillation) I48.0 Ascending aorta dilatation I77.810 Nonrheumatic tricuspid (valve) insufficiency I36.1 Current use of anticoagulant therapy Z79.01 Essential hypertension I10 Pacemaker Z95.0 CPT Codes Cardiac Device Check - Cardiac Device 2: [id number] Cardiac Device Check, pacemaker dual lead ([id number]) Time Spent (min) 28
[2023-12-03 14:10] VITALS: BP 100/60; PULSE 62; BMI 33.3
== END 2023-12-03 14:47 | disposition home or self-care (01) ==
PROVIDERS: PCP Internal Medicine; Visit Provider Nurse Practitioner Family
DX: I50.812 Chronic right heart failure (principal); I48.0 Paroxysmal atrial fibrillation; I77.810 Thoracic aortic ectasia; I36.1 Nonrheumatic tricuspid (valve) insufficiency; Z79.01 Long term (current) use of anticoagulants; I10 Essential (primary) hypertension; Z95.0 Presence of cardiac pacemaker
CPT/HCPCS: 93280; 99214

== ENCOUNTER → 2023-12-03 13:47 | Outpatient (BNVA) | payer MEDICARE, OTHER, SELFPAY | PROVIDERS: PCP Internal Medicine; Visit Provider Nurse Practitioner Family | DX: I11.0 Hypertensive heart disease with heart failure (principal); I50.812 Chronic right heart failure; I48.0 Paroxysmal atrial fibrillation; I77.810 Thoracic aortic ectasia; I36.1 Nonrheumatic tricuspid (valve) insufficiency; Z79.01 Long term (current) use of anticoagulants; Z79.899 Other long term (current) drug therapy; Z45.018 Encounter for adjustment and management of other part of cardiac pacemaker | CPT/HCPCS: 93280; 99212 ==

== ENCOUNTER 2023-12-10 14:03 | Outpatient (AMB) | payer MEDICARE, OTHER, SELFPAY ==
--- NOTE | 2023-12-10 14:07 | A.OFFVIS_ITS ---
Vital Signs 12/10/23 14:08 Height 5 ft 4 in Weight 197 lb BMI 33.8 BP 120/68 Blood Pressure Location Lt brachial Position Sitting Pulse 61 Pulse Source Pulse Oximeter Pulse Oximetry (%) 92 Oxygen Delivery Method Room Air Intake Visit Reasons: Obstructive sleep apnea Intake Note: pt is here for follow up to discuss the cpap usage, he is having great difficulty. Administrative Nursing Supervisor Required: No Allergies No Known Allergies Allergy (Verified 12/10/23 14:14) Medication List - Last Reconciled 12/10/23 by David Membreno MD apixaban (Eliquis) 5 mg PO BID calcium carbonate-vitamin D3 600 mg-5 mcg (200 unit) 1 tab PO DAILY cholecalciferol (vitamin D3) 25 mcg PO DAILY ferrous sulfate 325 mg PO DAILY furosemide 40 mg PO DIRECTED 90 days metolazone 2.5 mg PO DIRECTED multivitamin 1 tab PO DAILY potassium chloride ER 40 mEq (2 x 20 mEq) PO BID 90 days spironolactone (Aldactone) 25 mg PO DAILY tamsulosin 0.4 mg PO BEDTIME 90 days Do you need a note to return to daycare/school/sports/work: No HPI HPI Obstructive sleep apnea: Details: Jung is 83 years old very bright gentleman, comes for follow-up for his sleep apnea. He has tried is best, but can not tolerate the BiPAP or CPAP. He sleeps much better without trying to use the device. He thinks that actually his sleep is fairly good, He does take naps during the daytime in a recliner. He does not have any chronic. pulmonary disease Is main issue is cardiac disease with atrial fibrillation and mild congestive failure, which are under good control with. His current meds He does have a permanent cardiac pacemaker. When he had lab based CPAP titration, he was found to have nocturnal hypoxemia, and in addition to the bile Pap support he also needed O2 1 L/minute. At home now he does not have any oxygen. [facility] Medical History SHALONDA (obstructive sleep apnea) Cardiomyopathy Pulmonary hypertension Pacemaker Nonrheumatic tricuspid (valve) insufficiency Chronic right heart failure Current use of anticoagulant therapy Anticoagulated on Coumadin Right rib fracture CHF (congestive heart failure) Nocturnal hypoxemia Peripheral edema Annual physical exam Left tennis elbow Essential hypertension PAF (paroxysmal atrial fibrillation) History of hydrocele Nocturia Bladder outlet obstruction Bladder cancer Prostate cancer Hyperlipidemia HTN (hypertension) Normally functioning cardiac pacemaker present Varicose veins of bilateral lower extremities with other complications Surgical History History of hydrocelectomy Hx of varicose vein stripping Hx of subdural hematoma History of phacoemulsification of cataract of both eyes with intraocular lens implantation Hx of cardiac pacemaker Hx of colonoscopy Hx of parathyroidectomy Hx of cystoscopy Family History Father Cancer Prostate cancer Mother Cancer, Onset Age: 85 Son No problems noted. Daughter No problems noted. Maternal Grandfather No problems noted. Maternal Grandmother No problems noted. Paternal Grandfather No problems noted. Paternal Grandmother No problems noted. Social History Household Members: Spouse Housing: House Are you a primary primary care physician to a significant other at home: No Do you presently have visiting nurse or other home services: No Alcohol intake: current Alcohol intake frequency: holidays/special occasions only Alcohol type: wine Patient Tobacco Use Status: Never used Tobacco e-Cigarette/Vaping Use: Never Used Advance Directives Date on File: 05/02/21 service: No Current occupational status: retired Cognitive needs: No Hearing needs: No Vision needs: Yes Review of Systems Const All systems reviewed & are unremarkable except as noted in HPI and below Eyes Reports no additional complaints ENT Reports no additional complaints Card Denies chest pain, Reports irregular heart rhythm, Reports leg edema and Denies dyspnea on exertion Resp Denies cough, Denies excessive phlegm production, Denies dyspnea on exertion and Denies wheezing GI Reports no additional complaints Reports erectile dysfunction Musc Reports no additional complaints Skin/Breast Reports system reviewed and no additional complaints, except as documented Neuro Reports no additional complaints Psych Reports no additional complaints Aller/Immun Denies wheezing Physical Exam Vital Signs: Last Vital Signs Pulse 61 12/10/23 14:08 BP 120/68 12/10/23 14:08 Pulse Ox 92 12/10/23 14:08 Oxygen Delivery Method Room Air 12/10/23 14:08 BMI result Body Mass Index 33.8 Const General: comfortable, no acute distress, alert and awake Orientation/consciousness: patient oriented x3 HEENT Head: Yes normal to inspection General nose exam: No nasal polyps present and No nasal discharge present Face and sinus: Yes sinuses nontender Mouth: oropharynx normal Throat: Yes posterior oropharynx normal Eyes General: appearance normal, both eyes and all related structures Neck Neck: Yes normal visual inspection, Yes no lymphadenopathy, Yes trachea midline and Yes no JVD Thyroid: Thyroid normal Chest Chest palpation & inspection: normal inspection of the chest, normal palpation of entire chest wall and no tenderness Resp Other: Percussion note is resonant, breath sounds are only slightly distant. Lungs are basically clear I did not hear any wheezes rhonchi or crepitations. Cardio Palpation: normal PMI Rate: regular rate Rhythm: regular rhythm Heart sounds: no gallops and no murmurs GI Palpation (GI): Soft to palpation, nontender, No hepatosplenomegaly present and no masses Auscultation: normal bowel sounds Back/Spine/Pelvis Thoracic/Lumbar Spine: thoracic and lumbar spine normal to inspection and thoraco-lumbar ROM limited Skin General skin exam: no rashes or lesions noted Neuro General: patient oriented x3 and no focal motor deficits Cranial nerves: Yes CN's II-XII intact bilaterally Extrem General: Yes normal to inspection, Yes no clubbing, cyanosis or edema and Yes no calf tenderness Psych Appearance: grossly normal and well kempt Speech and movement: Normal speech and movement present Results Reviewed Results Reviewed: Compliance report for the last 60 nights reveals that he has used only 17 nights and average usage is less than 1 hour. Practically he has been totally non compliant/ on able to use BiPAP Assessment & Plan Assessment & Plan (1) SHALONDA (obstructive sleep apnea): Comment: This 83 years old gentleman is a known case of obstructive sleep apnea . He has had CPAP titration study in the sleep lab, He was found to have rather severe obstructive sleep apnea and requiring high pressure ( BIPAP of 22/18 CMs ) along with O2 1 L/minute. Patient is having hard time in using the BiPAP, and attempting to use the BiPAP is actually disturbing his sleep at night. Code(s): G47.33 - Obstructive sleep apnea (adult) (pediatric) Category: Medical Plan: IT IS VERY OBVIOUS THAT HE IS NOT GOING TO BE ABLE TO USE BIPAP/CPAP SO IT IS OKAY FOR HIM TO RETURN THE DEVICE. HE WILL BE BETTER OF USING O2 2 L/MINUTE AT NIGHTTIME. HAD A GOOD DISCUSSION WITH HIM AND HE UNDERSTANDS WELL. (2) Nocturnal hypoxemia: Comment: PATIENT DOES HAVE ASSOCIATED NOCTURNAL HYPOXEMIA. HE HAS REQUIRED O2 1 L/MINUTE ALONG WITH THE BIPAP. NOW HE IS NOT ABLE TO USE BIPAP. AND ALSO DOES NOT HAVE O2 AT HOME. Code(s): G47.34 - Idiopathic sleep related nonobstructive alveolar hypoventilation Category: Medical Plan: AFTER LONG DISCUSSION WE HAVE DECIDED TO RETURN THE BIPAP APPARATUS, HE WILL BE CHECKED FOR NOCTURNAL HYPOXEMIA ONCE AGAIN WITH OVERNIGHT OXIMETRY RECORDING, AND THEN WOULD BE STARTED ON OXYGEN THERAPY 2 L/MINUTE, Coding Level of Care Code Est Pt Level 3 (86055) Diagnoses SHALONDA (obstructive sleep apnea) G47.33 Nocturnal hypoxemia G47.34
[2023-12-10 14:08] VITALS: BP 120/68; PULSE 61; O2SAT 92; BMI 33.8
== END 2023-12-10 14:38 | disposition home or self-care (01) ==
PROVIDERS: PCP Internal Medicine; Visit Provider Internal Medicine
DX: G47.33 Obstructive sleep apnea (adult) (pediatric) (principal); G47.34 Idiopathic sleep related nonobstructive alveolar hypoventilation
CPT/HCPCS: 99213

== ENCOUNTER → 2023-12-10 14:03 | Outpatient (BNVA) | payer MEDICARE, OTHER, SELFPAY | PROVIDERS: PCP Internal Medicine; Visit Provider Internal Medicine | DX: G47.33 Obstructive sleep apnea (adult) (pediatric) (principal); G47.34 Idiopathic sleep related nonobstructive alveolar hypoventilation | CPT/HCPCS: 99212 ==

== ENCOUNTER 2023-12-22 09:21 | Emergency (ER) | payer MEDICARE, OTHER, SELFPAY ==
[2023-12-22 09:33] VITALS: BP 99/56; PULSE 69; RESP 16; TEMP 36.8; O2SAT 94
[2023-12-22 09:41] VITALS: BP 112/70; BP 99/56; PULSE 69; PULSE 95; RESP 16; TEMP 36.8; O2SAT 94; O2SAT 96; BMI 32.1
--- NOTE | 2023-12-22 09:50 | ED_ITS ---
HPI - General Adult General Chief complaint: Extremity Injury, Lower Stated complaint: L FOOT LAC,BLEED CONTROLLED,+THINNER PER EMS Time Seen by Provider: 12/22/23 09:37 Source: patient and RN notes reviewed Mode of arrival: ambulatory Limitations: no limitations History of Present Illness ED Provider: Evie Tate HPI narrative: This is a 83-year-old male, with a history of CHF, pacemaker, and atrial fibrillation on Coumadin, who presents emergency department with complaints of left foot wound. Patient states that he was having a normal day, walking outside to get his mail when suddenly he noticed his left foot was bleeding. He denies injuring his left foot. He applied pressure to the however reports that this this continued to spray out. He called EMS who wrapped the area with a pressure dressing. He reports he is otherwise feeling well, no dizziness, headache, blurred vision, chest pain, shortness of breath. No other complaints or concerns this MD complaint: Varicose vein bleeding Onset (ago): minute(s) Location: left and lower extremity Radiation: non-radiation Quality: aching Pain Consistency: constant Relieving factors: none Exacerbating factors: none Associated symptoms: denies other symptoms Treatments prior to arrival: none Related Data Home Medications ?Medication ?Instructions ?Recorded ?Confirmed multivitamin 1 tab PO DAILY 05/12/21 12/10/23 calcium carbonate 600 mg-vitamin 1 tab PO DAILY 05/17/23 12/10/23 D3 5 mcg (200 unit) tablet cholecalciferol (vitamin D3) 25 25 mcg PO DAILY 05/17/23 12/10/23 mcg (1,000 unit) tablet ferrous sulfate 325 mg (65 mg 325 mg PO DAILY 07/11/23 12/10/23 iron) tablet Previous Rx's ?Medication ?Instructions ?Recorded spironolactone 25 mg tablet 25 mg PO DAILY #30 tabs 09/07/23 (Aldactone) potassium chloride 20 mEq 40 meq (2 x 20 mEq) PO BID 90 days 10/18/23 tablet,extended release #360 tabs tamsulosin 0.4 mg capsule 0.4 mg PO BEDTIME 90 days #90 caps 11/19/23 apixaban 5 mg tablet (Eliquis) 5 mg PO BID #60 tabs 12/03/23 furosemide 40 mg tablet 40 mg PO DIRECTED 90 days #270 12/06/23 tabs metolazone 2.5 mg tablet 2.5 mg PO DIRECTED #20 tabs 12/17/23 Allergies Allergy/AdvReac Type Severity Reaction Status Date / Time No Known Allergies Allergy Verified 12/22/23 09:44 Review of Systems Review of Systems: Yes all other systems are reviewed and are negative Constitutional: Constitutional: Reports as per HPI [facility] Past Medical History Medical History SHALONDA (obstructive sleep apnea) Cardiomyopathy Pulmonary hypertension Pacemaker Nonrheumatic tricuspid (valve) insufficiency Chronic right heart failure Current use of anticoagulant therapy Anticoagulated on Coumadin Right rib fracture CHF (congestive heart failure) Nocturnal hypoxemia Peripheral edema Annual physical exam Left tennis elbow Essential hypertension PAF (paroxysmal atrial fibrillation) History of hydrocele Nocturia Bladder outlet obstruction Bladder cancer Prostate cancer Hyperlipidemia HTN (hypertension) Normally functioning cardiac pacemaker present Varicose veins of bilateral lower extremities with other complications Surgical History History of hydrocelectomy Hx of varicose vein stripping Hx of subdural hematoma History of phacoemulsification of cataract of both eyes with intraocular lens implantation Hx of cardiac pacemaker Hx of colonoscopy Hx of parathyroidectomy Hx of cystoscopy Family History Family History Father Cancer Prostate cancer Mother Cancer, Onset Age: 85 Son No problems noted. Daughter No problems noted. Maternal Grandfather No problems noted. Maternal Grandmother No problems noted. Paternal Grandfather No problems noted. Paternal Grandmother No problems noted. Social History Social History Household Members: Spouse Housing: House Are you a primary patient care representative to a significant other at home: No Do you presently have visiting nurse or other home services: No Alcohol intake: current Alcohol intake frequency: holidays/special occasions only Alcohol type: wine Patient Tobacco Use Status: Never used Tobacco e-Cigarette/Vaping Use: Never Used Advance Directives: Yes Advance Directives on File: Yes Advance Directives Date on File: 05/02/21 service: No Current occupational status: retired Cognitive needs: No Hearing needs: No Vision needs: Yes Physical Exam ED Vital Signs: Vital Signs - 24 hr 12/22/23 09:33 12/22/23 09:41 12/22/23 11:03 Temperature 98.3 F 98.3 F 98.3 F Pulse Rate 69 69 69 Respiratory Rate 16 16 16 Blood Pressure 99/56 L 99/56 L 99/56 L Pulse Oximetry 94 94 94 Oxygen Delivery Method Room Air Room Air Room Air BMI result Body Mass Index 32.1 Const General: cooperative, comfortable and no acute distress Orientation/consciousness: patient oriented x3 Limitations: no limitations HENMT Head: Yes normal to inspection, Yes normocephalic and Yes atraumatic Ears: hearing grossly normal bilaterally General nose exam: Normal external nose present Face and sinus: Yes normal facial exam Mouth: Normal oral and palatal mucosa present, oropharynx normal and moist mucous membranes Throat: Yes posterior oropharynx normal Eyes General: appearance normal, both eyes and all related structures Eyelids: Yes eyelids normal Conjunctivae: conjunctivae normal Sclerae: sclerae normal Pupils: Equal, round and reactive pupils present EOM: EOMs intact bilaterally Neck Neck: Yes normal visual inspection, Yes full ROM and Yes no lymphadenopathy Lymphatic: no lymphadenopathy noted Chest Chest palpation & inspection: normal inspection of the chest Resp Effort & Inspection: normal respiratory effort and able to speak in complete sentences Auscultation: clear to auscultation bilaterally, no crackles, no rales, no rhonchi and no wheezes Cardio Rate: regular rate Rhythm: regular rhythm Heart sounds: S1 normal heart sound present and S2 normal heart sound present GI Inspection: Yes normal to inspection Skin Other: Left foot medial aspect there is a 1mm circular wound overlying varicose vein, no active bleeding, no surrounding erythema or ecchymosis General skin exam: no rashes or lesions noted Trauma: no lacerations or abrasions Wounds: no wounds Neuro General: patient oriented x3 and moves all extremities Cranial nerves: Yes Equal, round and reactive pupils present Extrem General: Yes normal to inspection Right upper extremity: normal to inspection Left upper extremity: normal to inspection Right lower extremity: normal to inspection Left lower extremity: normal to inspection Medications Administered Discontinued Medications Generic Name Dose Route Start Last Admin Trade Name Freq PRN Reason Stop Dose Admin Bacitracin 1 appl 12/22/23 10:51 12/22/23 10:54 Bacitracin Oint 0.9 Gm Packet TOPICAL 12/22/23 10:52 1 appl ONCE ONE Administration Protocol Lidocaine HCl 5 ml 12/22/23 10:01 12/22/23 10:04 Lidocaine Hcl 1 % Mpf 5 Ml Vial INFILTRATI 12/22/23 10:02 5 ml ONCE ONE Administration Procedures Procedure Narrative Procedure Narrative: Area was prepped using Betadine. Local anesthesia was achieved using 1-1/2 cc of 1% lidocaine. One suture, 5 0 nylon, figure-eight stitch, was placed overlying the varicose vein. No active bleeding. Patient tolerated procedure well without any complications or concerns. Medical Decision Making Medical Decision Making [facility] Narrative: This is a 83-year-old, with a history of CHF, pacemaker, and atrial fib on coumadin, who presents with bleeding varicose vein on his left foot. On arrival, patient well-appearing, asymptomatic. Area is not actively bleeding however given appearance, this may rebleed. I discussed the risks and benefits of placing a suture in this area, he is agreeable to having this performed. A figure-eight stitch was placed overlying the varicosity. No active bleeding. Patient tolerated procedure well. Discussed return precautions. Advised to return in 10 days to have the suture removed, or follow-up with PCP. His blood pressure is slightly hypotensive, however patient is feeling well, no excessive blood loss, and has a hx of hypotension in the past. . He understands and agrees with plan. Patient stable for discharge. Differential Diagnosis Differential Diagnoses: The differential diagnosis associated with the presentation includes Laceration, puncture wound, varicose vein Discharge Plan Discharge Clinical Impression: Bleeding from varicose vein Patient Disposition: Home, Self-Care Instructions: Care For Your Stitches (ED) Additional Instructions: You were seen in the emergency department due to a bleeding varicose vein. We placed 1 suture that needs to be removed in 10 days. Keep wound clean and dry. Do not submerge wound. You may shower, and use light/mild soap to the region, pat dry. You may return here or follow-up with your primary care physician. Watch for any signs of infection including but not limited to increased redness, swelling, fevers or chills. If any of these occur, please return for re-evaluation. Prescriptions: No Action spironolactone [Aldactone] 25 mg tablet 25 mg PO DAILY Qty: 30 5RF tamsulosin 0.4 mg capsule 0.4 mg PO BEDTIME 90 Days Qty: 90 3RF furosemide 40 mg tablet 40 mg PO DIRECTED 90 Days Qty: 270 3RF Rx Instructions: Take two 40mg tabs in the morning and take one 40mg tab in the afternoon. metolazone 2.5 mg tablet 2.5 mg PO DIRECTED Qty: 20 2RF Rx Instructions: Take one tab, 2.5mg on Sunday and - once swelling improves, cut back to Sunday only calcium carbonate-vitamin D3 600 mg-5 mcg (200 unit) Tablet 1 tab PO DAILY cholecalciferol (vitamin D3) 25 mcg (1,000 unit) Tablet 25 mcg PO DAILY ferrous sulfate 325 mg (65 mg iron) tablet 325 mg PO DAILY potassium chloride 20 mEq tablet extended release 40 meq PO BID 90 Days Qty: 360 2RF multivitamin Tablet 1 tab PO DAILY Eliquis 5 mg tablet 5 mg PO BID Qty: 60 5RF Rx Instructions: Dose increased, creatinine 1.27, weight 194 lb Interventions: ED Discharge Assessment Last Done: 12/22/23 11:03 Discharge Date/Time: 12/22/23 11:08 Print Language: Greek
[2023-12-22] MEDS: Lidocaine HCl 1 % MPF 5 ML VIAL INFILTRATI (10:04)
--- NOTE | 2023-12-22 10:13 | PC.NURSE ---
Jung is coming in from home via EMS, he reports that he went out for a morning walk, came home and noticed blood trailing down his foot. he reports that he must have nicked a varicose vein, bleeding controlled with pressure dressing by EMS. Upon arrival, bleeding continues to be controlled with pressure dressing. Patient reports no pain or discomfort. Bleeding minimal when dressing taken down by AMBER. AMBER in room providing suture at this time
[2023-12-22] MEDS: Bacitracin Oint 0.9 GM PACKET 1 APPL TOPICAL (10:54)
[2023-12-22 11:03] VITALS: BP 99/56; PULSE 69; RESP 16; TEMP 36.8; O2SAT 94
== END 2023-12-22 11:08 | disposition home or self-care (01) ==
PROVIDERS: Emergency Provider Emergency Medicine Emergency Medical Services; PCP Internal Medicine
DX: I83.892 Varicose veins of left lower extremity with other complications (principal); I48.91 Unspecified atrial fibrillation; Z95.0 Presence of cardiac pacemaker; Z79.01 Long term (current) use of anticoagulants
CPT/HCPCS: 12001; 99284

== ENCOUNTER 2024-01-01 10:19 | Outpatient (AMB) | payer MEDICARE, OTHER, SELFPAY ==
--- NOTE | 2024-01-01 10:37 | MHC.OFFVIS ---
Vital Signs 01/01/24 10:38 Height 5 ft 4 in Weight 196 lb BMI 33.6 BP 96/58 L Blood Pressure Location Lt brachial Position Sitting Pulse 128 H Pulse Source Pulse Oximeter Pulse Oximetry (%) 94 Oxygen Delivery Method Room Air Intake Visit Reasons: Obstructive sleep apnea Intake Note: pt is here for follow up and he is tired but he is getting older. He does get very short of breath with some activity but other things he does fine. Section Repairer Required: No Allergies No Known Allergies Allergy (Verified 01/01/24 11:36) Medication List - Last Reconciled 01/01/24 by David Membreno MD apixaban (Eliquis) 5 mg PO BID calcium carbonate-vitamin D3 600 mg-5 mcg (200 unit) 1 tab PO DAILY cholecalciferol (vitamin D3) 25 mcg PO DAILY ferrous sulfate 325 mg PO DAILY furosemide 40 mg PO DIRECTED 90 days metolazone 2.5 mg PO DIRECTED multivitamin 1 tab PO DAILY potassium chloride ER 40 mEq (2 x 20 mEq) PO BID 90 days spironolactone (Aldactone) 25 mg PO DAILY tamsulosin 0.4 mg PO BEDTIME 90 days Do you need a note to return to daycare/school/sports/work: No HPI HPI Obstructive sleep apnea: Details: THIS GENTLEMAN IS 83 YEARS OLD, VERY PLEASANT, VERY ALERT, AND REMAINS ACTIVE. HOWEVER HIS GAIT IS SOMEWHAT SLOW. HE HAS HISTORY OF OBSTRUCTIVE SLEEP APNEA WELL NOCTURNAL HYPOXEMIA. HE HAS TRIED HIS BEST BUT IS NOT ABLE TO USE THE CPAP. WE WANTED TO TREAT HIM AT LEAST WITH OXYGEN 2 L/MINUTE AT NIGHT, BUT INSURANCE HAS DECLINED TO PAY FOR THE OVERNIGHT OXIMETRY RECORDING OR FOR OXYGEN , REQUIRING THAT HE MUST USE THE CPAP AND PROVE THAT HIS OXYGEN IS NOT CORRECTED WITH THIS MODALITY. THIS GENTLEMAN DOES NOT HAVE ANY CHRONIC PULMONARY DISEASE. HE DENIES COUGH OR EXPECTORATION. HE DOES GET SHORT OF BREATH WHEN HE WALKS AROUND, EVEN THOUGH HIS WALKING IS SLOW. HIS SLEEP IS SOMEWHAT FRAGMENTED WHICH MAY BE DUE TO HIS AGE, IF HE DOES NOT GET ENOUGH SLEEP AT NIGHT HE WOULD MAKE IT UP DURING THE DAYTIME. COUNT INCLUDES THE [facility] Medical History SHALONDA (obstructive sleep apnea) Cardiomyopathy Pulmonary hypertension Pacemaker Nonrheumatic tricuspid (valve) insufficiency Chronic right heart failure Current use of anticoagulant therapy Anticoagulated on Coumadin Right rib fracture CHF (congestive heart failure) Nocturnal hypoxemia Peripheral edema Annual physical exam Left tennis elbow Essential hypertension PAF (paroxysmal atrial fibrillation) History of hydrocele Nocturia Bladder outlet obstruction Bladder cancer Prostate cancer Hyperlipidemia HTN (hypertension) Normally functioning cardiac pacemaker present Varicose veins of bilateral lower extremities with other complications Surgical History History of hydrocelectomy Hx of varicose vein stripping Hx of subdural hematoma History of phacoemulsification of cataract of both eyes with intraocular lens implantation Hx of cardiac pacemaker Hx of colonoscopy Hx of parathyroidectomy Hx of cystoscopy Family History Father Cancer Prostate cancer Mother Cancer, Onset Age: 85 Son No problems noted. Daughter No problems noted. Maternal Grandfather No problems noted. Maternal Grandmother No problems noted. Paternal Grandfather No problems noted. Paternal Grandmother No problems noted. Social History Household Members: Spouse Housing: House Are you a primary senior care specialist to a significant other at home: No Do you presently have visiting nurse or other home services: No Alcohol intake: current Alcohol intake frequency: holidays/special occasions only Alcohol type: wine Patient Tobacco Use Status: Never used Tobacco e-Cigarette/Vaping Use: Never Used Advance Directives: Yes Advance Directives on File: Yes Advance Directives Date on File: 05/02/21 Do you have a plan to hurt others: No Plan service: No Current occupational status: retired Cognitive needs: No Hearing needs: No Vision needs: Yes Review of Systems Const All systems reviewed & are unremarkable except as noted in HPI and below Eyes Reports no additional complaints ENT Reports no additional complaints Card Denies chest pain, Reports irregular heart rhythm, Reports leg edema and Denies dyspnea on exertion Resp Denies cough, Denies excessive phlegm production, Denies dyspnea on exertion and Denies wheezing GI Reports no additional complaints Reports erectile dysfunction Musc Reports no additional complaints Skin/Breast Reports system reviewed and no additional complaints, except as documented Neuro Reports no additional complaints Psych Reports no additional complaints Aller/Immun Denies wheezing Physical Exam Vital Signs: Last Vital Signs Pulse 128 H 01/01/24 10:38 BP 96/58 L 01/01/24 10:38 Pulse Ox 94 01/01/24 10:38 Oxygen Delivery Method Room Air 01/01/24 10:38 BMI result Body Mass Index 33.6 Const General: comfortable, no acute distress, alert and awake Orientation/consciousness: patient oriented x3 HEENT Head: Yes normal to inspection General nose exam: No nasal polyps present and No nasal discharge present Face and sinus: Yes sinuses nontender Mouth: oropharynx normal Throat: Yes posterior oropharynx normal Eyes General: appearance normal, both eyes and all related structures Neck Neck: Yes normal visual inspection, Yes no lymphadenopathy, Yes trachea midline and Yes no JVD Thyroid: Thyroid normal Chest Chest palpation & inspection: normal inspection of the chest, normal palpation of entire chest wall and no tenderness Resp Other: Percussion note is resonant, breath sounds are only slightly distant. Lungs are basically clear I did not hear any wheezes rhonchi or crepitations. Cardio Palpation: normal PMI Rate: regular rate Rhythm: regular rhythm Heart sounds: no gallops and no murmurs GI Palpation (GI): Soft to palpation, nontender, No hepatosplenomegaly present and no masses Auscultation: normal bowel sounds Back/Spine/Pelvis Thoracic/Lumbar Spine: thoracic and lumbar spine normal to inspection and thoraco-lumbar ROM limited Skin General skin exam: no rashes or lesions noted Neuro General: patient oriented x3 and no focal motor deficits Cranial nerves: Yes CN's II-XII intact bilaterally Extrem General: Yes normal to inspection, Yes no clubbing, cyanosis or edema and Yes no calf tenderness Psych Appearance: grossly normal and well kempt Speech and movement: Normal speech and movement present Office Procedures 6 Minute Walk Time:: 11:15 SPO2 % at rest: 94 Pulse at rest: 90 SPO2 % during excercise: 93 Pulse during excercise: 140 SPO2 % after excercise: 95 Pulse after excercise: 100 Distance in yards walked: 120 Garrett Score: 2 Performance Observations:: Jung walked on level ground without assistance, he walked on room air the entire walk maintaining his SPO2 93-95% no supplemental O2 needed. His HR did increase to 140 bpm at 3mins, his HR recovered to 81 with a brief rest, MD jones. [id number] - 6 Minute Walk Results Reviewed Results Reviewed: 6 MINUTES WALK TEST Assessment & Plan Assessment & Plan (1) SHALONDA (obstructive sleep apnea): Comment: This 83 years old gentleman is a known case of obstructive sleep apnea . He has had CPAP titration study in the sleep lab, He was found to have rather severe obstructive sleep apnea and requiring high pressure ( BIPAP of 22/18 CMs ) along with O2 1 L/minute. Patient tried his best but could not use the BiPAP. Code(s): G47.33 - Obstructive sleep apnea (adult) (pediatric) Category: Medical Plan: discussed with the patient at length. and he does not want to try anymore thus we will send the order to DME to remove the CPAP device from his house, (2) Nocturnal hypoxemia: Comment: PATIENT DOES HAVE ASSOCIATED NOCTURNAL HYPOXEMIA. HE HAS REQUIRED O2 1 L/MINUTE ALONG WITH THE BIPAP. NOW HE IS NOT ABLE TO USE BIPAP. AND ALSO DOES NOT HAVE O2 AT HOME. WE TRY TO ORDER THE O2. BUT PER INSURANCE HE WILL NOT GET OXYGEN , WITH THE DAD NOSES OF SHALONDA, ALL HE HAD TRIED THESE. BIPAP FOR A WHILE Code(s): G47.34 - Idiopathic sleep related nonobstructive alveolar hypoventilation Category: Medical Plan: TRY TO QUALIFY HIM FOR OXYGEN WIT.H THIS 6 MINUTES WALK AND HE DID NOT QUALIFY Orders: Orders AMB 6 minute walk Today G47.34 - Idiopathic sleep related nonobstructive alveolar hypoventilation Coding Level of Care Code Est Pt Level 3 (35756) Diagnoses SHALONDA (obstructive sleep apnea) G47.33 Nocturnal hypoxemia G47.34 CPT Codes Coding ([id number])
[2024-01-01 10:38] VITALS: BP 96/58; PULSE 128; O2SAT 94; BMI 33.6
[2024-01-01 14:16] VITALS: PULSE 90; O2SAT 94
== END 2024-01-01 11:21 | disposition home or self-care (01) ==
PROVIDERS: PCP Internal Medicine; Visit Provider Internal Medicine
DX: G47.33 Obstructive sleep apnea (adult) (pediatric) (principal); G47.34 Idiopathic sleep related nonobstructive alveolar hypoventilation
CPT/HCPCS: 94618; 99213

== ENCOUNTER → 2024-01-01 10:19 | Outpatient (BNVA) | payer MEDICARE, OTHER, SELFPAY | PROVIDERS: PCP Internal Medicine; Visit Provider Internal Medicine | DX: G47.33 Obstructive sleep apnea (adult) (pediatric) (principal); G47.34 Idiopathic sleep related nonobstructive alveolar hypoventilation | CPT/HCPCS: 94618; 99212 ==

== ENCOUNTER 2024-01-01 11:29 | Emergency (ER) | payer MEDICARE, OTHER, SELFPAY ==
[2024-01-01 11:33] VITALS: BP 113/55; PULSE 71; RESP 20; TEMP 36.2; O2SAT 94; BMI 33.7
--- NOTE | 2024-01-01 11:39 | ED_ITS ---
HPI - Skin/Abscess/Foreign Bdy General Chief complaint: Wound/Laceration Stated complaint: Suture removal Time Seen by Provider: 01/01/24 11:39 Source: patient, RN notes reviewed and old records reviewed Mode of arrival: ambulatory History of Present Illness ED Provider: Megan West PA-C HPI narrative: 83-year-old male with past medical history CHF, pacemaker, AFib on Coumadin, presenting to ED for suture removal. Patient was seen and treated in our ED on 12/21 s/p bleeding varicose vein on left foot, 1 figure 8 suture was placed which control bleeding. Patient denies complaints at present, or recurrence of bleeding, redness around site or pain Related Data Home Medications ?Medication ?Instructions ?Recorded ?Confirmed multivitamin 1 tab PO DAILY 05/12/21 01/01/24 calcium carbonate 600 mg-vitamin 1 tab PO DAILY 05/17/23 01/01/24 D3 5 mcg (200 unit) tablet cholecalciferol (vitamin D3) 25 25 mcg PO DAILY 05/17/23 01/01/24 mcg (1,000 unit) tablet ferrous sulfate 325 mg (65 mg 325 mg PO DAILY 07/11/23 01/01/24 iron) tablet Previous Rx's ?Medication ?Instructions ?Recorded spironolactone 25 mg tablet 25 mg PO DAILY #30 tabs 09/07/23 (Aldactone) potassium chloride 20 mEq 40 meq (2 x 20 mEq) PO BID 90 days 10/18/23 tablet,extended release #360 tabs tamsulosin 0.4 mg capsule 0.4 mg PO BEDTIME 90 days #90 caps 11/19/23 apixaban 5 mg tablet (Eliquis) 5 mg PO BID #60 tabs 12/03/23 furosemide 40 mg tablet 40 mg PO DIRECTED 90 days #270 12/06/23 tabs metolazone 2.5 mg tablet 2.5 mg PO DIRECTED #20 tabs 12/17/23 Allergies Allergy/AdvReac Type Severity Reaction Status Date / Time No Known Allergies Allergy Verified 01/01/24 11:36 Review of Systems Review of Systems: Constitutional: No Fever, No Chills Cardiovascular: No Chest Pain, No SOB Respiratory: No Cough, No Sputum, No Wheezing Gastrointestinal: No Nausea, No Abdominal pain Musculoskeletal: No joint pain, No Myalgias, No Joint Swelling Skin: + Skin Lesions, No rash Neuro: No Weakness Yes all other systems are reviewed and are negative Constitutional: Constitutional: Reports as per [facility] Past Medical History Attestation statement: The following information was validated with the patient. Source: old records reviewed Medical History SHALONDA (obstructive sleep apnea) Cardiomyopathy Pulmonary hypertension Pacemaker Nonrheumatic tricuspid (valve) insufficiency Chronic right heart failure Current use of anticoagulant therapy Anticoagulated on Coumadin Right rib fracture CHF (congestive heart failure) Nocturnal hypoxemia Peripheral edema Annual physical exam Left tennis elbow Essential hypertension PAF (paroxysmal atrial fibrillation) History of hydrocele Nocturia Bladder outlet obstruction Bladder cancer Prostate cancer Hyperlipidemia HTN (hypertension) Normally functioning cardiac pacemaker present Varicose veins of bilateral lower extremities with other complications Surgical History History of hydrocelectomy Hx of varicose vein stripping Hx of subdural hematoma History of phacoemulsification of cataract of both eyes with intraocular lens implantation Hx of cardiac pacemaker Hx of colonoscopy Hx of parathyroidectomy Hx of cystoscopy Family History Family History Father Cancer Prostate cancer Mother Cancer, Onset Age: 85 Son No problems noted. Daughter No problems noted. Maternal Grandfather No problems noted. Maternal Grandmother No problems noted. Paternal Grandfather No problems noted. Paternal Grandmother No problems noted. Social History Social History Household Members: Spouse Housing: House Are you a primary care management coordinator to a significant other at home: No Do you presently have visiting nurse or other home services: No Alcohol intake: current Alcohol intake frequency: holidays/special occasions only Alcohol type: wine Patient Tobacco Use Status: Never used Tobacco e-Cigarette/Vaping Use: Never Used Advance Directives Date on File: 05/02/21 service: No Current occupational status: retired Cognitive needs: No Hearing needs: No Vision needs: Yes Physical Exam Vital Signs: Vital Signs: Last Vital Signs Temp 97.2 F 01/01/24 11:33 Pulse 71 01/01/24 11:33 Resp 20 01/01/24 11:33 BP 113/55 L 01/01/24 11:33 Pulse Ox 94 01/01/24 11:33 O2 Del Method Room Air 01/01/24 11:33 BMI result Body Mass Index 33.7 Const: General: cooperative, healthy appearing and no acute distress Orientation/consciousness: patient oriented x3 Limitations: no limitations HEENT: Head: Yes normal to inspection and Yes atraumatic Ears: hearing grossly normal bilaterally General nose exam: Normal external nose present Face and sinus: Yes normal facial exam Eyes: General: appearance normal, both eyes and all related structures EOM: EOMs intact bilaterally Neck: Neck: Yes normal visual inspection and Yes no meningeal signs Resp: Effort & Inspection: normal respiratory effort and no respiratory distress Cardio: Rate: regular rate Skin: Rashes: no rashes Neuro: General: patient oriented x3, tone normal and no meningeal signs Cranial nerves: Yes CN's II-XII intact bilaterally Gait exam (Neuro): Normal gait present Extrem: Other: Figure-eight suture noted to left foot, no active bleeding, no surrounding erythema, fluctuance or induration Medical Decision Making Medical Decision Making MDM Narrative: 83-year-old male with past medical history CHF, pacemaker, AFib on Coumadin, presenting to ED for suture removal. Patient was seen and treated in our ED on 12/21 s/p bleeding varicose vein on left foot, 1 figure 8 suture was placed which control bleeding. On exam vital signs stable, NAD, nontoxic appearing, left foot with [id number] suture intact, no active bleeding, no signs of infection/cellulitis. Suture removed without complication Recommended close PCP follow-up Please refer to course for remaining clinical decision making, interpretation of labs/imaging results, and discussions with consultants and/or family members. Results discussed with patient including worrisome signs and symptoms and strict return precautions, and when to return to the emergency department. They verbalized understanding and feel safe for discharge at this time. Differential Diagnosis Differential Diagnoses: The differential diagnosis associated with the presentation includes As above External Record Review External record reviewed: Inpatient record, Office record, Outpatient record, Prior outpatient labs, Prior outpatient radiology, Primary care record and Outside ED record Tests considered The following testing was considered but not selected: As above Procedures Procedure Narrative Procedure Narrative: Suture removal 1 suture removed No complications Discharge Plan Discharge Clinical Impression: Visit for suture removal Patient Disposition: Home, Self-Care Instructions: Stitches Removal (ED) Additional Instructions: Keep a close eye on the area, if rebleeds 1st apply direct pressure for 15 minutes without letting go, if bleeding continues return to the emergency department Please follow-up with your doctor If area begins look infected return to the ED Prescriptions: No Action spironolactone [Aldactone] 25 mg tablet 25 mg PO DAILY Qty: 30 5RF tamsulosin 0.4 mg capsule 0.4 mg PO BEDTIME 90 Days Qty: 90 3RF furosemide 40 mg tablet 40 mg PO DIRECTED 90 Days Qty: 270 3RF Rx Instructions: Take two 40mg tabs in the morning and take one 40mg tab in the afternoon. metolazone 2.5 mg tablet 2.5 mg PO DIRECTED Qty: 20 2RF Rx Instructions: Take one tab, 2.5mg on Sunday and - once swelling improves, cut back to Sunday only calcium carbonate-vitamin D3 600 mg-5 mcg (200 unit) Tablet 1 tab PO DAILY cholecalciferol (vitamin D3) 25 mcg (1,000 unit) Tablet 25 mcg PO DAILY ferrous sulfate 325 mg (65 mg iron) tablet 325 mg PO DAILY potassium chloride 20 mEq tablet extended release 40 meq PO BID 90 Days Qty: 360 2RF multivitamin Tablet 1 tab PO DAILY Eliquis 5 mg tablet 5 mg PO BID Qty: 60 5RF Rx Instructions: Dose increased, creatinine 1.27, weight 194 lb Referrals: Minnie Lowe MD [Primary Care Provider] - 3 days Print Language: Mosotho
[2024-01-01 12:04] VITALS: BP 113/55; PULSE 71; RESP 20; TEMP 36.2; O2SAT 94
== END 2024-01-01 12:04 | disposition home or self-care (01) ==
PROVIDERS: Emergency Provider Emergency Medicine Emergency Medical Services; PCP Internal Medicine
DX: Z48.02 Encounter for removal of sutures (principal)
CPT/HCPCS: 99282

== ENCOUNTER 2024-01-15 10:04 | Outpatient (AMB) | payer MEDICARE, OTHER, SELFPAY ==
--- NOTE | 2024-01-15 10:06 | A.OFFVIS_ITS ---
Vital Signs 01/15/24 10:08 Height 5 ft 4 in Weight 189 lb BMI 32.4 BP 120/72 Blood Pressure Location Lt brachial Position Sitting Intake Visit Reasons: 3 month leg check Intake Note: Pt presents to the office today for a 3 month leg check. Pt states his water pills are helping but states he still has some swelling. Pt states he has more swelling in his right leg. Pt denies any numbness or tingling in his legs or feet. Allergies No Known Allergies Allergy (Verified 01/15/24 10:06) HPI HPI 3 month leg check: Details: Very pleasant 83-year-old gentleman presents for follow-up regarding lower extremities. It is significant swelling of bilateral lower extremities. He has a history of congestive heart failure and he had been hospitalized several m onths prior and subsequently diuresed. He had reports that he is doing significantly better. He does have occasional left knee pain. He does note swelling that does persist but is much better right more so than left. He now presents for routine follow-up. [facility] Medical History SHALONDA (obstructive sleep apnea) Cardiomyopathy Pulmonary hypertension Pacemaker Nonrheumatic tricuspid (valve) insufficiency Chronic right heart failure Current use of anticoagulant therapy Anticoagulated on Coumadin Right rib fracture CHF (congestive heart failure) Nocturnal hypoxemia Peripheral edema Annual physical exam Left tennis elbow Essential hypertension PAF (paroxysmal atrial fibrillation) History of hydrocele Nocturia Bladder outlet obstruction Bladder cancer Prostate cancer Hyperlipidemia HTN (hypertension) Normally functioning cardiac pacemaker present Varicose veins of bilateral lower extremities with other complications Surgical History History of hydrocelectomy Hx of varicose vein stripping Hx of subdural hematoma History of phacoemulsification of cataract of both eyes with intraocular lens implantation Hx of cardiac pacemaker Hx of colonoscopy Hx of parathyroidectomy Hx of cystoscopy Family History Father Cancer Prostate cancer Mother Cancer, Onset Age: 85 Son No problems noted. Daughter No problems noted. Maternal Grandfather No problems noted. Maternal Grandmother No problems noted. Paternal Grandfather No problems noted. Paternal Grandmother No problems noted. Social History Household Members: Spouse Housing: House Are you a primary healthcare administrator to a significant other at home: No Do you presently have visiting nurse or other home services: No Alcohol intake: current Alcohol intake frequency: holidays/special occasions only Alcohol type: wine Patient Tobacco Use Status: Never used Tobacco e-Cigarette/Vaping Use: Never Used Advance Directives Date on File: 05/02/21 service: No Current occupational status: retired Cognitive needs: No Hearing needs: No Vision needs: Yes Review of Systems Const Reports as per HPI ENT Reports no additional complaints Card Denies chest pain, Denies chest pain at rest and Denies chest pain with activity Resp Denies chest congestion and Denies cough GI Reports no additional complaints Musc Details: pain over varicosities, aching of lower extremities, swelling, cramping, heaviness and tiredness, itching Denies abnormal gait Skin/Breast Reports pruritus and Denies wounds Neuro Reports no additional complaints and Denies abnormal gait Psych Denies no additional complaints Physical Exam Vital Signs: Last Vital Signs BP 120/72 01/15/24 10:08 BMI result Body Mass Index 32.4 Const General: cooperative, healthy appearing and comfortable Orientation/consciousness: oriented to person, oriented to place and oriented to time Neck Carotids: no bruits Chest Chest palpation & inspection: normal inspection of the chest and normal palpation of entire chest wall Resp Effort & Inspection: normal respiratory effort and able to speak in complete sentences Cardio Rate: regular rate Heart sounds: S1 normal heart sound present and S2 normal heart sound present Peripheral pulses: Peripheral pulses 2+ throughout GI Inspection: Yes normal to inspection Skin Other: +2 edema, CEAP Classification C4 - skin color changes Ep - Etiology Primary As - superficial veins P - reflux General skin exam: dry skin Neuro General: oriented to person, oriented to place and oriented to time Extrem Right lower extremity: full ROM, normal capillary refill and edema Left lower extremity: full ROM, normal capillary refill and edema Psych Mental Status: mental status grossly normal Assessment & Plan Assessment & Plan (1) Varicose veins of left lower extremity with inflammation: Code(s): I83.12 - Varicose veins of left lower extremity with inflammation Category: Medical Plan: At the current time his lower extremities appear to be stable. Limb hesitant to intervene due to his congestive heart failure and overall status. At the current time we did discuss conservative measures including compression wayne vation and exercise. The patient will follow up with us in approximately 6 months time to ensure that his legs continue to progress in the right direction. Thank you for allowing us to assist in his care. If there are any questions or concerns please do not hesitate to contact us (2) Chronic right heart failure: Comment: Echo 06/2023, left ventricular ejection fraction 45-50%, moderate dilated right ventricle, moderate reduced right ventricle systolic function and moderately elevated right ventricular systolic pressure severe left atrial enlargement, mild aortic regurgitation and mild mitral regurgitation Code(s): I50.812 - Chronic right heart failure Category: Medical Plan: Controlled by Cardiology Coding Level of Care Code Est Pt Level 4 (82358) Diagnoses Varicose veins of left lower extremity with inflammation I83.12 Chronic right heart failure I50.812
[2024-01-15 10:08] VITALS: BP 120/72; BMI 32.4
== END 2024-01-15 10:33 | disposition home or self-care (01) ==
PROVIDERS: PCP Internal Medicine; Visit Provider Surgery Vascular Surgery
DX: I83.12 Varicose veins of left lower extremity with inflammation (principal); I50.812 Chronic right heart failure
CPT/HCPCS: 99214

== ENCOUNTER → 2024-01-15 10:04 | Outpatient (BNVA) | payer MEDICARE, OTHER, SELFPAY | PROVIDERS: PCP Internal Medicine; Visit Provider Surgery Vascular Surgery | DX: I83.12 Varicose veins of left lower extremity with inflammation (principal); I11.0 Hypertensive heart disease with heart failure; I50.812 Chronic right heart failure | CPT/HCPCS: 99212 ==

== ENCOUNTER → 2024-01-30 23:59 | Outpatient (BNV) | payer MEDICARE, OTHER, SELFPAY ==
--- NOTE | 2024-02-05 09:36 | A.OFFVIS_ITS ---
Intake Visit Reasons: Remote device check-Biotronik Allergies No Known Allergies Allergy (Verified 01/15/24 10:06) [facility] Medical History SHALONDA (obstructive sleep apnea) Cardiomyopathy Pulmonary hypertension Pacemaker Nonrheumatic tricuspid (valve) insufficiency Chronic right heart failure Current use of anticoagulant therapy Anticoagulated on Coumadin Right rib fracture CHF (congestive heart failure) Nocturnal hypoxemia Peripheral edema Annual physical exam Left tennis elbow Essential hypertension PAF (paroxysmal atrial fibrillation) History of hydrocele Nocturia Bladder outlet obstruction Bladder cancer Prostate cancer Hyperlipidemia HTN (hypertension) Normally functioning cardiac pacemaker present Varicose veins of bilateral lower extremities with other complications Surgical History History of hydrocelectomy Hx of varicose vein stripping Hx of subdural hematoma History of phacoemulsification of cataract of both eyes with intraocular lens implantation Hx of cardiac pacemaker Hx of colonoscopy Hx of parathyroidectomy Hx of cystoscopy Family History Father Cancer Prostate cancer Mother Cancer, Onset Age: 85 Son No problems noted. Daughter No problems noted. Maternal Grandfather No problems noted. Maternal Grandmother No problems noted. Paternal Grandfather No problems noted. Paternal Grandmother No problems noted. Social History Household Members: Spouse Housing: House Are you a primary caretaker grounds to a significant other at home: No Do you presently have visiting nurse or other home services: No Alcohol intake: current Alcohol intake frequency: holidays/special occasions only Alcohol type: wine Patient Tobacco Use Status: Never used Tobacco e-Cigarette/Vaping Use: Never Used Advance Directives Date on File: 05/02/21 service: No Current occupational status: retired Cognitive needs: No Hearing needs: No Vision needs: Yes Office Procedures Cardiac Device Check Cardiac Device Check Details: Date of service- 01/30/2024 ; Battery life 40%; normal lead parameters; AP 29%; [employer] 89%; likely in AF since about mid december. Overall normal device function. [id number] Cardiac Device Interrogation, pacemaker Procedure code (CPT) selection complete Assessment & Plan Assessment & Plan (1) Persistent atrial fibrillation: Comment: s/p pacemaker Code(s): I48.19 - Other persistent atrial fibrillation Category: Medical Plan x Coding Level of Care Code Procedure Only Diagnoses Persistent atrial fibrillation I48.19 CPT Codes Cardiac Device Check - Cardiac Device 12: [id number] Cardiac Device Interrogation, pacemaker ([id number])
== END ==
PROVIDERS: PCP Internal Medicine; Visit Provider Internal Medicine
DX: I48.19 Other persistent atrial fibrillation (principal); Z95.0 Presence of cardiac pacemaker
CPT/HCPCS: 93294

== ENCOUNTER 2024-02-13 11:17 | Outpatient (AMB) | payer MEDICARE, OTHER, SELFPAY ==
--- NOTE | 2024-02-13 11:23 | A.OFFVIS_ITS ---
Vital Signs 02/13/24 11:26 02/13/24 11:26 Height 5 ft 4 in Weight 198 lb BMI 34.0 BP 102/60 102/68 Blood Pressure Location Lt brachial Position Sitting Pulse 120 H Pulse Source Pulse Oximeter Pulse Oximetry (%) 95 Oxygen Delivery Method Room Air Intake Visit Reasons: Obstructive sleep apnea Intake Note: pt is here for follow up Roundhouse Supervisor Required: No Allergies No Known Allergies Allergy (Verified 02/13/24 11:31) Medication List - Last Reconciled 02/13/24 by David Membreno MD apixaban (Eliquis) 5 mg PO BID calcium carbonate-vitamin D3 600 mg-5 mcg (200 unit) 1 tab PO DAILY cholecalciferol (vitamin D3) 25 mcg PO DAILY ferrous sulfate 325 mg PO DAILY furosemide 40 mg PO DIRECTED 90 days metolazone 2.5 mg PO DIRECTED multivitamin 1 tab PO DAILY potassium chloride ER 40 mEq (2 x 20 mEq) PO BID 90 days spironolactone (Aldactone) 25 mg PO DAILY tamsulosin 0.4 mg PO BEDTIME 90 days Do you need a note to return to daycare/school/sports/work: No HPI HPI Obstructive sleep apnea: Details: Is 83 years old very pleasant gentleman is here for follow-up for his sleep apnea. He does rather severe obstructive sleep apnea with minimal nocturnal hypoxemia. He struggled to use the CPAP at night but could not tolerated, We had tried to qualify him for some oxygen at night but could not qualify him. Today he tells me that his sleep pattern is actually better than before. He does sleep for about 4 hours at night at a stretch and then tosses and turns around. In the morning hours he does have a tendency to take a brief nap in a recliner. He does try to take a brief nap in the afternoon as well. Overall he is getting about 6 hours of sleep in 24 hours. He claims that he is always alert and as energetic as he can expect as his age of 83. He keeps himself busy in doing household works. He is a good reader and also does some writing. His general health his remaining very stable. [facility] Medical History SHALONDA (obstructive sleep apnea) Cardiomyopathy Pulmonary hypertension Pacemaker Nonrheumatic tricuspid (valve) insufficiency Chronic right heart failure Current use of anticoagulant therapy Anticoagulated on Coumadin Right rib fracture CHF (congestive heart failure) Nocturnal hypoxemia Peripheral edema Annual physical exam Left tennis elbow Essential hypertension PAF (paroxysmal atrial fibrillation) History of hydrocele Nocturia Bladder outlet obstruction Bladder cancer Prostate cancer Hyperlipidemia HTN (hypertension) Normally functioning cardiac pacemaker present Varicose veins of bilateral lower extremities with other complications Surgical History History of hydrocelectomy Hx of varicose vein stripping Hx of subdural hematoma History of phacoemulsification of cataract of both eyes with intraocular lens implantation Hx of cardiac pacemaker Hx of colonoscopy Hx of parathyroidectomy Hx of cystoscopy Family History Father Cancer Prostate cancer Mother Cancer, Onset Age: 85 Son No problems noted. Daughter No problems noted. Maternal Grandfather No problems noted. Maternal Grandmother No problems noted. Paternal Grandfather No problems noted. Paternal Grandmother No problems noted. Social History Household Members: Spouse Housing: House Are you a primary elderly caregiver to a significant other at home: No Do you presently have visiting nurse or other home services: No Alcohol intake: current Alcohol intake frequency: holidays/special occasions only Alcohol type: wine Patient Tobacco Use Status: Never used Tobacco e-Cigarette/Vaping Use: Never Used Advance Directives Date on File: 05/02/21 service: No Current occupational status: retired Cognitive needs: No Hearing needs: No Vision needs: Yes Review of Systems Const All systems reviewed & are unremarkable except as noted in HPI and below Eyes Reports no additional complaints ENT Reports no additional complaints Card Denies chest pain, Reports irregular heart rhythm, Reports leg edema and Denies dyspnea on exertion Resp Denies cough, Denies excessive phlegm production, Denies dyspnea on exertion and Denies wheezing GI Reports no additional complaints Reports erectile dysfunction Musc Reports no additional complaints Skin/Breast Reports system reviewed and no additional complaints, except as documented Neuro Reports no additional complaints Psych Reports no additional complaints Aller/Immun Denies wheezing Physical Exam Const General: comfortable, no acute distress, alert and awake Orientation/consciousness: patient oriented x3 HEENT Head: Yes normal to inspection General nose exam: No nasal polyps present and No nasal discharge present Face and sinus: Yes sinuses nontender Mouth: oropharynx normal Throat: Yes posterior oropharynx normal Eyes General: appearance normal, both eyes and all related structures Neck Neck: Yes normal visual inspection, Yes no lymphadenopathy, Yes trachea midline and Yes no JVD Thyroid: Thyroid normal Chest Chest palpation & inspection: normal inspection of the chest, normal palpation of entire chest wall and no tenderness Resp Other: Percussion note is resonant, breath sounds are only slightly distant. Lungs are basically clear I did not hear any wheezes rhonchi or crepitations. Cardio Palpation: normal PMI Rate: regular rate Rhythm: regular rhythm Heart sounds: no gallops and no murmurs GI Palpation (GI): Soft to palpation, nontender, No hepatosplenomegaly present and no masses Auscultation: normal bowel sounds Back/Spine/Pelvis Thoracic/Lumbar Spine: thoracic and lumbar spine normal to inspection and thoraco-lumbar ROM limited Skin General skin exam: no rashes or lesions noted Neuro General: patient oriented x3 and no focal motor deficits Cranial nerves: Yes CN's II-XII intact bilaterally Extrem General: Yes normal to inspection, Yes no calf tenderness and Yes edema (Chronic stasis edema of the legs) Psych Appearance: grossly normal and well kempt Speech and movement: Normal speech and movement present Assessment & Plan Assessment & Plan (1) SHALONDA (obstructive sleep apnea): Comment: This 83 years old gentleman is a known case of obstructive sleep apnea . He has had CPAP titration study in the sleep lab, He was found to have rather severe obstructive sleep apnea and requiring high pressure ( BIPAP of 22/18 CMs ) along with O2 1 L/minute. HE TRIED HIS BEST AND COULD NOT USE THE CPAP OR BIPAP. Code(s): G47.33 - Obstructive sleep apnea (adult) (pediatric) Category: Medical Plan: We talked about sleep apnea at length. We talked about the amount of sleep that he needs. He say is his sleep pattern is better and he satisfied with the amount of sleep, He does get about 6 hours of sleep every day, He remains alert and does not have any daytime sleepiness. I discussed with him the alternate modes of treatment especially ENRIQUE DENTAL DEVICE OR INSPIRE . Pros and cons were discussed. He is not interested in any interventional treatments . (2) Nocturnal hypoxemia: Comment: PATIENT DOES HAVE ASSOCIATED NOCTURNAL HYPOXEMIA. HE HAS REQUIRED O2 1 L/MINUTE ALONG WITH THE BIPAP. NOW HE IS NOT ABLE TO USE BIPAP. AND ALSO DOES NOT HAVE O2 AT HOME. WE TRY TO ORDER THE O2. BUT PER INSURANCE HE WILL NOT GET OXYGEN , WITH THE DAD NOSES OF SHALONDA, ALL HE HAD TRIED THESE. BIPAP FOR A WHILE Code(s): G47.34 - Idiopathic sleep related nonobstructive alveolar hypoventilation Category: Medical Plan: I discussed with him in detail and told him is not absolutely necessary for him to use the oxygen. Coding Level of Care Code Est Pt Level 3 (76575) Diagnoses SHALONDA (obstructive sleep apnea) G47.33 Nocturnal hypoxemia G47.34
[2024-02-13 11:26] VITALS: BP 102/60; BP 102/68; PULSE 120; O2SAT 95; BMI 34.0
== END 2024-02-13 11:57 | disposition home or self-care (01) ==
PROVIDERS: PCP Internal Medicine; Visit Provider Internal Medicine
DX: G47.33 Obstructive sleep apnea (adult) (pediatric) (principal); G47.34 Idiopathic sleep related nonobstructive alveolar hypoventilation
CPT/HCPCS: 99213

== ENCOUNTER → 2024-02-13 11:17 | Outpatient (BNVA) | payer MEDICARE, OTHER, SELFPAY | PROVIDERS: PCP Internal Medicine; Visit Provider Internal Medicine | DX: G47.33 Obstructive sleep apnea (adult) (pediatric) (principal); G47.34 Idiopathic sleep related nonobstructive alveolar hypoventilation | CPT/HCPCS: 99212 ==

== ENCOUNTER 2024-02-26 07:30 | Outpatient (REF) | payer MEDICARE, OTHER, SELFPAY ==
[2024-02-26 10:14] LABS: MANUAL DIFF FLAG NO
[2024-02-26 10:30] LABS: Basophils Absolute Auto 0.1 X10*3/uL (0.0-0.2); Eosinophils Absolute Auto 0.1 X10*3/uL (0.0-0.4); Eosinophils Percent Auto 2.1 % (0-4); Hematocrit 40.6 % (42.0-52.0); Hemoglobin 13.4 g/dl (14.0-18.0); Imm Gran Abs Auto 0.01 X10*3/uL (0.00-0.03); Imm Gran Pct Auto 0.2 % (0.0-0.4); Lymphocytes Absolute Auto 1.3 X10*3/uL (1.2-4.9); Lymphocytes Percent Auto 21.7 % (20-40); Mean Corpuscular Hemoglobin 31.8 pg (27.0-33.0); Mean Corpuscular Volume 96.2 fL (80.0-98.0); Mean Platelet Volume 11.1 fL (9.4-12.4); Monocytes Absolute Auto 0.9 X10*3/uL (0.1-1.2); Monocytes Percent Auto 15.5 % (2-11); Neutrophils Absolute Auto 3.6 x10*3/uL (2.0-8.3); Neutrophils Percent Auto 59.5 % (45-73); Red Blood Count 4.22 X10*6/uL (4.60-5.80); Red Cell Distribution Width 14.8 % (11.0-16.0); White Blood Count 6.1 X10*3/uL (4.8-10.8)
[2024-02-26 10:32] LABS: Platelet Count 145 X10*3/uL (160-400)
[2024-02-26 10:59] LABS: Alanine Aminotransferase 22 U/L (0-40); Alkaline Phosphatase 129 U/L (39-117); Anion Gap 16 (12-20); Aspartate Amino Transferase 31 U/L (5-37); Bilirubin Total 1.8 mg/dL (0.0-1.0); Blood Urea Nitrogen 60 mg/dL (9-16); Calcium 9.6 mg/dL (8.4-10.2); Carbon Dioxide 30 mmol/L (22-29); Chloride 98 mmol/L (96-108); Estimated Glomerular Filt Rate 27; Glucose Random 96 mg/dL (60-115); Potassium 3.9 mmol/L (3.3-5.1); Sodium 140 mmol/L (135-145); Total Protein 7.6 g/dL (6.5-8.0)
[2024-02-26 11:14] LABS: Prostate Specific Antigen < 0.10 ng/mL (<0.05-4.0)
[2024-02-28 10:13] LABS: PES - Abn Protein Band 1 0.3 g/dL (NONE DETECTED); Prot Elec - Albumin 3.9 g/dL (3.8-4.8); Prot Elec - Alpha1 0.3 g/dL (0.2-0.3); Prot Elec - Alpha2 0.5 g/dL (0.5-0.9); Prot Elec - Beta 1 0.4 g/dL (0.4-0.6); Prot Elec - Beta 2 0.3 g/dL (0.2-0.5); Prot Elec - Gamma 1.5 g/dL (0.8-1.7); Prot Elec - Total Protein 6.9 g/dL (6.1-8.1)
[2024-02-29 17:08] LABS: Kappa Light Chain, Free Serum 129.5 mg/L (3.3-19.4); Kappa/Lambda Lt Ch Free Ratio 3.44 (0.26-1.65); Lambda Light Chain, Free Serum 37.6 mg/L (5.7-26.3)
[2024-02-29 18:27] LABS: IgA 156 mg/dL (70-320); IgG 1751 mg/dL (600-1540); IgM 82 mg/dL (50-300)
[2024-03-04 16:59] LABS: Kappa, Serum 333 mg/dL (176-443); Kappa/Lambda Ratio, Serum 1.75 (1.29-2.55); Lambda, Serum 190 mg/dL (91-240)
== END 2024-02-26 07:31 | disposition home or self-care (01) ==
LOC: HO.HMGCLDS 07:30
PROVIDERS: PCP Internal Medicine; Referring Provider Urology; Visit Provider Internal Medicine Medical Oncology
DX: C61 Malignant neoplasm of prostate (principal); N40.0 Benign prostatic hyperplasia without lower urinary tract symptoms; D47.2 Monoclonal gammopathy; Z12.5 Encounter for screening for malignant neoplasm of prostate
CPT/HCPCS: 36415; 80053; 82784; 83521; 83883; 84153; 84165; 85025; 86334

== ENCOUNTER 2024-03-03 10:03 | Outpatient (AMB) | payer MEDICARE, OTHER, SELFPAY ==
--- NOTE | 2024-03-03 10:04 | MHC.OFFVIS ---
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 Allergies No Known Allergies Allergy (Verified 03/03/24 10:08) Medication List - Last Reconciled 03/03/24 by Nithya Trinh NP-C amiodarone 200 mg orally; Take 2 tablets Twice a day for 14 days - then reduce dose to 1 tablet daily 30 days apixaban (Eliquis) 5 mg PO BID calcium carbonate-vitamin D3 600 mg-5 mcg (200 unit) 1 tab PO DAILY cholecalciferol (vitamin D3) 25 mcg PO DAILY ferrous sulfate 325 mg PO DAILY furosemide 40 mg PO DIRECTED 90 days metolazone 2.5 mg PO DIRECTED multivitamin 1 tab PO DAILY potassium chloride ER 40 mEq (2 x 20 mEq) PO BID 90 days spironolactone (Aldactone) 25 mg PO DAILY tamsulosin 0.4 mg PO BEDTIME 90 days HPI HPI 3 mth fu: Details: Monica is an 83-year-old male with past medical history of hypertension, hyperlipidemia, paroxysmal atrial fibrillation, tricuspid regurgitation, pacemaker, chronic right heart failure who was noted to have increasing amounts of atrial fibrillation on his pacemaker remote monitoring. Was started on amiodarone load and now presents for follow-up. Today he reports that he has been doing well since his last follow-up in November. He does not feel the atrial fibrillation. No recent change to his breathing. He tells me he has gained 10 lb recently and is unclear why. He does have some tight swelling in his lower extremities as well as reported scrotal edema. He has been taking Lasix 80 mg in the morning and 40 mg in the afternoon as directed. He has no PND, orthopnea. No chest discomfort at rest or with activity. He denies heart palpitations, lightheadedness, presyncope, syncope, falls. No bleeding issues reported. Taking all meds as directed. [facility] Medical History SHALONDA (obstructive sleep apnea) Cardiomyopathy Pulmonary hypertension Pacemaker Nonrheumatic tricuspid (valve) insufficiency Chronic right heart failure Current use of anticoagulant therapy Anticoagulated on Coumadin Right rib fracture CHF (congestive heart failure) Nocturnal hypoxemia Peripheral edema Annual physical exam Left tennis elbow Essential hypertension PAF (paroxysmal atrial fibrillation) History of hydrocele Nocturia Bladder outlet obstruction Bladder cancer Prostate cancer Hyperlipidemia HTN (hypertension) Normally functioning cardiac pacemaker present Varicose veins of bilateral lower extremities with other complications Surgical History History of hydrocelectomy Hx of varicose vein stripping Hx of subdural hematoma History of phacoemulsification of cataract of both eyes with intraocular lens implantation Hx of cardiac pacemaker Hx of colonoscopy Hx of parathyroidectomy Hx of cystoscopy Family History Father Cancer Prostate cancer Mother Cancer, Onset Age: 85 Son No problems noted. Daughter No problems noted. Maternal Grandfather No problems noted. Maternal Grandmother No problems noted. Paternal Grandfather No problems noted. Paternal Grandmother No problems noted. Social History Household Members: Spouse Housing: House Are you a primary director of career services to a significant other at home: No Do you presently have visiting nurse or other home services: No Alcohol intake: current Alcohol intake frequency: holidays/special occasions only Alcohol type: wine Patient Tobacco Use Status: Never used Tobacco e-Cigarette/Vaping Use: Never Used Advance Directives Date on File: 05/02/21 service: No Current occupational status: retired Cognitive needs: No Hearing needs: No Vision needs: Yes Review of Systems Const All systems reviewed & are unremarkable except as noted in HPI and below ENT Denies dizziness Card Denies chest pain, Denies chest pain at rest, Denies chest pain with activity, Denies rapid heart rate, Denies pedal edema, Denies edema, Reports leg edema, Denies lightheadedness, Denies palpitations, Denies dyspnea, Denies dyspnea on exertion and Denies orthopnea Resp Denies cough, Denies dyspnea and Denies dyspnea on exertion GI Denies hematochezia and Denies change in stool character Musc Denies abnormal gait, Denies limited range of motion, Denies muscle cramps, Denies muscle weakness, Denies numbness, Denies radiating pain into limb, Denies stiffness and Denies tingling Neuro Denies abnormal gait, Denies dizziness, Denies numbness and Denies tingling Endo Denies palpitations Physical Exam Vital Signs: Last Vital Signs Pulse 69 03/03/24 10:05 BP 102/60 03/03/24 10:05 BMI result Body Mass Index 35.9 Const General: cooperative, healthy appearing, comfortable and no acute distress Orientation/consciousness: patient oriented x3 Neck Neck: Yes normal visual inspection and Yes no JVD Chest Chest palpation & inspection: normal inspection of the chest Resp Effort & Inspection: normal respiratory effort Auscultation: clear to auscultation bilaterally, no crackles, no rales, no rhonchi and no wheezes Cardio Jugular venous distension: no JVD Rate: regular rate Rhythm: regular rhythm Heart sounds: S1 normal heart sound present, S2 normal heart sound present, no gallops, no murmurs and no rubs Neuro General: patient oriented x3 Extrem Other: mild nonpitting edema of lower legs Psych Appearance: grossly normal Mental Status: mental status grossly normal Speech and movement: Normal speech and movement present Office Procedures EKG Details: Today, read by me, ventricular paced rhythm, rate 69, QTC 537 milliseconds [id number], Complete Assessment & Plan Assessment & Plan (1) PAF (paroxysmal atrial fibrillation): Comment: S/P pacemaker, on Coumadin Code(s): I48.0 - Paroxysmal atrial fibrillation Category: Medical Plan: History of paroxysmal atrial fibrillation. He had not been on any rate slowing medications. He was on Eliquis for anticoagulation. Recently his remote monitoring has shown increasing amounts of paroxysmal atrial fibrillation, V rate controlled. He was started on amiodarone load for 2 weeks to be followed by 200 mg once daily. Today he reports he has been feeling good with no recent changes to symptoms. He denies heart palpitations or shortness of breath. He will start the maintenance dose of amiodarone in 2 days. EKG done today shows V paced rhythm, rate 69. He likely has underlying atrial fibrillation at present. Will check labs in another week, CMP and TSH to assess amiodarone tolerance. Will continue to follow his rhythm remotely. Cardiology office visit in 3 months, sooner if needed. (2) Chronic right heart failure: Comment: Echo 06/2023, left ventricular ejection fraction 45-50%, moderate dilated right ventricle, moderate reduced right ventricle systolic function and moderately elevated right ventricular systolic pressure severe left atrial enlargement, mild aortic regurgitation and mild mitral regurgitation Code(s): I50.812 - Chronic right heart failure Category: Medical Plan: History of chronic right heart failure. Last echo done on 07/11/2023 showing EF 45-50%, moderately reduced RV systolic function, mild aortic and mitral regurgitation, moderately elevated RVSP and RA pressures. Last heart failure admission 06/2023. Since then his condition has been fairly stable. At this point he is on metolazone 2.5 mg once weekly, Lasix 80 mg in the a.m. and 40 mg in the p.m., Aldactone 25 mg daily. Labs done on 02/26/2024 shows potassium 3.9, creatinine 2.28 which is high for him. He does have evidence of fluid overload on exam with recent 10 lb weight gain, tight edema in his lower extremities and reported scrotal edema. His lungs are clear on exam. Will have him take an additional dose of Lasix 40 mg once daily for the next 4 days. Recheck of labs in 1 week including BNP. Signs and symptoms of heart failure reviewed with him. Continue 48 oz fluid restriction, low-salt diet. Emergency care if warranted. (3) Ascending aorta dilatation: Code(s): I77.810 - Thoracic aortic ectasia Category: Medical Plan: Echo 07/11/2023 shows ascending aorta 4.6 cm. Will follow with periodic echoes. Blood pressure well controlled. (4) Nonrheumatic tricuspid (valve) insufficiency: Code(s): I36.1 - Nonrheumatic tricuspid (valve) insufficiency Category: Medical Plan: Mild tricuspid regurgitation. May be related to pacemaker wire that goes through valve and is sitting in right ventricle. Managing with diuretics at this time. (5) Current use of anticoagulant therapy: Code(s): Z79.01 - shelter (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 Plan: He is on Eliquis for anticoagulation as above. (6) Essential hypertension: Comment: Off BP medications Code(s): I10 - Essential (primary) hypertension Category: Medical Plan: Well controlled at present. No med changes made. (7) Pacemaker: Code(s): Z95.0 - Presence of cardiac pacemaker Category: Medical Plan: Biotronik dual-chamber pacemaker in place. Functioning normally on office interrogation done last visit. Next office interrogation due in 6 months. Continue with remote pacemaker monitoring. Plan Time spent with chart review, documentation, interview and assessment Orders: Orders Comprehensive Met. Panel Today I50.812 - Chronic right heart failure TSH reflex Free T4 Today I50.812 - Chronic right heart failure B Type Natriuretic Peptide Today I50.812 - Chronic right heart failure Coding Level of Care Code Est Pt Level 4 (67740) Diagnoses PAF (paroxysmal atrial fibrillation) I48.0 Chronic right heart failure I50.812 Ascending aorta dilatation I77.810 Nonrheumatic tricuspid (valve) insufficiency I36.1 Current use of anticoagulant therapy Z79.01 Essential hypertension I10 Pacemaker Z95.0 CPT Codes EKG - CPT: [id number], Complete ([id number]) Time Spent (min) 36
[2024-03-03 10:05] VITALS: BP 102/60; PULSE 69; BMI 35.9
== END 2024-03-03 10:42 | disposition home or self-care (01) ==
PROVIDERS: PCP Internal Medicine; Visit Provider Nurse Practitioner Family
DX: I48.0 Paroxysmal atrial fibrillation (principal); I50.812 Chronic right heart failure; I77.810 Thoracic aortic ectasia; I36.1 Nonrheumatic tricuspid (valve) insufficiency; Z79.01 Long term (current) use of anticoagulants; I10 Essential (primary) hypertension; Z95.0 Presence of cardiac pacemaker
CPT/HCPCS: 93010; 99214

== ENCOUNTER 2024-03-03 18:21 | Emergency (ER) | payer MEDICARE, OTHER, SELFPAY ==
[2024-03-03 18:24] VITALS: BP 116/71; PULSE 70; RESP 18; TEMP 36.3; O2SAT 97; BMI 34.3
--- NOTE | 2024-03-03 18:28 | ED_ITS ---
HPI - General Adult General Chief complaint: Wound/Laceration Stated complaint: right leg bleeding ? laceration Time Seen by Provider: 03/03/24 20:11 Source: patient and family ( Spouse) Mode of arrival: ambulatory Limitations: no limitations History of Present Illness ED Provider: DR. Beyer HPI narrative: 83-year-old male on Eliquis for atrial flutter , CHF came in for evaluation of bleeding varicose vein from right leg, no trauma or injury to the right leg, patient has been bleeding from a varicose vein since yesterday applied compression dressing that control the bleeding patient still bleeding once you remove the dressing and start to spray out No chest pain, no shortness of breath, no dizziness, no shortness of breath. Related Data Home Medications ?Medication ?Instructions ?Recorded ?Confirmed multivitamin 1 tab PO DAILY 05/12/21 03/03/24 calcium carbonate 600 mg-vitamin 1 tab PO DAILY 05/17/23 03/03/24 D3 5 mcg (200 unit) tablet cholecalciferol (vitamin D3) 25 25 mcg PO DAILY 05/17/23 03/03/24 mcg (1,000 unit) tablet ferrous sulfate 325 mg (65 mg 325 mg PO DAILY 07/11/23 03/03/24 iron) tablet Previous Rx's ?Medication ?Instructions ?Recorded spironolactone 25 mg tablet 25 mg PO DAILY #30 tabs 09/07/23 (Aldactone) potassium chloride 20 mEq 40 meq (2 x 20 mEq) PO BID 90 days 10/18/23 tablet,extended release #360 tabs tamsulosin 0.4 mg capsule 0.4 mg PO BEDTIME 90 days #90 caps 11/19/23 apixaban 5 mg tablet (Eliquis) 5 mg PO BID #60 tabs 12/03/23 furosemide 40 mg tablet 40 mg PO DIRECTED 90 days #270 12/06/23 tabs metolazone 2.5 mg tablet 2.5 mg PO DIRECTED #20 tabs 12/17/23 amiodarone 200 mg tablet 200 mg PO .COMPLEX atrial 02/19/24 fibrillation 30 days #70 tabs Allergies Allergy/AdvReac Type Severity Reaction Status Date / Time No Known Allergies Allergy Verified 03/03/24 18:27 Review of Systems 2 Review of Systems: All other systems are reviewed and are negative Constitutional: Reports as per HPI and Reports no additional constitutional complaints Eyes: Reports as per HPI and Reports no additional eye complaints Reports system reviewed and no additional complaints, except as documented Cardiovascular: Reports as per HPI and Reports no additional cardiovascular complaints Respiratory: Reports as per HPI and Reports no additional respiratory complaints Gastrointestinal: Reports as per HPI and Reports no additional gastrointestinal complaints Genitourinary: Reports no additional female genitourinary complaints Musculoskeletal: Reports no additional musculoskeletal complaints Skin/Breast: Reports system reviewed and no additional complaints, except as docu Psychiatric: Reports no additional psychiatric complaints Endocrine: Reports no additional endocrine complaints Hematologic/Lymphatic: Reports no additional hematologic/lymphatic complaints Allergic/Immunologic: Reports no additional allergic/immunologic complaints Reports system reviewed and no additional complaints, except as documented and Reports Abnormal speech present [facility] Past Medical History Medical History SHALONDA (obstructive sleep apnea) Cardiomyopathy Pulmonary hypertension Pacemaker Nonrheumatic tricuspid (valve) insufficiency Chronic right heart failure Current use of anticoagulant therapy Anticoagulated on Coumadin Right rib fracture CHF (congestive heart failure) Nocturnal hypoxemia Peripheral edema Annual physical exam Left tennis elbow Essential hypertension PAF (paroxysmal atrial fibrillation) History of hydrocele Nocturia Bladder outlet obstruction Bladder cancer Prostate cancer Hyperlipidemia HTN (hypertension) Normally functioning cardiac pacemaker present Varicose veins of bilateral lower extremities with other complications Surgical History History of hydrocelectomy Hx of varicose vein stripping Hx of subdural hematoma History of phacoemulsification of cataract of both eyes with intraocular lens implantation Hx of cardiac pacemaker Hx of colonoscopy Hx of parathyroidectomy Hx of cystoscopy Family History Family History Father Cancer Prostate cancer Mother Cancer, Onset Age: 85 Son No problems noted. Daughter No problems noted. Maternal Grandfather No problems noted. Maternal Grandmother No problems noted. Paternal Grandfather No problems noted. Paternal Grandmother No problems noted. Social History Social History Household Members: Spouse Housing: House Are you a primary critical care nurse specialist to a significant other at home: No Do you presently have visiting nurse or other home services: No Alcohol intake: current Alcohol intake frequency: holidays/special occasions only Alcohol type: wine Patient Tobacco Use Status: Never used Tobacco e-Cigarette/Vaping Use: Never Used Advance Directives: Yes Advance Directives on File: Yes Advance Directives Date on File: 05/02/21 service: No Current occupational status: retired Cognitive needs: No Hearing needs: No Vision needs: Yes Physical Exam ED Vital Signs: Vital Signs - 24 hr 03/03/24 18:24 Temperature 97.4 F Pulse Rate 70 Respiratory Rate 18 Blood Pressure 116/71 Pulse Oximetry 97 Oxygen Delivery Method Room Air BMI result Body Mass Index 34.3 Vital signs have been reviewed and appear to be correct. Blood pressure elevated. Heart rate normal. Respiratory rate normal. Temperature normal. Oxygen saturation normal. Appearance: Alert. Oriented X3. No acute distress. Head: Normal external exam. Normocephalic. Atraumatic. No Diaz signs noted. No raccoon eyes noted Eyes: PERRLA. EOMI. Conjunctiva and sclera normal. Eyelids normal. ENT: TM's Normal. Pharynx normal. Uvula midline. Moist mucous membranes. No trismus noted. No drooling noted. No muffled voice noted. Neck: Normal inspection. Neck supple. FROM. No adenopathy. Thyroid Normal. No meningeal signs. No neck mass noted. CVS: Normal heart rate and rhythm. Heart sound normal. No murmurs noted. Pulses normal throughout. Respiratory: No respiratory distress. Painless inspiration. Breath sounds normal. No wheezes/rales/rhonchi noted. Chest nontender. No accessory muscle usage noted or decreased air movement noted. Abdomen: Soft and nontender. Bowel sounds normal in all 4 quadrants. No distention noted. No organomegaly noted. No visible injury noted. Back: No CVA tenderness. Full range of motion noted. Skin: Skin warm and dry. Normal skin color. Normal skin turgor. No rashes/lesions/lacerations noted. Extremities: Diffuse varicose vein to both lower extremities, active bleeding from a varicose vein behind the right knee, that is stops Temporary with pressure once removed the pressure started to spray out Neuro: Oriented X 3. Cranial nerve exam: II-XII are grossly intact No motor deficit. No sensory deficit. Reflexes normal. Course Course Course Narrative: RME performed by Darlene Jon PA-C. Patient is an 83 year old assigned male at presenting to the emergency department with right lower leg bleeding. Patient states over the last day he has had right lower leg bleeding and he is on an anticoagulant medication. Detailed physical exam and review of systems are deferred to the airframe technical officer. Patient placed back in the waiting room pending room availability. Reevaluation(s) Reevaluation #1: Patient required 1 suture to the bleeding varicose vein that stopped the bleeding, patient was observed in the emergency department for 45 minutes without dressing no active bleeding, hemodynamically stable, labs at baseline. [facility] to follow-up with PCP. Time: 19:00 Procedures Laceration Laceration 1: Site: lower extremity ( Varicose vein behind the right knee.) Side (If applicable): right Size (cm): 0.5 Local Anesthetic: lidocaine 1% Amount of anesthesia used (mL): 3 Skin layer closed with: nylon (1) Medical Decision Making Differential Diagnosis Differential Diagnoses: The differential diagnosis associated with the presentation includes ( Active bleeding, severe anemia, electrolyte derangement, ensure proper anticoagulation.) Admission/Observation Consideration of admission/observation: Escalation of care including admission/observation considered Lab Data MDM Lab Attestation statement: I reviewed the patient's lab results. 03/03/24 20:48 03/03/24 20:48 Labs: Lab Results 03/03/24 Range/Units 20:48 WBC 6.7 (4.8-10.8) X10*3/uL RBC 4.18 L (4.60-5.80) X10*6/uL Hgb 13.2 L (14.0-18.0) g/dl Hct 39.6 L (42.0-52.0) % MCV 94.7 (80.0-98.0) fL MCH 31.6 (27.0-33.0) pg MCHC 33.3 (31.0-36.0) g/dl RDW 14.6 (11.0-16.0) % Plt Count 149 L (160-400) X10*3/uL MPV 10.6 (9.4-12.4) fL Immature Gran % (Auto) 0.3 (0.0-0.4) % Neut % (Auto) 70.5 (45-73) % Lymph % (Auto) 14.7 L (20-40) % [place] % (Auto) 13.9 H (2-11) % Eos % (Auto) 0.0 (0-4) % Baso % (Auto) 0.6 (0-2) % Lymph # (Auto) 1.0 L (1.2-4.9) X10*3/uL [place] # (Auto) 0.9 (0.1-1.2) X10*3/uL Eos # (Auto) 0.0 (0.0-0.4) X10*3/uL Baso # (Auto) 0.0 (0.0-0.2) X10*3/uL Abs Immat Gran (auto) 0.02 (0.00-0.03) X10*3/uL Absolute Neuts (auto) 4.8 (2.0-8.3) x10*3/uL Absolute Nucleated RBC 0.000 (0.0-0.012) X10*3/uL Nucleated RBC % (auto) 0.0 (0.0-0.2) /100WBC APTT 38.8 H D (26.0-36.8) SEC Sodium 140 (135-145) mmol/L Potassium 4.0 (3.3-5.1) mmol/L Chloride 101 (96-108) mmol/L Carbon Dioxide 30 H (22-29) mmol/L Anion Gap 13 (12-20) BUN 48 H (9-16) mg/dL Creatinine 2.14 H (0.5-1.4) mg/dL Estim Creat Clear Calc 25.6 Estimated GFR 30 Random Glucose 97 (60-115) mg/dL Calcium 9.2 (8.4-10.2) mg/dL Discharge Plan Discharge Clinical Impression: Bleeding from varicose veins of right lower extremity Patient Disposition: Home, Self-Care Instructions: Stitches Removal (ED) Additional Instructions: you have 1 suture in the back of your right leg that needs to come out in 5-7 days, please return to the emergency department or see your PCP for your suture removal. Prescriptions: No Action spironolactone [Aldactone] 25 mg tablet 25 mg PO DAILY Qty: 30 5RF tamsulosin 0.4 mg capsule 0.4 mg PO BEDTIME 90 Days Qty: 90 3RF furosemide 40 mg tablet 40 mg PO DIRECTED 90 Days Qty: 270 3RF Rx Instructions: Take two 40mg tabs in the morning and take one 40mg tab in the afternoon. metolazone 2.5 mg tablet 2.5 mg PO DIRECTED Qty: 20 2RF Rx Instructions: Take one tab, 2.5mg on Sunday and - once swelling improves, cut back to Sunday only amiodarone 200 mg tablet 200 mg PO .COMPLEX 30 Days Qty: 70 1RF Rx Instructions: 200 mg orally; Take 2 tablets Twice a day for 14 days - then reduce dose to 1 tablet daily calcium carbonate-vitamin D3 600 mg-5 mcg (200 unit) Tablet 1 tab PO DAILY cholecalciferol (vitamin D3) 25 mcg (1,000 unit) Tablet 25 mcg PO DAILY ferrous sulfate 325 mg (65 mg iron) tablet 325 mg PO DAILY potassium chloride 20 mEq tablet extended release 40 meq PO BID 90 Days Qty: 360 2RF multivitamin Tablet 1 tab PO DAILY Eliquis 5 mg tablet 5 mg PO BID Qty: 60 5RF Rx Instructions: Dose increased, creatinine 1.27, weight 194 lb Referrals: Minnie Lowe MD [Primary Care Provider] - Bryant Smith MD [Physician] - Print Language: Palauan
[2024-03-03 20:54] LABS: MANUAL DIFF FLAG NO
[2024-03-03 20:55] LABS: Basophils Percent Auto 0.6 % (0-2); Hematocrit 39.6 % (42.0-52.0); Hemoglobin 13.2 g/dl (14.0-18.0); Imm Gran Abs Auto 0.02 X10*3/uL (0.00-0.03); Imm Gran Pct Auto 0.3 % (0.0-0.4); Lymphocytes Percent Auto 14.7 % (20-40); Mean Corpuscular HGB Conc 33.3 g/dl (31.0-36.0); Mean Corpuscular Hemoglobin 31.6 pg (27.0-33.0); Mean Corpuscular Volume 94.7 fL (80.0-98.0); Mean Platelet Volume 10.6 fL (9.4-12.4); Monocytes Absolute Auto 0.9 X10*3/uL (0.1-1.2); Monocytes Percent Auto 13.9 % (2-11); Neutrophils Absolute Auto 4.8 x10*3/uL (2.0-8.3); Neutrophils Percent Auto 70.5 % (45-73); Platelet Count 149 X10*3/uL (160-400); Red Blood Count 4.18 X10*6/uL (4.60-5.80); Red Cell Distribution Width 14.6 % (11.0-16.0); White Blood Count 6.7 X10*3/uL (4.8-10.8)
[2024-03-03 21:03] LABS: Partial Thromboplastin Time 38.8 SEC (26.0-36.8)
[2024-03-03 21:07] LABS: Anion Gap 13 (12-20); Blood Urea Nitrogen 48 mg/dL (9-16); Calcium 9.2 mg/dL (8.4-10.2); Carbon Dioxide 30 mmol/L (22-29); Chloride 101 mmol/L (96-108); Creatinine Clr Calc Pharmacy 25.6; Estimated Glomerular Filt Rate 30; Glucose Random 97 mg/dL (60-115); Sodium 140 mmol/L (135-145)
[2024-03-03 21:27] VITALS: BP 116/71; PULSE 70; RESP 18; TEMP 36.3; O2SAT 97
== END 2024-03-03 21:27 | disposition home or self-care (01) ==
PROVIDERS: Emergency Provider Emergency Medicine; PCP Internal Medicine
DX: I83.891 Varicose veins of right lower extremity with other complications (principal); I48.92 Unspecified atrial flutter; I50.9 Heart failure, unspecified; Z79.01 Long term (current) use of anticoagulants; Z79.899 Other long term (current) drug therapy
CPT/HCPCS: 12001; 36415; 80048; 85025; 85730; 93005; 99212; 99282; 99283

== ENCOUNTER 2024-03-06 10:04 | Outpatient (REF) | payer MEDICARE, OTHER, SELFPAY ==
[2024-03-06 13:48] LABS: B Type Natriuretic Peptide 353 pg/mL (<100)
[2024-03-06 13:56] LABS: Alanine Aminotransferase 21 U/L (0-40); Albumin Level 3.7 g/dL (3.5-5.0); Alkaline Phosphatase 123 U/L (39-117); Anion Gap 14 (12-20); Aspartate Amino Transferase 29 U/L (5-37); Bilirubin Total 1.2 mg/dL (0.0-1.0); Blood Urea Nitrogen 64 mg/dL (9-16); Calcium 9.3 mg/dL (8.4-10.2); Carbon Dioxide 30 mmol/L (22-29); Chloride 99 mmol/L (96-108); Estimated Glomerular Filt Rate 27; Glucose Random 83 mg/dL (60-115); Potassium 4.6 mmol/L (3.3-5.1); Sodium 138 mmol/L (135-145)
[2024-03-06 14:00] LABS: TSH reflex Free T4 1.92 uIU/mL (0.32-4.0)
== END 2024-03-06 10:05 | disposition home or self-care (01) ==
LOC: HO.HMGCLDS 10:04
PROVIDERS: Visit Provider Nurse Practitioner Family
DX: I50.812 Chronic right heart failure (principal)
CPT/HCPCS: 36415; 80053; 83880; 84443

== ENCOUNTER 2024-03-11 08:23 | Outpatient (AMB) | payer MEDICARE, OTHER, SELFPAY ==
--- NOTE | 2024-03-11 08:25 | MHC.OFFWIV ---
Intake Vital Signs 03/11/24 08:27 Height 5 ft 4 in Weight 207 lb BMI 35.5 BP 112/72 Blood Pressure Location Lt brachial Position Sitting Pulse 123 H Pulse Source Pulse Oximeter Temp 97.0 F Temp Source Temporal Artery Scan Pulse Oximetry (%) 97 Oxygen Delivery Method Room Air Intake Visit Reasons: EP stitch removal Intake Note: Pt presents to the office today for removal of stitches on the back of his right knee. Sutures were palcesd on 03/03/24. Patient Tobacco Use Status: Never used Tobacco Allergies No Known Allergies Allergy (Verified 03/11/24 08:28) HPI HPI Comments History of Present Illness Details 83 y/o male patient who presents to the clinic for stitch removal. He had 1 stitch placed in [facility] 03/03/24. He had a cut behind right lower calf, behind right knee. [facility] Medical History SHALONDA (obstructive sleep apnea) Cardiomyopathy Pulmonary hypertension Pacemaker Nonrheumatic tricuspid (valve) insufficiency Chronic right heart failure Current use of anticoagulant therapy Anticoagulated on Coumadin Right rib fracture CHF (congestive heart failure) Nocturnal hypoxemia Peripheral edema Annual physical exam Left tennis elbow Essential hypertension PAF (paroxysmal atrial fibrillation) History of hydrocele Nocturia Bladder outlet obstruction Bladder cancer Prostate cancer Hyperlipidemia HTN (hypertension) Normally functioning cardiac pacemaker present Varicose veins of bilateral lower extremities with other complications Surgical History History of hydrocelectomy Hx of varicose vein stripping Hx of subdural hematoma History of phacoemulsification of cataract of both eyes with intraocular lens implantation Hx of cardiac pacemaker Hx of colonoscopy Hx of parathyroidectomy Hx of cystoscopy Family History Father Cancer Prostate cancer Mother Cancer, Onset Age: 85 Son No problems noted. Daughter No problems noted. Maternal Grandfather No problems noted. Maternal Grandmother No problems noted. Paternal Grandfather No problems noted. Paternal Grandmother No problems noted. Social History Household Members: Spouse Housing: House Are you a primary healthcare corporate account director to a significant other at home: No Do you presently have visiting nurse or other home services: No Alcohol intake: current Alcohol intake frequency: holidays/special occasions only Alcohol type: wine Patient Tobacco Use Status: Never used Tobacco e-Cigarette/Vaping Use: Never Used Advance Directives Date on File: 05/02/21 service: No Current occupational status: retired Cognitive needs: No Hearing needs: No Vision needs: Yes Review of Systems Const All systems reviewed & are unremarkable except as noted in HPI and below Physical Exam Vital Signs: Last Vital Signs Temp 97.0 F 03/11/24 08:27 Pulse 123 H 03/11/24 08:27 BP 112/72 03/11/24 08:27 Pulse Ox 97 03/11/24 08:27 Oxygen Delivery Method Room Air 03/11/24 08:27 BMI result Body Mass Index 35.5 Const General: cooperative Nutritional Appearance: obese Orientation/consciousness: patient oriented x3 Skin Other: Removed 1 stitch with no bleeding or tenderness. Wound completely healed, clean and dry. General skin exam: no rashes or lesions noted Neuro General: patient oriented x3, gait normal and moves all extremities Psych Speech and movement: Normal speech and movement present Assessment & Plan Assessment & Plan (1) Visit for suture removal: Code(s): Z48.02 - Encounter for removal of sutures Plan: Removed one stitch behind right knee Calf region Pt tolerated procedure well Wound dry and clean Coding Level of Care Code Est Pt Level 3 (73517) Diagnoses Visit for suture removal Z48.02 Time Spent (min) 15
[2024-03-11 08:27] VITALS: BP 112/72; PULSE 123; TEMP 36.1; O2SAT 97; BMI 35.5
== END 2024-03-11 08:42 | disposition home or self-care (01) ==
PROVIDERS: PCP Internal Medicine; Visit Provider Nurse Practitioner Family
DX: Z48.02 Encounter for removal of sutures (principal)

== ENCOUNTER → 2024-03-11 08:23 | Outpatient (BNVA) | payer MEDICARE, OTHER, SELFPAY | PROVIDERS: PCP Internal Medicine; Visit Provider Nurse Practitioner Family | DX: Z48.02 Encounter for removal of sutures (principal) | CPT/HCPCS: 99212 ==

== ENCOUNTER 2024-03-26 13:29 | Outpatient (REF) | payer MEDICARE, OTHER, SELFPAY ==
[2024-03-26 15:29] LABS: Anion Gap 14 (12-20); Blood Urea Nitrogen 60 mg/dL (9-16); Calcium 9.4 mg/dL (8.4-10.2); Carbon Dioxide 33 mmol/L (22-29); Chloride 95 mmol/L (96-108); Estimated Glomerular Filt Rate 27; Glucose Random 120 mg/dL (60-115); Potassium 3.4 mmol/L (3.3-5.1); Sodium 139 mmol/L (135-145)
[2024-03-26 15:54] LABS: Prostate Specific Antigen < 0.10 ng/mL (<0.05-4.0)
[2024-03-26 17:26] LABS: B Type Natriuretic Peptide 391 pg/mL (<100)
== END 2024-03-26 13:30 | disposition home or self-care (01) ==
LOC: HO.LAB 13:29
PROVIDERS: Urology; Visit Provider Nurse Practitioner Family
DX: I50.812 Chronic right heart failure (principal); C61 Malignant neoplasm of prostate; Z12.5 Encounter for screening for malignant neoplasm of prostate
CPT/HCPCS: 36415; 80048; 83880; 84153

== ENCOUNTER → 2024-04-01 15:02 | Outpatient (BNVA) | payer MEDICARE, OTHER, SELFPAY | PROVIDERS: PCP Internal Medicine; Referring Provider Nurse Practitioner Family; Visit Provider Internal Medicine Hypertension Specialist | DX: Z00.00 Encounter for general adult medical examination without abnormal findings (principal); N17.9 Acute kidney failure, unspecified; E87.3 Alkalosis; N18.30 Chronic kidney disease, stage 3 unspecified; N32.0 Bladder-neck obstruction; D47.2 Monoclonal gammopathy | CPT/HCPCS: 99202 ==

== ENCOUNTER 2024-04-01 15:06 | Outpatient (AMB) | payer MEDICARE, OTHER, SELFPAY ==
[2024-04-01 15:05] VITALS: BP 96/50; PULSE 81; O2SAT 94; BMI 33.6
--- NOTE | 2024-04-01 15:05 | HO.NEPHOV ---
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 Required: No Accompanied by: Self / Same As Patient Allergies No Known Allergies Allergy (Verified 04/01/24 15:08) Medication List - Last Reconciled 04/01/24 by Dread Justice MD acetaminophen ER (Tylenol 8 Hour) 650 mg PO Q8H amiodarone 200 mg PO BID apixaban (Eliquis) 5 mg PO BID calcium carbonate-vitamin D3 600 mg-5 mcg (200 unit) 1 tab PO DAILY cholecalciferol (vitamin D3) 25 mcg PO DAILY ferrous sulfate 325 mg PO DAILY furosemide 40 mg PO .evening furosemide 80 mg PO .Morning metolazone 2.5 mg PO DIRECTED multivitamin 1 tab PO DAILY potassium chloride ER 40 mEq (2 x 20 mEq) PO BID 90 days tamsulosin 0.4 mg PO BEDTIME 90 days HPI Comments Details: Monica is a pleasant 83-year-old man who has been referred for acute kidney injury and resistant edema He is on escalating dose of 3 diuretics and there has been no improvement in the edema. He has developed JB with contraction alkalosis. Baseline creatinine has been around 1.2 mg/dL which has increased to 2.3 mg/dL Has a history of cardiomyopathy and non rheumatic tricuspid regurgitation. He has a history of atrial fibrillation and currently on anticoagulation. Echocardiogram in 06/30/2023 showed mildly reduced LV ejection fraction of 45-50%. Moderately dilated right ventricle with moderately reduced RV systolic function Biatrial enlargement with severe left atrial enlargement Moderate elevation of right ventricular systolic pressure. History of bladder cancer and prostate cancer. History of bladder outlet obstruction in the past. He has anemia. 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 [facility] Medical History SHALONDA (obstructive sleep apnea) Cardiomyopathy Pulmonary hypertension Pacemaker Nonrheumatic tricuspid (valve) insufficiency Chronic right heart failure Current use of anticoagulant therapy Anticoagulated on Coumadin Right rib fracture CHF (congestive heart failure) Nocturnal hypoxemia Peripheral edema Annual physical exam Left tennis elbow Essential hypertension PAF (paroxysmal atrial fibrillation) History of hydrocele Nocturia Bladder outlet obstruction Bladder cancer Prostate cancer Hyperlipidemia HTN (hypertension) Normally functioning cardiac pacemaker present Varicose veins of bilateral lower extremities with other complications Surgical History History of hydrocelectomy Hx of varicose vein stripping Hx of subdural hematoma History of phacoemulsification of cataract of both eyes with intraocular lens implantation Hx of cardiac pacemaker Hx of colonoscopy Hx of parathyroidectomy Hx of cystoscopy Family History Father Cancer Prostate cancer Mother Cancer, Onset Age: 85 Son No problems noted. Daughter No problems noted. Maternal Grandfather No problems noted. Maternal Grandmother No problems noted. Paternal Grandfather No problems noted. Paternal Grandmother No problems noted. Social History Household Members: Spouse Housing: House Are you a primary care transition mgr to a significant other at home: No Do you presently have visiting nurse or other home services: No Alcohol intake: current Alcohol intake frequency: holidays/special occasions only Alcohol type: wine Patient Tobacco Use Status: Never used Tobacco e-Cigarette/Vaping Use: Never Used Advance Directives Date on File: 05/02/21 service: No Current occupational status: retired Cognitive needs: No Hearing needs: No Vision needs: Yes Review of Systems Const Denies fever(s) and Denies weight loss Card Denies chest pain Resp Denies cough and Denies hemoptysis GI Denies abdominal pain, Denies diarrhea and Denies nausea Musc Denies back pain Neuro Denies focal weakness Physical Exam Vital Signs: Last Vital Signs Pulse 81 04/01/24 15:05 BP 96/50 L 04/01/24 15:05 Pulse Ox 94 04/01/24 15:05 Oxygen Delivery Method Room Air 04/01/24 15:05 BMI result Body Mass Index 33.6 Const General: comfortable; No acute distress Orientation/consciousness: patient oriented x3 Eyes General: appearance normal, both eyes and all related structures Visual Martin: normal visual martin by confrontation Neck Neck: Yes supple and Yes no JVD Resp Effort & Inspection: normal respiratory effort and respiratory effort not decreased Auscultation: rhonchi Cardio Palpation: no palpable S3 and no palpable S4 Heart sounds: no rubs GI Inspection: Yes normal to inspection Palpation (GI): Soft to palpation Percussion: Yes normal to percussion Auscultation: normal bowel sounds General: Yes no CVA tenderness Back/Spine/Pelvis Back: no CVA tenderness Skin General skin exam: no petechiae and no purpura Neuro General: patient oriented x3 and no focal motor deficits Extrem General: No clubbing and Yes edema (Massive edema with weeping leg wounds. Scrotal edema) Results Reviewed Nephrology Results: Hgb 13.2 g/dl (14.0-18.0) L 03/03/24 WBC 6.7 X10*3/uL (4.8-10.8) 03/03/24 Plt Count 149 X10*3/uL (160-400) L 03/03/24 Sodium 139 mmol/L (135-145) 03/26/24 Potassium 3.4 mmol/L (3.3-5.1) 03/26/24 Chloride 95 mmol/L (96-108) L 03/26/24 Carbon Dioxide 33 mmol/L (22-29) H 03/26/24 BUN 60 mg/dL (9-16) H 03/26/24 Creatinine 2.30 mg/dL (0.5-1.4) H 03/26/24 Calcium 9.4 mg/dL (8.4-10.2) 03/26/24 Assessment & Plan Assessment & Plan (1) JB (acute kidney injury): Code(s): N17.9 - Acute kidney failure, unspecified Category: Medical (2) Bladder outlet obstruction: Code(s): N32.0 - Bladder-neck obstruction Category: Medical (3) Chronic kidney disease, stage 3: Code(s): N18.30 - Chronic kidney disease, stage 3 unspecified Category: Medical (4) Annual physical exam: Code(s): Z00.00 - Encounter for general adult medical examination without abnormal findings Category: Medical (5) Monoclonal gammopathy: Code(s): D47.2 - Monoclonal gammopathy Category: Medical Plan Monica has acute kidney injury with resistant edema in the setting of right heart failure. 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 This raises the concern for amyloidosis Obstructive uropathy should certainly be ruled out given the history of bladder cancer and bladder outlet obstruction Recommendations Stay on low-sodium diet Keep current diuretics for the time being. Workup as outlined below. He may need a kidney biopsy or fat pad biopsy. Further workup will be based on the outcome of the baseline investigations Orders: Orders UA and rflx microscopic Today Dread Justice MD N17.9 - Acute kidney failure, unspecified, N18.30 - Chronic kidney disease, stage 3 unspecified, N32.0 - Bladder-neck obstruction Total Protein Urine Random Today Dread Justice MD N17.9 - Acute kidney failure, unspecified, N18.30 - Chronic kidney disease, stage 3 unspecified, N32.0 - Bladder-neck obstruction Neutrophil Cytoplasma Ab Today Dread Justice MD N17.9 - Acute kidney failure, unspecified, N18.30 - Chronic kidney disease, stage 3 unspecified, N32.0 - Bladder-neck obstruction Complement C4 Today Dread Justice MD N17.9 - Acute kidney failure, unspecified, N18.30 - Chronic kidney disease, stage 3 unspecified, N32.0 - Bladder-neck obstruction Protein Electrophoresis, Serum Today Dread Justice MD N17.9 - Acute kidney failure, unspecified, N18.30 - Chronic kidney disease, stage 3 unspecified, N32.0 - Bladder-neck obstruction Immunofixation Pnl, Serum Today Dread Justice MD N17.9 - Acute kidney failure, unspecified, N18.30 - Chronic kidney disease, stage 3 unspecified, N32.0 - Bladder-neck obstruction Basic Metabolic Panel Today Dread Justice MD N17.9 - Acute kidney failure, unspecified, N18.30 - Chronic kidney disease, stage 3 unspecified, N32.0 - Bladder-neck obstruction Complete Blood Count Auto Diff Today Dread Justice MD N17.9 - Acute kidney failure, unspecified, N18.30 - Chronic kidney disease, stage 3 unspecified, N32.0 - Bladder-neck obstruction Creatinine Urine Today Dread Justice MD N17.9 - Acute kidney failure, unspecified, N18.30 - Chronic kidney disease, stage 3 unspecified, N32.0 - Bladder-neck obstruction Sodium Urine Random Today Dread Justice MD N17.9 - Acute kidney failure, unspecified, N18.30 - Chronic kidney disease, stage 3 unspecified, N32.0 - Bladder-neck obstruction US renal BI Today Dread Justice MD I10 - Essential (primary) hypertension, N17.9 - Acute kidney failure, unspecified, N18.30 - Chronic kidney disease, stage 3 unspecified, N32.0 - Bladder-neck obstruction Complement C3 Today Dread Justice MD N17.9 - Acute kidney failure, unspecified, N18.30 - Chronic kidney disease, stage 3 unspecified, N32.0 - Bladder-neck obstruction Immunofixation, Random Urine Today rDead Justice MD N17.9 - Acute kidney failure, unspecified, N18.30 - Chronic kidney disease, stage 3 unspecified, N32.0 - Bladder-neck obstruction Medications: Changed From furosemide Take two 40mg tabs in the morning and take one 40mg tab in the afternoon. 40 mg PO DIRECTED 90 days 270 tabs 3RF To furosemide 40 mg PO .evening Nithya M TYLER Trinh-C From amiodarone 200 mg PO DAILY 30 days 30 tabs 5RF atrial fibrillation To amiodarone 200 mg PO BID Nithya M Ziggy, MATRIX INSPECTOR-C Coding Level of Care Code New Pt Level 5 (85433) Diagnoses JB (acute kidney injury) N17.9 Bladder outlet obstruction N32.0 Chronic kidney disease, stage 3 N18.30 Annual physical exam Z00.00 Monoclonal gammopathy D47.2
== END 2024-04-01 15:39 | disposition home or self-care (01) ==
PROVIDERS: PCP Internal Medicine; Referring Provider Nurse Practitioner Family; Visit Provider Internal Medicine Hypertension Specialist
DX: N17.9 Acute kidney failure, unspecified (principal); N32.0 Bladder-neck obstruction; N18.30 Chronic kidney disease, stage 3 unspecified; D47.2 Monoclonal gammopathy
CPT/HCPCS: 99205

== ENCOUNTER 2024-04-02 12:35 | Outpatient (REF) | payer MEDICARE, OTHER, SELFPAY ==
[2024-04-02 12:54] LABS: MANUAL DIFF FLAG NO
[2024-04-02 13:08] LABS: Appearance Urine Clear; Color Urine Yellow; Glucose Urine UA Negative (Negative); Leukocyte Esterase Urine Negative (Negative); Nitrite Urine Negative (Negative); PH 6.5 (5.0-9.0); Urine Blood Negative (Negative); Urine Ketones Negative (Negative); Urine Protein Negative (Neg-Trace)
[2024-04-02 13:41] LABS: Basophils Percent Auto 0.1 % (0-2); Hematocrit 39.1 % (42.0-52.0); Imm Gran Abs Auto 0.13 X10*3/uL (0.00-0.03); Imm Gran Pct Auto 1.4 % (0.0-0.4); Lymphocytes Absolute Auto 0.9 X10*3/uL (1.2-4.9); Lymphocytes Percent Auto 9.9 % (20-40); Mean Corpuscular HGB Conc 33.2 g/dl (31.0-36.0); Mean Corpuscular Hemoglobin 31.8 pg (27.0-33.0); Mean Corpuscular Volume 95.6 fL (80.0-98.0); Mean Platelet Volume 10.7 fL (9.4-12.4); Monocytes Absolute Auto 1.3 X10*3/uL (0.1-1.2); Monocytes Percent Auto 13.6 % (2-11); Neutrophils Absolute Auto 7.1 x10*3/uL (2.0-8.3); Platelet Count 161 X10*3/uL (160-400); Red Blood Count 4.09 X10*6/uL (4.60-5.80); Red Cell Distribution Width 15.1 % (11.0-16.0); White Blood Count 9.4 X10*3/uL (4.8-10.8)
[2024-04-02 14:15] LABS: Creatinine Urine 27.15 mg/dL; Total Protein Urine Random < 7 mg/dL (<12)
[2024-04-02 14:16] LABS: Anion Gap 13 (12-20); Blood Urea Nitrogen 79 mg/dL (9-16); Carbon Dioxide 36 mmol/L (22-29); Chloride 94 mmol/L (96-108); Estimated Glomerular Filt Rate 29; Glucose Random 100 mg/dL (60-115); Potassium 3.5 mmol/L (3.3-5.1); Sodium 139 mmol/L (135-145)
[2024-04-04 11:44] LABS: Complement C3 70 mg/dL
[2024-04-04 13:33] LABS: PES - Abn Protein Band 1 0.3 g/dL (NONE DETECTED); Prot Elec - Albumin 3.8 g/dL (3.8-4.8); Prot Elec - Alpha1 0.3 g/dL (0.2-0.3); Prot Elec - Alpha2 0.5 g/dL (0.5-0.9); Prot Elec - Beta 1 0.4 g/dL (0.4-0.6); Prot Elec - Beta 2 0.3 g/dL (0.2-0.5); Prot Elec - Gamma 1.3 g/dL (0.8-1.7); Prot Elec - Total Protein 6.6 g/dL (6.1-8.1)
[2024-04-07 11:54] LABS: IgA 172 mg/dL (70-320); IgG 1669 mg/dL (600-1540); IgM 96 mg/dL (50-300)
[2024-04-09 14:33] LABS: Neutrophil Cyto Ab Screen ATYP P-ANCA POS (NEGATIVE)
== END 2024-04-02 12:36 | disposition home or self-care (01) ==
LOC: HO.LAB 12:35
PROVIDERS: PCP Internal Medicine; Visit Provider Internal Medicine Hypertension Specialist
DX: N18.30 Chronic kidney disease, stage 3 unspecified (principal); N17.9 Acute kidney failure, unspecified; N32.0 Bladder-neck obstruction
CPT/HCPCS: 80048; 81003; 82570; 82784; 84156; 84165; 84300; 85025; 86036; 86037; 86160; 86334; 86335

== ENCOUNTER 2024-04-04 00:19 | Emergency (ER) | payer MEDICARE, OTHER, SELFPAY ==
[2024-04-04 00:25] VITALS: BP 124/63; PULSE 91; RESP 16; TEMP 36.9; O2SAT 96; BMI 34.1
[2024-04-04 00:48] LABS: MANUAL DIFF FLAG NO
--- NOTE | 2024-04-04 01:10 | ED_ITS ---
HPI - General Adult General Chief complaint: General Medical Stated complaint: bleeding from leg wont stop Time Seen by Provider: 04/04/24 00:56 Source: patient Mode of arrival: ambulatory Limitations: no limitations History of Present Illness ED Provider: Dr. Mouna Grey HPI narrative: patient comes to the emergency room complaining of varicose vein bleeding from the right lower extremity. Patient states that he has had intermittent bleeding from different spots. Today, he could not control the bleeding. Patient's wrapped his leg with a gauze and pressure and came to the emergency room. Patient denies any injuries. Patient takes Eliquis Related Data Home Medications ?Medication ?Instructions ?Recorded ?Confirmed multivitamin 1 tab PO DAILY 05/12/21 04/01/24 calcium carbonate 600 mg-vitamin 1 tab PO DAILY 05/17/23 04/01/24 D3 5 mcg (200 unit) tablet cholecalciferol (vitamin D3) 25 25 mcg PO DAILY 05/17/23 04/01/24 mcg (1,000 unit) tablet ferrous sulfate 325 mg (65 mg 325 mg PO DAILY 07/11/23 04/01/24 iron) tablet acetaminophen 650 mg 650 mg PO Q8H 04/01/24 04/01/24 tablet,extended release (Tylenol 8 Hour) amiodarone 200 mg tablet 200 mg PO BID atrial fibrillation 04/01/24 04/01/24 furosemide 40 mg tablet 40 mg PO .evening 04/01/24 04/01/24 furosemide 80 mg tablet 80 mg PO .Morning 04/01/24 04/01/24 Previous Rx's ?Medication ?Instructions ?Recorded potassium chloride 20 mEq 40 meq (2 x 20 mEq) PO BID 90 days 10/18/23 tablet,extended release #360 tabs tamsulosin 0.4 mg capsule 0.4 mg PO BEDTIME 90 days #90 caps 11/19/23 apixaban 5 mg tablet (Eliquis) 5 mg PO BID #60 tabs 12/03/23 metolazone 2.5 mg tablet 2.5 mg PO DIRECTED #20 tabs 12/17/23 Allergies Allergy/AdvReac Type Severity Reaction Status Date / Time No Known Allergies Allergy Verified 04/04/24 00:25 Review of Systems 2 Review of Systems: Constitutional : No Weight loss, No Fever, No Chills, No Night Sweats, No Fatigue, No Malaise ENT/Mouth : No Hearing loss, No Ear Pain, No Nasal Congestion, No Sinus Pain, No Hoarseness, No sore throat, No Rhinorrhea, No Swallowing Difficulty Eyes: No Eye Pain, No Swelling, No Redness, No Foreign Body, No Discharge, No Vision Changes Cardiovascular : No Chest Pain, No SOB, No Dyspnea on Exertion, No Orthopnea, No Edema, No Palpitations Respiratory : No Cough, No Sputum, No Wheezing, No Smoke Exposure, No Dyspnea Gastrointestinal : No Nausea, No Vomiting, No Diarrhea, No Constipation, No abdominal Pain, No Hematochezia, No Melena Genitourinary : no irregular bleeding, No Dysuria, No Urinary Frequency, No Hematuria, No Urinary Incontinence, No Urgency, No Flank Pain, No Urinary Flow Changes, No Hesitancy Musculoskeletal : No joint pain, No Myalgias, No Joint Swelling Skin : varicose vein bleeding from the right lower extremity Neuro : No Weakness, No Numbness, No Paresthesias, No Loss of Consciousness, No Dizziness, No Headache Psych : No Anxiety/Panic, No Depression, No SI/HI/AH/VH, No Social Issues, Heme/Lymph: No Bruising, No Bleeding,No Lymphadenopathy Endocrine : No Polyuria, No Polydipsia, No Temperature Intolerance PMFSH Past Medical History Medical History SHALONDA (obstructive sleep apnea) Cardiomyopathy Pulmonary hypertension Pacemaker Nonrheumatic tricuspid (valve) insufficiency Chronic right heart failure Current use of anticoagulant therapy Anticoagulated on Coumadin Right rib fracture CHF (congestive heart failure) Nocturnal hypoxemia Peripheral edema Annual physical exam Left tennis elbow Essential hypertension PAF (paroxysmal atrial fibrillation) History of hydrocele Nocturia Bladder outlet obstruction Bladder cancer Prostate cancer Hyperlipidemia HTN (hypertension) Normally functioning cardiac pacemaker present Varicose veins of bilateral lower extremities with other complications Surgical History History of hydrocelectomy Hx of varicose vein stripping Hx of subdural hematoma History of phacoemulsification of cataract of both eyes with intraocular lens implantation Hx of cardiac pacemaker Hx of colonoscopy Hx of parathyroidectomy Hx of cystoscopy Family History Family History Father Cancer Prostate cancer Mother Cancer, Onset Age: 85 Son No problems noted. Daughter No problems noted. Maternal Grandfather No problems noted. Maternal Grandmother No problems noted. Paternal Grandfather No problems noted. Paternal Grandmother No problems noted. Social History Social History Household Members: Spouse Housing: House Are you a primary healthcare administrative assistant to a significant other at home: No Do you presently have visiting nurse or other home services: No Alcohol intake: current Alcohol intake frequency: holidays/special occasions only Alcohol type: wine Patient Tobacco Use Status: Never used Tobacco e-Cigarette/Vaping Use: Never Used Advance Directives Date on File: 05/02/21 Do you have a plan to hurt others: No Plan service: No Current occupational status: retired Cognitive needs: No Hearing needs: No Vision needs: Yes Physical Exam ED Vital Signs: Vital Signs - 24 hr 04/04/24 00:25 Temperature 98.4 F Pulse Rate 91 Respiratory Rate 16 Blood Pressure 124/63 Pulse Oximetry 96 Oxygen Delivery Method Room Air BMI result Body Mass Index 34.1 Const Other: Appearance: Alert. Oriented X3. No acute distress. Eyes: Pupils equal, round and reactive to light. ENT: Pharynx normal. Neck: Normal inspection. Neck supple. No lymph nodes noted. No crepitus CVS: Normal heart rate and rhythm. Pulses normal. Normal S1 and S2 Respiratory: No respiratory distress. Breath sounds normal. No Wheezing. No rales Abdomen: Soft and nontender. No rigidity. No distention. Skin: Skin warm and dry. Normal skin color. Normal skin turgor. Extremities: No lower extremity edema. No Lacerations. No Rash. There is a very small varicose lead in the right lower extremity. Patient has chronic venous stasis Neuro: Oriented X 3. No motor deficit. No sensory deficit. Moving all extremities. No slurred speech. CN 2 through 12 grossly intact Psych: calm, cooperative, normal affect Medical Decision Making Medical Decision Making MDM Narrative: patient presented with very minimal bleeding from the right lower extremity. Patient's wrapped the injury with enough pressure to nearly stop the bleeding. - patient's legs look clean, no signs of cellulitis. A Surgicel was applied an Demetri wrapped. Bleeding controlled Lab Data 04/04/24 00:43 04/04/24 00:43 Discharge Plan Discharge Clinical Impression: Bleeding from varicose vein Patient Disposition: Home, Self-Care Instructions: Venous Insufficiency (DC) Additional Instructions: Please follow-up with your primary care physician tomorrow. If you have any worsening or new symptoms, please return to the emergency room or call 911 Prescriptions: No Action tamsulosin 0.4 mg capsule 0.4 mg PO BEDTIME 90 Days Qty: 90 3RF metolazone 2.5 mg tablet 2.5 mg PO DIRECTED Qty: 20 2RF Rx Instructions: Take one tab, 2.5mg on Sunday and - once swelling improves, cut back to Sunday only calcium carbonate-vitamin D3 600 mg-5 mcg (200 unit) Tablet 1 tab PO DAILY cholecalciferol (vitamin D3) 25 mcg (1,000 unit) Tablet 25 mcg PO DAILY ferrous sulfate 325 mg (65 mg iron) tablet 325 mg PO DAILY potassium chloride 20 mEq tablet extended release 40 meq PO BID 90 Days Qty: 360 2RF multivitamin Tablet 1 tab PO DAILY Eliquis 5 mg tablet 5 mg PO BID Qty: 60 5RF Rx Instructions: Dose increased, creatinine 1.27, weight 194 lb acetaminophen [Tylenol 8 Hour] 650 mg tablet extended release 650 mg PO Q8H furosemide 40 mg tablet 40 mg PO .evening furosemide 80 mg tablet 80 mg PO .Morning amiodarone 200 mg tablet 200 mg PO BID Print Language: Amharic
[2024-04-04 01:12] LABS: Hematocrit 37.4 % (42.0-52.0); Hemoglobin 12.6 g/dl (14.0-18.0); INTERNATIONAL NORM RATIO 1.7 (0.9-1.1); Imm Gran Pct Auto 1.1 % (0.0-0.4); Lymphocytes Absolute Auto 0.9 X10*3/uL (1.2-4.9); Lymphocytes Percent Auto 9.8 % (20-40); Mean Corpuscular HGB Conc 33.7 g/dl (31.0-36.0); Mean Corpuscular Hemoglobin 31.9 pg (27.0-33.0); Mean Corpuscular Volume 94.7 fL (80.0-98.0); Mean Platelet Volume 10.4 fL (9.4-12.4); Monocytes Percent Auto 10.5 % (2-11); Neutrophils Absolute Auto 7.2 x10*3/uL (2.0-8.3); Neutrophils Percent Auto 78.6 % (45-73); Platelet Count 160 X10*3/uL (160-400); Prothrombin Time 19.6 SEC (10.9-12.4); Red Blood Count 3.95 X10*6/uL (4.60-5.80); Red Cell Distribution Width 14.8 % (11.0-16.0); White Blood Count 9.1 X10*3/uL (4.8-10.8)
[2024-04-04 01:14] LABS: Alanine Aminotransferase 64 U/L (0-40); Albumin Level 3.7 g/dL (3.5-5.0); Alkaline Phosphatase 133 U/L (39-117); Anion Gap 16 (12-20); Aspartate Amino Transferase 61 U/L (5-37); Bilirubin Total 1.8 mg/dL (0.0-1.0); Blood Urea Nitrogen 60 mg/dL (9-16); Calcium 8.3 mg/dL (8.4-10.2); Carbon Dioxide 29 mmol/L (22-29); Chloride 96 mmol/L (96-108); Creatinine Clr Calc Pharmacy 26.6; Estimated Glomerular Filt Rate 31; Glucose Random 157 mg/dL (60-115); Sodium 137 mmol/L (135-145); Total Protein 6.8 g/dL (6.5-8.0)
[2024-04-04 01:20] LABS: B Type Natriuretic Peptide 529 pg/mL (<100)
[2024-04-04 01:28] VITALS: BP 116/60; PULSE 74; RESP 17; TEMP 36.7; O2SAT 97
[2024-04-04 01:53] VITALS: BP 116/60; PULSE 74; RESP 17; TEMP 36.7; O2SAT 97
== END 2024-04-04 01:54 | disposition home or self-care (01) ==
PROVIDERS: Emergency Provider Emergency Medicine; PCP Internal Medicine
DX: I83.891 Varicose veins of right lower extremity with other complications (principal); Z79.899 Other long term (current) drug therapy; Z79.01 Long term (current) use of anticoagulants
CPT/HCPCS: 36415; 80053; 83880; 85025; 85610; 99283

== ENCOUNTER 2024-04-08 22:31 | Emergency (ER) | payer MEDICARE, OTHER, SELFPAY ==
[2024-04-08 22:33] VITALS: BP 126/72; PULSE 81; RESP 18; TEMP 36.4; O2SAT 97; BMI 34.2
--- NOTE | 2024-04-09 00:12 | ED_ITS ---
HPI - General Adult General Chief complaint: Extremity Injury, Lower Stated complaint: RT foot bleeding Time Seen by Provider: 04/08/24 23:38 Source: patient, family (Patient's son) and old records reviewed Mode of arrival: ambulatory Limitations: no limitations History of Present Illness ED Provider: Truman HPI narrative: 83-year-old male with past medical history significant for varicose veins, lymphedema, chronic kidney disease, atrial fibrillation on Eliquis, congestive heart failure presents for evaluation of bleeding from his right foot. Patient reports bleeding from his right foot for the last 2 hours. He reports this has happened in the past in his usually from varicose veins He denies any trauma to the foot He is currently following with vascular surgery, Dr. Smith but has not had any procedures as of yet Related Data Home Medications ?Medication ?Instructions ?Recorded ?Confirmed multivitamin 1 tab PO DAILY 05/12/21 04/01/24 calcium carbonate 600 mg-vitamin 1 tab PO DAILY 05/17/23 04/01/24 D3 5 mcg (200 unit) tablet cholecalciferol (vitamin D3) 25 25 mcg PO DAILY 05/17/23 04/01/24 mcg (1,000 unit) tablet ferrous sulfate 325 mg (65 mg 325 mg PO DAILY 07/11/23 04/01/24 iron) tablet acetaminophen 650 mg 650 mg PO Q8H 04/01/24 04/01/24 tablet,extended release (Tylenol 8 Hour) amiodarone 200 mg tablet 200 mg PO BID atrial fibrillation 04/01/24 04/01/24 furosemide 40 mg tablet 40 mg PO .evening 04/01/24 04/01/24 furosemide 80 mg tablet 80 mg PO .Morning 04/01/24 04/01/24 Previous Rx's ?Medication ?Instructions ?Recorded potassium chloride 20 mEq 40 meq (2 x 20 mEq) PO BID 90 days 10/18/23 tablet,extended release #360 tabs tamsulosin 0.4 mg capsule 0.4 mg PO BEDTIME 90 days #90 caps 11/19/23 apixaban 5 mg tablet (Eliquis) 5 mg PO BID #60 tabs 12/03/23 metolazone 2.5 mg tablet 2.5 mg PO DIRECTED #20 tabs 12/17/23 Allergies Allergy/AdvReac Type Severity Reaction Status Date / Time No Known Allergies Allergy Verified 04/08/24 22:36 Review of Systems Constitutional: Constitutional: Denies body ache(s), Denies chills and Denies fever(s) ENT: Denies vertigo and Denies dizziness Cardiovascular: Cardiovascular: Denies chest pain and Denies dyspnea Respiratory: Respiratory: Denies cough and Denies dyspnea Gastrointestinal: Gastrointestinal: Denies abdominal pain Integumentary/Breasts: Skin/Breast: Reports wounds Neurologic: Denies vertigo and Denies dizziness Hematologic/Lymphatic: Hematologic/Lymphatic: Reports easy bleeding PMFSH Past Medical History Medical History SHALONDA (obstructive sleep apnea) Cardiomyopathy Pulmonary hypertension Pacemaker Nonrheumatic tricuspid (valve) insufficiency Chronic right heart failure Current use of anticoagulant therapy Anticoagulated on Coumadin Right rib fracture CHF (congestive heart failure) Nocturnal hypoxemia Peripheral edema Annual physical exam Left tennis elbow Essential hypertension PAF (paroxysmal atrial fibrillation) History of hydrocele Nocturia Bladder outlet obstruction Bladder cancer Prostate cancer Hyperlipidemia HTN (hypertension) Normally functioning cardiac pacemaker present Varicose veins of bilateral lower extremities with other complications Surgical History History of hydrocelectomy Hx of varicose vein stripping Hx of subdural hematoma History of phacoemulsification of cataract of both eyes with intraocular lens implantation Hx of cardiac pacemaker Hx of colonoscopy Hx of parathyroidectomy Hx of cystoscopy Family History Family History Father Cancer Prostate cancer Mother Cancer, Onset Age: 85 Son No problems noted. Daughter No problems noted. Maternal Grandfather No problems noted. Maternal Grandmother No problems noted. Paternal Grandfather No problems noted. Paternal Grandmother No problems noted. Social History Social History Household Members: Spouse Housing: House Are you a primary customer care manager to a significant other at home: No Do you presently have visiting nurse or other home services: No Alcohol intake: current Alcohol intake frequency: holidays/special occasions only Alcohol type: wine Patient Tobacco Use Status: Never used Tobacco e-Cigarette/Vaping Use: Never Used Advance Directives: Yes Advance Directives on File: Yes Advance Directives Date on File: 05/02/21 Do you have a plan to hurt others: No Plan service: No Current occupational status: retired Cognitive needs: No Hearing needs: No Vision needs: Yes Physical Exam ED Vital Signs: Vital Signs - 24 hr 04/08/24 22:33 04/09/24 00:24 Temperature 97.6 F 97.6 F Pulse Rate 81 81 Respiratory Rate 18 18 Blood Pressure 126/72 126/72 Pulse Oximetry 97 97 Oxygen Delivery Method Room Air Room Air BMI result Body Mass Index 34.2 Const General: healthy appearing, comfortable, no acute distress, alert and awake Nutritional Appearance: well nourished Orientation/consciousness: patient oriented x3 HENMT Head: Yes normocephalic and Yes atraumatic Eyes Eyelids: Yes eyelids normal Conjunctivae: conjunctivae normal Sclerae: sclerae normal Corneas: corneas normal Pupils: Equal, round and reactive pupils present EOM: EOMs intact bilaterally Neck Neck: Yes full ROM Resp Effort & Inspection: normal respiratory effort, able to speak in complete sentences and not labored Skin General skin exam: elasticity normal Neuro General: patient oriented x3 Cranial nerves: Yes Equal, round and reactive pupils present and Yes Bilaterally intact EOM present Cognition (Neuro): normal cognition Extrem Other: Moving all extremities well without any obvious deformities. 3+ bilateral pitting edema to lower extremities bilaterally. The patient's right lower extremity is covered in dressings that are blood soak. I removed the dressings myself and there was no active bleeding underneath. The patient has significant varicosities, no obvious sign of bleeding. I cleaned the foot in the were no open wounds Medical Decision Making Medical Decision Making MDM Narrative: The patient has a history of bleeding from varicosities, he is anticoagulated on Eliquis. When I undressed the wounds, there was no obvious source of bleeding. The patient felt that the bleeding was coming from dorsal surface of the right foot on the lateral side. Again, there was no open wound. Any inspected the entire right foot and there was no obvious source of bleeding. There was 2 small cracks the eye covered with skin glue. I discussed with the patient if the bleeding were to persist he could return for a possible suture or additional treatment. I recommend that he follow up with Dr. Smith, by calling tomorrow to make an appointment Differential Diagnosis Differential Diagnoses: The differential diagnosis associated with the presentation includes Bleeding varicosity Laceration Skin tear Coagulopathy Discharge Plan Discharge Clinical Impression: Bleeding from varicose vein Patient Disposition: Home, Self-Care Instructions: Venous Insufficiency (DC), Vein Stripping (DC) Additional Instructions: Your bleeding stopped today prior to my evaluation in the ER. I did put skin glue on 3 areas that may have been the source of bleeding but it was difficult to locate The skin glue is water proof, so you may shower as normal Follow-up with your vein specialist Prescriptions: No Action tamsulosin 0.4 mg capsule 0.4 mg PO BEDTIME 90 Days Qty: 90 3RF metolazone 2.5 mg tablet 2.5 mg PO DIRECTED Qty: 20 2RF Rx Instructions: Take one tab, 2.5mg on Sunday and - once swelling improves, cut back to Sunday only calcium carbonate-vitamin D3 600 mg-5 mcg (200 unit) Tablet 1 tab PO DAILY cholecalciferol (vitamin D3) 25 mcg (1,000 unit) Tablet 25 mcg PO DAILY ferrous sulfate 325 mg (65 mg iron) tablet 325 mg PO DAILY potassium chloride 20 mEq tablet extended release 40 meq PO BID 90 Days Qty: 360 2RF multivitamin Tablet 1 tab PO DAILY Eliquis 5 mg tablet 5 mg PO BID Qty: 60 5RF Rx Instructions: Dose increased, creatinine 1.27, weight 194 lb acetaminophen [Tylenol 8 Hour] 650 mg tablet extended release 650 mg PO Q8H furosemide 40 mg tablet 40 mg PO .evening furosemide 80 mg tablet 80 mg PO .Morning amiodarone 200 mg tablet 200 mg PO BID Interventions: ED Discharge Assessment Last Done: 04/09/24 00:24 Discharge Date/Time: 04/09/24 00:27 Print Language: Andorran
[2024-04-09 00:24] VITALS: BP 126/72; PULSE 81; RESP 18; TEMP 36.4; O2SAT 97
== END 2024-04-09 00:27 | disposition home or self-care (01) ==
PROVIDERS: Emergency Provider Emergency Medicine; PCP Internal Medicine
DX: I83.891 Varicose veins of right lower extremity with other complications (principal); Z79.899 Other long term (current) drug therapy; Z79.01 Long term (current) use of anticoagulants
CPT/HCPCS: 99282

== ENCOUNTER 2024-04-09 13:00 | Outpatient (REF) | payer MEDICARE, OTHER, SELFPAY ==
--- NOTE | ~2024-04-09 | US_ITS ---
EXAMINATION: US RETROPERITONEAL LIMITED (RENAL ONLY) CLINICAL INFORMATION: Hypertension, chronic kidney disease and acute kidney injury. COMPARISON: CT abdomen and pelvis dated 05/20/2023 and 05/17/2023. TECHNIQUE: Real-time imaging of the kidneys. FINDINGS: RIGHT KIDNEY: 12.4 x 5.3 x 5.2 cm (SAG x AP x TRV). The kidney is normal in size, contour, and echogenicity. Renal cortical thickness is normal. No calculi or focal parenchymal lesions. No hydronephrosis. At the upper pole, a 3.8 x 3.6 x 3.3 cm mildly complex cyst is seen, with fine septation. At the lower pole, a 1.5 x 1.4 x 1.5 cm mildly complex cyst is seen, with fine septation. These are stable from 05/17/2023, with likely benign appearances requiring no imaging follow-up. At the lower pole, a 1.4 cm benign, simple cyst is seen. This requires no imaging follow-up. LEFT KIDNEY: 11.9 x 4.5 x 4.8 cm (SAG x AP x TRV). The kidney is normal in size, contour, and echogenicity. Renal cortical thickness is normal. No calculi or focal parenchymal lesions. No hydronephrosis. At the upper pole, 1.3 cm and 1.4 cm benign, simple cysts are seen. At the interpolar aspect, a 1.2 cm benign, simple cyst is seen. These require no imaging follow-up. US/US renal BI IMPRESSION: 1. There are likely benign and benign renal cysts, as detailed. These require no imaging follow-up. 2. No renal solid mass, calculus or hydronephrosis is seen. Electronically signed by: Shahzad White MD 04/10/2024 12:43 PM EDT
== END 2024-04-09 13:01 | disposition home or self-care (01) ==
LOC: HO.HMGCX 13:00
PROVIDERS: PCP Internal Medicine; Visit Provider Internal Medicine Hypertension Specialist
DX: I12.9 Hypertensive chronic kidney disease with stage 1 through stage 4 chronic kidney disease, or unspecified chronic kidney disease (principal); N18.30 Chronic kidney disease, stage 3 unspecified; N17.9 Acute kidney failure, unspecified; N32.0 Bladder-neck obstruction
CPT/HCPCS: 76775

== ENCOUNTER 2024-04-11 10:58 | Outpatient (AMB) | payer MEDICARE, OTHER, SELFPAY ==
--- NOTE | 2024-04-11 11:04 | HO.NEPHOV_ITS ---
Vital Signs 04/11/24 11:05 Height 5 ft 4 in Weight 203 lb BMI 34.8 BP 106/64 Blood Pressure Location Rt brachial Position Sitting Pulse 75 Pulse Source Pulse Oximeter Pulse Oximetry (%) 95 Oxygen Delivery Method Room Air Intake Visit Reasons: Ultrasound Results Extruding Department Supervisor Required: No Accompanied by: Self / Same As Patient Allergies No Known Allergies Allergy (Verified 04/19/24 16:48) HPI Comments Details: 83-year-old man with acute kidney injury and resistant edema. His baseline creatinine has been around 1.2 mg/dL which has increased to 2.3 mg/dL. He has a history of cardiomyopathy and non rheumatic tricuspid regurgitation with atrial fibrillation and currently on anticoagulation. Echocardiogram in 06/30/2023 showed mildly reduced LV ejection fraction of 45-50%.He has history of bladder cancer and prostate cancer as well as H/O bladder outlet obstruction in the past. 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 He denies hematuria or any new systemic complaints. He was seen in follow up [facility] Medical History SHALONDA (obstructive sleep apnea) Cardiomyopathy Pulmonary hypertension Pacemaker Nonrheumatic tricuspid (valve) insufficiency Chronic right heart failure Current use of anticoagulant therapy Anticoagulated on Coumadin Right rib fracture CHF (congestive heart failure) Nocturnal hypoxemia Peripheral edema Annual physical exam Left tennis elbow Essential hypertension PAF (paroxysmal atrial fibrillation) History of hydrocele Nocturia Bladder outlet obstruction Bladder cancer Prostate cancer Hyperlipidemia HTN (hypertension) Normally functioning cardiac pacemaker present Varicose veins of bilateral lower extremities with other complications Surgical History History of hydrocelectomy Hx of varicose vein stripping Hx of subdural hematoma History of phacoemulsification of cataract of both eyes with intraocular lens implantation Hx of cardiac pacemaker Hx of colonoscopy Hx of parathyroidectomy Hx of cystoscopy Family History Father Cancer Prostate cancer Mother Cancer, Onset Age: 85 Son No problems noted. Daughter No problems noted. Maternal Grandfather No problems noted. Maternal Grandmother No problems noted. Paternal Grandfather No problems noted. Paternal Grandmother No problems noted. Social History Household Members: Spouse Housing: House Are you a primary healthcare science specialist to a significant other at home: No Do you presently have visiting nurse or other home services: No Alcohol intake: current Alcohol intake frequency: holidays/special occasions only Alcohol type: wine Patient Tobacco Use Status: Never used Tobacco e-Cigarette/Vaping Use: Never Used Advance Directives Date on File: 05/02/21 service: No Current occupational status: retired Cognitive needs: No Hearing needs: No Vision needs: Yes Review of Systems Const All systems reviewed & are unremarkable except as noted in HPI and below Physical Exam Vital Signs: Last Vital Signs Pulse 75 04/11/24 11:05 BP 106/64 04/11/24 11:05 Pulse Ox 95 04/11/24 11:05 Oxygen Delivery Method Room Air 04/11/24 11:05 BMI result Body Mass Index 34.8 Const General: comfortable and no acute distress Orientation/consciousness: patient oriented x3 HEENT Head: Yes normocephalic Mouth: Normal oral and palatal mucosa present Eyes EOM: EOMs intact bilaterally Neck Neck: Yes supple Resp Auscultation: clear to auscultation bilaterally Cardio Jugular venous distension: no JVD Rate: regular rate GI Palpation (GI): Soft to palpation Auscultation: normal bowel sounds General: Yes no CVA tenderness Back/Spine/Pelvis Back: no CVA tenderness Skin General skin exam: no rashes or lesions noted Neuro General: patient oriented x3 and moves all extremities Extrem General: Yes no pedal edema Results Reviewed Nephrology Results: Hgb 11.1 g/dl (14.0-18.0) L 04/26/24 WBC 6.3 X10*3/uL (4.8-10.8) 04/26/24 Plt Count 171 X10*3/uL (160-400) 04/26/24 Sodium 134 mmol/L (135-145) L 04/26/24 Potassium 3.9 mmol/L (3.3-5.1) 04/26/24 Chloride 98 mmol/L (96-108) 04/26/24 Carbon Dioxide 27 mmol/L (22-29) 04/26/24 BUN 62 mg/dL (9-16) H 04/26/24 Creatinine 1.82 mg/dL (0.5-1.4) H 04/26/24 Calcium 8.8 mg/dL (8.4-10.2) 04/26/24 Phosphorus 3.6 mg/dL (2.7-4.5) 04/24/24 Urine Protein Negative mg/dL (Neg-Trace) 04/19/24 Assessment & Plan Assessment & Plan (1) JB (acute kidney injury): Code(s): N17.9 - Acute kidney failure, unspecified Category: Medical (2) Chronic kidney disease, stage 3: Code(s): N18.30 - Chronic kidney disease, stage 3 unspecified Category: Medical Qualifiers: Chronic kidney disease stage 3 subtype: stage 3b (GFR 30-44) Qualified Code(s): N18.32 - Chronic kidney disease, stage 3b Earl Anderson has H/O acute kidney injury with resistant edema in the setting of right heart failure.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 This raises the concern for amyloidosis. 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 He will need urgent renal biopsy and possibly treatment with Rituximab. He is currently on anticoagulation. He wants to discuss this with Dr Justice. I explained all these and the implications if not treated. He is going to follow up soon in our renal office for continued care. Coding Level of Care Code Est Pt Level 4 (35332) Diagnoses JB (acute kidney injury) N17.9 Stage 3b chronic kidney disease N18.32 Chronic kidney disease stage 3 subtype: stage 3b (GFR 30-44)
[2024-04-11 11:05] VITALS: BP 106/64; PULSE 75; O2SAT 95; BMI 34.8
== END 2024-04-11 11:30 | disposition home or self-care (01) ==
LOC: HO.HKA 10:59
PROVIDERS: PCP Internal Medicine; Visit Provider Internal Medicine Nephrology
DX: N17.9 Acute kidney failure, unspecified (principal); N18.32 Chronic kidney disease, stage 3b
CPT/HCPCS: 99214

== ENCOUNTER → 2024-04-11 10:58 | Outpatient (BNVA) | payer MEDICARE, OTHER, SELFPAY | PROVIDERS: PCP Internal Medicine; Visit Provider Internal Medicine Nephrology | DX: N18.32 Chronic kidney disease, stage 3b (principal); N17.9 Acute kidney failure, unspecified; I42.9 Cardiomyopathy, unspecified; I36.1 Nonrheumatic tricuspid (valve) insufficiency; I48.91 Unspecified atrial fibrillation; I50.810 Right heart failure, unspecified; Z79.01 Long term (current) use of anticoagulants | CPT/HCPCS: 99212 ==

== ENCOUNTER 2024-04-14 10:11 | Outpatient (AMB) | payer MEDICARE, OTHER, SELFPAY ==
[2024-04-14 10:17] VITALS: BP 110/66; PULSE 69; O2SAT 97; BMI 34.3
--- NOTE | 2024-04-14 10:17 | A.OFFPC_ITS ---
Vital Signs 04/14/24 10:17 Height 5 ft 4 in Weight 200 lb BMI 34.3 BP 110/66 Blood Pressure Location Rt brachial Position Sitting Pulse 69 Pulse Source Pulse Oximeter Pulse Oximetry (%) 97 Oxygen Delivery Method Room Air Intake Visit Reasons: 6M F/U per SAULO - see comments Intake Note: Pt is here today for 6 months follow up visit. Allergies No Known Allergies Allergy (Verified 04/14/24 10:20) Medication List - Last Reconciled 04/14/24 by Minnie Lowe MD acetaminophen ER (Tylenol 8 Hour) 650 mg PO Q8H amiodarone 200 mg PO BID apixaban (Eliquis) 5 mg PO BID calcium carbonate-vitamin D3 600 mg-5 mcg (200 unit) 1 tab PO DAILY cholecalciferol (vitamin D3) 25 mcg PO DAILY ferrous sulfate 325 mg PO DAILY furosemide 40 mg PO .evening furosemide 80 mg PO .Morning metolazone 2.5 mg PO DIRECTED multivitamin 1 tab PO DAILY potassium chloride ER 40 mEq (2 x 20 mEq) PO BID 90 days tamsulosin 0.4 mg PO BEDTIME 90 days Tobacco use date assessed: 04/14/24 Fall risk assessment: No Falls in past year Last assessed Fall Risk: 04/14/24 Dental Screening Dental Screen Date: 04/14/24 Did you have a dental visit in the last 12 months?: Yes Did you have a dental problem in the last 6 months where you did not have access to dental care?: No Was dental information given to patient?: Patient has dentist HPI 6M F/U per SAULO - see comments 2 HPI Details Patient presents for follow-up of chronic lower extremity edema secondary to right-sided heart failure treated with high dose of diuretics causing worsening renal function. patient follows up with Nephrology and is considering renal biopsy to rule out amyloidosis. severe obstructive sleep apnea with hypoxia diagnosed last year. Patient has not been able to tolerate CPAP machine but is willing to have a 2nd opinion with sleep Medicine. [facility] Medical History (Updated 04/14/24 @ 15:50 by Minnie oLwe MD) SHALONDA (obstructive sleep apnea) Cardiomyopathy Pulmonary hypertension Pacemaker Nonrheumatic tricuspid (valve) insufficiency Chronic right heart failure Current use of anticoagulant therapy Anticoagulated on Coumadin Right rib fracture CHF (congestive heart failure) Nocturnal hypoxemia Peripheral edema Annual physical exam Left tennis elbow Essential hypertension PAF (paroxysmal atrial fibrillation) History of hydrocele Nocturia Bladder outlet obstruction Bladder cancer Prostate cancer Hyperlipidemia HTN (hypertension) Normally functioning cardiac pacemaker present Varicose veins of bilateral lower extremities with other complications Surgical History History of hydrocelectomy Hx of varicose vein stripping Hx of subdural hematoma History of phacoemulsification of cataract of both eyes with intraocular lens implantation Hx of cardiac pacemaker Hx of colonoscopy Hx of parathyroidectomy Hx of cystoscopy Family History Father Cancer Prostate cancer Mother Cancer, Onset Age: 85 Son No problems noted. Daughter No problems noted. Maternal Grandfather No problems noted. Maternal Grandmother No problems noted. Paternal Grandfather No problems noted. Paternal Grandmother No problems noted. Social History Household Members: Spouse Housing: House Are you a primary manager long term care to a significant other at home: No Do you presently have visiting nurse or other home services: No Alcohol intake: current Alcohol intake frequency: holidays/special occasions only Alcohol type: wine Patient Tobacco Use Status: Never used Tobacco e-Cigarette/Vaping Use: Never Used Advance Directives Date on File: 05/02/21 service: No Current occupational status: retired Cognitive needs: No Hearing needs: No Vision needs: Yes Questionnaire PHQ-9 Over the last 2 weeks, how often have you been bothered by any of the following problems? 1. Little interest or pleasure in doing things: not at all 2. Feeling down, depressed, or hopeless: not at all 3. Trouble falling or staying asleep, or sleeping too much: not at all 4. Feeling tired or having little energy: not at all 5. Poor appetite or overeating: not at all 7. Trouble concentrating on things, such as reading the newspaper or watching television: not at all 8. Moving or speaking so slowly that other people could have noticed. Or the opposite - being so fidgety or restless that you have been moving around a lot more than usual: not at all 9. Thoughts that you would be better off or of hurting yourself in some way: not at all Depression Screening Interpretation: Negative Depression Screening Done: Yes 31173 - PHQ-9 Billing: Yes Source: Developed by Drs. Chago Lowery, Ricardo Capone and colleagues, with an educational jared from [employer]. Thrive Questionnaire Date Thrive assessed: 04/14/24 I am a: Patient What is your living situation today?: I have a steady place to live Within the past 12 months, did the food you bought not last and you didn't have the money to get more?: Never true Within the past 12 months, did you worry whether your food would run out before you got money to buy more?: Never true Do you have trouble paying for medicines?: No Do you have trouble getting transportation to medical appointments?: No Do you have trouble paying your heating and electricity bill?: No Do you have trouble taking care of your child, family member or friend?: No Do you have trouble with day-to-day activities such as bathing, preparing meals, shopping, managing finances, etc.?: No Are you currently unemployed and looking for a job?: No Are you interested in more education?: No Please select the resources that you would like help with: None Currently or been in a relationship where the following occur: No concerns reported THRIVE Score: 0 AUDIT C Alcohol Use Questionnaire (AUDIT-C) 1. How often do you have a drink containing alcohol?: Never 3. How often do you have six or more drinks on one occasion?: Never Total Score: 0 TIMMY-7 AMB Questionnaire TIMMY-7 Date TIMMY - 7 assessed: 04/14/24 Feeling nervous, anxious, or on edge: 0 = Not at all Not being able to stop or control worryin = Not at all Worrying too much about different things: 0 = Not at all Trouble relaxin = Not at all Being so restless that it is hard to sit still: 0 = Not at all Becoming easily annoyed or irritable: 0 = Not at all Feeling afraid as if something awful might happen: 0 = Not at all Total TIMMY-7 score (0-4 normal; 5-9 mild; 10-14 moderate; 15-21 severe): 0 Source: Developed by Jennifer Alcantar Kurt Kroenke and colleagues, with an educational jared from [employer]. TIMMY-7 Assessment Billing TIMMY-7 Assessment Tool: TIMMY-7 Assessment 39621 Review of Systems Const All systems reviewed & are unremarkable except as noted in HPI and below ENT Reports no additional complaints Card Reports no additional complaints Resp Reports no additional complaints GI Reports no additional complaints Reports no additional complaints Physical exam (Primary Care) Vital Signs: Last Vital Signs Pulse 69 04/14/24 10:17 BP 110/66 04/14/24 10:17 Pulse Ox 97 04/14/24 10:17 Oxygen Delivery Method Room Air 04/14/24 10:17 BMI result Body Mass Index 34.3 Tobacco/Smoking Status: Tobacco use Status Tobacco use date assessed 04/14/24 04/14/24 10:25 Patient Tobacco Use Status Never used Tobacco 04/14/24 10:25 e-Cigarette/Vaping Use Never Used 04/14/24 10:25 Depression Screening Interpretation: Negative Thrive Assessment: Date of Thrive Assessment Date Thrive assessed 04/14/24 04/14/24 10:28 Currently or been in a relationship where the following occur: No concerns reported Const General: no acute distress HENMT Head: Yes normal to inspection Face and sinus: Yes normal facial exam Mouth: Normal oral and palatal mucosa present Throat: Yes posterior oropharynx normal Neck Neck: Yes no lymphadenopathy and Yes supple Resp Effort & Inspection: normal respiratory effort Auscultation: clear to auscultation bilaterally Cardio Rhythm: regular rhythm Heart sounds: S1 normal heart sound present and S2 normal heart sound present GI Inspection: Yes normal to inspection Palpation (GI): Soft to palpation Percussion: Yes normal to percussion Extrem Other: Three to 4+ pitting edema bilateral lower extremities Coding Level of Care Code Est Pt Level 5 (29547) Complex EM visit Add On G2211 Diagnoses Sleep apnea G47.30 JB (acute kidney injury) N17.9 Persistent atrial fibrillation I48.19 Chronic right heart failure I50.812 Fatty liver K76.0 Additional Codes TIMMY-7 Assessment Billing - TIMMY-7 Assessment Tool: TIMMY-7 Assessment 99833 ([id number]) Assessment & Plan Assessment & Plan (1) Sleep apnea: Comment: Severe sleep apnea with hypoxia 05/2023 Code(s): G47.30 - Sleep apnea, unspecified Category: Medical Plan: Patient requested a referral for 2nd opinion to sleep medicine to evaluated for treatment (2) JB (acute kidney injury): Code(s): N17.9 - Acute kidney failure, unspecified Category: Medical Plan: Follow-up with nephrology avoid nephrotoxins (3) Persistent atrial fibrillation: Comment: s/p pacemaker Code(s): I48.19 - Other persistent atrial fibrillation Category: Medical Plan: On high dose of amiodarone follow-up with cardiology (4) Chronic right heart failure: Comment: Echo 06/2023, left ventricular ejection fraction 45-50%, moderate dilated right ventricle, moderate reduced right ventricle systolic function and moderately elevated right ventricular systolic pressure severe left atrial enlargement, mild aortic regurgitation and mild mitral regurgitation, SEVERE PULMONARY HYPERTENSION Code(s): I50.812 - Chronic right heart failure Category: Medical Plan: Continue current medications, PATIENT WILL DISCUSS OF SEVERE OBSTRUCTIVE SLEEP APNEA AND HYPOXIA TREATMENT WITH SLEEP MEDICINE. The may be a component of pulmonary toxicity from high dose of amiodarone. (5) Fatty liver: Comment: Question liver cirrhosis on CT of the abdomen 05/2023 Code(s): K76.0 - Fatty (change of) liver, not elsewhere classified Category: Medical Plan: Question of portal hypertension component to chronic lower extremities edema Orders: Referrals Sleep Medicine Referral G47.30 - Sleep apnea, unspecified
== END 2024-04-14 11:14 | disposition home or self-care (01) ==
LOC: HO.HMCC 10:12
PROVIDERS: PCP Internal Medicine; Visit Provider Internal Medicine
DX: G47.30 Sleep apnea, unspecified (principal); N17.9 Acute kidney failure, unspecified; I48.19 Other persistent atrial fibrillation; I50.812 Chronic right heart failure; K76.0 Fatty (change of) liver, not elsewhere classified

== ENCOUNTER → 2024-04-14 10:11 | Outpatient (BNVA) | payer MEDICARE, OTHER, SELFPAY | PROVIDERS: PCP Internal Medicine; Visit Provider Internal Medicine | DX: G47.30 Sleep apnea, unspecified (principal); N17.9 Acute kidney failure, unspecified; I48.19 Other persistent atrial fibrillation; I50.812 Chronic right heart failure; K76.0 Fatty (change of) liver, not elsewhere classified | CPT/HCPCS: 96127; 99212 ==

== ENCOUNTER 2024-04-15 14:15 | Outpatient (AMB) | payer MEDICARE, OTHER, SELFPAY ==
--- NOTE | 2024-04-15 14:21 | A.OFFVIS_ITS ---
Intake Visit Reasons: ED follow up/VV bleeding Intake Note: Patient presents for follow up ED. Patient states he has been to the emergency room three times. He was spraying blood in three different locations on his right leg. Patient's right leg is swollen, red and seeping. Demetri wrap and pants were wet upon removal. Accompanied by: Son Allergies No Known Allergies Allergy (Verified 04/15/24 14:26) HPI HPI ED follow up/VV bleeding: Details: Very pleasant 83-year-old gentleman presents for follow-up regarding varicose veins. He has a prior history of lymphedema chronic kidney disease and AFib on Eliquis. He also has a history significant for congestive heart failure. He has significantly swollen legs and on the right lower extremity he has recurrent bleeding varicosities. They have been a source of an issue for him. He now presents for follow-up evaluation with his son. [facility] Medical History SHALONDA (obstructive sleep apnea) Cardiomyopathy Pulmonary hypertension Pacemaker Nonrheumatic tricuspid (valve) insufficiency Chronic right heart failure Current use of anticoagulant therapy Anticoagulated on Coumadin Right rib fracture CHF (congestive heart failure) Nocturnal hypoxemia Peripheral edema Annual physical exam Left tennis elbow Essential hypertension PAF (paroxysmal atrial fibrillation) History of hydrocele Nocturia Bladder outlet obstruction Bladder cancer Prostate cancer Hyperlipidemia HTN (hypertension) Normally functioning cardiac pacemaker present Varicose veins of bilateral lower extremities with other complications Surgical History History of hydrocelectomy Hx of varicose vein stripping Hx of subdural hematoma History of phacoemulsification of cataract of both eyes with intraocular lens implantation Hx of cardiac pacemaker Hx of colonoscopy Hx of parathyroidectomy Hx of cystoscopy Family History Father Cancer Prostate cancer Mother Cancer, Onset Age: 85 Son No problems noted. Daughter No problems noted. Maternal Grandfather No problems noted. Maternal Grandmother No problems noted. Paternal Grandfather No problems noted. Paternal Grandmother No problems noted. Social History Household Members: Spouse Housing: House Are you a primary personal care home administrator to a significant other at home: No Do you presently have visiting nurse or other home services: No Alcohol intake: current Alcohol intake frequency: holidays/special occasions only Alcohol type: wine Patient Tobacco Use Status: Never used Tobacco e-Cigarette/Vaping Use: Never Used Advance Directives Date on File: 05/02/21 service: No Current occupational status: retired Cognitive needs: No Hearing needs: No Vision needs: Yes Review of Systems Const All systems reviewed & are unremarkable except as noted in HPI and below Reports no additional complaints ENT Reports Normal hearing present Card Denies chest pain, Denies chest pain at rest, Denies chest pain with activity and Denies pedal edema Resp Denies cough GI Denies abdominal pain Musc Denies abnormal gait, Denies muscle cramps and Denies radiating pain into limb Skin/Breast Denies skin ulcer and Denies wounds Neuro Reports Normal hearing present and Denies abnormal gait Psych Reports no additional complaints Physical Exam Const General: cooperative, healthy appearing and comfortable Orientation/consciousness: oriented to person, oriented to place and oriented to time HEENT Head: Yes normal to inspection Neck Neck: Yes normal visual inspection Carotids: no bruits Chest Chest palpation & inspection: normal inspection of the chest Resp Effort & Inspection: normal respiratory effort and able to speak in complete sentences Auscultation: clear to auscultation bilaterally, no crackles, no rales, no rhonchi and no wheezes Cardio Rate: regular rate Rhythm: regular rhythm Heart sounds: S1 normal heart sound present and S2 normal heart sound present Bruits: no carotid bruits Peripheral pulses: Peripheral pulses 2+ throughout GI Inspection: Yes normal to inspection Skin Wounds: no wounds Hair: normal Neuro General: oriented to person, oriented to place and oriented to time Cranial nerves: Yes CN's II-XII intact bilaterally and Yes Normal hearing present Cognition (Neuro): normal cognition Motor exam (neuro): 5/5 motor strength present throughout Extrem Other: venous exam: Right lower extremity +2 edema General: No clubbing, No cyanosis and No edema Psych Appearance: grossly normal Mental Status: mental status grossly normal Speech and movement: Normal speech and movement present Assessment & Plan Assessment & Plan (1) Varicose veins of right lower extremity with inflammation: Comment: 02/16/2023 right great saphenous vein Cyanoacralate ablation 04/02/2023 - right leg operative microphlebectomy Code(s): I83.11 - Varicose veins of right lower extremity with inflammation Category: Medical Plan: In short patient has recurrent bleeding varicosities from the right lower extremity. I have taken the liberty of ordering repeat venous insufficiency testing of the right lower extremity. We have discussed should a bleeding issue recurred direct pressure to the wound and should it be uncontrollable to returned to the emergency room. In addition we did discuss routine conservative measures including compression, elevation, exercise. Patient will follow up with us after venous insufficiency testing. Thank you for allowing us to assist in this patient's care. If there are any questions or concerns please do not hesitate to contact us. Orders: Orders US venous duplex LE RT 1 Week I83.11 - Varicose veins of right lower extremity with inflammation Coding Level of Care Code Est Pt Level 4 (86746) Diagnoses Varicose veins of right lower extremity with inflammation I83.11
== END 2024-04-15 14:51 | disposition home or self-care (01) ==
LOC: HO.HVS 14:16
PROVIDERS: PCP Internal Medicine; Visit Provider Surgery Vascular Surgery
DX: I83.11 Varicose veins of right lower extremity with inflammation (principal)
CPT/HCPCS: 99214

== ENCOUNTER → 2024-04-15 14:15 | Outpatient (BNVA) | payer MEDICARE, OTHER, SELFPAY | PROVIDERS: PCP Internal Medicine; Visit Provider Surgery Vascular Surgery | DX: I83.11 Varicose veins of right lower extremity with inflammation (principal) | CPT/HCPCS: 99212 ==

== ENCOUNTER 2024-04-19 16:37 | Inpatient (IN) | payer MEDICARE, OTHER, SELFPAY ==
--- NOTE | ~2024-04-19 | US_ITS ---
EXAMINATION: US SCROTUM CLINICAL INFORMATION: Scrotal edema. Please evaluate for any abnormal pathology. COMPARISON: Scrotal ultrasound 06/17/2018. CT abdomen and pelvis 04/19/2024 TECHNIQUE: A sonogram of the scrotum was performed assessing allen-scale appearance and color Doppler flow. Spectral Doppler analysis of the arterial and venous flow were performed in the testes bilaterally. FINDINGS: There is bilateral marked scrotal wall thickening. RIGHT: Right testicle measures 3.3 x 1.8 x 2.3 cm, volume 6.9 mL. Spectral Doppler analysis of the arterial and venous flow is normal in the right testis. Right epididymal head is normal in size with a small 3 mm cyst seen. No right hydrocele or varicocele is seen. Right epididymal Doppler flow is normal. A small fat density right inguinal hernia. LEFT: Left testicle measures 3.5 x 2.2 x 2.6 cm, volume 10.1 mL. No focal testicular parenchymal lesions are visualized. Spectral Doppler analysis of the arterial and venous flow is normal in the left testis. Left epididymis was not seen due to the presence of soft tissue swelling along with obscuration related to a fat-containing left inguinal hernia. US/US scrotum IMPRESSION: 1. Marked scrotal wall thickening. 2. Normal-appearing testes. 3. Fat-containing bilateral inguinal hernias. Electronically signed by: Dalton Kam MD 04/21/2024 06:03 PM EST
--- NOTE | ~2024-04-19 | XR_ITS ---
EXAMINATION: XR CHEST CLINICAL INFORMATION: Fever COMPARISON: 07/11/2023 TECHNIQUE: Frontal view of the chest was obtained. FINDINGS: Dual-chamber pacemaker device in place. No significant abnormality is noted involving the heart, lungs, mediastinum, bony thorax or soft tissues. XR/XR chest 1V IMPRESSION: Unremarkable examination. No infiltrate. Electronically signed by: Alfredo Webster MD 04/19/2024 09:29 PM DEDE
--- NOTE | ~2024-04-19 | CT_ITS ---
EXAMINATION: CT ABDOMEN AND PELVIS WITHOUT CONTRAST CLINICAL INFORMATION: Distention, fever COMPARISON: 05/20/2023 TECHNIQUE: Multidetector volumetric imaging was performed from the superior aspect of the liver through the pubic symphysis. Sagittal and coronal reformatted images were obtained on the technologist's workstation. This CT examination was performed using dose optimization techniques as appropriate, variously including the following: *Automated exposure control *Adjustment of mA and/or kV according to patient size (this includes techniques or standardized protocols for targeted exams where dose is matched to indication/reason for exam; i.e. extremities or head) *Use of iterative reconstruction technique DLP: 1184 mGy-cm FINDINGS: LUNG BASES: Old healed right-sided posterior rib deformities. Adjacent pleural thickening and parenchymal lesions which appear to be related to likely sequelae of previous infection. Minor bronchiectasis right greater than left. There is a progressive subplural nodular density measuring approximate 2.7 cm right lower lobe. LIVER, GALLBLADDER, AND BILIARY TREE: The liver is normal in size, shape, and attenuation. No focal hepatic lesion or biliary ductal dilatation is present. Tiny stones within the gallbladder lumen without acute inflammatory changes. PANCREAS: Unremarkable. SPLEEN: Unremarkable. ADRENAL GLANDS: Unremarkable. KIDNEYS AND URETERS: Renal cortical cysts right greater than left unchanged. No new findings. No hydronephrosis. BLADDER: Unremarkable. GASTROINTESTINAL TRACT: Severe diverticulosis especially sigmoid colon. No acute inflammatory changes. No obstruction on the current study. No small bowel pathology. ABDOMINAL WALL: No significant hernia is appreciated. LYMPH NODES: Normal. VASCULAR: Unremarkable. PELVIC VISCERA: Brachytherapy seeds noted throughout the prostate gland. Extensive edematous changes noted within the visualized scrotal sac which has enlarged fat-containing inguinal hernias left greater than right and hydroceles nonspecific as well as skin thickening. Testicles not demonstrated or included in the [id number]. OSSEOUS STRUCTURES: Unremarkable. CT/CT abdomen pelvis wo IV con IMPRESSION: 1. No bowel obstruction on the current study. No acute inflammatory changes. 2. Extensive edematous changes noted within the visualized scrotal sac. Correlate with physical exam. 3. Progressive subplural nodular density right lower lobe. Short interval follow-up recommended. According to the UPDATED 2017 Fleischner Society recommendations, the advised follow-up imaging for a single solid nodule measuring 8 mm or greater is: 4. Consider CT, PET/CT, or tissue sampling at 3 months. 5. Incidental findings as above. Fleischner guidelines were followed. Electronically signed by: Alfredo Webster MD 04/19/2024 09:34 PM [facility]
--- NOTE | ~2024-04-19 | US_ITS ---
EXAMINATION: US TRIPLEX LOWER EXTREMITY, BILATERAL CLINICAL INFORMATION: pain and swelling COMPARISON: Bilateral lower extremity venous duplex 07/11/2023 TECHNIQUE: Color-flow triplex imaging with spectral analysis and compression Doppler were performed on the bilateral lower extremities. FINDINGS: Respiratory variation, normal compression and augmented flow are noted throughout the bilateral lower extremities. The visualized common femoral vein, superficial femoral vein, profunda femoral vein, popliteal vein and midcalf peroneal and posterior tibial venous segments show no evidence of deep venous thrombosis bilaterally. There is no Linares's cyst. US/US venous duplex LE BI IMPRESSION: No evidence of deep venous thrombosis involving the bilateral lower extremities. Electronically signed by: Carli Baez DO 04/19/2024 09:59 PM EST
[2024-04-19 16:41] VITALS: BP 112/58; PULSE 70; O2SAT 95
[2024-04-19 16:45] VITALS: BP 128/70; PULSE 74; RESP 19; TEMP 36.9; O2SAT 98; BMI 32.7
--- NOTE | 2024-04-19 17:00 | PC.NURSE ---
a&ox4. vss and up to date. nsr/a-paced on the cardiac nurse specialist. +thinners. pt presents to the ED today w/ multiple complaints including but not limited to increase in bilateral LE edema/pain (worse on the right), scrotum edema, and tremors. pt reports increased edema x 3 months - compliant w/ diuretics. pt reports burning sensation in right hip to RLE. 3+ pitting edema, erythema, shiny/taught, weeping, clear drainage noted to LE from toes to thighs bilaterally. painful/hot to the touch. scrotum presents as extremely edematous and tender to the touch. redness/swelling noted to scrotum to as well as thighs where skin rubs together. penis presents as inverted. unable to locate/visualize d/t scrotum enlargement. pt denies any urinary sx including dysuria/urgency/frequency/foul odor/drainage. pt currently afebrile but reports subjective chills. pt presents as tremulous. 18gIV placed in the right AC - labs obtained/sent to lab. pt on RA w/o difficulty - no sob/wob noted. respirations even/unlabored. plan of care ongoing. call rubin placed within reach.
[2024-04-19 17:04] LABS: MANUAL DIFF FLAG NO
[2024-04-19 17:05] LABS: Basophils Percent Auto 0.3 % (0-2); Hematocrit 38.3 % (42.0-52.0); Hemoglobin 12.8 g/dl (14.0-18.0); Imm Gran Abs Auto 0.02 X10*3/uL (0.00-0.03); Imm Gran Pct Auto 0.3 % (0.0-0.4); Lymphocytes Absolute Auto 0.4 X10*3/uL (1.2-4.9); Lymphocytes Percent Auto 5.2 % (20-40); Mean Corpuscular HGB Conc 33.4 g/dl (31.0-36.0); Mean Corpuscular Hemoglobin 31.6 pg (27.0-33.0); Mean Corpuscular Volume 94.6 fL (80.0-98.0); Mean Platelet Volume 9.6 fL (9.4-12.4); Monocytes Absolute Auto 0.4 X10*3/uL (0.1-1.2); Monocytes Percent Auto 5.1 % (2-11); Neutrophils Absolute Auto 6.1 x10*3/uL (2.0-8.3); Neutrophils Percent Auto 89.1 % (45-73); Platelet Count 174 X10*3/uL (160-400); Red Blood Count 4.05 X10*6/uL (4.60-5.80); Red Cell Distribution Width 15.4 % (11.0-16.0); White Blood Count 6.9 X10*3/uL (4.8-10.8)
[2024-04-19 17:11] LABS: INTERNATIONAL NORM RATIO 1.7 (0.9-1.1)
[2024-04-19 17:13] LABS: Partial Thromboplastin Time 34.3 SEC (26.0-36.8)
[2024-04-19 17:20] LABS: Alanine Aminotransferase 41 U/L (0-40); Albumin Level 3.7 g/dL (3.5-5.0); Alkaline Phosphatase 140 U/L (39-117); Anion Gap 16 (12-20); Aspartate Amino Transferase 38 U/L (5-37); Bilirubin Total 2.2 mg/dL (0.0-1.0); Blood Urea Nitrogen 57 mg/dL (9-16); Calcium 9.2 mg/dL (8.4-10.2); Carbon Dioxide 26 mmol/L (22-29); Chloride 97 mmol/L (96-108); Creatinine Clr Calc Pharmacy 30.7; Estimated Glomerular Filt Rate 32; Glucose Random 114 mg/dL (60-115); Potassium 4.5 mmol/L (3.3-5.1); Sodium 134 mmol/L (135-145); Total Protein 7.2 g/dL (6.5-8.0)
[2024-04-19 17:24] LABS: B Type Natriuretic Peptide 784 pg/mL (<100)
[2024-04-19 17:37] LABS: Appearance Urine Clear; Color Urine Yellow; Glucose Urine UA Negative (Negative); Leukocyte Esterase Urine Negative (Negative); Nitrite Urine Negative (Negative); PH 5.5 (5.0-9.0); Specific Gravity - Urine 1.015 (1.005-1.025); Urine Blood Negative (Negative); Urine Ketones Negative (Negative); Urine Protein Negative (Neg-Trace)
[2024-04-19 17:42] LABS: Bacteria Urine None Seen (None Seen); Hyaline Casts Urine 0-2 /LPF (0-2); RBC Urine 0-2 /HPF (0-2); Squamous Epithelial Cell Urine 0-2 /HPF (0-2); WBC Urine 0-5 /HPF (0-5)
[2024-04-19 17:42] LABS: Erythrocyte Sedimentation Rate 31 MM/HR (0-15)
--- NOTE | 2024-04-19 17:49 | PC.NURSE ---
2:1 assist needed to stand/pivot off the side of the bed. assistance needed holding urinal as pt's scrotum is enlarged and he has difficulty navigating genitalia/urinating independently. urine obtained/sent to lab. pt repositioned back into bed. pt seemingly uncomfortable. turned/repositioned to comfort. remains on RA w/o difficulty. no sob/wob noted. respirations remain even/unlabored. plan of care ongoing. call rubin placed within reach.
[2024-04-19 17:56] VITALS: BP 110/57; PULSE 63; RESP 16; TEMP 36.8; O2SAT 94
[2024-04-19 19:45] VITALS: BP 84/48; PULSE 61; RESP 13; TEMP 37.8; O2SAT 98
--- NOTE | 2024-04-19 20:35 | ED_ITS ---
HPI - General Adult General Chief complaint: General Medical Stated complaint: r leg pain x weeks Time Seen by Provider: 04/19/24 19:55 Source: patient, family (daughter), RN notes reviewed and old records reviewed Mode of arrival: EMS Limitations: no limitations History of Present Illness ED Provider: Truman HPI narrative: 83-year-old male past medical history significant for fatty liver, anasarca, hypertension, CHF atrial fibrillation on Eliquis, status post pacemaker implantation, lymphedema presents for evaluation of chills. Patient is brought in by his daughter stating that prior to arrival the patient was ?shaking and felt really cold and we could not get him warm. ? The patient denies any new complaints or concerns. He reports that he has had swelling to his abdomen, scrotum and legs for a very long time. He reports pain to his right leg greater than left Both legs are weeping. He takes furosemide and metolazone which did not appear to be helping much The patient feels that due to his significant scrotal swelling this rubs against his right leg and causes pain to both areas Related Data Home Medications ?Medication ?Instructions ?Recorded ?Confirmed multivitamin 1 tab PO DAILY 05/12/21 04/14/24 calcium carbonate 600 mg-vitamin 1 tab PO DAILY 05/17/23 04/14/24 D3 5 mcg (200 unit) tablet cholecalciferol (vitamin D3) 25 25 mcg PO DAILY 05/17/23 04/14/24 mcg (1,000 unit) tablet ferrous sulfate 325 mg (65 mg 325 mg PO DAILY 07/11/23 04/14/24 iron) tablet acetaminophen 650 mg 650 mg PO Q8H 04/01/24 04/14/24 tablet,extended release (Tylenol 8 Hour) amiodarone 200 mg tablet 200 mg PO BID atrial fibrillation 04/01/24 04/14/24 furosemide 40 mg tablet 40 mg PO .evening 04/01/24 04/14/24 furosemide 80 mg tablet 80 mg PO .Morning 04/01/24 04/14/24 Previous Rx's ?Medication ?Instructions ?Recorded potassium chloride 20 mEq 40 meq (2 x 20 mEq) PO BID 90 days 10/18/23 tablet,extended release #360 tabs tamsulosin 0.4 mg capsule 0.4 mg PO BEDTIME 90 days #90 caps 11/19/23 apixaban 5 mg tablet (Eliquis) 5 mg PO BID #60 tabs 12/03/23 metolazone 2.5 mg tablet 2.5 mg PO DIRECTED #20 tabs 12/17/23 Allergies Allergy/AdvReac Type Severity Reaction Status Date / Time No Known Allergies Allergy Verified 04/19/24 16:48 Review of Systems 2 Constitutional: Constitutional: Denies body ache(s), Reports chills, Denies fever(s), Denies frequent falls and Denies headache(s) Eyes: Eyes: Denies blurry vision ENT: Denies headache(s) and Denies sore throat Cardiovascular: Cardiovascular: Denies chest pain, Reports pedal edema, Reports leg edema and Denies dyspnea Respiratory: Respiratory: Denies cough and Denies dyspnea Gastrointestinal: Gastrointestinal: Denies abdominal pain, Denies nausea and Denies vomiting Genitourinary: Genitourinary: Denies hematuria, Denies oliguria, Denies dysuria, Denies flank pain and Reports scrotal swelling Musculoskeletal: Musculoskeletal: Denies back pain Integumentary/Breasts: Skin/Breast: Reports erythema, Reports skin pain and Reports skin swelling Neurologic: Denies frequent falls and Denies headache(s) Psychiatric: Psychiatric: Denies anxiety PMFSH Past Medical History Medical History SHALONDA (obstructive sleep apnea) Cardiomyopathy Pulmonary hypertension Pacemaker Nonrheumatic tricuspid (valve) insufficiency Chronic right heart failure Current use of anticoagulant therapy Anticoagulated on Coumadin Right rib fracture CHF (congestive heart failure) Nocturnal hypoxemia Peripheral edema Annual physical exam Left tennis elbow Essential hypertension PAF (paroxysmal atrial fibrillation) History of hydrocele Nocturia Bladder outlet obstruction Bladder cancer Prostate cancer Hyperlipidemia HTN (hypertension) Normally functioning cardiac pacemaker present Varicose veins of bilateral lower extremities with other complications Surgical History History of hydrocelectomy Hx of varicose vein stripping Hx of subdural hematoma History of phacoemulsification of cataract of both eyes with intraocular lens implantation Hx of cardiac pacemaker Hx of colonoscopy Hx of parathyroidectomy Hx of cystoscopy Family History Family History Father Cancer Prostate cancer Mother Cancer, Onset Age: 85 Son No problems noted. Daughter No problems noted. Maternal Grandfather No problems noted. Maternal Grandmother No problems noted. Paternal Grandfather No problems noted. Paternal Grandmother No problems noted. Social History Social History Household Members: Spouse Housing: House Are you a primary care management associate to a significant other at home: No Do you presently have visiting nurse or other home services: No Alcohol intake: current Alcohol intake frequency: holidays/special occasions only Alcohol type: wine Patient Tobacco Use Status: Never used Tobacco Smoked in Last 30 Days: No e-Cigarette/Vaping Use: Never Used Use of substances other than those prescribed or required for medical reasons: No Advance Directives: Yes Advance Directives on File: Yes Advance Directives Date on File: 05/02/21 Do you have a plan to hurt others: No Plan service: No Current occupational status: retired Cognitive needs: No Hearing needs: No Vision needs: Yes Physical Exam ED Vital Signs: Vital Signs - 24 hr 04/19/24 16:45 04/19/24 17:56 04/19/24 19:45 Temperature 98.5 F 98.3 F 100.1 F Pulse Rate 74 63 61 Respiratory Rate 19 16 13 Blood Pressure 128/70 110/57 L 84/48 L Pulse Oximetry 98 94 98 Oxygen Delivery Method Room Air Room Air Room Air 04/19/24 22:03 04/19/24 23:20 04/20/24 00:00 Temperature 99.4 F 98.4 F Pulse Rate 81 72 60 Respiratory Rate 22 H 16 12 Blood Pressure 80/46 L 90/54 L 83/45 L Pulse Oximetry 96 96 Oxygen Delivery Method Room Air Room Air Room Air 04/20/24 01:40 04/20/24 02:16 04/20/24 02:42 Temperature 98.1 F Pulse Rate 60 60 66 Respiratory Rate 13 15 Blood Pressure 90/43 L 78/50 L 82/45 L Pulse Oximetry 97 97 Oxygen Delivery Method Room Air Room Air 04/20/24 02:54 04/20/24 02:55 04/20/24 02:59 Temperature 98.0 F Pulse Rate 60 60 60 Respiratory Rate 17 18 Blood Pressure 94/54 L 94/54 L 96/54 L Pulse Oximetry 94 94 Oxygen Delivery Method Room Air Room Air 04/20/24 03:05 Temperature Pulse Rate 60 Respiratory Rate 13 Blood Pressure 109/52 L Pulse Oximetry 94 Oxygen Delivery Method Room Air BMI result Body Mass Index 32.7 Const General: comfortable, no acute distress, alert and awake Nutritional Appearance: well nourished Orientation/consciousness: patient oriented x3 HENMT Head: Yes normocephalic and Yes atraumatic Eyes Eyelids: Yes eyelids normal Conjunctivae: conjunctivae normal Sclerae: sclerae normal Corneas: corneas normal Pupils: Equal, round and reactive pupils present EOM: EOMs intact bilaterally Neck Neck: Yes full ROM Resp Effort & Inspection: normal respiratory effort, able to speak in complete sentences, no audible wheezes and not labored Auscultation: clear to auscultation bilaterally Cardio Rate: regular rate Rhythm: regular rhythm GI Other: Abdomen is distended but nontender Inspection: Yes distended Palpation (GI): Soft to palpation, not firm, nontender, no guarding and not rigid Auscultation: normoactive bowel sounds Other: Markedly edematous scrotum with erythema and increased warmth to the right hemiscrotum compared to the left Skin General skin exam: elasticity normal Neuro General: patient oriented x3 Cranial nerves: Yes Equal, round and reactive pupils present and Yes Bilaterally intact EOM present Cognition (Neuro): normal cognition Extrem Other: 3+ bilateral pitting edema with clear drainage. Both legs appear to have chronic discoloration there is some slight increase in erythema to the right medial upper leg. No large wounds Course Reevaluation(s) Reevaluation #1: Patient's blood pressure is now 80/48, we will treat with IV fluids, normal saline 500 cc as the patient is markedly edematous. I will order vancomycin ceftriaxone as the patient symptoms are most likely related to scrotal cellulitis/leg cellulitis. Sepsis focused exam performed Time: 22:13 Reevaluation #2: Patient remains hypotensive, despite his marked peripheral edema, he has no evidence of pulmonary edema on x-ray, we will add and a L of lactated Ringer's Time: 00:07 Reevaluation #3: The patient will be admitted to the ICU. I discussed with Dr Segovia Time: 03:16 Medications Administered Generic Name Dose Route Start Last Admin Trade Name Freq PRN Reason Stop Dose Admin Norepinephrine Bitartrate 8 mg in 250 mls @ 0 mls/hr 04/20/24 02:15 04/20/24 02:55 Levophed IVCONT 0.05 mcg/kg/min .Q0M SUDARSHAN 9.14 mls/hr Titration Protocol Per Protocol Discontinued Medications Generic Name Dose Route Start Last Admin Trade Name Aye PRN Reason Stop Dose Admin Acetaminophen 650 mg 04/19/24 20:10 04/19/24 20:51 Acetaminophen 325 Mg Tablet PO 04/19/24 20:11 650 mg ONCE ONE Administration Ceftriaxone Sodium 1 gm 04/19/24 22:06 04/19/24 22:24 Ceftriaxone Sodium 1 Gm Vial IVPUSH 04/19/24 22:07 1 gm ONCE ONE Administration Vancomycin HCl 2,000 mg in 500 mls @ 250 mls/hr 04/19/24 22:15 04/20/24 01:15 Vancomycin/Ns IV 04/20/24 00:14 Infused ONCE ONE Infusion Sodium Chloride 500 mls @ 500 mls/hr 04/19/24 22:15 04/19/24 23:30 Ns IV 04/19/24 23:14 Infused .Q1H SUDARSHAN Infusion Albumin Human 100 mls @ 100 mls/hr 04/19/24 22:12 04/19/24 23:40 Kedbumin 25 % IV 04/19/24 23:11 Infused ONCE ONE Infusion Lactated Ringer's 1,000 mls @ 999 mls/hr 04/20/24 00:15 04/20/24 00:42 Lr IV 04/20/24 01:15 999 mls/hr .Q1H1M SUDARSHAN Administration Medical Decision Making Medical Decision Making MDM Narrative: 83-year-old male with complicated past medical history as detailed above presents for evaluation of shaking chills. He does have some mild right leg pain when compared to his left but both sides are significantly edematous. He likely has a combination of CHF/anasarca. He has a temp of a 100.1? and he was hypotensive to 84/48 at the lowest. I am hesitant to start IV fluids as the patient has significant peripheral edema. We will get a chest x-ray to evaluate for pleural effusions and pulmonary edema. The patient has no cough or shortness of breath so I think pneumonia is less likely. His abdomen is distended but he does have significant anasarca, he has no abdominal tenderness to suggest an SBP. At this time, the most likely diagnosis is cellulitis of the scrotum/upper leg. We will get a CT scan of the abdomen pelvis due to the distention Differential Diagnosis Differential Diagnoses: The differential diagnosis associated with the presentation includes Cellulitis Scrotal cellulitis Anasarca CHF DVT SBP less likely Admission/Observation Consideration of admission/observation: Escalation of care including admission/observation considered Consult Healthcare Provider Management of the patient was discussed with: [employer] Officer (IC provider and Urology) Lab Data MDM Lab Attestation statement: I reviewed the patient's lab results. There is no leukocytosis. The patient does have a chronic normocytic anemia that is consistent with his baseline. He does have a left shift which could indicate some sort of infection. The patient's PT is elevated to 20.0 with an INR of 1.7. He is anticoagulated. The patient's sodium is slightly low at 134 which is likely related to his furosemide and metolazone. He has chronic kidney disease it is actually slightly improved when compared to his baseline. His BUN of 57 and creatinine of 1.99 year slightly improved compared to baseline. Patient has a mild transaminitis which is likely related to his fatty liver. His total bilirubin is 2.2 which is likely related to anasarca and less likely obstructive biliary disease as the patient has no abdominal pain, tenderness or nausea/vomiting. 04/19/24 16:59 04/19/24 16:59 Labs: Lab Results 04/19/24 04/19/24 04/19/24 Range/Units 16:58 16:59 17:31 WBC 6.9 (4.8-10.8) X10*3/uL RBC 4.05 L (4.60-5.80) X10*6/uL Hgb 12.8 L (14.0-18.0) g/dl Hct 38.3 L (42.0-52.0) % MCV 94.6 (80.0-98.0) fL MCH 31.6 (27.0-33.0) pg MCHC 33.4 (31.0-36.0) g/dl RDW 15.4 (11.0-16.0) % Plt Count 174 (160-400) X10*3/uL MPV 9.6 (9.4-12.4) fL Immature Gran % (Auto) 0.3 (0.0-0.4) % Neut % (Auto) 89.1 H (45-73) % Lymph % (Auto) 5.2 L (20-40) % [place] % (Auto) 5.1 (2-11) % Eos % (Auto) 0.0 (0-4) % Baso % (Auto) 0.3 (0-2) % Lymph # (Auto) 0.4 L (1.2-4.9) X10*3/uL [place] # (Auto) 0.4 (0.1-1.2) X10*3/uL Eos # (Auto) 0.0 (0.0-0.4) X10*3/uL Baso # (Auto) 0.0 (0.0-0.2) X10*3/uL Abs Immat Gran (auto) 0.02 (0.00-0.03) X10*3/uL Absolute Neuts (auto) 6.1 (2.0-8.3) x10*3/uL Absolute Nucleated RBC 0.000 (0.0-0.012) X10*3/uL Nucleated RBC % (auto) 0.0 (0.0-0.2) /100WBC ESR 31 H (0-15) MM/HR PT 20.0 H (10.9-12.4) SEC INR 1.7 H (0.9-1.1) APTT 34.3 (26.0-36.8) SEC Sodium 134 L (135-145) mmol/L Potassium 4.5 (3.3-5.1) mmol/L Chloride 97 (96-108) mmol/L Carbon Dioxide 26 (22-29) mmol/L Anion Gap 16 (12-20) BUN 57 H (9-16) mg/dL Creatinine 1.99 H (0.5-1.4) mg/dL Estim Creat Clear Calc 30.7 Estimated GFR 32 Random Glucose 114 (60-115) mg/dL Lactic Acid (0.5-2.0) mmol/L Calcium 9.2 D (8.4-10.2) mg/dL Total Bilirubin 2.2 H (0.0-1.0) mg/dL AST 38 H (5-37) U/L ALT 41 H (0-40) U/L Alkaline Phosphatase 140 H (39-117) U/L C-Reactive Protein 1.40 H (< or = 0.50) mg/dL B-Natriuretic Peptide 784 H (<100) pg/mL Total Protein 7.2 (6.5-8.0) g/dL Albumin 3.7 (3.5-5.0) g/dL Urine Color Yellow Urine Appearance Clear Urine pH 5.5 (5.0-9.0) Ur Specific [place] 1.015 (1.005-1.025) Urine Protein Negative (Neg-Trace) mg/dL Urine Glucose (UA) Negative (Negative) mg/dL Urine Ketones Negative (Negative) mg/dL Urine Blood Negative (Negative) Urine Nitrite Negative (Negative) Ur Leukocyte Esterase Negative (Negative) Urine RBC 0-2 (0-2) /HPF Urine WBC 0-5 (0-5) /HPF Ur Squamous Epith Cells 0-2 (0-2) /HPF Urine Bacteria None Seen (None Seen) Hyaline Casts 0-2 (0-2) /LPF Influenza Type A (PCR) (Negative) Influenza Type B (PCR) (Negative) RSV RNA Qual (PCR) (Negative) SARS-CoV-2 RNA (RT-PCR) (Negative) 04/19/24 04/19/24 Range/Units 20:47 22:00 WBC (4.8-10.8) X10*3/uL RBC (4.60-5.80) X10*6/uL Hgb (14.0-18.0) g/dl Hct (42.0-52.0) % MCV (80.0-98.0) fL MCH (27.0-33.0) pg MCHC (31.0-36.0) g/dl RDW (11.0-16.0) % Plt Count (160-400) X10*3/uL MPV (9.4-12.4) fL Immature Gran % (Auto) (0.0-0.4) % Neut % (Auto) (45-73) % Lymph % (Auto) (20-40) % [place] % (Auto) (2-11) % Eos % (Auto) (0-4) % Baso % (Auto) (0-2) % Lymph # (Auto) (1.2-4.9) X10*3/uL [place] # (Auto) (0.1-1.2) X10*3/uL Eos # (Auto) (0.0-0.4) X10*3/uL Baso # (Auto) (0.0-0.2) X10*3/uL Abs Immat Gran (auto) (0.00-0.03) X10*3/uL Absolute Neuts (auto) (2.0-8.3) x10*3/uL Absolute Nucleated RBC (0.0-0.012) X10*3/uL Nucleated RBC % (auto) (0.0-0.2) /100WBC ESR (0-15) MM/HR PT (10.9-12.4) SEC INR (0.9-1.1) APTT (26.0-36.8) SEC Sodium (135-145) mmol/L Potassium (3.3-5.1) mmol/L Chloride (96-108) mmol/L Carbon Dioxide (22-29) mmol/L Anion Gap (12-20) BUN (9-16) mg/dL Creatinine (0.5-1.4) mg/dL Estim Creat Clear Calc Estimated GFR Random Glucose (60-115) mg/dL Lactic Acid 1.9 (0.5-2.0) mmol/L Calcium (8.4-10.2) mg/dL Total Bilirubin (0.0-1.0) mg/dL AST (5-37) U/L ALT (0-40) U/L Alkaline Phosphatase (39-117) U/L C-Reactive Protein (< or = 0.50) mg/dL B-Natriuretic Peptide (<100) pg/mL Total Protein (6.5-8.0) g/dL Albumin (3.5-5.0) g/dL Urine Color Urine Appearance Urine pH (5.0-9.0) Ur Specific [place] (1.005-1.025) Urine Protein (Neg-Trace) mg/dL Urine Glucose (UA) (Negative) mg/dL Urine Ketones (Negative) mg/dL Urine Blood (Negative) Urine Nitrite (Negative) Ur Leukocyte Esterase (Negative) Urine RBC (0-2) /HPF Urine WBC (0-5) /HPF Ur Squamous Epith Cells (0-2) /HPF Urine Bacteria (None Seen) Hyaline Casts (0-2) /LPF Influenza Type A (PCR) NEGATIVE (Negative) Influenza Type B (PCR) NEGATIVE (Negative) RSV RNA Qual (PCR) NEGATIVE (Negative) SARS-CoV-2 RNA (RT-PCR) NEGATIVE (Negative) Critical Care Time Critical Care Time Critical Care Time: Yes Total Critical Care Time: 60 Attestation: 83-year-old male presents for evaluation of chills. He was found to have a temp of a 100.1?. His only source of infection turned out to be cellulitis of the right leg and scrotum. He became septic with the blood pressure below 90 systolic x2, he was treated with IV fluid hydration although due to history of significant CHF with anasarca he was not given a full 30 cc/kilogram bolus. Please see sepsis occlusion bolus. Multiple consultations were placed, the patient is given broad-spectrum antibiotics Discharge Plan Discharge Clinical Impression: Cellulitis, scrotum Patient Disposition: Admitted As Inpatient Print Language: Cymro Sepsis Bolus Exclusion Sepsis Bolus Exclusion CHF/Renal Failure This patient met severe sepsis criteria due to the following condition(s):: H ypotension In my clinical judgement the administration of 30 ml/kg of crystalloid would be detrimental to this patient due to the patient's following conditions:: Concern for fluid overload Replace the 30 mls/kg with (Zero amount not acceptable and all fluids for severe sepsis must be given at GREATER than 125 mls/hr) Crystalloids amount given in mls: (rate must be at least 150cc/hr): 1,500 Colloids amount given in mls:: 0
[2024-04-19] MEDS: Acetaminophen 325 MG TABLET 650 MG PO (20:51)
[2024-04-19 21:07] LABS: Lactic Acid 1.9 mmol/L (0.5-2.0)
[2024-04-19 22:03] VITALS: BP 80/46; PULSE 81; RESP 22; TEMP 37.4
[2024-04-19] MEDS: cefTRIAXone sodium 1 GM VIAL IVPUSH (22:24)
[2024-04-19] MEDS: 0.9 % Sodium Chloride 500 ML IV (22:25)
[2024-04-19] MEDS: Albumin Human 25 % 100 ML IV (22:39)
[2024-04-19 22:49] LABS: Influenza A PCR NEGATIVE (Negative); Influenza B PCR NEGATIVE (Negative); Resp Syncy Virus RNA Qual PCR NEGATIVE (Negative); SARS COV2 PCR INHOUSE NEGATIVE (Negative)
[2024-04-19] MEDS: vancomycin/NS 2,000 MG/500 ML PLAST..BAG 250 MG IV (22:59)
[2024-04-19 23:20] VITALS: BP 90/54; PULSE 72; RESP 16; O2SAT 96
[2024-04-20] VITALS (37 sets, daily range): BP systolic 78–117; BP diastolic 43–78; PULSE 60–126; RESP 12–20; TEMP 36.4–36.9; O2SAT 92–97; BMI 32.6
--- NOTE | 2024-04-20 | ECG_ITS ---
Test Reason : Tachyarrythmia Blood Pressure : / mmHG Vent. Rate : 125 BPM Atrial Rate : 125 BPM P-R Int : 000 ms QRS Dur : 164 ms QT Int : 438 ms P-R-T Axes : 000 265 091 degrees QTc Int : 632 ms Ventricular-paced rhythm ?pacemaker mediated tachycardia. Abnormal ECG When compared with ECG of 11-JUL-2023 11:32, Vent. rate has increased BY 56 BPM Referred By: Bethany Segovia Electronically Signed By:Tomas Scherer
[2024-04-20] MEDS: Lactated Ringers 1,000 ML 999 ML IV (00:42)
--- NOTE | 2024-04-20 02:23 | PC.NURSE ---
Pt continues to rest in the stretcher, easily arousable to light touch/movement and/or verbal stimuli at which point he is A&Ox4 and offers no complaints stating I feel great . The patient remains hypotensive despite previous fluid administration (500ml bolus, 25g albumin), BPs were trending upward with systolics in the 90s however now the patient's systolic BP is in the high 70s (confirmed via manual BP). Pt's LR at 100ml/hr infusing without s/s of complications noted to the insertion site. The pt is aware of plan of beginning pressors to help regulate his BP and offers no questions. RN awaiting pharmacy verification and pressors will be initiated
[2024-04-20] MEDS: Norepinephrine Bitartrate/D5W 8 MG/250 ML PLAST..BAG 9.14 MG IVCONT (02:42)
[2024-04-20] MEDS: Clindamycin Phosphate/D5W 600 MG/50 ML PIGGYBACK 100 MG IV ×4 (04:33→21:27)
[2024-04-20] MEDS: Piperacillin Sodium/Tazobactam 3.375 GM in 0.9 % Sodium Chloride 50 ML IV ×4 (04:37→23:54)
--- NOTE | 2024-04-20 04:37 | P.HPCC_ITS ---
History of Present Illness Date of Service: 04/20/24 Attending physician on admission: Bethany Segovia Chief Complaint: Chills Mr Funes is a very pleasant 83-year-old male past medical history significant for fatty liver, anasarca, hypertension, CHF, atrial fibrillation on Eliquis, s/p pacemaker implantation, Kidney disease stage 3, lymphedema, SHALONDA who presented to the ER with complaint of chills and fever. He reports pain in the right leg and scrotum. Both legs are weeping. The abdomen, scrotum and legs are chronically swollen. He reports weakness in both legs due to the swelling. He denies any other complaints or concerns. On arrival to the ER, his BP was 128/70, heart rate 74, respiratory rate 19, O2 sat 98% on room air. He was afebrile. Laboratory data significant for no leukocytosis but with a left shift. ? Hemoglobin 12.8, hematocrit 38.3, ESR 31, PT 20.0, INR 1.7, sodium 134, BUN 57, creatinine 1.99, lactic acid 1.9, total bilirubin 2.2, AST 38, ALT 41, alk-phos 140, CRP 1.40, BNP 784. Urinalysis negative. Influenza A&B, RSV, COVID-19 negative. Imaging:?? Chest x-ray unremarkable. CT abd/pelvis concerning for extensive edema within the scrotum.? No bowel obstruction or acute inflammation. BLE? venous duplex ultrasound negative for DVT. ? ED course:? while in the emergency room the patient received ceftriaxone 1 g, vancomycin 2 g, albumin, acetaminophen. He became hypotensive and was given a total of 1500 mL IV fluids. He remained hypotensive despite fluid administration and was started on a Levophed drip.??? Review of Systems 2 Review of Systems: Yes all other systems are reviewed and are negative Constitutional: Constitutional: Reports no additional constitutional complaints and Denies headache(s) Eyes: Eyes: Denies blurry vision ENT: Reports Normal hearing present, Reports dry mouth, Denies headache(s), Denies hoarseness, Denies nasal congestion, Denies post nasal drip, Denies sinus pain and Denies sinus pressure Cardiovascular: Cardiovascular: Denies chest pain, Denies Epigastric Pain, Denies epigastric discomfort and Denies dyspnea Respiratory: Respiratory: Denies dyspnea Gastrointestinal: Gastrointestinal: Denies abdominal pain, Denies diarrhea, Denies nausea and Denies vomiting Genitourinary: Genitourinary: Denies hematuria, Denies difficulty urinating, Denies dysuria, Reports scrotal swelling and Denies urinary frequency Musculoskeletal: Musculoskeletal: Reports muscle weakness (Bilateral lower extremities) Integumentary/Breasts: Skin/Breast: Reports erythema and Reports skin swelling Neurologic: Reports Normal hearing present and Denies headache(s) [facility] Past Medical History Medical History SHALONDA (obstructive sleep apnea) Cardiomyopathy Pulmonary hypertension Pacemaker Nonrheumatic tricuspid (valve) insufficiency Chronic right heart failure Current use of anticoagulant therapy Anticoagulated on Coumadin Right rib fracture CHF (congestive heart failure) Nocturnal hypoxemia Peripheral edema Annual physical exam Left tennis elbow Essential hypertension PAF (paroxysmal atrial fibrillation) History of hydrocele Nocturia Bladder outlet obstruction Bladder cancer Prostate cancer Hyperlipidemia HTN (hypertension) Normally functioning cardiac pacemaker present Varicose veins of bilateral lower extremities with other complications Family History Family History Father Cancer Prostate cancer Mother Cancer, Onset Age: 85 Son No problems noted. Daughter No problems noted. Maternal Grandfather No problems noted. Maternal Grandmother No problems noted. Paternal Grandfather No problems noted. Paternal Grandmother No problems noted. Surgical History Surgical History History of hydrocelectomy Hx of varicose vein stripping Hx of subdural hematoma History of phacoemulsification of cataract of both eyes with intraocular lens implantation Hx of cardiac pacemaker Hx of colonoscopy Hx of parathyroidectomy Hx of cystoscopy Social History Social History Household Members: Spouse Housing: House Are you a primary healthcare science specialist to a significant other at home: No Do you presently have visiting nurse or other home services: No Alcohol intake: current Alcohol intake frequency: holidays/special occasions only Alcohol type: wine Patient Tobacco Use Status: Never used Tobacco Smoked in Last 30 Days: No e-Cigarette/Vaping Use: Never Used Use of substances other than those prescribed or required for medical reasons: No Have you been hit, kicked, punched, or otherwise hurt by someone within the past year? If so, by whom?: No Do you feel safe in your current relationship?: Yes Is there a partner from a previous relationship who is making you feel unsafe now?: No Are you made to feel afraid or neglected: No Advance Directives: Yes Advance Directives on File: Yes Advance Directives Date on File: 05/02/21 Do you have a plan to hurt others: No Plan Recently lost weight without trying: No How much weight loss: Unsure Eating poorly because of decreased appetite: No Nutrition screen score: 2 Nutrition Risks: No Nutritional Risk Poor oral hygiene: No service: No Current occupational status: retired Cognitive needs: No Hearing needs: No Vision needs: Yes Meds Allergies Allergy/AdvReac Type Severity Reaction Status Date / Time No Known Allergies Allergy Verified 04/19/24 16:48 Active Medications: Current Medications Heparin Sodium (Porcine) (Heparin Sodium,Porcine 5,000 Unit/Ml Vial) 5,000 unit SUBCUT Q12H SUDARSHAN Norepinephrine Bitartrate (Levophed) 8 mg in 250 mls @ 0 mls/hr IVCONT .Q0M COUNT INCLUDES THE [facility]; Protocol Last Titration: 04/20/24 02:55 Dose: 0.05 mcg/kg/min, 9.14 mls/hr Clindamycin Phosphate (Cleocin) 600 mg in 50 mls @ 100 mls/hr IV Q6H COUNT INCLUDES THE [facility] Last Admin: 04/20/24 04:33 Dose: 100 mls/hr Piperacillin Sod/Tazobactam (Sod 3.375 gm/ Sodium Chloride) 50 mls @ 100 mls/hr IV Q8H COUNT INCLUDES THE [facility] Pharmacy Consult (Consult Rx Vancomycin Dosing) 1 each MISCELLANE DAILY PRN PRN Reason: Consult order Home Medications ?Medication ?Instructions ?Recorded ?Confirmed ?Last Taken ?Type multivitamin 1 tab PO DAILY 05/12/21 04/14/24 Unknown History calcium carbonate 600 mg-vitamin 1 tab PO DAILY 05/17/23 04/14/24 Unknown History D3 5 mcg (200 unit) tablet cholecalciferol (vitamin D3) 25 25 mcg PO DAILY 05/17/23 04/14/24 Unknown History mcg (1,000 unit) tablet ferrous sulfate 325 mg (65 mg 325 mg PO DAILY 07/11/23 04/14/24 Unknown History iron) tablet acetaminophen 650 mg 650 mg PO Q8H 04/01/24 04/14/24 Unknown History tablet,extended release (Tylenol 8 Hour) amiodarone 200 mg tablet 200 mg PO BID atrial fibrillation 04/01/24 04/14/24 Unknown History furosemide 40 mg tablet 40 mg PO .evening 04/01/24 04/14/24 Unknown History furosemide 80 mg tablet 80 mg PO .Morning 04/01/24 04/14/24 Unknown History Physical Exam 2 Vital Signs: Vital Signs: Last Vital Signs Temp 98.0 F 04/20/24 02:54 Pulse 60 04/20/24 03:05 Resp 13 04/20/24 03:05 BP 109/52 L 04/20/24 03:05 Pulse Ox 94 04/20/24 03:05 O2 Del Method Room Air 04/20/24 03:05 BMI result Body Mass Index 32.7 Const: General: no acute distress and alert Orientation/consciousness: p atient oriented x3 (answering appropriately.) HEENT: Head: Yes normocephalic and Yes atraumatic General nose exam: Normal external nose present (Nares patent, septum midline, sinuses nontender bilaterally.) Mouth: Normal oral and palatal mucosa present (No thrush, tongue in midline, mucosa moist.) Neck: Neck: Yes supple (no thyromegaly, trachea midline.) Carotids: normal carotid upstroke Resp: Effort & Inspection: normal respiratory effort Auscultation: clear to auscultation bilaterally (normal work of breathing, no accessory muscle use) Cardio: Jugular venous distension: no JVD Rate: regular rate Rhythm: r egular rhythm Heart sounds: no gallops, no murmurs and no rubs Peripheral pulses: Peripheral pulses 2+ throughout GI: Palpation (GI): Soft to palpation (nondistended.) and nontender A uscultation: normoactive bowel sounds : Male General Exam: Yes edema (scrotum R>L) and Yes tenderness Penis: e dematous Scrotum: edematous, erythematous and scrotal swelling Neuro: General: patient oriented x3 (answering appropriately.) Cranial nerves: Yes CN's II-XII intact bilaterally and Yes Normal hearing present C ognition (Neuro): normal cognition Extrem: Right lower extremity: lower leg Details: erythema and non-pitting edema Details: 3+ (weeping serous drainage) Left lower extremity: lower leg Details: erythema and non-pitting edema Details: 3+ Psych: Appearance: grossly normal Mental Status: mental status grossly normal Speech and movement: Normal speech and movement present Affect: n ormal affect Attitude: cooperative Results Labs 04/19/24 16:59 04/19/24 16:59 Labs: Laboratory Results - last 24 hr 04/19/24 04/19/24 04/19/24 16:58 16:59 17:31 MCV 94.6 MCH 31.6 MCHC 33.4 RDW 15.4 Plt Count 174 MPV 9.6 Immature Gran % (Auto) 0.3 Neut % (Auto) 89.1 H Lymph % (Auto) 5.[address] [place] % (Auto) 5.1 Eos % (Auto) 0.0 Baso % (Auto) 0.3 Lymph # (Auto) 0.[address] [place] # (Auto) 0.4 Eos # (Auto) 0.0 Baso # (Auto) 0.0 Abs Immat Gran (auto) 0.02 Absolute Neuts (auto) 6.1 Absolute Nucleated RBC 0.000 Nucleated RBC % (auto) 0.0 ESR 31 H PT 20.0 H INR 1.7 H APTT 34.3 Anion Gap 16 Estim Creat Clear Calc 30.7 Estimated GFR 32 Random Glucose 114 Lactic Acid Calcium 9.2 D Total Bilirubin 2.2 H AST 38 H ALT 41 H Alkaline Phosphatase 140 H C-Reactive Protein 1.40 H B-Natriuretic Peptide 784 H Total Protein 7.2 Albumin 3.7 Urine Color Yellow Urine Appearance Clear Urine pH 5.5 Ur Specific [place] 1.015 Urine Protein Negative Urine Glucose (UA) Negative Urine Ketones Negative Urine Blood Negative Urine Nitrite Negative Ur Leukocyte Esterase Negative Urine RBC 0-2 Urine WBC 0-5 Ur Squamous Epith Cells 0-2 Urine Bacteria None Seen Hyaline Casts 0-2 Influenza Type A (PCR) Influenza Type B (PCR) RSV RNA Qual (PCR) SARS-CoV-2 RNA (RT-PCR) 04/19/24 04/19/24 20:47 22:00 MCV MCH MCHC RDW Plt Count MPV Immature Gran % (Auto) Neut % (Auto) Lymph % (Auto) [place] % (Auto) Eos % (Auto) Baso % (Auto) Lymph # (Auto) [place] # (Auto) Eos # (Auto) Baso # (Auto) Abs Immat Gran (auto) Absolute Neuts (auto) Absolute Nucleated RBC Nucleated RBC % (auto) ESR PT INR APTT Anion Gap Estim Creat Clear Calc Estimated GFR Random Glucose Lactic Acid 1.9 Calcium Total Bilirubin AST ALT Alkaline Phosphatase C-Reactive Protein B-Natriuretic Peptide Total Protein Albumin Urine Color Urine Appearance Urine pH Ur Specific [place] Urine Protein Urine Glucose (UA) Urine Ketones Urine Blood Urine Nitrite Ur Leukocyte Esterase Urine RBC Urine WBC Ur Squamous Epith Cells Urine Bacteria Hyaline Casts Influenza Type A (PCR) NEGATIVE Influenza Type B (PCR) NEGATIVE RSV RNA Qual (PCR) NEGATIVE SARS-CoV-2 RNA (RT-PCR) NEGATIVE ECG Pacemaker function: normal pacer function Imaging Radiologist's Impressions: Impressions Abdomen/Pelvis CT 04/19/24 20:38 IMPRESSION: 1. No bowel obstruction on the current study. No acute inflammatory changes. 2. Extensive edematous changes noted within the visualized scrotal sac. Correlate with physical exam. 3. Progressive subplural nodular density right lower lobe. Short interval follow-up recommended. According to the UPDATED 2017 Fleischner Society recommendations, the advised follow-up imaging for a single solid nodule measuring 8 mm or greater is: 4. Consider CT, PET/CT, or tissue sampling at 3 months. 5. Incidental findings as above. Fleischner guidelines were followed. Electronically signed by: Alfredo Webster MD 04/19/2024 09:34 PM EST RP Chest X-Ray 04/19/24 20:40 IMPRESSION: Unremarkable examination. No infiltrate. Electronically signed by: Alfredo Webster MD 04/19/2024 09:29 PM EST RP Venous Duplex 04/19/24 21:00 IMPRESSION: No evidence of deep venous thrombosis involving the bilateral lower extremities. Electronically signed by: Carli Baez DO 04/19/2024 09:59 PM EST RP Assessment and Plan (1) Sepsis: Qualifiers: Sepsis type: sepsis due to unspecified organism Sepsis acute organ dysfunction status: unspecified Qualified Code(s): A41.9 - Sepsis, unspecified organism Status: Acute (2) Cellulitis, scrotum: Status: Acute (3) Anasarca: Status: Acute (4) Bilateral lower extremity edema: Status: Acute (5) Chronic right heart failure: Status: Acute (6) Persistent atrial fibrillation: Status: Acute (7) Chronic kidney disease, stage 3: Qualifiers: Chronic kidney disease stage 3 subtype: stage 3b (GFR 30-44) Qualified Code(s): N18.32 - Chronic kidney disease, stage 3b Status: Acute (8) Fatty liver: Status: Acute (9) Nocturnal hypoxemia: Status: Acute Plan 83-year-old male past medical history significant for fatty liver, anasarca, hypertension, CHF, atrial fibrillation on Eliquis, status post pacemaker implantation, Kidney disease stage 3, lymphedema, SHALONDA admitted with cellulitis c/b sepsis. Neuro: No acute issues Cardiac: Sepsis. Febrile, T-max 100.1. Normal WBC with left shift, hypotension. Scrotal/leg cellulitis likely source. Fluid resuscitated with 1.5 L in ED; concern for? fluid volume overload due to CHF. Levophed. Wean as tolerated. Pulmonary: No acute issues.? Renal:? Underlying CKD 3.?Scrotal edema. Hyponatremia likely due to diuretics. Nephrology care appreciated. Endo: ??No acute issues.? GI: ??No acute issues. ID: Sepsis likely due to scrotum/leg cellulitis. Concern for fluid volume overload; resuscitated with 1500ml IVF. Continue vancomycin. Zosyn, Clindamycin added. Cultures pending.? Heme/Onc: ??Chronic anemia, at baseline. Psych: No acute issues. Prophylaxis: pneumatic hoses, Heparin Diet:? Clear? liquid Patient's care was discussed in detail with Dr. Segovia.? She is aware of all the above as well as the plan of care for this patient. Total time managing care of this patient today: 60 minutes.
[2024-04-20] MEDS: Heparin Sodium,Porcine 5,000 UNIT/ML VIAL 5000 UNIT SUBCUT (04:44)
[2024-04-20 05:51] LABS: MANUAL DIFF FLAG NO
[2024-04-20 06:09] LABS: Basophils Percent Auto 0.4 % (0-2); Hematocrit 36.5 % (42.0-52.0); Hemoglobin 11.8 g/dl (14.0-18.0); Imm Gran Abs Auto 0.03 X10*3/uL (0.00-0.03); Imm Gran Pct Auto 0.4 % (0.0-0.4); Lymphocytes Absolute Auto 0.5 X10*3/uL (1.2-4.9); Lymphocytes Percent Auto 6.2 % (20-40); Mean Corpuscular HGB Conc 32.3 g/dl (31.0-36.0); Mean Corpuscular Hemoglobin 31.4 pg (27.0-33.0); Mean Corpuscular Volume 97.1 fL (80.0-98.0); Mean Platelet Volume 10.1 fL (9.4-12.4); Monocytes Absolute Auto 0.3 X10*3/uL (0.1-1.2); Monocytes Percent Auto 4.2 % (2-11); Neutrophils Absolute Auto 6.7 x10*3/uL (2.0-8.3); Neutrophils Percent Auto 88.8 % (45-73); Platelet Count 153 X10*3/uL (160-400); Red Blood Count 3.76 X10*6/uL (4.60-5.80); Red Cell Distribution Width 15.9 % (11.0-16.0); White Blood Count 7.6 X10*3/uL (4.8-10.8)
[2024-04-20 06:15] LABS: Albumin Level 3.3 g/dL (3.5-5.0); Anion Gap 19 (12-20); Blood Urea Nitrogen 61 mg/dL (9-16); Calcium 8.8 mg/dL (8.4-10.2); Carbon Dioxide 19 mmol/L (22-29); Chloride 101 mmol/L (96-108); Estimated Glomerular Filt Rate 29; Glucose Random 132 mg/dL (60-115); Magnesium 2.3 mg/dL (1.6-2.6); Phosphorus 3.9 mg/dL (2.7-4.5); Potassium 4.5 mmol/L (3.3-5.1); Sodium 134 mmol/L (135-145)
--- NOTE | 2024-04-20 09:47 | PHA.PROG ---
Admission Date/Time: April 20, 2024 03:19 Indication: SKIN AND SKIN STRUCTURE Weight in k.4 kg Adjusted body weight in Kg: [place] body weight in Kg: Obesity Dosing Indication % IBW: Serum Creatinine - Last 168 Hours 04/19/24 04/20/24 16:59 05:25 Creatinine 1.99 H 2.18 H Estimated CrCl and GFR - Last 168 Hours 04/19/24 04/20/24 16:59 05:25 Estim Creat Clear Calc 30.7 28.0 Estimated GFR 32 29 Vancomycin Loading Dose: 1999 Current Vancomycin Dosing Regimen: 750 MG Q 24 HOURS Vancomycin Monitoring using AUC goal of 400 - 600 range with trough as surrogate marker: Date and Time for next Vancomycin Level to be drawn: 04/21/241999 Pharmacist Comments on Vancomycin Plan: WILL CHECK A LEVEL AFTER 2 DOSES FOR SAFETY, PREDICTED AUC 456 Vancomycin dosing will take advantage of [employer] as a clinical decision support tool that uses Bayesian modeling to calculate individual patient's pharmacokinetic parameters and forecast the patient's drug concentration time course with the target goal AUC 24 range of 400 - 600 mg/L/hr.
[2024-04-20] MEDS: Furosemide 20 MG/2 ML VIAL IVPUSH ×2 (09:54→17:47)
--- NOTE | 2024-04-20 09:58 | PHA.MEDREC ---
Addendum entered by Loretta Gavin RPh 04/20/24 10:07: Reviewed by [facility] Original Note: Pharmacy Consult ? Medication Reconciliation Pharmacy has completed the medication reconciliation. Med list was in patients chart provided by his (patient said his manages his medications). I called her to confirm metolazone, amiodarone, lasix, and eliquis dosing.
--- NOTE | 2024-04-20 11:57 | PM.UROCN ---
History of Present Illness Consult details Consult date: 04/20/24 Narrative: 83-year-old male past medical history significant for fatty liver, anasarca, hypertension, CHF atrial fibrillation on Eliquis, status post pacemaker implantation, lymphedema, followed by Dr. Tavera for bladder cancer, prostate cancer. PSA 03/26/24--<0.10 ng/mL. Last seen in Urology office 07/2023, Surveillance cystoscopy negative for recurrent lesions. He states he has had an oozing from his legs, presented due to fever and chills. Review of Systems Review of Systems: Yes all other systems are reviewed and are negative Constitutional: Constitutional: Reports no additional constitutional complaints Eyes: Eyes: Reports no additional eye complaints ENT: Reports system reviewed and no additional complaints, except as documented Cardiovascular: Cardiovascular: Reports no additional cardiovascular complaints Respiratory: Respiratory: Reports no additional respiratory complaints Gastrointestinal: Gastrointestinal: Reports no additional gastrointestinal complaints Genitourinary: Genitourinary: Reports as per HPI Musculoskeletal: Musculoskeletal: Reports no additional musculoskeletal complaints Integumentary/Breasts: Skin/Breast: Reports system reviewed and no additional complaints, except as docu Neurologic: Reports system reviewed and no additional complaints, except as documented Psychiatric: Psychiatric: Reports no additional psychiatric complaints Endocrine: Endocrine: Reports no additional endocrine complaints Hematologic/Lymphatic: Hematologic/Lymphatic: Reports no additional hematologic/lymphatic complaints Allergic/Immunologic: Allergic/Immunologic: Reports no additional allergic/immunologic complaints [facility] Past Medical History Medical History SHALONDA (obstructive sleep apnea) Cardiomyopathy Pulmonary hypertension Pacemaker Nonrheumatic tricuspid (valve) insufficiency Chronic right heart failure Current use of anticoagulant therapy Anticoagulated on Coumadin Right rib fracture CHF (congestive heart failure) Nocturnal hypoxemia Peripheral edema Annual physical exam Left tennis elbow Essential hypertension PAF (paroxysmal atrial fibrillation) History of hydrocele Nocturia Bladder outlet obstruction Bladder cancer Prostate cancer Hyperlipidemia HTN (hypertension) Normally functioning cardiac pacemaker present Varicose veins of bilateral lower extremities with other complications Family History Family History Father Cancer Prostate cancer Mother Cancer, Onset Age: 85 Son No problems noted. Daughter No problems noted. Maternal Grandfather No problems noted. Maternal Grandmother No problems noted. Paternal Grandfather No problems noted. Paternal Grandmother No problems noted. Surgical History Surgical History History of hydrocelectomy Hx of varicose vein stripping Hx of subdural hematoma History of phacoemulsification of cataract of both eyes with intraocular lens implantation Hx of cardiac pacemaker Hx of colonoscopy Hx of parathyroidectomy Hx of cystoscopy Social History Social History Household Members: Spouse Housing: House Are you a primary care asst to a significant other at home: No Do you presently have visiting nurse or other home services: No Alcohol intake: current Alcohol intake frequency: holidays/special occasions only Alcohol type: wine Patient Tobacco Use Status: Never used Tobacco e-Cigarette/Vaping Use: Never Used Advance Directives Date on File: 05/02/21 service: No Current occupational status: retired Cognitive needs: No Hearing needs: No Vision needs: Yes Meds Allergies Allergy/AdvReac Type Severity Reaction Status Date / Time No Known Allergies Allergy Verified 05/02/24 09:55 Active Medications: Current Medications Furosemide (Furosemide 20 Mg/2 Ml Vial) 20 mg IVPUSH BID@0900,1800 [facility]; Protocol Last Admin: 04/20/24 09:54 Dose: 20 mg Heparin Sodium (Porcine) (Heparin Sodium,Porcine 5,000 Unit/Ml Vial) 5,000 unit SUBCUT Q12H [facility] Last Admin: 04/20/24 04:44 Dose: 5,000 unit Norepinephrine Bitartrate (Levophed) 8 mg in 250 mls @ 0 mls/hr IVCONT .Q0M [facility]; Protocol Last Titration: 04/20/24 09:05 Dose: 0 mcg/kg/min, 0 mls/hr Clindamycin Phosphate (Cleocin) 600 mg in 50 mls @ 100 mls/hr IV Q6H [facility] Last Infusion: 04/20/24 10:22 Dose: Infused Vancomycin HCl 750 mg/ Sodium (Chloride) 265 mls @ 265 mls/hr IV Q24H [facility] Piperacillin Sod/Tazobactam (Sod 3.375 gm/ Sodium Chloride) 50 mls @ 100 mls/hr IV Q6H [facility] Last Admin: 04/20/24 11:52 Dose: 100 mls/hr Pharmacy Consult (Consult Rx Vancomycin Dosing) 1 each MISCELLANE DAILY PRN PRN Reason: Consult order Tamsulosin HCl (Tamsulosin Hcl 0.4 Mg Capsule) 0.4 mg PO BEDTIME [facility] Home Medications ?Medication ?Instructions ?Recorded ?Confirmed ?Last Taken ?Type multivitamin 1 tab PO DAILY 05/12/21 05/02/24 Unknown History calcium 600 mg (as 1 tab PO DAILY 05/17/23 05/02/24 Unknown History carbonate)-vitamin D3 5 mcg (200 unit) tablet cholecalciferol (vitamin D3) 25 25 mcg PO DAILY 05/17/23 05/02/24 Unknown History mcg (1,000 unit) tablet ferrous sulfate 325 mg (65 mg 325 mg PO DAILY 07/11/23 05/02/24 Unknown History iron) tablet acetaminophen 650 mg 650 mg PO BID 04/01/24 05/02/24 Unknown History tablet,extended release (Tylenol 8 Hour) amiodarone 200 mg tablet 200 mg PO DAILY atrial fibrillation 04/01/24 05/02/24 Unknown History metolazone 2.5 mg tablet 2.5 mg PO MO 04/20/24 05/02/24 Unknown History Physical Exam Vital Signs: Vital Signs: Last Vital Signs Temp 98.5 F 04/20/24 08:00 Pulse 60 04/20/24 11:00 Resp 18 04/20/24 11:00 BP 92/49 L 04/20/24 11:00 Pulse Ox 95 04/20/24 11:00 O2 Del Method Room Air 04/20/24 11:00 BMI result Body Mass Index 32.6 Const: General: no acute distress and well developed Orientation/consciousness: patient oriented x3 HEENT: Head: Yes normocephalic and Yes atraumatic Eyes: Conjunctivae: conjunctivae normal Neck: Neck: Yes normal visual inspection Chest: Chest palpation & inspection: normal inspection of the chest Resp: Effort & Inspection: normal respiratory effort Cardio: Rate: regular rate GI: Inspection: Yes normal to inspection : Other: significant scrotal swelling, with mild erythema tender to palpation. male purewick in place Neuro: General: patient oriented x3 Psych: Appearance: grossly normal Affect: normal affect Results Labs 04/26/24 06:05 04/26/24 06:05 Labs: Abnormal lab results 04/19/24 04/19/24 04/20/24 Range/Units 16:58 16:59 05:25 RBC 4.05 L 3.76 L (4.60-5.80) X10*6/uL Hgb 12.8 L 11.8 L (14.0-18.0) g/dl Hct 38.3 L 36.5 L (42.0-52.0) % Plt Count 153 L (160-400) X10*3/uL Neut % (Auto) 89.1 H 88.8 H (45-73) % Lymph % (Auto) 5.2 L 6.2 L (20-40) % Lymph # (Auto) 0.4 L 0.5 L (1.2-4.9) X10*3/uL ESR 31 H (0-15) MM/HR PT 20.0 H (10.9-12.4) SEC INR 1.7 H (0.9-1.1) Sodium 134 L 134 L (135-145) mmol/L Carbon Dioxide 19 L (22-29) mmol/L BUN 57 H 61 H (9-16) mg/dL Creatinine 1.99 H 2.18 H (0.5-1.4) mg/dL Random Glucose 132 H (60-115) mg/dL Total Bilirubin 2.2 H (0.0-1.0) mg/dL AST 38 H (5-37) U/L ALT 41 H (0-40) U/L Alkaline Phosphatase 140 H (39-117) U/L C-Reactive Protein 1.40 H (< or = 0.50) mg/dL B-Natriuretic Peptide 784 H (<100) pg/mL Albumin 3.3 L (3.5-5.0) g/dL Short CBC 04/19/24 04/20/24 Range/Units 16:59 05:25 WBC 6.9 7.6 (4.8-10.8) X10*3/uL Hgb 12.8 L 11.8 L (14.0-18.0) g/dl Hct 38.3 L 36.5 L (42.0-52.0) % Plt Count 174 153 L (160-400) X10*3/uL BMP 04/19/24 04/20/24 16:59 05:25 Sodium 134 L 134 L Potassium 4.5 4.5 Chloride 97 101 Carbon Dioxide 26 19 L BUN 57 H 61 H Creatinine 1.99 H 2.18 H Calcium 9.2 D 8.8 Liver Function 04/19/24 04/20/24 Range/Units 16:59 05:25 Total Bilirubin 2.2 H (0.0-1.0) mg/dL AST 38 H (5-37) U/L ALT 41 H (0-40) U/L Alkaline Phosphatase 140 H (39-117) U/L Albumin 3.7 3.3 L (3.5-5.0) g/dL Urine 04/19/24 Range/Units 17:31 Urine Color Yellow Urine Appearance Clear Urine pH 5.5 (5.0-9.0) Ur Specific [employer] 1.015 (1.005-1.025) Urine Protein Negative (Neg-Trace) mg/dL Urine Glucose (UA) Negative (Negative) mg/dL All other labs normal. Imaging Additional studies: Date of Service: 04/19/24 CT ABDOMEN AND PELVIS WITHOUT CONTRAST CLINICAL INFORMATION: Distention, fever COMPARISON: 05/20/2023 TECHNIQUE: Multidetector volumetric imaging was performed from the superior aspect of the liver through the pubic symphysis. Sagittal and coronal reformatted images were obtained on the technologist's workstation. This CT examination was performed using dose optimization techniques as appropriate, variously including the following: *Automated exposure control *Adjustment of mA and/or kV according to patient size (this includes techniques or standardized protocols for targeted exams where dose is matched to indication/reason for exam; i.e. extremities or head) *Use of iterative reconstruction technique DLP: 1184 mGy-cm FINDINGS: LUNG BASES: Old healed right-sided posterior rib deformities. Adjacent pleural thickening and parenchymal lesions which appear to be related to likely sequelae of previous infection. Minor bronchiectasis right greater than left. There is a progressive subplural nodular density measuring approximate 2.7 cm right lower lobe. LIVER, GALLBLADDER, AND BILIARY TREE: The liver is normal in size, shape, and attenuation. No focal hepatic lesion or biliary ductal dilatation is present. Tiny stones within the gallbladder lumen without acute inflammatory changes. PANCREAS: Unremarkable. SPLEEN: Unremarkable. ADRENAL GLANDS: Unremarkable. KIDNEYS AND URETERS: Renal cortical cysts right greater than left unchanged. No new findings. No hydronephrosis. BLADDER: Unremarkable. GASTROINTESTINAL TRACT: Severe diverticulosis especially sigmoid colon. No acute inflammatory changes. No obstruction on the current study. No small bowel pathology. ABDOMINAL WALL: No significant hernia is appreciated. LYMPH NODES: Normal. VASCULAR: Unremarkable. PELVIC VISCERA: Brachytherapy seeds noted throughout the prostate gland. Extensive edematous changes noted within the visualized scrotal sac which has enlarged fat-containing inguinal hernias left greater than right and hydroceles nonspecific as well as skin thickening. Testicles not demonstrated or included in the [id number]. OSSEOUS STRUCTURES: Unremarkable. IMPRESSION: 1. No bowel obstruction on the current study. No acute inflammatory changes. 2. Extensive edematous changes noted within the visualized scrotal sac. Correlate with physical exam. 3. Progressive subplural nodular density right lower lobe. Short interval follow-up recommended. According to the UPDATED 2017 Fleischner Society recommendations, the advised follow-up imaging for a single solid nodule measuring 8 mm or greater is: 4. Consider CT, PET/CT, or tissue sampling at 3 months. 5. Incidental findings as above. Assessment and Plan (1) Cellulitis, scrotum: Status: Resolved (2) Sepsis: Qualifiers: Sepsis acute organ dysfunction status: unspecified Sepsis type: sepsis due to unspecified organism Qualified Code(s): A41.9 - Sepsis, unspecified organism Status: Resolved (3) Bilateral lower extremity edema: Status: Inactive Plan Sepsis likely related to lower extremity process Scrotal cellulitis, chronic lymphedema, clinical exam at this time is not suggestive of Fourniers. Keep Scrotum elevated. Recommend Scrotal US tomorrow. Procedures Date of Service Date of Service: 05/13/24
--- NOTE | 2024-04-20 13:35 | MHC.CM.PN ---
IMM DELIVERED CM MET WITH PT AT BEDSIDE IN ICU. PT LIVES WITH SPOUSE, IS FUNCTIONALLY INDEP. AND ONLY USES CANE PRN. NO SERVICES IN THE HOME. +HCP ON FILE AND VERIFIED. PCP DR. DAVIS AT [facility] [place]. DP: HOME NO SERVICES IS THE GOAL, MAY NEED A P.T. EVAL TO DETERMINE NEEDS BEFORE DC. [facility] WILL TRANSPORT. CM WILL CONTINUE TO FOLLOW FOR ANY CHANGE TO DC PLAN/NEEDS.
[2024-04-20] MEDS: Amiodarone HCL 200 MG TABLET 100 MG PO (14:31)
[2024-04-20] MEDS: Amiodarone/Dextrose 150 MG/100 ML PLAST..BAG 600 MG IV (15:59)
[2024-04-20 16:00] LABS: Anion Gap 18 (12-20); Blood Urea Nitrogen 57 mg/dL (9-16); Carbon Dioxide 22 mmol/L (22-29); Chloride 99 mmol/L (96-108); Creatinine Clr Calc Pharmacy 29.8; Estimated Glomerular Filt Rate 31; Glucose Random 87 mg/dL (60-115); Magnesium 2.3 mg/dL (1.6-2.6); Phosphorus 3.6 mg/dL (2.7-4.5); Sodium 135 mmol/L (135-145)
[2024-04-20] MEDS: Amiodarone HCL 900 MG in 0.9 % Sodium Chloride 500 ML 34.53 MG IVCONT (16:01)
[2024-04-20] MEDS: Apixaban 5 MG TABLET PO (16:03)
[2024-04-20] MEDS: Albumin Human 25 % 50 ML 100 ML IV (16:24)
[2024-04-20] MEDS: vancomycin HCL 750 MG in 0.9 % Sodium Chloride 250 ML 265 MG IV (21:59)
[2024-04-20] MEDS: Tamsulosin HCL 0.4 MG CAPSULE PO (22:07)
[2024-04-21] VITALS (36 sets, daily range): BP systolic 90–124; BP diastolic 46–71; PULSE 60–63; RESP 13–20; TEMP 36.4–37.2; O2SAT 92–96; BMI 32.9
[2024-04-21] MEDS: Norepinephrine Bitartrate/D5W 8 MG/250 ML PLAST..BAG 10.97 MG IVCONT (02:30)
[2024-04-21] MEDS: Clindamycin Phosphate/D5W 600 MG/50 ML PIGGYBACK 100 MG IV (02:32)
--- NOTE | 2024-04-21 04:22 | PC.NURSE ---
CARE ASSUMED 7PM..ALERT..ORIENTED X3..RESPIRTIONS EASY.. PER SHIFT REPORT REMAINS WITH MARKED SCROTAL EDEMA...PITTING EDEMA FROM THIGHS/HIPS TO LOWER LEGS..SCROTUM AND LEGS WEEPING SEROUS FLUID....AMIODARONE DRIP 1 MG/MIN DECREASED TO 0.5 MG/MIN AT 10PM PER PROTOCOL/PROVIDER...100% PACED RHYTHM HR 60...BP/MAP MARGINAL...LEVOPHED DRIP RESTARTED PER PROVIDER AND TITRATED TO 0.08 MCG/KG/MIN...PAST HISTORY OF SHALONDA..CYCLIC VARIATIONS OF SAO2 WHEN ASLEEP...SAO2 94-96% AWAKE...SAO2 DOWN TO 82-83% ASLEEP WITH SPONTANEOUS RECOVERY TO 94%...PER PROVIDER RT PLACED ON CPAP 5-12CM...TOLERATED X2 HOURS BUT THEN PATIENT REFUSED FURTHER USE OF CPAP..REPORTED UNABLE TO TOLERATE CPAP AT HOME AND RETURNED MACHINE...REMAINS ALERT..ORIENTED X3 WHEN AWAKE...
[2024-04-21] MEDS: Piperacillin Sodium/Tazobactam 3.375 GM in 0.9 % Sodium Chloride 50 ML IV ×4 (04:45→23:03)
[2024-04-21 05:54] LABS: MANUAL DIFF FLAG NO
[2024-04-21 05:55] LABS: Basophils Percent Auto 0.2 % (0-2); Hematocrit 34.1 % (42.0-52.0); Hemoglobin 11.4 g/dl (14.0-18.0); Imm Gran Abs Auto 0.12 X10*3/uL (0.00-0.03); Imm Gran Pct Auto 1.1 % (0.0-0.4); Lymphocytes Absolute Auto 0.6 X10*3/uL (1.2-4.9); Lymphocytes Percent Auto 5.1 % (20-40); Mean Corpuscular HGB Conc 33.4 g/dl (31.0-36.0); Mean Corpuscular Hemoglobin 31.5 pg (27.0-33.0); Mean Corpuscular Volume 94.2 fL (80.0-98.0); Mean Platelet Volume 9.9 fL (9.4-12.4); Monocytes Absolute Auto 1.1 X10*3/uL (0.1-1.2); Monocytes Percent Auto 10.3 % (2-11); Neutrophils Percent Auto 83.3 % (45-73); Platelet Count 164 X10*3/uL (160-400); Red Blood Count 3.62 X10*6/uL (4.60-5.80); Red Cell Distribution Width 15.7 % (11.0-16.0); White Blood Count 10.8 X10*3/uL (4.8-10.8)
[2024-04-21 06:10] LABS: Albumin Level 3.2 g/dL (3.5-5.0); Anion Gap 16 (12-20); Blood Urea Nitrogen 62 mg/dL (9-16); Carbon Dioxide 20 mmol/L (22-29); Chloride 97 mmol/L (96-108); Creatinine Clr Calc Pharmacy 27.5; Estimated Glomerular Filt Rate 28; Glucose Random 134 mg/dL (60-115); Magnesium 2.2 mg/dL (1.6-2.6); Phosphorus 3.9 mg/dL (2.7-4.5); Potassium 4.3 mmol/L (3.3-5.1); Sodium 129 mmol/L (135-145)
[2024-04-21] MEDS: 0.9 % Sodium Chloride Flush 3 ML SYRINGE IVFLUSH ×3 (09:44→21:57)
[2024-04-21] MEDS: Albumin Human 25 % 100 ML IV ×3 (09:44→20:06)
[2024-04-21] MEDS: Amiodarone HCL 200 MG TABLET 400 MG PO (09:45)
--- NOTE | 2024-04-21 10:47 | P.PNCC_ITS ---
Subjective Subjective Date of Service: 04/21/24 Interval History: 83-year-old gentleman with underlying congestive heart failure, AFib on Eliquis, stage 3 kidney disease, lymphedema, SHALONDA admitted on 04/20/2024 with right sided lower extremity cellulitis and edema, including scrotal edema, requiring pressor support. Patient evaluated by urology service with no concerns for Marie's gangrene. Critical Care Time (minutes): 60 Physical Exam 2 Vital Signs: Vital Signs: Last Vital Signs Temp 99.0 F 04/21/24 08:00 Pulse 60 04/21/24 09:00 Resp 14 04/21/24 09:00 BP 121/59 L 04/21/24 09:00 Pulse Ox 93 04/21/24 09:00 O2 Del Method Room Air 04/21/24 09:00 FiO2 21 04/21/24 02:00 BMI result Body Mass Index 32.9 Const: General: no acute distress, alert and awake Eyes: Sclerae: sclerae normal EOM: EOMs intact bilaterally Neck: Neck: Yes no lymphadenopathy, Yes trachea midline and Yes supple Resp: Effort & Inspection: normal respiratory effort and no respiratory distress Auscultation: clear to auscultation bilaterally Cardio: Rate: regular rate Rhythm: regular rhythm Heart sounds: no gallops, no murmurs and no rubs GI: Palpation (GI): Soft to palpation and Other GI palpation findings present ( Nontender) Auscultation: normal bowel sounds Extrem: General: Yes no pedal edema (3+ [id number]-left, including scrotum), No clubbing and No cyanosis Objective Data Labs 04/21/24 05:23 04/21/24 05:23 Labs: Laboratory Results - last 24 hr 04/20/24 04/21/24 15:23 05:23 WBC 10.8 RBC 3.62 L Hgb 11.4 L Hct 34.1 L MCV 94.2 MCH 31.5 MCHC 33.4 RDW 15.7 Plt Count 164 MPV 9.9 Immature Gran % (Auto) 1.1 H Neut % (Auto) 83.3 H Lymph % (Auto) 5.1 L Yates % (Auto) 10.3 Eos % (Auto) 0.0 Baso % (Auto) 0.2 Lymph # (Auto) 0.6 L Yates # (Auto) 1.1 Eos # (Auto) 0.0 Baso # (Auto) 0.0 Abs Immat Gran (auto) 0.12 H Absolute Neuts (auto) 9.0 H Absolute Nucleated RBC 0.000 Nucleated RBC % (auto) 0.0 Hold Purple Top SEE NOTE Sodium 135 129 L Potassium 4.0 4.3 Chloride 99 97 Carbon Dioxide 22 20 L Anion Gap 18 16 BUN 57 H 62 H Creatinine 2.05 H 2.23 H Estim Creat Clear Calc 29.8 27.5 Estimated GFR 31 28 Random Glucose 87 134 H Calcium 9.0 9.0 Phosphorus 3.6 3.9 Magnesium 2.3 2.2 Albumin 3.2 L Microbiology Microbiology Results: Microbiology 04/19/24 20:47 Blood - Venous Blood Culture - Preliminary No growth after 24 hours. 04/19/24 20:47 Blood - Venous Blood Culture - Preliminary Prelim: GNR Gram Stain only Progress Note: A&P Assessment and plan (1) JB (acute kidney injury): Status: Acute (2) Chronic kidney disease, stage 3: Status: Acute (3) Cellulitis: Status: Acute (4) Chronic right heart failure: Status: Acute (5) Septic shock: Status: Acute Plan Assessment: 83-year-old gentleman with underlying CHF, pulmonary hypertension, AFib, CKD admitted with right lower extremity cellulitis with septic shock lower extremity/scrotal edema Plan: Neuro: No acute issues. Cardiac: Septic shock, continue to titrate off pressor support as tolerated. Underlying history of congestive heart failure, AFib on anticoagulation, and pulmonary hypertension. Pulmonary: No acute issues. Renal: JB and CKD likely secondary to septic shock. Non oliguric. Continue to monitor renal indices and urine output. Scrotal edema, evaluated by Urology, no concerns for Marie's gangrene. Endo: No acute issues. GI: No acute issues. ID: Lower extremity cellulitis, continue empiric antibiotics. Cultures are pending. Heme/Onc: No acute issues. Psych: No acute issues. Miscellaneous: No acute issues. Prophylaxis: Apixaban Diet: Regular Critical care time spent: 60 minutes Quality Stroke Does the patient have a stroke diagnosis?: No VTE Prior VTE?: No VTE Risk Level:: Medical - moderate - high VTE Device Contraindication: N/A - Device Ordered VTE Drug Contraindication: N/A - Med Ordered
[2024-04-21] MEDS: Furosemide 200 MG in 0.9 % Sodium Chloride 80 ML IVCONT (11:20)
--- NOTE | 2024-04-21 14:37 | MHC.CM.PN ---
Pt continues on pressors for BP support. Pt from home w/family and is expected to return when clinically stable. CM to follow for changes in d/c plans
[2024-04-21] MEDS: Apixaban 2.5 MG TABLET PO (20:07)
[2024-04-21] MEDS: Tamsulosin HCL 0.4 MG CAPSULE PO (20:08)
[2024-04-21 20:47] LABS: Vancomycin Random 15.7 mcg/mL (15-20)
--- NOTE | 2024-04-21 20:55 | HE.PHANOTE ---
Vancomycin dosing Vanco level 15.7 today. Continue current regimen vanco 750 mg Q24h, prediecyed AUC 499 with a trough of 17.2. Next level 04/23 @ 200. If renal function continue to worsen, level may need to be drawn sooner. May Magaña, PharmD
[2024-04-21 21:05] LABS: Anion Gap 13 (12-20); Blood Urea Nitrogen 56 mg/dL (9-16); Calcium 8.5 mg/dL (8.4-10.2); Carbon Dioxide 20 mmol/L (22-29); Chloride 100 mmol/L (96-108); Creatinine Clr Calc Pharmacy 26.7; Estimated Glomerular Filt Rate 27; Glucose Random 131 mg/dL (60-115); Magnesium 2.3 mg/dL (1.6-2.6); Phosphorus 4.1 mg/dL (2.7-4.5); Potassium 4.2 mmol/L (3.3-5.1); Sodium 129 mmol/L (135-145)
[2024-04-21] MEDS: vancomycin HCL 750 MG in 0.9 % Sodium Chloride 250 ML 265 MG IV (21:47)
[2024-04-22] VITALS (28 sets, daily range): BP systolic 87–121; BP diastolic 45–65; PULSE 60–66; RESP 13–20; TEMP 36.2–36.9; O2SAT 90–98; BMI 32.6
--- NOTE | 2024-04-22 01:08 | PC.RT ---
PT refusing CPAP
[2024-04-22] MEDS: Albumin Human 25 % 100 ML IV (01:34)
[2024-04-22] MEDS: Norepinephrine Bitartrate/D5W 8 MG/250 ML PLAST..BAG 7.31 MG IVCONT (02:13)
[2024-04-22] MEDS: Piperacillin Sodium/Tazobactam 3.375 GM in 0.9 % Sodium Chloride 50 ML IV (04:07)
[2024-04-22 05:30] LABS: VBG Base Excess 0.4 mmol/L; VBG HCO3 23 mmol/L (22-26); VBG pCO2 33 mmHg; VBG pH 7.45 (7.32-7.43); VBG pO2 69 mmHg
[2024-04-22 05:43] LABS: Venous Blood Gas Refer to POC result
[2024-04-22 06:04] LABS: MANUAL DIFF FLAG NO
[2024-04-22 06:07] LABS: Basophils Percent Auto 0.2 % (0-2); Hematocrit 31.6 % (42.0-52.0); Hemoglobin 10.8 g/dl (14.0-18.0); Imm Gran Abs Auto 0.16 X10*3/uL (0.00-0.03); Imm Gran Pct Auto 1.5 % (0.0-0.4); Lymphocytes Absolute Auto 0.6 X10*3/uL (1.2-4.9); Lymphocytes Percent Auto 5.7 % (20-40); Mean Corpuscular HGB Conc 34.2 g/dl (31.0-36.0); Mean Corpuscular Hemoglobin 32.3 pg (27.0-33.0); Mean Corpuscular Volume 94.6 fL (80.0-98.0); Mean Platelet Volume 10.1 fL (9.4-12.4); Monocytes Absolute Auto 1.1 X10*3/uL (0.1-1.2); Monocytes Percent Auto 10.6 % (2-11); Neutrophils Absolute Auto 8.6 x10*3/uL (2.0-8.3); Platelet Count 154 X10*3/uL (160-400); Red Blood Count 3.34 X10*6/uL (4.60-5.80); Red Cell Distribution Width 15.5 % (11.0-16.0); White Blood Count 10.4 X10*3/uL (4.8-10.8)
[2024-04-22 06:39] LABS: Albumin Level 3.7 g/dL (3.5-5.0); Anion Gap 17 (12-20); Blood Urea Nitrogen 60 mg/dL (9-16); Calcium 9.3 mg/dL (8.4-10.2); Carbon Dioxide 20 mmol/L (22-29); Chloride 98 mmol/L (96-108); Estimated Glomerular Filt Rate 29; Glucose Random 97 mg/dL (60-115); Magnesium 2.3 mg/dL (1.6-2.6); Potassium 4.2 mmol/L (3.3-5.1); Sodium 131 mmol/L (135-145)
[2024-04-22] MEDS: 0.9 % Sodium Chloride Flush 3 ML SYRINGE IVFLUSH ×3 (08:27→19:48)
[2024-04-22] MEDS: Apixaban 2.5 MG TABLET PO ×2 (08:31→19:48)
[2024-04-22] MEDS: Amiodarone HCL 200 MG TABLET 400 MG PO (08:31)
--- NOTE | 2024-04-22 10:03 | PM.CCPN ---
Subjective Subjective Date of Service: 04/22/24 Interval History: 83-year-old gentleman with underlying congestive heart failure, AFib on Eliquis, stage 3 kidney disease, lymphedema, SHALONDA admitted on 04/20/2024 with right sided lower extremity cellulitis and edema, including scrotal edema, requiring pressor support. Patient evaluated by urology service with no concerns for Marie's gangrene. Blood cultures growing Klebsiella. No events overnight. Critical Care Time (minutes): 45 Physical Exam Vital Signs: Vital Signs: Last Vital Signs Temp 98.5 F 04/22/24 08:00 Pulse 60 04/22/24 09:00 Resp 18 04/22/24 09:00 BP 109/57 L 04/22/24 09:00 Pulse Ox 93 04/22/24 09:00 O2 Del Method Room Air 04/22/24 09:00 FiO2 21 04/21/24 02:00 BMI result Body Mass Index 32.6 Const: General: no acute distress, alert and awake Nutritional Appearance: Edematous Eyes: Sclerae: sclerae normal EOM: EOMs intact bilaterally Neck: Neck: Yes no lymphadenopathy, Yes trachea midline and Yes supple Resp: Effort & Inspection: normal respiratory effort and no respiratory distress Auscultation: clear to auscultation bilaterally Cardio: Rate: regular rate Rhythm: regular rhythm Heart sounds: no gallops, no murmurs and no rubs GI: Palpation (GI): Soft to palpation and Other GI palpation findings present ( Nontender) Auscultation: normal bowel sounds Extrem: General: No clubbing, No cyanosis and Yes edema (Lower extremity edema up to scrotum) Objective Data Labs 04/22/24 05:26 04/22/24 05:26 Labs: Laboratory Results - last 24 hr 04/21/24 04/21/24 04/22/24 20:04 20:47 05:19 WBC RBC Hgb Hct MCV MCH MCHC RDW Plt Count MPV Immature Gran % (Auto) Neut % (Auto) Lymph % (Auto) [place] % (Auto) Eos % (Auto) Baso % (Auto) Lymph # (Auto) [place] # (Auto) Eos # (Auto) Baso # (Auto) Abs Immat Gran (auto) Absolute Neuts (auto) Absolute Nucleated RBC Nucleated RBC % (auto) VBG pH 7.45 H VBG pCO2 33 VBG pO2 69 VBG HCO3 23 VBG O2 Saturation 94.0 VBG Base Excess 0.4 Sodium 129 L Potassium 4.2 Chloride 100 Carbon Dioxide 20 L Anion Gap 13 BUN 56 H Creatinine 2.29 H Estim Creat Clear Calc 26.7 Estimated GFR 27 Random Glucose 131 H Calcium 8.5 Phosphorus 4.1 Magnesium 2.3 Albumin Random Vancomycin 15.7 04/22/24 05:26 WBC 10.4 RBC 3.34 L Hgb 10.8 L Hct 31.6 L MCV 94.6 MCH 32.3 MCHC 34.2 RDW 15.5 Plt Count 154 L MPV 10.1 Immature Gran % (Auto) 1.5 H Neut % (Auto) 82.0 H Lymph % (Auto) 5.7 L [place] % (Auto) 10.6 Eos % (Auto) 0.0 Baso % (Auto) 0.2 Lymph # (Auto) 0.6 L [place] # (Auto) 1.1 Eos # (Auto) 0.0 Baso # (Auto) 0.0 Abs Immat Gran (auto) 0.16 H Absolute Neuts (auto) 8.6 H Absolute Nucleated RBC 0.000 Nucleated RBC % (auto) 0.0 VBG pH VBG pCO2 VBG pO2 VBG HCO3 VBG O2 Saturation VBG Base Excess Sodium 131 L Potassium 4.2 Chloride 98 Carbon Dioxide 20 L Anion Gap 17 BUN 60 H Creatinine 2.18 H Estim Creat Clear Calc 28.0 Estimated GFR 29 Random Glucose 97 Calcium 9.3 D Phosphorus 4.0 Magnesium 2.3 Albumin 3.7 Random Vancomycin Microbiology Microbiology Results: Microbiology 04/19/24 20:47 Blood - Venous Blood Culture - Final Klebsiella pneumoniae 04/19/24 20:47 Blood - Venous Blood Culture - Preliminary No growth after 48 hours. Progress Note: A&P Assessment and plan (1) Cellulitis: Status: Acute (2) Septic shock: Status: Acute (3) Bacteremia due to Klebsiella pneumoniae: Status: Acute (4) Peripheral edema: Status: Acute Plan Assessment: 83-year-old gentleman with underlying CHF, pulmonary hypertension, AFib, CKD admitted with right lower extremity cellulitis with septic shock lower extremity/scrotal edema Plan: Neuro: No acute issues. Cardiac: Septic shock, continue to titrate off pressor support as tolerated. Underlying history of congestive heart failure, AFib on anticoagulation, and pulmonary hypertension. Pulmonary: No acute issues. Renal: JB and CKD likely secondary to septic shock. Non oliguric. Continue to monitor renal indices and urine output. Scrotal edema, evaluated by Urology, no concerns for Marie's gangrene. Continue IV diuresis. Endo: No acute issues. GI: No acute issues. ID: Lower extremity cellulitis, blood cultures growing Klebsiella. Antibiotics narrowed to ceftriaxone. Heme/Onc: No acute issues. Psych: No acute issues. Miscellaneous: No acute issues. Prophylaxis: Apixaban Diet: Regular Critical care time spent: 45 minutes Quality Stroke Does the patient have a stroke diagnosis?: No VTE Prior VTE?: No VTE Risk Level:: Medical - moderate - high VTE Device Contraindication: N/A - Device Ordered VTE Drug Contraindication: N/A - Med Ordered
--- NOTE | 2024-04-22 10:03 | MHC.CM.PN ---
Pt continues care in ICU: on Pressors, continuous IV diuretics and ATB. 1 out of 2 blood cx returned for gram neg rods: Pt initially from home : will broadly refer to SNF in the event he requires continued care after d/c. CM to follow
[2024-04-22] MEDS: Furosemide 200 MG in 0.9 % Sodium Chloride 80 ML IVCONT (10:42)
[2024-04-22] MEDS: cefTRIAXone sodium 1 GM VIAL IVPUSH (11:05)
--- NOTE | 2024-04-22 16:16 | HO.WOUND ---
Wound Consult: Initial 83yr old? male admitted to [facility] on 04/20/24 - See progress notes and H&P for detailed history.? Wound consult placed for scrotal swelling and right leg swelling. Arrival to bedside direct care nurse reports interventions in place already appear to be managing tissue damage / prevention. Patient agreeable to assessment and photo documentation.? Scrotum assessed - barrier cream in place and large scrotum noted - no open wounds appreciated at this time. Recommend continue with Interdry sling and barrier cream to protect from moisture and friction. The right leg was noted for redness and swelling. He is note to be weeping yellow drainage - no odor noted. Recommend continued elevation and cream application and wrap in dry flow pad to absorb and wick away drainage as it occurs. No new topical recommendations needed at this time. Left Leg noted to redness and swelling less then right leg and no weeping noted / reported. The patient remains on a ICU specialty bed with CUAUHTEMOC in place, barrier creams in place. Recommendations: 1. Turn and Reposition every 2 hours and as needed for patient comfort.? Use pillows or wedges to support off loading positions. 2. Off Load all bony prominences with use of pillows and heel boots if needed.? Apply Preventative foams where needed. ? 3. Monitor for incontinence and moisture control, use barrier creams when needed for prevention and treatment. 4. Provide adequate and supplemental nutrition.? 5. Continue low air loss mattress. 6. When applicable maintain blood glucose levels per Providers order. 7. Scrotum - Cleanse with Balaji spray, wipe clean, pat dry. Apply barrier cream twice daily and PRN. Use interdry to create sling under swollen scrotum to elevate and wick away moisture. Interdry can stay in place for up to 5 days or until soiled. 8. Right Leg - Elevate legs on pillows. Float heels off of bed surface. Routine cleansing. Apply lotion to keep skin supple, wrap lightly in dry flow pad to wick away moisture while leg is weeping. Re-consult wound care Nurse for wound deterioration or wound changes.
[2024-04-22] MEDS: Tamsulosin HCL 0.4 MG CAPSULE PO (19:48)
[2024-04-22 20:15] LABS: Anion Gap 12 (12-20); Blood Urea Nitrogen 63 mg/dL (9-16); Calcium 8.5 mg/dL (8.4-10.2); Carbon Dioxide 25 mmol/L (22-29); Chloride 98 mmol/L (96-108); Creatinine Clr Calc Pharmacy 28.6; Estimated Glomerular Filt Rate 30; Glucose Random 96 mg/dL (60-115); Magnesium 2.4 mg/dL (1.6-2.6); Phosphorus 4.2 mg/dL (2.7-4.5); Potassium 3.8 mmol/L (3.3-5.1); Sodium 131 mmol/L (135-145)
[2024-04-23] VITALS (23 sets, daily range): BP systolic 99–117; BP diastolic 50–79; PULSE 54–75; RESP 12–20; TEMP 36.2–37.1; O2SAT 54–95; BMI 32.8
[2024-04-23] MEDS: Norepinephrine Bitartrate/D5W 8 MG/250 ML PLAST..BAG 7.31 MG IVCONT (01:10)
[2024-04-23] MEDS: Acetaminophen 325 MG TABLET 650 MG PO (02:03)
[2024-04-23 05:40] LABS: MANUAL DIFF FLAG NO
[2024-04-23 05:42] LABS: Basophils Percent Auto 0.4 % (0-2); Eosinophils Absolute Auto 0.1 X10*3/uL (0.0-0.4); Eosinophils Percent Auto 1.2 % (0-4); Hematocrit 34.6 % (42.0-52.0); Hemoglobin 11.6 g/dl (14.0-18.0); Imm Gran Abs Auto 0.18 X10*3/uL (0.00-0.03); Imm Gran Pct Auto 1.7 % (0.0-0.4); Lymphocytes Absolute Auto 0.6 X10*3/uL (1.2-4.9); Lymphocytes Percent Auto 5.5 % (20-40); Mean Corpuscular HGB Conc 33.5 g/dl (31.0-36.0); Mean Corpuscular Hemoglobin 31.5 pg (27.0-33.0); Mean Platelet Volume 9.6 fL (9.4-12.4); Monocytes Absolute Auto 1.3 X10*3/uL (0.1-1.2); Neutrophils Absolute Auto 8.6 x10*3/uL (2.0-8.3); Neutrophils Percent Auto 79.2 % (45-73); Platelet Count 185 X10*3/uL (160-400); Red Blood Count 3.68 X10*6/uL (4.60-5.80); Red Cell Distribution Width 15.5 % (11.0-16.0); White Blood Count 10.9 X10*3/uL (4.8-10.8)
[2024-04-23 05:56] LABS: Albumin Level 3.6 g/dL (3.5-5.0); Anion Gap 16 (12-20); Blood Urea Nitrogen 58 mg/dL (9-16); Calcium 9.2 mg/dL (8.4-10.2); Carbon Dioxide 20 mmol/L (22-29); Chloride 99 mmol/L (96-108); Creatinine Clr Calc Pharmacy 27.9; Estimated Glomerular Filt Rate 29; Glucose Random 100 mg/dL (60-115); Magnesium 2.4 mg/dL (1.6-2.6); Potassium 3.7 mmol/L (3.3-5.1); Sodium 131 mmol/L (135-145)
[2024-04-23] MEDS: Apixaban 2.5 MG TABLET PO ×2 (08:31→20:36)
[2024-04-23] MEDS: Amiodarone HCL 200 MG TABLET 400 MG PO (08:32)
[2024-04-23] MEDS: 0.9 % Sodium Chloride Flush 3 ML SYRINGE IVFLUSH ×2 (08:32→20:36)
[2024-04-23] MEDS: cefTRIAXone sodium 1 GM VIAL IVPUSH (09:52)
--- NOTE | 2024-04-23 10:24 | P.PNCC_ITS ---
Subjective Subjective Date of Service: 04/23/24 Interval History: 83-year-old gentleman with underlying congestive heart failure, AFib on Eliquis, stage 3 kidney disease, lymphedema, SHALONDA admitted on 04/20/2024 with right sided lower extremity cellulitis and edema, including scrotal edema, requiring pressor support. Patient evaluated by urology service with no concerns for Marie's gangrene. Blood cultures growing Klebsiella. No events overnight. Titrated off pressor support. Critical Care Time (minutes): 0 Physical Exam 2 Vital Signs: Vital Signs: Last Vital Signs Temp 97.8 F 04/23/24 08:00 Pulse 60 04/23/24 10:00 Resp 18 04/23/24 10:00 BP 116/57 L 04/23/24 10:00 Pulse Ox 90 L 04/23/24 10:00 O2 Del Method Room Air 04/23/24 10:00 FiO2 21 04/21/24 02:00 BMI result Body Mass Index 32.8 Const: General: no acute distress, alert and awake Eyes: Sclerae: sclerae normal EOM: EOMs intact bilaterally Neck: Neck: Yes no lymphadenopathy, Yes trachea midline and Yes supple Resp: Effort & Inspection: normal respiratory effort and no respiratory distress Auscultation: clear to auscultation bilaterally Cardio: Rate: regular rate Rhythm: regular rhythm Heart sounds: no gallops, no murmurs and no rubs GI: Palpation (GI): Soft to palpation and Other GI palpation findings present ( Nontender) Auscultation: normal bowel sounds Extrem: Other: Lower extremity edema including scrotum, improving. Right lower extremity cellulitic rash improving. General: No clubbing and No cyanosis Objective Data Labs 04/23/24 05:27 04/23/24 05:27 Labs: Laboratory Results - last 24 hr 04/22/24 04/22/24 04/23/24 19:14 19:53 05:27 WBC 10.9 H RBC 3.68 L Hgb 11.6 L Hct 34.6 L MCV 94.0 MCH 31.5 MCHC 33.5 RDW 15.5 Plt Count 185 MPV 9.6 Immature Gran % (Auto) 1.7 H Neut % (Auto) 79.2 H Lymph % (Auto) 5.5 L [place] % (Auto) 12.0 H Eos % (Auto) 1.2 Baso % (Auto) 0.4 Lymph # (Auto) 0.6 L [place] # (Auto) 1.3 H Eos # (Auto) 0.1 Baso # (Auto) 0.0 Abs Immat Gran (auto) 0.18 H Absolute Neuts (auto) 8.6 H Absolute Nucleated RBC 0.000 Nucleated RBC % (auto) 0.0 Hold Purple Top SEE NOTE Sodium 131 L 131 L Potassium 3.8 3.7 Chloride 98 99 Carbon Dioxide 25 20 L Anion Gap 12 16 BUN 63 H 58 H Creatinine 2.13 H 2.19 H Estim Creat Clear Calc 28.6 27.9 Estimated GFR 30 29 Random Glucose 96 100 Calcium 8.5 D 9.2 D Phosphorus 4.2 4.0 Magnesium 2.4 2.4 Albumin 3.6 Microbiology Microbiology Results: Microbiology 04/19/24 20:47 Blood - Venous Blood Culture - Final Klebsiella pneumoniae 04/19/24 20:47 Blood - Venous Blood Culture - Preliminary No growth after 48 hours. Progress Note: A&P Assessment and plan (1) Persistent atrial fibrillation: Status: Acute (2) Sepsis: Status: Acute (3) Cellulitis: Status: Acute (4) Peripheral edema: Status: Acute Plan Assessment: 83-year-old gentleman with underlying CHF, pulmonary hypertension, AFib, CKD admitted with right lower extremity cellulitis with septic shock lower extremity/scrotal edema Plan: Neuro: No acute issues. Cardiac: Septic shock, resolved. Underlying history of congestive heart failure, AFib on anticoagulation, and pulmonary hypertension. Pulmonary: No acute issues. Renal: JB and CKD likely secondary to septic shock. Non oliguric. Continue to monitor renal indices and urine output. Scrotal edema, evaluated by Urology, no concerns for Marie's gangrene. Continue IV diuresis. Endo: No acute issues. GI: No acute issues. ID: Lower extremity cellulitis, blood cultures growing Klebsiella. Continue ceftriaxone. Heme/Onc: No acute issues. Psych: No acute issues. Miscellaneous: No acute issues. Prophylaxis: Apixaban Diet: Regular Quality Stroke Does the patient have a stroke diagnosis?: No VTE Prior VTE?: No VTE Risk Level:: Medical - moderate - high VTE Device Contraindication: N/A - Device Ordered VTE Drug Contraindication: N/A - Med Ordered
[2024-04-23] MEDS: Furosemide 200 MG in 0.9 % Sodium Chloride 80 ML IVCONT (10:47)
--- NOTE | 2024-04-23 15:06 | MHC.CM.PN ---
Pt remains in ICU - pressors tapered off - continues IV Lasix for diuresis: Pt referred to SNF as it is likely he will need continued care following d/c. CM to follow
[2024-04-23] MEDS: Tamsulosin HCL 0.4 MG CAPSULE PO (20:36)
[2024-04-24] VITALS (7 sets, daily range): BP systolic 104–118; BP diastolic 56–65; PULSE 59–70; RESP 16–20; TEMP 36.3–37.1; O2SAT 93–96
[2024-04-24 06:45] LABS: MANUAL DIFF FLAG NO
[2024-04-24 06:55] LABS: Basophils Percent Auto 0.4 % (0-2); Hematocrit 34.3 % (42.0-52.0); Hemoglobin 11.3 g/dl (14.0-18.0); Imm Gran Abs Auto 0.16 X10*3/uL (0.00-0.03); Lymphocytes Absolute Auto 0.5 X10*3/uL (1.2-4.9); Lymphocytes Percent Auto 6.7 % (20-40); Mean Corpuscular HGB Conc 32.9 g/dl (31.0-36.0); Mean Corpuscular Hemoglobin 31.7 pg (27.0-33.0); Mean Corpuscular Volume 96.1 fL (80.0-98.0); Mean Platelet Volume 9.9 fL (9.4-12.4); Monocytes Absolute Auto 1.1 X10*3/uL (0.1-1.2); Monocytes Percent Auto 14.2 % (2-11); Neutrophils Percent Auto 76.7 % (45-73); Platelet Count 174 X10*3/uL (160-400); Red Blood Count 3.57 X10*6/uL (4.60-5.80); Red Cell Distribution Width 15.3 % (11.0-16.0); White Blood Count 7.9 X10*3/uL (4.8-10.8)
[2024-04-24 07:12] LABS: Albumin Level 3.6 g/dL (3.5-5.0); Anion Gap 13 (12-20); Blood Urea Nitrogen 64 mg/dL (9-16); Calcium 9.2 mg/dL (8.4-10.2); Carbon Dioxide 28 mmol/L (22-29); Chloride 96 mmol/L (96-108); Creatinine Clr Calc Pharmacy 30.6; Estimated Glomerular Filt Rate 32; Glucose Random 86 mg/dL (60-115); Magnesium 2.5 mg/dL (1.6-2.6); Phosphorus 3.6 mg/dL (2.7-4.5); Potassium 3.7 mmol/L (3.3-5.1); Sodium 133 mmol/L (135-145)
[2024-04-24] MEDS: Apixaban 2.5 MG TABLET PO ×2 (08:36→21:05)
[2024-04-24] MEDS: Amiodarone HCL 200 MG TABLET 400 MG PO (08:37)
[2024-04-24] MEDS: 0.9 % Sodium Chloride Flush 3 ML SYRINGE IVFLUSH ×2 (08:38→21:05)
[2024-04-24] MEDS: cefTRIAXone sodium 1 GM VIAL IVPUSH (10:49)
[2024-04-24] MEDS: Furosemide 200 MG in 0.9 % Sodium Chloride 80 ML IVCONT (11:21)
--- NOTE | 2024-04-24 15:26 | P.PNIM_ITS ---
Subjective Subjective Date of Service: 04/24/24 Interval History: No acute issues overnight. Feels much better than admission Review of Systems Denies chest pain Denies shortness of breath Denies nausea vomiting diarrhea Denies fever chills Physical Exam 2 Vital Signs: Vital Signs: Last Vital Signs Temp 97.4 F 04/24/24 15:07 Pulse 60 04/24/24 15:07 Resp 18 04/24/24 15:07 BP 104/56 L 04/24/24 15:07 Pulse Ox 95 04/24/24 15:07 O2 Del Method Room Air 04/24/24 15:07 FiO2 21 04/21/24 02:00 BMI result Body Mass Index 32.8 Const: Other: Awake alert no acute distress Resp: Other: Clear to auscultation bilaterally no rales rhonchi or wheezes Cardio: Other: No S4; positive S1-S2; no S3 murmurs rubs or gallops GI: Other: Soft nontender nondistended normoactive bowel sounds Extrem: Other: No edema in bilateral Objective Data Active Medications Acetaminophen (Acetaminophen 325 Mg Tablet) 650 mg PO Q6H PRN PRN Reason: Pain, Moderate(Pain Scale 4-6) Last Admin: 04/23/24 02:03 Dose: 650 mg Documented By: MARV Amiodarone HCl (Amiodarone Hcl 200 Mg Tablet) 400 mg PO DAILY [facility] Last Admin: 04/24/24 08:37 Dose: 400 mg Documented By: KIRA Apixaban (Apixaban 2.5 Mg Tablet) 2.5 mg PO BID [facility] Last Admin: 04/24/24 08:36 Dose: 2.5 mg Documented By: KIRA Ceftriaxone Sodium (Ceftriaxone Sodium 1 Gm Vial) 1 gm IVPUSH Q24H [facility] Last Admin: 04/24/24 10:49 Dose: 1 gm Documented By: KIRA Furosemide 200 mg/ Sodium (Chloride) 100 mls @ 2.5 mls/hr IVCONT .Q24H [facility] Last Admin: 04/24/24 11:21 Dose: 5 mg/hr, 2.5 mls/hr Documented By: KIRA Sodium Chloride (0.9 % Sodium Chloride Flush 3 Ml Syringe) 3 ml IVFLUSH QSHIFT [facility] Last Admin: 04/24/24 08:38 Dose: 3 ml Documented By: KIRA Tamsulosin HCl (Tamsulosin Hcl 0.4 Mg Capsule) 0.4 mg PO BEDTIME [facility] Last Admin: 04/23/24 20:36 Dose: 0.4 mg Documented By: RADHA Labs 04/24/24 06:14 04/24/24 06:14 Labs: Laboratory Results - last 24 hr 04/24/24 06:14 MCV 96.1 MCH 31.7 MCHC 32.9 RDW 15.3 Plt Count 174 MPV 9.9 Immature Gran % (Auto) 2.0 H Neut % (Auto) 76.7 H Lymph % (Auto) 6.7 L [place] % (Auto) 14.2 H Eos % (Auto) 0.0 Baso % (Auto) 0.4 Lymph # (Auto) 0.5 L [place] # (Auto) 1.1 Eos # (Auto) 0.0 Baso # (Auto) 0.0 Abs Immat Gran (auto) 0.16 H Absolute Neuts (auto) 6.0 Absolute Nucleated RBC 0.000 Nucleated RBC % (auto) 0.0 Anion Gap 13 Estim Creat Clear Calc 30.6 Estimated GFR 32 Random Glucose 86 Calcium 9.2 Phosphorus 3.6 Magnesium 2.5 Albumin 3.6 Assessment and Plan (1) Cellulitis: Status: Acute (2) Bacteremia due to Klebsiella pneumoniae: Status: Acute Plan 83-year-old male past medical history significant for fatty liver, anasarca, hypertension, CHF, atrial fibrillation on Eliquis, status post pacemaker implantation, Kidney disease stage 3, lymphedema, SHALONDA admitted with cellulitis c/b sepsis. Admitted to ICU for pressors but subsequently weaned without issue. Imaging scrotum unremarkable for abscess 1. Scrotal cellulitis (sepsis resolved)/lower extremity cellulitis -ceftriaxone 1 g daily (3) -white count normalized.. Ultrasound noted -urology note appreciated; not [place]iers -blood cultures 1/2 Klebsiella sensitive to ceftriaxone 2. Paroxysmal atrial fibrillation -acceptable rate control on current therapies -amiodarone as ordered -Eliquis 3. Hypertension -acceptable control on current therapies -adjust as indicated Full code Eliquis Requires ongoing hospitalization for IV antibiotics for Klebsiella bacteremia. Quality Stroke Does the patient have a stroke diagnosis?: No VTE Prior VTE?: No VTE Risk Level:: Medical - moderate - high VTE Device Contraindication: N/A - Device Ordered VTE Drug Contraindication: N/A - Med Ordered
--- NOTE | 2024-04-24 15:31 | MHC.CM.PN ---
EMR reviewed and per MD rounds, pt is not medically cleared for discharge due to management of sepsis and CHF, pt was transferred from the ICU to [facility]. This CM attempted to meet with pt to discuss his eventual discharge plans as PT has recommended STR, pt appearing very tired, and unable to engage in conversation at this time. This CM called pts HCP/ Shira, voicemail was left on cell and home phone numbers, awaiting return call. STR referral updated, multiple facilities interested/following.
--- NOTE | 2024-04-24 16:04 | MHC.CM.PN ---
This CM met with pt and his present at bedside to discuss discharge plan. Pt states he is not interested in going to STR and would like to go home. Pt would be agreeable with VNA services at home, and he and his are accepting of [facility] services.
[2024-04-24] MEDS: Tamsulosin HCL 0.4 MG CAPSULE PO (21:05)
[2024-04-25] VITALS (7 sets, daily range): BP systolic 99–142; BP diastolic 56–64; PULSE 59–61; RESP 16–20; TEMP 36.1–36.6; O2SAT 93–95; BMI 35.7
[2024-04-25 08:16] LABS: MANUAL DIFF FLAG NO
[2024-04-25 08:20] LABS: Basophils Absolute Auto 0.1 X10*3/uL (0.0-0.2); Basophils Percent Auto 0.9 % (0-2); Eosinophils Absolute Auto 0.1 X10*3/uL (0.0-0.4); Eosinophils Percent Auto 1.7 % (0-4); Hematocrit 34.8 % (42.0-52.0); Hemoglobin 11.5 g/dl (14.0-18.0); Imm Gran Abs Auto 0.23 X10*3/uL (0.00-0.03); Imm Gran Pct Auto 3.3 % (0.0-0.4); Lymphocytes Absolute Auto 0.7 X10*3/uL (1.2-4.9); Lymphocytes Percent Auto 10.4 % (20-40); Mean Corpuscular Hemoglobin 31.5 pg (27.0-33.0); Mean Corpuscular Volume 95.3 fL (80.0-98.0); Mean Platelet Volume 9.7 fL (9.4-12.4); Monocytes Absolute Auto 0.9 X10*3/uL (0.1-1.2); Monocytes Percent Auto 13.4 % (2-11); Neutrophils Absolute Auto 4.9 x10*3/uL (2.0-8.3); Neutrophils Percent Auto 70.3 % (45-73); Platelet Count 162 X10*3/uL (160-400); Red Blood Count 3.65 X10*6/uL (4.60-5.80)
[2024-04-25 08:40] LABS: Alanine Aminotransferase 20 U/L (0-40); Albumin Level 3.4 g/dL (3.5-5.0); Alkaline Phosphatase 104 U/L (39-117); Anion Gap 15 (12-20); Aspartate Amino Transferase 24 U/L (5-37); Blood Urea Nitrogen 61 mg/dL (9-16); Calcium 9.1 mg/dL (8.4-10.2); Carbon Dioxide 23 mmol/L (22-29); Chloride 98 mmol/L (96-108); Creatinine Clr Calc Pharmacy 37.1; Estimated Glomerular Filt Rate 38; Glucose Fasting 82 mg/dL (60-99); Potassium 3.9 mmol/L (3.3-5.1); Sodium 132 mmol/L (135-145); Total Protein 6.2 g/dL (6.5-8.0)
[2024-04-25] MEDS: 0.9 % Sodium Chloride Flush 3 ML SYRINGE IVFLUSH ×2 (09:24→21:53)
[2024-04-25] MEDS: Apixaban 2.5 MG TABLET PO ×2 (09:25→21:53)
[2024-04-25] MEDS: cefTRIAXone sodium 1 GM VIAL IVPUSH (09:25)
[2024-04-25] MEDS: Amiodarone HCL 200 MG TABLET 400 MG PO (09:25)
--- NOTE | 2024-04-25 10:54 | MHC.CM.PN ---
Per ROUNDS discussion, Patient is not yet medically cleared for dc (IV Ceftriaxone, Lasix drip); Patient wishes to go home with services and CM will continue to follow.
--- NOTE | 2024-04-25 15:12 | P.PNIM_ITS ---
Subjective Subjective Date of Service: 04/25/24 Interval History: No acute issues overnight. Remains afebrile Review of Systems Denies chest pain Denies shortness of breath Denies nausea vomiting diarrhea Denies fever chills Physical Exam 2 Vital Signs: Vital Signs: Last Vital Signs Temp 97.5 F 04/25/24 11:17 Pulse 60 04/25/24 12:24 Resp 18 04/25/24 11:17 BP 107/58 L 04/25/24 12:24 Pulse Ox 95 04/25/24 12:24 O2 Del Method Room Air 04/25/24 11:17 FiO2 21 04/21/24 02:00 BMI result Body Mass Index 35.7 Const: Other: Awake alert no acute distress Resp: Other: Clear to auscultation bilaterally no rales rhonchi or wheezes Cardio: Other: No S4; positive S1-S2; no S3 murmurs rubs or gallops GI: Other: Soft nontender nondistended normoactive bowel sounds Extrem: Other: No edema in bilateral Objective Data Active Medications Acetaminophen (Acetaminophen 325 Mg Tablet) 650 mg PO Q6H PRN PRN Reason: Pain, Moderate(Pain Scale 4-6) Last Admin: 04/23/24 02:03 Dose: 650 mg Documented By: MARV Amiodarone HCl (Amiodarone Hcl 200 Mg Tablet) 400 mg PO DAILY [facility] Last Admin: 04/25/24 09:25 Dose: 400 mg Documented By: MARCIAL Apixaban (Apixaban 2.5 Mg Tablet) 2.5 mg PO BID [facility] Last Admin: 04/25/24 09:25 Dose: 2.5 mg Documented By: MARCIAL Ceftriaxone Sodium (Ceftriaxone Sodium 1 Gm Vial) 1 gm IVPUSH Q24H [facility] Last Admin: 04/25/24 09:25 Dose: 1 gm Documented By: MARCIAL Furosemide 200 mg/ Sodium (Chloride) 100 mls @ 2.5 mls/hr IVCONT .Q24H [facility] Last Admin: 04/25/24 09:48 Dose: Not Given Documented By: MARCIAL Non-Admin Reason: Physician Approved Sodium Chloride (0.9 % Sodium Chloride Flush 3 Ml Syringe) 3 ml IVFLUSH QSHIFT [facility] Last Admin: 04/25/24 09:24 Dose: 3 ml Documented By: MARCIAL Tamsulosin HCl (Tamsulosin Hcl 0.4 Mg Capsule) 0.4 mg PO BEDTIME [facility] Last Admin: 04/24/24 21:05 Dose: 0.4 mg Documented By: RADHA Labs 04/25/24 07:36 04/25/24 07:36 Labs: Laboratory Results - last 24 hr 04/25/24 07:36 MCV 95.3 MCH 31.5 MCHC 33.0 RDW 15.0 Plt Count 162 MPV 9.7 Immature Gran % (Auto) 3.3 H Neut % (Auto) 70.3 Lymph % (Auto) 10.4 L [place] % (Auto) 13.4 H Eos % (Auto) 1.7 Baso % (Auto) 0.9 Lymph # (Auto) 0.7 L [place] # (Auto) 0.9 Eos # (Auto) 0.1 Baso # (Auto) 0.1 Abs Immat Gran (auto) 0.23 H Absolute Neuts (auto) 4.9 Absolute Nucleated RBC 0.000 Nucleated RBC % (auto) 0.0 Anion Gap 15 Estim Creat Clear Calc 37.1 Estimated GFR 38 Fasting Glucose 82 Calcium 9.1 Total Bilirubin 1.0 AST 24 ALT 20 Alkaline Phosphatase 104 Total Protein 6.2 L Albumin 3.4 L Microbiology Microbiology Results: Microbiology 04/19/24 20:47 Blood Culture - Final Blood - Venous No growth after 5 days. Assessment and Plan (1) Bacteremia due to Klebsiella pneumoniae: Status: Acute Plan 83-year-old male past medical history significant for fatty liver, anasarca, hypertension, CHF, atrial fibrillation on Eliquis, status post pacemaker implantation, Kidney disease stage 3, lymphedema, SHALONDA admitted with cellulitis c/b sepsis. Admitted to ICU for pressors but subsequently weaned without issue. Imaging scrotum unremarkable for abscess 1. Scrotal cellulitis (sepsis resolved)/lower extremity cellulitis -ceftriaxone 1 g daily (4) -blood cultures 1/2 Klebsiella sensitive to ceftriaxone -switch to Ceftin upon DC 2. Paroxysmal atrial fibrillation -acceptable rate control on current therapies -amiodarone as ordered -Eliquis 3. Hypertension -acceptable control on current therapies -adjust as indicated Full code Eliquis Requires ongoing hospitalization for IV antibiotics for Klebsiella bacteremia. Quality Stroke Does the patient have a stroke diagnosis?: No VTE Prior VTE?: No VTE Risk Level:: Medical - moderate - high VTE Device Contraindication: N/A - Device Ordered VTE Drug Contraindication: N/A - Med Ordered
[2024-04-25] MEDS: Tamsulosin HCL 0.4 MG CAPSULE PO (21:53)
--- NOTE | 2024-04-25 22:59 | P.CNID_ITS ---
History of Present Illness Data of Consult Service Date: 04/25/24 Requesting physician: Omid Smart Primary Care Provider: Minnie Lowe MD HPI Reason for consult: Klebsiella blood culture He presents with shaking chills morning of admission. He has no other symptoms He remains on IV Ceftriaxone. Review of Systems 2 Review of Systems: Yes all other systems are reviewed and are negative [facility] Past Medical History Medical History SHALONDA (obstructive sleep apnea) Cardiomyopathy Pulmonary hypertension Pacemaker Nonrheumatic tricuspid (valve) insufficiency Chronic right heart failure Current use of anticoagulant therapy Anticoagulated on Coumadin Right rib fracture CHF (congestive heart failure) Nocturnal hypoxemia Peripheral edema Annual physical exam Left tennis elbow Essential hypertension PAF (paroxysmal atrial fibrillation) History of hydrocele Nocturia Bladder outlet obstruction Bladder cancer Prostate cancer Hyperlipidemia HTN (hypertension) Normally functioning cardiac pacemaker present Varicose veins of bilateral lower extremities with other complications Family History Family History Father Cancer Prostate cancer Mother Cancer, Onset Age: 85 Son No problems noted. Daughter No problems noted. Maternal Grandfather No problems noted. Maternal Grandmother No problems noted. Paternal Grandfather No problems noted. Paternal Grandmother No problems noted. Surgical History Surgical History History of hydrocelectomy Hx of varicose vein stripping Hx of subdural hematoma History of phacoemulsification of cataract of both eyes with intraocular lens implantation Hx of cardiac pacemaker Hx of colonoscopy Hx of parathyroidectomy Hx of cystoscopy Social History Social History Household Members: Spouse Housing: House Are you a primary career technical counselor to a significant other at home: No Do you presently have visiting nurse or other home services: No Alcohol intake: current Alcohol intake frequency: holidays/special occasions only Alcohol type: wine Patient Tobacco Use Status: Never used Tobacco e-Cigarette/Vaping Use: Never Used Advance Directives Date on File: 05/02/21 service: No Current occupational status: retired Cognitive needs: No Hearing needs: No Vision needs: Yes Meds Allergies Allergy/AdvReac Type Severity Reaction Status Date / Time No Known Allergies Allergy Verified 04/19/24 16:48 Active Medications: Current Medications Acetaminophen (Acetaminophen 325 Mg Tablet) 650 mg PO Q6H PRN PRN Reason: Pain, Moderate(Pain Scale 4-6) Last Admin: 04/23/24 02:03 Dose: 650 mg Amiodarone HCl (Amiodarone Hcl 200 Mg Tablet) 400 mg PO DAILY [facility] Last Admin: 04/25/24 09:25 Dose: 400 mg Apixaban (Apixaban 2.5 Mg Tablet) 2.5 mg PO BID [facility] Last Admin: 04/25/24 21:53 Dose: 2.5 mg Ceftriaxone Sodium (Ceftriaxone Sodium 1 Gm Vial) 1 gm IVPUSH Q24H [facility] Last Admin: 04/25/24 09:25 Dose: 1 gm Sodium Chloride (0.9 % Sodium Chloride Flush 3 Ml Syringe) 3 ml IVFLUSH QSHIFT [facility] Last Admin: 04/25/24 21:53 Dose: 3 ml Tamsulosin HCl (Tamsulosin Hcl 0.4 Mg Capsule) 0.4 mg PO BEDTIME [facility] Last Admin: 04/25/24 21:53 Dose: 0.4 mg Home Medications ?Medication ?Instructions ?Recorded ?Confirmed ?Last Taken ?Type multivitamin 1 tab PO DAILY 05/12/21 04/20/24 Unknown History calcium carbonate 600 mg-vitamin 1 tab PO DAILY 05/17/23 04/20/24 Unknown History D3 5 mcg (200 unit) tablet cholecalciferol (vitamin D3) 25 25 mcg PO DAILY 05/17/23 04/20/24 Unknown History mcg (1,000 unit) tablet ferrous sulfate 325 mg (65 mg 325 mg PO DAILY 07/11/23 04/20/24 Unknown History iron) tablet acetaminophen 650 mg 650 mg PO BID 04/01/24 04/20/24 Unknown History tablet,extended release (Tylenol 8 Hour) amiodarone 200 mg tablet 200 mg PO DAILY atrial fibrillation 04/01/24 04/20/24 Unknown History furosemide 40 mg tablet 40 mg PO DAILY@1700 04/01/24 04/20/24 Unknown History furosemide 80 mg tablet 80 mg PO DAILY@0900 04/01/24 04/20/24 Unknown History metolazone 2.5 mg tablet 2.5 mg PO MO 04/20/24 04/20/24 Unknown History Physical Exam 2 Vital Signs: Vital Signs: Last Vital Signs Temp 97.6 F 04/25/24 19:29 Pulse 60 04/25/24 19:29 Resp 16 04/25/24 19:29 BP 120/58 L 04/25/24 19:29 Pulse Ox 93 04/25/24 19:29 O2 Del Method Room Air 04/25/24 19:29 FiO2 21 04/21/24 02:00 BMI result Body Mass Index 35.7 Const: General: cooperative HEENT: Head: Yes normal to inspection Face and sinus: Yes normal facial exam Mouth: Normal oral and palatal mucosa present Teeth and gingiva: d entition normal Eyes: General: appearance normal, both eyes and all related structures P upils: Equal, round and reactive pupils present Resp: Effort & Inspection: normal respiratory effort Cardio: Rate: regular rate Rhythm: regular rhythm GI: Palpation (GI): Soft to palpation and nontender : General: Yes no CVA tenderness Back/Spine/Pelvis: Back: no CVA tenderness Skin: General skin exam: no rashes or lesions noted Neuro: General: moves all extremities Cranial nerves: Yes Equal, round and reactive pupils present Extrem: General: Yes normal to inspection Psych: Appearance: grossly normal Results Labs 04/25/24 07:36 04/25/24 07:36 Labs: Short CBC 04/25/24 Range/Units 07:36 WBC 7.0 (4.8-10.8) X10*3/uL Hgb 11.5 L (14.0-18.0) g/dl Hct 34.8 L (42.0-52.0) % Plt Count 162 (160-400) X10*3/uL BMP 04/25/24 07:36 Sodium 132 L Potassium 3.9 Chloride 98 Carbon Dioxide 23 BUN 61 H Creatinine 1.72 H Calcium 9.1 Liver Function 04/25/24 Range/Units 07:36 Total Bilirubin 1.0 (0.0-1.0) mg/dL AST 24 (5-37) U/L ALT 20 (0-40) U/L Alkaline Phosphatase 104 (39-117) U/L Albumin 3.4 L (3.5-5.0) g/dL Microbiology Microbiology Results: Microbiology 04/19/24 20:47 Blood - Venous Blood Culture - Final No growth after 5 days. 11/09/24 20:47 Blood - Venous Blood Culture - Final Klebsiella pneumoniae Assessment and Plan (1) Bacteremia due to Klebsiella pneumoniae: Status: Acute (2) Septic shock: Status: Acute Plan He has Klebsiella,,unknown source. He is tolerating Ceftriaxone Probable idiopathic source. Would give IV Ceftriaxone until improved and then po cephalosporin for 14 days
[2024-04-26 03:49] VITALS: BP 111/59; PULSE 68; RESP 18; TEMP 36.1; O2SAT 94
[2024-04-26 05:51] VITALS: BMI 33.6
[2024-04-26 06:45] LABS: MANUAL DIFF FLAG NO
[2024-04-26 06:49] LABS: Basophils Absolute Auto 0.1 X10*3/uL (0.0-0.2); Basophils Percent Auto 0.8 % (0-2); Hematocrit 33.8 % (42.0-52.0); Hemoglobin 11.1 g/dl (14.0-18.0); Imm Gran Abs Auto 0.25 X10*3/uL (0.00-0.03); Imm Gran Pct Auto 3.9 % (0.0-0.4); Lymphocytes Absolute Auto 0.6 X10*3/uL (1.2-4.9); Lymphocytes Percent Auto 9.3 % (20-40); Mean Corpuscular HGB Conc 32.8 g/dl (31.0-36.0); Mean Corpuscular Hemoglobin 31.4 pg (27.0-33.0); Mean Corpuscular Volume 95.5 fL (80.0-98.0); Mean Platelet Volume 9.6 fL (9.4-12.4); Monocytes Absolute Auto 0.8 X10*3/uL (0.1-1.2); Monocytes Percent Auto 11.8 % (2-11); Neutrophils Absolute Auto 4.7 x10*3/uL (2.0-8.3); Neutrophils Percent Auto 74.2 % (45-73); Platelet Count 171 X10*3/uL (160-400); Red Blood Count 3.54 X10*6/uL (4.60-5.80); Red Cell Distribution Width 14.9 % (11.0-16.0); White Blood Count 6.3 X10*3/uL (4.8-10.8)
[2024-04-26 07:14] LABS: Alanine Aminotransferase 17 U/L (0-40); Albumin Level 3.4 g/dL (3.5-5.0); Alkaline Phosphatase 103 U/L (39-117); Anion Gap 13 (12-20); Aspartate Amino Transferase 25 U/L (5-37); Bilirubin Total 0.9 mg/dL (0.0-1.0); Blood Urea Nitrogen 62 mg/dL (9-16); Calcium 8.8 mg/dL (8.4-10.2); Carbon Dioxide 27 mmol/L (22-29); Chloride 98 mmol/L (96-108); Estimated Glomerular Filt Rate 36; Glucose Fasting 88 mg/dL (60-99); Potassium 3.9 mmol/L (3.3-5.1); Sodium 134 mmol/L (135-145); Total Protein 6.1 g/dL (6.5-8.0)
[2024-04-26 07:40] VITALS: BP 105/58; PULSE 62; RESP 18; TEMP 36.3; O2SAT 92
[2024-04-26] MEDS: Apixaban 2.5 MG TABLET PO (08:59)
[2024-04-26] MEDS: cefTRIAXone sodium 1 GM VIAL IVPUSH (08:59)
[2024-04-26] MEDS: 0.9 % Sodium Chloride Flush 3 ML SYRINGE IVFLUSH (08:59)
[2024-04-26] MEDS: Amiodarone HCL 200 MG TABLET 400 MG PO (09:00)
[2024-04-26 11:39] VITALS: BP 112/65; PULSE 63; RESP 20; TEMP 36.6; O2SAT 94
--- NOTE | 2024-04-26 12:10 | P.DS_ITS ---
DS: Providers Provider Date of Service: 04/26/24 Date of admission: 04/20/24 03:19 Date of discharge: 04/26/24 Primary care physician: Minnie Lowe MD Consults: 04/20/24 05:06 Consult to Wound Care Routine Reason for consultation: cellulitis Has provider been notified: Yes 04/20/24 09:28 Consult to Urology Stat Consulting Provider: Rebekah Walters Reason for consultation: ?Marie's Gangrene Has provider been notified: Yes 04/24/24 15:34 Consult to Infectious Diseases Routine Consulting Provider: [facility] Reason for consultation: / cultures Klebsiella Has provider been notified: Yes DS: Diagnosis Discharge Diagnosis (1) Bacteremia due to Klebsiella pneumoniae: Status: Acute (2) Septic shock: Status: Acute DS: Summary Hospital Course Hospital Course: Mr Funes is a very pleasant 83-year-old male past medical history significant for fatty liver, anasarca, hypertension, CHF, atrial fibrillation on Eliquis, s/p pacemaker implantation, Kidney disease stage 3, lymphedema, SHALONDA who presented to the ER with complaint of chills and fever. He reports pain in the right leg and scrotum. Both legs are weeping. The abdomen, scrotum and legs are chronically swollen. He reports weakness in both legs due to the swelling. He denies any other complaints or concerns. On arrival to the ER, his BP was 128/70, heart rate 74, respiratory rate 19, O2 sat 98% on room air. He was afebrile. Laboratory data significant for no leukocytosis but with a left shift. ? Hemoglobin 12.8, hematocrit 38.3, ESR 31, PT 20.0, INR 1.7, sodium 134, BUN 57, creatinine 1.99, lactic acid 1.9, total bilirubin 2.2, AST 38, ALT 41, alk-phos 140, CRP 1.40, BNP 784. Urinalysis negative. Influenza A&B, RSV, COVID-19 negative. ED course:? while in the emergency room the patient received ceftriaxone 1 g, vancomycin 2 g, albumin, acetaminophen. He became hypotensive and was given a total of 1500 mL IV fluids. He remained hypotensive despite fluid administration and was started on a Levophed drip.? Hospital Course ?Admitted to ICU and subsequently Levophed drip weaned to off. Given extensive edema patient was started on a Lasix drip; patient diuresed well with decrease of edema. Was started on ceftriaxone to treat cellulitis. Urology was consulted and ruled out Marie's gangrene. He was transferred to the floor and subsequently weaned off Lasix drip. At this point his Lasix will be increased to 80 b.i.d. and he will complete a Ceftin course at home. Time Attestation Discharge Coordination Time (in mins): 35 Quality: Safe Use of Opioids Does Pt have an Active Cancer Diagnosis on the Problem List?: No Quality: Stroke Does the patient have a stroke diagnosis?: No Physical Exam Vital Signs: Vital Signs: Last Vital Signs Temp 98 F 04/26/24 11:39 Pulse 63 04/26/24 11:39 Resp 20 04/26/24 11:39 BP 112/65 04/26/24 11:39 Pulse Ox 94 04/26/24 11:39 O2 Del Method Room Air 04/26/24 11:39 FiO2 21 04/21/24 02:00 BMI result Body Mass Index 33.6 Const: Other: Awake alert no acute distress Resp: Other: Clear to auscultation bilaterally no rales rhonchi or wheezes Cardio: Other: No S4; positive S1-S2; no S3 murmurs rubs or gallops GI: Other: Soft nontender nondistended normoactive bowel sounds Extrem: Other: No edema in bilateral DS: Data Data Completed and Pending Completed studies during hospitalization [Text1]: Procedures Insertion of Infusion Device into Superior Vena Cava, Percutaneous Approach (05/17/23) Ultrasonography of Superior Vena Cava, Guidance (05/17/23) Labs on day of discharge: Laboratory Results - last 24 hr 04/26/24 06:05 WBC 6.3 RBC 3.54 L Hgb 11.1 L Hct 33.8 L MCV 95.5 MCH 31.4 MCHC 32.8 RDW 14.9 Plt Count 171 MPV 9.6 Immature Gran % (Auto) 3.9 H Neut % (Auto) 74.2 H Lymph % (Auto) 9.3 L [place] % (Auto) 11.8 H Eos % (Auto) 0.0 Baso % (Auto) 0.8 Lymph # (Auto) 0.6 L [place] # (Auto) 0.8 Eos # (Auto) 0.0 Baso # (Auto) 0.1 Abs Immat Gran (auto) 0.25 H Absolute Neuts (auto) 4.7 Absolute Nucleated RBC 0.000 Nucleated RBC % (auto) 0.0 Sodium 134 L Potassium 3.9 Chloride 98 Carbon Dioxide 27 Anion Gap 13 BUN 62 H Creatinine 1.82 H Estim Creat Clear Calc 34.0 Estimated GFR 36 Fasting Glucose 88 Calcium 8.8 Total Bilirubin 0.9 AST 25 ALT 17 Alkaline Phosphatase 103 Total Protein 6.1 L Albumin 3.4 L Discharge Plan Discharge Anticipated Discharge Date/Time: 04/26/24 11:56 Patient Disposition: Home Health Service Discharge Diagnosis: Klebsiella bacteremia Referrals: Will OTOOLE [Outside] - 1 Week Minnie Lowe MD [Primary Care Provider] - 1 Week Discharge Medications: New Eliquis 2.5 mg Tablet 2.5 mg PO BID Qty: 60 0RF cefuroxime axetil 250 mg tablet 250 mg PO BID 14 Days Qty: 28 0RF Continued tamsulosin 0.4 mg capsule 0.4 mg PO BEDTIME 90 Days Qty: 90 3RF calcium carbonate-vitamin D3 600 mg-5 mcg (200 unit) Tablet 1 tab PO DAILY cholecalciferol (vitamin D3) 25 mcg (1,000 unit) Tablet 25 mcg PO DAILY ferrous sulfate 325 mg (65 mg iron) tablet 325 mg PO DAILY metolazone 2.5 mg Tablet 2.5 mg PO MO potassium chloride 20 mEq tablet extended release 40 meq PO BID 90 Days Qty: 360 2RF multivitamin Tablet 1 tab PO DAILY acetaminophen [Tylenol 8 Hour] 650 mg tablet extended release 650 mg PO BID amiodarone 200 mg tablet 200 mg PO DAILY Changed furosemide 80 mg tablet 80 mg PO 2XD Qty: 60 0RF Discontinued Eliquis 5 mg tablet 5 mg PO BID Qty: 60 5RF Rx Instructions: Dose increased, creatinine 1.27, weight 194 lb furosemide 40 mg tablet 40 mg PO DAILY@1700 Discharge Orders: Discharge Order (Routine); Ordered 04/26/24 Ordered By: Omid Smart Diet: Advance to usual diet Activity on Discharge: As tolerated Stand Alone Forms: Patient Portal Discharge page Print Language: Argentine Care Plan Goals: Resume all medicines as taken prior to hospitalization. Your Lasix has been increased to 80 mg twice daily. Follow up with your PCP next available appointment Health Concerns: Ceftin 250 mg twice daily has been added to your regimen. You need to take this for 14 days Plan of Treatment: Follow up with the PCP/taxation economist as scheduled Assessment: See discharge summary
--- NOTE | 2024-04-26 12:19 | MHC.CM.PN ---
Second IMM given 04/26. Pt is medically cleared for discharge home with new [facility] services, pts will transport him home today.
--- NOTE | 2024-04-26 12:22 | P.F2F_ITS ---
Service Date Service Date: 04/26/24 Encounter Date of encounter: 04/26/24 Reasons for Services Signs and symptoms assessed: Monitor response to changes in medication; home physical therapy Reason for assisted: medication management, medication treatment and teach disease management Reason for physical therapy: home safety and mobility, therapeutic exercises and gait/transfer training Homebound: Leaving the home is medically contraindicated at this time without the asist of a device and/or another person due th the listed conditions above and below. Reason homebound: unsteady gait / fall risk and unable to drive Certification: Based on the above findings, I certify that this patient is confined to the home and needs intermittent assisted care, physical therapy and/or speech therapy, or continues to need occupational therapy. The patient is under my care, and I have initiated the establishment of the plan of care. The patient will be followed by a physician who will periodically review the plan of care. Time Spent With Patient Time: Total time managing care of this patient today ____ minutes.
== END 2024-04-26 14:20 | disposition home health service (06) | DRG 871 ==
LOC: HO.ED 04-20 03:18 → HO.EDOVER 04-20 03:29 → HO.ICU 04-20 03:33 → HO.IMC 04-23 15:11
PROVIDERS: Internal Medicine Critical Care Medicine; Internal Medicine Pulmonary Disease; Physician Assistant; Registered Nurse Community Health; Admitting Provider Nurse Practitioner Family; Emergency Provider Emergency Medicine; PCP Internal Medicine; Visit Provider Hospitalist
DX: A41.9 Sepsis, unspecified organism (principal); R65.21 Severe sepsis with septic shock; L03.115 Cellulitis of right lower limb; E87.1 Hypo-osmolality and hyponatremia; N17.9 Acute kidney failure, unspecified; I13.0 Hypertensive heart and chronic kidney disease with heart failure and stage 1 through stage 4 chronic kidney disease, or unspecified chronic kidney disease; I50.812 Chronic right heart failure; N18.30 Chronic kidney disease, stage 3 unspecified; N49.2 Inflammatory disorders of scrotum; D63.1 Anemia in chronic kidney disease; I89.0 Lymphedema, not elsewhere classified; I27.20 Pulmonary hypertension, unspecified; G47.33 Obstructive sleep apnea (adult) (pediatric); K76.0 Fatty (change of) liver, not elsewhere classified; I48.0 Paroxysmal atrial fibrillation; B96.1 Klebsiella pneumoniae [K. pneumoniae] as the cause of diseases classified elsewhere; Z20.822 Contact with and (suspected) exposure to COVID-19; Z95.0 Presence of cardiac pacemaker; Z79.01 Long term (current) use of anticoagulants; Z79.899 Other long term (current) drug therapy
CPT/HCPCS: 0241U; 36415; 71045; 74176; 76870; 80048; 80053; 80202; 81001; 82040; 82803; 83605; 83735; 83880; 84100; 85025; 85610; 85652; 85730; 86140; 87040; 87077; 87186; 87205; 93005; 93970; 97116; 97162; 97530; 99285; J0282; J0283; J0696; J0736; J1644; J1940; J2543; J3370; J7120; P9047

== ENCOUNTER 2024-04-20 03:19 | Outpatient (BNV) | payer MEDICARE, OTHER, SELFPAY | END 2024-04-20 15:10 | PROVIDERS: Admitting Provider Nurse Practitioner Family; Emergency Provider Emergency Medicine; PCP Internal Medicine; Visit Provider Internal Medicine Cardiovascular Disease | DX: R94.31 Abnormal electrocardiogram [ECG] [EKG] (principal) | CPT/HCPCS: 93010 ==

== ENCOUNTER → 2024-04-20 03:19 | Outpatient (BNV) | payer MEDICARE, OTHER, SELFPAY | PROVIDERS: Admitting Provider Nurse Practitioner Family; Emergency Provider Emergency Medicine; PCP Internal Medicine; Visit Provider Nurse Practitioner Family | DX: A41.9 Sepsis, unspecified organism (principal); N49.2 Inflammatory disorders of scrotum; R60.1 Generalized edema; R60.0 Localized edema | CPT/HCPCS: 99223 ==

== ENCOUNTER → 2024-04-20 03:19 | Outpatient (BNV) | payer MEDICARE, OTHER, SELFPAY | PROVIDERS: Admitting Provider Nurse Practitioner Family; Emergency Provider Emergency Medicine; PCP Internal Medicine; Visit Provider Internal Medicine | DX: R78.81 Bacteremia (principal); A41.9 Sepsis, unspecified organism; B96.1 Klebsiella pneumoniae [K. pneumoniae] as the cause of diseases classified elsewhere; R65.21 Severe sepsis with septic shock | CPT/HCPCS: 99222 ==

== ENCOUNTER → 2024-04-20 03:19 | Outpatient (BNV) | payer MEDICARE, OTHER, SELFPAY | PROVIDERS: Admitting Provider Nurse Practitioner Family; Emergency Provider Emergency Medicine; PCP Internal Medicine; Visit Provider Urology | DX: N49.2 Inflammatory disorders of scrotum (principal); A41.9 Sepsis, unspecified organism; R60.0 Localized edema | CPT/HCPCS: 99222 ==

== ENCOUNTER → 2024-04-20 03:19 | Outpatient (BNV) | payer MEDICARE, OTHER, SELFPAY | PROVIDERS: Admitting Provider Nurse Practitioner Family; Emergency Provider Emergency Medicine; PCP Internal Medicine; Visit Provider Internal Medicine Pulmonary Disease | DX: I48.19 Other persistent atrial fibrillation (principal); A41.9 Sepsis, unspecified organism; L03.115 Cellulitis of right lower limb; N50.89 Other specified disorders of the male genital organs | CPT/HCPCS: 99232; 99291 ==

== ENCOUNTER → 2024-04-20 03:19 | Outpatient (BNV) | payer MEDICARE, OTHER, SELFPAY | PROVIDERS: Admitting Provider Nurse Practitioner Family; Emergency Provider Emergency Medicine; PCP Internal Medicine; Visit Provider Hospitalist | DX: R78.81 Bacteremia (principal); B96.1 Klebsiella pneumoniae [K. pneumoniae] as the cause of diseases classified elsewhere | CPT/HCPCS: 99232; 99239; G0180 ==

== ENCOUNTER 2024-04-29 13:05 | Outpatient (AMB) | payer MEDICARE, OTHER, SELFPAY ==
--- NOTE | 2024-04-29 13:25 | HO.NEPHOV_ITS ---
Vital Signs 04/29/24 13:26 Height 5 ft 8 in Weight 216 lb BMI 32.8 Pulse 60 Pulse Source Pulse Oximeter Pulse Oximetry (%) 93 Oxygen Delivery Method Room Air Intake Visit Reasons: HFU appointment Chief Internal Auditor Required: No Accompanied by: Family/Other Allergies No Known Allergies Allergy (Verified 04/29/24 13:30) Medication List - Last Reconciled 04/29/24 by Dread Justice MD acetaminophen ER (Tylenol 8 Hour) 650 mg PO BID amiodarone 200 mg PO DAILY apixaban (Eliquis) 2.5 mg PO BID calcium carbonate-vitamin D3 600 mg-5 mcg (200 unit) 1 tab PO DAILY cefuroxime axetil 250 mg PO BID 14 days cholecalciferol (vitamin D3) 25 mcg PO DAILY ferrous sulfate 325 mg PO DAILY furosemide 80 mg PO 2XD metolazone 2.5 mg PO MO multivitamin 1 tab PO DAILY potassium chloride ER 40 mEq (2 x 20 mEq) PO BID 90 days tamsulosin 0.4 mg PO BEDTIME 90 days tramadol 25 mg PO Q12H PRN HPI Comments Details: Monica is a pleasant 83-year-old man who has been referred for acute kidney injury and resistant edema He is on escalating dose of 3 diuretics and there has been no improvement in the edema. He has developed JB with contraction alkalosis. Baseline creatinine has been around 1.2 mg/dL which has increased to 2.3 mg/dL Has a history of cardiomyopathy and non rheumatic tricuspid regurgitation. He has a history of atrial fibrillation and currently on anticoagulation. Echocardiogram in 06/30/2023 showed mildly reduced LV ejection fraction of 45- 50%. Moderately dilated right ventricle with moderately reduced RV systolic function Biatrial enlargement with severe left atrial enlargement Moderate elevation of right ventricular systolic pressure. History of bladder cancer and prostate cancer. History of bladder outlet obstruction in the past. He has anemia. 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 Recently hospitalized for septic shock. Continues to have significant edema in legs and scrotum. [facility] Medical History SHALONDA (obstructive sleep apnea) Cardiomyopathy Pulmonary hypertension Pacemaker Nonrheumatic tricuspid (valve) insufficiency Chronic right heart failure Current use of anticoagulant therapy Anticoagulated on Coumadin Right rib fracture CHF (congestive heart failure) Nocturnal hypoxemia Peripheral edema Annual physical exam Left tennis elbow Essential hypertension PAF (paroxysmal atrial fibrillation) History of hydrocele Nocturia Bladder outlet obstruction Bladder cancer Prostate cancer Hyperlipidemia HTN (hypertension) Normally functioning cardiac pacemaker present Varicose veins of bilateral lower extremities with other complications Surgical History History of hydrocelectomy Hx of varicose vein stripping Hx of subdural hematoma History of phacoemulsification of cataract of both eyes with intraocular lens implantation Hx of cardiac pacemaker Hx of colonoscopy Hx of parathyroidectomy Hx of cystoscopy Family History Father Cancer Prostate cancer Mother Cancer, Onset Age: 85 Son No problems noted. Daughter No problems noted. Maternal Grandfather No problems noted. Maternal Grandmother No problems noted. Paternal Grandfather No problems noted. Paternal Grandmother No problems noted. Social History Household Members: Spouse Housing: House Are you a primary resident care director to a significant other at home: No Do you presently have visiting nurse or other home services: No Alcohol intake: current Alcohol intake frequency: holidays/special occasions only Alcohol type: wine Patient Tobacco Use Status: Never used Tobacco e-Cigarette/Vaping Use: Never Used Advance Directives Date on File: 05/02/21 service: No Current occupational status: retired Cognitive needs: No Hearing needs: No Vision needs: Yes Physical Exam Vital Signs: Last Vital Signs Pulse 60 04/29/24 13:26 Pulse Ox 93 04/29/24 13:26 Oxygen Delivery Method Room Air 04/29/24 13:26 BMI result Body Mass Index 32.8 Const General: comfortable; No acute distress Orientation/consciousness: patient oriented x3 Eyes General: appearance normal, both eyes and all related structures Visual Martin: normal visual martin by confrontation Neck Neck: Yes supple and Yes no JVD Resp Effort & Inspection: normal respiratory effort and respiratory effort not decreased Auscultation: rhonchi Cardio Palpation: no palpable S3 and no palpable S4 Heart sounds: no rubs GI Inspection: Yes normal to inspection Palpation (GI): Soft to palpation Percussion: Yes normal to percussion Auscultation: normal bowel sounds General: Yes no CVA tenderness Back/Spine/Pelvis Back: no CVA tenderness Skin General skin exam: no petechiae and no purpura Neuro General: patient oriented x3 and no focal motor deficits Extrem General: No clubbing and Yes edema (Massive edema with weeping leg wounds. Scrotal edema) Results Reviewed Results Reviewed: Conclusions: - 1. Mildly reduced LV ejection fraction 45-50% 2. Moderately dilated right ventricle with moderately reduced RV systolic function 3. Biatrial enlargement with severe left atrial enlargement 4. Mild aortic and mitral regurgitation 5. Moderately elevated right ventricular systolic pressure significantly elevated right atrial pressures 6. No gross pericardial effusion Nephrology Results: Hgb 11.1 g/dl (14.0-18.0) L 04/26/24 WBC 6.3 X10*3/uL (4.8-10.8) 04/26/24 Plt Count 171 X10*3/uL (160-400) 04/26/24 Sodium 134 mmol/L (135-145) L 04/26/24 Potassium 3.9 mmol/L (3.3-5.1) 04/26/24 Chloride 98 mmol/L (96-108) 04/26/24 Carbon Dioxide 27 mmol/L (22-29) 04/26/24 BUN 62 mg/dL (9-16) H 04/26/24 Creatinine 1.82 mg/dL (0.5-1.4) H 04/26/24 Calcium 8.8 mg/dL (8.4-10.2) 04/26/24 Phosphorus 3.6 mg/dL (2.7-4.5) 04/24/24 Urine Protein Negative mg/dL (Neg-Trace) 04/19/24 Assessment & Plan Assessment & Plan (1) Chronic kidney disease, stage 3: Code(s): N18.30 - Chronic kidney disease, stage 3 unspecified Category: Medical Qualifiers: Chronic kidney disease stage 3 subtype: stage 3b (GFR 30-44) Qualified Code(s): N18.32 - Chronic kidney disease, stage 3b (2) JB (acute kidney injury): Code(s): N17.9 - Acute kidney failure, unspecified Category: Medical (3) Monoclonal gammopathy: Code(s): D47.2 - Monoclonal gammopathy Category: Medical (4) JB (acute kidney injury): Code(s): N17.9 - Acute kidney failure, unspecified Category: Medical (5) Bladder outlet obstruction: Code(s): N32.0 - Bladder-neck obstruction Category: Medical Plan Jung has acute kidney injury with resistant edema in the setting of right heart failure. 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 Obstructive uropathy should certainly be ruled out given the history of bladder cancer and bladder outlet obstruction Massive lower extremity and scrotal edema primarily due to right heart failure. Recommendations Stay on low-sodium diet Keep current diuretics for the time being. I will arrange for a kidney biopsy in view of the monoclonal gammopathy and positive p-ANCA. Avoid NSAIDs. We will give a trial of tramadol for pain control. Discussed with family. Orders: Orders Prothrombin Time INR Today N17.9 - Acute kidney failure, unspecified, N18.32 - Chronic kidney disease, stage 3b Partial Thromboplastin Time Today N17.9 - Acute kidney failure, unspecified, N18.32 - Chronic kidney disease, stage 3b CT biopsy renal RT Today N17.9 - Acute kidney failure, unspecified, N18.32 - Chronic kidney disease, stage 3b Medications: New tramadol 25 mg PO Q12H PRN 30 tabs 0RF pain Coding Level of Care Code Est Pt Level 4 (70499) Complex EM visit Add On G2211 Diagnoses Stage 3b chronic kidney disease N18.32 Chronic kidney disease stage 3 subtype: stage 3b (GFR 30-44) JB (acute kidney injury) N17.9 Monoclonal gammopathy D47.2 Bladder outlet obstruction N32.0
[2024-04-29 13:26] VITALS: PULSE 60; O2SAT 93; BMI 32.8
== END 2024-04-29 14:06 | disposition home or self-care (01) ==
PROVIDERS: PCP Internal Medicine; Visit Provider Internal Medicine Hypertension Specialist
DX: N17.9 Acute kidney failure, unspecified (principal); N18.32 Chronic kidney disease, stage 3b; D47.2 Monoclonal gammopathy; N32.0 Bladder-neck obstruction
CPT/HCPCS: 99214; G2211

== ENCOUNTER → 2024-04-29 13:05 | Outpatient (BNVA) | payer MEDICARE, OTHER, SELFPAY | PROVIDERS: PCP Internal Medicine; Visit Provider Internal Medicine Hypertension Specialist | DX: N18.32 Chronic kidney disease, stage 3b (principal); N17.9 Acute kidney failure, unspecified; D47.2 Monoclonal gammopathy; N32.0 Bladder-neck obstruction | CPT/HCPCS: 99212 ==

== ENCOUNTER 2024-05-02 09:51 | Outpatient (AMB) | payer MEDICARE, OTHER, SELFPAY ==
--- NOTE | 2024-05-02 09:52 | MHC.OFFVIS ---
Vital Signs 05/02/24 09:53 Height 5 ft 8 in Weight 216 lb BMI 32.8 Intake Visit Reasons: INP-SHALONDA Intake Note: Patient presents for SHALONDA Allergies No Known Allergies Allergy (Verified 05/02/24 09:55) Medication List - Last Reconciled 05/02/24 by Alma Butler PA-C acetaminophen ER (Tylenol 8 Hour) 650 mg PO BID amiodarone 200 mg PO DAILY apixaban (Eliquis) 2.5 mg PO BID calcium carbonate-vitamin D3 600 mg-5 mcg (200 unit) 1 tab PO DAILY cefuroxime axetil 250 mg PO BID 14 days cholecalciferol (vitamin D3) 25 mcg PO DAILY ferrous sulfate 325 mg PO DAILY furosemide 80 mg PO 2XD metolazone 2.5 mg PO MO multivitamin 1 tab PO DAILY potassium chloride ER 40 mEq (2 x 20 mEq) PO BID 90 days tamsulosin 0.4 mg PO BEDTIME 90 days tramadol 25 mg (1/2 x 50 mg) PO Q12H PRN HPI Comments Details: 83 y/o malepresents for new patient sleep evalutaion for further management of known SHALONDA. PMH is notable for : fatty liver, anasarca, lymphedema, hypertension, CHF, atrial fibrillation on Eliquis, s/p pacemaker implantation, Kidney disease stage 3, lymphedema, SHALONDA. Pt had recent [facility] hospital admission for cellulitis of the right leg and scrotum w/ subsequent sepsis/Bacteremia due to Klebsiella pneumoniae. Scheduled for Kidney Biopsy. In terms of pt's sleep, Pt's primary concern is fragmeneted sleep. Pt's most recent PAP compliance report shows non compliance. Pt reports he has not been able to tolerate his BiPAP as the pressure is too strong w/ his lomas face mask. He states he was tried on CPAP with a nasal mask while recently in the hospital and tolerated this much better- pressure setting for this are not known. Pt says he needs to sleep in a recliner upright, and wants to try a nose pillow. September-October 2023 compliance report- Bipap settings: IPAP 03zuC22/EPAP [id number], 20% overall use w/ )% use over 4 hrs (average use when used 43min), AHI was 1.4. Titration was done in Apr 2023, Severe SHALONDA and nocturnal hypoxemia. Titration initiated with 4cm and gradually increased to 15cm, bilevel pressures were used. Gradually increased to 22/18cm. Patient did have persistent nocturnal hypoxemias corrected with O2 supplementation 1L/min Sleep questionnaire- Difficulty falling asleep-yes Difficulty staying asleep-yes Number of arousals- too many to list Snoring-yes Witnessed apneas-yes Gasping arousals-yes Nocturia-yes wears diapers GERD-yes Vivid dreams-no Acting out dreams -no Abnormal behavior in sleep-no ABnormal movements in sleep- always Morning headaches- yes Excessive daytime sleepiness-yes Daytime naps- yes restless legs- yes Hallucinations- no sleep paralysis- no Drop attacks- no Sleep study-yes/ 2022 Results AHI 28 CPAP no Bipap Sleep Hygiene- ? patient wakes and sleeps as tolerated Sleep time- random Wake time - random coffee/stimulant no Phone Electronics no Exercise unable he is in pain Bedroom comfort [facility] Medical History SHALONDA (obstructive sleep apnea) Cardiomyopathy Pulmonary hypertension Pacemaker Nonrheumatic tricuspid (valve) insufficiency Chronic right heart failure Current use of anticoagulant therapy Anticoagulated on Coumadin Right rib fracture CHF (congestive heart failure) Nocturnal hypoxemia Peripheral edema Annual physical exam Left tennis elbow Essential hypertension PAF (paroxysmal atrial fibrillation) History of hydrocele Nocturia Bladder outlet obstruction Bladder cancer Prostate cancer Hyperlipidemia HTN (hypertension) Normally functioning cardiac pacemaker present Varicose veins of bilateral lower extremities with other complications Surgical History History of hydrocelectomy Hx of varicose vein stripping Hx of subdural hematoma History of phacoemulsification of cataract of both eyes with intraocular lens implantation Hx of cardiac pacemaker Hx of colonoscopy Hx of parathyroidectomy Hx of cystoscopy Family History Father Cancer Prostate cancer Mother Cancer, Onset Age: 85 Son No problems noted. Daughter No problems noted. Maternal Grandfather No problems noted. Maternal Grandmother No problems noted. Paternal Grandfather No problems noted. Paternal Grandmother No problems noted. Social History Household Members: Spouse Housing: House Are you a primary insurance healthcare consultant to a significant other at home: No Do you presently have visiting nurse or other home services: No Alcohol intake: current Alcohol intake frequency: holidays/special occasions only Alcohol type: wine Patient Tobacco Use Status: Never used Tobacco e-Cigarette/Vaping Use: Never Used Advance Directives Date on File: 05/02/21 service: No Current occupational status: retired Cognitive needs: No Hearing needs: No Vision needs: Yes Review of Systems Const Reports as per HPI Physical Exam Vital Signs: BMI result Body Mass Index 32.8 Const General: cooperative, no acute distress and tired appearing Nutritional Appearance: average body habitus Orientation/consciousness: patient oriented x3 Limitations: ambulation with walker HEENT Face and sinus: Yes normal facial exam and Yes face symmetric Eyes General: appearance normal, both eyes and all related structures Pupils: Equal, round and reactive pupils present Neck Neck: Yes full ROM Resp Effort & Inspection: normal respiratory effort and able to speak in complete sentences Neuro Other: Gait- slow to stand, wide-based d/t scrotal swelling, steady w/ walker. General: patient oriented x3 Cranial nerves: Yes CN's II-XII intact bilaterally, Yes Facial sensation intact/muscles of mastication intact, Yes Equal, round and reactive pupils present, Yes Normal accommodation reflex present, Yes Midline tongue present, Yes Symmetric palate elevation present, Yes Ability to bilaterally rotate head present and Yes Ability to bilaterally elevate shoulders present Motor exam (neuro): Other motor observations present (unable to assess motor strength / tone pt unable to tolerate d/t LE edema) Sensory Exam: Abnormal lower extremity sensory exam Results Reviewed Results Reviewed: Titration Report 04/2023- 22/18cm on 1L supplemental O2- bilevel cpap- heated humidification. CPAP Compliance 10/2023 EKG Labs US scrotal Assessment & Plan Assessment & Plan (1) SHALONDA (obstructive sleep apnea): Comment: This 83 years old gentleman is a known case of obstructive sleep apnea . He has had CPAP titration study in the sleep lab, He was found to have rather severe obstructive sleep apnea and requiring high pressure ( BIPAP of 22/18 CMs ) along with O2 1 L/minute. HE TRIED HIS BEST AND COULD NOT USE THE CPAP OR BIPAP. Code(s): G47.33 - Obstructive sleep apnea (adult) (pediatric) Category: Medical (2) Hypersomnia: Code(s): G47.10 - Hypersomnia, unspecified Category: Medical Plan Pt has been non-compliant w/ BiPAP for > 90 days, will need repeat sleep study to requalify for PAP tx. Per Dr Membreno's last note- pt has not qualified for home supplemental O2. Will send him for in-lab PSG w/ split night PAP titration for AHI > 25/hr, w/ patient to sleep in his usual sleep position w/ his head inclined to 35-45 degree according to patient comfort. Pt would prefer to use nasal mask and heated humidification if able. Continue all home medications during night of the study. F/u w/ pulmonology as scheduled. Will follow-up upon review of above and patient to follow-up in clinic in 3-4 months or sooner prn. Pt seen by Alma CLARK in coordination w/ myself SKIP Kwon, I agree with the above documentation and plan. Orders: Orders RT PSG in-lab sleep study 05/02/24 G47.30 - Sleep apnea, unspecified, G47.33 - Obstructive sleep apnea (adult) (pediatric) Coding Level of Care Code New Pt Level 4 (01061) Diagnoses SHALONDA (obstructive sleep apnea) G47.33 Hypersomnia G47.10
[2024-05-02 09:53] VITALS: BMI 32.8
== END 2024-05-02 13:28 | disposition home or self-care (01) ==
PROVIDERS: PCP Internal Medicine; Visit Provider Physician Assistant Medical
DX: G47.33 Obstructive sleep apnea (adult) (pediatric) (principal); G47.10 Hypersomnia, unspecified
CPT/HCPCS: 99203

== ENCOUNTER → 2024-05-02 09:51 | Outpatient (BNVA) | payer MEDICARE, OTHER, SELFPAY | PROVIDERS: PCP Internal Medicine; Visit Provider Nurse Practitioner Family | DX: G47.33 Obstructive sleep apnea (adult) (pediatric) (principal); G47.10 Hypersomnia, unspecified; Z99.89 Dependence on other enabling machines and devices; Z91.199 Patient's noncompliance with other medical treatment and regimen due to unspecified reason | CPT/HCPCS: 99202 ==

== ENCOUNTER 2024-05-13 10:17 | Outpatient (REF) | payer MEDICARE, OTHER, SELFPAY ==
--- OUTSIDE RECORDS SUMMARY | 2024-05-20 12:27 | XMS_ITS | Patient Health Record ---
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 Name Role Phone HAZEL DAVIS MD Primary Care Provider Chago De La Cruz Unavailable [phone] Allergies Allergen (clinical drug ingredient) Drug/Non Drug Allergy documented on EMR Reaction Allergy Type Onset Date Status No Known Drug Allergy Unknown Drug Allergy Active Results Component Value Reference Range Notes Complete Blood Count Auto Di ff Reviewed date:07/01/2023 08:43:36 AM Interpretation: Performing Lab:[facility], [address] [place] [phone] Notes/Report: White Blood Count 7.0 4.8-10.8 X10*3/uL Red Blood Count 3.54 4.60-5.80 X10*6/uL Hemoglobin 10.3 14.0-18.0 g/dl Hematocrit 33.8 42.0-52.0 % Mean Corpuscular Volume 95.5 80.0-98.0 fL Mean Corpuscular Hemoglobin 29.1 27.0-33.0 pg Mean Corpuscular HGB Conc 30.5 31.0-36.0 g/dl Red Cell Distribution Width 16.7 11.0-16.0 % Platelet Count 240 160-400 X10*3/uL Mean Platelet Volume 11.0 9.4-12.4 fL Neutrophils Percent Auto 65.8 45-73 % Imm Gran Pct Auto 0.3 0.0-0.4 % Lymphocytes Percent Auto 21.4 20-40 % Monocytes Percent Auto 11.4 2-11 % Eosinophils Percent Auto 0.0 0-4 % Basophils Percent Auto 1.1 0-2 % NRBC Pct Auto 0.0 0.0-0.2 /100WBC Neutrophils Absolute Auto 4.6 2.0-8.3 x10*3/u L Imm Gran Abs Auto 0.02 0.00-0.03 X10*3/uL Lymphocytes Absolute Auto 1.5 1.2-4.9 X10*3/u L Monocytes Absolute Auto 0.8 0.1-1.2 X10*3/uL Eosinophils Absolute Auto 0.0 0.0-0.4 X10*3/u L Basophils Absolute Auto 0.1 0.0-0.2 X10*3/uL NRBC Abs Auto 0.000 0.0-0.012 X10*3/uL Comprehensive Granite. Panel Fa st Reviewed date:07/01/2023 08:43:36 AM Interpretation: Performing Lab:[facility], [address] [place] [phone] Notes/Report: Sodium 145 135-145 mmol/L Potassium 3.3 3.3-5.1 mmol/L Chloride 104 96-108 mmol/L Carbon Dioxide 30 22-29 mmol/L Anion Gap 14 12-20 Blood Urea Nitrogen 25 9-16 mg/dL Creatinine 1.20 0.5-1.4 mg/dL Estimated Glomerular Filt Rate 58 NOTE: For -Gabonese individuals, multiply the result by 1.210. Chronic Kidney Disease: Estimated GFR < 60 mL/min/1.73m2 Severe Kidney Disease: Estimated GFR < 15 mL/min/1.73m2 Glucose Fasting 104 60-99 mg/dL A fasting glucose from 100-125 mg/dl is considered impaired (pre-diabetes). Calcium 9.0 8.4-10.2 mg/dL Bilirubin Total 1.0 0.0-1.0 mg/dL Aspartate Amino Transferase 21 5-37 U/L Alanine Aminotransferase 15 0-40 U/L Total Protein 7.1 6.5-8.0 g/dL Albumin Level 3.6 3.5-5.0 g/dL Alkaline Phosphatase 128 39-117 U/L Lipid Panel Reviewed date:07/01/2023 08:43:36 AM Interpretation: Performing Lab:[facility], [address] [place] [phone] Notes/Report: Triglycerides 82 <150 mg/dL Desirable Triglyceride: less than 150 mg/dL Borderline High Triglyceride 150-199 mg/dL High Triglyceride: 200-499 mg/dL Very High Triglyceride: greater than or equal to 5OO mg/dL Cholesterol 148 <200 mg/dL Desirable Cholesterol: less than 200 mg/dL Borderline High Cholesterol: 200-239 mg/dL High Cholesterol: greater than 239 mg/dL LDL Cholesterol Calculated 75 <100 mg/dL Desirable LDL: less than 100 mg/dL Near Optimal/Above Optimal LDL: 110-129 mg/dL Borderline High LDL: 130-159 mg/dL High LDL: 160-189 mg/dL Very High LDL: greater than or equal to 190 mg/dL HDL Cholesterol 57 >40 mg/dL Desirable HDL: greater than 40 mg/dL Note: This HDL assay may give artificially low results in patients with liver disease. Prostate Specific Antigen Reviewed date:07/01/2023 08:43:36 AM Interpretation: Performing Lab:[facility], [address] [place] [phone] Notes/Report: Prostate Specific Antigen 0.11 <0.05-4.0 ng/mL PSA methodology: [employer] i Chemiluminescent Microparticle Immunoassay (CMIA) Nichols/Lambda Lt Ch,Free w ra t Reviewed date:07/06/2023 11:22:43 AM Interpretation: Performing Lab:[facility], [address] [place] [phone] Notes/Report: Nichols Light Chain, Free Serum 81.7 3.3-19.4 mg/L Lambda Light Chain, Free Serum 38.9 5.7-26.3 mg/L Nichols/Lambda Lt Ch Free Ratio 2.10 0.26-1.65 Free kappa/lambda ratio in serum of normal individuals is 0.26-1.65. Excess production of free kappa or lambda chains can alter this ratio. Monoclonal free light chains are found in serum of patients with multiple myeloma, Waldenstrom's macroglobulinemia, mu-heavy chain disease, primary amyloidosis, light chain deposition disease, monoclonal gammopathy of undetermined significance, and lymphoproliferative disorders. Measurement of free light chain concentration in serum is useful for diagnosis, prognosis, monitoring disease activity and following response to therapy of these disorders. THIS TEST WAS PERFORMED AT: [facility] [address] [place] [phone] MAYRA CONNOLLY MD Nichols/Lambda Light Chain Ser Reviewed date:07/06/2023 11:22:50 AM Interpretation: Performing Lab:[facility], [address] [place] [phone] Notes/Report: Nichols, Serum 330 176-443 mg/dL Lambda, Serum 194 91-240 mg/dL Nichols/Lambda Ratio, Serum 1.70 1.29-2.55 This assay provides a measurement of the total kappa and the total lambda light chains, ie., the amount of free (unattached) light chain in circulation and the amount of light chain linked to heavy chain in intact immunoglobulin molecules. Assays for serum free light chain only, kappa and lambda with ratio, may be more useful in evaluating and managing light chain gammopathies including those associated with myeloma, lymphoproliferative disorders, and amyloidosis. THIS TEST WAS PERFORMED AT: [facility] [address] [place] [address] MONTANA COLLINS MD,PHD,RED Protein Electrophoresis, [facility] Reviewed date:07/03/2023 04:14:26 AM Interpretation: Performing Lab:[facility], [address] [place] [phone] Notes/Report: Prot Elec - Total Protein 6.5 6.1-8.1 g/dL Prot Elec - Albumin 3.3 3.8-4.8 g/dL Prot Elec - Alpha1 0.4 0.2-0.3 g/dL Prot Elec - Alpha2 0.8 0.5-0.9 g/dL Prot Elec - Beta 1 0.4 0.4-0.6 g/dL Prot Elec - Beta 2 0.3 0.2-0.5 g/dL Prot Elec - Gamma 1.4 0.8-1.7 g/dL PES - Abn Protein Band 1 0.3 NONE DETECTED g/ dL PES-Abn Protein Band 2 TNP PES-Abn Protein Band 3 TNP Prot Elec - Interpretation SEE NOTE Evaluation reveals a restricted band (M-spike) migrating in the gamma globulin region. If not already requested, Immunofixation should be considered. THIS TEST WAS PERFORMED AT: [facility] [address] [phone] MAYRA CONNOLLY MD Complete Blood Count Auto Di ff Reviewed date:11/02/2023 11:07:48 AM Interpretation: Performing Lab:[facility], [address] [place] [phone] Notes/Report: White Blood Count 6.5 4.8-10.8 X10*3/uL Red Blood Count 4.64 4.60-5.80 X10*6/uL Hemoglobin 13.3 14.0-18.0 g/dl Hematocrit 41.9 42.0-52.0 % Mean Corpuscular Volume 90.3 80.0-98.0 fL Mean Corpuscular Hemoglobin 28.7 27.0-33.0 pg Mean Corpuscular HGB Conc 31.7 31.0-36.0 g/dl Red Cell Distribution Width 19.2 11.0-16.0 % Platelet Count 208 160-400 X10*3/uL Mean Platelet Volume 10.5 9.4-12.4 fL Neutrophils Percent Auto 64.7 45-73 % Imm Gran Pct Auto 0.6 0.0-0.4 % Lymphocytes Percent Auto 20.1 20-40 % Monocytes Percent Auto 13.7 2-11 % Eosinophils Percent Auto 0.0 0-4 % Basophils Percent Auto 0.9 0-2 % NRBC Pct Auto 0.0 0.0-0.2 /100WBC Neutrophils Absolute Auto 4.2 2.0-8.3 x10*3/u L Imm Gran Abs Auto 0.04 0.00-0.03 X10*3/uL Lymphocytes Absolute Auto 1.3 1.2-4.9 X10*3/u L Monocytes Absolute Auto 0.9 0.1-1.2 X10*3/uL Eosinophils Absolute Auto 0.0 0.0-0.4 X10*3/u L Basophils Absolute Auto 0.1 0.0-0.2 X10*3/uL NRBC Abs Auto 0.000 0.0-0.012 X10*3/uL Comprehensive Granite. Panel Fa st Reviewed date:11/02/2023 11:07:48 AM Interpretation: Performing Lab:[facility], [address] [place] [phone] Notes/Report: Sodium 141 135-145 mmol/L Potassium 4.1 3.3-5.1 mmol/L Chloride 101 96-108 mmol/L Carbon Dioxide 31 22-29 mmol/L Anion Gap 13 12-20 Blood Urea Nitrogen 49 9-16 mg/dL Creatinine 1.35 0.5-1.4 mg/dL Estimated Glomerular Filt Rate 50 NOTE: For -Gabonese individuals, multiply the result by 1.210. Chronic Kidney Disease: Estimated GFR < 60 mL/min/1.73m2 Severe Kidney Disease: Estimated GFR < 15 mL/min/1.73m2 Glucose Fasting 107 60-99 mg/dL A fasting glucose from 100-125 mg/dl is considered impaired (pre-diabetes). Calcium 9.8 8.4-10.2 mg/dL Bilirubin Total 1.3 0.0-1.0 mg/dL Aspartate Amino Transferase 29 5-37 U/L Alanine Aminotransferase 25 0-40 U/L Total Protein 7.9 6.5-8.0 g/dL Albumin Level 3.7 3.5-5.0 g/dL Alkaline Phosphatase 117 39-117 U/L Lipid Panel Reviewed date:11/02/2023 11:07:48 AM Interpretation: Performing Lab:[facility], [address] [place] [phone] Notes/Report: Triglycerides 76 <150 mg/dL Desirable Triglyceride: less than 150 mg/dL Borderline High Triglyceride 150-199 mg/dL High Triglyceride: 200-499 mg/dL Very High Triglyceride: greater than or equal to 5OO mg/dL Cholesterol 151 <200 mg/dL Desirable Cholesterol: less than 200 mg/dL Borderline High Cholesterol: 200-239 mg/dL High Cholesterol: greater than 239 mg/dL LDL Cholesterol Calculated 73 <100 mg/dL Desirable LDL: less than 100 mg/dL Near Optimal/Above Optimal LDL: 110-129 mg/dL Borderline High LDL: 130-159 mg/dL High LDL: 160-189 mg/dL Very High LDL: greater than or equal to 190 mg/dL HDL Cholesterol 63 >40 mg/dL Desirable HDL: greater than 40 mg/dL Note: This HDL assay may give artificially low results in patients with liver disease. Prostate Specific Antigen Reviewed date:11/02/2023 11:07:48 AM Interpretation: Performing Lab:[address] [phone] Notes/Report: Prostate Specific Antigen < 0.10 <0.05-4.0 ng/mL PSA methodology: Isaac Alinity i Chemiluminescent Microparticle Immunoassay (CMIA) Nichols/Lambda Lt Ch,Free w ra t Reviewed date:01/27/2024 09:04:55 AM Interpretation: Performing Lab:[facility], [address] [place] [phone] Notes/Report: Nichols Light Chain, Free Serum 116.2 3.3-19.4 mg/L Lambda Light Chain, Free Serum 40.2 5.7-26.3 mg/L Nichols/Lambda Lt Ch Free Ratio 2.89 0.26-1.65 Free kappa/lambda ratio in serum of normal individuals is 0.26-1.65. Excess production of free kappa or lambda chains can alter this ratio. Monoclonal free light chains are found in serum of patients with multiple myeloma, Waldenstrom's macroglobulinemia, mu-heavy chain disease, primary amyloidosis, light chain deposition disease, monoclonal gammopathy of undetermined significance, and lymphoproliferative disorders. Measurement of free light chain concentration in serum is useful for diagnosis, prognosis, monitoring disease activity and following response to therapy of these disorders. THIS TEST WAS PERFORMED AT: [facility] [address] [place] [phone] MAYRA CONNOLLY MD Nichols/Lambda Light Chain Ser um Reviewed date:01/27/2024 09:04:55 AM Interpretation: Performing Lab:[facility], [address] [place] [phone] Notes/Report: Nichols, Serum 439 176-443 mg/dL Lambda, Serum 236 91-240 mg/dL Nichols/Lambda Ratio, Serum 1.86 1.29-2.55 This assay provides a measurement of the total kappa and the total lambda light chains, ie., the amount of free (unattached) light chain in circulation and the amount of light chain linked to heavy chain in intact immunoglobulin molecules. Assays for serum free light chain only, kappa and lambda with ratio, may be more useful in evaluating and managing light chain gammopathies including those associated with myeloma, lymphoproliferative disorders, and amyloidosis. THIS TEST WAS PERFORMED AT: [facility] [address] [place] [address] MONTANA COLLINS MD,PHD,RED Protein Electrophoresis, Ser um Reviewed date:11/06/2023 11:23:04 AM Interpretation: Performing Lab:[facility], [address] [place] [phone] Notes/Report: Prot Elec - Total Protein 7.3 6.1-8.1 g/dL Prot Elec - Albumin 3.7 3.8-4.8 g/dL Prot Elec - Alpha1 0.3 0.2-0.3 g/dL Prot Elec - Alpha2 0.7 0.5-0.9 g/dL Prot Elec - Beta 1 0.4 0.4-0.6 g/dL Prot Elec - Beta 2 0.4 0.2-0.5 g/dL Prot Elec - Gamma 1.8 0.8-1.7 g/dL PES - Abn Protein Band 1 0.3 NONE DETECTED g/ dL PES-Abn Protein Band 2 TNP PES-Abn Protein Band 3 TNP Prot Elec - Interpretation SEE NOTE Evaluation reveals a restricted band (M-spike) migrating in the gamma globulin region. If not already requested, Immunofixation should be considered. THIS TEST WAS PERFORMED AT: [facility] [address] [place] [phone] MAYRA CONNOLLY MD Immunofixation Pnl, Serum Reviewed date:11/06/2023 11:23:04 AM Interpretation: Performing Lab:[facility], [address] [place] [phone] Notes/Report: IgG 2023 600-1540 mg/dL IgA 196 70-320 mg/dL IgM 109 50-300 mg/dL THIS TEST WAS PERFORMED AT: [facility] [address] [place] [phone] MAYRA CONNOLLY MD Immunofixation Interpretation SEE NOTE IgG lambda monoclona l band present. Prostate Specific Antigen Reviewed date:02/27/2024 06:40:50 AM Interpretation: Performing Lab:[address] [phone] Notes/Report: Prostate Specific Antigen < 0.10 <0.05-4.0 ng/mL PSA methodology: [employer] i Chemiluminescent Microparticle Immunoassay (CMIA) Reason For Referral No Information Medications Medication SIG (Take, Route, Frequency, Duration) Notes Start Date End Date Status Potassium Chloride ER 20 MEQ 2 tablets with food Orally Twice a day Active Spironolactone 25 MG TAKE 1 TABLET BY MOUTH DAILY Oral Active Acetaminophen 650 MG 1 tablet as needed Orally every 6 hrs Active Eliquis 5 MG as directed Orally Twice a day Active Iron 65 MG 1 tablet Orally Three times a Week Active Calcium + Vitamin D3 600-5 MG-MCG 1 tablet with a meal Orally Once a day Active Multivitamins Orally Active Flomax 0.4 MG 1 capsule Orally once in the evening Active Furosemide 40 MG 1 tablet Orally Twice a day every other day Active metOLazone 2.5 MG 1 tablet Orally Mondays Active Vitamin D3 25 MCG (1000 UT) 1 capsule Orally Once a day Active Amiodarone HCl 200 MG TAKE 2 TABLETS TWI CE A DAY FOR 14 DAYS, THEN REDUCE DOSE TO 1 TABLET DAILY Oral Active Social History Tobacco Use: Social History Observation Description Date Details (start date - stop date) Never Smoker NA - NA Tobacco Use/Smoking Question Answer Notes Patient is a nonsmoker Additional Findings: Tobacco Non-User Aggressive non-smoker Alcohol Screen Question Answer Notes Did you have a drink contain ing alcohol in the past year? Yes How often did you have a dri nk containing alcohol in the past year? Monthly or less (1 point) How many drinks did you have on a typical day when you were drinking in the past year? 1 or 2 drinks (0 point) How often did you have 6 or more drinks on one occasion in the past year? Never (0 point) Points 1 Interpretation Negative Problems Problem Type SNOMED Code ICD Code Onset Dates Problem Status W/U Status Risk Notes Problem 0194180 Former smoker (Z87.891) Active confirmed He has a plan to prevent relapse and times of stress or illness. Problem Obesity (800642485) Obesity (E66.9) Active confirmed Problem Malignant tumor of prostate (030222453) Malignant neoplasm of prostate (C61) Active confirmed His P and 6 and a is stable and not rising. There was no sign of prostate cancer or urothelial carcinoma on today's examination. Problem Malignant tumor of urinary bladder (514476366) Malignant neoplasm of bladder, unspecified (C67.9) Active confirmed There was no sign at this time of metastatic or recurrent bbladder cancer. Problem Monoclonal gammopathy (64939919) Monoclonal gammopathy (D47.2) Active confirmed His IgG is 1193 which is stable. The kappa lambda ratio is 37.6. His total protein is 7.1. He is stable at this time. Problem Obesity (378459192) Other obesity (E66.8) Active confirmed His body mass index is 36. Both legs are edematous. We discussed the elements of a sodium restricted, weight loss diet. Problem Obesity (484088633) Obesity, unspecified (E66.9) Active confirmed He has gained 17 pounds almost all of which is fluid retention. His diuretic was increased by cardiology recently. Problem Other male erectile dysfunction (N52.8) Active confirmed Thiss issue has been addressed with medication. Problem Benign prostatic hypertrophy without outflow obstruction (179631160) Benign prostatic hyperplasia without lower urinary tract symptoms (N40.0) Active confirmed He has been rising from sleep twice a night. This is partly due to his diuretic. We discussed lifestyle modification as a way of reducing nocturnal urination. He is switching his urology care to [facility]. Records will be forwarded. Vital Signs Heart Rate 69 /min 03/04/2024 Temperature 98.6 degrees Fahrenheit 03/04/2024 Blood pressure diastolic 70 mm Hg 03/04/2024 Height 63 in 03/04/2024 Blood pressure systolic 111 mm Hg 03/04/2024 Weight 206 lbs 03/04/2024 BMI 36.49 kg/m2 03/04/2024 Encounters Encounter Location Date Provider Diagnosis Chago Peres III, MD [address] [place] [address] [place] [address] 07/06/2023 Chago Peres Benign prostatic hyperplasia without lower urinary tract symptoms N40.0 ; Other male erectile dysfunction N52.8 ; Other obesity E66.8 ; Monoclonal gammopathy D47.2 ; Malignant neoplasm of bladder, unspecified C67.9 and Malignant neoplasm of prostate C61 Chago Peres III, MD [address] [place] [address] [place] [address] 11/06/2023 Chago Peres Benign prostatic hyperplasia without lower urinary tract symptoms N40.0 ; Monoclonal gammopathy D47.2 ; Malignant neoplasm of prostate C61 ; Malignant neoplasm of bladder, unspecified C67.9 ; Other male erectile dysfunction N52.8 ; Former smoker Z87.891 ; Obesity 278.00 and Peripheral edema R60.9 Chago ePres III, MD [address] [place] [address] [place] [address] 03/04/2024 Chago Peres Benign prostatic hyperplasia without lower urinary tract symptoms N40.0 ; Monoclonal gammopathy D47.2 ; Malignant neoplasm of prostate C61 ; Obesity, unspecified E66.9 ; Former smoker Z87.891 and Peripheral edema R60.9 Assessments Encounter Date Diagnosis (ICD Code) Assessment Notes Treatment Notes Treatment Clinical Notes 07/06/2023 Other male erectile dysfunction (ICD-10 - N52.8) Thiss issue has been addressed with medication. 07/06/2023 Benign prostatic hyperplasia without lower urinary tract symptoms (ICD-10 - N40.0) He has been rising from sleep twice a night. This is partly due to his diuretic. We discussed lifestyle modification as a way of reducing nocturnal urination. He is switching his urology care to [facility]. Records will be forwarded. 11/06/2023 Monoclonal gammopathy (ICD-10 - D47.2) The IgG level has increased but the abnormal protein on serum protein electrophoresis has remained stable at 0.3 g/dL. 11/06/2023 Benign prostatic hyperplasia without lower urinary tract symptoms (ICD-10 - N40.0) He has been rising from sleep twice a night. This is partly due to his diuretic. We discussed lifestyle modification as a way of reducing nocturnal urination. He is switching his urology care to [facility]. Records will be forwarded. 03/04/2024 Monoclonal gammopathy (ICD-10 - D47.2) His IgG is 1193 which is stable. The kappa lambda ratio is 37.6. His total protein is 7.1. He is stable at this time. 03/04/2024 Benign prostatic hyperplasia without lower urinary tract symptoms (ICD-10 - N40.0) He has been rising from sleep twice a night. This is partly due to his diuretic. We discussed lifestyle modification as a way of reducing nocturnal urination. He is switching his urology care to [facility]. Records will be forwarded. 07/06/2023 Other obesity (ICD-10 - E66.8) His body mass index is 36. Both legs are edematous. We discussed the elements of a sodium restricted, weight loss diet. 11/06/2023 Malignant neoplasm of prostate (ICD-10 - C61) His PSA remains nondetectable. 03/04/2024 Malignant neoplasm of prostate (ICD-10 - C61) His P and 6 and a is stable and not rising. There was no sign of prostate cancer or urothelial carcinoma on today's examination. 07/06/2023 Monoclonal gammopathy (ICD-10 - D47.2) His immunologic studies and total protein and immunofixation are stable. This will be observed carefully. 11/06/2023 Malignant neoplasm of bladder, unspecified (ICD-10 - C67.9) There was no sign at this time of metastatic or recurrent bbladder cancer. 03/04/2024 Obesity, unspecified (ICD-10 - E66.9) He has gained 17 pounds almost all of which is fluid retention. His diuretic was increased by cardiology recently. 07/06/2023 Malignant neoplasm of bladder, unspecified (ICD-10 - C67.9) There was no sign at this time of metastatic or recurrent bbladder cancer. 11/06/2023 Other male erectile dysfunction (ICD-10 - N52.8) Thiss issue has been addressed with medication. 03/04/2024 Former smoker (ICD-10 - Z87.891) He has a plan to prevent relapse and times of stress or illness. 07/06/2023 Malignant neoplasm of prostate (ICD-10 - C61) There was no sign of disease progression on today's examination. 11/06/2023 Former smoker (ICD-10 - Z87.891) He has a plan to prevent relapse and times of stress or illness. 03/04/2024 Peripheral edema (ICD-10 - R60.9) He has gained 17 pounds since his last visit. Most of which is peripheral edema. 11/06/2023 Obesity (ICD9-CM - 278.00) He remains in the obese range but has lost 18 pounds since June 2023, mostly fluid from diuresis. 11/06/2023 Peripheral edema (ICD-10 - R60.9) The peripheral edema has resolved. Plan Of Treatment Pending Test Test Name Order Date PROFILE, FASTING (COMPREHENSIVE METABOLI C) 09/11/2019 PROFILE, FASTING (COMPREHENSIVE METABOLI C) 03/21/2023 PROFILE, FASTING (COMPREHENSIVE METABOLI C) 03/12/2019 PROFILE, FASTING (COMPREHENSIVE METABOLI C) 11/17/2022 PROFILE, FASTING (COMPREHENSIVE METABOLI C) 09/10/2018 PROFILE, FASTING (COMPREHENSIVE METABOLI C) 07/06/2023 PROFILE, FASTING (COMPREHENSIVE METABOLI C) 10/14/2020 PROFILE, FASTING (COMPREHENSIVE METABOLI C) 09/06/2017 PROFILE, FASTING (COMPREHENSIVE METABOLI C) 03/09/2017 PROFILE, FASTING (COMPREHENSIVE METABOLI C) 09/01/2016 PROFILE, RANDOM (COMPREHENSIVE METABOLIC ) 08/11/2022 PROFILE, RANDOM (COMPREHENSIVE METABOLIC ) 11/06/2023 PROFILE, RANDOM (COMPREHENSIVE METABOLIC ) 04/15/2020 PROFILE, RANDOM (COMPREHENSIVE METABOLIC ) 12/11/2019 PROFILE, RANDOM (COMPREHENSIVE METABOLIC ) 09/08/2022 PROFILE, RANDOM (COMPREHENSIVE METABOLIC ) 02/17/2021 PROFILE, RANDOM (COMPREHENSIVE METABOLIC ) 02/11/2016 PROFILE, RANDOM (COMPREHENSIVE METABOLIC ) 03/04/2024 PROFILE, RANDOM (COMPREHENSIVE METABOLIC ) 08/18/2021 PROFILE, RANDOM (COMPREHENSIVE METABOLIC ) 03/03/2022 PROFILE, RANDOM (COMPREHENSIVE METABOLIC ) 03/12/2018 LIPID PANEL 10/14/2020 LIPID PANEL 09/06/2017 LIPID PANEL 03/09/2017 LIPID PANEL 09/01/2016 LIPID PANEL 09/11/2019 LIPID PANEL 03/12/2019 LIPID PANEL 12/11/2019 LIPID PANEL 11/17/2022 LIPID PANEL 09/10/2018 LDH 09/11/2019 BRAIN NATRIURETIC PEPTIDE (BNP) 08/12/19 23 PSA, TOTAL 10/14/2020 PSA, TOTAL 09/06/2017 PSA, TOTAL 03/09/2017 PSA, TOTAL 09/01/2016 PSA, TOTAL 11/06/2023 PSA, TOTAL 03/21/2023 PSA, TOTAL 08/11/2022 PSA, TOTAL 03/04/2024 PSA, TOTAL 12/11/2019 PSA, TOTAL 09/11/2019 PSA, TOTAL 09/10/2018 PSA, TOTAL 07/06/2023 PSA, TOTAL 03/12/2018 CBC w DIFF 09/10/2018 CBC w DIFF 03/12/2018 CBC w DIFF 09/06/2017 CBC w DIFF 10/14/2020 CBC w DIFF 04/15/2020 CBC w DIFF 03/09/2017 CBC w DIFF 09/08/2022 CBC w DIFF 02/17/2021 CBC w DIFF 09/01/2016 CBC w DIFF 11/06/2023 CBC w DIFF 02/11/2016 CBC w DIFF 03/21/2023 CBC w DIFF 08/11/2022 CBC w DIFF 03/12/2019 CBC w DIFF 11/17/2022 CBC w DIFF 08/18/2021 CBC w DIFF 12/11/2019 CBC w DIFF 03/03/2022 CBC w DIFF 09/11/2019 SED RATE (ESR) 11/17/2022 IMMUNOFIXATION PANEL, SERUM (IEP) 2021 IMMUNOFIXATION PANEL, SERUM (IEP) 2019 IMMUNOFIXATION PANEL, SERUM (IEP) 2023 IMMUNOFIXATION PANEL, SERUM (IEP) 2019 IMMUNOFIXATION PANEL, SERUM (IEP) 2017 IMMUNOFIXATION PANEL, SERUM (IEP) 2017 IMMUNOFIXATION PANEL, SERUM (IEP) 2020 IMMUNOFIXATION PANEL, SERUM (IEP) 2019 IMMUNOFIXATION PANEL, SERUM (IEP) 2016 IMMUNOFIXATION PANEL, SERUM (IEP) 2022 IMMUNOFIXATION PANEL, SERUM (IEP) 2020 IMMUNOFIXATION PANEL, SERUM (IEP) 2016 IMMUNOFIXATION PANEL, SERUM (IEP) 2023 IMMUNOFIXATION PANEL, SERUM (IEP) 2015 IMMUNOFIXATION PANEL, SERUM (IEP) 2022 IMMUNOFIXATION PANEL, SERUM (IEP) 2018 IMMUNOFIXATION PANEL, SERUM (IEP) 2023 PROTEIN ELECTROPHORESIS, SERUM 3 PROTEIN ELECTROPHORESIS, SERUM 4 PROTEIN ELECTROPHORESIS, SERUM 2 PROTEIN ELECTROPHORESIS, SERUM 1 PROTEIN ELECTROPHORESIS, SERUM 3 PROTEIN ELECTROPHORESIS, SERUM 3 PROTEIN ELECTROPHORESIS, SERUM 1 PROTEIN ELECTROPHORESIS, SERUM 4 BETA-2 MICROGLOBULIN, SERUM 03/12/2019 BETA-2 MICROGLOBULIN, SERUM 02/17/2021 IMMUNOFIXATION PANEL RAND UR (IEP) 03/21 FREE KAPPA LAMBDA, SERUM K/L RATIO 09/08 FREE KAPPA LAMBDA, SERUM K/L RATIO 03/03 FREE KAPPA LAMBDA, SERUM K/L RATIO 11/05 FREE KAPPA LAMBDA, SERUM K/L RATIO 03/21 FREE KAPPA LAMBDA, SERUM K/L RATIO 02/17 FREE KAPPA LAMBDA, SERUM K/L RATIO 07/06 FREE KAPPA LAMBDA, SERUM K/L RATIO 08/18 FREE KAPPA LAMBDA, SERUM K/L RATIO 08/11 FREE KAPPA LAMBDA, SERUM K/L RATIO 10/14 KAPPA LAMBDA SER 08/11/2022 KAPPA LAMBDA SER 10/14/2020 KAPPA LAMBDA SER 09/08/2022 KAPPA LAMBDA SER 03/03/2022 KAPPA LAMBDA SER 11/06/2023 KAPPA LAMBDA SER 03/21/2023 KAPPA LAMBDA SER 02/17/2021 KAPPA LAMBDA SER 07/06/2023 KAPPA LAMBDA SER 08/18/2021 CBC WITH AUTO DIFF 03/04/2024 CBC WITH AUTO DIFF 07/06/2023 Lipid Panel 03/21/2023 Lipid Panel 07/06/2023 Beta-2 Microglobulin, Serum 03/03/2022 Protein Electrophoresis, Serum Protein Electrophoresis, Serum Immunofixation Pnl, Serum 03/03/2022 Next Appt Details Provider Name:Chago Peres, 07/04/2024 11:00:00 AM, [address] [place] [address] DR, [facility], [place], [address], Insurance Providers Payer Name Payer Address Payer Phone Subscriber Number Group Number Insured Name Patient Relationship to Insured Coverage Start Date Coverage End Date MEDICARE NGS [address] [place] [phone] [id number] Jung Funes Self - patient is the insured [address] [place] [phone] [id number] Jung Funes Self - patient is the insured Medical (General) History Medical History History ICD Code benign prostatic hyperplasia (BPH) erectile dysfunction MGUS bladder cancer prostate cancer Surgical History Surgery Date(Month/Year) Vericose veins removal 02/2019
--- OUTSIDE RECORDS SUMMARY | 2024-05-20 12:27 | XMS_ITS ---
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 Name Role Phone HAZEL DAVIS MD Primary Care Provider Chago De La Cruz [facility] [phone] Allergies Allergen (clinical drug ingredient) Drug/Non Drug Allergy documented on EMR Reaction Allergy Type Onset Date Status No Known Drug Allergy Unknown Drug Allergy Active REASON FOR VISIT MGUS, Bladdder cancer, Prostate cancer Medications Medication SIG (Take, Route, Frequency, Duration) Notes Start Date End Date Status Furosemide 80 MG 1 tablet Orally Once a day every other day Active Amlodipine & Diet Manage Prod 2.5 MG 1 Tablet Orally Once a day Active Vitamin D 500 1 capsule Orally Once a day Active Flomax 0.4 MG 1 capsule 30 minutes after the same meal each day Orally Once a day Active Calcium Carbonate 500 MG 1 tablet Orally Once a day Active Multivitamins Orally Active Lisinopril 40 MG 1 tablet Orally Once a day Active Viagra 100 MG 1 tablet as needed Orally as needed Active Warfarin Sodium 5 MG 1 tablet Orally Onc e a day Active Social History Tobacco Use: Social History Observation Description Date Details (start date - stop date) Never Smoker NA - NA Tobacco Use/Smoking Question Answer Notes Patient is a nonsmoker Additional Findings: Tobacco Non-User Aggressive non-smoker Vital Signs Temperature 98.6 degrees Fahrenheit 07/06/19 24 Blood pressure systolic 110 mm Hg 07/06/19 24 Blood pressure diastolic 70 mm Hg 024 Heart Rate 92 /min 07/06/2023 Height 63 in 07/06/2023 Weight 207 lbs 07/06/2023 BMI 36.66 kg/m2 07/06/2023 Encounters Encounter Location Date Provider Diagnosis Chago Peres III, MD [address] [place] [address] [place] [address] 07/06/2023 Chago Peres Benign prostatic hyperplasia without lower urinary tract symptoms N40.0 ; Other male erectile dysfunction N52.8 ; Other obesity E66.8 ; Monoclonal gammopathy D47.2 ; Malignant neoplasm of bladder, unspecified C67.9 and Malignant neoplasm of prostate C61 Assessments Encounter Date Diagnosis (ICD Code) Assessment Notes Treatment Notes Treatment Clinical Notes 07/06/2023 Benign prostatic hyperplasia without lower urinary tract symptoms (ICD-10 - N40.0) He has been rising from sleep twice a night. This is partly due to his diuretic. We discussed lifestyle modification as a way of reducing nocturnal urination. He is switching his urology care to [facility]. Records will be forwarded. 07/06/2023 Other male erectile dysfunction (ICD-10 - N52.8) Thiss issue has been addressed with medication. 07/06/2023 Other obesity (ICD-10 - E66.8) His body mass index is 36. Both legs are edematous. We discussed the elements of a sodium restricted, weight loss diet. 07/06/2023 Monoclonal gammopathy (ICD-10 - D47.2) His immunologic studies and total protein and immunofixation are stable. This will be observed carefully. 07/06/2023 Malignant neoplasm of bladder, unspecified (ICD-10 - C67.9) There was no sign at this time of metastatic or recurrent bbladder cancer. 07/06/2023 Malignant neoplasm of prostate (ICD-10 - C61) There was no sign of disease progression on today's examination. Plan Of Treatment Medication Medication Name Sig Start Date Stop Date Notes Furosemide 80 MG 1 tablet Orally Once a day every other day Amlodipine & Diet Manage Prod 2.5 MG 1 Tablet Orally Once a day Vitamin D 500 1 capsule Orally Onc e a day Flomax 0.4 MG 1 capsule 30 minutes after the same meal each day Orally Once a day Calcium Carbonate 500 MG 1 tablet Orally Once a day Multivitamins Orally Lisinopril 40 MG 1 tablet Orally Once a day Viagra 100 MG 1 tablet as needed Orally as needed Warfarin Sodium 5 MG 1 tablet Orally Onc e a day Pending Test Test Name Order Date PROFILE, FASTING (COMPREHENSIVE METABOLI C) 07/06/2023 PSA, TOTAL 07/06/2023 IMMUNOFIXATION PANEL, SERUM (IEP) 2023 FREE KAPPA LAMBDA, SERUM K/L RATIO 07/06 KAPPA LAMBDA SER 07/06/2023 CBC WITH AUTO DIFF 07/06/2023 Lipid Panel 07/06/2023 Protein Electrophoresis, Serum Next Appt Details Follow Up: 4 Months, Reason: OV Provider Name:Chago Peres, 07/04/2024 11:00:00 AM, [address] [place] [address] DR [facility] [place], [place], [phone], Progress Notes * Jung FUNES CDOB:[birth year] (83 yo M)Acc No.[id number]:07/06/2023 Progress Notes Patient:?Jung Funes Provider:?Chago Peres MD :[id number]???Age:83 Y???Sex:Male Gagan e:07/06/2023 Address:[address] [place] [address], [phone] Pcp:HAZEL DAVIS MD Subjective: * Chief Complaints: * ???MGUSBladdder cancerProsta te cancer * HPI: ???COVID-19 Screening:?Questions?Have you experienced fever, chills, cough, sore throat, shortness of breath, difficulty breathing, muscle aches, loss of taste or smell??No ?Have you been exposed to the virus within the last 10 days??No ?Have you travelled internationally in the last 10 days??No ?Have you been exposed to COVID-19 in the past??No ? He wwas recently in the [facility] for 33 days for cardiovascular issues. He is seeing Dr. Davis as an outpatient, having been to cardiology recently. His peripheral edema is present but minor at this point. He has been compliant with all his medications. He has had numerous imaging done but no sign of malignancy has been found. His blood work was reviewed with him and immunologic studies were ordered. He seems medically stable at this time. * ROS:?General/Constitutional:?pain?only normal aches and pains.?Chills?denies.?Fatigue?admits.?Fever?denies.?ENT:?Decreased hearing?in both ears.?Respiratory:?Cough?denies.?Cardiovascular:?Chest pain with exertion?denies.?Dyspnea on exertion?denies.?Shortness of breath?denies.?Gastrointestinal:?Constipation?occasional.?Decreased appetite?denies.?Diarrhea?denies.?Heartburn?denies.?Nausea?denies.?Rectal bleeding?denies.?Vomiting?denies.?Hematology:?bruising?denies.?petechiae?denies.?Swollen glands?none have been noted.?Genitourinary:?Frequent urination?twice a night.?Musculoskeletal:?Muscle aches?denies.?Painful joints?denies.?Sciatica?denies.?Weakness?denies.?Skin:?Itching?denies.?Rash?denies.?Skin lesion(s)?denies.?Neurologic:?Difficulty speaking?denies.?Dizziness?denies.?Headache?denies.?Low back pain?denies.?Psychiatric:?Depressed mood?which is mild.? * Medical History:? * Surgical History:?Vericose v eins removal 02/2019 * Hospitalization/Major Diagno stic Procedure:?Denies Past Hospitalization * Family History:?Father: dece ased 62 yrs, myocardial infarction, prostate cancer, diagnosed with Cancer.?Mother: 101 yrs, macular degeneration.?Spouse: alive 68 yrs, hypotensive.?1 son(s) , 1 daughter(s) . .? He has no brothers or sisters. He is not aware of any family history of substance abuse or addiction or mental illness. * Social History:?Tobacco Use:?Tobacco Use/Smoking?Patient is a?nonsmoker ?Additional Findings: Tobacco Non-User?Aggressive non-smoker * Medications:?TakingFurosemid e 80 MG Tablet 1 tablet Orally Once a dayAmlodipine & Diet Manage Prod 2.5 MG Tablet 1 Tablet Orally Once a dayCalcium Carbonate 500 MG Tablet Chewable 1 tablet Orally Once a dayLisinopril 40 MG Tablet 1 tablet Orally Once a dayMultivitamins Capsule Orally Warfarin Sodium 5 MG Tablet 1 tablet Orally Once a dayViagra 100 MG Tablet 1 tablet as needed Orally as neededFlomax 0.4 MG Capsule 1 capsule 30 minutes after the same meal each day Orally Once a dayVitamin D 500 Capsule 1 capsule Orally Once a dayTaking Furosemide 80 MG Tablet 1 tablet Orally Once a dayTaking Amlodipine & Diet Manage Prod 2.5 MG Tablet 1 Tablet Orally Once a dayTaking Calcium Carbonate 500 MG Tablet Chewable 1 tablet Orally Once a dayTaking Lisinopril 40 MG Tablet 1 tablet Orally Once a dayTaking Multivitamins Capsule Orally Taking Warfarin Sodium 5 MG Tablet 1 tablet Orally Once a dayTaking Viagra 100 MG Tablet 1 tablet as needed Orally as neededTaking Flomax 0.4 MG Capsule 1 capsule 30 minutes after the same meal each day Orally Once a dayTaking Vitamin D 500 Capsule 1 capsule Orally Once a dayDiscontinuedBetimol 0.5 % Solution 1 drop into affected eye Ophthalmic Once a dayBetimol 0.5 % Solution 1 drop into affected eye Ophthalmic Once a dayMedication List reviewed and reconciled with the patientDiscontinued Betimol 0.5 % Solution 1 drop into affected eye Ophthalmic Once a dayDiscontinued Betimol 0.5 % Solution 1 drop into affected eye Ophthalmic Once a dayMedication List reviewed and reconciled with the patient * Allergies:?No Known Drug All ergyno[Allergies Verified] Objective: * Vitals:?Ht: 63, Wt:207, BMI: 36.66, BP:110/70, HR:92, Temp:98.6, Wt-k.89. * ???Past Orders: Lab:Lipid Panel * Order Date 06/28/2023 01/25/2023 02/11/2021 Triglycerides 82 (Ref Range: <150 mg/dL) 96 (Ref Range: mg/dL) 74 (Ref Range: mg/dL) Cholesterol 148 (Ref Range: <200 mg/dL) 171 (Ref Range: mg/dL) 179 (Ref Range: mg/dL) LDL Cholesterol Calculated 75 (Ref Range: <100 mg/dL) 100 (Ref Range: mg/dl) 98 (Ref Range: mg/dl) HDL Cholesterol 57 (Ref Range: >40 mg/dL) 52 (Ref Range: mg/dL) 67 (Ref Range: mg/dL) * Lab:Prostate Specific Antige n * Order Date 06/28/2023 08/11/2022 02/11/2021 Prostate Specific Antigen 0.11 (Ref Range: <0.05-4.0 ng/mL) < 0.10 (Ref Range: <0.05-4.0 ng/mL) 0.09 (Ref Range: <0.05-4.0 ng/mL) * Lab:Protein Electrophoresis, Serum * Order Date 06/28/2023 11/08/2022 08/11/2022 Prot Elec - Total Protein 6.5 (Ref Range: 6.1-8.1 g/dL) 6.9 (Ref Range: 6.1-8.1 g/dL) 6.4 (Ref Range: 6.1-8.1 g/dL) Prot Elec - Albumin 3.3?A (Ref Range: 3.8-4.8 g/dL) 3.8 (Ref Range: 3.8-4.8 g/dL) 3.6?A (Ref Range: 3.8-4.8 g/dL) Prot Elec - Alpha1 0.4?A (Ref Range: 0.2-0.3 g/dL) 0.3 (Ref Range: 0.2-0.3 g/dL) 0.3 (Ref Range: 0.2-0.3 g/dL) Prot Elec - Alpha2 0.8 (Ref Range: 0.5-0.9 g/dL) 0.7 (Ref Range: 0.5-0.9 g/dL) 0.6 (Ref Range: 0.5-0.9 g/dL) Prot Elec - Beta 1 0.4 (Ref Range: 0.4-0.6 g/dL) 0.5 (Ref Range: 0.4-0.6 g/dL) 0.4 (Ref Range: 0.4-0.6 g/dL) Prot Elec - Beta 2 0.3 (Ref Range: 0.2-0.5 g/dL) 0.3 (Ref Range: 0.2-0.5 g/dL) 0.3 (Ref Range: 0.2-0.5 g/dL) Prot Elec - Gamma 1.4 (Ref Range: 0.8-1.7 g/dL) 1.5 (Ref Range: 0.8-1.7 g/dL) 1.3 (Ref Range: 0.8-1.7 g/dL) PES - Abn Protein Band 1 0.3?A (Ref Range: NONE DETECTED g/dL) 0.3?A (Ref Range: NONE DETECTED g/dL) 0.4?A (Ref Range: NONE DETECTED g/dL) PES-Abn Protein Band 2 TNP TNP TNP PES-Abn Protein Band 3 TNP TNP TNP Prot Elec - Interpretation SEE NOTE SEE NOTE SEE NOTE * Lab:Complete Blood Count Aut o Diff * Order Date 06/28/2023 01/25/2023 11/08/2022 White Blood Count 7.0 (Ref Range: 4.8-10.8 X10*3/uL) 8.3 (Ref Range: 4.8-10.8 X10*3/uL) 5.7 (Ref Range: 4.8-10.8 X10*3/uL) Red Blood Count 3.54?L (Ref Range: 4.60-5.80 X10*6/uL) 4.16?L (Ref Range: 4.60-5.80 X10*6/uL) 4.64 (Ref Range: 4.60-5.80 X10*6/uL) Hemoglobin 10.3?L (Ref Range: 14.0-18.0 g/dl) 12.6?L (Ref Range: 14.0-18.0 g/dl) 13.8?L (Ref Range: 14.0-18.0 g/dl) Hematocrit 33.8?L (Ref Range: 42.0-52.0 %) 38.3?L (Ref Range: 42.0-52.0 %) 42.8 (Ref Range: 42.0-52.0 %) Mean Corpuscular Volume 95.5 (Ref Range: 80.0-98.0 fL) 92.1 (Ref Range: 80.0-98.0 fL) 92.2 (Ref Range: 80.0-98.0 fL) Mean Corpuscular Hemoglobin 29.1 (Ref Range: 27.0-33.0 pg) 30.3 (Ref Range: 27.0-33.0 pg) 29.7 (Ref Range: 27.0-33.0 pg) Mean Corpuscular HGB Conc 30.5?L (Ref Range: 31.0-36.0 g/dl) 32.9 (Ref Range: 31.0-36.0 g/dl) 32.2 (Ref Range: 31.0-36.0 g/dl) Red Cell Distribution Width 16.7?H (Ref Range: 11.0-16.0 %) 13.8 (Ref Range: 11.0-16.0 %) 14.1 (Ref Range: 11.0-16.0 %) Platelet Count 240 (Ref Range: 160-400 X10*3/uL) 199 (Ref Range: 160-400 X10*3/uL) 154?L (Ref Range: 160-400 X10*3/uL) Mean Platelet Volume 11.0 (Ref Range: 9.4-12.4 fL) 11.0 (Ref Range: 9.4-12.4 fL) 11.2 (Ref Range: 9.4-12.4 fL) Neutrophils Percent Auto 65.8 (Ref Range: 45-73 %) 72.3 (Ref Range: 45-73 %) 57.9 (Ref Range: 45-73 %) Imm Gran Pct Auto 0.3 (Ref Range: 0.0-0.4 %) 0.6?H (Ref Range: 0.0-0.4 %) 0.4 (Ref Range: 0.0-0.4 %) Lymphocytes Percent Auto 21.4 (Ref Range: 20-40 %) 13.2?L (Ref Range: 20-40 %) 27.9 (Ref Range: 20-40 %) Monocytes Percent Auto 11.4?H (Ref Range: 2-11 %) 13.2?H (Ref Range: 2-11 %) 10.6 (Ref Range: 2-11 %) Eosinophils Percent Auto 0.0 (Ref Range: 0-4 %) 0.0 (Ref Range: 0-4 %) 2.5 (Ref Range: 0-4 %) Basophils Percent Auto 1.1 (Ref Range: 0-2 %) 0.7 (Ref Range: 0-2 %) 0.7 (Ref Range: 0-2 %) NRBC Pct Auto 0.0 (Ref Range: 0.0-0.2 /100WBC) 0.0 (Ref Range: 0.0-0.2 /100WBC) 0.0 (Ref Range: 0.0-0.2 /100WBC) Neutrophils Absolute Auto 4.6 (Ref Range: 2.0-8.3 x10*3/uL) 6.0 (Ref Range: 2.0-8.3 x10*3/uL) 3.3 (Ref Range: 2.0-8.3 x10*3/uL) Imm Gran Abs Auto 0.02 (Ref Range: 0.00-0.03 X10*3/uL) 0.05?H (Ref Range: 0.00-0.03 X10*3/uL) 0.02 (Ref Range: 0.00-0.03 X10*3/uL) Lymphocytes Absolute Auto 1.5 (Ref Range: 1.2-4.9 X10*3/uL) 1.1?L (Ref Range: 1.2-4.9 X10*3/uL) 1.6 (Ref Range: 1.2-4.9 X10*3/uL) Monocytes Absolute Auto 0.8 (Ref Range: 0.1-1.2 X10*3/uL) 1.1 (Ref Range: 0.1-1.2 X10*3/uL) 0.6 (Ref Range: 0.1-1.2 X10*3/uL) Eosinophils Absolute Auto 0.0 (Ref Range: 0.0-0.4 X10*3/uL) 0.0 (Ref Range: 0.0-0.4 X10*3/uL) 0.1 (Ref Range: 0.0-0.4 X10*3/uL) Basophils Absolute Auto 0.1 (Ref Range: 0.0-0.2 X10*3/uL) 0.1 (Ref Range: 0.0-0.2 X10*3/uL) 0.0 (Ref Range: 0.0-0.2 X10*3/uL) NRBC Abs Auto 0.000 (Ref Range: 0.0-0.012 X10*3/uL) 0.000 (Ref Range: 0.0-0.012 X10*3/uL) 0.000 (Ref Range: 0.0-0.012 X10*3/uL) * Lab:Aliyah Oro. Jg l Fast * Order Date 06/28/2023 01/25/2023 02/11/2021 Sodium 145 (Ref Range: 135-145 mmol/L) 141 (Ref Range: 135-145 mmol/L) 141 (Ref Range: 135-145 mmol/L) Bilirubin Total 1.0 (Ref Range: 0.0-1.0 mg/dL) 0.9 (Ref Range: 0.0-1.0 mg/dL) 1.1?H (Ref Range: 0.0-1.0 mg/dL) Aspartate Amino Transferase 21 (Ref Range: 5-37 U/L) 22 (Ref Range: 5-37 U/L) 22 (Ref Range: 5-37 U/L) Alanine Aminotransferase 15 (Ref Range: 0-40 U/L) 19 (Ref Range: 0-40 U/L) 20 (Ref Range: 0-40 U/L) Total Protein 7.1 (Ref Range: 6.5-8.0 g/dL) 7.3 (Ref Range: 6.5-8.0 g/dL) 6.7 (Ref Range: 6.5-8.0 g/dL) Albumin Level 3.6 (Ref Range: 3.5-5.0 g/dL) 3.8 (Ref Range: 3.5-5.0 g/dL) 4.1 (Ref Range: 3.5-5.0 g/dL) Alkaline Phosphatase 128?H (Ref Range: 39-117 U/L) 113 (Ref Range: 39-117 U/L) 79 (Ref Range: 39-117 U/L) Potassium 3.3 (Ref Range: 3.3-5.1 mmol/L) 4.4 (Ref Range: 3.3-5.1 mmol/L) 4.1 (Ref Range: 3.3-5.1 mmol/L) Chloride 104 (Ref Range: 96-108 mmol/L) 106 (Ref Range: 96-108 mmol/L) 108 (Ref Range: 96-108 mmol/L) Carbon Dioxide 30?H (Ref Range: 22-29 mmol/L) 27 (Ref Range: 22-29 mmol/L) 26 (Ref Range: 22-29 mmol/L) Anion Gap 14 (Ref Range: 12-20) 12 (Ref Range: 12-20) 11?L (Ref Range: 12-20) Blood Urea Nitrogen 25?H (Ref Range: 9-16 mg/dL) 46?H (Ref Range: 9-16 mg/dL) 23?H (Ref Range: 9-16 mg/dL) Creatinine 1.20 (Ref Range: 0.5-1.4 mg/dL) 1.38 (Ref Range: 0.5-1.4 mg/dL) 0.93 (Ref Range: 0.5-1.4 mg/dL) Estimated Glomerular Filt Rate 58 49 > 60 Glucose Fasting 104?H (Ref Range: 60-99 mg/dL) 81 (Ref Range: 60-99 mg/dL) 89 (Ref Range: 60-99 mg/dL) Calcium 9.0 (Ref Range: 8.4-10.2 mg/dL) 9.6 (Ref Range: 8.4-10.2 mg/dL) 9.2 (Ref Range: 8.4-10.2 mg/dL) * Lab:[place]/Lambda Lt Ch,Free w rat * Order Date 06/28/2023 11/08/2022 08/11/2022 [place] Light Chain, Free Serum 81.7?A (Ref Range: 3.3-19.4 mg/L) 54.6?A (Ref Range: 3.3-19.4 mg/L) 58.4?A (Ref Range: 3.3-19.4 mg/L) Lambda Light Chain, Free Serum 38.9?A (Ref Range: 5.7-26.3 mg/L) 27.9?A (Ref Range: 5.7-26.3 mg/L) 31.8?A (Ref Range: 5.7-26.3 mg/L) [place]/Lambda Lt Ch Free Ratio 2.10?A (Ref Range: 0.26-1.65) 1.96?A (Ref Range: 0.26-1.65) 1.84?A (Ref Range: 0.26-1.65) * Lab:[place]/Lambda Light Chain Serum * Order Date 06/28/2023 11/08/2022 08/11/2022 [place], Serum 330 (Ref Range: 176-443 mg/dL) 276 (Ref Range: 176-443 mg/dL) 301 (Ref Range: 176-443 mg/dL) Lambda, Serum 194 (Ref Range: 91-240 mg/dL) 203 (Ref Range: 91-240 mg/dL) 218 (Ref Range: 91-240 mg/dL) [place]/Lambda Ratio, Serum 1.70 (Ref Range: 1.29-2.55) 1.36 (Ref Range: 1.29-2.55) 1.38 (Ref Range: 1.29-2.55) * Examination: ???General Examination: ?GENERAL APPEARANCE:?pleasant, well nourished, well developed, in no acute distress, calm and relaxed , obese?elderly man.?HEAD:?atraumatic, normocephalic.?EYES:?eomi, perrla, anicteric, conjugate.?EARS:?normal.?NOSE:?septum intact.?ORAL CAVITY:?normal, unremarkable.?NECK/THYROID:?no jugular venous distention, no carotid bruit, thyroid normal.?LYMPH NODES:?no enlarged lymph nodes,spleen normal.?SKIN:?no suspicious lesions, anicteric.?HEART:?no clicks, gallops, murmurs, or rubs, regular rhythm, S1, S2 normal, no s3, or vascular bruits.?LUNGS:?clear to auscultation .?BREASTS:??no masses palpable bilaterally.?ABDOMEN:?bowel sounds normal, no ascites, no organomegaly, no mass , centripital obesity.?RECTAL EXAM:?not examined.?MUSCULOSKELETAL:?Pitting edema senior care up to the knees.?PERIPHERAL PULSES:?normal.?NEUROLOGIC:?alert and oriented, cranial nerves 2-12 grossly intact, deep tendon reflexes 2+ symmetrical, motor strength normal upper and lower extremities, sensory exam intact.?PSYCH:?alert, oriented.? Assessment: * Assessment: 1.?Benign prostatic hyperpla doug without lower urinary tract symptoms - N40.0 (Primary), He has been rising from sleep twice a night. This is partly due to his diuretic. We discussed lifestyle modification as a way of reducing nocturnal urination. He is switching his urology care to [facility]. Records will be forwarded.?2.?Other male erectile dysfunction - N52.8, Thiss issue has been addressed with medication.?3.?Other obesity - E66.8, His body mass index is 36. Both legs are edematous. We discussed the elements of a sodium restricted, weight loss diet. 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 This will be observed carefully.?5.?Malignant neoplasm of bladder, unspecified - C67.9, There was no sign at this time of metastatic or recurrent bbladder cancer.?6.?Malignant neoplasm of prostate - C61, There was no sign of disease progression on today's examination.? Plan: * Treatment: 2.?Other obesity?LAB: PROFILE, FASTING (COMPREHENSIVE METABOLIC) ?LAB: PSA, TOTAL ?LAB: IMMUNOFIXATION PANEL, SERUM (IEP) ?LAB: FREE KAPPA LAMBDA, SERUM K/L RATIO ?LAB: KAPPA LAMBDA SER ?LAB: CBC WITH AUTO DIFF ?LAB: Lipid Panel ?LAB: Protein Electrophoresis, Serum 3.?Monoclonal gammopathy?LAB: PROFILE, FASTING (COMPREHENSIVE METABOLIC) ?LAB: PSA, TOTAL ?LAB: IMMUNOFIXATION PANEL, SERUM (IEP) ?LAB: FREE KAPPA LAMBDA, SERUM K/L RATIO ?LAB: KAPPA LAMBDA SER ?LAB: CBC WITH AUTO DIFF ?LAB: Lipid Panel ?LAB: Protein Electrophoresis, Serum 4.?Malignant neoplasm of loy dder, unspecified?LAB: PROFILE, FASTING (COMPREHENSIVE METABOLIC) ?LAB: PSA, TOTAL ?LAB: IMMUNOFIXATION PANEL, SERUM (IEP) ?LAB: FREE KAPPA LAMBDA, SERUM K/L RATIO ?LAB: KAPPA LAMBDA SER ?LAB: CBC WITH AUTO DIFF ?LAB: Lipid Panel ?LAB: Protein Electrophoresis, Serum * Procedure Codes:? * Preventive Medicine:? ??Counseling:?Care goal follow-up plan:?Counseling for abnormal BMI given?Yes ?Above Normal BMI Follow-up?Dietary management education, guidance, and counseling, Dietary needs education, Exercise promotion: strength training, Exercise promotion: stretching, Feeding regime, Giving encouragement to exercise, Lifestyle education regarding diet, Nutrition / feeding management, Nutrition therapy, Prescribed activity/exercise education, Prescribed diet education, Prescribed dietary intake, Special diet education, Weight monitoring , Intervention, Order not done: Medical or Other reason not done * Follow Up:?4 Months (Reason: OV) * Images: * Sign off status: Completed true * Provider:?Chago Peres MD Date:?06/12 Generated for Printi ng/Daring/eTransmitting on:?05/20/2024 12:26 PM EST History and Physical Notes * HPI (History of Present Illness) Category Sub-Category Detail Notes COVID-19 Screening Questions Have you expe rienced fever, chills, cough, sore throat, shortness of breath, difficulty breathing, muscle aches, loss of taste or smell?: No Have you been exposed to the virus withi n the last 10 days?: No Have you travelled internationally in [facility] last 10 days?: No Have you been exposed to COVID-19 in the past?: No Examination Category Sub-Category Detail Notes General Examination GENERAL APPEARANCE: pleasant , well nourished, well developed, in no acute distress, calm and relaxed , obese elderly man HEAD: atraumatic, normocep halic EYES: eomi, perrla, anicte gwen, conjugate EARS: normal NOSE: septum intact NECK/THYROID: no jugular venous di stention, no carotid bruit, thyroid normal HEART: no clicks, gallops, murmurs, or rubs, regular rhythm, S1, S2 normal, no s3, or vascular bruits LUNGS: clear to auscultatio n ABDOMEN: bowel sounds normal, no ascites, no organomegaly, no mass , centripital obesity NEUROLOGIC: alert and oriented, cranial nerves 2-12 grossly intact, deep tendon reflexes 2+ symmetrical, motor strength normal upper and lower extremities, sensory exam intact SKIN: no suspicious lesion s, anicteric PERIPHERAL PULSES: normal BREASTS: no masses palpable b ilaterally MUSCULOSKELETAL: Pitting edema halfwa y up to the knees LYMPH NODES: no enlarged lymph no shanon,spleen normal RECTAL EXAM: not examined PSYCH: alert, oriented ORAL CAVITY: normal, unremarkable
--- OUTSIDE RECORDS SUMMARY | 2024-05-20 12:27 | XMS_ITS ---
Author Organization Chago Peres III, MD Address [address] [place] [address] Care Team Providers Care House Registry Rn Name Role Phone HAZEL DAVIS MD Primary Care Provider Chago De La Cruz Unavailable [phone] Allergies Allergen (clinical drug ingredient) Drug/Non Drug Allergy documented on EMR Reaction Allergy Type Onset Date Status No Known Drug Allergy Unknown Drug Allergy Active REASON FOR VISIT Peripheral edema, Obesity, Monoclonal gammopathy, Benign prostatic hypertrophy, Bladder cancer, Prostate cancer Medications Medication SIG (Take, Route, Frequency, Duration) Notes Start Date End Date Status Potassium Chloride ER 20 MEQ 2 tablets with food Orally Twice a day Active Spironolactone 25 MG TAKE 1 TABLET BY MOUTH DAILY Oral Active Eliquis 5 MG as directed Orally Twice a day Active metOLazone 2.5 MG 1 tablet Orally Mondays Active Amiodarone HCl 200 MG TAKE 2 TABLETS TW A DAY FOR 14 DAYS, THEN REDUCE DOSE TO 1 TABLET DAILY Oral Active Acetaminophen 650 MG 1 tablet as needed Orally every 6 hrs Active Iron 65 MG 1 tablet Orally Three times a Week Active Calcium + Vitamin D3 600-5 MG-MCG 1 tablet with a meal Orally Once a day Active Multivitamins Orally Active Flomax 0.4 MG 1 capsule Orally once in the evening Active Furosemide 40 MG 1 tablet Orally Twice a day every other day Active Vitamin D3 25 MCG (1000 UT) 1 capsule Orally Once a day Active Social History Tobacco Use: Social History Observation Description Date Details (start date - stop date) Never Smoker NA - NA Tobacco Use/Smoking Question Answer Notes Patient is a nonsmoker Additional Findings: Tobacco Non-User Aggressive non-smoker Vital Signs Temperature 98.6 degrees Fahrenheit 03/04/20 24 Blood pressure systolic 111 mm Hg 03/04/20 Blood pressure diastolic 70 mm Hg 024 Heart Rate 69 /min 03/04/2024 Height 63 in 03/04/2024 Weight 206 lbs 03/04/2024 BMI 36.49 kg/m2 03/04/2024 Encounters Encounter Location Date Provider Diagnosis Chago Peres III, MD [address] [place] [address] [address] [facility] [place] [address] 03/04/2024 Chago Peres Benign prostatic hyperplasia without lower urinary tract symptoms N40.0 ; Monoclonal gammopathy D47.2 ; Malignant neoplasm of prostate C61 ; Obesity, unspecified E66.9 ; Former smoker Z87.891 and Peripheral edema R60.9 Assessments Encounter Date Diagnosis (ICD Code) Assessment Notes Treatment Notes Treatment Clinical Notes 03/04/2024 Benign prostatic hyperplasia without lower urinary tract symptoms (ICD-10 - N40.0) He has been rising from sleep twice a night. This is partly due to his diuretic. We discussed lifestyle modification as a way of reducing nocturnal urination. He is switching his urology care to [facility]. Records will be forwarded. 03/04/2024 Monoclonal gammopathy (ICD-10 - D47.2) His IgG is 1193 which is stable. The kappa lambda ratio is 37.6. His total protein is 7.1. He is stable at this time. 03/04/2024 Malignant neoplasm of prostate (ICD-10 - C61) His P and 6 and a is stable and not rising. There was no sign of prostate cancer or urothelial carcinoma on today's examination. 03/04/2024 Obesity, unspecified (ICD-10 - E66.9) He has gained 17 pounds almost all of which is fluid retention. His diuretic was increased by cardiology recently. 03/04/2024 Former smoker (ICD-10 - Z87.891) He has a plan to prevent relapse and times of stress or illness. 03/04/2024 Peripheral edema (ICD-10 - R60.9) He has gained 17 pounds since his last visit. Most of which is peripheral edema. Plan Of Treatment Medication Medication Name Sig Start Date Stop Date Notes Potassium Chloride ER 20 MEQ 2 tablets with food Orally Twice a day Spironolactone 25 MG TAKE 1 TABLET BY MOUTH DAILY Oral Eliquis 5 MG as directed Orally Twice a day metOLazone 2.5 MG 1 tablet Orally Mondays Amiodarone HCl 200 MG TAKE 2 TABLETS TWI CE A DAY FOR 14 DAYS, THEN REDUCE DOSE TO 1 TABLET DAILY Oral Acetaminophen 650 MG 1 tablet as needed Orally every 6 hrs Iron 65 MG 1 tablet Orally Thre e times a Week Calcium + Vitamin D3 600-5 MG-MCG 1 tablet with a meal Orally Once a day Multivitamins Orally Flomax 0.4 MG 1 capsule Orally onc e in the evening Furosemide 40 MG 1 tablet Orally Twic e a day every other day Vitamin D3 25 MCG (1000 UT) 1 capsule Or ally Once a day Pending Test Test Name Order Date PROFILE, RANDOM (COMPREHENSIVE METABOLIC ) 03/04/2024 PSA, TOTAL 03/04/2024 IMMUNOFIXATION PANEL, SERUM (IEP) 2023 PROTEIN ELECTROPHORESIS, SERUM CBC WITH AUTO DIFF 03/04/2024 Next Appt Details Follow Up: 4 Months, Reason: office visit Provider Name:Chago Peres, 07/04/2024 11:00:00 AM, [address] [place] [address] , [place] [address], [place], [address], Progress Notes * Jung FUNES CDOB:[birth year] (83 yo M)Acc No.[id number]:03/04/2024 Progress Notes Patient:?Jung Funes Provider:?Chago Peres MD :[id number]???Age:83 Y???Sex:Male Gagan e:03/04/2024 Address:[address] [place] [address], [id number] Pcp:HAZEL DAVIS MD Subjective: * Chief Complaints: * ???Peripheral edemaObesityMo noclonal gammopathyBenign prostatic hypertrophyBladder cancerProstate cancer * HPI: ???COVID-19 Screening:? He returns for oncology surveillance. He has gained 17 pounds since his last visit. He went to the [facility] last week and his furosemide dose was increased to 80 mg a day. He admits to nocturia twice a night. He went to the emergency room at [facility] last night because of a hemorrhage from a skin lesion on the back of his right knee. He had 2 sutures today. There was no sign of infection. His blood work was reviewed. His PSA remains undetectable. There was no sign of malignancy on today's examination. Blood work done March 03, 2024 showed white count 6.7, hematocrit 39.6 platelets 149, glucose 97, BUN 48, creatinine 2.1, for GFR 30, total protein 7.1, abnormal protein 0.3 IgG 1193 A lambda ratio 37.6. ?Questions?Have you experienced fever, chills, cough, sore throat, shortness of breath, difficulty breathing, muscle aches, loss of taste or smell??No ?Have you been exposed to the virus within the last 10 days??No ?Have you travelled internationally in the last 10 days??No ?Have you been exposed to COVID-19 in the past??No * ROS:?General/Constitutional:?pain?only normal aches and pains.?Chills?denies.?Fatigue?admits.?Fever?denies.?ENT:?Decreased hearing?mild.?Respiratory:?Cough?denies.?Cardiovascular:?Chest pain with exertion?denies.?Dyspnea on exertion?denies.?Shortness of breath?denies.?Gastrointestinal:?Constipation?denies.?Decreased appetite?denies.?Diarrhea?denies.?Heartburn?denies.?Nausea?denies.?Rectal bleeding?denies.?Vomiting?denies.?Hematology:?bruising?denies.?petechiae?denies.?Swollen glands?none have been noted.?Genitourinary:?Frequent urination?denies.?Musculoskeletal:?Muscle aches?denies.?Painful joints?Both knees.?Sciatica?denies.?Weakness?denies.?Skin:?Itching?denies.?Rash?denies.?Skin lesion(s)?denies.?Neurologic:?Difficulty speaking?denies.?Dizziness?denies.?Headache?denies.?Low back pain?denies.?Psychiatric:?Depressed mood?which is mild.? [...] a?nonsmoker ?Additional Findings: Tobacco Non-User?Aggressive non-smoker * Medications:?TakingVitamin D 3 25 MCG (1000 UT) Capsule 1 capsule Orally Once a dayFurosemide 40 MG Tablet 1 tablet Orally Twice a day, Notes: every other dayMultivitamins Capsule Orally Flomax 0.4 MG Capsule 1 capsule Orally once in the eveningIron 65 MG Tablet 1 tablet Orally Three times a WeekCalcium + Vitamin D3 600-5 MG-MCG Tablet 1 tablet with a meal Orally Once a dayAcetaminophen 650 MG Tablet 1 tablet as needed Orally every 6 hrsEliquis 5 MG Tablet as directed Orally Twice a dayPotassium Chloride ER 20 MEQ Tablet Extended Release 2 tablets with food Orally Twice a daySpironolactone 25 MG Tablet TAKE 1 TABLET BY MOUTH DAILY Oral metOLazone 2.5 MG Tablet 1 tablet Orally MondaysAmiodarone HCl 200 MG Tablet TAKE 2 TABLETS TWICE A DAY FOR 14 DAYS, THEN REDUCE DOSE TO 1 TABLET DAILY Oral Taking Vitamin D3 25 MCG (1000 UT) Capsule 1 capsule Orally Once a dayTaking Furosemide 40 MG Tablet 1 tablet Orally Twice a day, Notes: every other dayTaking Multivitamins Capsule Orally Taking Flomax 0.4 MG Capsule 1 capsule Orally once in the eveningTaking Iron 65 MG Tablet 1 tablet Orally Three times a WeekTaking Calcium + Vitamin D3 600-5 MG- MCG Tablet 1 tablet with a meal Orally Once a dayTaking Acetaminophen 650 MG Tablet 1 tablet as needed Orally every 6 hrsTaking Eliquis 5 MG Tablet as directed Orally Twice a dayTaking Potassium Chloride ER 20 MEQ Tablet Extended Release 2 tablets with food Orally Twice a dayTaking Spironolactone 25 MG Tablet TAKE 1 TABLET BY MOUTH DAILY Oral Taking metOLazone 2.5 MG Tablet 1 tablet Orally Amiodarone HCl 200 MG Tablet TAKE 2 TABLETS TWICE A DAY FOR 14 DAYS, THEN REDUCE DOSE TO 1 TABLET DAILY Oral DiscontinuedAmlodipine & Diet Manage Prod 2.5 MG Tablet 1 Tablet Orally Once a dayCalcium Carbonate 500 MG Tablet Chewable 1 tablet Orally Once a dayLisinopril 40 MG Tablet 1 tablet Orally Once a dayWarfarin Sodium 5 MG Tablet 1 tablet Orally Once a dayViagra 100 MG Tablet 1 tablet as needed Orally as neededVitamin D 500 Capsule 1 capsule Orally Once a dayMedication List reviewed and reconciled with the patientDiscontinued Amlodipine & Diet Manage Prod 2.5 MG Tablet 1 Tablet Orally Once a dayDiscontinued Calcium Carbonate 500 MG Tablet Chewable 1 tablet Orally Once a dayDiscontinued Lisinopril 40 MG Tablet 1 tablet Orally Once a dayDiscontinued Warfarin Sodium 5 MG Tablet 1 tablet Orally Once a dayDiscontinued Viagra 100 MG Tablet 1 tablet as needed Orally as neededDiscontinued Vitamin D 500 Capsule 1 capsule Orally Once a dayMedication List reviewed and reconciled with the patient * Allergies:?No Known Drug All ergyno[Allergies Verified] Objective: * Vitals:?Ht: 63, Wt:206, BMI: 36.49, BP:111/70, HR:69, Temp:98.6, Wt-k.44. * ???Past Orders: Lab:Prostate Specific Antige n * Order Date 02/26/2024 11/01/2023 06/28/2023 Prostate Specific Antigen < 0.10 (Ref Range: <0.05-4.0 ng/mL) < 0.10 (Ref Range: <0.05-4.0 ng/mL) 0.11 (Ref Range: <0.05-4.0 ng/mL) * Examination: ???General Examination: ?GENERAL APPEARANCE:?pleasant, well nourished, well developed, in no acute distress, calm and relaxed , obese , man.?HEAD:?atraumatic, normocephalic.?EYES:?eomi, perrla, anicteric, conjugate.?EARS:?normal.?NOSE:?septum intact.?ORAL CAVITY:?normal, unremarkable.?NECK/THYROID:?no jugular venous distention, no carotid bruit, thyroid normal.?LYMPH NODES:?no enlarged lymph nodes,spleen normal.?SKIN:?no suspicious lesions, anicteric.?HEART:?no clicks, gallops, murmurs, or rubs, regular rhythm, S1, S2 normal, no s3, or vascular bruits.?LUNGS:?clear to auscultation .?BREASTS:??no masses palpable bilaterally.?ABDOMEN:?bowel sounds normal, no ascites, no organomegaly, no mass , centripital obesity.?RECTAL EXAM:?not examined.?MUSCULOSKELETAL:?extremities unremarkable, no clubbing, cyanosis; There was pitting edema from the knees down on either side.?PERIPHERAL PULSES:?normal.?NEUROLOGIC:?alert and oriented, cranial nerves 2-12 grossly intact, deep tendon reflexes 2+ symmetrical, motor strength normal upper and lower extremities, sensory exam intact.?PSYCH:?alert, oriented.? Assessment: * Assessment: 1.?Benign prostatic hyperpla doug without lower urinary tract symptoms - N40.0, He has been rising from sleep twice a night. This is partly due to his diuretic. We discussed lifestyle modification as a way of reducing nocturnal urination. He is switching his urology care to [facility]. Records will be forwarded.?2.?Monoclonal gammopathy - D47.2, His IgG is 1193 which is stable. The kappa lambda ratio is 37.6. His total protein is 7.1. He is stable at this time.?3.?Malignant neoplasm of prostate - C61, His P and 6 and a is stable and not rising. There was no sign of prostate cancer or urothelial carcinoma on today's examination.?4.?Obesity, unspecified - E66.9, He has gained 17 pounds almost all of which is fluid retention. His diuretic was increased by cardiology recently.?5.?Former smoker - Z87.891, He has a plan to prevent relapse and times of stress or illness.?6.?Peripheral edema - R60.9, He has gained 17 pounds since his last visit. Most of which is peripheral edema.? Plan: * Treatment: 2.?Monoclonal gammopathy?LAB: PROFILE, RANDOM (COMPREHENSIVE METABOLIC) ?LAB: PSA, TOTAL ?LAB: IMMUNOFIXATION PANEL, SERUM (IEP) ?LAB: PROTEIN ELECTROPHORESIS, SERUM ?LAB: CBC WITH AUTO DIFF 3.?Malignant neoplasm of pro state?LAB: PROFILE, RANDOM (COMPREHENSIVE METABOLIC) ?LAB: PSA, TOTAL ?LAB: IMMUNOFIXATION PANEL, SERUM (IEP) ?LAB: PROTEIN ELECTROPHORESIS, SERUM ?LAB: CBC WITH AUTO DIFF 4.?Obesity, unspecified?LAB: PROFILE, RANDOM (COMPREHENSIVE METABOLIC) ?LAB: PSA, TOTAL ?LAB: IMMUNOFIXATION PANEL, SERUM (IEP) ?LAB: PROTEIN ELECTROPHORESIS, SERUM ?LAB: CBC WITH AUTO DIFF * Procedure Codes:? * Preventive Medicine:? ??Counseling:?Care [...] not done * Follow Up:?4 Months (Reason: office visit) * Images: * Sign off status: Completed true * Provider:?Chago Peres MD Date:?02/10 Generated for Roe holbrook/Tato/Cherieitting on:?05/20/2024 12:26 PM EST History and Physical Notes * HPI (History of Present Illness) Category Sub-Category Detail Notes COVID-19 Screening Questions Have you expe rienced fever, chills, cough, sore throat, shortness of breath, difficulty breathing, muscle aches, loss of taste or smell?: No Have you been exposed to the virus withi n the last 10 days?: No Have you travelled internationally in e last 10 days?: No Have you been exposed to COVID-19 in the past?: No Examination Category Sub-Category Detail Notes General Examination GENERAL APPEARANCE: pleasant , well nourished, well developed, in no acute distress, calm and relaxed , obese , man HEAD: atraumatic, normocep halic EYES: eomi, [...] BREASTS: no masses palpable b ilaterally MUSCULOSKELETAL: extremities unremark able, no clubbing, cyanosis; There was pitting edema from the knees down on either side LYMPH NODES: no enlarged lymph no shanon,spleen normal RECTAL EXAM: not examined PSYCH: alert, oriented ORAL CAVITY: normal, unremarkable
--- OUTSIDE RECORDS SUMMARY | 2024-05-20 12:27 | XMS_ITS ---
Author Organization Chago Peres III, MD Address [address] [place] [address] Care Team Providers Care Physical Scientist Name Role Phone HAZEL DAVIS MD Primary Care Provider Chaog De La Cruz Unavailable [phone] Allergies Allergen (clinical drug ingredient) Drug/Non Drug Allergy documented on EMR Reaction Allergy Type Onset Date Status No Known Drug Allergy Unknown Drug Allergy Active REASON FOR VISIT Bladder cancer, Monoclonal gammopathy, Prostate cancer, Peripheral edema Medications Medication SIG (Take, Route, Frequency, Duration) Notes Start Date End Date Status Amlodipine & Diet Manage Prod 2.5 MG 1 Tablet Orally Once a day Active Calcium Carbonate 500 MG 1 tablet Orally Once a day Active Lisinopril 40 MG 1 tablet Orally Once a day Active Multivitamins Orally Active Furosemide 80 MG 1 tablet Orally Once a day every other day Active metOLazone 2.5 MG Oral Ac tive Acetaminophen 650 MG as directed Orally Active Eliquis 5 MG Oral Active Potassium Chloride ER 20 MEQ Oral Active Spironolactone 25 MG TAKE 1 TABLET BY MOUTH DAILY Oral Active Iron 65 MG 1 tablet Orally Three times a Week Active Calcium + Vitamin D3 600-5 MG-MCG 1 tablet with a meal Orally Once a day Active Flomax 0.4 MG 1 capsule 30 minutes after the same meal each day Orally Once a day Active Vitamin D 500 1 capsule Orally Once a day Active Warfarin Sodium 5 MG 1 tablet Orally Onc e a day Active Viagra 100 MG 1 tablet as needed Orally as needed Active Social History Tobacco Use: Social History Observation Description Date Details (start date - stop date) Never Smoker NA - NA Tobacco Use/Smoking Question Answer Notes Patient is a nonsmoker Additional Findings: Tobacco Non-User Aggressive non-smoker Problems Problem Type SNOMED Code ICD Code Onset Dates Problem Status W/U Status Risk Notes Problem Obesity (391923613) Obesity (E66.9) Active confirmed Vital Signs Temperature 97.6 degrees Fahrenheit 11/06/19 24 Blood pressure systolic 128 mm Hg 11/06/19 24 Blood pressure diastolic 66 mm Hg 024 Heart Rate 67 /min 11/06/2023 Height 63 in 11/06/2023 Weight 189 lbs 11/06/2023 BMI 33.48 kg/m2 11/06/2023 Encounters Encounter Location Date Provider Diagnosis Chago Peres III, MD [address] [place] [address] [place] [address] 11/06/2023 Chago Peres Benign prostatic hyperplasia without lower urinary tract symptoms N40.0 ; Monoclonal gammopathy D47.2 ; Malignant neoplasm of prostate C61 ; Malignant neoplasm of bladder, unspecified C67.9 ; Other male erectile dysfunction N52.8 ; Former smoker Z87.891 ; Obesity 278.00 and Peripheral edema R60.9 Assessments Encounter Date Diagnosis (ICD Code) Assessment Notes Treatment Notes Treatment Clinical Notes 11/06/2023 Benign prostatic hyperplasia without lower urinary tract symptoms (ICD-10 - N40.0) He has been rising from sleep twice a night. This is partly due to his diuretic. We discussed lifestyle modification as a way of reducing nocturnal urination. He is switching his urology care to [facility]. Records will be forwarded. 11/06/2023 Monoclonal gammopathy (ICD-10 - D47.2) The IgG level has increased but the abnormal protein on serum protein electrophoresis has remained stable at 0.3 g/dL. 11/06/2023 Malignant neoplasm of prostate (ICD-10 - C61) His PSA remains nondetectable. 11/06/2023 Malignant neoplasm of bladder, unspecified (ICD-10 - C67.9) There was no sign at this time of metastatic or recurrent bbladder cancer. 11/06/2023 Other male erectile dysfunction (ICD-10 - N52.8) Thiss issue has been addressed with medication. 11/06/2023 Former smoker (ICD-10 - Z87.891) He has a plan to prevent relapse and times of stress or illness. 11/06/2023 Obesity (ICD9-CM - 278.00) He remains in the obese range but has lost 18 pounds since June 2023, mostly fluid from diuresis. 11/06/2023 Peripheral edema (ICD-10 - R60.9) The peripheral edema has resolved. Plan Of Treatment Medication Medication Name Sig Start Date Stop Date Notes Amlodipine & Diet Manage Prod 2.5 MG 1 Tablet Orally Once a day Calcium Carbonate 500 MG 1 tablet Orally Once a day Lisinopril 40 MG 1 tablet Orally Once a day Multivitamins Orally Furosemide 80 MG 1 tablet Orally Once a day every other day metOLazone 2.5 MG Oral Acetaminophen 650 MG as directed Orally Eliquis 5 MG Oral Potassium Chloride ER 20 MEQ Oral Spironolactone 25 MG TAKE 1 TABLET BY MOUTH DAILY Oral Iron 65 MG 1 tablet Orally Thre e times a Week Calcium + Vitamin D3 600-5 MG-MCG 1 tablet with a meal Orally Once a day Flomax 0.4 MG 1 capsule 30 minutes after the same meal each day Orally Once a day Vitamin D 500 1 capsule Orally Onc e a day Warfarin Sodium 5 MG 1 tablet Orally Onc e a day Viagra 100 MG 1 tablet as needed Orally as needed Pending Test Test Name Order Date PROFILE, RANDOM (COMPREHENSIVE METABOLIC ) 11/06/2023 PSA, TOTAL 11/06/2023 CBC w DIFF 11/06/2023 IMMUNOFIXATION PANEL, SERUM (IEP) 2023 PROTEIN ELECTROPHORESIS, SERUM FREE KAPPA LAMBDA, SERUM K/L RATIO 11/05 KAPPA LAMBDA SER 11/06/2023 Next Appt Details Follow Up: 4 Months, Reason: ov review labs Provider Name:Chago Peres, 07/04/2024 11:00:00 AM, [address] [place] [address] [address], [address], [facility] [place], [address], Progress Notes * Jung FUNES CDOB:[birth year] (83 yo M)Acc No.[id number]:11/06/2023 Progress Notes Patient:?Jung Funes Provider:?Chago Peres MD :[id number]???Age:83 Y???Sex:Male Gagan e:11/06/2023 Address:[address] [place] [address], [id number] Pcp:HAZEL DAVIS MD Subjective: * Chief Complaints: * ???Bladder cancerMonoclonal gammopathyProstate cancerPeripheral edema * HPI: ???COVID-19 Screening:? He returns to the office for ongoing management of a history of bladder cancer prostate cancer and monoclonal gammopathy. Blood work was available and was reviewed with him in detail. He has been treated for his fluid retention and peripheral edema. There was only a trace of edema around the ankles today. He is breathing more comfortably. There was no sign of recurrent malignancy. The paraprotein is stable. ?Questions?Have you experienced fever, chills, cough, sore throat, shortness of breath, difficulty breathing, muscle aches, loss of taste or smell??No ?Have you been exposed to the virus within the last 10 days??No ?Have you travelled internationally in the last 10 days??No ?Have you been exposed to COVID-19 in the past??No * ROS:?General/Constitutional:?pain?only normal aches and pains.?Chills?denies.?Fatigue?admits.?Fever?denies.?ENT:?Decreased hearing?denies.?Respiratory:?Cough?denies.?Cardiovascular:?Chest pain with exertion?denies.?Dyspnea on exertion?denies.?Shortness of breath?denies.?Gastrointestinal:?Constipation?occasional.?Decreased appetite?denies.?Diarrhea?denies.?Heartburn?occasional.?Nausea?denies.?Rectal bleeding?denies.?Vomiting?denies.?Hematology:?bruising?denies.?petechiae?denies.?Swollen glands?none have been noted.?Genitourinary:?Frequent urination?twice a night.?Musculoskeletal:?Muscle aches?denies.?Painful joints?denies.?Sciatica?denies.?Weakness?denies.?Skin:?Itching?denies.?Rash?denies.?Skin lesion(s)?denies.?Neurologic:?Difficulty speaking?denies.?Dizziness?denies.?Headache?denies.?Low back pain?denies.?Psychiatric:?Depressed mood?denies.? * Medical History:? * Surgical History:?Vericose v [...] a?nonsmoker ?Additional Findings: Tobacco Non-User?Aggressive non-smoker * Medications:?TakingIron 65 M G Tablet 1 tablet Orally Three times a WeekCalcium + Vitamin D3 600-5 MG-MCG Tablet 1 tablet with a meal Orally Once a dayAcetaminophen 650 MG Tablet as directed Orally Eliquis 5 MG Tablet Oral Furosemide 80 MG Tablet 1 tablet Orally Once a day, Notes: every other dayMultivitamins Capsule Orally Flomax 0.4 MG Capsule 1 capsule 30 minutes after the same meal each day Orally Once a dayPotassium Chloride ER 20 MEQ Tablet Extended Release Oral Spironolactone 25 MG Tablet TAKE 1 TABLET BY MOUTH DAILY Oral metOLazone 2.5 MG Tablet Oral Taking Iron 65 MG Tablet 1 tablet Orally Three times a WeekTaking Calcium + Vitamin D3 600-5 MG-MCG Tablet 1 tablet with a meal Orally Once a dayTaking Acetaminophen 650 MG Tablet as directed Orally Taking Eliquis 5 MG Tablet Oral Taking Furosemide 80 MG Tablet 1 tablet Orally Once a day, Notes: every other dayTaking Multivitamins Capsule Orally Taking Flomax 0.4 MG Capsule 1 capsule 30 minutes after the same meal each day Orally Once a dayTaking Potassium Chloride ER 20 MEQ Tablet Extended Release Oral Taking Spironolactone 25 MG Tablet TAKE 1 TABLET BY MOUTH DAILY Oral Taking metOLazone 2.5 MG Tablet Oral DiscontinuedAmlodipine & Diet Manage Prod 2.5 [...] All ergyno[Allergies Verified] Objective: * Vitals:?Ht: 63, Wt:189, BMI: 33.48, BP:128/66, HR:67, Temp:97.6, Wt-k.73. * ???Past Orders: Lab:[facility] [place]. Laminee l Fast * Order Date 11/01/2023 06/28/2023 01/25/2023 Sodium 141 (Ref Range: 135-145 mmol/L) 145 (Ref Range: 135-145 mmol/L) 141 (Ref Range: 135-145 mmol/L) Bilirubin Total 1.3?H (Ref Range: 0.0-1.0 mg/dL) 1.0 (Ref Range: 0.0-1.0 mg/dL) 0.9 (Ref Range: 0.0-1.0 mg/dL) Aspartate Amino Transferase 29 (Ref Range: 5-37 U/L) 21 (Ref Range: 5-37 U/L) 22 (Ref Range: 5-37 U/L) Alanine Aminotransferase 25 (Ref Range: 0-40 U/L) 15 (Ref Range: 0-40 U/L) 19 (Ref Range: 0-40 U/L) Total Protein 7.9 (Ref Range: 6.5-8.0 g/dL) 7.1 (Ref Range: 6.5-8.0 g/dL) 7.3 (Ref Range: 6.5-8.0 g/dL) Albumin Level 3.7 (Ref Range: 3.5-5.0 g/dL) 3.6 (Ref Range: 3.5-5.0 g/dL) 3.8 (Ref Range: 3.5-5.0 g/dL) Alkaline Phosphatase 117 (Ref Range: 39-117 U/L) 128?H (Ref Range: 39-117 U/L) 113 (Ref Range: 39-117 U/L) Potassium 4.1 (Ref Range: 3.3-5.1 mmol/L) 3.3 (Ref Range: 3.3-5.1 mmol/L) 4.4 (Ref Range: 3.3-5.1 mmol/L) Chloride 101 (Ref Range: 96-108 mmol/L) 104 (Ref Range: 96-108 mmol/L) 106 (Ref Range: 96-108 mmol/L) Carbon Dioxide 31?H (Ref Range: 22-29 mmol/L) 30?H (Ref Range: 22-29 mmol/L) 27 (Ref Range: 22-29 mmol/L) Anion Gap 13 (Ref Range: 12-20) 14 (Ref Range: 12-20) 12 (Ref Range: 12-20) Blood Urea Nitrogen 49?H (Ref Range: 9-16 mg/dL) 25?H (Ref Range: 9-16 mg/dL) 46?H (Ref Range: 9-16 mg/dL) Creatinine 1.35 (Ref Range: 0.5-1.4 mg/dL) 1.20 (Ref Range: 0.5-1.4 mg/dL) 1.38 (Ref Range: 0.5-1.4 mg/dL) Estimated Glomerular Filt Rate 50 58 49 Glucose Fasting 107?H (Ref Range: 60-99 mg/dL) 104?H (Ref Range: 60-99 mg/dL) 81 (Ref Range: 60-99 mg/dL) Calcium 9.8 (Ref Range: 8.4-10.2 mg/dL) 9.0 (Ref Range: 8.4-10.2 mg/dL) 9.6 (Ref Range: 8.4-10.2 mg/dL) * Lab:Complete Blood Count Aut o Diff * Order Date 11/01/2023 06/28/2023 01/25/2023 White Blood Count 6.5 (Ref Range: 4.8-10.8 X10*3/uL) 7.0 (Ref Range: 4.8-10.8 X10*3/uL) 8.3 (Ref Range: 4.8-10.8 X10*3/uL) Red Blood Count 4.64 (Ref Range: 4.60-5.80 X10*6/uL) 3.54?L (Ref Range: 4.60-5.80 X10*6/uL) 4.16?L (Ref Range: 4.60-5.80 X10*6/uL) Hemoglobin 13.3?L (Ref Range: 14.0-18.0 g/dl) 10.3?L (Ref Range: 14.0-18.0 g/dl) 12.6?L (Ref Range: 14.0-18.0 g/dl) Hematocrit 41.9?L (Ref Range: 42.0-52.0 %) 33.8?L (Ref Range: 42.0-52.0 %) 38.3?L (Ref Range: 42.0-52.0 %) Mean Corpuscular Volume 90.3 (Ref Range: 80.0-98.0 fL) 95.5 (Ref Range: 80.0-98.0 fL) 92.1 (Ref Range: 80.0-98.0 fL) Mean Corpuscular Hemoglobin 28.7 (Ref Range: 27.0-33.0 pg) 29.1 (Ref Range: 27.0-33.0 pg) 30.3 (Ref Range: 27.0-33.0 pg) Mean Corpuscular HGB Conc 31.7 (Ref Range: 31.0-36.0 g/dl) 30.5?L (Ref Range: 31.0-36.0 g/dl) 32.9 (Ref Range: 31.0-36.0 g/dl) Red Cell Distribution Width 19.2?H (Ref Range: 11.0-16.0 %) 16.7?H (Ref Range: 11.0-16.0 %) 13.8 (Ref Range: 11.0-16.0 %) Platelet Count 208 (Ref Range: 160-400 X10*3/uL) 240 (Ref Range: 160-400 X10*3/uL) 199 (Ref Range: 160-400 X10*3/uL) Mean Platelet Volume 10.5 (Ref Range: 9.4-12.4 fL) 11.0 (Ref Range: 9.4-12.4 fL) 11.0 (Ref Range: 9.4-12.4 fL) Neutrophils Percent Auto 64.7 (Ref Range: 45-73 %) 65.8 (Ref Range: 45-73 %) 72.3 (Ref Range: 45-73 %) Imm Gran Pct Auto 0.6?H (Ref Range: 0.0-0.4 %) 0.3 (Ref Range: 0.0-0.4 %) 0.6?H (Ref Range: 0.0-0.4 %) Lymphocytes Percent Auto 20.1 (Ref Range: 20-40 %) 21.4 (Ref Range: 20-40 %) 13.2?L (Ref Range: 20-40 %) Monocytes Percent Auto 13.7?H (Ref Range: 2-11 %) 11.4?H (Ref Range: 2-11 %) 13.2?H (Ref Range: 2-11 %) Eosinophils Percent Auto 0.0 (Ref Range: 0-4 %) 0.0 (Ref Range: 0-4 %) 0.0 (Ref Range: 0-4 %) Basophils Percent Auto 0.9 (Ref Range: 0-2 %) 1.1 (Ref Range: 0-2 %) 0.7 (Ref Range: 0-2 %) NRBC Pct Auto 0.0 (Ref Range: 0.0-0.2 /100WBC) 0.0 (Ref Range: 0.0-0.2 /100WBC) 0.0 (Ref Range: 0.0-0.2 /100WBC) Neutrophils Absolute Auto 4.2 (Ref Range: 2.0-8.3 x10*3/uL) 4.6 (Ref Range: 2.0-8.3 x10*3/uL) 6.0 (Ref Range: 2.0-8.3 x10*3/uL) Imm Gran Abs Auto 0.04?H (Ref Range: 0.00-0.03 X10*3/uL) 0.02 (Ref Range: 0.00-0.03 X10*3/uL) 0.05?H (Ref Range: 0.00-0.03 X10*3/uL) Lymphocytes Absolute Auto 1.3 (Ref Range: 1.2-4.9 X10*3/uL) 1.5 (Ref Range: 1.2-4.9 X10*3/uL) 1.1?L (Ref Range: 1.2-4.9 X10*3/uL) Monocytes Absolute Auto 0.9 (Ref Range: 0.1-1.2 X10*3/uL) 0.8 (Ref Range: 0.1-1.2 X10*3/uL) 1.1 (Ref Range: 0.1-1.2 X10*3/uL) Eosinophils Absolute Auto 0.0 (Ref Range: 0.0-0.4 X10*3/uL) 0.0 (Ref Range: 0.0-0.4 X10*3/uL) 0.0 (Ref Range: 0.0-0.4 X10*3/uL) Basophils Absolute Auto 0.1 (Ref Range: 0.0-0.2 X10*3/uL) 0.1 (Ref Range: 0.0-0.2 X10*3/uL) 0.1 (Ref Range: 0.0-0.2 X10*3/uL) NRBC Abs Auto 0.000 (Ref Range: 0.0-0.012 X10*3/uL) 0.000 (Ref Range: 0.0-0.012 X10*3/uL) 0.000 (Ref Range: 0.0-0.012 X10*3/uL) * Lab:Prostate Specific Antige n * Order Date 11/01/2023 06/28/2023 08/11/2022 Prostate Specific Antigen < 0.10 (Ref Range: <0.05-4.0 ng/mL) 0.11 (Ref Range: <0.05-4.0 ng/mL) < 0.10 (Ref Range: <0.05-4.0 ng/mL) * Lab:Lipid Panel * Order Date 11/01/2023 06/28/2023 01/25/2023 Triglycerides 76 (Ref Range: <150 mg/dL) 82 (Ref Range: <150 mg/dL) 96 (Ref Range: mg/dL) Cholesterol 151 (Ref Range: <200 mg/dL) 148 (Ref Range: <200 mg/dL) 171 (Ref Range: mg/dL) LDL Cholesterol Calculated 73 (Ref Range: <100 mg/dL) 75 (Ref Range: <100 mg/dL) 100 (Ref Range: mg/dl) HDL Cholesterol 63 (Ref Range: >40 mg/dL) 57 (Ref Range: >40 mg/dL) 52 (Ref Range: mg/dL) * Lab:Immunofixation Pnl, Seru m * Order Date 11/01/2023 11/08/2022 08/11/2022 IgG 2022?A (Ref Range: 600-1540 mg/dL) 1462 (Ref Range: 600-1540 mg/dL) 1658?A (Ref Range: 600-1540 mg/dL) IgA 196 (Ref Range: 70-320 mg/dL) 152 (Ref Range: 70-320 mg/dL) 156 (Ref Range: 70-320 mg/dL) IgM 109 (Ref Range: 50-300 mg/dL) 99 (Ref Range: 50-300 mg/dL) 103 (Ref Range: 50-300 mg/dL) Immunofixation Interpretation SEE NOTE SEE NOTE SEE NOTE * Lab:Protein Electrophoresis, Serum * Order Date 11/01/2023 06/28/2023 11/08/2022 Prot Elec - Total Protein 7.3 (Ref Range: 6.1-8.1 g/dL) 6.5 (Ref Range: 6.1-8.1 g/dL) 6.9 (Ref Range: 6.1-8.1 g/dL) Prot Elec - Albumin 3.7?A (Ref Range: 3.8-4.8 g/dL) 3.3?A (Ref Range: 3.8-4.8 g/dL) 3.8 (Ref Range: 3.8-4.8 g/dL) Prot Elec - Alpha1 0.3 (Ref Range: 0.2-0.3 g/dL) 0.4?A (Ref Range: 0.2-0.3 g/dL) 0.3 (Ref Range: 0.2-0.3 g/dL) Prot Elec - Alpha2 0.7 (Ref Range: 0.5-0.9 g/dL) 0.8 (Ref Range: 0.5-0.9 g/dL) 0.7 (Ref Range: 0.5-0.9 g/dL) Prot Elec - Beta 1 0.4 (Ref Range: 0.4-0.6 g/dL) 0.4 (Ref Range: 0.4-0.6 g/dL) 0.5 (Ref Range: 0.4-0.6 g/dL) Prot Elec - Beta 2 0.4 (Ref Range: 0.2-0.5 g/dL) 0.3 (Ref Range: 0.2-0.5 g/dL) 0.3 (Ref Range: 0.2-0.5 g/dL) Prot Elec - Gamma 1.8?A (Ref Range: 0.8-1.7 g/dL) 1.4 (Ref Range: 0.8-1.7 g/dL) 1.5 (Ref Range: 0.8-1.7 g/dL) PES - Abn Protein Band 1 0.3?A (Ref Range: NONE DETECTED g/dL) 0.3?A (Ref Range: NONE DETECTED g/dL) 0.3?A (Ref Range: NONE DETECTED g/dL) PES-Abn Protein Band 2 TNP TNP TNP PES-Abn Protein Band 3 TNP TNP TNP Prot Elec - Interpretation SEE NOTE SEE NOTE SEE NOTE * Examination: ???General Examination: ?GENERAL APPEARANCE:?pleasant, well nourished, well developed, in no acute distress, calm and relaxed , obese , elderly man.?HEAD:?atraumatic, normocephalic.?EYES:?eomi, perrla, anicteric, conjugate.?EARS:?normal.?NOSE:?septum intact.?ORAL CAVITY:?normal, unremarkable.?NECK/THYROID:?no jugular venous distention, no carotid bruit, thyroid normal.?LYMPH NODES:?no enlarged lymph nodes,spleen normal.?SKIN:?no suspicious lesions, anicteric.?HEART:?no clicks, gallops, murmurs, or rubs, regular rhythm, S1, S2 normal, no s3, or vascular bruits.?LUNGS:?clear to auscultation .?BREASTS:??no masses palpable bilaterally.?ABDOMEN:?bowel sounds normal, no ascites, no organomegaly, no mass , centripital obesity.?RECTAL EXAM:?not examined.?MUSCULOSKELETAL:?extremities unremarkable, no clubbing, cyanosis; Trace edema at ankles.?PERIPHERAL PULSES:?normal.?NEUROLOGIC:?alert and oriented, cranial nerves 2-12 grossly [...] He is switching his urology care to [facility]. Records will be forwarded.?2.?Monoclonal gammopathy - D47.2, The IgG level has increased but the abnormal protein on serum protein electrophoresis has remained stable at 0.3 g/dL.?3.?Malignant neoplasm of prostate - C61, His PSA remains nondetectable.?4.?Malignant neoplasm of bladder, unspecified - C67.9, There was no sign at this time of metastatic or recurrent bbladder cancer.?5.?Other male erectile dysfunction - N52.8, Thiss issue has been addressed with medication.?6.?Former smoker - Z87.891, He has a plan to prevent relapse and times of stress or illness.?7.?Obesity - 278.00, He remains in the obese range but has lost 18 pounds since June 2023, mostly fluid from diuresis.?8.?Peripheral edema - R60.9, The peripheral edema has resolved.? Plan: * Treatment: 2.?Monoclonal gammopathy?LAB: PROFILE, RANDOM (COMPREHENSIVE METABOLIC) ?LAB: PSA, TOTAL ?LAB: CBC w DIFF ?LAB: IMMUNOFIXATION PANEL, SERUM (IEP) ?LAB: PROTEIN ELECTROPHORESIS, SERUM ?LAB: FREE KAPPA LAMBDA, SERUM K/L RATIO ?LAB: KAPPA LAMBDA SER 3.?Malignant neoplasm of pro state?LAB: PROFILE, RANDOM (COMPREHENSIVE METABOLIC) ?LAB: PSA, TOTAL ?LAB: CBC w DIFF ?LAB: IMMUNOFIXATION PANEL, SERUM (IEP) ?LAB: PROTEIN ELECTROPHORESIS, SERUM ?LAB: FREE KAPPA LAMBDA, SERUM K/L RATIO ?LAB: KAPPA LAMBDA SER * Procedure Codes:? * Preventive Medicine:? ??Counseling:?Care [...] done: Medical or Other reason not done ?Smoking/Tobacco Use?Patient counseled on the dangers of tobacco use and urged to quit.?11/06/2023 * Follow Up:?4 Months (Reason: ov review labs) * Images: * Sign off status: Completed true * Provider:?Chago Prees MD Date:?10/10 Generated for Printi ng/Tato/eTransmitting on:?05/20/2024 12:26 PM EST History and Physical [...] distress, calm and relaxed , obese , elderly man HEAD: atraumatic, normocep halic EYES: [...] MUSCULOSKELETAL: extremities unremark able, no clubbing, cyanosis; Trace edema at ankles LYMPH NODES: no enlarged lymph no shanon,spleen normal RECTAL EXAM: not examined PSYCH: alert, oriented ORAL CAVITY: normal, unremarkable
== END 2024-05-13 10:18 | disposition home or self-care (01) ==
LOC: HO.US 10:17
PROVIDERS: PCP Internal Medicine; Visit Provider Surgery Vascular Surgery
DX: I83.11 Varicose veins of right lower extremity with inflammation (principal)
CPT/HCPCS: 93971

== ENCOUNTER → 2024-05-13 10:20 | Outpatient (BNV) | payer MEDICARE, OTHER, SELFPAY | PROVIDERS: PCP Internal Medicine; Visit Provider Radiology Diagnostic Radiology | DX: I83.11 Varicose veins of right lower extremity with inflammation (principal) | CPT/HCPCS: 93971 ==

== ENCOUNTER → 2024-05-21 23:59 | Outpatient (BNV) | payer MEDICARE, OTHER, SELFPAY ==
--- NOTE | 2024-06-03 11:21 | MHC.OFFVIS ---
Intake Visit Reasons: Remote device check-Biotronik Allergies No Known Allergies Allergy (Verified 05/22/24 14:17) [facility] Medical History (Updated 06/03/24 @ 11:23 by Ever Davis MD) Persistent atrial fibrillation Pacemaker Chronic kidney disease, stage 3 Fatty liver Bilateral lower extremity edema SHALONDA (obstructive sleep apnea) Cardiomyopathy Pulmonary hypertension Nonrheumatic tricuspid (valve) insufficiency Chronic right heart failure Current use of anticoagulant therapy Anticoagulated on Coumadin Right rib fracture CHF (congestive heart failure) Nocturnal hypoxemia Peripheral edema Annual physical exam Left tennis elbow Essential hypertension PAF (paroxysmal atrial fibrillation) History of hydrocele Nocturia Bladder outlet obstruction Bladder cancer Prostate cancer Hyperlipidemia HTN (hypertension) Normally functioning cardiac pacemaker present Varicose veins of bilateral lower extremities with other complications Surgical History History of hydrocelectomy Hx of varicose vein stripping Hx of subdural hematoma History of phacoemulsification of cataract of both eyes with intraocular lens implantation Hx of cardiac pacemaker Hx of colonoscopy Hx of parathyroidectomy Hx of cystoscopy Family History Father Cancer Prostate cancer Mother Cancer, Onset Age: 85 Son No problems noted. Daughter No problems noted. Maternal Grandfather No problems noted. Maternal Grandmother No problems noted. Paternal Grandfather No problems noted. Paternal Grandmother No problems noted. Social History Household Members: Spouse Housing: House Are you a primary home care music therapist to a significant other at home: No Do you presently have visiting nurse or other home services: Yes Alcohol intake: current Alcohol intake frequency: holidays/special occasions only Alcohol type: wine Patient Tobacco Use Status: Never used Tobacco e-Cigarette/Vaping Use: Never Used Advance Directives Date on File: 05/02/21 service: No Current occupational status: retired Cognitive needs: No Hearing needs: No Vision needs: Yes Office Procedures Cardiac Device Check Cardiac Device Check Details: Date of service- 05/21/2024 ; Battery life 35%; normal lead parameters; AP 17%; [employer] 92%; atrial burden 63%, controlled rates. Overall normal device function. [id number] Cardiac Device Interrogation, pacemaker Procedure code (CPT) selection complete Assessment & Plan Assessment & Plan (1) Pacemaker: Code(s): Z95.0 - Presence of cardiac pacemaker Category: Medical (2) Persistent atrial fibrillation: Comment: s/p pacemaker Code(s): I48.19 - Other persistent atrial fibrillation Category: Medical Plan x Coding Level of Care Code Procedure Only Diagnoses Pacemaker Z95.0 Persistent atrial fibrillation I48.19 CPT Codes Cardiac Device Check - Cardiac Device 12: [id number] Cardiac Device Interrogation, pacemaker ([id number])
== END ==
PROVIDERS: PCP Internal Medicine; Visit Provider Internal Medicine
DX: I48.19 Other persistent atrial fibrillation (principal); Z95.0 Presence of cardiac pacemaker
CPT/HCPCS: 93294

== ENCOUNTER 2024-05-22 13:05 | Outpatient (AMB) | payer MEDICARE, OTHER, SELFPAY ==
--- OUTSIDE RECORDS SUMMARY | 2024-05-22 13:08 | XMS_ITS | Patient Health Record ---
Author Organization Chago Peres III, MD Address [address] [place] [address] Care Team Providers Care Support Group Manager Name Role Phone HAZEL DAVIS MD Primary Care Provider Chago De La Cruz Unavailable [phone] Allergies Allergen (clinical drug ingredient) Drug/Non Drug Allergy documented on EMR Reaction Allergy Type Onset Date Status No Known Drug Allergy Unknown Drug Allergy Active Results Component Value Reference Range Notes Complete Blood Count Auto Di ff Reviewed date:07/01/2023 08:43:36 AM Interpretation: Performing Lab:[facility], [address] [place] [phone] Notes/Report: White Blood Count 7.0 4.8-10.8 X10*3/uL [...] NRBC Abs Auto 0.000 0.0-0.012 X10*3/uL Comprehensive [place]. Panel Fa st Reviewed date:07/01/2023 08:43:36 AM Interpretation: Performing Lab:[facility], [address] [place] [phone] Notes/Report: Sodium 145 135-145 mmol/L Potassium 3.3 3.3-5.1 mmol/L Chloride 104 96-108 mmol/L Carbon Dioxide 30 22-29 mmol/L Anion Gap 14 12-20 Blood Urea Nitrogen 25 9-16 mg/dL Creatinine 1.20 0.5-1.4 mg/dL Estimated Glomerular Filt Rate 58 NOTE: For -Iraqi individuals, multiply the result by 1.210. Chronic [...] Panel Reviewed date:07/01/2023 08:43:36 AM Interpretation: Performing Lab:[facility], [address] [place] [phone] Notes/Report: Triglycerides 82 <150 mg/dL Desirable Triglyceride: [...] Antigen Reviewed date:07/01/2023 08:43:36 AM Interpretation: Performing Lab:[facility], [address] [place] [phone] Notes/Report: Prostate Specific Antigen 0.11 <0.05-4.0 ng/mL PSA methodology: Isaac Alinity i Chemiluminescent Microparticle Immunoassay (CMIA) [place]/Lambda [place] Ch,Free w ra t Reviewed date:07/06/2023 11:22:43 AM Interpretation: Performing Lab:[facility], [address] [place] [phone] Notes/Report: [place] Light Chain, Free Serum 81.7 3.3-19.4 mg/L Lambda Light Chain, Free Serum 38.9 5.7-26.3 mg/L [place]/Lambda Lt Ch Free Ratio 2.10 0.26-1.65 Free [...] these disorders. THIS TEST WAS PERFORMED AT: [facility] [address] [place] [phone] MAYRA CONNOLLY MD [place]/Lambda Light Chain Ser Reviewed date:07/06/2023 11:22:50 AM Interpretation: Performing Lab:[facility], [address] [place] [phone] Notes/Report: [place], Serum 330 176-443 mg/dL Lambda, Serum 194 91-240 mg/dL [place]/Lambda Ratio, Serum 1.70 1.29-2.55 This assay provides [...] and amyloidosis. THIS TEST WAS PERFORMED AT: [facility] [address] [place] [address] MONTANA COLLINS MD,PHD,RED Protein Electrophoresis, [facility] ([facility] Reviewed date:07/03/2023 04:14:26 AM Interpretation: Performing Lab:[facility], [address] [place] [phone] Notes/Report: Prot Elec - Total Protein 6.5 [...] be considered. THIS TEST WAS PERFORMED AT: [facility] [address] [phone] MAYRA CONNOLLY MD Complete Blood Count Auto Di ff Reviewed date:11/02/2023 11:07:48 AM Interpretation: Performing Lab:[facility], [address] [place] [phone] Notes/Report: White Blood Count 6.5 4.8-10.8 X10*3/uL [...] NRBC Abs Auto 0.000 0.0-0.012 X10*3/uL Comprehensive [place]. Panel Fa st Reviewed date:11/02/2023 11:07:48 AM Interpretation: Performing Lab:[facility], [address] [place] [phone] Notes/Report: Sodium 141 135-145 mmol/L Potassium 4.1 3.3-5.1 mmol/L Chloride 101 96-108 mmol/L Carbon Dioxide 31 22-29 mmol/L Anion Gap 13 12-20 Blood Urea Nitrogen 49 9-16 mg/dL Creatinine 1.35 0.5-1.4 mg/dL Estimated Glomerular Filt Rate 50 NOTE: For -Iraqi individuals, multiply the result by 1.210. Chronic [...] Panel Reviewed date:11/02/2023 11:07:48 AM Interpretation: Performing Lab:[facility], [address] [place] [phone] Notes/Report: Triglycerides 76 <150 mg/dL Desirable Triglyceride: [...] Antigen Reviewed date:11/02/2023 11:07:48 AM Interpretation: Performing Lab:[address] [address] Notes/Report: Prostate Specific Antigen < 0.10 <0.05-4.0 ng/mL PSA methodology: Isaac Alinity i Chemiluminescent Microparticle Immunoassay (CMIA) [place]/Lambda [place] Ch,Free w ra t Reviewed date:01/27/2024 09:04:55 AM Interpretation: Performing Lab:[facility], [address] [place] [phone] Notes/Report: [place] Light Chain, Free Serum 116.2 3.3-19.4 mg/L Lambda Light Chain, Free Serum 40.2 5.7-26.3 mg/L [place]/Lambda Lt Ch Free Ratio 2.89 0.26-1.65 Free [...] these disorders. THIS TEST WAS PERFORMED AT: [facility] [address] [place] [phone] MAYRA CONNOLLY MD [place]/Lambda Light Chain Ser um Reviewed date:01/27/2024 09:04:55 AM Interpretation: Performing Lab:[facility], [address] [place] [phone] Notes/Report: [place], Serum 439 176-443 mg/dL Lambda, Serum 236 91-240 mg/dL [place]/Lambda Ratio, Serum 1.86 1.29-2.55 This assay provides [...] and amyloidosis. THIS TEST WAS PERFORMED AT: [facility] [address] [place] [address] MONTANA COLLINS MD,PHD,RED Protein Electrophoresis, Ser um Reviewed date:11/06/2023 11:23:04 AM Interpretation: Performing Lab:[facility], [address] [place] [phone] Notes/Report: Prot Elec - Total Protein 7.3 [...] be considered. THIS TEST WAS PERFORMED AT: [facility] [address] [place] [phone] MAYRA CONNOLLY MD Immunofixation Pnl, Serum Reviewed date:11/06/2023 11:23:04 AM Interpretation: Performing Lab:[facility], [address] [place] [phone] Notes/Report: IgG 2023 600-1540 mg/dL IgA 196 70-320 mg/dL IgM 109 50-300 mg/dL THIS TEST WAS PERFORMED AT: [facility] [address] [place] [phone] MAYRA CNONOLLY MD Immunofixation Interpretation SEE NOTE IgG lambda monoclona l band present. Prostate Specific Antigen Reviewed date:02/27/2024 06:40:50 AM Interpretation: Performing Lab:[address] [address] Notes/Report: Prostate Specific Antigen < 0.10 <0.05-4.0 ng/mL PSA methodology: Advitechnity i Chemiluminescent Microparticle Immunoassay (CMIA) Reason For [...] Problem Status W/U Status Risk Notes Problem 3460648 Former smoker (Z87.891) Active confirmed He has a plan to prevent relapse and times of stress or illness. Problem Obesity (046842043) Obesity (E66.9) Active confirmed Problem Malignant tumor of prostate (002161924) Malignant neoplasm of prostate (C61) Active confirmed His P and 6 and a is stable and not rising. There was no sign of prostate cancer or urothelial carcinoma on today's examination. Problem Malignant tumor of urinary bladder (283014602) Malignant neoplasm of bladder, unspecified (C67.9) Active confirmed There was no sign at this time of metastatic or recurrent bbladder cancer. 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 The kappa lambda ratio is 37.6. His total protein is 7.1. He is stable at this time. Problem Obesity (018844245) Other obesity (E66.8) Active confirmed His body mass index is 36. Both legs are edematous. We discussed the elements of a sodium restricted, weight loss diet. Problem Obesity (776231316) Obesity, unspecified (E66.9) Active confirmed He has gained 17 pounds almost all of which is fluid retention. His diuretic was increased by cardiology recently. Problem Other male erectile dysfunction (N52.8) Active confirmed Thiss issue has been addressed with medication. Problem Benign prostatic hypertrophy without outflow obstruction (042261409) Benign prostatic hyperplasia without lower urinary tract symptoms (N40.0) Active confirmed He has been rising from sleep twice a night. This is partly due to his diuretic. We discussed lifestyle modification as a way of reducing nocturnal urination. He is switching his urology care to [facility]. Records will be forwarded. Vital Signs Heart Rate 69 /min 03/04/2024 Temperature 98.6 degrees Fahrenheit 03/04/2024 Blood pressure diastolic 70 mm Hg 03/04/2024 Height 63 in 03/04/2024 Blood pressure systolic 111 mm Hg 03/04/2024 Weight 206 lbs 03/04/2024 BMI 36.49 kg/m2 03/04/2024 Encounters Encounter Location Date Provider Diagnosis Chago Peres III, MD [address] [place] [address] [place] [address] 07/06/2023 Chago Peres Benign prostatic hyperplasia without lower urinary tract symptoms N40.0 ; Other male erectile dysfunction N52.8 ; Other obesity E66.8 ; Monoclonal gammopathy D47.2 ; Malignant neoplasm of bladder, unspecified C67.9 and Malignant neoplasm of prostate C61 Chago Peres III, MD [address] [place] [address] [place] [address] 11/06/2023 Chago Peres Benign prostatic hyperplasia without lower urinary tract symptoms N40.0 ; Monoclonal gammopathy D47.2 ; Malignant neoplasm of prostate C61 ; Malignant neoplasm of bladder, unspecified C67.9 ; Other male erectile dysfunction N52.8 ; Former smoker Z87.891 ; Obesity 278.00 and Peripheral edema R60.9 Chago Peres III, MD [address] [place] [address] [place] [address] 03/04/2024 Chago Peres Benign prostatic hyperplasia without [...] He is switching his urology care to [facility]. Records will be forwarded. 11/06/2023 Monoclonal gammopathy [...] He is switching his urology care to [facility]. Records will be forwarded. 03/04/2024 Monoclonal gammopathy [...] He is switching his urology care to [facility]. Records will be forwarded. 07/06/2023 Other obesity [...] C) 09/11/2019 PROFILE, FASTING (COMPREHENSIVE METABOLI C) 03/12/2019 PROFILE, FASTING (COMPREHENSIVE METABOLI C) 03/21/2023 PROFILE, FASTING (COMPREHENSIVE METABOLI C) 09/10/2018 PROFILE, FASTING (COMPREHENSIVE METABOLI C) 11/17/2022 PROFILE, FASTING (COMPREHENSIVE METABOLI C) 10/14/2020 PROFILE, FASTING (COMPREHENSIVE METABOLI C) 07/06/2023 PROFILE, FASTING (COMPREHENSIVE METABOLI C) 09/06/2017 PROFILE, FASTING (COMPREHENSIVE METABOLI C) 03/09/2017 PROFILE, FASTING (COMPREHENSIVE METABOLI C) 09/01/2016 PROFILE, RANDOM (COMPREHENSIVE METABOLIC ) 08/11/2022 PROFILE, RANDOM (COMPREHENSIVE METABOLIC ) 04/15/2020 PROFILE, RANDOM (COMPREHENSIVE METABOLIC ) 12/11/2019 PROFILE, RANDOM (COMPREHENSIVE METABOLIC ) 02/17/2021 PROFILE, RANDOM (COMPREHENSIVE METABOLIC ) 11/06/2023 PROFILE, RANDOM (COMPREHENSIVE METABOLIC ) 02/11/2016 PROFILE, RANDOM (COMPREHENSIVE METABOLIC ) 09/08/2022 PROFILE, RANDOM (COMPREHENSIVE METABOLIC ) 03/04/2024 PROFILE, RANDOM (COMPREHENSIVE METABOLIC ) 08/18/2021 PROFILE, RANDOM (COMPREHENSIVE METABOLIC ) 03/03/2022 PROFILE, RANDOM (COMPREHENSIVE METABOLIC ) 03/12/2018 LIPID PANEL 10/14/2020 LIPID PANEL 09/06/2017 LIPID PANEL 03/09/2017 LIPID PANEL 09/01/2016 LIPID PANEL 09/11/2019 LIPID PANEL 03/12/2019 LIPID PANEL 12/11/2019 LIPID PANEL 09/10/2018 LIPID PANEL 11/17/2022 LDH 09/11/2019 BRAIN NATRIURETIC PEPTIDE (BNP) 08/12/19 23 PSA, TOTAL 07/06/2023 PSA, TOTAL 10/14/2020 PSA, TOTAL 09/06/2017 PSA, TOTAL 03/09/2017 PSA, TOTAL 09/01/2016 PSA, TOTAL 08/11/2022 PSA, TOTAL 03/21/2023 PSA, TOTAL 11/06/2023 PSA, TOTAL 12/11/2019 PSA, TOTAL 09/11/2019 PSA, TOTAL 03/04/2024 PSA, TOTAL 09/10/2018 PSA, TOTAL 03/12/2018 CBC w DIFF 09/10/2018 CBC w DIFF 03/12/2018 CBC w DIFF 09/06/2017 CBC w DIFF 10/14/2020 CBC w DIFF 04/15/2020 CBC w DIFF 03/09/2017 CBC w DIFF 02/17/2021 CBC w DIFF 09/01/2016 CBC w DIFF 02/11/2016 CBC w DIFF 08/11/2022 CBC w DIFF 03/12/2019 CBC w DIFF 09/08/2022 CBC w DIFF 11/06/2023 CBC w DIFF 03/21/2023 CBC w DIFF 08/18/2021 CBC w DIFF 12/11/2019 CBC w DIFF 03/03/2022 CBC w DIFF 09/11/2019 CBC w DIFF 11/17/2022 SED RATE (ESR) 11/17/2022 IMMUNOFIXATION PANEL, SERUM (IEP) 2023 IMMUNOFIXATION PANEL, SERUM (IEP) 2021 IMMUNOFIXATION PANEL, SERUM (IEP) 2019 IMMUNOFIXATION PANEL, SERUM (IEP) 2019 IMMUNOFIXATION PANEL, SERUM (IEP) 2023 IMMUNOFIXATION PANEL, SERUM (IEP) 2017 IMMUNOFIXATION PANEL, SERUM (IEP) 2017 IMMUNOFIXATION PANEL, SERUM (IEP) 2020 IMMUNOFIXATION PANEL, SERUM (IEP) 2019 IMMUNOFIXATION PANEL, SERUM (IEP) 2016 IMMUNOFIXATION PANEL, SERUM (IEP) 2020 IMMUNOFIXATION PANEL, SERUM (IEP) 2016 IMMUNOFIXATION PANEL, SERUM (IEP) 2015 IMMUNOFIXATION PANEL, SERUM (IEP) 2022 IMMUNOFIXATION PANEL, SERUM (IEP) 2018 IMMUNOFIXATION PANEL, SERUM (IEP) 2022 IMMUNOFIXATION PANEL, SERUM (IEP) 2023 PROTEIN ELECTROPHORESIS, SERUM 3 PROTEIN ELECTROPHORESIS, SERUM 3 PROTEIN ELECTROPHORESIS, SERUM 4 PROTEIN ELECTROPHORESIS, SERUM 4 PROTEIN ELECTROPHORESIS, SERUM 2 PROTEIN ELECTROPHORESIS, SERUM 1 PROTEIN ELECTROPHORESIS, SERUM 3 PROTEIN ELECTROPHORESIS, SERUM 1 BETA-2 MICROGLOBULIN, SERUM 03/12/2019 BETA-2 MICROGLOBULIN, SERUM 02/17/2021 IMMUNOFIXATION PANEL RAND UR (IEP) 03/21 FREE KAPPA LAMBDA, SERUM K/L RATIO 08/11 FREE KAPPA LAMBDA, SERUM K/L RATIO 03/03 FREE KAPPA LAMBDA, SERUM K/L RATIO 09/08 FREE KAPPA LAMBDA, SERUM K/L RATIO 11/05 FREE KAPPA LAMBDA, SERUM K/L RATIO 03/21 FREE KAPPA LAMBDA, SERUM K/L RATIO 02/17 FREE KAPPA LAMBDA, SERUM K/L RATIO 07/06 FREE KAPPA LAMBDA, SERUM K/L RATIO 08/18 FREE KAPPA LAMBDA, SERUM K/L RATIO 10/14 KAPPA LAMBDA SER 10/14/2020 KAPPA LAMBDA SER 08/11/2022 KAPPA LAMBDA SER 03/03/2022 KAPPA LAMBDA SER 09/08/2022 KAPPA LAMBDA SER 11/06/2023 KAPPA LAMBDA SER 03/21/2023 KAPPA LAMBDA SER 02/17/2021 KAPPA LAMBDA SER 08/18/2021 KAPPA LAMBDA SER 07/06/2023 CBC WITH AUTO DIFF 03/04/2024 CBC WITH AUTO DIFF 07/06/2023 Lipid Panel 03/21/2023 Lipid Panel 07/06/2023 Beta-2 Microglobulin, Serum 03/03/2022 Protein Electrophoresis, Serum Protein Electrophoresis, Serum Immunofixation Pnl, Serum 03/03/2022 Next Appt Details Provider Name:Chago Peres, 07/04/2024 11:00:00 AM, [address] [place] [address] DR, [facility] [address], [place], [address], Insurance Providers Payer Name Payer Address Payer Phone Subscriber Number Group Number Insured Name Patient Relationship to Insured Coverage Start Date Coverage End Date MEDICARE NGS [address] [place] [phone] [id number] Jung Funes Self - patient is the insured [address] [place] [address] [id number] Jung Funes Self - patient is the insured Medical (General) History Medical History History ICD Code benign prostatic hyperplasia (BPH) erectile dysfunction MGUS bladder cancer prostate cancer Surgical History Surgery Date(Month/Year) Vericose veins removal 02/2019
--- OUTSIDE RECORDS SUMMARY | 2024-05-22 13:08 | XMS_ITS ---
Author Organization Chago Peres III, MD Address [address] [place] [address] Care Team Providers Care Night Guard Name Role Phone HAZEL DAVIS MD Primary Care Provider Chago De La Cruz Unavailable [phone] Allergies Allergen (clinical drug ingredient) Drug/Non Drug [...] Provider Diagnosis Chago Peres III, MD [address] [place] [address] [place] [address] 03/04/2024 Chago Peres Benign prostatic hyperplasia without [...] He is switching his urology care to [facility]. Records will be forwarded. 03/04/2024 Monoclonal [...] Provider Name:Chago Peres, 07/04/2024 11:00:00 AM, [address] [place] [address] , [place] [address], [place], [address], Progress Notes * Jung FUNES CDOB:[birth year] (83 yo M)Acc No.[id number]:03/04/2024 Progress Notes Patient:?Jung Funes Provider:?Chago Peres MD :1940???Age:83 Y???Sex:Male Gagan e:03/04/2024 Address:[address] [place] [address], [facility] Pcp:HAZEL DAVIS MD Subjective: * Chief Complaints: * ???Peripheral edemaObesityMo noclonal gammopathyBenign prostatic hypertrophyBladder cancerProstate cancer * HPI: ???COVID-19 Screening:? He returns for oncology surveillance. He has gained 17 pounds since his last visit. He went to the obstetrician last week and his furosemide dose was increased to 80 mg a day. He admits to nocturia twice a night. He went to the emergency room at [facility] last night because of a hemorrhage from [...] He is switching his urology care to [facility]. Records will be forwarded.?2.?Monoclonal gammopathy - D47.2, [...] Provider:?Chago Peres MD Date:?02/10 Generated for Roe holbrook/Tato/eTcolumbasmitting on:?05/22/2024 01:08 PM EST History and Physical Notes * HPI (History of Present Illness) Category Sub-Category Detail Notes COVID-19 Screening Questions Have you had any new onset fever, chills, cough, congestion, sore throat, shortness of breath, muscle aches?: No Have you been exposed to the [...]
--- OUTSIDE RECORDS SUMMARY | 2024-05-22 13:08 | XMS_ITS ---
Author Organization Chago Peres III, MD Address [address] [place] [address] Care Team Providers Care Patient Registration Representative Name Role Phone HAZEL DAVIS MD Primary Care Provider Chago De La Cruz [facility] [phone] Allergies Allergen (clinical drug ingredient) Drug/Non Drug [...] Date Provider Diagnosis Chago Peres III, MD [address] [place] [address] [place] [address] 07/06/2023 Chago Peres Benign prostatic hyperplasia without [...] He is switching his urology care to [facility]. Records will be forwarded. 07/06/2023 Other [...] OV Provider Name:Chago Peres, 07/04/2024 11:00:00 AM, [address] [place] [address] [address] [facility] [place], [place], [address], Progress Notes * Jung FUNES CDOB:[birth year] (83 yo M)Acc No.[id number]:07/06/2023 Progress Notes Patient:?Jung Funes Provider:?Chago Peres MD :1940???Age:83 Y???Sex:Male Gagan e:07/06/2023 Address:[address] [place] [address], [facility] [id number] Pcp:HAZEL DAVIS MD Subjective: * Chief Complaints: [...] past??No ? He wwas recently in the [facility] for 33 days for cardiovascular issues. [...] mg/dL) 9.2 (Ref Range: 8.4-10.2 mg/dL) * Lab:[place]/Lambda Lt Ch,Free w rat * Order Date 06/28/2023 11/08/2022 08/11/2022 [place] Light Chain, Free Serum 81.7?A (Ref Range: 3.3-19.4 mg/L) 54.6?A (Ref Range: 3.3-19.4 mg/L) 58.4?A (Ref Range: 3.3-19.4 mg/L) Lambda Light Chain, Free Serum 38.9?A (Ref Range: 5.7-26.3 mg/L) 27.9?A (Ref Range: 5.7-26.3 mg/L) 31.8?A (Ref Range: 5.7-26.3 mg/L) [place]/Lambda Lt Ch Free Ratio 2.10?A (Ref Range: 0.26-1.65) 1.96?A (Ref Range: 0.26-1.65) 1.84?A (Ref Range: 0.26-1.65) * Lab:[place]/Lambda Light Chain Serum * Order Date 06/28/2023 11/08/2022 08/11/2022 [place], Serum 330 (Ref Range: 176-443 mg/dL) 276 (Ref Range: 176-443 mg/dL) 301 (Ref Range: 176-443 mg/dL) Lambda, Serum 194 (Ref Range: 91-240 mg/dL) 203 (Ref Range: 91-240 mg/dL) 218 (Ref Range: 91-240 mg/dL) [place]/Lambda Ratio, Serum 1.70 (Ref Range: 1.29-2.55) 1.36 [...] mass , centripital obesity.?RECTAL EXAM:?not examined.?MUSCULOSKELETAL:?Pitting edema fpc up to the knees.?PERIPHERAL PULSES:?normal.?NEUROLOGIC:?alert and oriented, [...] He is switching his urology care to [facility]. Records will be forwarded.?2.?Other male erectile [...] Provider:?Chago Peres MD Date:?06/12 Generated for Printi ng/Tato/eTransmitting on:?05/22/2024 01:08 PM EST History and Physical Notes * HPI (History of Present Illness) Category Sub-Category Detail Notes COVID-19 Screening Questions Have you had any new onset fever, chills, cough, congestion, sore throat, shortness of breath, muscle aches?: No Have you been exposed to the virus withi n the last 10 days?: No Have you travelled internationally in [facility] last 10 days?: No Have you been [...]
--- OUTSIDE RECORDS SUMMARY | 2024-05-22 13:08 | XMS_ITS ---
Author Organization Chago Peres III, MD Address [address] [address] Care Team Providers Care Race Relations Professor Name Role Phone HAZEL DAVIS MD Primary Care Provider Chago De La Cruz Unavailable [phone] Allergies Allergen (clinical drug ingredient) Drug/Non Drug [...] Status W/U Status Risk Notes Problem Obesity (986611235) Obesity (E66.9) Active confirmed Vital Signs Temperature 97.6 degrees Fahrenheit 11/06/19 24 Blood pressure systolic 128 mm Hg 11/06/19 24 Blood pressure diastolic 66 mm Hg 024 Heart Rate 67 /min 11/06/2023 Height 63 in 11/06/2023 Weight 189 lbs 11/06/2023 BMI 33.48 kg/m2 11/06/2023 Encounters Encounter Location Date Provider Diagnosis Chago Peres III, MD [address] [place] [address] [place] [address] 11/06/2023 Chago Peres Benign prostatic hyperplasia without [...] He is switching his urology care to [facility]. Records will be forwarded. 11/06/2023 Monoclonal [...] labs Provider Name:Chago Peres, 07/04/2024 11:00:00 AM, [address] [place] [address] DR, [address], [facility] [place], [address], Progress Notes * Jung FUNES CDOB:[birth year] (83 yo M)Acc No.[id number]:11/06/2023 Progress Notes Patient:?Jung Funes Provider:?Chago Peres MD :1940???Age:83 Y???Sex:Male Gagan e:11/06/2023 Address:[address] [place] [address], [id number] Pcp:HAZEL DAVIS MD Subjective: [...] HR:67, Temp:97.6, Wt-k.73. * ???Past Orders: Lab:[facility]. Laminee l Fast * Order Date 11/01/2023 [...] He is switching his urology care to [facility]. Records will be forwarded.?2.?Monoclonal gammopathy - [...] status: Completed true * Provider:?Chago Peres MD Date:?10/10 Generated for Printi ng/Tato/eTransmitting on:?05/22/2024 01:08 PM [...] atraumatic, normocep halic EYES: eomi, perrla, anicte wgen, conjugate EARS: normal NOSE: septum intact NECK/THYROID: [...]
[2024-05-22 13:09] VITALS: BMI 32.8
--- NOTE | 2024-05-22 13:09 | MHC.OFFVIS ---
Vital Signs 05/22/24 13:09 Height 5 ft 8 in Weight 216 lb BMI 32.8 Intake Visit Reasons: follow up s/p R leg US 05/13/24 Intake Note: follow up US 05/13/24 right LE for LE weeping. States he still has weeping but not as severe. Started it started in the Left LE. Accompanied by: Daughter Allergies No Known Allergies Allergy (Verified 05/22/24 14:17) HPI HPI follow up s/p R leg US 05/13/24: Details: Very pleasant 83-year-old gentleman presents for follow-up regarding his right lower extremity. In the interim on April 20 he was actually admitted to the hospital for sepsis volume overload secondary to his Congestive heart failure. He was treated and subsequently discharged on 04/26. He reports he has been doing significantly better since that time. He continues to have significantly edematous lower extremities. Right side has improved and left side has some serous drainage. He now presents to us for follow-up. [facility] Medical History Fatty liver Chronic kidney disease, stage 3 Persistent atrial fibrillation Bilateral lower extremity edema SHALONDA (obstructive sleep apnea) Cardiomyopathy Pulmonary hypertension Pacemaker Nonrheumatic tricuspid (valve) insufficiency Chronic right heart failure Current use of anticoagulant therapy Anticoagulated on Coumadin Right rib fracture CHF (congestive heart failure) Nocturnal hypoxemia Peripheral edema Annual physical exam Left tennis elbow Essential hypertension PAF (paroxysmal atrial fibrillation) History of hydrocele Nocturia Bladder outlet obstruction Bladder cancer Prostate cancer Hyperlipidemia HTN (hypertension) Normally functioning cardiac pacemaker present Varicose veins of bilateral lower extremities with other complications Surgical History History of hydrocelectomy Hx of varicose vein stripping Hx of subdural hematoma History of phacoemulsification of cataract of both eyes with intraocular lens implantation Hx of cardiac pacemaker Hx of colonoscopy Hx of parathyroidectomy Hx of cystoscopy Family History Father Cancer Prostate cancer Mother Cancer, Onset Age: 85 Son No problems noted. Daughter No problems noted. Maternal Grandfather No problems noted. Maternal Grandmother No problems noted. Paternal Grandfather No problems noted. Paternal Grandmother No problems noted. Social History Household Members: Spouse Housing: House Are you a primary personal care service provider to a significant other at home: No Do you presently have visiting nurse or other home services: No Alcohol intake: current Alcohol intake frequency: holidays/special occasions only Alcohol type: wine Patient Tobacco Use Status: Never used Tobacco e-Cigarette/Vaping Use: Never Used Advance Directives Date on File: 05/02/21 service: No Current occupational status: retired Cognitive needs: No Hearing needs: No Vision needs: Yes Review of Systems Const Reports as per HPI ENT Reports no additional complaints Card Denies chest pain, Denies chest pain at rest and Denies chest pain with activity Resp Denies chest congestion and Denies cough GI Reports no additional complaints Musc Details: pain over varicosities, aching of lower extremities, swelling, cramping, heaviness and tiredness, itching Denies abnormal gait Skin/Breast Reports pruritus and Denies wounds Neuro Reports no additional complaints and Denies abnormal gait Psych Denies no additional complaints Physical Exam Vital Signs: BMI result Body Mass Index 32.8 Const General: cooperative, healthy appearing and comfortable Orientation/consciousness: oriented to person, oriented to place and oriented to time Neck Carotids: no bruits Chest Chest palpation & inspection: normal inspection of the chest and normal palpation of entire chest wall Resp Effort & Inspection: normal respiratory effort and able to speak in complete sentences Cardio Rate: regular rate Heart sounds: S1 normal heart sound present and S2 normal heart sound present Peripheral pulses: Peripheral pulses 2+ throughout GI Inspection: Yes normal to inspection Skin Other: +2 edema, large rope-like varicosities greater than 4 mm CEAP Classification C6 - open ulcers Ep - Etiology Primary As - superficial veins P - reflux General skin exam: dry skin Neuro General: oriented to person, oriented to place and oriented to time Extrem Right lower extremity: full ROM, normal capillary refill and edema Left lower extremity: full ROM, normal capillary refill and edema Psych Mental Status: mental status grossly normal Results Reviewed Results Reviewed: Brief summary of venous insufficiency testing is as follows: right great saphenous vein: Positive knee on down right small saphenous vein: negative right accessory vein: none present Please note there is no evidence of any venous aneurysms or significant tortuosity Assessment & Plan Assessment & Plan (1) Varicose veins of right lower extremity with inflammation: Comment: 02/16/2023 right great saphenous vein Cyanoacralate ablation 04/02/2023 - right leg operative microphlebectomy Code(s): I83.11 - Varicose veins of right lower extremity with inflammation Category: Medical Plan: This patient has varicose veins with inflammation. They continue to be a source of discomfort for the patient. The patient has tried conservative treatment with compression, leg elevation and exercise program for over 3 months time. They have been compliant with all treatment. This has provided minimal relief for the patient. I do not anticipate this course of treatment will alter the underlying etiology. The patient has been scheduled for lower extremity venous treatment inclusive of --- right great saphenous vein Cyanoacralate ablation. Risks, benefits, and complications of this procedure has been discussed in detail with the patient including but not limited to bleeding, infection, and the development of a DVT. The patient has demonstrated a clear understanding and has consented. We will schedule the patient as soon as possible. Thank you for allowing us to participate in this patient's care. If there are any questions or concerns please do not hesitate to contact us. Coding Level of Care Code Est Pt Level 4 (76203) Diagnoses Varicose veins of right lower extremity with inflammation I83.11
== END 2024-05-22 13:51 | disposition home or self-care (01) ==
PROVIDERS: PCP Internal Medicine; Visit Provider Surgery Vascular Surgery
DX: I83.11 Varicose veins of right lower extremity with inflammation (principal)
CPT/HCPCS: 99214

== ENCOUNTER 2024-05-22 13:05 | Outpatient (REF) | payer MEDICARE, OTHER, SELFPAY ==
[2024-05-22 16:29] LABS: INTERNATIONAL NORM RATIO 1.7 (0.9-1.1); Prothrombin Time 19.5 SEC (10.9-12.4)
[2024-05-22 16:31] LABS: Partial Thromboplastin Time 36.5 SEC (26.0-36.8)
== END 2024-05-22 13:06 | disposition home or self-care (01) ==
LOC: HO.LAB 13:05
PROVIDERS: PCP Internal Medicine; Referring Provider Internal Medicine Hypertension Specialist; Visit Provider Surgery Vascular Surgery
DX: D47.2 Monoclonal gammopathy (principal); N18.32 Chronic kidney disease, stage 3b; N17.9 Acute kidney failure, unspecified; N32.0 Bladder-neck obstruction; I83.11 Varicose veins of right lower extremity with inflammation
CPT/HCPCS: 36415; 85610; 85730; 99212

== ENCOUNTER 2024-05-22 14:11 | Outpatient (AMB) | payer MEDICARE, OTHER, SELFPAY ==
[2024-05-22 14:14] VITALS: BP 112/64; PULSE 73; O2SAT 95; BMI 30.7
--- NOTE | 2024-05-22 14:14 | HO.NEPHOV ---
Vital Signs 05/22/24 14:14 Height 5 ft 8 in Weight 202 lb BMI 30.7 BP 112/64 Blood Pressure Location Lt brachial Position Sitting Pulse 73 Pulse Source Pulse Oximeter Pulse Oximetry (%) 95 Oxygen Delivery Method Room Air Intake Visit Reasons: Pt missed 04/21/24 appointment/ JB/ LVM Computer Support Specialist Required: No Accompanied by: Daughter Allergies No Known Allergies Allergy (Verified 05/22/24 14:17) Medication List - Last Reconciled 05/22/24 by Dread Justice MD amiodarone 200 mg PO DAILY apixaban (Eliquis) 2.5 mg PO BID calcium carbonate-vitamin D3 600 mg-5 mcg (200 unit) 1 tab PO DAILY cholecalciferol (vitamin D3) 25 mcg PO DAILY ferrous sulfate 325 mg PO DAILY furosemide 80 mg PO 2XD metolazone 2.5 mg PO MO multivitamin 1 tab PO DAILY potassium chloride ER 40 mEq (2 x 20 mEq) PO BID 90 days tamsulosin 0.4 mg PO BEDTIME 90 days tramadol 25 mg (1/2 x 50 mg) PO Q12H PRN HPI Comments Details: Monica is a pleasant 83-year-old man who has been referred for acute kidney injury and resistant edema He is on escalating dose of 3 diuretics and there has been no improvement in the edema. He has developed JB with contraction alkalosis. Baseline creatinine has been around 1.2 mg/dL which has increased to 2.3 mg/dL Has a history of cardiomyopathy and non rheumatic tricuspid regurgitation. He has a history of atrial fibrillation and currently on anticoagulation. Echocardiogram in 06/30/2023 showed mildly reduced LV ejection fraction of 45-50%. Moderately dilated right ventricle with moderately reduced RV systolic function Biatrial enlargement with severe left atrial enlargement Moderate elevation of right ventricular systolic pressure. History of bladder cancer and prostate cancer. History of bladder outlet obstruction in the past. He has anemia. 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 Recently hospitalized for septic shock. Continues to have significant edema in legs and scrotum. 05/22/2024. Jung feeling better today he was lost about 10 lb.. Scheduled for kidney biopsy next week. [facility] Medical History Fatty liver Chronic kidney disease, stage 3 Persistent atrial fibrillation Bilateral lower extremity edema SHALONDA (obstructive sleep apnea) Cardiomyopathy Pulmonary hypertension Pacemaker Nonrheumatic tricuspid (valve) insufficiency Chronic right heart failure Current use of anticoagulant therapy Anticoagulated on Coumadin Right rib fracture CHF (congestive heart failure) Nocturnal hypoxemia Peripheral edema Annual physical exam Left tennis elbow Essential hypertension PAF (paroxysmal atrial fibrillation) History of hydrocele Nocturia Bladder outlet obstruction Bladder cancer Prostate cancer Hyperlipidemia HTN (hypertension) Normally functioning cardiac pacemaker present Varicose veins of bilateral lower extremities with other complications Surgical History History of hydrocelectomy Hx of varicose vein stripping Hx of subdural hematoma History of phacoemulsification of cataract of both eyes with intraocular lens implantation Hx of cardiac pacemaker Hx of colonoscopy Hx of parathyroidectomy Hx of cystoscopy Family History Father Cancer Prostate cancer Mother Cancer, Onset Age: 85 Son No problems noted. Daughter No problems noted. Maternal Grandfather No problems noted. Maternal Grandmother No problems noted. Paternal Grandfather No problems noted. Paternal Grandmother No problems noted. Social History Household Members: Spouse Housing: House Are you a primary regular senior care provider to a significant other at home: No Do you presently have visiting nurse or other home services: No Alcohol intake: current Alcohol intake frequency: holidays/special occasions only Alcohol type: wine Patient Tobacco Use Status: Never used Tobacco e-Cigarette/Vaping Use: Never Used Advance Directives Date on File: 05/02/21 service: No Current occupational status: retired Cognitive needs: No Hearing needs: No Vision needs: Yes Physical Exam Vital Signs: Last Vital Signs Pulse 73 05/22/24 14:14 BP 112/64 05/22/24 14:14 Pulse Ox 95 05/22/24 14:14 Oxygen Delivery Method Room Air 05/22/24 14:14 BMI result Body Mass Index 30.7 Const General: comfortable; No acute distress Orientation/consciousness: patient oriented x3 Eyes General: appearance normal, both eyes and all related structures Visual Martin: normal visual martin by confrontation Neck Neck: Yes supple and Yes no JVD Resp Effort & Inspection: normal respiratory effort and respiratory effort not decreased Auscultation: rhonchi Cardio Palpation: no palpable S3 and no palpable S4 Heart sounds: no rubs GI Inspection: Yes normal to inspection Palpation (GI): Soft to palpation Percussion: Yes normal to percussion Auscultation: normal bowel sounds General: Yes no CVA tenderness Back/Spine/Pelvis Back: no CVA tenderness Skin General skin exam: no petechiae and no purpura Neuro General: patient oriented x3 and no focal motor deficits Extrem General: No clubbing and Yes edema (Massive edema with weeping leg wounds. Scrotal edema) Results Reviewed Nephrology Results: No Data to Display Assessment & Plan Assessment & Plan (1) Monoclonal gammopathy: Code(s): D47.2 - Monoclonal gammopathy Category: Medical (2) Chronic kidney disease, stage 3: Code(s): N18.30 - Chronic kidney disease, stage 3 unspecified Category: Medical Qualifiers: Chronic kidney disease stage 3 subtype: stage 3b (GFR 30-44) Qualified Code(s): N18.32 - Chronic kidney disease, stage 3b (3) JB (acute kidney injury): Code(s): N17.9 - Acute kidney failure, unspecified Category: Medical (4) JB (acute kidney injury): Code(s): N17.9 - Acute kidney failure, unspecified Category: Medical (5) Bladder outlet obstruction: Code(s): N32.0 - Bladder-neck obstruction Category: Medical Plan Jung has acute kidney injury with resistant edema in the setting of right heart failure. 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 Obstructive uropathy should certainly be ruled out given the history of bladder cancer and bladder outlet obstruction Massive lower extremity and scrotal edema primarily due to right heart failure. Recommendations Stay on low-sodium diet Keep current diuretics for the time being. Await kidney biopsy in view of the monoclonal gammopathy and positive p-ANCA. Avoid NSAIDs. We will give a trial of tramadol for pain control. Discussed with family. Orders: Orders Complete Blood Count no Diff 1 Week D47.2 - Monoclonal gammopathy Basic Metabolic Panel 1 Week D47.2 - Monoclonal gammopathy Coding Level of Care Code Est Pt Level 4 (83297) Diagnoses Monoclonal gammopathy D47.2 Stage 3b chronic kidney disease N18.32 Chronic kidney disease stage 3 subtype: stage 3b (GFR 30-44) JB (acute kidney injury) N17.9 Bladder outlet obstruction N32.0
== END 2024-05-22 14:39 | disposition home or self-care (01) ==
PROVIDERS: PCP Internal Medicine; Visit Provider Internal Medicine Hypertension Specialist
DX: D47.2 Monoclonal gammopathy (principal); N17.9 Acute kidney failure, unspecified; N18.32 Chronic kidney disease, stage 3b; N32.0 Bladder-neck obstruction
CPT/HCPCS: 99214

== ENCOUNTER 2024-05-29 12:54 | Inpatient (IN) | payer MEDICARE, OTHER, SELFPAY ==
[2024-05-29] VITALS (33 sets, daily range): BP systolic 93–136; BP diastolic 47–78; PULSE 66–78; RESP 11–22; TEMP 36.1–36.7; O2SAT 94–98; BMI 34.2
--- NOTE | ~2024-05-29 | CT_ITS ---
EXAMINATION: CT ABDOMEN WITHOUT CONTRAST CLINICAL INFORMATION: Back pain following renal biopsy. COMPARISON: CT renal biopsy dated 05/29/[address] abdomen/pelvis dated 04/19/2024. TECHNIQUE: Contiguous axial thin section helical images of the abdomen were performed without contrast. The data set was reformatted in the coronal and sagittal planes and reviewed on an independent workstation. This CT examination was performed using dose optimization techniques as appropriate, variously including the following: *Automated exposure control *Adjustment of mA and/or kV according to patient size (this includes techniques or standardized protocols for targeted exams where dose is matched to indication/reason for exam; i.e. extremities or head) *Use of iterative reconstruction technique DLP: 479 mGy-cm FINDINGS: LUNG BASES: Bibasilar dependent atelectasis. Focal subpleural thickening along the right chest wall, which is increased when compared to prior examinations dating back to 05/20/2023. This is adjacent to the chronic rib fracture and is likely posttraumatic, representing scar tissue. Partially visualized cardiomegaly. LIVER, GALLBLADDER, BILIARY TREE: Normal hepatic size, contour, and echogenicity. No focal parenchymal lesion. No intrahepatic biliary ductal dilatation. Layering hyperdensity within the gallbladder, consistent with cholelithiasis. No wall thickening or inflammatory change. PANCREAS: Diffuse atrophy and fatty replacement. SPLEEN: Unremarkable. ADRENAL GLANDS AND KIDNEYS: Unremarkable adrenal glands. There is a heterogeneous, hyperdense collection along the lateral aspect of the left kidney measuring approximately 7.1 x 4.6 x 8.2 cm. Given the patient's history of recent renal biopsy, findings are consistent with a subcapsular hematoma. Multiple bilateral renal hyperdense and hypodense lesions, similar when compared to the prior CT. Evaluation is significantly limited without IV contrast. BOWEL LOOPS: Colonic diverticulosis without evidence of acute diverticulitis. The visualized upper abdominal bowel loops are nondilated without evidence of bowel obstruction. PERITONEAL CAVITY: Trace perihepatic free fluid, new when compared to the prior examination. No upper abdominal free air. LYMPH NODES: Central mesenteric stranding without significant lymphadenopathy, slightly more prominent when compared to the prior CT. VASCULAR: No abdominal aortic dilatation or dissection. Atherosclerotic calcifications. BONES: Redemonstration of chronic right-sided rib fractures. No acute fracture. CT/CT abdomen wo IV con IMPRESSION: 1. Heterogeneous, hyperdense collection along the lateral aspect of the left kidney, measuring approximately 7.1 x 4.6 x 8.2 cm. Given the patient's history of recent renal biopsy, findings are consistent with a subcapsular hematoma. 2. Multiple bilateral renal hyperdense and hypodense lesions, similar when compared to the prior CT. Evaluation significantly limited without IV contrast. 3. Trace perihepatic free fluid, new when compared to the prior examination. No intra-abdominal free air. 4. Cholelithiasis without evidence of acute cholecystitis. 5. Diverticulosis without evidence of acute diverticulitis. 6. Central mesenteric stranding without significant lymphadenopathy, slightly more prominent when compared to the prior CT. Fleischner guidelines were followed. Electronically signed by: Luis Otero MD 05/30/2024 10:41 PM DEDE
--- NOTE | ~2024-05-29 | CT_ITS ---
Acute kidney injury. Monoclonal gammopathy,+ p-anca. Nephrology requests a renal biopsy. PROCEDURES: 1. Limited preprocedure CT of the abdomen. Permanent images saved in PACS. 2. CT-guided non-targeted biopsy of the left kidney. 3. Limited postprocedure CT of the abdomen. Permanent images saved in PACS. CLINICIANS: Bashir Moore PA-C MEDICATIONS: -Versed 1 mg, Fentanyl 50 mcg, and lidocaine 1% 10 mL SQ -Antibiotics: None -For additional details, please see nursing flowsheet. COMPLICATIONS: None ESTIMATED BLOOD LOSS: < 5 ml CONTRAST: None SPECIMENS: 3 x 18 g cores were placed in saline MODERATE SEDATION TIME: 20 min PROCEDURE NOTE: The procedure, risks, benefits, and alternatives were carefully explained to the patient and written informed consent was obtained. The patient was placed prone on the CT table. A timeout was performed. A limited CT of the abdomen was performed to localize the left kidney and choose appropriate needle entry and trajectory. The patient was prepped and draped in usual sterile fashion. The skin and deeper soft tissues were anesthetized with lidocaine. Under CT guidance, a 17 gauge trocar needle was advanced to the left kidney. An 18 gauge biopsy device was inserted through the trocar needle advanced into the left lower pole of the kidney. A total of 3, 18 gauge cores were performed. The specimens were placed in saline. A Gelfoam slurry was then administered through the trocar needle and into the left perinephric space. The needle was removed. A dry dressing was applied and secured with Tegaderm. There were no immediate complications. The patient was stable after the procedure and was transferred to the post anesthesia care unit. The procedure was done under moderate sedation with a dedicated nurse for monitoring of vital signs. CT/CT biopsy renal LT Impression: CT-guided non-targeted left renal biopsy This procedure was performed by Bashir Moore PA-C and supervised by Dr. Soni. Electronically signed by: Yobany Soni MD 06/02/2024 05:24 PM [facility]E
--- NOTE | ~2024-05-29 | US_ITS ---
EXAMINATION: US RETROPERITONEAL LIMITED (RENAL ONLY) CLINICAL INFORMATION: Acute kidney injury. Recent renal biopsy. COMPARISON: CT abdomen and pelvis 05/29/2024. Ultrasound renal 04/09/2024. Ultrasound abdomen 04/20/2022. TECHNIQUE: Real-time imaging of the kidneys. FINDINGS: RIGHT KIDNEY: 11.0 x 5.8 x 4.8 cm (SAG x AP x TRV). Normal renal size and contour. Increased parenchymal echogenicity with cortical thinning. Renal cortical thickness is normal. No renal calculi or hydronephrosis. Simple upper pole cyst measuring up to 3.8 cm. Findings are not clinically significant and no dedicated follow-up imaging is recommended. LEFT KIDNEY: 11.4 x 6.5 x 5.8 cm (SAG x AP x TRV). The kidney is normal in size, contour, and echogenicity. Renal cortical thickness is normal. There is an echogenic focus adjacent to the posterior aspect of the lower pole. No calcifications on the recent CT. Findings may be artifactual. No hydronephrosis. Subcapsular heterogeneous echogenicity along the lateral aspect of the left kidney measuring up to 8.9 x 2.6 x 4.9 cm. Findings are consistent with a subcapsular hematoma. US/US renal BI IMPRESSION: 1. Left subcapsular hematoma measuring up to 8.9 cm. 2. No hydronephrosis or nephrolithiasis. 3. Increased right renal cortical echogenicity with cortical thinning, which can be seen in the setting of medical renal disease. Electronically signed by: Luis Otero MD 05/30/2024 10:34 PM DEDE
--- OUTSIDE RECORDS SUMMARY | 2024-05-29 09:14 | XMS_ITS ---
Author Organization Chago Peres III, MD Address [address] [place] [address] Care Team Providers Care Office Mover Name Role Phone HAZEL DAVIS MD Primary Care Provider Chago De La Cruz Unavailable [phone] Allergies Allergen (clinical drug ingredient) Drug/Non Drug [...] Date Provider Diagnosis Chago Peres III, MD [address] [place] [address] [address] [facility] [place] [address] 03/04/2024 Chago Peres Benign prostatic hyperplasia without [...] He is switching his urology care to [facility]. Records will be forwarded. 03/04/2024 Monoclonal [...] visit Provider Name:Chago Peres, 07/04/2024 11:00:00 AM, [address] [place] [address] , [place] [address], [place], [address], Progress Notes * Jung FUNES CDOB:[birth year] (83 yo M)Acc No.[id number]:03/04/2024 Progress Notes Patient:?Jung Funes Provider:?Chago Peres MD :1940???Age:83 Y???Sex:Male Gagan e:03/04/2024 Address:[address] [place] [address], [id number] Pcp:HAZEL DAVIS MD Subjective: * Chief Complaints: * ???Peripheral edemaObesityMo noclonal gammopathyBenign prostatic hypertrophyBladder cancerProstate cancer * HPI: ???COVID-19 Screening:? He returns for oncology surveillance. He has gained 17 pounds since his last visit. He went to the [facility] last week and his furosemide dose was increased to 80 mg a day. He admits to nocturia twice a night. He went to the emergency room at [facility] last night because of a hemorrhage [...] He is switching his urology care to [facility]. Records will be forwarded.?2.?Monoclonal gammopathy - [...] Provider:?Chago Peres MD Date:?02/10 Generated for Roe holbrook/aTto/eTcolumbasmitting on:?05/29/2024 09:14 AM EST History and Physical Notes * HPI [...]
--- OUTSIDE RECORDS SUMMARY | 2024-05-29 09:15 | XMS_ITS ---
Author Organization Chago Peres III, MD Address [address] [place] [address] Care Team Providers Care Highway Patrol Officer Name Role Phone HAZEL DAVIS MD Primary Care Provider Chago De La Cruz Unavailable [phone] Allergies Allergen (clinical drug ingredient) Drug/Non Drug [...] Status W/U Status Risk Notes Problem Obesity (899242376) Obesity (E66.9) Active confirmed Vital Signs Temperature 97.6 degrees Fahrenheit 11/06/19 24 Blood pressure systolic 128 mm Hg 11/06/19 24 Blood pressure diastolic 66 mm Hg 024 Heart Rate 67 /min 11/06/2023 Height 63 in 11/06/2023 Weight 189 lbs 11/06/2023 BMI 33.48 kg/m2 11/06/2023 Encounters Encounter Location Date Provider Diagnosis Chago Peres III, MD [address] [place] [address] [place] [address] 11/06/2023 Chago Peres Benign prostatic hyperplasia without [...] He is switching his urology care to [facility]. Records will be forwarded. 11/06/2023 Monoclonal [...] labs Provider Name:Chago Peres, 07/04/2024 11:00:00 AM, [address] [place] [address] [address], [address], [place], [address], Progress Notes * Jung FUNES CDOB:[birth year] (83 yo M)Acc No.[id number]:11/06/2023 Progress Notes Patient:?Jung Funes Provider:?Chago Peres MD :1940???Age:83 Y???Sex:Male Gagan e:11/06/2023 Address:[address] [place] [address], [id number] Pcp:HAZEL DAVIS MD Subjective: [...] HR:67, Temp:97.6, Wt-k.73. * ???Past Orders: Lab:[facility]. Laminee l Fast * Order Date 11/01/2023 [...] He is switching his urology care to [facility]. Records will be forwarded.?2.?Monoclonal gammopathy - [...] Peres MD Date:?10/10 Generated for Printi ng/Tato/eTransmitting on:?05/29/2024 09:14 AM EST History and Physical [...]
--- OUTSIDE RECORDS SUMMARY | 2024-05-29 09:15 | XMS_ITS | Patient Health Record ---
Author Organization Chago Peres III, MD Address [address] [place] [address] Care Team Providers Care Bar Hostess Name Role Phone HAZEL DAVIS MD Primary Care Provider Chago De La Cruz Unavailable [phone] Allergies Allergen (clinical drug ingredient) Drug/Non Drug Allergy documented on EMR Reaction Allergy Type Onset Date Status No Known Drug Allergy Unknown Drug Allergy Active Results Component Value Reference Range Notes Complete Blood Count Auto Di ff Reviewed date:07/01/2023 08:43:36 AM Interpretation: Performing Lab:[facility], [address] [place] [phone] Notes/Report: White Blood Count 7.0 4.8-10.8 X10*3/uL [...] NRBC Abs Auto 0.000 0.0-0.012 X10*3/uL Comprehensive Alpine. Panel Fa st Reviewed date:07/01/2023 08:43:36 AM Interpretation: Performing Lab:[facility], [address] [place] [phone] Notes/Report: Sodium 145 135-145 mmol/L Potassium 3.3 3.3-5.1 mmol/L Chloride 104 96-108 mmol/L Carbon Dioxide 30 22-29 mmol/L Anion Gap 14 12-20 Blood Urea Nitrogen 25 9-16 mg/dL Creatinine 1.20 0.5-1.4 mg/dL Estimated Glomerular Filt Rate 58 NOTE: For -Congolese individuals, multiply the result by 1.210. Chronic [...] Panel Reviewed date:07/01/2023 08:43:36 AM Interpretation: Performing Lab:[facility], [address] [place] [phone] Notes/Report: Triglycerides 82 <150 mg/dL Desirable Triglyceride: [...] Antigen Reviewed date:07/01/2023 08:43:36 AM Interpretation: Performing Lab:[facility], [address] [place] [phone] Notes/Report: Prostate Specific Antigen 0.11 <0.05-4.0 ng/mL PSA methodology: Isaac Alinity i Chemiluminescent Microparticle Immunoassay (CMIA) [place]/Lambda Lt Ch,Free w ra t Reviewed date:07/06/2023 11:22:43 AM Interpretation: Performing Lab:[facility], [address] [place] [phone] Notes/Report: [place] Light Chain, Free Serum 81.7 3.3-19.4 mg/L Lambda Light Chain, Free Serum 38.9 5.7-26.3 mg/L [place]/Lambda Lt Ch Free Ratio 2.10 0.26-1.65 Free [...] these disorders. THIS TEST WAS PERFORMED AT: [facility] [address] [place] [phone] MAYRA CONNOLLY MD [place]/Lambda Light Chain Ser Reviewed date:07/06/2023 11:22:50 AM Interpretation: Performing Lab:[facility], [address] [place] [phone] Notes/Report: [place], Serum 330 176-443 mg/dL Lambda, Serum 194 91-240 mg/dL [place]/Lambda Ratio, Serum 1.70 1.29-2.55 This assay provides [...] and amyloidosis. THIS TEST WAS PERFORMED AT: [employer] [address] [place] [address] MONTANA COLLINS MD,PHD,RED Protein Electrophoresis, [facility] Reviewed date:07/03/2023 04:14:26 AM Interpretation: Performing Lab:[facility], [address] [place] [phone] Notes/Report: Prot Elec - Total Protein 6.5 [...] be considered. THIS TEST WAS PERFORMED AT: [facility] [address] [phone] MAYRA CONNOLLY MD Complete Blood Count Auto Di ff Reviewed date:11/02/2023 11:07:48 AM Interpretation: Performing Lab:[facility], [address] [place] [phone] Notes/Report: White Blood Count 6.5 4.8-10.8 X10*3/uL [...] NRBC Abs Auto 0.000 0.0-0.012 X10*3/uL Comprehensive [place]pine. Panel Fa st Reviewed date:11/02/2023 11:07:48 AM Interpretation: Performing Lab:[facility], [address] [place] [phone] Notes/Report: Sodium 141 135-145 mmol/L Potassium 4.1 3.3-5.1 mmol/L Chloride 101 96-108 mmol/L Carbon Dioxide 31 22-29 mmol/L Anion Gap 13 12-20 Blood Urea Nitrogen 49 9-16 mg/dL Creatinine 1.35 0.5-1.4 mg/dL Estimated Glomerular Filt Rate 50 NOTE: For -Congolese individuals, multiply the result by 1.210. Chronic [...] Panel Reviewed date:11/02/2023 11:07:48 AM Interpretation: Performing Lab:[facility], [address] [place] [phone] Notes/Report: Triglycerides 76 <150 mg/dL Desirable Triglyceride: [...] Antigen Reviewed date:11/02/2023 11:07:48 AM Interpretation: Performing Lab:[address] [phone] Notes/Report: Prostate Specific Antigen < 0.10 <0.05-4.0 ng/mL PSA methodology: Isaac Alinity i Chemiluminescent Microparticle Immunoassay (CMIA) [place]/Lambda Lt Ch,Free w ra t Reviewed date:01/27/2024 09:04:55 AM Interpretation: Performing Lab:[facility], [address] [place] [phone] Notes/Report: [place] Light Chain, Free Serum 116.2 3.3-19.4 mg/L Lambda Light Chain, Free Serum 40.2 5.7-26.3 mg/L [place]/Lambda Lt Ch Free Ratio 2.89 0.26-1.65 Free [...] these disorders. THIS TEST WAS PERFORMED AT: [facility] [address] [place] [phone] MAYRA CONNOLLY MD [place]/Lambda Light Chain Ser um Reviewed date:01/27/2024 09:04:55 AM Interpretation: Performing Lab:[facility], [address] [place] [phone] Notes/Report: [place], Serum 439 176-443 mg/dL Lambda, Serum 236 91-240 mg/dL [place]/Lambda Ratio, Serum 1.86 1.29-2.55 This assay provides [...] and amyloidosis. THIS TEST WAS PERFORMED AT: [employer] [address] [place] [address] MONTANA COLLINS MD,PHD,RED Protein Electrophoresis, Ser um Reviewed date:11/06/2023 11:23:04 AM Interpretation: Performing Lab:[facility], [address] [place] [phone] Notes/Report: Prot Elec - Total Protein 7.3 [...] be considered. THIS TEST WAS PERFORMED AT: [facility] [address] [place] [phone] MAYRA CONNOLLY MD Immunofixation Pnl, Serum Reviewed date:11/06/2023 11:23:04 AM Interpretation: Performing Lab:[facility], [address] [place] [phone] Notes/Report: IgG 2023 600-1540 mg/dL IgA 196 70-320 mg/dL IgM 109 50-300 mg/dL THIS TEST WAS PERFORMED AT: [facility] [address] [place] [phone] MAYRA CONNOLLY MD Immunofixation Interpretation SEE NOTE IgG lambda monoclona l band present. Prostate Specific Antigen Reviewed date:02/27/2024 06:40:50 AM Interpretation: Performing Lab:[address] [phone] Notes/Report: Prostate Specific Antigen < 0.10 <0.05-4.0 ng/mL PSA methodology: [employer] i Chemiluminescent Microparticle Immunoassay (CMIA) Reason For [...] Problem Status W/U Status Risk Notes Problem 9765991 Former smoker (Z87.891) Active confirmed He has a plan to prevent relapse and times of stress or illness. Problem Obesity (962184811) Obesity (E66.9) Active confirmed Problem Malignant tumor of prostate (100887827) Malignant neoplasm of prostate (C61) Active confirmed His P and 6 and a is stable and not rising. There was no sign of prostate cancer or urothelial carcinoma on today's examination. Problem Malignant tumor of urinary bladder (653919305) Malignant neoplasm of bladder, unspecified (C67.9) Active confirmed There was no sign at this time of metastatic or recurrent bbladder cancer. 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 The kappa lambda ratio is 37.6. His total protein is 7.1. He is stable at this time. Problem Obesity (112565945) Other obesity (E66.8) Active confirmed His body mass index is 36. Both legs are edematous. We discussed the elements of a sodium restricted, weight loss diet. Problem Obesity (652403184) Obesity, unspecified (E66.9) Active confirmed He has gained 17 pounds almost all of which is fluid retention. His diuretic was increased by cardiology recently. Problem Other male erectile dysfunction (N52.8) Active confirmed Thiss issue has been addressed with medication. Problem Benign prostatic hypertrophy without outflow obstruction (514170871) Benign prostatic hyperplasia without lower urinary tract symptoms (N40.0) Active confirmed He has been rising from sleep twice a night. This is partly due to his diuretic. We discussed lifestyle modification as a way of reducing nocturnal urination. He is switching his urology care to [facility]. Records will be forwarded. Vital Signs Heart Rate 69 /min 03/04/2024 Temperature 98.6 degrees Fahrenheit 03/04/2024 Blood pressure diastolic 70 mm Hg 03/04/2024 Height 63 in 03/04/2024 Blood pressure systolic 111 mm Hg 03/04/2024 Weight 206 lbs 03/04/2024 BMI 36.49 kg/m2 03/04/2024 Encounters Encounter Location Date Provider Diagnosis Chago Peres III, MD [address] [place] [address] [place] [address] 07/06/2023 Chago Peres Benign prostatic hyperplasia without lower urinary tract symptoms N40.0 ; Other male erectile dysfunction N52.8 ; Other obesity E66.8 ; Monoclonal gammopathy D47.2 ; Malignant neoplasm of bladder, unspecified C67.9 and Malignant neoplasm of prostate C61 Chago Peres III, MD [address] [place] [address] [place] [address] 11/06/2023 Chago Peres Benign prostatic hyperplasia without lower urinary tract symptoms N40.0 ; Monoclonal gammopathy D47.2 ; Malignant neoplasm of prostate C61 ; Malignant neoplasm of bladder, unspecified C67.9 ; Other male erectile dysfunction N52.8 ; Former smoker Z87.891 ; Obesity 278.00 and Peripheral edema R60.9 Chago Peres III, MD [address] [place] [address] [place] [address] 03/04/2024 Chago Peres Benign prostatic hyperplasia without [...] He is switching his urology care to [facility]. Records will be forwarded. 11/06/2023 Monoclonal gammopathy [...] He is switching his urology care to [facility]. Records will be forwarded. 03/04/2024 Monoclonal gammopathy [...] He is switching his urology care to [facility]. Records will be forwarded. 07/06/2023 Other obesity [...] Details Provider Name:Chago Peres, 07/04/2024 11:00:00 AM, [address] [place] [address] DR, [facility] [address], [place], [address], Insurance Providers Payer Name Payer Address Payer Phone Subscriber Number Group Number Insured Name Patient Relationship to Insured Coverage Start Date Coverage End Date MEDICARE NGS [address] [place] [phone] [id number] Jung Funes Self - patient is the insured [address] [place] [address] [id number] Jung Funes Self - patient is the insured Medical (General) History Medical History History ICD Code benign prostatic hyperplasia (BPH) erectile dysfunction MGUS bladder cancer prostate cancer Surgical History Surgery Date(Month/Year) Vericose veins removal 02/2019
--- OUTSIDE RECORDS SUMMARY | 2024-05-29 09:15 | XMS_ITS ---
Author Organization Chago Peres III, MD Address [address] [place] [address] Care Team Providers Care Chart Clerk Name Role Phone HAZEL DAVIS MD Primary Care Provider Chago De La Cruz [facility] [phone] Allergies Allergen (clinical drug ingredient) Drug/Non Drug [...] Date Provider Diagnosis Chago Peres III, MD [address] [place] [address] [place] [address] 07/06/2023 Chago Peres Benign prostatic hyperplasia without [...] is switching his urology care to [facility]. Records will be forwarded. 07/06/2023 Other [...] OV Provider Name:Chago Peres, 07/04/2024 11:00:00 AM, [address] [place] [address] DR [facility] [place], [place], [address], Progress Notes * Jung FUNES CDOB:[birth year] (83 yo M)Acc No.[id number]:07/06/2023 Progress Notes Patient:?Jung Funes Provider:?Chago Peres MD :1940???Age:83 Y???Sex:Male Gagan e:07/06/2023 Address:[address] [place] [address], [id number] Pcp:HAZEL DAVIS MD Subjective: * Chief Complaints: [...] past??No ? He wwas recently in the [facility] for 33 days for cardiovascular issues. [...] mg/dL) 9.2 (Ref Range: 8.4-10.2 mg/dL) * Lab:[facility]/Lambda Lt Ch,Free w rat * Order Date 06/28/2023 11/08/2022 08/11/2022 [facility] Light Chain, Free Serum 81.7?A (Ref Range: 3.3-19.4 mg/L) 54.6?A (Ref Range: 3.3-19.4 mg/L) 58.4?A (Ref Range: 3.3-19.4 mg/L) Lambda Light Chain, Free Serum 38.9?A (Ref Range: 5.7-26.3 mg/L) 27.9?A (Ref Range: 5.7-26.3 mg/L) 31.8?A (Ref Range: 5.7-26.3 mg/L) [place]/Lambda Lt Ch Free Ratio 2.10?A (Ref Range: 0.26-1.65) 1.96?A (Ref Range: 0.26-1.65) 1.84?A (Ref Range: 0.26-1.65) * Lab:[facility]/Lambda Light Chain Serum * Order Date 06/28/2023 11/08/2022 08/11/2022 [facility], Serum 330 (Ref Range: 176-443 mg/dL) 276 (Ref Range: 176-443 mg/dL) 301 (Ref Range: 176-443 mg/dL) Lambda, Serum 194 (Ref Range: 91-240 mg/dL) 203 (Ref Range: 91-240 mg/dL) 218 (Ref Range: 91-240 mg/dL) [place]/Lambda Ratio, Serum 1.70 (Ref Range: 1.29-2.55) 1.36 [...] is switching his urology care to [facility]. Records will be forwarded.?2.?Other male erectile [...] Peres MD Date:?06/12 Generated for Printi ng/Tato/eTransmitting on:?05/29/2024 09:14 AM EST History and Physical Notes * HPI (History of Present Illness) Category Sub-Category Detail Notes COVID-19 Screening Questions Have you had any new onset fever, chills, cough, congestion, sore throat, shortness of breath, muscle aches?: No Have you been exposed to the virus withi n the last 10 days?: No Have you travelled internationally in [facility] last 10 days?: No Have [...]
--- NOTE | 2024-05-29 09:36 | PC.NURSE ---
labs being drawn and type and screen
[2024-05-29 09:54] LABS: INTERNATIONAL NORM RATIO 1.2 (0.9-1.1); Prothrombin Time 14.4 SEC (10.9-12.4)
[2024-05-29 09:56] LABS: Partial Thromboplastin Time 34.6 SEC (26.0-36.8)
--- NOTE | 2024-05-29 10:30 | MHC.SHP ---
Pre-Procedural Eval Section A - 24 Hr Update-Section A only Date of Service: 05/29/24 Section B - Complete if H&P > 30 days Chief Complaint: CKD,STAGE 3B,STAGE 3 ACUTE KIDNEY IINJURY RT Details of Present Illness: 83 y/o man with worsening renal function, MGUS, and + p-anca. Nephrology requests a renal biopsy. Relevant Family History (Specify if Yes): No Relevant Social History: None Present Medications: see Short Stay Collaborative assessment Medical History: Significant History History of Previous Operations: No relevant previous surgery Allergies: Allergies Allergy/AdvReac Type Severity Reaction Status Date / Time No Known Allergies Allergy Verified 05/22/24 14:17 Review of Systems Sugical H&P ROS: Negative: Constitution, Cardiovascular, Respiratory and Gastrointestinal Exam Surgical H&P Exam: Normal: Heart, Normal: Lungs, Normal: Abdomen (soft, nt), Normal: Skin and Normal: Neurological Plan 83 y/o man with worsening renal function, MGUS, and + p-anca. - Non-targeted renal biopsy. Time Spent With Patient Time: Total time managing care of this patient today ____ minutes.
[2024-05-29] MEDS: fentaNYL citrate/PF 100 MCG/2 ML VIAL 50 MCG IVPUSH (10:48)
[2024-05-29] MEDS: Midazolam HCl/PF 2 MG/2 ML VIAL 1 MG IVPUSH (10:49)
[2024-05-29] MEDS: HYDROmorphone HCl 0.5 MG/0.5 ML SYRINGE IVPUSH ×6 (12:25→23:55)
[2024-05-29] MEDS: Acetaminophen 1,000 MG/100 ML PIGGYBACK 400 MG IV (12:49)
--- NOTE | 2024-05-29 13:10 | P.HPHOSP_ITS ---
History of Present Illness Date of Service: 05/29/24 Attending physician on admission: Regis Hernandez Chief Complaint: Subcapsular renal hematoma Pt is am 83-year-old male with a PMH significant for?paroxysmal AFib on Eliquis, HFpEF, pacemaker in place, tricuspid regurgitation HTN, HLD, prostate cancer, bladder cancer, hx of bladder outlet obstruction, CKD3, and SHALONDA who initially presented to [facility] for kidney biopsy in the setting of monoclonal gammopathy and positive p-ANCA. Procedure was complicated by subscapular hematoma which was noted on CT of abdomen after patient awoke complaining of constant left-sided back pain. Patient has received Dilaudid 0.5 mg x 2 doses with little relief. Patient states pain continues to be constant, 10/10, nonradiating, and located in left lower back at site of biopsy. Patient otherwise denies any acute medical complaints. No shortness a breath or difficulty breathing. Denies chest pain/pressure, palpitations. No fever, chills, nausea, vomiting, abdominal pain. BP has been slightly soft as low as 93/49, but currently stable at 101/51. Review of Systems Review of Systems: Negative except for that which is stated in the [facility] Medical History Fatty liver Chronic kidney disease, stage 3 Persistent atrial fibrillation Bilateral lower extremity edema SHALONDA (obstructive sleep apnea) Cardiomyopathy Pulmonary hypertension Pacemaker Nonrheumatic tricuspid (valve) insufficiency Chronic right heart failure Current use of anticoagulant therapy Anticoagulated on Coumadin Right rib fracture CHF (congestive heart failure) Nocturnal hypoxemia Peripheral edema Annual physical exam Left tennis elbow Essential hypertension PAF (paroxysmal atrial fibrillation) History of hydrocele Nocturia Bladder outlet obstruction Bladder cancer Prostate cancer Hyperlipidemia HTN (hypertension) Normally functioning cardiac pacemaker present Varicose veins of bilateral lower extremities with other complications Family History Father Cancer Prostate cancer Mother Cancer, Onset Age: 85 Son No problems noted. Daughter No problems noted. Maternal Grandfather No problems noted. Maternal Grandmother No problems noted. Paternal Grandfather No problems noted. Paternal Grandmother No problems noted. Surgical History History of hydrocelectomy Hx of varicose vein stripping Hx of subdural hematoma History of phacoemulsification of cataract of both eyes with intraocular lens implantation Hx of cardiac pacemaker Hx of colonoscopy Hx of parathyroidectomy Hx of cystoscopy Social History Household Members: Spouse Housing: House Are you a primary after school caregiver to a significant other at home: No Do you presently have visiting nurse or other home services: No Alcohol intake: current Alcohol intake frequency: holidays/special occasions only Alcohol type: wine Patient Tobacco Use Status: Never used Tobacco e-Cigarette/Vaping Use: Never Used Use of substances other than those prescribed or required for medical reasons: No Are you DNR?: No Advance Directives: Yes Advance Directives Information Provided: Yes Advance Directives on File: Yes Advance Directives Date on File: 05/02/21 service: No Current occupational status: retired Cognitive needs: No Hearing needs: No Vision needs: Yes Meds Allergies Allergy/AdvReac Type Severity Reaction Status Date / Time No Known Allergies Allergy Verified 05/22/24 14:17 Active Medications: Current Medications Acetaminophen (Acetaminophen 325 Mg Tablet) 650 mg PO Q6H PRN PRN Reason: Pain, Mild (Pain Scale 1-3), fever or headache Calcium Carbonate (Calcium Carbonate 750 Mg Tab.Chew) 750 mg PO Q4H PRN PRN Reason: Heartburn Magnesium Hydroxide (Milk Of Magnesia 30 Ml Oral.Susp) 30 ml PO DAILY PRN PRN Reason: Constipation Melatonin (Melatonin 3 Mg Tablet) 6 mg PO BEDTIME PRN PRN Reason: Insomnia Sodium Chloride (0.9 % Sodium Chloride Flush 3 Ml Syringe) [address] [facility] Medications ?Medication ?Instructions ?Recorded ?Confirmed ?Last Taken ?Type multivitamin 1 tab PO DAILY 05/12/21 05/22/24 Unknown History calcium 600 mg (as 1 tab PO DAILY 05/17/23 05/22/24 Unknown History carbonate)-vitamin D3 5 mcg (200 unit) tablet cholecalciferol (vitamin D3) 25 25 mcg PO DAILY 05/17/23 05/22/24 Unknown History mcg (1,000 unit) tablet ferrous sulfate 325 mg (65 mg 325 mg PO DAILY 07/11/23 05/22/24 Unknown History iron) tablet amiodarone 200 mg tablet 200 mg PO DAILY atrial fibrillation 04/01/24 05/22/24 Unknown History metolazone 2.5 mg tablet 2.5 mg PO MO 04/20/24 05/22/24 Unknown History Physical Exam Vital Signs and Narrative: Vital Signs: Last Vital Signs Temp 97.9 F 05/29/24 11:30 Pulse 74 05/29/24 12:50 Resp 22 H 05/29/24 12:50 BP 99/47 L 05/29/24 12:50 Pulse Ox 94 05/29/24 12:50 O2 Del Method Room Air 05/29/24 12:50 O2 Flow Rate 2 05/29/24 11:14 BMI result Body Mass Index 34.2 General: AOx3, no acute distress Resp: CTA bilaterally CVS: S1, S2, RRR GI: +BS, no distention, LLQ referred pain to left lower back Back: left lower tenderness Skin: Warm, dry Neuro: Cranial nerves II-XII grossly intact bilaterally. Motor grossly intact bilaterally Extremities: Chronic 3+ pitting edema Psych: Appropriate affect Results Labs Labs: Laboratory Results - last 24 hr 05/29/24 09:38 PT 14.4 H D INR 1.2 H APTT 34.6 Blood Type O Positive Antibody Screen NEGATIVE Assessment and Plan (1) Renal hematoma: Status: Acute Plan Pt is am 83-year-old male with a PMH significant for?paroxysmal AFib on Eliquis, HFpEF, pacemaker in place, tricuspid regurgitation HTN, HLD, prostate cancer, bladder cancer, hx of bladder outlet obstruction, CKD3, and SHALONDA who initially presented to [facility] for kidney biopsy in the setting of monoclonal gammopathy and positive p-ANCA. Procedure was complicated by subscapular hematoma which was noted on CT of abdomen after patient awoke complaining of constant left-sided back pain. Renal hematoma Complication of renal biopsy Hold Eliquis Analgesics for pain management Monitor CBC IR consult Paroxysmal AFib Hold Eliquis due to renal hematoma HFpEF/chronic edema Continue diuretics HTN BP slightly soft, hold antihypertensives for now BPH Hold tamsulosin for now due to soft BP Full Code Attending:?Dr. Hernandez DVT Prophylaxis: Pneumatic compression Patient will be admitted to the hospital under observation for close monitoring of CBC and analgesics for pain management due to renal hematoma secondary to renal biopsy. Quality Stroke Does the patient have a stroke diagnosis?: No VTE Prior VTE?: No VTE Risk Level:: Medical - moderate - high VTE Device Contraindication: N/A - Device Ordered VTE Drug Contraindication: Treatment Not Tolerated
--- NOTE | 2024-05-29 13:16 | PM.EVENT ---
Event Note Date of Service: 05/29/24 Event Note: Patient seen 1 hour after left renal biopsy. Patient reports he developed sudden onset of left back pain, 5/10. He reports of nausea. His SBP has been consistent 90s'-100s, unchanged since pre-procedure. He was given IV Dilaudid and IV acetaminophen, with minimal improvement in his pain. A CT was performed, which demonstrated a small subcapsular hematoma. Case discussed with Dr. Soni, given the small size of the subcapsular hematoma and his renal function, there is not urgent need for an angiogram at this time. Will request an observation admission for pain control and serial HCTs. I updated the patient's spouse Shira on these events. Time Spent With Patient Time: Total time managing care of this patient today ____ minutes.
--- NOTE | 2024-05-29 14:14 | PHA.MEDREC ---
Addendum entered by Vik Esquivel [facility] 05/29/24 14:24: MED REC CHECKED BY [facility] Original Note: Pharmacy Consult ? Medication Reconciliation Pharmacy has completed the medication reconciliation. Spoke to patient to confirm med list. knew all of patients medication. states patients Eliquis 2.5 mg was put on hold until after procedure. last took Sunday05/25/24, patient takes a Fiber capsule BID.
[2024-05-29] MEDS: ondansetron HCL 4 MG/2 ML VIAL IVPUSH (14:26)
[2024-05-29 15:44] LABS: Hemoglobin 11.5 g/dl (14.0-18.0)
[2024-05-29] MEDS: 0.9 % Sodium Chloride Flush 3 ML SYRINGE IVFLUSH (16:00)
[2024-05-29] MEDS: Acetaminophen 325 MG TABLET 650 MG PO (18:20)
[2024-05-29] MEDS: Furosemide 40 MG TABLET 80 MG PO (20:46)
[2024-05-29] MEDS: Tamsulosin HCL 0.4 MG CAPSULE PO (20:49)
[2024-05-29] MEDS: Melatonin 3 MG TABLET 6 MG PO (20:49)
[2024-05-29] MEDS: Potassium Chloride ER 20 MEQ TAB.ER.PRT 40 MEQ PO (20:50)
[2024-05-29] MEDS: Docusate Sodium 100 MG CAPSULE PO (20:50)
[2024-05-29 22:25] LABS: Hematocrit 37.1 % (42.0-52.0); Hemoglobin 12.1 g/dl (14.0-18.0)
[2024-05-30] VITALS (8 sets, daily range): BP systolic 100–130; BP diastolic 57–64; PULSE 69–73; RESP 12–20; TEMP 36.1–36.7; O2SAT 90–94
[2024-05-30] MEDS: 0.9 % Sodium Chloride Flush 3 ML SYRINGE IVFLUSH ×3 (00:45→12:45)
[2024-05-30] MEDS: Acetaminophen 325 MG TABLET 650 MG PO ×3 (01:59→12:44)
[2024-05-30] MEDS: HYDROmorphone HCl 0.5 MG/0.5 ML SYRINGE IVPUSH ×2 (02:56→06:00)
[2024-05-30 06:16] LABS: Hematocrit 37.2 % (42.0-52.0); Mean Corpuscular HGB Conc 32.3 g/dl (31.0-36.0); Mean Corpuscular Hemoglobin 30.9 pg (27.0-33.0); Mean Corpuscular Volume 95.9 fL (80.0-98.0); Mean Platelet Volume 10.1 fL (9.4-12.4); Platelet Count 164 X10*3/uL (160-400); Red Blood Count 3.88 X10*6/uL (4.60-5.80); Red Cell Distribution Width 16.3 % (11.0-16.0); White Blood Count 9.4 X10*3/uL (4.8-10.8)
[2024-05-30 06:36] LABS: Anion Gap 20 (12-20); Blood Urea Nitrogen 63 mg/dL (9-16); Calcium 9.4 mg/dL (8.4-10.2); Carbon Dioxide 30 mmol/L (22-29); Chloride 95 mmol/L (96-108); Creatinine Clr Calc Pharmacy 19.7; Estimated Glomerular Filt Rate 22; Glucose Random 129 mg/dL (60-115); Sodium 141 mmol/L (135-145)
[2024-05-30] MEDS: polyethylene glycoL 3350 17 GM POWD.PACK PO (07:58)
[2024-05-30] MEDS: Docusate Sodium 100 MG CAPSULE PO ×2 (07:58→20:48)
[2024-05-30] MEDS: Amiodarone HCL 200 MG TABLET PO (07:58)
[2024-05-30] MEDS: Cholecalciferol (Vitamin D3) 25 MCG TABLET PO (07:58)
[2024-05-30] MEDS: Furosemide 40 MG TABLET 80 MG PO (07:58)
[2024-05-30] MEDS: Potassium Chloride ER 20 MEQ TAB.ER.PRT 40 MEQ PO ×2 (07:59→20:48)
[2024-05-30] MEDS: Multivitamin TABLET 1 TAB PO (07:59)
[2024-05-30] MEDS: Ferrous Sulfate 324 MG TABLET.DR PO (07:59)
[2024-05-30] MEDS: hydrOXYzine HCL 25 MG TABLET PO (08:08)
--- NOTE | 2024-05-30 08:46 | HO.PM.IMPN ---
Subjective Subjective Date of Service: 05/30/24 Interval History: severe pain Physical Exam Vital Signs: Vital Signs: Last Vital Signs Temp 96.9 F 05/30/24 07:54 Pulse 71 05/30/24 07:54 Resp 20 05/30/24 07:54 BP 119/64 05/30/24 07:54 Pulse Ox 94 05/30/24 07:54 O2 Del Method Room Air 05/30/24 07:54 O2 Flow Rate 2 05/29/24 19:21 BMI result Body Mass Index 34.2 in pain tremulous, alert oriented times 3, lungs clear Objective Data Active Medications Acetaminophen (Acetaminophen 325 Mg Tablet) 650 mg PO Q6H [facility] Stop: 05/30/24 18:59 Last Admin: 05/30/24 06:01 Dose: 650 mg Documented By: SHENA Amiodarone HCl (Amiodarone Hcl 200 Mg Tablet) 200 mg PO DAILY [facility] Last Admin: 05/30/24 07:58 Dose: 200 mg Documented By: JANET Calcium Carbonate (Calcium Carbonate 750 Mg Tab.Chew) 750 mg PO Q4H PRN PRN Reason: Heartburn Docusate Sodium (Docusate Sodium 100 Mg Capsule) 100 mg PO BID [facility] Last Admin: 05/30/24 07:58 Dose: 100 mg Documented By: JANET Ferrous Sulfate (Ferrous Sulfate 324 Mg Tablet.Dr) 324 mg PO DAILY [facility] Last Admin: 05/30/24 07:59 Dose: 324 mg Documented By: JANET Furosemide (Furosemide 40 Mg Tablet) 80 mg PO BID [facility]; Protocol Last Admin: 05/30/24 07:58 Dose: 80 mg Documented By: JANET Lorazepam (Lorazepam 1 Mg Tablet) 1 mg PO Q4H PRN PRN Reason: Anxiety Magnesium Hydroxide (Milk Of Magnesia 30 Ml Oral.Susp) 30 ml PO DAILY PRN PRN Reason: Constipation Melatonin (Melatonin 3 Mg Tablet) 6 mg PO BEDTIME PRN PRN Reason: Insomnia Last Admin: 05/29/24 20:49 Dose: 6 mg Documented By: SHENA Metolazone (Metolazone 2.5 Mg Tablet) 2.5 mg PO MO [facility] Multivitamins/Vitamin C (Multivitamin Tablet) 1 tab PO DAILY [facility] Last Admin: 05/30/24 07:59 Dose: 1 tab Documented By: JANET Ondansetron HCl (Ondansetron Hcl 4 Mg/2 Ml Vial) 4 mg IVPUSH Q8H PRN PRN Reason: Nausea and Vomiting Last Admin: 05/29/24 14:26 Dose: 4 mg Documented By: KALIA Oxycodone HCl (Oxycodone Hcl Immed Release 5 Mg Tablet) 5 mg PO Q6H PRN PRN Reason: Pain, Severe (Pain Scale 7-10) Polyethylene Glycol (Polyethylene Glycol 3350 17 Gm Powd.Pack) 17 gm PO DAILY [facility] Last Admin: 05/30/24 07:58 Dose: 17 gm Documented By: JANET Potassium Chloride (Potassium Chloride Er 20 Meq Tab.Er.Prt) 40 meq PO BID [facility] Last Admin: 05/30/24 07:59 Dose: 40 meq Documented By: JANET Sodium Chloride (0.9 % Sodium Chloride Flush 3 Ml Syringe) 3 ml IVFLUSH QSHIFT [facility] Last Admin: 05/30/24 07:59 Dose: 3 ml Documented By: JANET Tamsulosin HCl (Tamsulosin Hcl 0.4 Mg Capsule) 0.4 mg PO BEDTIME [facility] Last Admin: 05/29/24 20:49 Dose: 0.4 mg Documented By: SHENA Vitamin D (Cholecalciferol (Vitamin D3) 25 Mcg Tablet) 25 mcg PO DAILY [facility] Last Admin: 05/30/24 07:58 Dose: 25 mcg Documented By: JANET Labs 05/30/24 05:33 05/30/24 05:32 Labs: Laboratory Results - last 24 hr 05/29/24 05/30/24 05/30/24 09:38 05:32 05:33 MCV 95.9 MCH 30.9 MCHC 32.3 RDW 16.3 H Plt Count 164 MPV 10.1 Absolute Nucleated RBC 0.000 Nucleated RBC % (auto) 0.0 Hold Purple Top SEE NOTE PT 14.4 H D INR 1.2 H APTT 34.6 Anion Gap 20 Estim Creat Clear Calc 19.7 Estimated GFR 22 Random Glucose 129 H Calcium 9.4 D Blood Type O Positive Antibody Screen NEGATIVE Assessment and Plan (1) Renal hematoma: Status: Acute Plan 83M PMH CKD III, pafib, hfpef, pacer, htn, hld, prosate ca, bladder ca, kendall, mgus with positive panca, presented for kidney biopsy, admitted for observation due to subacpsular hematoma renal hematoma s/p biopsy pain control - addisitonal anxiety component, changed to po oxycodone, added ativan, atarax hgb stable follow up IR ? when to restart eliquis jil on CKD III hold lasix, gentle hydration, nephro eval pafib holding eliquis due to hematoma amiodarone hfpef holding diuretics for jil dvt prophylaxi s- mechanical due to hematoma full code reason for continued hospitalization:jil, pain control Quality Stroke Does the patient have a stroke diagnosis?: No VTE Prior VTE?: No VTE Risk Level:: Medical - moderate - high VTE Device Contraindication: N/A - Device Ordered VTE Drug Contraindication: Treatment Not Tolerated
--- NOTE | 2024-05-30 09:16 | MHC.CM.PN ---
Addendum entered by Gabby Nash 05/30/24 09:22: IMM DELIVERED Original Note: DASH DELIVERED PT LIVES WITH . PT STATES HE HAS A WALKER AND IS ACTIVE WITH [facility]. +HCP ON FILE AND PCP DR. DAVIS AT [facility]. DP: HOME WITH RESUMPTION OF [facility] SERVICES IS THE GOAL. RETURN REFERRAL SENT TO [facility]. PT'S FAMILY WILL TRANSPORT. CM WILL CONTINUE TO FOLLOW FOR ANY CHANGE TO DC PLAN/NEEDS.
[2024-05-30] MEDS: 0.9 % Sodium Chloride 1,000 ML 75 ML IVCONT ×2 (09:47→23:54)
--- NOTE | 2024-05-30 10:17 | P.EN_ITS ---
Event Note Date of Service: 05/30/24 Event Note: Interventional Radiology Progress Note S: Reports of 10 right back pain. O: 97/ 71/ 119/64 / 20/ 94% Gen: NAD Skin: warm and dry, dressing clean Back: ttp HCT- 35/37/37 A/P 83 y/o man with CKD and worsening renal function, MGUS, + p-anca s/p non- targeted left renal biopsy. Patient was admitted post procedure due to pain from a small subcapsular hematoma -HCT stable and unchanged from pre-procedure. Pain also may be due to the gelfoam given post procedure. -Ok to resume Eliquis tonight -Cr is worse today, ? dehydration -Pain control. It was explained to the patient that pain/discomfort will take a while to fully resolve. -D/w Dr. Zachariah Moore PA Interventional Radiology Time Spent With Patient Time: Total time managing care of this patient today ____ minutes.
--- NOTE | 2024-05-30 10:45 | PM.CNNEP ---
History of Present Illness Reason for Consult Consult date: 05/30/24 Chief Complaint Chief complaint: subscapular hematoma Review of Systems Constitutional: Reports fatigue Cardiovascular: Denies chest pain, Denies leg edema, Denies lightheadedness and Denies dyspnea Respiratory: Denies cough and Denies dyspnea Gastrointestinal: Denies abdominal pain, Denies constipation, Denies diarrhea and Denies vomiting Genitourinary: Denies oliguria and Denies dysuria Musculoskeletal: Denies arthralgias and Denies joint swelling Skin/Breast: Denies rash Endocrine: Reports fatigue [facility] Past Medical History Medical History (Updated 05/30/24 @ 11:20 by Carey Arevalo, DNP, PROGRAM LEAD-) Chronic kidney disease, stage 3 Fatty liver Persistent atrial fibrillation Bilateral lower extremity edema SHALONDA (obstructive sleep apnea) Cardiomyopathy Pulmonary hypertension Pacemaker Nonrheumatic tricuspid (valve) insufficiency Chronic right heart failure Current use of anticoagulant therapy Anticoagulated on Coumadin Right rib fracture CHF (congestive heart failure) Nocturnal hypoxemia Peripheral edema Annual physical exam Left tennis elbow Essential hypertension PAF (paroxysmal atrial fibrillation) History of hydrocele Nocturia Bladder outlet obstruction Bladder cancer Prostate cancer Hyperlipidemia HTN (hypertension) Normally functioning cardiac pacemaker present Varicose veins of bilateral lower extremities with other complications Family History Family History Father Cancer Prostate cancer Mother Cancer, Onset Age: 85 Son No problems noted. Daughter No problems noted. Maternal Grandfather No problems noted. Maternal Grandmother No problems noted. Paternal Grandfather No problems noted. Paternal Grandmother No problems noted. Surgical History Surgical History History of hydrocelectomy Hx of varicose vein stripping Hx of subdural hematoma History of phacoemulsification of cataract of both eyes with intraocular lens implantation Hx of cardiac pacemaker Hx of colonoscopy Hx of parathyroidectomy Hx of cystoscopy Social History Social History Household Members: Spouse Housing: House Are you a primary health careers instructor to a significant other at home: No Do you presently have visiting nurse or other home services: Yes Alcohol intake: current Alcohol intake frequency: holidays/special occasions only Alcohol type: wine Patient Tobacco Use Status: Never used Tobacco e-Cigarette/Vaping Use: Never Used Use of substances other than those prescribed or required for medical reasons: No Currently Displaying Signs/Symptoms of Drug Intoxication Withdrawal: No Have you been hit, kicked, punched, or otherwise hurt by someone within the past year? If so, by whom?: No Do you feel safe in your current relationship?: Yes Is there a partner from a previous relationship who is making you feel unsafe now?: No Are you made to feel afraid or neglected: No Cultural Healthcare Practices: yazidi Are you DNR?: No Advance Directives: Yes Advance Directives Information Provided: Yes Advance Directives on File: Yes Advance Directives Date on File: 05/02/21 Do you have a plan to hurt others: No Plan Recently lost weight without trying: No Nutrition Risks: No Nutritional Risk service: No Current occupational status: retired Cognitive needs: No Hearing needs: No Vision needs: Yes Meds Allergies Allergy/AdvReac Type Severity Reaction Status Date / Time No Known Allergies Allergy Verified 05/22/24 14:17 Active Medications: Current Medications Acetaminophen (Acetaminophen 325 Mg Tablet) 650 mg PO Q6H [facility] Stop: 05/30/24 18:59 Last Admin: 05/30/24 06:01 Dose: 650 mg Amiodarone HCl (Amiodarone Hcl 200 Mg Tablet) 200 mg PO DAILY [facility] Last Admin: 05/30/24 07:58 Dose: 200 mg Calcium Carbonate (Calcium Carbonate 750 Mg Tab.Chew) 750 mg PO Q4H PRN PRN Reason: Heartburn Docusate Sodium (Docusate Sodium 100 Mg Capsule) 100 mg PO BID [facility] Last Admin: 05/30/24 07:58 Dose: 100 mg Ferrous Sulfate (Ferrous Sulfate 324 Mg Tablet.Dr) 324 mg PO DAILY [facility] Last Admin: 05/30/24 07:59 Dose: 324 mg Sodium Chloride (Ns) 1,000 mls @ 75 mls/hr IVCONT .[id number] [facility] Last Admin: 05/30/24 09:47 Dose: 75 mls/hr Lorazepam (Lorazepam 1 Mg Tablet) 1 mg PO Q4H PRN PRN Reason: Anxiety Magnesium Hydroxide (Milk Of Magnesia 30 Ml Oral.Susp) 30 ml PO DAILY PRN PRN Reason: Constipation Melatonin (Melatonin 3 Mg Tablet) 6 mg PO BEDTIME PRN PRN Reason: Insomnia Last Admin: 05/29/24 20:49 Dose: 6 mg Metolazone (Metolazone 2.5 Mg Tablet) 2.5 mg PO MO [facility] Multivitamins/Vitamin C (Multivitamin Tablet) 1 tab PO DAILY [facility] Last Admin: 05/30/24 07:59 Dose: 1 tab Ondansetron HCl (Ondansetron Hcl 4 Mg/2 Ml Vial) 4 mg IVPUSH Q8H PRN PRN Reason: Nausea and Vomiting Last Admin: 05/29/24 14:26 Dose: 4 mg Oxycodone HCl (Oxycodone Hcl Immed Release 5 Mg Tablet) 5 mg PO Q6H PRN PRN Reason: Pain, Severe (Pain Scale 7-10) Polyethylene Glycol (Polyethylene Glycol 3350 17 Gm Powd.Pack) 17 gm PO DAILY [facility] Last Admin: 05/30/24 07:58 Dose: 17 gm Potassium Chloride (Potassium Chloride Er 20 Meq Tab.Er.Prt) 40 meq PO BID [facility] Last Admin: 05/30/24 07:59 Dose: 40 meq Sodium Chloride (0.9 % Sodium Chloride Flush 3 Ml Syringe) 3 ml IVFLUSH QSHIFT [facility] Last Admin: 05/30/24 07:59 Dose: 3 ml Tamsulosin HCl (Tamsulosin Hcl 0.4 Mg Capsule) 0.4 mg PO BEDTIME [facility] Last Admin: 05/29/24 20:49 Dose: 0.4 mg Vitamin D (Cholecalciferol (Vitamin D3) 25 Mcg Tablet) 25 mcg PO DAILY [facility] Last Admin: 05/30/24 07:58 Dose: 25 mcg Home Medications ?Medication ?Instructions ?Recorded ?Confirmed ?Last Taken ?Type multivitamin 1 tab PO DAILY 05/12/21 05/29/24 05/28/24 History calcium 600 mg (as 1 tab PO DAILY 05/17/23 05/29/24 05/28/24 History carbonate)-vitamin D3 5 mcg (200 unit) tablet cholecalciferol (vitamin D3) 25 25 mcg PO DAILY 05/17/23 05/29/24 05/28/24 History mcg (1,000 unit) tablet ferrous sulfate 325 mg (65 mg 325 mg PO DAILY 07/11/23 05/29/24 05/28/24 History iron) tablet amiodarone 200 mg tablet 200 mg PO DAILY atrial fibrillation 04/01/24 05/29/24 05/28/24 History metolazone 2.5 mg tablet 2.5 mg PO MO 04/20/24 05/29/24 05/28/24 History acetaminophen 650 mg 650 mg PO BID PRN Fever Or Pain 05/29/24 05/29/24 05/28/24 History tablet,extended release furosemide 80 mg tablet 80 mg PO BID 05/29/24 05/29/24 05/28/24 History Physical Exam Vital Signs: Last Vital Signs Temp 96.9 F 05/30/24 07:54 Pulse 71 05/30/24 07:54 Resp 20 05/30/24 07:54 BP 119/64 05/30/24 07:54 Pulse Ox 94 05/30/24 07:54 O2 Del Method Room Air 05/30/24 07:54 O2 Flow Rate 2 05/29/24 19:21 BMI result Body Mass Index 34.2 Const General: alert and awake Resp Effort & Inspection: normal respiratory effort and able to speak in complete sentences Auscultation: clear to auscultation bilaterally Cardio Rate: regular rate Rhythm: regular rhythm Heart sounds: S1 normal heart sound present and S2 normal heart sound present GI Palpation (GI): Soft to palpation and nontender Other: right mid back pain, has renal hematoma. reports pain is improving General: Yes CVA tenderness Back/Spine/Pelvis Other: right renal hematoma, pt reports pain improved since yesterday. Back: CVA tenderness Skin Rashes: no rashes Extrem General: Yes edema (trace BLE pitting edema ) Results Lab Results 05/30/24 05:33 05/30/24 05:32 Lab results: Chemistry 05/30/24 05:32 Sodium 141 Potassium 4.0 Carbon Dioxide 30 H BUN 63 H Creatinine 2.78 H Calcium 9.4 D Hematology 05/29/24 05/29/24 05/30/24 15:37 22:16 05:33 WBC 9.4 Hgb 11.5 L 12.1 L 12.0 L Plt Count 164 Assessment and Plan (1) Chronic kidney disease, stage 3: Qualifiers: Chronic kidney disease stage 3 subtype: stage 3b (GFR 30-44) Qualified Code(s): N18.32 - Chronic kidney disease, stage 3b Status: Acute (2) Renal hematoma: Qualifiers: Encounter type: subsequent encounter Laterality: right Qualified Code(s): S37.011D - Minor contusion of right kidney, subsequent encounter Status: Acute Plan JB likely tubular injury from bleeding from renal hematoma blood transfusion support as needed if H&H drops should get repeat CT scan continue IVF at 75mL/hr as ordered avoid nephrotoxins, regular blood pressure checks, daily renal function and electrolyte checks continue supportive care will continue to follow Discussed with Dr Camejo Procedures Date of Service Date of Service: 05/30/24
[2024-05-30] MEDS: oxyCODONE HCl Immed Release 5 MG TABLET PO (17:22)
[2024-05-30] MEDS: Tamsulosin HCL 0.4 MG CAPSULE PO (20:48)
[2024-05-31 02:12] VITALS: BP 106/66; PULSE 85; RESP 16; TEMP 36.4; O2SAT 95
[2024-05-31] MEDS: oxyCODONE HCl Immed Release 5 MG TABLET PO (02:16)
[2024-05-31 07:08] LABS: Anion Gap 18 (12-20); Blood Urea Nitrogen 65 mg/dL (9-16); Calcium 8.8 mg/dL (8.4-10.2); Carbon Dioxide 28 mmol/L (22-29); Chloride 95 mmol/L (96-108); Creatinine Clr Calc Pharmacy 16.7; Estimated Glomerular Filt Rate 18; Glucose Random 114 mg/dL (60-115); Potassium 5.5 mmol/L (3.3-5.1); Sodium 135 mmol/L (135-145)
[2024-05-31] MEDS: Sodium Zirconium Cyclosilicate 10 GM POWD.PACK PO (07:36)
[2024-05-31] MEDS: 0.9 % Sodium Chloride Flush 3 ML SYRINGE IVFLUSH ×2 (07:38→19:59)
[2024-05-31 08:00] VITALS: BP 95/64; PULSE 125; RESP 18; TEMP 37; O2SAT 93
--- NOTE | 2024-05-31 08:18 | ECG_ITS ---
Test Reason : MD order, tachycardia. Blood Pressure : / mmHG Vent. Rate : 124 BPM Atrial Rate : 125 BPM P-R Int : 000 ms QRS Dur : 180 ms QT Int : 426 ms P-R-T Axes : 000 261 081 degrees QTc Int : 612 ms Ventricular-paced rhythm Uncertain atrial rhythm Abnormal ECG When compared with ECG of 20-APR-2024 15:10, No significant change was found Referred By: Regis Hernandez Electronically Signed By:KELSEY PRADHAN
--- NOTE | 2024-05-31 08:26 | HO.PM.IMPN ---
Subjective Subjective Date of Service: 05/31/24 Interval History: pain improved Physical Exam Vital Signs: Vital Signs: Last Vital Signs Temp 98.6 F 05/31/24 08:00 Pulse 125 H 05/31/24 08:00 Resp 18 05/31/24 08:00 BP 95/64 05/31/24 08:00 Pulse Ox 93 05/31/24 08:00 O2 Del Method Room Air 05/31/24 08:00 O2 Flow Rate 2 05/31/24 02:12 BMI result Body Mass Index 34.2 Const: General: alert and awake Resp: Effort & Inspection: normal respiratory effort and able to speak in complete sentences Auscultation: clear to auscultation bilaterally Cardio: Rate: regular rate Rhythm: regular rhythm Heart sounds: S1 normal heart sound present and S2 normal heart sound present GI: Palpation (GI): Soft to palpation and nontender : Other: right mid back pain, has renal hematoma. reports pain is improving General: Yes CVA tenderness Back/Spine/Pelvis: Other: right renal hematoma, pt reports pain improved since yesterday. Back: CVA tenderness Skin: Rashes: no rashes Extrem: General: Yes edema (trace BLE pitting edema ) Objective Data Active Medications Amiodarone HCl (Amiodarone Hcl 200 Mg Tablet) 200 mg PO DAILY [facility] Last Admin: 05/30/24 07:58 Dose: 200 mg Documented By: JANET Calcium Carbonate (Calcium Carbonate 750 Mg Tab.Chew) 750 mg PO Q4H PRN PRN Reason: Heartburn Docusate Sodium (Docusate Sodium 100 Mg Capsule) 100 mg PO BID [facility] Last Admin: 05/30/24 20:48 Dose: 100 mg Documented By: RAHUL Ferrous Sulfate (Ferrous Sulfate 324 Mg Tablet.Dr) 324 mg PO DAILY [facility] Last Admin: 05/30/24 07:59 Dose: 324 mg Documented By: JANET Sodium Chloride (Ns) 1,000 mls @ 75 mls/hr IVCONT .[id number] [facility] Last Admin: 05/30/24 23:54 Dose: 75 mls/hr Documented By: RAHUL Lorazepam (Lorazepam 1 Mg Tablet) 1 mg PO Q4H PRN PRN Reason: Anxiety Magnesium Hydroxide (Milk Of Magnesia 30 Ml Oral.Susp) 30 ml PO DAILY PRN PRN Reason: Constipation Melatonin (Melatonin 3 Mg Tablet) 6 mg PO BEDTIME PRN PRN Reason: Insomnia Last Admin: 05/29/24 20:49 Dose: 6 mg Documented By: SHENA Metolazone (Metolazone 2.5 Mg Tablet) 2.5 mg PO MO [facility] Multivitamins/Vitamin C (Multivitamin Tablet) 1 tab PO DAILY [facility] Last Admin: 05/30/24 07:59 Dose: 1 tab Documented By: JANET Ondansetron HCl (Ondansetron Hcl 4 Mg/2 Ml Vial) 4 mg IVPUSH Q8H PRN PRN Reason: Nausea and Vomiting Last Admin: 05/29/24 14:26 Dose: 4 mg Documented By: KALIA Oxycodone HCl (Oxycodone Hcl Immed Release 5 Mg Tablet) 5 mg PO Q6H PRN PRN Reason: Pain, Severe (Pain Scale 7-10) Last Admin: 05/31/24 02:16 Dose: 5 mg Documented By: RAHUL Polyethylene Glycol (Polyethylene Glycol 3350 17 Gm Powd.Pack) 17 gm PO DAILY [facility] Last Admin: 05/30/24 07:58 Dose: 17 gm Documented By: JANET Sodium Chloride (0.9 % Sodium Chloride Flush 3 Ml Syringe) 3 ml IVFLUSH [facility] Last Admin: 05/31/24 07:38 Dose: 3 ml Documented By: ERIS Tamsulosin HCl (Tamsulosin Hcl 0.4 Mg Capsule) 0.4 mg PO BEDTIME [facility] Last Admin: 05/30/24 20:48 Dose: 0.4 mg Documented By: RAHUL Vitamin D (Cholecalciferol (Vitamin D3) 25 Mcg Tablet) 25 mcg PO DAILY [facility] Last Admin: 05/30/24 07:58 Dose: 25 mcg Documented By: JANET Labs 05/30/24 05:33 05/31/24 05:52 Labs: Laboratory Results - last 24 hr 05/31/24 05:52 Anion Gap 18 Estim Creat Clear Calc 16.7 Estimated GFR 18 Random Glucose 114 Calcium 8.8 D Assessment and Plan (1) Renal hematoma: Status: Acute Plan 83M PMH CKD III, pafib, hfpef, pacer, htn, hld, prosate ca, bladder ca, kendall, mgus with positive panca, presented for kidney biopsy, admitted for observation due to subacpsular hematoma renal hematoma s/p biopsy pain better controlled hgb stable IR appreciated, okay to restart eliquis jil on CKD III holding lasix, gentle hydration, nephro following hyperkalemia hold K supplement lokelma, monitor pafib with rvr eliquis amiodarone hfpef holding diuretics for jil dvt prophylaxis - eliquis full code reason for continued hospitalization:jil Quality Stroke Does the patient have a stroke diagnosis?: No VTE Prior VTE?: No VTE Risk Level:: Medical - moderate - high VTE Device Contraindication: N/A - Device Ordered VTE Drug Contraindication: Treatment Not Tolerated
[2024-05-31] MEDS: Multivitamin TABLET 1 TAB PO (09:23)
[2024-05-31] MEDS: Docusate Sodium 100 MG CAPSULE PO ×2 (09:23→19:53)
[2024-05-31] MEDS: Cholecalciferol (Vitamin D3) 25 MCG TABLET PO (09:23)
[2024-05-31] MEDS: polyethylene glycoL 3350 17 GM POWD.PACK PO (09:23)
[2024-05-31] MEDS: Amiodarone HCL 200 MG TABLET PO (09:23)
[2024-05-31] MEDS: Ferrous Sulfate 324 MG TABLET.DR PO (09:23)
[2024-05-31] MEDS: Apixaban 2.5 MG TABLET PO ×2 (09:23→19:54)
[2024-05-31] MEDS: 0.9 % Sodium Chloride 1,000 ML 75 ML IVCONT (11:53)
[2024-05-31 12:00] VITALS: BP 106/54; PULSE 64; RESP 18; TEMP 36.6; O2SAT 93
[2024-05-31 12:29] LABS: Hemoglobin 11.4 g/dl (14.0-18.0); Mean Corpuscular HGB Conc 31.7 g/dl (31.0-36.0); Mean Corpuscular Hemoglobin 30.8 pg (27.0-33.0); Mean Corpuscular Volume 97.3 fL (80.0-98.0); Mean Platelet Volume 10.3 fL (9.4-12.4); Platelet Count 166 X10*3/uL (160-400); Red Cell Distribution Width 16.7 % (11.0-16.0); White Blood Count 16.1 X10*3/uL (4.8-10.8)
[2024-05-31 15:52] VITALS: BP 91/51; PULSE 64; RESP 18; TEMP 36.3; O2SAT 95
[2024-05-31] MEDS: Tamsulosin HCL 0.4 MG CAPSULE PO (19:53)
[2024-05-31 20:00] VITALS: BP 114/59; PULSE 72; RESP 18; TEMP 36.6; O2SAT 95
[2024-05-31 23:46] VITALS: BP 107/61; PULSE 65; RESP 16; TEMP 37.1; O2SAT 95
[2024-06-01] MEDS: 0.9 % Sodium Chloride 1,000 ML 75 ML IVCONT (00:48)
[2024-06-01 03:43] VITALS: BP 111/61; PULSE 65; RESP 16; TEMP 37; O2SAT 96
[2024-06-01 07:33] LABS: Hematocrit 32.4 % (42.0-52.0); Hemoglobin 10.6 g/dl (14.0-18.0); Mean Corpuscular HGB Conc 32.7 g/dl (31.0-36.0); Mean Corpuscular Hemoglobin 31.1 pg (27.0-33.0); Mean Platelet Volume 10.4 fL (9.4-12.4); Platelet Count 157 X10*3/uL (160-400); Red Blood Count 3.41 X10*6/uL (4.60-5.80); Red Cell Distribution Width 16.2 % (11.0-16.0); White Blood Count 12.6 X10*3/uL (4.8-10.8)
[2024-06-01 07:46] LABS: Anion Gap 14 (12-20); Blood Urea Nitrogen 73 mg/dL (9-16); Calcium 8.3 mg/dL (8.4-10.2); Carbon Dioxide 29 mmol/L (22-29); Chloride 95 mmol/L (96-108); Creatinine Clr Calc Pharmacy 15.6; Estimated Glomerular Filt Rate 17; Glucose Random 90 mg/dL (60-115); Sodium 133 mmol/L (135-145)
[2024-06-01 08:00] VITALS: BP 98/56; PULSE 67; RESP 16; TEMP 36.9; O2SAT 96
[2024-06-01] MEDS: Apixaban 2.5 MG TABLET PO ×2 (08:33→20:32)
[2024-06-01] MEDS: Docusate Sodium 100 MG CAPSULE PO ×2 (08:33→20:32)
[2024-06-01] MEDS: Multivitamin TABLET 1 TAB PO (08:34)
[2024-06-01] MEDS: Amiodarone HCL 200 MG TABLET PO (08:34)
[2024-06-01] MEDS: polyethylene glycoL 3350 17 GM POWD.PACK PO (08:34)
[2024-06-01] MEDS: Cholecalciferol (Vitamin D3) 25 MCG TABLET PO (08:34)
[2024-06-01] MEDS: Ferrous Sulfate 324 MG TABLET.DR PO (08:34)
--- NOTE | 2024-06-01 09:01 | P.PNIM_ITS ---
Subjective Subjective Date of Service: 06/01/24 Interval History: pain improved Physical Exam 2 Vital Signs: Vital Signs: Last Vital Signs Temp 98.5 F 06/01/24 08:00 Pulse 67 06/01/24 08:00 Resp 16 06/01/24 08:00 BP 98/56 L 06/01/24 08:00 Pulse Ox 96 06/01/24 08:00 O2 Del Method Nasal Cannula 06/01/24 08:00 O2 Flow Rate 2 06/01/24 08:00 BMI result Body Mass Index 34.2 Const: General: alert and awake Resp: Effort & Inspection: normal respiratory effort and able to speak in complete sentences Auscultation: clear to auscultation bilaterally Cardio: Rate: regular rate Rhythm: regular rhythm Heart sounds: S1 normal heart sound present and S2 normal heart sound present GI: Palpation (GI): Soft to palpation and nontender : Other: right mid back pain, has renal hematoma. reports pain is improving General: Yes CVA tenderness Back/Spine/Pelvis: Other: right renal hematoma, pt reports pain improved since yesterday. Back: CVA tenderness Skin: Rashes: no rashes Extrem: General: Yes edema (trace BLE pitting edema ) Objective Data Active Medications Amiodarone HCl (Amiodarone Hcl 200 Mg Tablet) 200 mg PO DAILY [facility] Last Admin: 06/01/24 08:34 Dose: 200 mg Documented By: ERIS Apixaban (Apixaban 2.5 Mg Tablet) 2.5 mg PO BID [facility] Last Admin: 06/01/24 08:33 Dose: 2.5 mg Documented By: ERIS Calcium Carbonate (Calcium Carbonate 750 Mg Tab.Chew) 750 mg PO Q4H PRN PRN Reason: Heartburn Docusate Sodium (Docusate Sodium 100 Mg Capsule) 100 mg PO BID [facility] Last Admin: 06/01/24 08:33 Dose: 100 mg Documented By: ERIS Ferrous Sulfate (Ferrous Sulfate 324 Mg Tablet.Dr) 324 mg PO DAILY [facility] Last Admin: 06/01/24 08:34 Dose: 324 mg Documented By: ERIS Sodium Chloride (Ns) 1,000 mls @ 75 mls/hr IVCONT .[id number] [facility] Last Admin: 06/01/24 00:48 Dose: 75 mls/hr Documented By: RAHUL Lorazepam (Lorazepam 1 Mg Tablet) 1 mg PO Q4H PRN PRN Reason: Anxiety Magnesium Hydroxide (Milk Of Magnesia 30 Ml Oral.Susp) 30 ml PO DAILY PRN PRN Reason: Constipation Melatonin (Melatonin 3 Mg Tablet) 6 mg PO BEDTIME PRN PRN Reason: Insomnia Last Admin: 05/29/24 20:49 Dose: 6 mg Documented By: SHENA Metolazone (Metolazone 2.5 Mg Tablet) 2.5 mg PO MO [facility] Multivitamins/Vitamin C (Multivitamin Tablet) 1 tab PO DAILY [facility] Last Admin: 06/01/24 08:34 Dose: 1 tab Documented By: ERIS Ondansetron HCl (Ondansetron Hcl 4 Mg/2 Ml Vial) 4 mg IVPUSH Q8H PRN PRN Reason: Nausea and Vomiting Last Admin: 05/29/24 14:26 Dose: 4 mg Documented By: KALIA Oxycodone HCl (Oxycodone Hcl Immed Release 5 Mg Tablet) 5 mg PO Q6H PRN PRN Reason: Pain, Severe (Pain Scale 7-10) Last Admin: 05/31/24 02:16 Dose: 5 mg Documented By: RAHUL Polyethylene Glycol (Polyethylene Glycol 3350 17 Gm Powd.Pack) 17 gm PO DAILY [facility] Last Admin: 06/01/24 08:34 Dose: 17 gm Documented By: ERIS Sodium Chloride (0.9 % Sodium Chloride Flush 3 Ml Syringe) 3 ml IVFLUSH QSHIFT [facility] Last Admin: 06/01/24 07:32 Dose: Not Given Documented By: ERIS Non-Admin Reason: IV Running Tamsulosin HCl (Tamsulosin Hcl 0.4 Mg Capsule) 0.4 mg PO BEDTIME [facility] Last Admin: 05/31/24 19:53 Dose: 0.4 mg Documented By: RAHUL Vitamin D (Cholecalciferol (Vitamin D3) 25 Mcg Tablet) 25 mcg PO DAILY [facility] Last Admin: 06/01/24 08:34 Dose: 25 mcg Documented By: ERIS Labs 06/01/24 06:00 06/01/24 06:00 Labs: Laboratory Results - last 24 hr 05/31/24 06/01/24 05:52 06:00 MCV 97.3 95.0 MCH 30.8 31.1 MCHC 31.7 32.7 RDW 16.7 H 16.2 H Plt Count 166 157 L MPV 10.3 10.4 Absolute Nucleated RBC 0.000 0.000 Nucleated RBC % (auto) 0.0 0.0 Anion Gap 14 Estim Creat Clear Calc 15.6 Estimated GFR 17 Random Glucose 90 Calcium 8.3 L Assessment and Plan (1) Renal hematoma: Status: Acute Plan 83M PMH CKD III, pafib, hfpef, pacer, htn, hld, prosate ca, bladder ca, kendall, mgus with positive panca, presented for kidney biopsy, admitted for observation due to subacpsular hematoma renal hematoma s/p biopsy pain better controlled hgb stable IR appreciated, okay to restart eliquis jil on CKD III holding lasix, gentle hydration, nephro following, creatinine continues to increase hyperkalemia holding K supplement s/p 10mg lokelma, improved, monitor pafib with rvr eliquis amiodarone hfpef holding diuretics for jil dvt prophylaxis - eliquis full code reason for continued hospitalization:jil Quality Stroke Does the patient have a stroke diagnosis?: No VTE Prior VTE?: No VTE Risk Level:: Medical - moderate - high VTE Device Contraindication: N/A - Device Ordered VTE Drug Contraindication: Treatment Not Tolerated
[2024-06-01 11:55] VITALS: BP 109/59; PULSE 67; RESP 14; TEMP 36.6; O2SAT 95
[2024-06-01 15:19] VITALS: BP 105/59; PULSE 67; RESP 18; TEMP 37.1; O2SAT 96
[2024-06-01 20:00] VITALS: BP 105/56; PULSE 66; RESP 20; TEMP 37.2; O2SAT 93
[2024-06-01] MEDS: Tamsulosin HCL 0.4 MG CAPSULE PO (20:32)
[2024-06-01] MEDS: 0.9 % Sodium Chloride Flush 3 ML SYRINGE IVFLUSH (23:05)
[2024-06-01 23:43] VITALS: BP 110/60; PULSE 66; RESP 18; TEMP 36.8; O2SAT 94
[2024-06-02] MEDS: oxyCODONE HCl Immed Release 5 MG TABLET PO (02:11)
[2024-06-02] MEDS: LORazepam 1 MG TABLET PO (03:29)
[2024-06-02 03:43] VITALS: BP 106/59; PULSE 90; RESP 16; TEMP 36.2; O2SAT 94
[2024-06-02 06:39] LABS: Anion Gap 14 (12-20); Blood Urea Nitrogen 75 mg/dL (9-16); Calcium 8.4 mg/dL (8.4-10.2); Carbon Dioxide 28 mmol/L (22-29); Chloride 95 mmol/L (96-108); Creatinine Clr Calc Pharmacy 13.7; Estimated Glomerular Filt Rate 14; Glucose Random 101 mg/dL (60-115); Potassium 4.9 mmol/L (3.3-5.1); Sodium 132 mmol/L (135-145)
[2024-06-02 06:48] LABS: Hematocrit 32.4 % (42.0-52.0); Hemoglobin 10.6 g/dl (14.0-18.0); Mean Corpuscular HGB Conc 32.7 g/dl (31.0-36.0); Mean Corpuscular Hemoglobin 31.2 pg (27.0-33.0); Mean Corpuscular Volume 95.3 fL (80.0-98.0); Mean Platelet Volume 10.6 fL (9.4-12.4); Platelet Count 173 X10*3/uL (160-400); Red Cell Distribution Width 16.2 % (11.0-16.0)
[2024-06-02 07:01] VITALS: BP 109/57; PULSE 68; RESP 16; TEMP 36.1; O2SAT 94
--- NOTE | 2024-06-02 08:28 | P.PNIM_ITS ---
Subjective Subjective Date of Service: 06/02/24 Interval History: pain improved Physical Exam 2 Vital Signs: Vital Signs: Last Vital Signs Temp 97 F 06/02/24 07:01 Pulse 68 06/02/24 07:01 Resp 16 06/02/24 07:01 BP 109/57 L 06/02/24 07:01 Pulse Ox 94 06/02/24 07:01 O2 Del Method Nasal Cannula 06/02/24 07:01 O2 Flow Rate 2 06/02/24 07:01 BMI result Body Mass Index 34.2 Const: General: alert and awake Resp: Effort & Inspection: normal respiratory effort and able to speak in complete sentences Auscultation: clear to auscultation bilaterally Cardio: Rate: regular rate Rhythm: regular rhythm Heart sounds: S1 normal heart sound present and S2 normal heart sound present GI: Palpation (GI): Soft to palpation and nontender : Other: right mid back pain, has renal hematoma. reports pain is improving General: Yes CVA tenderness Back/Spine/Pelvis: Other: right renal hematoma, pt reports pain improved since yesterday. Back: CVA tenderness Skin: Rashes: no rashes Extrem: General: Yes edema (trace BLE pitting edema ) Objective Data Active Medications Amiodarone HCl (Amiodarone Hcl 200 Mg Tablet) 200 mg PO DAILY [facility] Last Admin: 06/01/24 08:34 Dose: 200 mg Documented By: ERIS Apixaban (Apixaban 2.5 Mg Tablet) 2.5 mg PO BID [facility] Last Admin: 06/01/24 20:32 Dose: 2.5 mg Documented By: FRANCA Calcium Carbonate (Calcium Carbonate 750 Mg Tab.Chew) 750 mg PO Q4H PRN PRN Reason: Heartburn Docusate Sodium (Docusate Sodium 100 Mg Capsule) 100 mg PO BID [facility] Last Admin: 06/01/24 20:32 Dose: 100 mg Documented By: FRANCA Ferrous Sulfate (Ferrous Sulfate 324 Mg Tablet.Dr) 324 mg PO DAILY [facility] Last Admin: 06/01/24 08:34 Dose: 324 mg Documented By: ERIS Lorazepam (Lorazepam 1 Mg Tablet) 1 mg PO Q4H PRN PRN Reason: Anxiety Last Admin: 06/02/24 03:29 Dose: 1 mg Documented By: FRANCA Magnesium Hydroxide (Milk Of Magnesia 30 Ml Oral.Susp) 30 ml PO DAILY PRN PRN Reason: Constipation Melatonin (Melatonin 3 Mg Tablet) 6 mg PO BEDTIME PRN PRN Reason: Insomnia Last Admin: 05/29/24 20:49 Dose: 6 mg Documented By: SHENA Multivitamins/Vitamin C (Multivitamin Tablet) 1 tab PO DAILY [facility] Last Admin: 06/01/24 08:34 Dose: 1 tab Documented By: ERIS Ondansetron HCl (Ondansetron Hcl 4 Mg/2 Ml Vial) 4 mg IVPUSH Q8H PRN PRN Reason: Nausea and Vomiting Last Admin: 05/29/24 14:26 Dose: 4 mg Documented By: KALIA Oxycodone HCl (Oxycodone Hcl Immed Release 5 Mg Tablet) 5 mg PO Q6H PRN PRN Reason: Pain, Severe (Pain Scale 7-10) Last Admin: 06/02/24 02:11 Dose: 5 mg Documented By: FRANCA Polyethylene Glycol (Polyethylene Glycol 3350 17 Gm Powd.Pack) 17 gm PO DAILY [facility] Last Admin: 06/01/24 08:34 Dose: 17 gm Documented By: ERIS Sodium Chloride (0.9 % Sodium Chloride Flush 3 Ml Syringe) 3 ml IVFLUSH QSHIFT [facility] Last Admin: 06/01/24 23:05 Dose: 3 ml Documented By: FRANCA Tamsulosin HCl (Tamsulosin Hcl 0.4 Mg Capsule) 0.4 mg PO BEDTIME [facility] Last Admin: 06/01/24 20:32 Dose: 0.4 mg Documented By: FRANCA Vitamin D (Cholecalciferol (Vitamin D3) 25 Mcg Tablet) 25 mcg PO DAILY [facility] Last Admin: 06/01/24 08:34 Dose: 25 mcg Documented By: ERIS Labs 06/02/24 05:28 06/02/24 05:28 Labs: Laboratory Results - last 24 hr 06/02/24 05:28 MCV 95.3 MCH 31.2 MCHC 32.7 RDW 16.2 H Plt Count 173 MPV 10.6 Absolute Nucleated RBC 0.000 Nucleated RBC % (auto) 0.0 Anion Gap 14 Estim Creat Clear Calc 13.7 Estimated GFR 14 Random Glucose 101 Calcium 8.4 Assessment and Plan (1) Renal hematoma: Status: Acute Plan 83M PMH CKD III, pafib, hfpef, pacer, htn, hld, prosate ca, bladder ca, kendall, mgus with positive panca, presented for kidney biopsy, admitted for observation due to subacpsular hematoma renal hematoma s/p biopsy pain better controlled hgb stable IR appreciated, restarted eliquis jil on CKD III holding lasix, gentle hydration, nephro following, creatinine continues to increase, monitor hyperkalemia holding K supplement s/p 10mg lokelma, improved, monitor pafib with rvr eliquis amiodarone hfpef holding diuretics for jil dvt prophylaxis - eliquis full code reason for continued hospitalization:jil Quality Stroke Does the patient have a stroke diagnosis?: No VTE Prior VTE?: No VTE Risk Level:: Medical - moderate - high VTE Device Contraindication: N/A - Device Ordered VTE Drug Contraindication: Treatment Not Tolerated
[2024-06-02] MEDS: polyethylene glycoL 3350 17 GM POWD.PACK PO (09:04)
[2024-06-02] MEDS: Apixaban 2.5 MG TABLET PO ×2 (09:05→19:23)
[2024-06-02] MEDS: Cholecalciferol (Vitamin D3) 25 MCG TABLET PO (09:05)
[2024-06-02] MEDS: Ferrous Sulfate 324 MG TABLET.DR PO (09:05)
[2024-06-02] MEDS: Docusate Sodium 100 MG CAPSULE PO ×2 (09:05→19:23)
[2024-06-02] MEDS: Multivitamin TABLET 1 TAB PO (09:05)
[2024-06-02] MEDS: Amiodarone HCL 200 MG TABLET PO (09:05)
[2024-06-02] MEDS: 0.9 % Sodium Chloride Flush 3 ML SYRINGE IVFLUSH ×3 (09:05→19:30)
--- NOTE | 2024-06-02 11:51 | MHC.CM.PN ---
EMR REVIEWED AND PER MD ROUNDS, PT IS NOT MEDICALLY CLEARED FOR DC (LABS, RENAL FUNCTION MONITORING) [facility] UPDATED VIA [employer]. CM WILL CONTINUE TO FOLLOW FOR ANY CHANGE TO DC PLAN.
[2024-06-02 12:04] VITALS: BP 98/62; PULSE 62; RESP 16; TEMP 36.4; O2SAT 98
--- NOTE | 2024-06-02 12:27 | HO.WOUND ---
Wound Consult: Initial 83yr old? Male admitted to [facility] on 05/30/24 - See progress notes and H&P for detailed history.? Wound consult placed for Buttock and Groin.? Patient agreeable to assessment and photo documentation.? Patient reports he is incontinent at baseline and wear briefs at home, he denies use of barrier creams. Patient is extremely QUINAULT making communication difficult - he was able to answer questions but at times he was unable to hear- he reports he did not want to loose his hearing aides so he left them home. Scrotum and Groin Etiology: ??MASD (Moisture Associated Skin Damage) Wound Bed: red pink moist tissue with swelling noted to scrotum - patient reports swelling is significantly decreased Drainage / Odor: none noted Edges: ? mirrored Opal wound: intact ? No Induration, Fluctuance or Warmth noted Pain: tenderness reported Goals of Treatment: ? Barrier cream to protect from friction and moisture Sacrum and Buttock Etiology: ??MASD (Moisture Associated Skin Damage) Wound Bed: red pink moist tissue remain blanchable with desquamation noted Drainage / Odor: none noted Edges: ? mirrored Opal wound: intact ? No Induration, Fluctuance or Warmth noted Pain: tenderness reported Goals of Treatment: ? Barrier cream to protect from friction and moisture off load pressure Recommendations: 1. Turn and Reposition every 2 hours and as needed for patient comfort.? Use pillows or wedges to support off loading positions. 2. Off Load all bony prominences with use of pillows and heel boots if needed.? Apply Preventative foams where needed. ? 3. Monitor for incontinence and moisture control, use barrier creams when needed for prevention and treatment. 4. Provide adequate and supplemental nutrition.? 5. Order low air loss mattress. 6. When applicable maintain blood glucose levels per Providers order. 7. Scrotum - Routine cleansing, apply barrier cream twice daily and PRN after episodes of incontinence. 8. Sacrum and Buttocks - Routine cleansing, apply barrier cream twice daily and PRN after episodes of incontinence. Off Load Pressure with Q2hr turns and pillows. Re-consult wound care Nurse for wound deterioration or wound changes.
--- NOTE | 2024-06-02 12:45 | P.PNNP_ITS ---
Subjective Subjective Date of Service: 06/02/24 Interval history: Events noted pain improved Physical Exam 2 Vital Signs: Vital Signs: Last Vital Signs Temp 97.5 F 06/02/24 12:04 Pulse 62 06/02/24 12:04 Resp 16 06/02/24 12:04 BP 98/62 06/02/24 12:04 Pulse Ox 98 06/02/24 12:04 O2 Del Method Nasal Cannula 06/02/24 12:04 O2 Flow Rate 2 06/02/24 12:04 BMI result Body Mass Index 34.2 Awake. Comfortable. Neck is supple. Mucosa moist. Lungs bilateral scattered rhonchi. Heart S1-S2 heard no gallop. Abdomen soft. Extremities 2+ edema. No involuntary movements. No myoclonus. Objective Data Labs 06/02/24 05:28 06/02/24 05:28 Labs: Laboratory Results - last 24 hr 06/02/24 05:28 WBC 12.0 H RBC 3.40 L Hgb 10.6 L Hct 32.4 L MCV 95.3 MCH 31.2 MCHC 32.7 RDW 16.2 H Plt Count 173 MPV 10.6 Absolute Nucleated RBC 0.000 Nucleated RBC % (auto) 0.0 Sodium 132 L Potassium 4.9 Chloride 95 L Carbon Dioxide 28 Anion Gap 14 BUN 75 H Creatinine 3.99 H Estim Creat Clear Calc 13.7 Estimated GFR 14 Random Glucose 101 Calcium 8.4 Procedures Date of Service Date of Service: 06/02/24 Assessment & Plan Assessment and plan (1) Chronic kidney disease, stage 3: Status: Acute (2) Renal hematoma: Status: Acute Plan JB likely tubular injury from bleeding from renal hematoma blood transfusion support as needed No need for further IV fluids Continue avoid nephrotoxins, regular blood pressure checks, daily renal function and electrolyte checks continue supportive care Once creatinine hits a plateau or improves he can be discharged. Time Spent With Patient Time: Total time managing care of this patient today ____ minutes. Progress Note: Quality Stroke Does the patient have a stroke diagnosis?: No
[2024-06-02 15:05] VITALS: BP 114/64; PULSE 63; RESP 18; TEMP 36.3; O2SAT 97
[2024-06-02 19:05] VITALS: BP 115/62; PULSE 60; RESP 18; TEMP 36.4; O2SAT 98
[2024-06-02] MEDS: Tamsulosin HCL 0.4 MG CAPSULE PO (19:23)
[2024-06-03] VITALS: BP 127/71; PULSE 61; RESP 18; TEMP 36.7; O2SAT 97
[2024-06-03 03:05] VITALS: BP 117/60; PULSE 60; RESP 18; TEMP 36.7; O2SAT 96
[2024-06-03 05:57] LABS: Hematocrit 32.6 % (42.0-52.0); Hemoglobin 10.8 g/dl (14.0-18.0); Mean Corpuscular HGB Conc 33.1 g/dl (31.0-36.0); Mean Corpuscular Volume 93.7 fL (80.0-98.0); Mean Platelet Volume 9.7 fL (9.4-12.4); Platelet Count 171 X10*3/uL (160-400); Red Blood Count 3.48 X10*6/uL (4.60-5.80); Red Cell Distribution Width 16.1 % (11.0-16.0); White Blood Count 10.7 X10*3/uL (4.8-10.8)
[2024-06-03 06:19] LABS: Anion Gap 16 (12-20); Blood Urea Nitrogen 78 mg/dL (9-16); Calcium 8.8 mg/dL (8.4-10.2); Carbon Dioxide 25 mmol/L (22-29); Chloride 94 mmol/L (96-108); Creatinine Clr Calc Pharmacy 14.1; Estimated Glomerular Filt Rate 15; Glucose Random 85 mg/dL (60-115); Potassium 5.1 mmol/L (3.3-5.1); Sodium 130 mmol/L (135-145)
--- NOTE | 2024-06-03 07:31 | PM.DS ---
DS: Providers Provider Date of Service: 06/03/24 Date of admission: 05/30/24 10:34 Date of discharge: 06/03/24 Primary care physician: Minnie Lowe MD Consults: 05/29/24 19:12 Consult to Wound Care Routine Reason for consultation: bilateral buutocks redness,bilateral groin redness,right AC area skin tear Has provider been notified: No 05/30/24 09:06 Consult to Nephrology Routine Consulting Provider: [facility] Reason for consultation: jil on ckd 05/30/24 10:31 Consult to Wound Care Routine Reason for consultation: bilateral buttocks redness, bilateral groin redness,right AC area skin tear Has provider been notified: Yes DS: Diagnosis Discharge Diagnosis (1) Chronic kidney disease, stage 3: Start date: 06/03/24 Status: Acute (2) Renal hematoma: Start date: 06/03/24 Status: Acute DS: Summary Hospital Course Hospital Course: inti 83-year-old male with a PMH significant for?paroxysmal AFib on Eliquis, HFpEF, pacemaker in place, tricuspid regurgitation HTN, HLD, prostate cancer, bladder cancer, hx of bladder outlet obstruction, CKD3, and SHALONDA who initially presented to [facility] for kidney biopsy in the setting of monoclonal gammopathy and positive p-ANCA. Procedure was complicated by subscapular hematoma which was noted on CT of abdomen after patient awoke complaining of constant left-sided back pain. Patient has received Dilaudid 0.5 mg x 2 doses with little relief. Patient states pain continues to be constant, 10/10, nonradiating, and located in left lower back at site of biopsy. Patient otherwise denies any acute medical complaints. No shortness a breath or difficulty breathing. Denies chest pain/pressure, palpitations. No fever, chills, nausea, vomiting, abdominal pain. BP has been slightly soft as low as 93/49, but currently stable at 101/51. hospital course: Patient was admitted due to renal hematoma status post kidney biopsy. His hemoglobin remained stable, he was restarted on apixaban and tolerated. Course was complicated by acute kidney injury on CKD 3. His diuretics were held he received gentle hydration. Creatinine has now plateaued around 3.9. He will continue to hold his diuretics on discharge and follow-up later this week with Nephrology. For acute hyperkalemia his potassium supplements have been held he received 10 mg of low, and potassium improved. For paroxysmal atrial fibrillation with rapid ventricular response he was continued on amiodarone and Eliquis, converted back to sinus. For chronic diastolic CHF his diuretics were held as mentioned. Patient is feeling better will be discharged home. Time Attestation Discharge Coordination Time (in mins): 32 Quality: Safe Use of Opioids Does Pt have an Active Cancer Diagnosis on the Problem List?: No Quality: Stroke Does the patient have a stroke diagnosis?: No Physical Exam Vital Signs: Vital Signs: Last Vital Signs Temp 98.0 F 06/03/24 03:05 Pulse 60 06/03/24 03:05 Resp 18 06/03/24 03:05 BP 117/60 06/03/24 03:05 Pulse Ox 96 06/03/24 03:05 O2 Del Method Nasal Cannula 06/03/24 03:05 O2 Flow Rate 2 06/03/24 03:05 BMI result Body Mass Index 34.2 Awake. Comfortable. Neck is supple. Mucosa moist. Lungs bilateral scattered rhonchi. Heart S1-S2 heard no gallop. Abdomen soft. Extremities 2+ edema. No involuntary movements. No myoclonus. DS: Data Data Completed and Pending Completed studies during hospitalization [Text1]: Pending at discharge 05/29/24 11:16 Surgical Path [Surgical] [PTH] Routine Procedures Insertion of Infusion Device into Superior Vena Cava, Percutaneous Approach (05/17/23) Introduction of Vasopressor into Peripheral Vein, Percutaneous Approach (04/20/24) Ultrasonography of Superior Vena Cava, Guidance (05/17/23) Labs on day of discharge: Laboratory Results - last 24 hr 06/03/24 05:49 WBC 10.7 RBC 3.48 L Hgb 10.8 L Hct 32.6 L MCV 93.7 MCH 31.0 MCHC 33.1 RDW 16.1 H Plt Count 171 MPV 9.7 Absolute Nucleated RBC 0.000 Nucleated RBC % (auto) 0.0 Sodium 130 L Potassium 5.1 Chloride 94 L Carbon Dioxide 25 Anion Gap 16 BUN 78 H Creatinine 3.87 H Estim Creat Clear Calc 14.1 Estimated GFR 15 Random Glucose 85 Calcium 8.8 Discharge Plan Discharge Anticipated Discharge Date/Time: 06/03/24 07:23 Patient Disposition: Home Health Service Discharge Diagnosis: jil, renal hematoma Referrals: Will OTOOLE [Outside] - 1 Week (RESUMPTION OF HOME SERVICES FOR [facility] AND PHYSICAL THERAPY- A NURSE WILL CALL YOU FOR RESUMPTION VISIT.) Minnie Lowe MD [Primary Care Provider] - 1 Week Newton Camejo MD [Physician] - 1 Day Discharge Medications: Continued tamsulosin 0.4 mg capsule 0.4 mg PO BEDTIME 90 Days Qty: 90 3RF Ensure High Protein Liquid 1 ea PO TID Qty: 237 11RF Rx Instructions: Chocolate flavor please calcium carbonate-vitamin D3 600 mg-5 mcg (200 unit) Tablet 1 tab PO DAILY cholecalciferol (vitamin D3) 25 mcg (1,000 unit) Tablet 25 mcg PO DAILY ferrous sulfate 325 mg (65 mg iron) tablet 325 mg PO DAILY Eliquis 2.5 mg Tablet 2.5 mg PO BID Qty: 60 0RF acetaminophen 650 mg Tablet Extended Release 650 mg PO BID PRN (Reason: Fever Or Pain) multivitamin Tablet 1 tab PO DAILY amiodarone 200 mg tablet 200 mg PO DAILY tramadol 50 mg tablet 25 mg PO Q12H PRN (Reason: pain) Qty: 30 0RF Held metolazone 2.5 mg Tablet 2.5 mg PO MO Hold Instructions: Resume on 06/05/24. furosemide 80 mg tablet 80 mg PO BID Hold Instructions: Resume on 06/05/24. potassium chloride 20 mEq tablet extended release 40 meq PO BID 90 Days Qty: 360 2RF Hold Instructions: Resume on 06/05/24. Discharge Orders: Discharge Order (Routine); Ordered 06/03/24 Ordered By: Reigs Hernandez Diet: Advance to usual diet Activity on Discharge: As tolerated Stand Alone Forms: Patient Portal Discharge page Print Language: Panamanian Care Plan Goals: recovery Health Concerns: Acute kidney injury on CKD 3, renal hematoma Plan of Treatment: Follow-up with kidney doctors, hold diuretics and potassium supplements until seen by kidney doctor Assessment: See above Discharge Date/Time: 06/03/24 09:22
[2024-06-03 07:41] VITALS: BP 117/60; PULSE 60; O2SAT 96
[2024-06-03 07:43] VITALS: BP 110/66; PULSE 58; RESP 16; TEMP 36.8; O2SAT 97
[2024-06-03 07:58] VITALS: O2SAT 93
[2024-06-03] MEDS: Docusate Sodium 100 MG CAPSULE PO (07:58)
[2024-06-03] MEDS: Ferrous Sulfate 324 MG TABLET.DR PO (07:59)
[2024-06-03] MEDS: Multivitamin TABLET 1 TAB PO (07:59)
[2024-06-03] MEDS: Amiodarone HCL 200 MG TABLET PO (07:59)
[2024-06-03] MEDS: Apixaban 2.5 MG TABLET PO (07:59)
[2024-06-03] MEDS: Cholecalciferol (Vitamin D3) 25 MCG TABLET PO (07:59)
[2024-06-03] MEDS: 0.9 % Sodium Chloride Flush 3 ML SYRINGE IVFLUSH (07:59)
--- NOTE | 2024-06-03 08:54 | MHC.CM.PN ---
DP: PT HAS BEEN MEDICALLY CLEARED FOR DC HOME WITH RESUMPTION OF [facility]. [facility] NOTIFIED OF TODAY'S DC. WILL TRANSPORT HOME. FINAL IMM DELIVERED.
--- NOTE | 2024-06-03 08:59 | W.MHC.F2F ---
Service Date Service Date: 06/03/24 Encounter Date of encounter: 06/03/24 Reasons for Services Signs and symptoms assessed: Weakness, occasional confusion Reason for senior living: medication management, medication treatment and teach disease management Reason for physical therapy: home safety and mobility and therapeutic exercises Homebound: Leaving the home is medically contraindicated at this time without the asist of a device and/or another person due th the listed conditions above and below. Reason homebound: unsteady gait / fall risk and cognitively impaired / unsafe Certification: Based on the above findings, I certify that this patient is confined to the home and needs intermittent senior living care, physical therapy and/or speech therapy, or continues to need occupational therapy. The patient is under my care, and I have initiated the establishment of the plan of care. The patient will be followed by a physician who will periodically review the plan of care. Time Spent With Patient Time: Total time managing care of this patient today ____ minutes.
== END 2024-06-03 09:22 | disposition home health service (06) | DRG 919 ==
LOC: HO.SSSA 12:59 → HO.S3 14:19
PROVIDERS: Physician Assistant Surgical; Admitting Provider Internal Medicine; PCP Internal Medicine; Visit Provider Internal Medicine
DX: N99.840 Postprocedural hematoma of a genitourinary system organ or structure following a genitourinary system procedure (principal); N17.0 Acute kidney failure with tubular necrosis; I13.0 Hypertensive heart and chronic kidney disease with heart failure and stage 1 through stage 4 chronic kidney disease, or unspecified chronic kidney disease; I50.32 Chronic diastolic (congestive) heart failure; E87.5 Hyperkalemia; N18.32 Chronic kidney disease, stage 3b; G89.18 Other acute postprocedural pain; D47.2 Monoclonal gammopathy; G47.33 Obstructive sleep apnea (adult) (pediatric); I48.0 Paroxysmal atrial fibrillation; Z79.01 Long term (current) use of anticoagulants; Z79.899 Other long term (current) drug therapy
CPT/HCPCS: 36415; 50200; 74150; 76775; 77012; 80048; 85014; 85018; 85027; 85610; 85730; 86850; 86900; 86901; 88300; 88305; 88313; 88346; 88348; 88350; 93005; 97162; 99152; 99221; J0131; J1171; J2003; J2250; J2310; J2405; J3010

== ENCOUNTER → 2024-05-29 12:54 | Outpatient (BNV) | payer MEDICARE, OTHER, SELFPAY | PROVIDERS: Admitting Provider Internal Medicine; PCP Internal Medicine; Visit Provider Student in an Organized Health Care Education/Training Program | DX: S37.011D Minor contusion of right kidney, subsequent encounter (principal) | CPT/HCPCS: 99222; 99232; 99233; 99239; G0180 ==

== ENCOUNTER → 2024-05-29 12:54 | Outpatient (BNV) | payer MEDICARE, OTHER, SELFPAY | PROVIDERS: Admitting Provider Internal Medicine; PCP Internal Medicine; Visit Provider Physician Assistant Surgical | DX: N17.9 Acute kidney failure, unspecified (principal) | CPT/HCPCS: 50200; 77012; 99499 ==

== ENCOUNTER 2024-05-30 10:34 | Outpatient (BNV) | payer MEDICARE, OTHER, SELFPAY | END 2024-05-31 08:18 | PROVIDERS: Admitting Provider Internal Medicine; PCP Internal Medicine; Visit Provider Internal Medicine | DX: R00.0 Tachycardia, unspecified (principal); R94.31 Abnormal electrocardiogram [ECG] [EKG] | CPT/HCPCS: 93010 ==

== ENCOUNTER → 2024-05-30 10:34 | Outpatient (BNV) | payer MEDICARE, OTHER, SELFPAY | PROVIDERS: Admitting Provider Internal Medicine; PCP Internal Medicine; Visit Provider Nurse Practitioner Family | DX: N18.32 Chronic kidney disease, stage 3b (principal); S37.011D Minor contusion of right kidney, subsequent encounter | CPT/HCPCS: 99222; 99232 ==

== ENCOUNTER 2024-06-05 10:16 | Outpatient (AMB) | payer MEDICARE, OTHER, SELFPAY ==
--- NOTE | 2024-06-05 10:15 | HO.NEPHOV ---
Vital Signs 06/05/24 10:17 Height 5 ft 4 in Weight 204 lb BMI 35.0 BP 105/60 Blood Pressure Location Lt brachial Position Sitting Pulse 60 Pulse Source Pulse Oximeter Pulse Oximetry (%) 94 Oxygen Delivery Method Room Air Intake Visit Reasons: Discharged from [facility] 06/03/24 Human Resources Operations Director Required: No Allergies No Known Allergies Allergy (Verified 06/05/24 10:18) Medication List - Last Reconciled 06/05/24 by Dread Justice MD acetaminophen ER 650 mg PO BID PRN amiodarone 200 mg PO DAILY apixaban (Eliquis) 2.5 mg PO BID calcium carbonate-vitamin D3 600 mg-5 mcg (200 unit) 1 tab PO DAILY cholecalciferol (vitamin D3) 25 mcg PO DAILY Ensure High Protein (food supplemt, lactose-reduced) 1 ea PO TID NS ferrous sulfate 325 mg PO DAILY furosemide 80 mg PO DAILY metolazone 2.5 mg PO MO multivitamin 1 tab PO DAILY potassium chloride ER 40 mEq (2 x 20 mEq) PO BID 90 days tamsulosin 0.4 mg PO BEDTIME 90 days tramadol 25 mg (1/2 x 50 mg) PO Q12H PRN Do you need a note to return to daycare/school/sports/work: No HPI Comments Details: Monica is a pleasant 83-year-old man who has been referred for acute kidney injury and resistant edema He is on escalating dose of 3 diuretics and there has been no improvement in the edema. He has developed JB with contraction alkalosis. Baseline creatinine has been around 1.2 mg/dL which has increased to 2.3 mg/dL Has a history of cardiomyopathy and non rheumatic tricuspid regurgitation. He has a history of atrial fibrillation and currently on anticoagulation. Echocardiogram in 06/30/2023 showed mildly reduced LV ejection fraction of 45-50%. Moderately dilated right ventricle with moderately reduced RV systolic function Biatrial enlargement with severe left atrial enlargement Moderate elevation of right ventricular systolic pressure. History of bladder cancer and prostate cancer. History of bladder outlet obstruction in the past. He has anemia. 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 Recently hospitalized for septic shock. Continues to have significant edema in legs and scrotum. 05/22/2024. Jung feeling better today he was lost about 10 lb.. Scheduled for kidney biopsy next week. 06/05/2024. Jung was seen today in follow-up after his recent hospitalization. He had a kidney biopsy which was complicated by hemorrhage. He required blood transfusion. Baseline creatinine is around 1 point 8-2.5 mg/dL. However prior to admission the creatinine was already trending upwards. After biopsy creatinine peaked at 3.99. The diuretics were held he was given IV fluids cautiously. And once serum creatinine plateaued he was discharged 2 days ago. Currently he is not on any diuretics. He was accompanied by his family members. [facility] Medical History Persistent atrial fibrillation Pacemaker Chronic kidney disease, stage 3 Fatty liver Bilateral lower extremity edema SHALONDA (obstructive sleep apnea) Cardiomyopathy Pulmonary hypertension Nonrheumatic tricuspid (valve) insufficiency Chronic right heart failure Current use of anticoagulant therapy Anticoagulated on Coumadin Right rib fracture CHF (congestive heart failure) Nocturnal hypoxemia Peripheral edema Annual physical exam Left tennis elbow Essential hypertension PAF (paroxysmal atrial fibrillation) History of hydrocele Nocturia Bladder outlet obstruction Bladder cancer Prostate cancer Hyperlipidemia HTN (hypertension) Normally functioning cardiac pacemaker present Varicose veins of bilateral lower extremities with other complications Surgical History History of hydrocelectomy Hx of varicose vein stripping Hx of subdural hematoma History of phacoemulsification of cataract of both eyes with intraocular lens implantation Hx of cardiac pacemaker Hx of colonoscopy Hx of parathyroidectomy Hx of cystoscopy Family History Father Cancer Prostate cancer Mother Cancer, Onset Age: 85 Son No problems noted. Daughter No problems noted. Maternal Grandfather No problems noted. Maternal Grandmother No problems noted. Paternal Grandfather No problems noted. Paternal Grandmother No problems noted. Social History Household Members: Spouse Housing: House Are you a primary senior care specialist to a significant other at home: No Do you presently have visiting nurse or other home services: Yes Alcohol intake: current Alcohol intake frequency: holidays/special occasions only Alcohol type: wine Patient Tobacco Use Status: Never used Tobacco e-Cigarette/Vaping Use: Never Used Advance Directives Date on File: 05/02/21 service: No Current occupational status: retired Cognitive needs: No Hearing needs: No Vision needs: Yes Physical Exam Vital Signs: Last Vital Signs Pulse 60 06/05/24 10:17 BP 105/60 06/05/24 10:17 Pulse Ox 94 06/05/24 10:17 Oxygen Delivery Method Room Air 06/05/24 10:17 BMI result Body Mass Index 35.0 Const General: comfortable; No acute distress Orientation/consciousness: patient oriented x3 Eyes General: appearance normal, both eyes and all related structures Visual Martin: normal visual martin by confrontation Neck Neck: Yes supple and Yes no JVD Resp Effort & Inspection: normal respiratory effort and respiratory effort not decreased Auscultation: rhonchi Cardio Palpation: no palpable S3 and no palpable S4 Heart sounds: no rubs GI Inspection: Yes normal to inspection Palpation (GI): Soft to palpation Percussion: Yes normal to percussion Auscultation: normal bowel sounds General: Yes no CVA tenderness Back/Spine/Pelvis Back: no CVA tenderness Skin General skin exam: no petechiae and no purpura Neuro General: patient oriented x3 and no focal motor deficits Extrem General: No clubbing and Yes edema (Massive edema with weeping leg wounds. Scrotal edema) Results Reviewed Nephrology Results: Hgb 10.8 g/dl (14.0-18.0) L 06/03/24 WBC 10.7 X10*3/uL (4.8-10.8) 06/03/24 Plt Count 171 X10*3/uL (160-400) 06/03/24 Sodium 130 mmol/L (135-145) L 06/03/24 Potassium 5.1 mmol/L (3.3-5.1) 06/03/24 Chloride 94 mmol/L (96-108) L 06/03/24 Carbon Dioxide 25 mmol/L (22-29) 06/03/24 BUN 78 mg/dL (9-16) H 06/03/24 Creatinine 3.87 mg/dL (0.5-1.4) H 06/03/24 Calcium 8.8 mg/dL (8.4-10.2) 06/03/24 Renal US 05/30/24 Assessment & Plan Assessment & Plan (1) JB (acute kidney injury): Code(s): N17.9 - Acute kidney failure, unspecified Category: Medical (2) Monoclonal gammopathy: Code(s): D47.2 - Monoclonal gammopathy Category: Medical (3) Chronic kidney disease, stage 3: Code(s): N18.30 - Chronic kidney disease, stage 3 unspecified Category: Medical Qualifiers: Chronic kidney disease stage 3 subtype: stage 3b (GFR 30-44) Qualified Code(s): N18.32 - Chronic kidney disease, stage 3b (4) JB (acute kidney injury): Code(s): N17.9 - Acute kidney failure, unspecified Category: Medical (5) Bladder outlet obstruction: Code(s): N32.0 - Bladder-neck obstruction Category: Medical Plan Jung has acute kidney injury with resistant edema in the setting of right heart failure. 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 No Obstructive uropathy based on ultrasonogram Massive lower extremity and scrotal edema primarily due to right heart failure. Acute kidney injury superimposed on chronic kidney disease. Acute kidney injury is most likely due to tubular injury. Creatinine was trending upwards even before the kidney biopsy and hemorrhage. After discontinuing the diuretics renal function is gradually improving Clinically appears volume overloaded at this time. I will start him back on Lasix 80 mg once a day instead of b.i.d.. Stay on low-sodium diet Await kidney biopsy results. Discussed with pathologist and the preliminary results do not reveal any active crescents given the history of p-ANCA positive IVF is still pain Ordered another blood test in the next 4 days to follow renal function. Orders: Orders Basic Metabolic Panel 4 Days N17.9 - Acute kidney failure, unspecified Complete Blood Count no Diff 4 Days N17.9 - Acute kidney failure, unspecified Medications: New furosemide 80 mg PO DAILY 30 tabs 1RF Coding Level of Care Code Est Pt Level 5 (22061) Complex EM visit Add On G2211 Diagnoses JB (acute kidney injury) N17.9 Monoclonal gammopathy D47.2 Stage 3b chronic kidney disease N18.32 Chronic kidney disease stage 3 subtype: stage 3b (GFR 30-44) Bladder outlet obstruction N32.0
[2024-06-05 10:17] VITALS: BP 105/60; PULSE 60; O2SAT 94; BMI 35.0
--- OUTSIDE RECORDS SUMMARY | 2024-06-05 10:18 | XMS_ITS | Patient Health Record ---
Author Organization Chago Peres III, MD Address [address] [place] [address] Care Team Providers Care Bin Filler Name Role Phone HAZEL DAVIS MD Primary Care Provider Chago De La Cruz Unavailable [phone] Allergies Allergen (clinical drug ingredient) Drug/Non Drug Allergy documented on EMR Reaction Allergy Type Onset Date Status No Known Drug Allergy Unknown Drug Allergy Active Results Component Value Reference Range Notes Complete Blood Count Auto Di ff Reviewed date:07/01/2023 08:43:36 AM Interpretation: Performing Lab:[facility], [address] [place] [phone] Notes/Report: White Blood Count 7.0 4.8-10.8 X10*3/uL [...] NRBC Abs Auto 0.000 0.0-0.012 X10*3/uL Comprehensive [place]. Panel Fa st Reviewed date:07/01/2023 08:43:36 AM Interpretation: Performing Lab:[facility], [address] [place] [phone] Notes/Report: Sodium 145 135-145 mmol/L Potassium 3.3 3.3-5.1 mmol/L Chloride 104 96-108 mmol/L Carbon Dioxide 30 22-29 mmol/L Anion Gap 14 12-20 Blood Urea Nitrogen 25 9-16 mg/dL Creatinine 1.20 0.5-1.4 mg/dL Estimated Glomerular Filt Rate 58 NOTE: For -Serbian individuals, multiply the result by 1.210. Chronic [...] Panel Reviewed date:07/01/2023 08:43:36 AM Interpretation: Performing Lab:[facility], [address] [place] [phone] Notes/Report: Triglycerides 82 <150 mg/dL Desirable Triglyceride: [...] Antigen Reviewed date:07/01/2023 08:43:36 AM Interpretation: Performing Lab:[facility], [address] [place] [phone] Notes/Report: Prostate Specific Antigen 0.11 <0.05-4.0 ng/mL PSA methodology: Isaac Alinity i Chemiluminescent Microparticle Immunoassay (CMIA) [place]/Lambda Lt Ch,Free w ra t Reviewed date:07/06/2023 11:22:43 AM Interpretation: Performing Lab:[facility], [address] [place] [phone] Notes/Report: [place] Light Chain, Free Serum 81.7 3.3-19.4 mg/L Lambda Light Chain, Free Serum 38.9 5.7-26.3 mg/L [place]/Lambda Lt Ch Free Ratio 2.10 0.26-1.65 Free [...] these disorders. THIS TEST WAS PERFORMED AT: [facility] [employer] [facility] [address] [place] [phone] MAYRA CONNOLLY MD [place]/Lambda Light Chain Ser Reviewed date:07/06/2023 11:22:50 AM Interpretation: Performing Lab:[facility], [address] [place] [phone] Notes/Report: [place], Serum 330 176-443 mg/dL Lambda, Serum 194 91-240 mg/dL [place]/Lambda Ratio, Serum 1.70 1.29-2.55 This assay provides [...] and amyloidosis. THIS TEST WAS PERFORMED AT: [facility] [address] [place] [address] MONTANA COLLINS MD,PHD,RED Protein Electrophoresis, [facility] Reviewed date:07/03/2023 04:14:26 AM Interpretation: Performing Lab:[facility], [address] [place] [phone] Notes/Report: Prot Elec - Total Protein 6.5 [...] be considered. THIS TEST WAS PERFORMED AT: [facility] [address] [phone] MAYRA CONNOLLY MD Complete Blood Count Auto Di ff Reviewed date:11/02/2023 11:07:48 AM Interpretation: Performing Lab:[facility], [address] [place] [phone] Notes/Report: White Blood Count 6.5 4.8-10.8 X10*3/uL [...] NRBC Abs Auto 0.000 0.0-0.012 X10*3/uL Comprehensive [place]. Panel Fa st Reviewed date:11/02/2023 11:07:48 AM Interpretation: Performing Lab:[facility], [address] [place] [phone] Notes/Report: Sodium 141 135-145 mmol/L Potassium 4.1 3.3-5.1 mmol/L Chloride 101 96-108 mmol/L Carbon Dioxide 31 22-29 mmol/L Anion Gap 13 12-20 Blood Urea Nitrogen 49 9-16 mg/dL Creatinine 1.35 0.5-1.4 mg/dL Estimated Glomerular Filt Rate 50 NOTE: For -Serbian individuals, multiply the result by 1.210. Chronic [...] Panel Reviewed date:11/02/2023 11:07:48 AM Interpretation: Performing Lab:[facility], [address] [place] [phone] Notes/Report: Triglycerides 76 <150 mg/dL Desirable Triglyceride: [...] Antigen Reviewed date:11/02/2023 11:07:48 AM Interpretation: Performing Lab:[address] [phone] Notes/Report: Prostate Specific Antigen < 0.10 <0.05-4.0 ng/mL PSA methodology: Isaac Alinity i Chemiluminescent Microparticle Immunoassay (CMIA) [place]/Lambda Lt Ch,Free w ra t Reviewed date:01/27/2024 09:04:55 AM Interpretation: Performing Lab:[facility], [address] [place] [phone] Notes/Report: [place] Light Chain, Free Serum 116.2 3.3-19.4 mg/L Lambda Light Chain, Free Serum 40.2 5.7-26.3 mg/L [place]/Lambda Lt Ch Free Ratio 2.89 0.26-1.65 Free [...] these disorders. THIS TEST WAS PERFORMED AT: [facility] [address] [place] [phone] MAYRA CONNOLLY MD [place]/Lambda Light Chain Ser um Reviewed date:01/27/2024 09:04:55 AM Interpretation: Performing Lab:[facility], [address] [place] [phone] Notes/Report: [place], Serum 439 176-443 mg/dL Lambda, Serum 236 91-240 mg/dL [place]/Lambda Ratio, Serum 1.86 1.29-2.55 This assay provides [...] and amyloidosis. THIS TEST WAS PERFORMED AT: [facility] [address] [place] [address] MONTANA COLLINS MD,PHD,RED Protein Electrophoresis, Ser um Reviewed date:11/06/2023 11:23:04 AM Interpretation: Performing Lab:[facility], [address] [place] [phone] Notes/Report: Prot Elec - Total Protein 7.3 [...] be considered. THIS TEST WAS PERFORMED AT: [facility] [facility] [address] [place] [phone] MAYRA CONNOLLY MD Immunofixation Pnl, Serum Reviewed date:11/06/2023 11:23:04 AM Interpretation: Performing Lab:[facility], [address] [place] [phone] Notes/Report: IgG 2023 600-1540 mg/dL IgA 196 70-320 mg/dL IgM 109 50-300 mg/dL THIS TEST WAS PERFORMED AT: [facility] [address] [place] [phone] MAYRA CONNOLLY MD Immunofixation Interpretation SEE NOTE IgG lambda monoclona l band present. Prostate Specific Antigen Reviewed date:02/27/2024 06:40:50 AM Interpretation: Performing Lab:[address] [phone] Notes/Report: Prostate Specific Antigen < 0.10 <0.05-4.0 ng/mL PSA methodology: simpleFLOORSnity i Chemiluminescent Microparticle Immunoassay (CMIA) Reason For [...] Problem Status W/U Status Risk Notes Problem 6854371 Former smoker (Z87.891) Active confirmed He has a plan to prevent relapse and times of stress or illness. Problem Obesity (183047869) Obesity (E66.9) Active confirmed Problem Malignant tumor of prostate (532069299) Malignant neoplasm of prostate (C61) Active confirmed His P and 6 and a is stable and not rising. There was no sign of prostate cancer or urothelial carcinoma on today's examination. Problem Malignant tumor of urinary bladder (880470985) Malignant neoplasm of bladder, unspecified (C67.9) Active confirmed There was no sign at this time of metastatic or recurrent bbladder cancer. Problem Monoclonal gammopathy (21491151) Monoclonal gammopathy (D47.2) Active confirmed His IgG is 1193 which is stable. The kappa lambda ratio is 37.6. His total protein is 7.1. He is stable at this time. Problem Obesity (765424943) Other obesity (E66.8) Active confirmed His body mass index is 36. Both legs are edematous. We discussed the elements of a sodium restricted, weight loss diet. Problem Obesity (343858284) Obesity, unspecified (E66.9) Active confirmed He has gained 17 pounds almost all of which is fluid retention. His diuretic was increased by cardiology recently. Problem Other male erectile dysfunction (N52.8) Active confirmed Thiss issue has been addressed with medication. Problem Benign prostatic hypertrophy without outflow obstruction (758146974) Benign prostatic hyperplasia without lower urinary tract symptoms (N40.0) Active confirmed He has been rising from sleep twice a night. This is partly due to his diuretic. We discussed lifestyle modification as a way of reducing nocturnal urination. He is switching his urology care to [facility]. Records will be forwarded. Vital Signs Heart Rate 69 /min 03/04/2024 Temperature 98.6 degrees Fahrenheit 03/04/2024 Blood pressure diastolic 70 mm Hg 03/04/2024 Height 63 in 03/04/2024 Blood pressure systolic 111 mm Hg 03/04/2024 Weight 206 lbs 03/04/2024 BMI 36.49 kg/m2 03/04/2024 Encounters Encounter Location Date Provider Diagnosis Chago Peres III, MD [address] [place] [address] [place] [address] 07/06/2023 Chago Peres Benign prostatic hyperplasia without lower urinary tract symptoms N40.0 ; Other male erectile dysfunction N52.8 ; Other obesity E66.8 ; Monoclonal gammopathy D47.2 ; Malignant neoplasm of bladder, unspecified C67.9 and Malignant neoplasm of prostate C61 Chago Peres III, MD [address] [place] [address] [place] [address] 11/06/2023 Chago Peres Benign prostatic hyperplasia without lower urinary tract symptoms N40.0 ; Monoclonal gammopathy D47.2 ; Malignant neoplasm of prostate C61 ; Malignant neoplasm of bladder, unspecified C67.9 ; Other male erectile dysfunction N52.8 ; Former smoker Z87.891 ; Obesity 278.00 and Peripheral edema R60.9 Chago Peres III, MD [address] [place] [address] [place] [address] 03/04/2024 Chago Peres Benign prostatic hyperplasia without [...] He is switching his urology care to [facility]. Records will be forwarded. 11/06/2023 Monoclonal [...] He is switching his urology care to [facility]. Records will be forwarded. 03/04/2024 Monoclonal [...] He is switching his urology care to [facility]. Records will be forwarded. 07/06/2023 Other [...] Details Provider Name:Chago Peres, 07/04/2024 11:00:00 AM, [address] [place] [address] DR, [facility] [address], [place], [address], Insurance Providers Payer Name Payer Address Payer Phone Subscriber Number Group Number Insured Name Patient Relationship to Insured Coverage Start Date Coverage End Date MEDICARE NGS [address] [place] [phone] [id number] Jung Funes Self - patient is the insured [address] [place] [phone] [id number] Jung Funes Self - patient is the insured Medical (General) History Medical History History ICD Code benign prostatic hyperplasia (BPH) erectile dysfunction MGUS bladder cancer prostate cancer Surgical History Surgery Date(Month/Year) Vericose veins removal 02/2019
--- OUTSIDE RECORDS SUMMARY | 2024-06-05 10:18 | XMS_ITS ---
Author Organization Chago Peres III, MD Address [address] [place] [address] Care Team Providers Care Utilization Management Rn Name Role Phone HAZEL DAVIS MD Primary Care Provider Chago De La Cruz Unavailable [phone] Allergies Allergen (clinical drug ingredient) Drug/Non Drug [...] Status W/U Status Risk Notes Problem Obesity (141108111) Obesity (E66.9) Active confirmed Vital Signs Temperature 97.6 degrees Fahrenheit 11/06/19 24 Blood pressure systolic 128 mm Hg 11/06/19 24 Blood pressure diastolic 66 mm Hg 024 Heart Rate 67 /min 11/06/2023 Height 63 in 11/06/2023 Weight 189 lbs 11/06/2023 BMI 33.48 kg/m2 11/06/2023 Encounters Encounter Location Date Provider Diagnosis Chago Peres III, MD [address] [place] [address] [place] [address] 11/06/2023 Chago Peres Benign prostatic hyperplasia without [...] He is switching his urology care to [facility]. Records will be forwarded. 11/06/2023 Monoclonal gammopathy [...] labs Provider Name:Chago Peres, 07/04/2024 11:00:00 AM, [address] [place] [address] DR, [address], [facility], [address], Progress Notes * Jung FUNES CDOB:[birth year] (83 yo M)Acc No.[id number]:11/06/2023 Progress Notes Patient:?Jung Funes Provider:?Chago Peres MD :1940???Age:83 Y???Sex:Male Gagan e:11/06/2023 Address:[address] [place] [address], [id number] Pcp:HAZEL DAVIS MD Subjective: [...] HR:67, Temp:97.6, Wt-k.73. * ???Past Orders: Lab:[facility] [place]. Laminee l Fast * Order Date 11/01/2023 [...] He is switching his urology care to [facility]. Records will be forwarded.?2.?Monoclonal gammopathy - D47.2, [...] Peres MD Date:?10/10 Generated for Printi ng/Tato/eTransmitting on:?06/05/2024 10:17 AM EST History and Physical Notes * [...]
--- OUTSIDE RECORDS SUMMARY | 2024-06-05 10:18 | XMS_ITS ---
Author Organization Chago Peres III, MD Address [address] [place] [address] Care Team Providers Care Corn Grinder Name Role Phone HAZEL DAVIS MD Primary Care Provider Chago De La Cruz [facility] [phone] Allergies Allergen (clinical drug ingredient) Drug/Non Drug [...] Date Provider Diagnosis Chago Peres III, MD [address] [place] [address] [place] [address] 07/06/2023 Chago Peres Benign prostatic hyperplasia without [...] is switching his urology care to [facility]. Records will be forwarded. 07/06/2023 Other male [...] OV Provider Name:Chago Peres, 07/04/2024 11:00:00 AM, [address] [place] [address] DR [facility] [place], [place], [address], Progress Notes * Jung FUNES CDOB:[birth year] (83 yo M)Acc No.[id number]:07/06/2023 Progress Notes Patient:?Jung Funes Provider:?Chago Peres MD :1940???Age:83 Y???Sex:Male Gagan e:07/06/2023 Address:[address] [place] [address], [facility] [id number] Pcp:HAZEL DAVIS MD Subjective: * Chief Complaints: [...] past??No ? He wwas recently in the [facility] for 33 days for cardiovascular issues. [...] mg/dL) 9.2 (Ref Range: 8.4-10.2 mg/dL) * Lab:[place]/Lambda Lt Ch,Free w rat * Order Date 06/28/2023 11/08/2022 08/11/2022 [place] Light Chain, Free Serum 81.7?A (Ref Range: 3.3-19.4 mg/L) 54.6?A (Ref Range: 3.3-19.4 mg/L) 58.4?A (Ref Range: 3.3-19.4 mg/L) Lambda Light Chain, Free Serum 38.9?A (Ref Range: 5.7-26.3 mg/L) 27.9?A (Ref Range: 5.7-26.3 mg/L) 31.8?A (Ref Range: 5.7-26.3 mg/L) [place]/Lambda Lt Ch Free Ratio 2.10?A (Ref Range: 0.26-1.65) 1.96?A (Ref Range: 0.26-1.65) 1.84?A (Ref Range: 0.26-1.65) * Lab:[place]/Lambda Light Chain Serum * Order Date 06/28/2023 11/08/2022 08/11/2022 [place], Serum 330 (Ref Range: 176-443 mg/dL) 276 (Ref Range: 176-443 mg/dL) 301 (Ref Range: 176-443 mg/dL) Lambda, Serum 194 (Ref Range: 91-240 mg/dL) 203 (Ref Range: 91-240 mg/dL) 218 (Ref Range: 91-240 mg/dL) [place]/Lambda Ratio, Serum 1.70 (Ref Range: 1.29-2.55) 1.36 [...] is switching his urology care to [facility]. Records will be forwarded.?2.?Other male erectile dysfunction [...] Peres MD Date:?06/12 Generated for Printi ng/Tato/eTransmitting on:?06/05/2024 10:18 AM EST History and Physical Notes * HPI (History of Present Illness) Category Sub-Category Detail Notes COVID-19 Screening Questions Have you had any new onset fever, chills, cough, congestion, sore throat, shortness of breath, muscle aches?: No Have you been exposed to the virus withi n the last 10 days?: No Have you travelled internationally in [facility] last 10 days?: No Have you been [...]
== END 2024-06-05 10:42 | disposition home or self-care (01) ==
PROVIDERS: PCP Internal Medicine; Visit Provider Internal Medicine Hypertension Specialist
DX: N17.9 Acute kidney failure, unspecified (principal); D47.2 Monoclonal gammopathy; N18.32 Chronic kidney disease, stage 3b; N32.0 Bladder-neck obstruction
CPT/HCPCS: 99215; G2211

== ENCOUNTER → 2024-06-05 10:16 | Outpatient (BNVA) | payer MEDICARE, OTHER, SELFPAY | PROVIDERS: PCP Internal Medicine; Visit Provider Internal Medicine Hypertension Specialist | DX: N17.9 Acute kidney failure, unspecified (principal); N18.32 Chronic kidney disease, stage 3b; N32.0 Bladder-neck obstruction; D47.2 Monoclonal gammopathy | CPT/HCPCS: 99212 ==

== ENCOUNTER 2024-06-09 10:50 | Outpatient (REF) | payer MEDICARE, OTHER, SELFPAY ==
--- OUTSIDE RECORDS SUMMARY | 2024-06-09 11:17 | XMS_ITS ---
Author Organization Chago Peres III, MD Address [address] [address] Care Team Providers Care Vice President Biostatistics Name Role Phone HAZEL DAVIS MD Primary Care Provider Chago De La Cruz [facility] [phone] Allergies Allergen (clinical drug ingredient) Drug/Non Drug [...] Date Provider Diagnosis Chago Peres III, MD [address] [place] [address] [place] [address] 07/06/2023 Chago Peres Benign prostatic hyperplasia without [...] He is switching his urology care to [facility]. Records will be forwarded. 07/06/2023 Other [...] OV Provider Name:Chago Peres, 07/04/2024 11:00:00 AM, [address] [place] [address] [address] [facility] [place], [place], [address], Progress Notes * Jung FUNES CDOB:[birth year] (83 yo M)Acc No.[id number]:07/06/2023 Progress Notes Patient:?Jung Funes Provider:?Chago Peres MD :1940???Age:83 Y???Sex:Male Gagan e:07/06/2023 Address:[address] [place] [address], [facility] [id number] Pcp:HAZEL DAVIS MD Subjective: * Chief Complaints: [...] past??No ? He wwas recently in the [facility] for 33 days for cardiovascular issues. [...] mg/dL) 9.2 (Ref Range: 8.4-10.2 mg/dL) * Lab:[place]/Lambda Lt Ch,Free w rat * Order Date 06/28/2023 11/08/2022 08/11/2022 [place] Light Chain, Free Serum 81.7?A (Ref Range: 3.3-19.4 mg/L) 54.6?A (Ref Range: 3.3-19.4 mg/L) 58.4?A (Ref Range: 3.3-19.4 mg/L) Lambda Light Chain, Free Serum 38.9?A (Ref Range: 5.7-26.3 mg/L) 27.9?A (Ref Range: 5.7-26.3 mg/L) 31.8?A (Ref Range: 5.7-26.3 mg/L) [place]/Lambda Lt Ch Free Ratio 2.10?A (Ref Range: 0.26-1.65) 1.96?A (Ref Range: 0.26-1.65) 1.84?A (Ref Range: 0.26-1.65) * Lab:[place]/Lambda Light Chain Serum * Order Date 06/28/2023 11/08/2022 08/11/2022 [place], Serum 330 (Ref Range: 176-443 mg/dL) 276 (Ref Range: 176-443 mg/dL) 301 (Ref Range: 176-443 mg/dL) Lambda, Serum 194 (Ref Range: 91-240 mg/dL) 203 (Ref Range: 91-240 mg/dL) 218 (Ref Range: 91-240 mg/dL) [place]/Lambda Ratio, Serum 1.70 (Ref Range: 1.29-2.55) 1.36 [...] mass , centripital obesity.?RECTAL EXAM:?not examined.?MUSCULOSKELETAL:?Pitting edema mcc up to the knees.?PERIPHERAL PULSES:?normal.?NEUROLOGIC:?alert and oriented, [...] He is switching his urology care to [facility]. Records will be forwarded.?2.?Other male erectile [...] Peres MD Date:?06/12 Generated for Printi ng/Daring/eTransmitting on:?06/09/2024 11:17 AM EST History and Physical Notes * HPI (History of Present Illness) Category Sub-Category Detail Notes COVID-19 Screening Questions Have you had any new onset fever, chills, cough, congestion, sore throat, shortness of breath, muscle aches?: No Have you been exposed to the virus withi n the last 10 days?: No Have you travelled internationally in [facility] last 10 days?: No Have you been [...]
--- OUTSIDE RECORDS SUMMARY | 2024-06-09 11:17 | XMS_ITS ---
Author Organization Chago Peres III, MD Address [address] [place] [address] Care Team Providers Care Director Data Processing Name Role Phone HAZEL DAVIS MD Primary Care Provider Chago De La Cruz Unavailable [phone] Allergies Allergen (clinical drug ingredient) Drug/Non Drug [...] Status W/U Status Risk Notes Problem Obesity (082752689) Obesity (E66.9) Active confirmed Vital Signs Temperature 97.6 degrees Fahrenheit 11/06/19 24 Blood pressure systolic 128 mm Hg 11/06/19 24 Blood pressure diastolic 66 mm Hg 024 Heart Rate 67 /min 11/06/2023 Height 63 in 11/06/2023 Weight 189 lbs 11/06/2023 BMI 33.48 kg/m2 11/06/2023 Encounters Encounter Location Date Provider Diagnosis Chago Peres III, MD [address] [place] [address] [place] [address] 11/06/2023 Chago Peres Benign prostatic hyperplasia without [...] He is switching his urology care to [facility]. Records will be forwarded. 11/06/2023 Monoclonal [...] labs Provider Name:Chago Peres, 07/04/2024 11:00:00 AM, [address] [place] [address] [address], [address], [facility] [place], [address], Progress Notes * Jung FUNES CDOB:[birth year] (83 yo M)Acc No.[id number]:11/06/2023 Progress Notes Patient:?Jung Funes Provider:?Chago Peres MD :1940???Age:83 Y???Sex:Male Gagan e:11/06/2023 Address:[address] [place] [address], [id number] Pcp:HAZEL DAVIS MD Subjective: [...] HR:67, Temp:97.6, Wt-k.73. * ???Past Orders: Lab:[facility] [place]. Laminee l Fast * Order Date 11/01/2023 [...] He is switching his urology care to [facility]. Records will be forwarded.?2.?Monoclonal gammopathy - [...] Peres MD Date:?10/10 Generated for Printi ng/Tato/eTransmitting on:?06/09/2024 11:17 AM EST History and Physical [...]
--- OUTSIDE RECORDS SUMMARY | 2024-06-09 11:18 | XMS_ITS | Patient Health Record ---
Author Organization Chago Peres III, MD Address [address] [place] [address] Care Team Providers Care Senior Game Advisor Name Role Phone HAZEL DAVIS MD Primary Care Provider hCago De La Cruz Unavailable [phone] Allergies Allergen (clinical drug ingredient) Drug/Non Drug Allergy documented on EMR Reaction Allergy Type Onset Date Status No Known Drug Allergy Unknown Drug Allergy Active Results Component Value Reference Range Notes Complete Blood Count Auto Di ff Reviewed date:07/01/2023 08:43:36 AM Interpretation: Performing Lab:[facility], [address] [place] [phone] Notes/Report: White Blood Count 7.0 4.8-10.8 X10*3/uL [...] NRBC Abs Auto 0.000 0.0-0.012 X10*3/uL Comprehensive [place]. Panel Fa st Reviewed date:07/01/2023 08:43:36 AM Interpretation: Performing Lab:[facility], [address] [place] [phone] Notes/Report: Sodium 145 135-145 mmol/L Potassium 3.3 3.3-5.1 mmol/L Chloride 104 96-108 mmol/L Carbon Dioxide 30 22-29 mmol/L Anion Gap 14 12-20 Blood Urea Nitrogen 25 9-16 mg/dL Creatinine 1.20 0.5-1.4 mg/dL Estimated Glomerular Filt Rate 58 NOTE: For -Georgian individuals, multiply the result by 1.210. Chronic [...] Panel Reviewed date:07/01/2023 08:43:36 AM Interpretation: Performing Lab:[facility], [address] [place] [phone] Notes/Report: Triglycerides 82 <150 mg/dL Desirable Triglyceride: [...] Antigen Reviewed date:07/01/2023 08:43:36 AM Interpretation: Performing Lab:[facility], [address] [place] [phone] Notes/Report: Prostate Specific Antigen 0.11 <0.05-4.0 ng/mL PSA methodology: Isaac Alinity i Chemiluminescent Microparticle Immunoassay (CMIA) Preston/Lambda Lt Ch,Free w ra t Reviewed date:07/06/2023 11:22:43 AM Interpretation: Performing Lab:[facility], [address] [place] [phone] Notes/Report: Preston Light Chain, Free Serum 81.7 3.3-19.4 mg/L Lambda Light Chain, Free Serum 38.9 5.7-26.3 mg/L Preston/Lambda Lt Ch Free Ratio 2.10 0.26-1.65 Free [...] these disorders. THIS TEST WAS PERFORMED AT: [facility] [address] [place] [phone] MAYRA CONNOLLY MD Preston/Lambda Light Chain Ser Reviewed date:07/06/2023 11:22:50 AM Interpretation: Performing Lab:[facility], [address] [place] [phone] Notes/Report: Preston, Serum 330 176-443 mg/dL Lambda, Serum 194 91-240 mg/dL Preston/Lambda Ratio, Serum 1.70 1.29-2.55 This assay provides [...] and amyloidosis. THIS TEST WAS PERFORMED AT: [facility] [address] [place] [address] MONTANA COLLINS MD,PHD,RED Protein Electrophoresis, [facility] Reviewed date:07/03/2023 04:14:26 AM Interpretation: Performing Lab:[facility], [address] [place] [phone] Notes/Report: Prot Elec - Total Protein 6.5 [...] be considered. THIS TEST WAS PERFORMED AT: [facility] [address] [address] MAYRA CONNOLLY MD Complete Blood Count Auto Di ff Reviewed date:11/02/2023 11:07:48 AM Interpretation: Performing Lab:[facility], [address] [place] [phone] Notes/Report: White Blood Count 6.5 4.8-10.8 X10*3/uL [...] NRBC Abs Auto 0.000 0.0-0.012 X10*3/uL Comprehensive [place]. Panel Fa st Reviewed date:11/02/2023 11:07:48 AM Interpretation: Performing Lab:[facility], [address] [place] [phone] Notes/Report: Sodium 141 135-145 mmol/L Potassium 4.1 3.3-5.1 mmol/L Chloride 101 96-108 mmol/L Carbon Dioxide 31 22-29 mmol/L Anion Gap 13 12-20 Blood Urea Nitrogen 49 9-16 mg/dL Creatinine 1.35 0.5-1.4 mg/dL Estimated Glomerular Filt Rate 50 NOTE: For -Georgian individuals, multiply the result by 1.210. Chronic [...] Panel Reviewed date:11/02/2023 11:07:48 AM Interpretation: Performing Lab:[facility], [address] [place] [phone] Notes/Report: Triglycerides 76 <150 mg/dL Desirable Triglyceride: [...] Antigen Reviewed date:11/02/2023 11:07:48 AM Interpretation: Performing Lab:[address] [phone] Notes/Report: Prostate Specific Antigen < 0.10 <0.05-4.0 ng/mL PSA methodology: Isaac Alinity i Chemiluminescent Microparticle Immunoassay (CMIA) Preston/Lambda Lt Ch,Free w ra t Reviewed date:01/27/2024 09:04:55 AM Interpretation: Performing Lab:[facility], [address] [place] [phone] Notes/Report: Preston Light Chain, Free Serum 116.2 3.3-19.4 mg/L Lambda Light Chain, Free Serum 40.2 5.7-26.3 mg/L Preston/Lambda Lt Ch Free Ratio 2.89 0.26-1.65 Free [...] these disorders. THIS TEST WAS PERFORMED AT: [facility] [address] [place] [phone] MAYRA CONNOLLY MD Preston/Lambda Light Chain Ser um Reviewed date:01/27/2024 09:04:55 AM Interpretation: Performing Lab:[facility], [address] [place] [phone] Notes/Report: Preston, Serum 439 176-443 mg/dL Lambda, Serum 236 91-240 mg/dL Preston/Lambda Ratio, Serum 1.86 1.29-2.55 This assay provides [...] and amyloidosis. THIS TEST WAS PERFORMED AT: [facility] [address] [place] [address] MONTANA COLLINS MD,PHD,RED Protein Electrophoresis, Ser um Reviewed date:11/06/2023 11:23:04 AM Interpretation: Performing Lab:[facility], [address] [place] [phone] Notes/Report: Prot Elec - Total Protein 7.3 [...] be considered. THIS TEST WAS PERFORMED AT: [facility] [address] [place] [phone] MAYRA CONNOLLY MD Immunofixation Pnl, Serum Reviewed date:11/06/2023 11:23:04 AM Interpretation: Performing Lab:[facility], [address] [place] [phone] Notes/Report: IgG 2023 600-1540 mg/dL IgA 196 70-320 mg/dL IgM 109 50-300 mg/dL THIS TEST WAS PERFORMED AT: [facility] [address] [place] [phone] MAYRA CONNOLLY MD Immunofixation Interpretation SEE NOTE IgG lambda monoclona l band present. Prostate Specific Antigen Reviewed date:02/27/2024 06:40:50 AM Interpretation: Performing Lab:[address] [phone] Notes/Report: Prostate Specific Antigen < 0.10 <0.05-4.0 ng/mL PSA methodology: FK [employer] i Chemiluminescent Microparticle Immunoassay (CMIA) Reason For [...] Problem Status W/U Status Risk Notes Problem 5632844 Former smoker (Z87.891) Active confirmed He has a plan to prevent relapse and times of stress or illness. Problem Obesity (226293315) Obesity (E66.9) Active confirmed Problem Malignant tumor of prostate (209129856) Malignant neoplasm of prostate (C61) Active confirmed His P and 6 and a is stable and not rising. There was no sign of prostate cancer or urothelial carcinoma on today's examination. Problem Malignant tumor of urinary bladder (997360088) Malignant neoplasm of bladder, unspecified (C67.9) Active confirmed There was no sign at this time of metastatic or recurrent bbladder cancer. Problem Monoclonal gammopathy (97021447) Monoclonal gammopathy (D47.2) Active confirmed His IgG is 1193 which is stable. The kappa lambda ratio is 37.6. His total protein is 7.1. He is stable at this time. Problem Obesity (947242023) Other obesity (E66.8) Active confirmed His body mass index is 36. Both legs are edematous. We discussed the elements of a sodium restricted, weight loss diet. Problem Obesity (864742026) Obesity, unspecified (E66.9) Active confirmed He has gained 17 pounds almost all of which is fluid retention. His diuretic was increased by cardiology recently. Problem Other male erectile dysfunction (N52.8) Active confirmed Thiss issue has been addressed with medication. Problem Benign prostatic hypertrophy without outflow obstruction (457200595) Benign prostatic hyperplasia without lower urinary tract symptoms (N40.0) Active confirmed He has been rising from sleep twice a night. This is partly due to his diuretic. We discussed lifestyle modification as a way of reducing nocturnal urination. He is switching his urology care to [facility]. Records will be forwarded. Vital Signs Heart Rate 69 /min 03/04/2024 Temperature 98.6 degrees Fahrenheit 03/04/2024 Blood pressure diastolic 70 mm Hg 03/04/2024 Height 63 in 03/04/2024 Blood pressure systolic 111 mm Hg 03/04/2024 Weight 206 lbs 03/04/2024 BMI 36.49 kg/m2 03/04/2024 Encounters Encounter Location Date Provider Diagnosis Chago Peres III, MD [address] [place] [address] [place] [address] 07/06/2023 Chago Peres Benign prostatic hyperplasia without lower urinary tract symptoms N40.0 ; Other male erectile dysfunction N52.8 ; Other obesity E66.8 ; Monoclonal gammopathy D47.2 ; Malignant neoplasm of bladder, unspecified C67.9 and Malignant neoplasm of prostate C61 Chago Peres III, MD [address] [place] [address] [place] [address] 11/06/2023 Chago Peres Benign prostatic hyperplasia without lower urinary tract symptoms N40.0 ; Monoclonal gammopathy D47.2 ; Malignant neoplasm of prostate C61 ; Malignant neoplasm of bladder, unspecified C67.9 ; Other male erectile dysfunction N52.8 ; Former smoker Z87.891 ; Obesity 278.00 and Peripheral edema R60.9 Chago Peres III, MD [address] [place] [address] [place] [address] 03/04/2024 Chago Peres Benign prostatic hyperplasia without [...] [facility]. Records will be forwarded. 11/06/2023 Monoclonal [...] [facility]. Records will be forwarded. 03/04/2024 Monoclonal [...] Details Provider Name:Chago Peres, 07/04/2024 11:00:00 AM, [address] [place] [address] DR, [facility] [address], [place], [address], Insurance Providers Payer Name Payer Address Payer Phone Subscriber Number Group Number Insured Name Patient Relationship to Insured Coverage Start Date Coverage End Date MEDICARE NGS [address] [place] [address] [id number] Jung Funes Self - patient is the insured [address] [place] [address] [id number] Jung Funes Self - patient is the insured Medical (General) History Medical History History ICD Code benign prostatic hyperplasia (BPH) erectile dysfunction MGUS bladder cancer prostate cancer Surgical History Surgery Date(Month/Year) Vericose veins removal 02/2019
[2024-06-09 13:48] LABS: Hematocrit 31.7 % (42.0-52.0); Hemoglobin 10.5 g/dl (14.0-18.0); Mean Corpuscular HGB Conc 33.1 g/dl (31.0-36.0); Mean Corpuscular Hemoglobin 30.8 pg (27.0-33.0); Mean Platelet Volume 9.6 fL (9.4-12.4); Platelet Count 243 X10*3/uL (160-400); Red Blood Count 3.41 X10*6/uL (4.60-5.80); Red Cell Distribution Width 15.8 % (11.0-16.0); White Blood Count 7.2 X10*3/uL (4.8-10.8)
[2024-06-09 14:01] LABS: Anion Gap 15 (12-20); Blood Urea Nitrogen 70 mg/dL (9-16); Calcium 8.5 mg/dL (8.4-10.2); Carbon Dioxide 28 mmol/L (22-29); Chloride 96 mmol/L (96-108); Estimated Glomerular Filt Rate 14; Glucose Random 120 mg/dL (60-115); Potassium 3.6 mmol/L (3.3-5.1); Sodium 135 mmol/L (135-145)
== END 2024-06-09 10:51 | disposition home or self-care (01) ==
LOC: HO.HVNA 10:50
PROVIDERS: PCP Internal Medicine; Visit Provider Internal Medicine Hypertension Specialist
DX: N18.32 Chronic kidney disease, stage 3b (principal); N17.9 Acute kidney failure, unspecified
CPT/HCPCS: 36415; 80048; 85027